=== PATIENT | female | born 1960 | race Caucasian/White ===

== ENCOUNTER 2020-04-16 16:35 | Inpatient (IN) | payer MEDICARE, SELFPAY ==
[2020-04-16 16:36] VITALS: BP 126/64; PULSE 78; RESP 16; TEMP 36.7; O2SAT 99; BMI 37.9
--- NOTE | 2020-04-16 16:37 | XR_ITS ---
PROCEDURE: XR ANKLE LT MIN 3V CLINICAL INDICATION: PAIN COMPARISON: No exams were available for comparison FINDINGS: There is an old fracture involving the tip of the medial malleolus. There is diffuse soft tissue swelling. An old fracture also noted at the posterior tibial region. No acute fracture or dislocation. The joint space is fairly well preserved. IMPRESSION: Chronic changes, no acute finding Dictated by: Victor Manuel Duarte MD 04/16/2020 17:12 Victor Manuel Duarte MD in [place] 04/16/2020 17:12
--- NOTE | 2020-04-16 16:37 | XR_ITS ---
PROCEDURE: XR FOOT LT MIN 3V CLINICAL INDICATION: PAIN COMPARISON: No exams were available for comparison FINDINGS: Hammertoe deformity involves the 1st through 5th toes. There is diffuse soft tissue swelling. Osteoarthritic changes are present at the talonavicular joint. No acute fracture or bony erosive process evident. Other findings:None. IMPRESSION: Hammertoe deformity with degenerative change and diffuse soft tissue swelling Dictated by: Victor Manuel Duarte MD 04/16/2020 17:14 Victor Manuel Duarte MD in [facility] 04/16/2020 17:14
--- NOTE | 2020-04-16 17:15 | HMH.EDGENADL ---
ED Disposition Condition on Discharge: Good - Critical Care Critical Care Time: No <Ced Oconnor - Last Filed: 04/16/20 19:57> <Casimiro Barraza - Last Filed: 04/16/20 22:09> Clinical Impression: Edema of left foot, Left foot pain, Cellulitis and abscess of foot, LANCE (obstructive sleep apnea), Obesity (BMI 30-39.9), Elevated erythrocyte sedimentation rate, Elevated C-reactive protein (CRP) HTN (hypertension) Qualifiers: Hypertension type: essential hypertension Qualified Code(s): I10 - Essential (primary) hypertension Anemia Qualifiers: Anemia type: unspecified type Qualified Code(s): D64.9 - Anemia, unspecified Disposition: Admitted as Observation Referrals: Casimiro Barraza MD [Primary Care Provider] - Attestation: On 04/16/20, the high probability of a clinically significant, sudden or life threatening deterioration of the following system(s) required my full and direct attention, intervention and personal management. The time I documented below is in addition to time spent performing reported procedures but includes the following listed in this critical care notation. Medical Decision Making - Addison Inquiry Pt receiving controlled substance: No - Lab Data Result diagrams: 04/16/20 17:45 04/16/20 17:45 - Radiology Data #1 Image(s): Ankle, Foot/Toes Image Reviewed: Yes I reviewed the patient's radiology image, Yes I have reviewed radiologist's interpretation - Physician Consults Physician Consulted: Madi Time: 19:58 Reason -: Admission, Pt condition Comment/Response: Dr. Barraza is present in the emergency department and saw the patient. He states the patient's left foot is not normally that big. He request CT, inflammatory markers, and he will admit the patient to his service. <Ced Oconnor - Last Filed: 04/16/20 19:57> - Medical Records Medical records reviewed: Yes: I reviewed the patient's medical records. - Lab Data Lab results reviewed: Yes: I reviewed the patient's lab results. Result diagrams: 04/16/20 17:45 04/16/20 17:45 - CT Data CT Scan: Other Time Received: 22:[address] Reviewed: Yes: I have viewed the radiologist's interpretation Preliminary Findings: Abnormal (cellulitis ) <Casimiro Barraza - Last Filed: 04/16/20 22:09> Vital Signs: 04/16/20 16:36 04/16/20 20:11 Temperature 98.1 F Temperature Source Oral Pulse Rate [Radial] 78 80 Respiratory Rate 16 16 Blood Pressure [Right Arm] 126/64 138/68 Blood Pressure Mean [Right Arm] 84 91 Blood Pressure Source [Right Arm] Automatic Cuff Blood Pressure Position [Right Arm] Sitting Sitting 02 Sat by Pulse Oximetry 99 98 Oxygen Delivery Method Room Air Room Air - Lab Data Lab Results 04/16/20 17:45: WBC 7.4, RBC 3.14 L, Hgb 9.8 L, Hct 29.8 L, MCV 94.8, MCH 31.2, MCHC 33.0, RDW 13.8, Plt Count 226, MPV 8.1, Neut % (Auto) 67.2, Lymph % (Auto) 22.0, [place] % (Auto) 9.2, Eos % (Auto) 1.2, Baso % (Auto) 0.4, Neut # (Auto) 5.0, Lymph # (Auto) 1.6, [place] # (Auto) 0.7, Eos # (Auto) 0.1, Baso # (Auto) 0.0 04/16/20 17:45: Sodium 134 L, Potassium 3.7, Chloride 102, Carbon Dioxide 23, Anion Gap 12.7, BUN 13, Creatinine 1.00, Estimated Creat Clear 99, Estimated GFR 56 L, Est GFR ( Amer) 68, Glucose 101 H, Calcium 8.9 04/16/20 17:45: D-Dimer 0.86 04/16/20 17:45: Lactate 0.9 04/16/20 17:45: ESR 118 H 04/16/20 17:45: C-Reactive Protein 306.0 H 04/16/20 17:45: Procalcitonin 0.179 04/16/20 19:45: SARS-CoV-2 IgG Ab (Rapid) Negative, SARS-CoV-2 IgM Ab (Rapid) Negative Orders (Tests/Meds): ED MEDICATIONS Generic Name Dose Route Start Last Admin Trade Name Freq PRN Reason Stop Dose Admin Vancomycin HCl 2,000 mg/ 250 mls @ 125 mls/hr 04/16/20 23:00 Sodium Chloride IV 04/17/20 00:59 ONCE ONE Protocol Vancomycin HCl 1,500 mg/ 250 mls @ 125 mls/hr 04/17/20 11:00 Sodium Chloride IV 05/01/20 10:59 Q12 [facility] Protocol Miscellaneous 1 each 04/16/20 22:00 Vancomycin Consult Re
[2020-04-16 18:04] LABS: Chloride 102 mmol/L (98-107); Sodium 134 mmol/L (136-145)
[2020-04-16 18:05] LABS: Potassium 3.7 mmoL/L (3.5-5.1)
[2020-04-16 18:07] LABS: Anion Gap 12.7 mEq/L (5-15); Basophils % 0.4 % (0.1-2.0); Blood Urea Nitrogen 13 mg/dl (7-17); Carbon Dioxide 23 mmol/L (22.0-30.0); Creatinine Clearance Estimated 99 mL/min (50-200); Eosinophils # 0.1 K/mm3 (0.0-0.4); Eosinophils % 1.2 % (0.1-12.0); Estimated Glomerular Filt Rate 56 ml/min (>60); GFR (African American) 68 ML/MIN (>60); Hematocrit 29.8 % (37.0-47.0); Hemoglobin 9.8 g/dL (12.2-16.2); Lymphocytes # 1.6 K/mm3 (0.7-4.5); Mean Corpuscular Hemoglobin 31.2 pg (27.0-31.2); Mean Corpuscular Volume 94.8 fl (81-99); Mean Platelet Volume 8.1 fl (7.4-10.4); Monocytes # 0.7 K/mm3 (0.1-1.0); Monocytes % 9.2 % (1.7-9.3); Neutrophils % 67.2 % (37.0-80.0); Platelet Count 226 K/mm3 (142-424); Red Blood Count 3.14 M/mm3 (4.20-5.40); Red Cell Distribution Width 13.8 % (11.5-17.5); White Blood Count 7.4 K/mm3 (4.8-10.8)
[2020-04-16 18:08] LABS: Calcium 8.9 mg/dl (8.4-10.2); Glucose 101 mg/dl (74-100); Lactic Acid 0.9 mmol/L (0.7-2.1)
[2020-04-16 18:13] LABS: D-Dimer 0.86 ug/mL (0.15-8.0)
--- NOTE | 2020-04-16 18:29 | PC.NURSE ---
Pt up to restroom by wheelchair at this time.
--- NOTE | 2020-04-16 19:51 | PC.NURSE ---
spoke with jacquelyn re: status. both dr tinsley and dr domingo at bedside at this time
--- NOTE | 2020-04-16 19:56 | CT_ITS ---
PROCEDURE: CT FOOT LT W CON CLINICAL HISTORY: swelling, pain Left foot pain and swelling COMPARISON: No exams were available for comparison TECHNIQUE: Axial images obtained with sagittal and coronal reformats. All CT scans at the facility use one or more dose reduction, viz: automated exposure control, ma/kV adjustment per patient size (including targeted exams where dose is matched to indication, i.e. head), or iterative reconstruction technique. FINDINGS: There is mild diffuse subcutaneous edema involving the left lower extremity extending from the hip all the way to the ankle. No drainable fluid collections are evident. No bony destructive process is evident. There are osteoarthritic changes at the calcaneocuboid and cuboid cuneiform joint. Artifact is present from a total left knee prosthesis. There is some increased density in the suprapatellar region which could be due to postsurgical fibrotic changes or complex effusion. There are mild osteoarthritic changes of the hip. Unremarkable appearing vascular structures. 6 cm lipoma is present in the anterior lateral ankle region. There is diffuse asymmetric subcutaneous soft tissue swelling along the dorsal aspect of the foot consistent with cellulitis with no obvious abscess. There are scattered small lymph nodes in the inguinal region measuring up to 3 by 1 cm IMPRESSION: 1. Total left knee prosthesis present with overlying artifact. There appears to be good alignment of the prosthesis. There is increased density in the suprapatellar region which may be due to scarring or complicated effusion. 2. Diffuse subcutaneous soft tissue swelling which may be due to cellulitis. No drainable fluid collections apparent. No abscess evident. There is a lipoma along the anterior lateral aspect of the ankle measuring approximately 6 cm. There is diffuse subcutaneous soft tissue swelling along the dorsal aspect of the foot consistent with cellulitis. No obvious abscess. Dictated by: Victor Manuel Duarte MD 04/17/2020 10:03 Victor Manuel Duarte MD in [facility] 04/17/2020 10:03
[2020-04-16 20:11] VITALS: BP 138/68; PULSE 80; RESP 16; O2SAT 98
[2020-04-16 20:27] LABS: Procalcitonin 0.179 ng/mL (0.0-2.0)
[2020-04-16 20:59] LABS: Coronavirus 19 IgG Antibody Negative (Negative); Coronavirus 19 IgM Antibody Negative (Negative)
[2020-04-16 21:13] LABS: Erythrocyte Sedimentation Rate 118 mm/hr (0-30)
--- NOTE | 2020-04-16 21:54 | PC.NURSE ---
call received from td. advised to give vancomycin loading dose of 2 grams, then 1.5 grams each 12 hours after.
--- NOTE | 2020-04-16 22:11 | PC.NURSE ---
call placed to house for bed request. orders placed per
--- NOTE | 2020-04-16 22:14 | PC.NURSE ---
patient admitted to 208
[2020-04-16 22:21] VITALS: BMI 35.7
[2020-04-16 22:23] LABS: Microscopic, Urine URINE MICROSCOPIC (MICROSCOPIC)
[2020-04-16 22:25] LABS: Hemoglobin A1C 4.8 % (4.0-6.0)
[2020-04-16 22:26] LABS: Appearance,Urine Cloudy (Clear); Bilirubin,Urine Negative (Negative); Blood, Urine 1+ (Negative); Color,Urine YELLOW (Yellow); Glucose,Urine (UA) Negative (Negative); Ketones,Urine Negative (Negative); Leukocyte Esterase,Urine 3+ (Negative); Nitrate,Urine Negative (Negative); PH,Urine 7.5 (5.0-8.5); Protein,Urine TRACE (Negative); Specific Gravity, Urine 1.015 (1.005-1.030)
[2020-04-16 22:38] VITALS: BP 121/58; PULSE 73; RESP 18; TEMP 36.8; O2SAT 98
[2020-04-16 22:42] LABS: Bacteria,Urine 2+ /lpf; Mucus,Urine 1+ /lpf
--- NOTE | 2020-04-16 23:10 | PC.NURSE ---
patient up to floor via wheelchair.
[2020-04-16 23:43] VITALS: BP 112/87; PULSE 82; RESP 16; TEMP 36.8; O2SAT 94
[2020-04-17] VITALS (18 sets, daily range): BP systolic 117–154; BP diastolic 56–93; PULSE 72–89; RESP 16–20; TEMP 36.3–37; O2SAT 90–100; BMI 35.8
--- NOTE | 2020-04-17 06:00 | PC.NURSE ---
Pt is A&Ox4 and has c/o pain to head and foot. Pt given tylenol po 1x. Pt wa able to sleep ~4a till breakfast. Pt has had 3x episodes of urinary incontinence and has also used the BSC & BR. Pt has been cooperative with staff. Pt NPO for upcoming Kiera consult. Wound pictures obtained on arrival to the 2nd floor. Photo consent obtained and is in chart. Lungs CTA. ABD is soft, tender to Lower ABD & pelvic. Pt c/o of dysuria, frequency, and urgency. Urine is thick, cloudy and slightly purulent. Urine cx is pending. Pitting edema to BLE L-4+, R 2+. LLE red, blood blisters noted, hot, and weeping near toes and near ankle. Bruise under left eye from previous fall. Bed alarm in use for safety.
[2020-04-17 07:04] LABS: POC Glucose,Bedside 110 (70-110)
--- NOTE | 2020-04-17 07:30 | HMH.PHAVTE ---
[facility] Pharmacy VTE Monitoring - Patient Demographics Admission date: 04/17/20 Report Date: 04/17/20 Time: 07:30 Allergies/Adverse Reactions: Patient Allergies aspirin Allergy (Verified 04/16/20 19:04) azithromycin Allergy (Verified 04/16/20 19:04) bupropion [From Wellbutrin SR] Allergy (Verified 04/16/20 23:54) Cephalosporins Allergy (Verified 04/16/20 19:04) erythromycin base Adverse Reaction (Mild, Verified 04/16/20 23:55) tramadol Adverse Reaction (Mild, Verified 04/16/20 23:55) Height: 1.68 m Weight: 100.868 kg Patient Problems: Current Active Problems Edema of left foot (Acute) Left foot pain (Acute) Cellulitis and abscess of foot (Acute) LANCE (obstructive sleep apnea) (Acute) HTN (hypertension) (Acute) Obesity (BMI 30-39.9) (Acute) Elevated erythrocyte sedimentation rate (Acute) Elevated C-reactive protein (CRP) (Acute) Anemia (Acute) - VTE Risk Labs: VTE Related Lab Results Hgb 9.8 g/dL (12.2-16.2) L 04/16/20 17:45 Hct 29.8 % (37.0-47.0) L 04/16/20 17:45 Plt Count 226 K/mm3 (142-424) 04/16/20 17:45 BUN 13 mg/dl (7-17) 04/16/20 17:45 Creatinine 1.00 mg/dl (0.52-1.04) 04/16/20 17:45 Estimated Creat Clear 99 mL/min (50-200) 04/16/20 17:45 VTE Score: 6 VTE Risk Level: Moderate Risk - Prophylaxis VTE Prophylaxis Ordered?: Yes Types of VTE Prophylaxis: TEDS Knee High Location of Applied Device: Right Leg, Refused
[2020-04-17 07:35] LABS: Basophils % 0.4 % (0.1-2.0); Eosinophils # 0.1 K/mm3 (0.0-0.4); Eosinophils % 1.3 % (0.1-12.0); Hematocrit 29.8 % (37.0-47.0); Hemoglobin 9.5 g/dL (12.2-16.2); Lymphocytes # 1.8 K/mm3 (0.7-4.5); Lymphocytes % 22.6 % (10-50); Mean Corpuscular HGB Conc 31.8 g/dL (31.8-35.4); Mean Corpuscular Hemoglobin 30.3 pg (27.0-31.2); Mean Corpuscular Volume 95.3 fl (81-99); Mean Platelet Volume 8.3 fl (7.4-10.4); Monocytes # 0.7 K/mm3 (0.1-1.0); Neutrophils # 5.2 K/mm3 (1.8-7.8); Neutrophils % 66.7 % (37.0-80.0); Platelet Count 222 K/mm3 (142-424); Red Blood Count 3.13 M/mm3 (4.20-5.40); Red Cell Distribution Width 13.8 % (11.5-17.5); White Blood Count 7.8 K/mm3 (4.8-10.8)
[2020-04-17 07:41] LABS: Chloride 104 mmol/L (98-107); Sodium 132 mmol/L (136-145)
[2020-04-17 07:42] LABS: Potassium 3.4 mmoL/L (3.5-5.1)
[2020-04-17 07:44] LABS: Blood Urea Nitrogen 11 mg/dl (7-17); Creatinine Clearance Estimated 94 mL/min (50-200); Estimated Glomerular Filt Rate 64 ml/min (>60); GFR (African American) 77 ML/MIN (>60)
[2020-04-17 07:45] LABS: Anion Gap 8.4 mEq/L (5-15); Calcium 8.7 mg/dl (8.4-10.2); Carbon Dioxide 23 mmol/L (22.0-30.0); Glucose 95 mg/dl (74-100); Magnesium 1.6 mg/dl (1.6-2.3)
--- NOTE | 2020-04-17 08:00 | CA_ITS ---
APPROVED REPORT Bilateral Lower Extremity Venous Study for DVT. Captain Waiter/Waitress: Natasha Bernard RVT Indications Lower Extremity Edema: Bilateral swollen leg - positive homans,lymphedema Vein Imaging CFV (R): compressive, spontaneous, phasic, augmentation FEM (R): compressive, spontaneous, phasic, augmentation POP (R): compressive, spontaneous, phasic, augmentation PTV (R): Compressible GSV (R): Compressible Peroneals (R):Compressible GAS (R): Compressible CFV (L): compressive, spontaneous, phasic, augmentation FEM (L): compressive, spontaneous, phasic, augmentation POP (L): compressive, spontaneous, phasic, augmentation PTV (L): Compressible GSV (L): Compressible Peroneals (L):Compressible GAS (L): Compressible Findings Study suggests no evidence of DVT of the bilateral lower extremities. Study suggests no evidence of SVT of the bilateral lower extremities. There is multiple lymph nodes seen in the left groin the largest measuring 3.1 X 2.3 cm. There is a 3.4X 2.9 cm cystic lesion right popliteal fossa probable Isabel's cyst. Conclusion Study suggests no evidence of DVT of the bilateral lower extremities. Study suggests no evidence of SVT of the bilateral lower extremities. There is multiple lymph nodes seen in the left groin the largest measuring 3.1 X 2.3 cm. There is a 3.4X 2.9 cm cystic lesion right popliteal fossa probable Isabel's cyst. Electronically signed by : Victor Manuel Duarte MD 04/17/2020 10:04:41
--- NOTE | 2020-04-17 08:13 | HMH.PHACONS ---
- Pharmacy Consult Date: 04/17/20 Time: 08:13 Referring provider: DR. COLLIER Reason for Consult:: VANCOMYCIN DOSING Allergies and ADEs:: Allergies Allergy/AdvReac Type Severity Reaction Status Date / Time aspirin Allergy Verified 04/16/20 19:04 azithromycin Allergy Verified 04/16/20 19:04 bupropion Allergy Verified 04/16/20 23:54 [From Wellbutrin SR] Cephalosporins Allergy Verified 04/16/20 19:04 erythromycin base AdvReac Mild Verified 04/16/20 23:55 tramadol AdvReac Mild Verified 04/16/20 23:55 Home Medications:: Home Medications Medication Instructions Recorded Confirmed Type diazepam 5 mg tablet 2.5 mg PO BID PRN #30 tab 04/08/20 04/16/20 Rx Acetaminophen [Tylenol 500mg 500 mg PO Q6HP PRN 04/17/20 04/17/20 History tablet] Albuterol Sulfate [Albuterol 2 puff IH Q6HP PRN 04/17/20 04/17/20 History Sulfate Hfa] Azelastine HCl [Azelastine Nasal 137 mg NOSTRIL-B BID 04/17/20 04/17/20 History [place] 30mL Bottle] Bethanechol Chloride [Urecholine 25 mg PO BID 04/17/20 04/17/20 History 25mg Tablet] Cholecalciferol (Vitamin D3) 5,000 mcg PO DAILY 04/17/20 04/17/20 History [Vitamin D3] Ferrous Sulfate [Ferrous Sulfate 325 mg PO TID 04/17/20 04/17/20 History 325mg Tab] Fludrocortisone Acetate [Florinef 0.1 mg PO DAILY 04/17/20 04/17/20 History 0.1mg tablet] Fluticasone Propionate [Flonase 2 spr NS DAILY 04/17/20 04/17/20 History 50mcg nasal spray 16gm] Gabapentin [Gabapentin 300mg Cap] 300 mg PO TID 04/17/20 04/17/20 History Linaclotide [Linzess] 72 mcg PO HS 04/17/20 04/17/20 History Loperamide HCl [Imodium 2 mg 2 mg PO Q6HP PRN 04/17/20 04/17/20 History capsule] Loratadine [Claritin] 10 mg PO DAILY 04/17/20 04/17/20 History Montelukast Sodium 10 mg PO HS 04/17/20 04/17/20 History [place]-3 Acid Ethyl Esters [Lovaza] 2 gm PO BID 04/17/20 04/17/20 History Omeprazole [Omeprazole 20mg Tab] 20 mg PO DAILY 04/17/20 04/17/20 History Potassium Chloride [Pot Chlor 20 20 meq PO DAILY 04/17/20 04/17/20 History mEq Packet] Quetiapine Fumarate 300 mg PO HS 04/17/20 04/17/20 History Sucralfate 100 mg PO QID 04/17/20 04/17/20 History Venlafaxine HCl [Venlafaxine HCl 150 mg PO HS 04/17/20 04/17/20 History ER] lamoTRIgine [Lamotrigine] 100 mg PO BID 04/17/20 04/17/20 History ondansetron HCL [Ondansetron 4mg 4 mg PO TIDP PRN 04/17/20 04/17/20 History tab*] polyethylene glycoL 3350 [Miralax 17 gm PO DAILY 04/17/20 04/17/20 History Powder] Height: 1.68 m Weight: 100.868 kg Laboratory Results:: Laboratory Results - last 24 hr 04/16/20 17:45: WBC 7.4, RBC 3.14 L, Hgb 9.8 L, Hct 29.8 L, MCV 94.8, MCH 31.2, MCHC 33.0, RDW 13.8, Plt Count 226, MPV 8.1, Neut % (Auto) 67.2, Lymph % (Auto) 22.0, [place] % (Auto) 9.2, Eos % (Auto) 1.2, Baso % (Auto) 0.4, Neut # (Auto) 5.0, Lymph # (Auto) 1.6, [place] # (Auto) 0.7, Eos # (Auto) 0.1, Baso # (Auto) 0.0 04/16/20 17:45: Sodium 134 L, Potassium 3.7, Chloride 102, Carbon Dioxide 23, Anion Gap 12.7, BUN 13, Creatinine 1.00, Estimated Creat Clear 99, Estimated GFR 56 L, Est GFR ( Amer) 68, Glucose 101 H, Calcium 8.9 04/16/20 17:45: D-Dimer 0.86 04/16/20 17:45: Lactate 0.9 04/16/20 17:45: ESR 118 H 04/16/20 17:45: C-Reactive Protein 306.0 H 04/16/20 17:45: Procalcitonin 0.179 04/16/20 17:45: Hemoglobin A1c 4.8 04/16/20 19:45: SARS-CoV-2 IgG Ab (Rapid) Negative, SARS-CoV-2 IgM Ab (Rapid) Negative 04/16/20 22:17: Urine Color Yellow, Urine Appearance Cloudy, Urine pH 7.5, Ur Specific [place] 1.015, Urine Protein Trace, Urine Glucose (UA) Negative, Urine Ketones Negative, Urine Blood 1+, Urine Nitrate Negative, Urine Bilirubin Negative, Urine Urobilinogen 4.0, Ur Leukocyte Esterase 3+ A, Urine RBC 3-5, Urine WBC 5-10, Ur Squamous Epith Cells 3-5, Urine Bacteria 2+, Urine Mucus 1+ 04/17/20 06:57: POC Glucose 110 04/17/20 07:06: WBC 7.8, RBC 3.13 L, Hgb 9.5 L, Hct 29.8 L, MCV 95.3, MCH 30.3, MCHC 31.8, RDW 13.8, Plt Count 222, MPV 8.3, Neut % (Auto) 66.7, Ly
--- NOTE | 2020-04-17 08:19 | PC.WOUNDNOTE ---
Wound Location: Left Lower Extr./ Left foot Length: Width: Depth: Undermining Y/N: Tunneling cm: Granulation %: Slough/necrotic tissue %: Inflammation/swelling Y/N: Y Pain and/or tenderness Y/N: Y Color: Leona Red [place] Blue Consistency: Thin Amount: Small Odor Y/N: Y
--- NOTE | 2020-04-17 08:40 | PC.WOUNDNOTE ---
Wound Location: LLE, inner ankle Length: 2mm Width: 2mm Scant Serousanguineos discharge
--- NOTE | 2020-04-17 08:41 | PC.WOUNDNOTE ---
Wound Location: R foot/ toes Length: Width: Depth: Dry, blackened alva toe nails Dry, pale skin Pitting edema No discharge
--- NOTE | 2020-04-17 08:45 | PC.WOUNDNOTE ---
Wound Location: Left foot, ball of foot and toes Length: Width:
--- NOTE | 2020-04-17 08:47 | HMH.HP ---
*Admission Date: 04/17/20 *Chief complaint: swelling *History of present illness: 60 year old female that is a resident at [facility]. Brought in by ambulance from [facility] home. She complains of pain in her left foot and ankle. She says that she lost her footing and fell, she thinks 2 or 3 days ago. She is not sure exactly what happened to her left foot and ankle, but states that she now has pain in her foot, in particular her heel and is unable to bear weight due to pain. She has lymphedema and says her left lower extremity is typically much larger than her right. She denies fever. Patient has 3-4+ edema to the left lower extremity, 2+ edema to the right lower extremity and feet. Patient does have some blood blisters noted to her left third fourth and fifth toes. They are purplish in color patient also has some bruising what appears to be on the lateral fifth side of foot. Pt admitted and podiatry consult placed. [facility] History I have reviewed the patient's past medical history: Yes Medical History: Denies:: Diabetes Mellitus Type 1, Diabetes Mellitus Type 2 (pt denies, stated I used to be but not anymore ) *Have you ever received a pneumonia vaccine?: Yes (PATIENT UNSURE OF DATE) *Have you received a flu vaccine this season?: No (REFUSES) Laterality Cases: Left: Total Knee Replacement - *Social History Smoking Status: Never smoker Alcohol Intake: never *Occupational Status:: disabled Housing: assisted living facility *Travel in the last 8 weeks: None Family Hx:: Unable to obtain Review of Systems - Review of Systems Review of systems:: pertinent systems reviewed and negative unless documented below - Constitutional Denies body ache(s), Denies fatigue - Eyes Denies blurry vision - ENT Denies bleeding gums - *Cardiovascular Denies chest pain with activity - *Respiratory Denies chest congestion - *Gastrointestinal Denies bloating - *Genitourinary Denies abnormal vaginal bleeding - *Musculoskeletal Reports abnormal walking, Denies joint pain - Integumentary/Breasts Reports sores, Denies bleeding lesions - *Neurologic Denies dizziness - Psychiatric Denies abnormal sleep pattern - Endocrine Denies excessive sweating - Hematologic/Lymphatic Denies easy bruising - Allergic/Immunologic Denies seasonal runny nose Meds Home Medications Medication Instructions Recorded Confirmed Type diazepam 5 mg tablet 2.5 mg PO BID PRN #30 tab 04/08/20 04/16/20 Rx Acetaminophen [Tylenol 500mg 500 mg PO Q6HP PRN 04/17/20 04/17/20 History tablet] Albuterol Sulfate [Albuterol 2 puff IH Q6HP PRN 04/17/20 04/17/20 History Sulfate Hfa] Azelastine HCl [Azelastine Nasal 137 mg NOSTRIL-B BID 04/17/20 04/17/20 History [place] 30mL Bottle] Bethanechol Chloride [Urecholine 25 mg PO BID 04/17/20 04/17/20 History 25mg Tablet] Cholecalciferol (Vitamin D3) 5,000 mcg PO DAILY 04/17/20 04/17/20 History [Vitamin D3] Ferrous Sulfate [Ferrous Sulfate 325 mg PO TID 04/17/20 04/17/20 History 325mg Tab] Fludrocortisone Acetate [Florinef 0.1 mg PO DAILY 04/17/20 04/17/20 History 0.1mg tablet] Fluticasone Propionate [Flonase 2 spr NS DAILY 04/17/20 04/17/20 History 50mcg nasal spray 16gm] Gabapentin [Gabapentin 300mg Cap] 300 mg PO TID 04/17/20 04/17/20 History Linaclotide [Linzess] 72 mcg PO HS 04/17/20 04/17/20 History Loperamide HCl [Imodium 2 mg 2 mg PO Q6HP PRN 04/17/20 04/17/20 History capsule] Loratadine [Claritin] 10 mg PO DAILY 04/17/20 04/17/20 History Montelukast Sodium 10 mg PO HS 04/17/20 04/17/20 History [place]-3 Acid Ethyl Esters [Lovaza] 2 gm PO BID 04/17/20 04/17/20 History Omeprazole [Omeprazole 20mg Tab] 20 mg PO DAILY 04/17/20 04/17/20 History Potassium Chloride [Pot Chlor 20 20 meq PO DAILY 04/17/20 04/17/20 History mEq Packet] Quetiapine Fumarate 300 mg PO HS 04/17/20 04/17/20 History Sucralfate 100 mg PO QID 04/17/20 04/17/20 History Venlafaxine HCl [Ve
--- NOTE | 2020-04-17 08:51 | PC.WOUNDNOTE ---
Wound Location: bruising under left eye Length: 1 Width: 0.5
--- NOTE | 2020-04-17 09:53 | ECG_ITS ---
APPROVED REPORT Exam: Resting ECG HR:73 bpm ECG Measurements Heart Rate 73 AXES ME 150 P 88 QRSd 98 QRS 81 QT 408 T 34 QTc 449 Conclusion Normal sinus rhythm Normal ECG Electronically signed by : Francis Magdaleno, 04/19/2020 20:00:28
--- NOTE | 2020-04-17 10:03 | PC.NURSE ---
Called to bedside by KERA Nassar for STAT EKG. 12-Lead EKG completed without complications, RN reviewed. Copy transmitted and placed in chart.
--- NOTE | 2020-04-17 10:10 | SW/DCPLANNER ---
This patient currently resides at [facility]. I have spoke with Monica from [facility] whom provided the following information: they [facility] , patient has a history of heart issues, feet swelling and UTI, patient generally requires IV antibiotics due to UTI, patients brother and sister are involved, patient ambulates at [facility] and uses a rolling walker to get herself up safely, Monica is interested in this patient returning once medically stable for discharge. Patient is not ready for discharge at this time but I will continue to follow up with Monica from [facility].
--- NOTE | 2020-04-17 10:12 | HMH.ORTHOCON ---
*Admission Date: 04/17/20 <Caitlyn Mireles - 04/17/20 11:00> *Reason for consult:: Left infected foot, Lymphedema, cellulitis <Caitlyn Mireles - 04/17/20 11:00> *History of present illness: Date of : 1960 Attending Provider: Casimiro Barraza *Admission Date: 04/17/20 MS. Oralndo is a 60 year old female that is a resident at [facility]. Patient resting comfortably in the bed this morning she is alert and responds appropriately to my questions. Patient does tend to drift back off to sleep, the nurse reports that she did not get much sleep at all last night and was up most of the night with her new admission and is now trying to rest. Patient has been n.p.o. after midnight for our podiatry consult. Patient has 3-4+ edema to the left lower extremity, 2+ edema to the right lower extremity and feet. Patient does have some blood blisters noted to her left third fourth and fifth toes. They are purplish in color patient also has some bruising what appears to be on the lateral fifth side of foot. Toes are very edematous look like little sausages unable to palpate pedal pulses due to the extreme edema. Nails are very long and dystrophic x10 nail fungus noted to bilateral hallux nails. The anterior part of the lower leg rodriguez and feet is where the erythema starts, there is some mild warmth noted to palpation as well. The left hallux has very dry keratosis skin noted to the medial side of the hallux that is cracked open and callused. We will plan to clean up the blisters as well as do a nail trim at the bedside today. [facility] History Medical History: Denies:: Diabetes Mellitus Type 1, Diabetes Mellitus Type 2 (pt denies, stated I used to be but not anymore ) *Have you ever received a pneumonia vaccine?: Yes (PATIENT UNSURE OF DATE) *Have you received a flu vaccine this season?: No (REFUSES) Laterality Cases: Left: Total Knee Replacement - *Social History Smoking Status: Never smoker Alcohol Intake: never *Occupational Status:: disabled Housing: assisted living facility *Travel in the last 8 weeks: None Family Hx:: Unable to obtain <Caitlyn Mireles 04/17/20 11:00> [facility] History Medical History: Denies:: Diabetes Mellitus Type 1, Diabetes Mellitus Type 2 (pt denies, stated I used to be but not anymore ) <Caitlyn Mireles 04/17/20 11:00> *Have you ever received a pneumonia vaccine?: Yes (PATIENT UNSURE OF DATE) <Caitlyn Mireles 04/17/20 11:00> *Have you received a flu vaccine this season?: No (REFUSES) <Caitlyn Mireles 04/17/20 11:00> Laterality Cases: Left: Total Knee Replacement <Caitlyn Mireles 04/17/20 11:00> - *Social History Smoking Status: Never smoker <Caitlyn Mireles 04/17/20 11:00> Alcohol Intake: never <Caitlyn Mireles 04/17/20 11:00> *Occupational Status:: disabled <Caitlyn Mireles 04/17/20 11:00> Housing: assisted living facility <Caitlyn Mireles 04/17/20 11:00> *Travel in the last 8 weeks: None <Caitlyn Mireles 04/17/20 11:00> Family Hx:: Unable to obtain <Caitlyn Mireles 04/17/20 11:00> Review of Systems - Constitutional Comments: Patient is alert and oriented she is just very drowsy and sleepy this morning due to lack of sleep through the night and due to her new admission. <AlineCaitlyn Machado 04/17/20 11:00> - Eyes Denies change in vision <AlineCaitlyn Machado 04/17/20 11:00> - ENT Denies headache(s) <AlineCaitlyn Machado 04/17/20 11:00> - *Cardiovascular Reports generalized swelling, Reports leg swelling, Reports foot swelling, Denies shortness of breath <AlineCaitlyn Carter 04/17/20 11:00> - *Respiratory Denies cough, Denies shortness of breath <AlineCaitlyn Machado 04/17/20 11:00> - *Gastrointestinal Denies abdominal pain <Caitlyn Mireles - 04/17/20 11:00> - *Musculoskeletal Denies muscle weakness <Caitlyn Mireles 04/17/20 11:00> - Integumentary/Breasts Reports dry skin, Reports redness, Reports lesions, Reports other, Denies nail
[2020-04-17 10:30] LABS: POC Glucose,Bedside 83 (70-110)
--- NOTE | 2020-04-17 11:30 | DIET.NUTRFU ---
Confirmed with Jasmyn pt is on Diabetic diet there with regular consistency and thin liquids. Pt does report difficulty with swallowing, will make moderate soft modifications for safety as diet advances. Please observe pt at first meal time. Hx DM-A1C taken and found to be 4.8, BG WNL, will give regular diet post op and monitor.
--- NOTE | 2020-04-17 12:44 | HMH.ANESCL ---
[facility] Anesthesia Checklist - Patient Identification Patient Identification: Arm Band, Verbal (Name & ) - Structural Data Admitted From: Inpatient Planned Operative Procedure/s: Left foot I&D Consent for Planned Operative Procedure(s) Verified: Yes Verified Documents: Surgical Consent, History and Physical - NPO Status Verified Time NPO: 00:00 - Chart Verification Results Verified: CBC, BMP, UA - Additional verifications Anesthesia Reactions: No - Airway Assessment C-Spine Mobility Assessed: Yes TMJ Mobility Assessed: Yes - Neurological Assessment Level of Consciousness: Awake, Drowsy, Inappropriate, Restless Hx Seizures: No Numbness or tingling in extremities: Yes - Anesthesia Plan Anesthesia Risk discussed: Yes Anesthesia Plan: Verified ASA Class: III (Emergent) Anesthesia Type: MAC [facility] History I have reviewed the patient's past medical history: Yes Medical History: Denies:: Diabetes Mellitus Type 1, Diabetes Mellitus Type 2 (pt denies, stated I used to be but not anymore ) *Have you ever received a pneumonia vaccine?: Yes (PATIENT UNSURE OF DATE) *Have you received a flu vaccine this season?: No (REFUSES) Other Medical History: Reports: Anemia Comment:: Bipolar, obesity, cellulitis, chronic pain Anesthesia experience/problems:: None Laterality Cases: Left: Total Knee Replacement - *Social History Smoking Status: Never smoker Alcohol Intake: never Substance Use Type: denies use *Occupational Status:: disabled Housing: assisted living facility *Travel in the last 8 weeks: None Family Hx:: Unable to obtain
--- NOTE | 2020-04-17 12:46 | XR_ITS ---
PROCEDURE: XR FOOT LT MIN 3V CLINICAL INDICATION: Post op I D Follow-up surgery COMPARISON: CT CT FOOT LT W CON from 04/16/2020 CR XR FOOT LT MIN 3V from 04/16/2020 FINDINGS: Bandage artifact is present over the toes. No acute fracture or dislocation. Hammertoe deformity once again noted. There is diffuse soft tissue swelling along the dorsal aspect of the foot. Bandage artifact also noted along the plantar aspect of the foot and calcaneal area. There is some mottled soft tissue density at the plantar area and along the dorsal aspect of the toes which may be due to small amount gas within the soft tissues from the recent surgery. Other findings:None. IMPRESSION: Diffuse soft tissue swelling with postsurgical changes. Dictated by: Victor Manuel Duarte MD 04/17/2020 13:50 Victor Manuel Duarte MD in OV 04/17/2020 13:50
--- NOTE | 2020-04-17 13:16 | HMH.OPNOTE ---
Date of procedure: 04/17/20 Pre-op Diagnosis:: 1. Left foot abscess 2. Left foot cellulitis 3. B/L LE lymphedema 4. Left foot superficial ulcers digits 2-5 Post-op Diagnosis:: Same Procedure performed:: 1. Left foot incision and drainage Surgeon:: Laury Qureshi DPM HYDRAULIC TECHNICIAN:: James Elizabeth Anesthesia: MAC, local (20cc 0.5% marcaine plain) Estimated blood loss (mL): 20 Clinical Note:: Patient admitted 04/16/20 for LLE cellulitis. Started on IV antibiotics. Consulted for evaluation of cellulitis, possible abscess. X-rays, CT, venous Doppler essentially negative for DVT and abscess. Patient resides AV facility and has a history of lymphedema. See H&P. Operative findings:: There was edema and cellulitis noted to the left foot along the plantar medial arch and directly plantar. There are little pustules noted. Serosanguineous drainage expressed plantarly. The medial lateral ankle were swollen with serous drainage noted. The superficial ulcerations to the left second through fifth toes had previously been debrided at the bedside this morning or not debrided intraoperatively. No evidence of deep pus pockets. Operative note:: On this date and time the patient was deemed an appropriate surgical candidate. With informed consent time patient was transferred from the preoperative holding area to the operating theater. MAC anesthesia induced. Left lower extremities prepped and draped in normal sterile fashion. Left foot incision and drainage: 20 cc of half percent Marcaine plain were infiltrated in ankle block. Attention was directed to the left foot where a edema and erythema were noted. There was some pustules and induration noted on the plantar and medial plantar aspect of the foot. A 15 blade was used to puncture the pustules and immediately 2 cc of serosanguineous drainage was expressed. Wound culture taken. No malodorous purulent discharge was expressed. Several areas were punctured but no deep purulence were expressed. Attention was then directed to the medial ankle where an incision was made and carried down with blunt dissection; about 15 cc of clear serous lymphatic drainage was expressed. At this point 3 L of bacitracin irrigation was used in pulse lavage to flush all incisions. Areas were redebrided and no purulence noted, no deep tracking or sinus infections appreciated. The skin was then cleansed. 2-0 Prolene was used to reapproximate the skin. A 0.5 x 0.2 cm gap was left in the medial plantar arch and plantar foot. This area was left open for drainage. It was packed with half-inch iodophor packing. A Betadine soaked 4 x 4, dry sterile dressing was then applied over the left foot. Patient was woken from anesthesia with vitals stable and neurovascular status intact, prior to being transferred to recovery and then transferred back to the floor. Materials: 2-0 Prolene 1/2 packing Plan: Maintain dressing clean dry and intact to left foot, reinforce as necessary. Daily dressing changes per nursing starting 04/18/20: cleanse foot. Dry. Apply iodophor 1/2 or betadine soaked packing to opening in medial arch and plantar left foot. Then apply betadine soaked 4x4s to toe ulcers, followed by a dry sterile dressing (4x4, kerlix, Joselito). Consult case mgmt: post op shoe, DME (walker). PWB to left foot in post op shoe with walker. Recommend wound care and lymphedema clinic. Continue antibiotics per PCP team. Stable from Podiatry stand-point. Tourniquet time (min): 0 Condition: stable Disposition: floor Specimens:: Left foot wound culture Complications:: None
--- NOTE | 2020-04-17 15:45 | PC.NURSE ---
AT START OF THIS RN SHIFT PATIENT HAS BEEN FATIGUED, SNORING AND FINDING IT DIFFICULT TO KEEP HER EYES OPEN. THIS RN WOULD SPEAK PATIENT'S NAME AND PATIENT WOULD WAKE UP FOR A BRIEF MOMENT. PATIENT LEFT FLOOR FOR I&D OF LEFT FOOT. PATIENT ARRIVED BACK ON FLOOR AT 1325, SNORING. THIS RN CONTINUED TO CALLED OUT PATIENT'S NAME TO ASSESS NEUROLOGICAL STATUS. PATIENT A&O X4, LUNGS DIMINISHED, PULSES EQUAL. LEFT PEDAL PULSE HEARD THRU DOPPLER. PATIENT UP TO BEDSIDE COMMODE. OUTPUT WAS 1000, URINE WAS A BRIGHT ORANGE WITH A FOUL SMELL. NO OTHER CONCERNS AT THIS TIME.
[2020-04-17 16:37] LABS: POC Glucose,Bedside 158 (70-110)
[2020-04-17 23:46] LABS: POC Glucose,Bedside 128 (70-110)
[2020-04-18] VITALS: BP 145/74; PULSE 84; RESP 18; TEMP 36.8; O2SAT 97
[2020-04-18 04:00] VITALS: BP 126/54; PULSE 84; RESP 20; TEMP 37; O2SAT 98
[2020-04-18 05:00] VITALS: BMI 36.9
[2020-04-18 06:48] LABS: POC Glucose,Bedside 131 (70-110)
--- NOTE | 2020-04-18 07:55 | PC.NURSE ---
is A&Ox4. +2 pitting edema on BLE. Lt foot incision dressing remains CDI. Lung sounds clear t/o. Pt continues to tolerate RA appropriately. No BM noted this shift. Will continue to monitor.
[2020-04-18 08:00] VITALS: BP 127/64; PULSE 79; RESP 17; TEMP 36.6; O2SAT 94
[2020-04-18 09:00] LABS: Basophils % 0.4 % (0.1-2.0); Eosinophils # 0.2 K/mm3 (0.0-0.4); Eosinophils % 3.5 % (0.1-12.0); Hematocrit 28.9 % (37.0-47.0); Hemoglobin 9.4 g/dL (12.2-16.2); Lymphocytes # 1.5 K/mm3 (0.7-4.5); Lymphocytes % 22.7 % (10-50); Mean Corpuscular HGB Conc 32.5 g/dL (31.8-35.4); Mean Corpuscular Volume 95.4 fl (81-99); Mean Platelet Volume 7.9 fl (7.4-10.4); Monocytes # 0.5 K/mm3 (0.1-1.0); Neutrophils # 4.3 K/mm3 (1.8-7.8); Neutrophils % 66.3 % (37.0-80.0); Platelet Count 288 K/mm3 (142-424); Red Blood Count 3.03 M/mm3 (4.20-5.40); Red Cell Distribution Width 14.8 % (11.5-17.5); White Blood Count 6.5 K/mm3 (4.8-10.8)
[2020-04-18 09:07] LABS: Anion Gap 9.5 mEq/L (5-15); Blood Urea Nitrogen 6 mg/dl (7-17); Calcium 8.7 mg/dl (8.4-10.2); Carbon Dioxide 23 mmol/L (22.0-30.0); Chloride 107 mmol/L (98-107); Creatinine Clearance Estimated 97 mL/min (50-200); Estimated Glomerular Filt Rate 73 ml/min (>60); GFR (African American) 88 ML/MIN (>60); Glucose 101 mg/dl (74-100); Potassium 3.5 mmoL/L (3.5-5.1); Sodium 136 mmol/L (136-145)
[2020-04-18 11:40] VITALS: BP 153/82; PULSE 76; RESP 18; TEMP 36.6; O2SAT 93
[2020-04-18 11:49] LABS: Vancomycin,Trough 10.1 ug/mL (5.0-10.0)
[2020-04-18 11:52] LABS: POC Glucose,Bedside 89 (70-110)
--- NOTE | 2020-04-18 13:01 | HMH.PHACONS ---
- Pharmacy Consult Date: 04/18/20 Time: 13:01 Referring provider: DR. COLLIER Reason for Consult:: VANCOMYCIN TROUGH LEVEL Allergies and ADEs:: Allergies Allergy/AdvReac Type Severity Reaction Status Date / Time aspirin Allergy Verified 04/16/20 19:04 azithromycin Allergy Verified 04/16/20 19:04 bupropion Allergy Verified 04/16/20 23:54 [From Wellbutrin SR] Cephalosporins Allergy Verified 04/16/20 19:04 erythromycin base AdvReac Mild Verified 04/16/20 23:55 tramadol AdvReac Mild Verified 04/16/20 23:55 Home Medications:: Home Medications Medication Instructions Recorded Confirmed Type diazepam 5 mg tablet 2.5 mg PO BID PRN #30 tab 04/08/20 04/16/20 Rx Acetaminophen [Tylenol 500mg 500 mg PO Q6HP PRN 04/17/20 04/17/20 History tablet] Albuterol Sulfate [Albuterol 2 puff IH Q6HP PRN 04/17/20 04/17/20 History Sulfate Hfa] Azelastine HCl [Azelastine Nasal 137 mg NOSTRIL-B BID 04/17/20 04/17/20 History Euless 30mL Bottle] Bethanechol Chloride [Urecholine 25 mg PO BID 04/17/20 04/17/20 History 25mg Tablet] Cholecalciferol (Vitamin D3) 5,000 mcg PO DAILY 04/17/20 04/17/20 History [Vitamin D3] Ferrous Sulfate [Ferrous Sulfate 325 mg PO TID 04/17/20 04/17/20 History 325mg Tab] Fludrocortisone Acetate [Florinef 0.1 mg PO DAILY 04/17/20 04/17/20 History 0.1mg tablet] Fluticasone Propionate [Flonase 2 spr NS DAILY 04/17/20 04/17/20 History 50mcg nasal spray 16gm] Gabapentin [Gabapentin 300mg Cap] 300 mg PO TID 04/17/20 04/17/20 History Linaclotide [Linzess] 72 mcg PO HS 04/17/20 04/17/20 History Loperamide HCl [Imodium 2 mg 2 mg PO Q6HP PRN 04/17/20 04/17/20 History capsule] Loratadine [Claritin] 10 mg PO DAILY 04/17/20 04/17/20 History Montelukast Sodium 10 mg PO HS 04/17/20 04/17/20 History [place]-3 Acid Ethyl Esters [Lovaza] 2 gm PO BID 04/17/20 04/17/20 History Omeprazole [Omeprazole 20mg Tab] 20 mg PO DAILY 04/17/20 04/17/20 History Potassium Chloride [Pot Chlor 20 20 meq PO DAILY 04/17/20 04/17/20 History mEq Packet] Quetiapine Fumarate 300 mg PO HS 04/17/20 04/17/20 History Sucralfate 100 mg PO QID 04/17/20 04/17/20 History Venlafaxine HCl [Venlafaxine HCl 150 mg PO HS 04/17/20 04/17/20 History ER] lamoTRIgine [Lamotrigine] 100 mg PO BID 04/17/20 04/17/20 History ondansetron HCL [Ondansetron 4mg 4 mg PO TIDP PRN 04/17/20 04/17/20 History tab*] polyethylene glycoL 3350 [Miralax 17 gm PO DAILY 04/17/20 04/17/20 History Powder] Height: 1.68 m Weight: 104.326 kg Laboratory Results:: Laboratory Results - last 24 hr 04/17/20 16:23: POC Glucose 158 H 04/17/20 23:32: POC Glucose 128 H 04/18/20 06:41: POC Glucose 131 H 04/18/20 08:35: WBC 6.5, RBC 3.03 L, Hgb 9.4 L, Hct 28.9 L, MCV 95.4, MCH 31.0, MCHC 32.5, RDW 14.8, Plt Count 288 D, MPV 7.9, Neut % (Auto) 66.3, Lymph % (Auto) 22.7, [place] % (Auto) 7.0, Eos % (Auto) 3.5, Baso % (Auto) 0.4, Neut # (Auto) 4.3, Lymph # (Auto) 1.5, [place] # (Auto) 0.5, Eos # (Auto) 0.2, Baso # (Auto) 0.0 04/18/20 08:35: Sodium 136, Potassium 3.5, Chloride 107, Carbon Dioxide 23, Anion Gap 9.5, BUN 6 L D, Creatinine 0.80, Estimated Creat Clear 97, Estimated GFR 73, Est GFR ( Amer) 88, Glucose 101 H, Calcium 8.7 04/18/20 09:40: Vancomycin Trough 10.1 H 04/18/20 11:41: POC Glucose 89 Medical History: Denies:: Diabetes Mellitus Type 1, Diabetes Mellitus Type 2 (pt denies, stated I used to be but not anymore ), Seizures Assessment and Plan - Assessment and plan all Dx Assessment and Plan for all problems:: BASED ON PATIENT FACTORS AND VANCOMYCIN TROUGH LEVEL, RECOMMEND CONTINUING CURRENT DOSE OF VANCOMYCIN AT 2,000MG IV EVERY 18 HOURS. PHARMACY WILL CONTINUE TO MONITOR AND WILL ADJUST DOSE APPROPRIATE. -FELICIANO PEDERSEN, PHARMD
[2020-04-18 14:00] VITALS: BP 154/70; PULSE 78; RESP 18; TEMP 36.6; O2SAT 90
--- NOTE | 2020-04-18 14:49 | HMH.ACPN2 ---
Internal Medicine - PN: Subj *Date: 04/18/20 *Time: 09:10 Interval history: pt laying in bed states no c/o. dsg c/d/i Exam Vital signs and Labs for Last 24 Hours: Temp Pulse Resp BP Pulse Ox 97.9 F 76 18 153/82 H 93 L 04/18/20 11:40 04/18/20 11:40 04/18/20 11:40 04/18/20 11:40 04/18/20 11:40 Laboratory Results - last 24 hr 04/17/20 16:23: POC Glucose 158 H 04/17/20 23:32: POC Glucose 128 H 04/18/20 06:41: POC Glucose 131 H 04/18/20 08:35: WBC 6.5, RBC 3.03 L, Hgb 9.4 L, Hct 28.9 L, MCV 95.4, MCH 31.0, MCHC 32.5, RDW 14.8, Plt Count 288 D, MPV 7.9, Neut % (Auto) 66.3, Lymph % (Auto) 22.7, [place] % (Auto) 7.0, Eos % (Auto) 3.5, Baso % (Auto) 0.4, Neut # (Auto) 4.3, Lymph # (Auto) 1.5, [place] # (Auto) 0.5, Eos # (Auto) 0.2, Baso # (Auto) 0.0 04/18/20 08:35: Sodium 136, Potassium 3.5, Chloride 107, Carbon Dioxide 23, Anion Gap 9.5, BUN 6 L D, Creatinine 0.80, Estimated Creat Clear 97, Estimated GFR 73, Est GFR ( Amer) 88, Glucose 101 H, Calcium 8.7 04/18/20 09:40: Vancomycin Trough 10.1 H 04/18/20 11:41: POC Glucose 89 I & O for Last 24 hours: Intake & Output 04/16/20 04/17/20 04/18/20 04/19/20 11:59 11:59 11:59 11:59 Intake Total 610 / 610 2812 / 2812 Output Total 900 / 900 3700 / 3700 Balance -290 / -290 -888 / -888 Weight 222 lb 10.67 oz 230 lb Microbiology Reports for the Last 24 Hours: Microbiology 04/17/20 Unknown Toe,Left Fourth Gram Stain - Final 04/17/20 Unknown Toe,Left Fourth Wound Culture - Preliminary NO GROWTH AFTER 24 HOURS 04/17/20 Unknown Foot,Left Gram Stain - Final 04/17/20 Unknown Foot,Left Wound Culture - Preliminary 04/16/20 22:17 Urine,Clean Catch Urine Culture - Final Klebsiella pneumoniae 04/17/20 12:07 Foot,Left - Abscess Gram Stain - Final - Constitutional no acute distress, obese - *Routine HEENT Exam Head: Present: normocephalic Eye: Present: PERRL ENT: Present: mucous membranes moist - *Routine Neck Exam Present: supple. Absent: lymphadenopathy - *Routine Respiratory Exam Present: CTA bilaterally - *Routine Cardiovascular Exam Present: RRR - *Routine Abdominal Exam Present: soft, normoactive bowel sounds. Absent: tenderness - *Routine Extremities Exam Present: normal capillary refill. Absent: cyanosis, clubbing, edema - *Routine Skin Exam Present: warm, wounds. Absent: rash Comments: dressing to left lower ext c/d/i - *Routine Neurological Exam Present: alert, oriented X3 - Routine Psychiatric Exam Present: normal affect Assessment and Plan (1) Cellulitis Start date: 04/17/20 Status: Acute Category: Medical Code(s): L03.90 - Cellulitis, unspecified (2) Cellulitis and abscess of foot Status: Acute Category: Medical Code(s): L03.119 - Cellulitis of unspecified part of limb; L02.619 - Cutaneous abscess of unspecified foot (3) Cellulitis and abscess of toe of left foot Status: Acute Category: Medical Code(s): L03.032 - Cellulitis of left toe; L02.612 - Cutaneous abscess of left foot (4) Diabetes type 2, controlled Start date: 04/17/20 Status: Acute Qualifiers: Diabetes mellitus custodial insulin use: without terminal supervisor use Diabetes mellitus complication status: with skin complications Diabetes mellitus complication detail: with other skin ulcer Qualified Code(s): E11.622 - Type 2 diabetes mellitus with other skin ulcer Category: Medical Code(s): E11.9 - Type 2 diabetes mellitus without complications (5) Lymphedema Start date: 04/17/20 Status: Acute Category: Medical Code(s): I89.0 - Lymphedema, not elsewhere classified (6) Obesity (BMI 30-39.9) Status: Acute Category: Medical Code(s): E66.9 - Obesity, unspecified - Assessment and plan all Dx Assessment and Plan for all problems:: rounded with dr domingo all orders per dr domingo
[2020-04-18 16:27] LABS: POC Glucose,Bedside 143 (70-110)
--- NOTE | 2020-04-18 19:59 | PC.NURSE ---
PATIENT HAS TAKEN MULTIPLE NAPS THROUGHOUT THIS RN SHIFT. THIS RN HAS INQUIRED ABOUT WHY PATIENT IS SO FATIQUED, PATIENT STATED SHE DID NOT KNOW, JUST THAT SHE IS SO TIRED. THIS RN REMOVED OLD DRESSING FROM LEFT FOOT, SANGUINEOUS DRAINAGE NOTED. THIS RN CLEANED AREA WITH SOAP AND WATER. PACKED INCISION WITH IODOFORM, COVERED WITH BETADINE SOAKED 4X4S, WRAPPED IN KERLIX AND SECURED WITH AN [place] BANDAGE. PATIENT DID NOT REQUIRE ANY PAIN MEDICATIONS. PATIENT TOLERATED DRESSING CHANGE WELL. PATIENT IS A&O X4, LUNGS CLEAR, PULSES EQUAL. PITTING EDEMA IN BLE. PATIENT'S IV INFILTRATED AT TIME OF VANCOMYCIN ADMINISTRATION. THIS RN ALONG WITH 2 OTHER RN'S ATTEMPTED SEVERAL TIMES TO INSERT AN IV, ALL ATTEMPTS WERE UNSUCCESSFUL. THIS RN SPOKE WITH DR. WYNN AND MADE MD AWARE OF NO IV ACCESS. NO NEW ORDERS. THIS RN PHONED GUN STOCKER TO INQUIRE IF KERA RAMÍREZ WOULD BE ABLE TO INSERT IV. HOUSE WAS UNAVAILABLE AT THAT TIME. THIS RN PHONED DOWN TO THE EMERGENCY DEPARTMENT TO INQUIRE IF AN RN WOULD BE ABLE TO ATTEMPT AN IV INSERTION. NO RN'S WERE AVAILABLE. AT SHIFT CHANGE PATIENT DID NOT HAVE IV ACCESS. THIS RN REPORTED TO MANDI HCU RN OF IV ATTEMPTS. NO OTHER CONCERNS AT THIS TIME.
[2020-04-18 20:00] VITALS: BP 149/89; PULSE 85; RESP 18; TEMP 36.7; O2SAT 94
[2020-04-19] VITALS: BP 153/82; PULSE 77; RESP 16; TEMP 36.7; O2SAT 97
[2020-04-19 02:21] LABS: POC Glucose,Bedside 108 (70-110)
--- NOTE | 2020-04-19 02:51 | PC.NURSE ---
Per KERA Lopez patient without IV. Multiple attempts with no success. This nurse tried twice with no success. Dr. Cortez notified and made aware. Will attempt again.
--- NOTE | 2020-04-19 03:25 | PC.NURSE ---
18g placed in Right AC. Vancomycin restarted.
[2020-04-19 04:00] VITALS: BP 144/72; PULSE 76; RESP 16; TEMP 36.6; O2SAT 95
[2020-04-19 05:30] VITALS: BMI 35.5
[2020-04-19 06:11] LABS: POC Glucose,Bedside 104 (70-110)
[2020-04-19 08:00] VITALS: BP 133/89; PULSE 80; RESP 18; TEMP 36.9; O2SAT 97
[2020-04-19 12:00] VITALS: BP 157/76; PULSE 73; RESP 20; TEMP 36.7; O2SAT 97
[2020-04-19 12:07] LABS: POC Glucose,Bedside 97 (70-110)
--- NOTE | 2020-04-19 14:57 | PC.NURSE ---
AM labs were not drawn this morning. Two different people from lab attempted and 2 RNs attempted without success. Mariana Wang ENERGY ASSISTANT rounding and has been notified.
[2020-04-19 16:00] VITALS: BP 157/89; PULSE 72; RESP 16; TEMP 36.6; O2SAT 97
--- NOTE | 2020-04-19 16:51 | HMH.ACPN2 ---
Internal Medicine - PN: Subj *Date: 04/19/20 *Time: 11:45 Interval history: pt laying in bed states no c/o Exam Vital signs and Labs for Last 24 Hours: Temp Pulse Resp BP Pulse Ox 97.9 F 72 16 157/89 H 97 04/19/20 16:00 04/19/20 16:00 04/19/20 16:00 04/19/20 16:00 04/19/20 16:00 Laboratory Results - last 24 hr 04/18/20 22:33: POC Glucose 108 04/19/20 05:48: POC Glucose 104 04/19/20 12:00: POC Glucose 97 I & O for Last 24 hours: Intake & Output 04/17/20 04/18/20 04/19/20 04/20/20 11:59 11:59 11:59 11:59 Intake Total 610 / 610 2812 / 2812 240 / 240 480 / 480 Output Total 900 / 900 3700 / 3700 2500 / 2500 600 / 600 Balance -290 / -290 -888 / -888 -2260 / -2260 -120 / -120 Weight 222 lb 10.67 oz 230 lb 221 lb 4 oz Microbiology Reports for the Last 24 Hours: Microbiology 04/17/20 Unknown Toe,Left Fourth Gram Stain - Final 04/17/20 Unknown Toe,Left Fourth Wound Culture - Preliminary NO GROWTH AFTER 48 HOURS 04/17/20 Unknown Foot,Left Gram Stain - Final 04/17/20 Unknown Foot,Left Wound Culture - Preliminary 04/17/20 12:07 Foot,Left - Abscess Gram Stain - Final 04/17/20 12:07 Foot,Left - Abscess Abscess Culture - Preliminary 04/16/20 17:45 Blood Blood Culture - Preliminary NO GROWTH AFTER 48 HOURS 04/16/20 17:45 Blood Blood Culture - Preliminary NO GROWTH AFTER 48 HOURS - Constitutional no acute distress, obese - *Routine HEENT Exam Head: Present: normocephalic Eye: Present: PERRL ENT: Present: mucous membranes moist - *Routine Neck Exam Present: supple. Absent: lymphadenopathy - *Routine Respiratory Exam Present: CTA bilaterally - *Routine Cardiovascular Exam Present: RRR - *Routine Abdominal Exam Present: soft, normoactive bowel sounds. Absent: tenderness - *Routine Extremities Exam Present: normal capillary refill. Absent: cyanosis, clubbing, edema Comments: dressing c/d/i - *Routine Skin Exam Present: warm, wounds. Absent: rash Comments: drg c/d/i - *Routine Neurological Exam Present: alert, oriented X3 Assessment and Plan (1) Cellulitis Start date: 04/17/20 Status: Acute Category: Medical Code(s): L03.90 - Cellulitis, unspecified (2) Cellulitis and abscess of foot Status: Acute Category: Medical Code(s): L03.119 - Cellulitis of unspecified part of limb; L02.619 - Cutaneous abscess of unspecified foot (3) Cellulitis and abscess of toe of left foot Status: Acute Category: Medical Code(s): L03.032 - Cellulitis of left toe; L02.612 - Cutaneous abscess of left foot (4) Diabetes type 2, controlled Start date: 04/17/20 Status: Acute Qualifiers: Diabetes mellitus salvage determiner insulin use: without salvage determiner use Diabetes mellitus complication status: with skin complications Diabetes mellitus complication detail: with other skin ulcer Qualified Code(s): E11.622 - Type 2 diabetes mellitus with other skin ulcer Category: Medical Code(s): E11.9 - Type 2 diabetes mellitus without complications (5) Diabetic foot Start date: 04/17/20 Status: Acute Category: Medical Code(s): E11.8 - Type 2 diabetes mellitus with unspecified complications (6) Edema of left foot Status: Acute Category: Medical Code(s): R60.0 - Localized edema (7) Edema of lower extremity Start date: 04/17/20 Status: Acute Category: Medical Code(s): R60.0 - Localized edema (8) Obesity (BMI 30-39.9) Status: Acute Category: Medical Code(s): E66.9 - Obesity, unspecified (9) Skin ulcer of fourth toe of left foot, limited to breakdown of skin Start date: 04/17/20 Status: Acute Category: Medical Code(s): L97.521 - Non-pressure chronic ulcer of other part of left foot limited to breakdown of skin (10) Skin ulcer of left foot, limited to breakdown of skin Start date: 04/17/20 Status: Acute
[2020-04-19 17:01] LABS: POC Glucose,Bedside 136 (70-110)
--- NOTE | 2020-04-19 18:34 | PC.NURSE ---
pt has been stable this shift. No issues noted. FSBS WNL. Lungs clear.
[2020-04-19 20:15] VITALS: BP 170/90; PULSE 87; RESP 16; TEMP 36.4; O2SAT 100
[2020-04-19 20:53] LABS: POC Glucose,Bedside 103 (70-110)
--- NOTE | 2020-04-19 22:47 | PC.NURSE ---
Dressing changed per MD order. Patient tolerated well.
[2020-04-20] VITALS: BP 145/90
--- NOTE | 2020-04-20 03:23 | PC.NURSE ---
Patient has been very sleeping this shift. Alert and oriented x4. Lungs clear on room air. Heart tones distant. BLE edema. Assist x1 to BSC. Has voided several times this shift and did have a BM. Dressing changed to Left foot using Idofor packing and 4x4 soaked in betadine between toes. Tolerated well without pain. No drainage noted. BP 170/90 manual at the start of the shift. Paged DR Cortez orders given to start back atenolol 50 mg daily and benzapril 10 mg daily. After meds BP 145/90. Bed alarm on and call light within reach.
[2020-04-20 04:00] VITALS: BP 160/84; PULSE 66; RESP 15; TEMP 36.7; O2SAT 96
[2020-04-20 05:10] LABS: POC Glucose,Bedside 109 (70-110)
[2020-04-20 05:20] VITALS: BMI 35.5
[2020-04-20 06:58] LABS: Basophils % 0.7 % (0.1-2.0); Eosinophils # 0.2 K/mm3 (0.0-0.4); Hematocrit 32.4 % (37.0-47.0); Hemoglobin 10.6 g/dL (12.2-16.2); Lymphocytes # 1.6 K/mm3 (0.7-4.5); Lymphocytes % 27.5 % (10-50); Mean Corpuscular HGB Conc 32.8 g/dL (31.8-35.4); Mean Corpuscular Hemoglobin 30.8 pg (27.0-31.2); Mean Corpuscular Volume 94.1 fl (81-99); Mean Platelet Volume 8.3 fl (7.4-10.4); Monocytes # 0.4 K/mm3 (0.1-1.0); Monocytes % 6.8 % (1.7-9.3); Neutrophils # 3.7 K/mm3 (1.8-7.8); Platelet Count 387 K/mm3 (142-424); Red Blood Count 3.44 M/mm3 (4.20-5.40); White Blood Count 5.9 K/mm3 (4.8-10.8)
[2020-04-20 07:00] LABS: Chloride 112 mmol/L (98-107); Potassium 3.7 mmoL/L (3.5-5.1); Sodium 141 mmol/L (136-145)
[2020-04-20 07:03] LABS: Anion Gap 12.7 mEq/L (5-15); Blood Urea Nitrogen 6 mg/dl (7-17); Carbon Dioxide 20 mmol/L (22.0-30.0); Creatinine Clearance Estimated 94 mL/min (50-200); Estimated Glomerular Filt Rate 85 ml/min (>60); GFR (African American) 103 ML/MIN (>60); Glucose 84 mg/dl (74-100)
[2020-04-20 08:00] VITALS: BP 158/73; PULSE 62; RESP 16; TEMP 36.9; O2SAT 95; O2SAT 97
--- NOTE | 2020-04-20 08:16 | HMH.ORTHPN ---
Subjective Date: 04/20/20 Time: 07:40 Principal diagnosis: Left foot cellulitis Interval history: Patient is resting comfortably. She denies foot pain. She reports some nausea. Denies vomiting, F/C, SOB/CP. PN: Obj Ex Vital signs: Temp Pulse Resp BP Pulse Ox 98.4 F 62 16 158/73 H 95 04/20/20 08:00 04/20/20 08:00 04/20/20 08:00 04/20/20 08:00 04/20/20 08:00 - Constitutional no acute distress, obese - Routine HEENT Exam Head: Present: normocephalic Eye: Present: EOMI ENT: Present: mucous membranes moist - Routine Neck Exam Present: supple - Routine Respiratory Exam Absent: respiratory distress - Routine Cardiovascular Exam Present: RRR - Routine Abdominal Exam Present: soft, obese - Routine Extremities Exam Present: edema, pulses intact. Absent: amputation - Detailed Lower Extremity Exam Top foot image: 1 - Toe ulcers are improved. Smaller in size and superficial, thru skin not full thickness. There is no SOI to toes. The LLE overall has less edema and erythema. There yuan sutures clean dry and intact to the left plantar medial arch and medial ankle. There is an opening to the left plantar medial arch tissue, 0.2x0.2x0.5cm packing inserted. There is opening to plantar foot, 0.2x0.2x0.6cm packing inserted. No purulence, drainage or malodor noted. Comments: Left third has 2 areas on the top and medial side. Left third top; measures 0.4 x 0.6 x 0.0 cm, left third medial side measuring 1.2 x 1.0 x 0.0 cm. Left fourth top measuring 0.5 x 0.6 x 0.0 cm, left fifth measuring 1.0 x 0.9 x 0 cm. Left hallux medial side callus from extensive keratosis that is cracked, 0.5 x 0.1 x 0.0 cm. No new SOI. - Routine Skin Exam Present: erythema, dry, wounds - Routine Neurological Exam Present: alert Progress Note: A&P (1) Cellulitis Status: Acute (2) Cellulitis and abscess of foot Status: Acute (3) Cellulitis and abscess of toe of left foot Status: Acute (4) Diabetes type 2, controlled Status: Acute (5) Diabetic foot Status: Acute (6) Edema of left foot Status: Acute (7) Edema of lower extremity Status: Acute (8) Obesity (BMI 30-39.9) Status: Acute (9) Skin ulcer of fourth toe of left foot, limited to breakdown of skin Status: Acute (10) Skin ulcer of left foot, limited to breakdown of skin Status: Acute (11) Skin ulcer of third toe of left foot, limited to breakdown of skin Status: Acute Assessment and Plan for All Diagnoses:: Sx: 04/17/20, s/p left foot incision and drainage: 04/17/20, wound culture left foot: NG x 48 hours 04/16/20, blood cultures: NG Overall left lower extremity has less edema and erythema. Wounds were flushed with saline. There was no evidence of deep purulence, drainage or malodor. Iodoform packing was inserted into the plantar and medial plantar arch openings. Betadine soaked 4 x 4 weaved through the toes covering the superficial 2-5th toes ulcers. Overall the foot is healing well. At this point infection markers likely more related to the urine than the foot. Plan: Maintain dressing clean dry and intact to left foot, reinforce as necessary. Daily dressing changes: cleanse foot. Dry. Apply iodophor 1/2 or betadine soaked packing to opening in medial arch and plantar left foot. Then apply betadine soaked 4x4s to toe ulcers, followed by a dry sterile dressing (4x4, kerlix, Joselito). PWB to left foot in post op shoe with walker. Recommend wound care and lymphedema clinic. Continue antibiotics per PCP team. Stable from Podiatry stand-point. If she goes to SNF, dressing change orders as above.
--- NOTE | 2020-04-20 09:59 | SW/DCPLANNER ---
Addendum entered by [facility] 04/20/20 16:17: I have arranged [employer] for this patient. Addendum entered by [facility] 04/20/20 15:11: [facility] services will begin tomorrow. Walker has been delivered from [place]. Teresa from [facility] is delivering post op shoe. Once COVID results are back I will fax to Monica at [place] and set up [employer]. Addendum entered by [facility] 04/20/20 13:49: Joanna with [facility] has stated that patient information/order has been received and reviewed. Services will begin tomorrow for this patient. I have informed Mello at [facility]. I have also ordered a rolling walker and currently waiting for COVID swabs. Mello concurs with this plan. I will set up [employer] once patients COVID is back. Addendum entered by [facility] 04/20/20 13:06: This patient will require dressing changes to foot (refer to Dr Chacon note) twice a week. Patient information has been faxed to [facility] ([facility], [employer], [facility] can NOT take this insurance). I will follow up with [facility] once reviewed. Addendum entered by [facility] 04/20/20 11:35: PT has evaluated this patient and stated that she can return to [facility]. I have spoke with Monica at [facility] [place] and she has stated a re-evaluation is not necessary for this patient, patient can return after a NEGATIVE COVID swab. COVID swab will be ordered. I have also ordered a rolling walker for this patient. Teresa in Dr Chacon office will deliver post op shoe to this patients room today. Patient will discharge later today and I will set up with [employer] transportation. Original Note: Patient currently resides at [facility]. Patient could require placement at time of discharge pending PT/OT evaluation. Patient information has been faxed to Nyla at [facility]. I will follow up with Nyla once patient information is reviewed and PT/OT evaluation is completed.
--- NOTE | 2020-04-20 10:05 | DIET.NUTRFU ---
PO intakes 75-100%, weight stable, BG WNL-150. Protein shake qid added to diet order, pt with skin breakdown. Continuing to monitor.
--- NOTE | 2020-04-20 11:19 | PC.NURSE ---
1030 - Report given to Oswaldo Campos RN @ this time
--- NOTE | 2020-04-20 11:20 | HMH.ACPN ---
Internal Medicine - PN: Subj *Date: 04/20/20 *Time: 11:20 Exam Vital signs and Labs for Last 24 Hours: Temp Pulse Resp BP Pulse Ox 98.4 F 62 16 158/73 H 97 04/20/20 08:00 04/20/20 08:00 04/20/20 08:00 04/20/20 08:00 04/20/20 08:00 Laboratory Results - last 24 hr 04/19/20 12:00: POC Glucose 97 04/19/20 16:52: POC Glucose 136 H 04/19/20 20:43: POC Glucose 103 04/20/20 05:02: POC Glucose 109 04/20/20 05:50: WBC 5.9, RBC 3.44 L, Hgb 10.6 L, Hct 32.4 L, MCV 94.1, MCH 30.8, MCHC 32.8, RDW 14.0, Plt Count 387 D, MPV 8.3, Neut % (Auto) 62.0, Lymph % (Auto) 27.5, Atlantic % (Auto) 6.8, Eos % (Auto) 3.0, Baso % (Auto) 0.7, Neut # (Auto) 3.7, Lymph # (Auto) 1.6, Atlantic # (Auto) 0.4, Eos # (Auto) 0.2, Baso # (Auto) 0.0 04/20/20 05:50: Sodium 141, Potassium 3.7, Chloride 112 H, Carbon Dioxide 20 L, Anion Gap 12.7, BUN 6 L, Creatinine 0.70, Estimated Creat Clear 94, Estimated GFR 85, Est GFR ( Amer) 103, Glucose 84, Calcium 9.0 I & O for Last 24 hours: Intake & Output 04/17/20 04/18/20 04/19/20 04/20/20 23:59 23:59 23:59 23:59 Intake Total 3302 / 3302 120 / 120 1976 / 2276 905 / 905 Output Total 1900 / 1900 3700 / 4700 2099 / 2100 Balance 1402 / 1402 -3580 / -4580 -124 / 176 905 / 905 Weight 101 kg 104.326 kg 100.357 kg 100.329 kg Microbiology Reports for the Last 24 Hours: Microbiology 04/17/20 12:07 Foot,Left - Abscess Gram Stain - Final 04/17/20 12:07 Foot,Left - Abscess Abscess Culture - Preliminary 04/17/20 Unknown Foot,Left Gram Stain - Final 04/17/20 Unknown Foot,Left Wound Culture - Preliminary 04/17/20 Unknown Toe,Left Fourth Gram Stain - Final 04/17/20 Unknown Toe,Left Fourth Wound Culture - Preliminary NO GROWTH AFTER 48 HOURS Assessment and Plan (1) Cellulitis Start date: 04/17/20 Status: Acute Category: Medical Code(s): L03.90 - Cellulitis, unspecified (2) Cellulitis and abscess of foot Status: Acute Category: Medical Code(s): L03.119 - Cellulitis of unspecified part of limb; L02.619 - Cutaneous abscess of unspecified foot (3) Cellulitis and abscess of toe of left foot Status: Acute Category: Medical Code(s): L03.032 - Cellulitis of left toe; L02.612 - Cutaneous abscess of left foot (4) Diabetes type 2, controlled Start date: 04/17/20 Status: Acute Qualifiers: Diabetes mellitus half-way insulin use: without half-way use Diabetes mellitus complication status: with skin complications Diabetes mellitus complication detail: with other skin ulcer Qualified Code(s): E11.622 - Type 2 diabetes mellitus with other skin ulcer Category: Medical Code(s): E11.9 - Type 2 diabetes mellitus without complications (5) Diabetic foot Start date: 04/17/20 Status: Acute Category: Medical Code(s): E11.8 - Type 2 diabetes mellitus with unspecified complications (6) Edema of left foot Status: Acute Category: Medical Code(s): R60.0 - Localized edema (7) Edema of lower extremity Start date: 04/17/20 Status: Acute Category: Medical Code(s): R60.0 - Localized edema (8) Obesity (BMI 30-39.9) Status: Acute Category: Medical Code(s): E66.9 - Obesity, unspecified (9) Skin ulcer of fourth toe of left foot, limited to breakdown of skin Start date: 04/17/20 Status: Acute Category: Medical Code(s): L97.521 - Non-pressure chronic ulcer of other part of left foot limited to breakdown of skin (10) Skin ulcer of left foot, limited to breakdown of skin Start date: 04/17/20 Status: Acute Category: Medical Code(s): L97.521 - Non-pressure chronic ulcer of other part of left foot limited to breakdown of skin (11) Skin ulcer of third toe of left foot, limited to breakdown of skin Start date: 04/17/20 Status: Acute Category: Medical Code(s): L97.521 - Non-pressure chronic ulcer of other part of left foot limited to breakdown of skin The patient's infection will
[2020-04-20 11:22] LABS: POC Glucose,Bedside 90 (70-110)
--- NOTE | 2020-04-20 12:01 | HMH.DCSUM ---
General - General Admission date:: 04/17/20 Discharge date: 04/20/20 HPI HPI: 60 year old female that is a resident at [facility]. Brought in by ambulance from [facility]. She complains of pain in her left foot and ankle. She says that she lost her footing and fell, she thinks 2 or 3 days ago. She is not sure exactly what happened to her left foot and ankle, but states that she now has pain in her foot, in particular her heel and is unable to bear weight due to pain. She has lymphedema and says her left lower extremity is typically much larger than her right. She denies fever. Patient has 3-4+ edema to the left lower extremity, 2+ edema to the right lower extremity and feet. Patient does have some blood blisters noted to her left third fourth and fifth toes. They are purplish in color patient also has some bruising what appears to be on the lateral fifth side of foot. Pt admitted and podiatry consult placed. Hospital Course Hospital Course: pt was admitted and started on abx - she was seen by podiatry-SBrenda Johanny is a 60 year old female that is a resident at [facility]. Patient resting comfortably in the bed this morning she is alert and responds appropriately to my questions. Patient does tend to drift back off to sleep, the nurse reports that she did not get much sleep at all last night and was up most of the night with her new admission and is now trying to rest. Patient has been n.p.o. after midnight for our podiatry consult. Patient has 3-4+ edema to the left lower extremity, 2+ edema to the right lower extremity and feet. Patient does have some blood blisters noted to her left third fourth and fifth toes. They are purplish in color patient also has some bruising what appears to be on the lateral fifth side of foot. Toes are very edematous look like little sausages unable to palpate pedal pulses due to the extreme edema. Nails are very long and dystrophic x10 nail fungus noted to bilateral hallux nails. The anterior part of the lower leg rodriguez and feet is where the erythema starts, there is some mild warmth noted to palpation as well. The left hallux has very dry keratosis skin noted to the medial side of the hallux that is cracked open and callused. We will plan to clean up the blisters as well as do a nail trim at the bedside today. y in ulcer of toes of left foot, 2nd, 3rd, 4th and 5th The blood blisters were drained and there were serous drainage small amounts expressed when the areas were deroofed and cleaned. We did obtain a wound culture of the drainage from the left fourth top of toe. The bottom of the left foot is a palpable nodule that patient does grimace when palpated. On the medial side of the foot and arch is more extensive redness and little purpura noted in the arch extending under the foot to the lateral side of the heel. The area was cleaned with Hibiclens as well as Betadine to the left plantar surface middle foot Dr. Qureshi spoke with the patient and let her know that there was an area that was of concern and she wanted to debride and clean it up patient verbalized permission to do so at the bedside. Dr. Qureshi did attempt to use a #11 blade to very superficially insert into the nodule to express any fluid so we could culture there was small amount of blood noted, Dr. Qureshi did use sterile hemostats to try to explore the area but the patient expressed too much discomfor, pain and stated she could not tolerate it and wanted medication before we proceeded any further. She then consented for Dr. Qureshi to take her to the OR under some anesthesia to do a I&D (incision and drainage) of the area to clean it out and explore the site to see what might be causing all the extensive pain and cellulitis. to the area. The foot and area of I&D is marked and dated for procedure. 1. Blood blisters was noted to the toes third fourth and fifth were deroofed cleaned and measured. 2. Wound culture obtained f
--- NOTE | 2020-04-20 12:16 | PC.NURSE ---
pt will need a rolling walker r/y mobility and gait issues
--- NOTE | 2020-04-20 13:12 | PC.NURSE ---
pt will need a rolling walker rather than a cane due to gait and mobility issues.
[2020-04-20 13:14] LABS: Adenovirus,PCR Not Detected (NotDetected); Bordetella Pertussis Not Detected (NotDetected); Chlamydophila Pneumoniae, PCR Not Detected (NotDetected); Coronavirus 19, PCR Not Detected (NotDetected); Coronavirus 229E Not Detected (NotDetected); Coronavirus NL63 Not Detected (NotDetected); Coronavirus OC43 Not Detected (NotDetected); Coronovirus HKU1,PCR Not Detected (NotDetected); Human Metapneumovirus Not Detected (NotDetected); Influenza A, PCR Not Detected (NotDetected); Influenza AH1, 2009 Not Detected (NotDetected); Influenza AH1, PCR Not Detected (NotDetected); Influenza AH3,PCR Not Detected (NotDetected); Influenza B, PCR Not Detected (NotDetected); Mycoplasma Pneumoniae, PCR Not Detected (NotDetected); Parainfluenza 1, PCR Not Detected (NotDetected); Parainfluenza 2, PCR Not Detected (NotDetected); Parainfluenza 3, PCR Not Detected (NotDetected); Parainfluenza 4, PCR Not Detected (NotDetected); Respiratory Syncytial Virus Not Detected (NotDetected); Rhinovirus/Enterovirus Not Detected (NotDetected)
--- NOTE | 2020-04-20 13:43 | HMH.OTEV ---
OT Inpatient Evaluation Rehab OT IP Evaluation Start: 04/20/20 10:12 Freq: ONCE Status: Complete Protocol: Document 04/20/20 13:40 SALBADOR (Rec: 04/20/20 13:43 [id number] Rehab OT IP Assessment Subjective History Pt oriented x 2 on arrival. Pt agreeable to engage in therapy evaluation. Pt was admitted via ED on 04/16/20 due to Left foot pain and dx with cellulitis. Pt reports prior to her admission she lived at [facility]. She claims she was independent with all ADL's. However, she was dependent upon staff to complete IADL's. Pt did not require AE to complete ambulation. Subjective I think I'm better. Objective Patient Orientation Person,Birthday Upper Extremity Gross ROM WFL Assist Level Supervision/Stand by Transfer Training Sit/Stand Transfer Assist Level Contact Guard/Hand Hold Lower Body Dressing Ability Assistance X1 Rehab OT IP prob,goals,plan Problems Date of Evaluation: 04/20/20 Rehab Potential Rehab Potential Innapropriate for Skilled Therapy Discharge Plan OT Discharge Plan Pt is safe to return back to assisted living once medically stable. Eval Complexity Eval Charge Codes 03862 - Low Complexity G Codes G -code Required No PHYSICIAN CERTIFICATION: I certify the specified therapy services for Johanny Molina are required, authorized, and reviewed every 30 days.
[2020-04-20 16:00] VITALS: BP 135/60; PULSE 78; RESP 18; TEMP 36.7; O2SAT 98
== END 2020-04-20 16:15 | disposition home or self-care (01) | DRG 603 ==
LOC: ER 22:08 → 2ND 22:21
PROVIDERS: Nurse Practitioner Family; Podiatrist; Admitting Provider Emergency Medicine; Emergency Provider Emergency Medicine; PCP Emergency Medicine; Visit Provider Emergency Medicine
PROC: 0H9NXZX Drainage of Left Foot Skin, External Approach, Diagnostic (ICD-10-PCS; CPT 10061; principal; 2020-04-17 10:30)
DX: L02.612 Cutaneous abscess of left foot (principal); N39.0 Urinary tract infection, site not specified; L97.521 Non-pressure chronic ulcer of other part of left foot limited to breakdown of skin; L03.032 Cellulitis of left toe; L57.0 Actinic keratosis; L60.3 Nail dystrophy; B35.1 Tinea unguium; E11.9 Type 2 diabetes mellitus without complications; I10 Essential (primary) hypertension; B96.1 Klebsiella pneumoniae [K. pneumoniae] as the cause of diseases classified elsewhere; M71.20 Synovial cyst of popliteal space [Baker], unspecified knee; Z79.51 Long term (current) use of inhaled steroids; Z79.899 Other long term (current) drug therapy; Z88.8 Allergy status to other drugs, medicaments and biological substances; Z88.1 Allergy status to other antibiotic agents
CPT/HCPCS: 10061; 11719; 36415; 73610; 73630; 73701; 80048; 80202; 81001; 82962; 83036; 83605; 83735; 84145; 85025; 85378; 85651; 86140; 86328; 87040; 87070; 87075; 87077; 87086; 87088; 87186; 87205; 87581; 87633; 87798; 93005; 93970; 96365; 97161; 97165; 99284; J1335; J1956; J3370; Q9967; U0003

== ENCOUNTER 2020-04-27 09:00 | Outpatient (RCR) | payer MEDICARE, MEDICAID, SELFPAY | END 2020-04-27 09:05 | disposition home or self-care (01) | LOC: PT 09:00 | PROVIDERS: PCP Emergency Medicine; Visit Provider Podiatrist | DX: M79.672 Pain in left foot (principal); R60.0 Localized edema; L02.612 Cutaneous abscess of left foot; L97.521 Non-pressure chronic ulcer of other part of left foot limited to breakdown of skin | CPT/HCPCS: 97162; 97597; 97598 ==

== ENCOUNTER 2020-06-17 10:22 | Outpatient (RCR) | payer MEDICARE, MEDICAID, SELFPAY ==
--- NOTE | 2020-06-17 10:55 | HMH.PTOPWND ---
Rehab Outpt Wound Evaluation Rehab OP Wound Evaluation Start: 06/17/20 10:27 Freq: Status: Active Protocol: Document 06/17/20 10:44 CHELSEA (Rec: 06/17/20 10:55 CHELSEA [id number]) Electronically Signed By Sawyer West, PT 06/17/20 10:44 Subjective/History History History Pt is 60 yowf who presents with c/o B LE edema, L > R, for my whole life. She had recent I&D of L foot due to cellulitis with possible abcess and has hx of L TKA. She reports constant pain and has an implanted pain pump managed by pain management somewhere in [place], [place]. She reports no c/o palpation tenderness this date. She has obvious primary lymphedema of the L LE with collateral edema of the R LE. Subjective Subjective Pt c/o 10/10 pain constantly. Lymphedema Eval Classification of Lymphedema Primary Lymphedema Yes: L LE Stemmer's sign Stemmer's Sign yes Stage of Lymphedema Lymphedema stages Stage III (Non-pitting, fibrosis and sclerosis, skin changes) Skin Changes Dry Skin Yes Taut, Shiny Skin Yes Skin Folds Yes Hyperkeratosis Yes Redness Yes Discoloration of Skin Yes Other Changes Yes Pain Scale Pain Scale (0-10) 10 Affected Extremities Areas Affected by Lymphedema/Edema Right Lower Extremity,Left Lower Extremity Manual Lymphatic Drainage Treatment Area MLD Treatment Area Right Lower Extremity,Left Lower Extremity Wound Problems/Impairments Impairments Problems/Impairmments Impaired Range of Motion, Impaired Strength,Impaired Endurance,Impaired Transfers, Impaired Gait Pattern,Impaired Walking,Impaired Standing, Impaired Recreational Activities,Increased Edema, Lymphedema Present,Subjective C/O Pain,Impaired Self Care/ Self Management Prognosis Rehab Potential Good Clinical Impression Consistent with Diagnosis Yes Short Term Goals Number of Weeks
== END 2020-06-17 10:25 | disposition home or self-care (01) ==
LOC: PT 10:22
PROVIDERS: PCP Emergency Medicine; Visit Provider Nurse Practitioner
DX: I89.0 Lymphedema, not elsewhere classified (principal)
CPT/HCPCS: 97162

== ENCOUNTER 2020-08-11 14:39 | Emergency (ER) | payer MEDICARE, MEDICAID, SELFPAY ==
--- NOTE | 2020-08-11 14:55 | HMH.EDFALL ---
ED Disposition Clinical Impression: Hypertension Qualifiers: Hypertension type: essential hypertension Qualified Code(s): I10 - Essential (primary) hypertension Disposition: Home, Self-Care Condition on Discharge: Good Instructions: How to Prevent Falls, Treatments for High Blood Pressure: More Than Just Taking a Pill Referrals: Casimiro Barraza MD [Primary Care Provider] - - Critical Care Critical Care Time: No Attestation: On 08/11/20, the high probability of a clinically significant, sudden or life threatening deterioration of the following system(s) required my full and direct attention, intervention and personal management. The time I documented below is in addition to time spent performing reported procedures but includes the following listed in this critical care notation. Medical Decision Making - Addison Inquiry Pt receiving controlled substance: No Vital Signs: 08/11/20 14:56 08/11/20 15:00 08/11/20 15:02 Temperature 97.8 F Temperature Source Oral Pulse Rate 72 75 Pulse Rate [Right Brachial] 74 Respiratory Rate 18 20 18 Blood Pressure 180/89 H 142/77 H Blood Pressure [Right Arm] 204/104 H Blood Pressure Mean [Right Arm] 137 Blood Pressure Source Automatic Cuff Blood Pressure Source [Right Arm] Automatic Cuff Blood Pressure Position Supine Blood Pressure Position [Right Arm] Sitting 02 Sat by Pulse Oximetry 96 96 99 Oxygen Delivery Method Room Air Room Air Room Air 08/11/20 15:15 08/11/20 15:30 Temperature Temperature Source Pulse Rate 77 74 Pulse Rate [Right Brachial] Respiratory Rate 20 18 Blood Pressure 159/83 H 142/77 H Blood Pressure [Right Arm] Blood Pressure Mean [Right Arm] Blood Pressure Source Automatic Cuff Automatic Cuff Blood Pressure Source [Right Arm] Blood Pressure Position Supine Supine Blood Pressure Position [Right Arm] 02 Sat by Pulse Oximetry 97 90 L Oxygen Delivery Method Room Air Room Air - Lab Data Lab Results 08/11/20 15:00: WBC 6.8, RBC 3.56 L, Hgb 11.3 L, Hct 34.5 L, MCV 96.9, MCH 31.6 H, MCHC 32.6, RDW 14.1, Plt Count 289, MPV 7.1 L, Neut % (Auto) 57.5, Lymph % (Auto) 30.6, [place] % (Auto) 6.2, Eos % (Auto) 5.1, Baso % (Auto) 0.6, Neut # (Auto) 3.9, Lymph # (Auto) 2.1, [place] # (Auto) 0.4, Eos # (Auto) 0.3, Baso # (Auto) 0.0 08/11/20 15:00: Sodium 136, Potassium 3.7, Chloride 99, Carbon Dioxide 28, Anion Gap 12.7, BUN 12, Creatinine 0.90, Estimated Creat Clear 104, Estimated GFR 64, Est GFR ( Amer) 77, Glucose 91, Calcium 9.6, Total Bilirubin 0.4, AST 18, ALT 11 L, Alkaline Phosphatase 103, Total Protein 7.2, Albumin 4.4, Globulin 2.8, Albumin/Globulin Ratio 1.6 Result diagrams: 08/11/20 15:00 08/11/20 15:00 Orders (Tests/Meds): ED MEDICATIONS Discontinued Medications Generic Name Dose Route Start Last Admin Trade Name Freq PRN Reason Stop Dose Admin Acetaminophen 500 mg 08/11/20 15:42 08/11/20 15:44 Acetaminophen 500mg Tab PO 08/11/20 15:43 Not Given ONCE ONE Acetaminophen 650 mg 08/11/20 15:42 08/11/20 15:45 Acetaminophen 325mg Tab PO 08/11/20 15:43 650 mg ONCE ONE Administration Medical Decision Narrative: The patient presented to the emergency department, planing of having fallen asleep in a chair at a local [employer] restaurant. She denies any injuries. She states that she is usually hypertensive but has been off antihypertensive medications for a few weeks now. She would like to start on medication again. The patient was significantly hypertensive upon arrival in the emergency department. However this hypertension improved significantly without any intervention. She is only mildly hypertensive at this time. The patient's blood work did not show any acute or life-threatening disease. Patient is mildly anemic. Her anemia is not significant enough to require further work-up in the emergency department today. The patient will be discharged in stable condition. She will be p
[2020-08-11 14:56] VITALS: BP 204/104; PULSE 74; RESP 18; TEMP 36.6; O2SAT 96; BMI 39.5
[2020-08-11 15:00] VITALS: BP 180/89; PULSE 72; RESP 20; O2SAT 96
[2020-08-11 15:02] VITALS: BP 142/77; PULSE 75; RESP 18; O2SAT 99
[2020-08-11 15:15] VITALS: BP 159/83; PULSE 77; RESP 20; O2SAT 97
[2020-08-11 15:30] VITALS: BP 142/77; PULSE 74; RESP 18; O2SAT 90
[2020-08-11 15:48] LABS: Basophils % 0.6 % (0.1-2.0); Eosinophils # 0.3 K/mm3 (0.0-0.4); Eosinophils % 5.1 % (0.1-12.0); Hematocrit 34.5 % (37.0-47.0); Hemoglobin 11.3 g/dL (12.2-16.2); Lymphocytes # 2.1 K/mm3 (0.7-4.5); Lymphocytes % 30.6 % (10-50); Mean Corpuscular HGB Conc 32.6 g/dL (31.8-35.4); Mean Corpuscular Hemoglobin 31.6 pg (27.0-31.2); Mean Corpuscular Volume 96.9 fl (81-99); Mean Platelet Volume 7.1 fl (7.4-10.4); Monocytes # 0.4 K/mm3 (0.1-1.0); Monocytes % 6.2 % (1.7-9.3); Neutrophils # 3.9 K/mm3 (1.8-7.8); Neutrophils % 57.5 % (37.0-80.0); Platelet Count 289 K/mm3 (142-424); Red Blood Count 3.56 M/mm3 (4.20-5.40); Red Cell Distribution Width 14.1 % (11.5-17.5); White Blood Count 6.8 K/mm3 (4.8-10.8)
[2020-08-11 15:58] LABS: Chloride 99 mmol/L (98-107); Potassium 3.7 mmoL/L (3.5-5.1); Sodium 136 mmol/L (136-145)
[2020-08-11 16:00] LABS: Alanine Aminotransferase 11 U/L (12-78); Aspartate Amino Transferase 18 U/L (14-36); Blood Urea Nitrogen 12 mg/dl (7-17); Creatinine Clearance Estimated 104 mL/min (50-200); Estimated Glomerular Filt Rate 64 ml/min (>60); GFR (African American) 77 ML/MIN (>60)
[2020-08-11 16:01] LABS: Albumin Level 4.4 g/dl (3.5-5.0); Albumin/Globulin Ratio 1.6 (1.1-1.8); Alkaline Phosphatase 103 U/L (38-126); Anion Gap 12.7 mEq/L (5-15); Bilirubin,Total 0.4 mg/dl (0.2-1.3); Calcium 9.6 mg/dl (8.4-10.2); Carbon Dioxide 28 mmol/L (22.0-30.0); Globulin 2.8 g/dL (1.3-3.2); Glucose 91 mg/dl (74-100); Total Protein,Serum 7.2 g/dl (6.3-8.2)
--- NOTE | 2020-08-11 16:24 | PC.NURSE ---
jacquelyn called for pt transport.
[2020-08-11 16:41] VITALS: BP 169/76; PULSE 74; RESP 18; TEMP 36.6; O2SAT 97
== END 2020-08-11 16:48 | disposition home or self-care (01) ==
PROVIDERS: Emergency Provider Emergency Medicine; PCP Emergency Medicine
DX: I16.0 Hypertensive urgency (principal); W07.XXXA Fall from chair, initial encounter; Y92.89 Other specified places as the place of occurrence of the external cause; D64.9 Anemia, unspecified; E11.9 Type 2 diabetes mellitus without complications; Z88.1 Allergy status to other antibiotic agents; Z88.8 Allergy status to other drugs, medicaments and biological substances; Z79.899 Other long term (current) drug therapy
CPT/HCPCS: 80053; 85025; 99282

== ENCOUNTER 2020-10-11 09:25 | Observation (INO) | payer MEDICARE, MEDICAID, SELFPAY ==
[2020-10-11] VITALS (9 sets, daily range): BP systolic 101–169; BP diastolic 55–88; PULSE 53–72; RESP 16–18; TEMP 36.1–36.9; O2SAT 94–99; BMI 40.3; BMI 39.9
--- NOTE | 2020-10-11 09:28 | CT_ITS ---
PROCEDURE INFORMATION: Exam: CT Head Without Contrast Exam date and time: 10/11/2020 9:28 AM Age: 60 years old Clinical indication: Injury or trauma; Fall; Blunt trauma (contusions or hematomas); Additional info: Fall, loc TECHNIQUE: Imaging protocol: Computed tomography of the head without contrast. 3D rendering (Not supervised by radiologist): MIP and/or 3D reconstructed images were created by the technologist. Radiation optimization: All CT scans at this facility use at least one of these dose optimization techniques: automated exposure control; mA and/or kV adjustment per patient size (includes targeted exams where dose is matched to clinical indication); or iterative reconstruction. COMPARISON: No relevant prior studies available. FINDINGS: Brain: Normal. No hemorrhage. Unremarkable white matter. No mass effect. Cerebral ventricles: No ventriculomegaly. Paranasal sinuses: Visualized sinuses are unremarkable. No fluid levels. Mastoid air cells: Visualized mastoid air cells are well aerated. Bones/joints: Unremarkable. No acute fracture. Soft tissues: Unremarkable. IMPRESSION: No acute intracranial abnormality.
--- NOTE | 2020-10-11 09:28 | CT_ITS ---
PROCEDURE INFORMATION: Exam: CT Cervical Spine Without Contrast Exam date and time: 10/11/2020 9:28 AM Age: 60 years old Clinical indication: Injury or trauma; Fall; Blunt trauma TECHNIQUE: Imaging protocol: Computed tomography images of the cervical spine without contrast. Radiation optimization: All CT scans at this facility use at least one of these dose optimization techniques: automated exposure control; mA and/or kV adjustment per patient size (includes targeted exams where dose is matched to clinical indication); or iterative reconstruction. COMPARISON: No relevant prior studies available. FINDINGS: Bones/joints: No acute fracture of the cervical spine. No subluxation or dislocation of the cervical spine. Anterior osteophyte formation C5 through C7 Degenerative changes in the facets at multiple levels Discs/Spinal canal/Neural foramina: Intervertebral disc space narrowing C5 through C7 may represent degenerative disc disease.. Posterior osteophyte formation C5 through C7 Degenerative changes at C1/C2 Thyroid: The thyroid is heterogeneous Lungs: Interstitial densities in the apices of the lungs may represent chronic lung changes or contusions. Soft tissues: Unremarkable. IMPRESSION: 1. No acute fracture of the cervical spine. 2. No subluxation or dislocation of the cervical spine. 3. Intervertebral disc space narrowing C5 through C7 may represent degenerative disc disease.. 4. Interstitial densities in the apices of the lungs may represent chronic lung changes or contusions.
--- NOTE | 2020-10-11 09:29 | XR_ITS ---
PROCEDURE INFORMATION: Exam: XR Left Knee Exam date and time: 10/11/2020 9:29 AM Age: 60 years old Clinical indication: Pain; Knee; Left; Prior surgery; Additional info: Fall TECHNIQUE: Imaging protocol: XR Left knee. Views: 1 or 2 views. COMPARISON: CA VENOUS DOPPLER LE BI 04/17/2020 7:09 AM FINDINGS: Bones/joints: Total knee replacement.. Displaced patellar fracture involving the upper pole of the patella.. Suprapatellar joint effusion.. Soft tissues: Soft tissue swelling anterior to the patella. IMPRESSION: 1. Total knee replacement.. 2. Displaced patellar fracture involving the upper pole of the patella.. 3. Suprapatellar joint effusion..
--- NOTE | 2020-10-11 09:29 | HMH.EDGENADL ---
ED Disposition Clinical Impression: Fall from standing Qualifiers: Encounter type: initial encounter Qualified Code(s): W19.XXXA - Unspecified fall, initial encounter Lymphedema of lower extremity Qualifiers: Laterality: bilateral Qualified Code(s): I89.0 - Lymphedema, not elsewhere classified Closed head injury Qualifiers: Encounter type: initial encounter Qualified Code(s): S09.90XA - Unspecified injury of head, initial encounter Patella fracture Qualifiers: Encounter type: initial encounter Fracture type: closed Fracture morphology: transverse Fracture alignment: displaced Laterality: left Qualified Code(s): S82.032A - Displaced transverse fracture of left patella, initial encounter for closed fracture Disposition: Admitted as Observation Condition on Discharge: Fair Instructions: DI for Concussion, Exercises to Help Prevent Falls Additional Instructions: You have been evaluated for fall, concussion. Please use care when standing and walking. Follow-up with your primary care doctor this week for recheck. Return to the emergency department for any new or worsening symptoms. Referrals: Casimiro Barraza MD [Primary Care Provider] - Time of Disposition: 11:15 - Critical Care Critical Care Time: No Attestation: On , the high probability of a clinically significant, sudden or life threatening deterioration of the following system(s) required my full and direct attention, intervention and personal management. The time I documented below is in addition to time spent performing reported procedures but includes the following listed in this critical care notation. Medical Decision Making - Medical Records Medical records reviewed: Yes: I reviewed the patient's medical records. - Addison Inquiry Pt receiving controlled substance: No Vital Signs: 10/11/20 09:26 10/11/20 10:30 Temperature 97.0 F L Temperature Source Oral Pulse Rate 56 L Pulse Rate [Left Radial] 68 Respiratory Rate 16 Blood Pressure [Right Arm] 106/66 L Blood Pressure Mean [Right Arm] 79 Blood Pressure Source [Right Arm] Automatic Cuff Blood Pressure Position [Right Arm] Sitting 02 Sat by Pulse Oximetry 94 L 95 Oxygen Delivery Method Room Air Orders (Tests/Meds): ORDERS Category Date Time Status CBC w/Auto Diff [Complete Blood Count Auto Diff] Stat Lab 10/11/20 11:15 Ordered CMP [Comprehensive Metabolic Panel] Stat Lab 10/11/20 11:15 Ordered Covid-19 Nasal PCR ([facility]) Routine Lab 10/11/20 11:15 Ordered - CT Data CT Scan: Head Time Received: 10:[address] Reviewed: Yes: I have reviewed the patient's CT results, I have viewed the radiologist's interpretation Preliminary Findings: Normal/NAD Findings Narrative: Noncontrast head CT No intracranial abnormality. CT C-spine IMPRESSION: 1. No acute fracture of the cervical spine. 2. No subluxation or dislocation of the cervical spine. 3. Intervertebral disc space narrowing C5 through C7 may represent degenerative disc disease.. 4. Interstitial densities in the apices of the lungs may represent chronic lung changes or contusions. Medical Decision Narrative: In summary this is a 60-year-old female presenting to the emergency department with headache and neck pain after a fall. She is clinically stable on arrival. Vital signs within normal limits. No palpable scalp hematoma or palpable skull fracture. Cannot exclude occult intracranial injury or C-spine injury, especially since she is unsure if she lost consciousness or not. Will obtain noncontrast head CT and CT C-spine. Will obtain plain film x-ray of the left knee. Noncontrast head CT shows no intracranial bleed. No skull fracture. CT C-spine shows no bony abnormality. X-rays of the left knee shows a left patella fracture. It is displaced. She is able to flex. Able to extend. Unable to lift either leg off the bed. Patellar fracture discussed with Dr. Mann. He will see her for follow-up. Overall
--- NOTE | 2020-10-11 11:00 | PC.NURSE ---
ON THE PHONE WITH DR. WATT FOR A CONSULT
[2020-10-11 11:32] LABS: Adenovirus,PCR Not Detected (NotDetected); Bordetella Pertussis Not Detected (NotDetected); Chlamydophila Pneumoniae, PCR Not Detected (NotDetected); Coronavirus 19, PCR Not Detected (NotDetected); Coronavirus 229E Not Detected (NotDetected); Coronavirus NL63 Not Detected (NotDetected); Coronavirus OC43 Not Detected (NotDetected); Coronovirus HKU1,PCR Not Detected (NotDetected); Human Metapneumovirus Not Detected (NotDetected); Influenza A, PCR Not Detected (NotDetected); Influenza AH1, 2009 Not Detected (NotDetected); Influenza AH1, PCR Not Detected (NotDetected); Influenza AH3,PCR Not Detected (NotDetected); Influenza B, PCR Not Detected (NotDetected); Mycoplasma Pneumoniae, PCR Not Detected (NotDetected); Parainfluenza 1, PCR Not Detected (NotDetected); Parainfluenza 2, PCR Not Detected (NotDetected); Parainfluenza 3, PCR Not Detected (NotDetected); Parainfluenza 4, PCR Not Detected (NotDetected); Respiratory Syncytial Virus Not Detected (NotDetected); Rhinovirus/Enterovirus Not Detected (NotDetected)
[2020-10-11 11:48] LABS: Basophils # 0.1 K/mm3 (0-0.2); Basophils % 1.1 % (0.1-2.0); Eosinophils # 0.1 K/mm3 (0.0-0.4); Eosinophils % 2.3 % (0.1-12.0); Hematocrit 38.5 % (37.0-47.0); Hemoglobin 12.8 g/dL (12.2-16.2); Lymphocytes # 1.6 K/mm3 (0.7-4.5); Lymphocytes % 28.7 % (10-50); Mean Corpuscular HGB Conc 33.3 g/dL (31.8-35.4); Mean Corpuscular Hemoglobin 31.7 pg (27.0-31.2); Mean Corpuscular Volume 95.3 fl (81-99); Mean Platelet Volume 7.1 fl (7.4-10.4); Monocytes # 0.4 K/mm3 (0.1-1.0); Monocytes % 6.3 % (1.7-9.3); Neutrophils # 3.4 K/mm3 (1.8-7.8); Neutrophils % 61.6 % (37.0-80.0); Platelet Count 299 K/mm3 (142-424); Red Blood Count 4.04 M/mm3 (4.20-5.40); White Blood Count 5.5 K/mm3 (4.8-10.8)
[2020-10-11 11:51] LABS: Chloride 98 mmol/L (98-107); Potassium 4.8 mmoL/L (3.5-5.1); Sodium 134 mmol/L (136-145)
[2020-10-11 11:53] LABS: Blood Urea Nitrogen 14 mg/dl (7-17); Creatinine Clearance Estimated 106 mL/min (50-200); Estimated Glomerular Filt Rate 73 ml/min (>60); GFR (African American) 88 ML/MIN (>60)
[2020-10-11 11:54] LABS: Alanine Aminotransferase 14 U/L (12-78); Albumin Level 4.5 g/dl (3.5-5.0); Albumin/Globulin Ratio 1.6 (1.1-1.8); Alkaline Phosphatase 79 U/L (38-126); Anion Gap 14.8 mEq/L (5-15); Aspartate Amino Transferase 29 U/L (14-36); Bilirubin,Total 0.6 mg/dl (0.2-1.3); Calcium 9.4 mg/dl (8.4-10.2); Carbon Dioxide 26 mmol/L (22.0-30.0); Globulin 2.8 g/dL (1.3-3.2); Glucose 109 mg/dl (74-100); Total Protein,Serum 7.3 g/dl (6.3-8.2)
--- NOTE | 2020-10-11 12:11 | HMH.HP ---
*Admission Date: 10/11/20 *Chief complaint: fall *History of present illness: pt with fall at shelter -60-year-old female presenting to the emergency department by EMS from [facility] after a fall. She was standing at her walker, and line for breakfast when she lost her balance. She fell backwards. Says she struck the back of her head on the hard pavement. She does not think she lost consciousness. Staff were able to get her up. She has a headache that is described as dull and throbbing. Located in the posterior. She also has pain at the top of her neck. She has been able to move her head in all directions without difficulty. No numbness, weakness, tingling in her arms. She has pain in the front of her left knee. Unsure if she struck it in the fall. No pain, numbness in her left foot. She does not take blood thinners. Does not believe that she had chest pain, palpitations, shortness of breath preceding the fall pt was admitted for eval and treatment [facility] History I have reviewed the patient's past medical history: Yes Medical History: Reports:: Cancer, Diabetes Mellitus Type 2, Hypertension Denies:: Diabetes Mellitus Type 1, Seizures *Have you ever received a pneumonia vaccine?: No *Have you received a flu vaccine this season?: No Other Medical History: Reports: Anemia Other Surgeries: Yes: Cholecystectomy, Colonoscopy, , Dilation and Curettage, Hysterectomy-Total, Skin Cancer Excision, Tubal Ligation - *Social History Smoking Status: Never smoker Alcohol Intake: never Substance Use Type: denies use *Occupational Status:: disabled Housing: assisted living facility *Travel in the last 8 weeks: None Family Hx:: Diabetes, Hypertension, Hyperlipidemia, Asthma, Stroke, Heart Attack Review of Systems - Review of Systems Review of systems:: pertinent systems reviewed and negative unless documented below - Constitutional Denies fever(s) - Eyes Denies change in vision - ENT Reports dizziness - *Cardiovascular Denies chest pain - *Respiratory Denies cough - *Gastrointestinal Denies abdominal pain - *Genitourinary Denies blood in urine - *Musculoskeletal Denies joint swelling - Integumentary/Breasts Denies rash - *Neurologic Reports unsteadiness, Reports headache(s), Denies abnormal walking, Denies abnormal speech, Denies dizziness - Psychiatric Denies depression Meds Home Medications Medication Instructions Recorded Confirmed Type Acetaminophen [Tylenol 500mg 500 mg PO Q6HP PRN 04/17/20 10/11/20 History tablet] Albuterol Sulfate [Albuterol 2 puff IH Q6HP PRN 04/17/20 10/11/20 History Sulfate Hfa] Azelastine HCl [Azelastine Nasal 1 spray NOSTRIL-B BID 04/17/20 10/12/20 History [place] 30mL Bottle] [place] Chloride [Urecholine 25 mg PO BID 04/17/20 10/11/20 History 25mg Tablet] Cholecalciferol (Vitamin D3) 125 mcg PO DAILY 04/17/20 10/12/20 History [Vitamin D3] Ferrous Sulfate [Ferrous Sulfate 325 mg PO TID 04/17/20 10/11/20 History 325mg Tablet] Fludrocortisone Acetate [Florinef 0.1 mg PO DAILY 04/17/20 10/11/20 History 0.1mg tablet] Fluticasone Propionate [Flonase 2 spr NS DAILY 04/17/20 10/11/20 History 50mcg nasal spray 16gm] [place]-3 Acid Ethyl Esters [Lovaza] 2 gm PO BID 04/17/20 10/11/20 History Omeprazole [Omeprazole 20mg Tab] 20 mg PO DAILY 04/17/20 10/11/20 History Sucralfate 10 ml PO QID 04/17/20 10/12/20 History Venlafaxine HCl [Venlafaxine HCl 300 mg PO HS 04/17/20 10/12/20 History ER] ondansetron HCL [Ondansetron 4mg 4 mg PO TIDP PRN 04/17/20 10/11/20 History tab*] acetaminophen 300 mg-codeine 30 mg 1 tab PO DAILY PRN #10 tab 06/05/20 10/11/20 Rx tablet potassium chloride 20 mEq 20 meq PO DAILY 09/02/20 10/11/20 History tablet,extended release(part/cryst) Loperamide HCl [Imodium 2 mg 2 mg PO Q6HP PRN 10/11/20 10/12/20 History capsule] Meclizine HCl 12.5 mg PO BIDP PRN 10/11/20 10/12/20 History Urine Leukocyte Test Str
--- NOTE | 2020-10-11 12:30 | PC.NURSE ---
ADMITTING MD AWARE UNABLE TO OBTAIN IV ACCESS. HE STATED TO NOT REATTEMPT FOR ACCESS AGAIN AT THIS TIME UNLESS PATIENT NEEDS MORE LABORATORIES OR IV MEDICATIONS.
--- NOTE | 2020-10-11 13:01 | PC.NURSE ---
Pt is sitting up in the wheel chair and is requesting something to eat. ok with this. Diabetic tray ordered.
--- NOTE | 2020-10-11 13:10 | PC.NURSE ---
Okayed by MD Barraza that pt does not have an IV. Attempted multi times by 2 RNs without success. LAbs were drawn
--- NOTE | 2020-10-11 13:17 | PC.NURSE ---
Report called to Danielle COTE
--- NOTE | 2020-10-11 13:28 | PC.NURSE ---
pt arrived to floor at 1328 via wheelchair
--- NOTE | 2020-10-11 17:38 | PC.NURSE ---
pt is resting in bed. alert and oriented x4. pt has not complained of any pain since arriving to the floor. iv access was attempted x3 with ultrasound and was unsuccessful. pcp aware. ivf's were dc'd and zofran was switched to po. immobilizer noted to lle. pt was able to stand with walker w/o difficulty. pt is aware she cannot put any weight on her lle. lung sounds diminished. abdomen soft/large/non tender with active bowel sounds. 4+ pitting edema noted to lle. 3+ pitting edema noted to lle. pt states she has had lymphedema that she has bee struggling with for years. doppler was used for assess pedal/tibial pulses due to swelling. pt states she does have sleep apnea. will continue to monitor.
[2020-10-11 19:05] LABS: POC Glucose,Bedside 70 (70-110)
[2020-10-11 19:14] LABS: Microscopic, Urine URINE MICROSCOPIC (MICROSCOPIC)
[2020-10-11 19:31] LABS: Appearance,Urine SL CLOUDY (Clear); Bilirubin,Urine Negative (Negative); Blood, Urine Negative (Negative); Color,Urine ORANGE (Yellow); Glucose,Urine (UA) Negative (Negative); Ketones,Urine Negative (Negative); Leukocyte Esterase,Urine 2+ (Negative); Nitrate,Urine POSITIVE (Negative); PH,Urine 6.5 (5.0-8.5); Protein,Urine Negative (Negative); Specific Gravity, Urine <= 1.005 (1.005-1.030)
[2020-10-11 19:44] LABS: Bacteria,Urine 4+ /lpf; Squamous Epithelial Cell,Urine Occasional #/hpf (0-5); WBC,Urine 20-50 #/hpf (0-3)
--- NOTE | 2020-10-12 03:25 | PC.NURSE ---
pt is A/O x4. VSS, pt has pitting x4 edema in LLE, knee immobilizer on left knee. Pt can stand up with walker to use bedside commode will still need x2 assist very weak on her own. VSS, pt rested well last night. call light within reach, will continue to monitor.
[2020-10-12 04:00] VITALS: BP 159/77; PULSE 75; RESP 16; TEMP 36.6; O2SAT 94
[2020-10-12 05:00] VITALS: BMI 39.4
[2020-10-12 07:49] LABS: Basophils # 0.1 K/mm3 (0-0.2); Eosinophils # 0.2 K/mm3 (0.0-0.4); Eosinophils % 2.5 % (0.1-12.0); Hematocrit 36.5 % (37.0-47.0); Hemoglobin 12.2 g/dL (12.2-16.2); Lymphocytes # 1.2 K/mm3 (0.7-4.5); Lymphocytes % 19.4 % (10-50); Mean Corpuscular HGB Conc 33.5 g/dL (31.8-35.4); Mean Corpuscular Hemoglobin 31.7 pg (27.0-31.2); Mean Corpuscular Volume 94.8 fl (81-99); Monocytes # 0.4 K/mm3 (0.1-1.0); Monocytes % 6.9 % (1.7-9.3); Neutrophils # 4.4 K/mm3 (1.8-7.8); Neutrophils % 70.2 % (37.0-80.0); Platelet Count 325 K/mm3 (142-424); Red Blood Count 3.85 M/mm3 (4.20-5.40); Red Cell Distribution Width 13.2 % (11.5-17.5); White Blood Count 6.3 K/mm3 (4.8-10.8)
[2020-10-12 07:54] LABS: Alanine Aminotransferase 14 U/L (12-78); Albumin Level 3.9 g/dl (3.5-5.0); Albumin/Globulin Ratio 1.4 (1.1-1.8); Alkaline Phosphatase 86 U/L (38-126); Anion Gap 10.2 mEq/L (5-15); Aspartate Amino Transferase 25 U/L (14-36); Bilirubin,Total 0.5 mg/dl (0.2-1.3); Blood Urea Nitrogen 14 mg/dl (7-17); Carbon Dioxide 29 mmol/L (22.0-30.0); Chloride 104 mmol/L (98-107); Creatinine Clearance Estimated 104 mL/min (50-200); Estimated Glomerular Filt Rate 73 ml/min (>60); GFR (African American) 88 ML/MIN (>60); Globulin 2.8 g/dL (1.3-3.2); Glucose 82 mg/dl (74-100); Potassium 4.2 mmoL/L (3.5-5.1); Sodium 139 mmol/L (136-145); Total Protein,Serum 6.7 g/dl (6.3-8.2)
[2020-10-12 08:00] VITALS: BP 151/61; PULSE 78; RESP 20; TEMP 36.5; O2SAT 100
--- NOTE | 2020-10-12 10:26 | HMH.ACPN2 ---
Internal Medicine - PN: Subj *Date: 10/12/20 *Time: 09:00 Interval history: pt laying in bed answering question when asked Exam Vital signs and Labs for Last 24 Hours: Temp Pulse Resp BP Pulse Ox 97.7 F 78 20 151/61 H 100 10/12/20 08:00 10/12/20 08:00 10/12/20 08:00 10/12/20 08:00 10/12/20 08:00 Laboratory Results - last 24 hr 10/11/20 11:24: WBC 5.5, RBC 4.04 L, Hgb 12.8, Hct 38.5, MCV 95.3, MCH 31.7 H, MCHC 33.3, RDW 13.0, Plt Count 299, MPV 7.1 L, Neut % (Auto) 61.6, Lymph % (Auto) 28.7, [place] % (Auto) 6.3, Eos % (Auto) 2.3, Baso % (Auto) 1.1, Neut # (Auto) 3.4, Lymph # (Auto) 1.6, [place] # (Auto) 0.4, Eos # (Auto) 0.1, Baso # (Auto) 0.1 10/11/20 11:24: Sodium 134 L, Potassium 4.8, Chloride 98, Carbon Dioxide 26, Anion Gap 14.8, BUN 14, Creatinine 0.80, Estimated Creat Clear 106, Estimated GFR 73, Est GFR ( Amer) 88, Glucose 109 H, Calcium 9.4, Total Bilirubin 0.6, AST 29, ALT 14, Alkaline Phosphatase 79, Total Protein 7.3, Albumin 4.5, Globulin 2.8, Albumin/Globulin Ratio 1.6 10/11/20 11:24: Chlamy pneumoniae PCR Not detected, Adenovirus (PCR) Not detected, B. pertussis DNA (PCR) Not detected, Coronavirus OC43 (PCR) Not detected, Coronavirus HKU1 (PCR) Not detected, Coronavirus 229E (PCR) Not detected, SARS-CoV-2 (PCR) Not detected, Coronavirus NL63 (PCR) Not detected, Human Metapneumovir PCR Not detected, Influenza A (H1) PCR Not detected, Influ A (H1N1/09) PCR Not detected, Influenza A (H3) PCR Not detected, Influenza Type A (PCR) Not detected, Influenza Type B (PCR) Not detected, M. pneumoniae (PCR) Not detected, Parainfluenza 1 (PCR) Not detected, Parainfluenza 2 (PCR) Not detected, Parainfluenza 3 (PCR) Not detected, Parainfluenza 4 (PCR) Not detected, RSV (PCR) Not detected, Entero/Rhino (PCR) Not detected 10/11/20 17:30: POC Glucose 70 10/11/20 18:54: Urine Color [place], Urine Appearance Sl cloudy, Urine pH 6.5, Ur Specific [place] <= 1.005, Urine Protein Negative, Urine Glucose (UA) Negative, Urine Ketones Negative, Urine Blood Negative, Urine Nitrate Positive, Urine Bilirubin Negative, Urine Urobilinogen 1.0, Ur Leukocyte Esterase 2+ A, Urine WBC 20-50, Ur Squamous Epith Cells Occasional, Urine Bacteria 4+ 10/12/20 07:35: WBC 6.3, RBC 3.85 L, Hgb 12.2, Hct 36.5 L, MCV 94.8, MCH 31.7 H, MCHC 33.5, RDW 13.2, Plt Count 325, MPV 7.0 L, Neut % (Auto) 70.2, Lymph % (Auto) 19.4, [place] % (Auto) 6.9, Eos % (Auto) 2.5, Baso % (Auto) 1.0, Neut # (Auto) 4.4, Lymph # (Auto) 1.2, [place] # (Auto) 0.4, Eos # (Auto) 0.2, Baso # (Auto) 0.1 10/12/20 07:35: Sodium 139, Potassium 4.2, Chloride 104, Carbon Dioxide 29, Anion Gap 10.2, BUN 14, Creatinine 0.80, Estimated Creat Clear 104, Estimated GFR 73, Est GFR ( Amer) 88, Glucose 82 D, Calcium 9.0, Total Bilirubin 0.5, AST 25, ALT 14, Alkaline Phosphatase 86, Total Protein 6.7, Albumin 3.9 D, Globulin 2.8, Albumin/Globulin Ratio 1.4 I & O for Last 24 hours: Intake & Output 10/09/20 10/10/20 10/11/20 10/12/20 11:59 11:59 11:59 11:59 Intake Total 600 / 600 Balance 600 / 600 Weight 250 lb 245 lb 4 oz Microbiology Reports for the Last 24 Hours: Microbiology 10/11/20 18:54 Urine,Clean Catch Urine Culture - Preliminary - Constitutional no acute distress, obese, chronically ill appearing - *Routine HEENT Exam Head: Present: normocephalic Eye: Present: PERRL ENT: Present: mucous membranes moist - *Routine Neck Exam Present: supple. Absent: lymphadenopathy - *Routine Respiratory Exam Present: CTA bilaterally - *Routine Cardiovascular Exam Present: RRR - *Routine Abdominal Exam Present: soft, normoactive bowel sounds. Absent: tenderness - *Routine Extremities Exam Present: edema. Absent: cyanosis, clubbing Comments: splint to left knee - *Routine Skin Exam Present: warm. Absent: rash - *Routine Neurological Exam Present: alert - Routine Psychiatric Exam Present: normal affect Assessment and Plan (1) Geovanny pettit
--- NOTE | 2020-10-12 11:25 | HMH.PHAVTE ---
[facility] Pharmacy VTE Monitoring - Patient Demographics Admission date: 10/11/20 Report Date: 10/12/20 Time: 11:25 Allergies/Adverse Reactions: Patient Allergies aspirin Allergy (Verified 09/02/20 08:55) azithromycin Allergy (Verified 09/02/20 08:55) bupropion [From Wellbutrin SR] Allergy (Verified 09/02/20 08:55) Cephalosporins Allergy (Verified 09/02/20 08:55) erythromycin base Adverse Reaction (Mild, Verified 09/02/20 08:55) tramadol Adverse Reaction (Mild, Verified 09/02/20 08:55) Height: 1.68 m Weight: 111.244 kg Patient Problems: Current Active Problems Fall from standing (Acute) Lymphedema of lower extremity (Acute) Closed head injury (Acute) Patella fracture (Acute) - VTE Risk Labs: VTE Related Lab Results Hgb 12.2 g/dL (12.2-16.2) 10/12/20 07:35 Hct 36.5 % (37.0-47.0) L 10/12/20 07:35 Plt Count 325 K/mm3 (142-424) 10/12/20 07:35 BUN 14 mg/dl (7-17) 10/12/20 07:35 Creatinine 0.80 mg/dl (0.52-1.04) 10/12/20 07:35 Estimated Creat Clear 104 mL/min (50-200) 10/12/20 07:35 VTE Score: 4 VTE Risk Level: Low Risk - Prophylaxis VTE Prophylaxis Ordered?: Yes Types of VTE Prophylaxis: TEDS Knee High Location of Applied Device: Bilateral Lower Extremeties - VTE Diagnosis Confirmed Treatment or plan recommended: Continue Current Treatment
[2020-10-12 11:38] LABS: POC Glucose,Bedside 368 (70-110)
[2020-10-12 11:38] LABS: POC Glucose,Bedside 105 (70-110)
--- NOTE | 2020-10-12 13:16 | HMH.PHAINT ---
MEDICATION RECONCILIATION COMPLETED ON PATIENT USING MAR FROM [facility]. -FELICIANO PEDERSEN, BANGD
--- NOTE | 2020-10-12 14:04 | PC.NURSE ---
SHE IS AOX4 WITH SOME EPISODES OF CONFUSION, SHE HAS RESTED IN BED FOR MOST OF SHIFT, TOLERATED STAND AND PIVOT TO BS FOR ELIMINATION WITH ASSISTx2, SHE HAS REMAINED [id number] ON INJURED LLE. DISTAL LOWER EXTREMITIES REMAIN VERY SWOLLEN BUT PEDAL PULSES ARE PALPABLE BILATERALLY, SHE HAS NOT C/O PAIN, ABD IS SOFT-ROUND AND NON-TENDER, DENIES N/V/D.
[2020-10-12 16:00] VITALS: BP 152/77; PULSE 100; RESP 17; TEMP 36.6; O2SAT 96
[2020-10-12 17:01] LABS: POC Glucose,Bedside 127 (70-110)
[2020-10-12 20:00] VITALS: BP 122/85; PULSE 83; RESP 16; TEMP 37.2; O2SAT 95
[2020-10-12 20:18] LABS: POC Glucose,Bedside 114 (70-110)
[2020-10-12 20:53] LABS: POC Glucose,Bedside 130 (70-110)
--- NOTE | 2020-10-12 23:08 | HMH.ORTHOCON ---
*Admission Date: 10/11/20 *Reason for consult:: Fracture patella, left knee *History of present illness: 60-year-old female presenting to the emergency department by EMS from [facility] after a fall. She was standing at her walker, and line for breakfast when she lost her balance. She fell backwards. Says she struck the back of her head on the hard pavement. She does not think she lost consciousness. Staff were able to get her up. She has a headache that is described as dull and throbbing. Located in the posterior. She also has pain at the top of her neck. She has been able to move her head in all directions without difficulty. No numbness, weakness, tingling in her arms. She has pain in the front of her left knee. Unsure if she struck it in the fall. No pain, numbness in her left foot. She does not take blood thinners. Does not believe that she had chest pain, palpitations, shortness of breath preceding the fall. Patient was admitted to the hospital following the fall and I was consulted for management of the right knee injury. Patient previously had a left total knee arthroplasty many years ago. [facility] History I have reviewed the patient's past medical history: Yes Medical History: Reports:: Hypertension Denies:: Cancer, Diabetes Mellitus Type 1, Diabetes Mellitus Type 2, MRSA, Seizures *Have you ever received a pneumonia vaccine?: Yes *Have you received a flu vaccine this season?: No Other Medical History: Reports: Anemia Other Surgeries: Yes: Cholecystectomy, Colonoscopy, , Dilation and Curettage, Hysterectomy-Total, Skin Cancer Excision, Tubal Ligation Amputation: No Fractures: No - *Social History Last grade of school completed: High school graduate Smoking Status: Never smoker Alcohol Intake: never Substance Use Type: denies use *Occupational Status:: disabled Housing: assisted living facility *Travel in the last 8 weeks: None Family Hx:: Diabetes, Hypertension, Hyperlipidemia, Asthma, Stroke, Heart Attack Review of Systems - Review of Systems Review of systems:: pertinent systems reviewed and negative unless documented below - Constitutional Denies chills, Denies fever(s) - Eyes Denies change in vision - ENT Denies difficulty swallowing - *Cardiovascular Denies chest pain, Denies shortness of breath, Denies shortness of breath with activity - *Respiratory Denies chest congestion, Denies cough - *Gastrointestinal Denies abdominal pain, Denies change in bowel habits - *Musculoskeletal Reports abnormal walking, Reports joint pain, Reports limited joint movement - *Neurologic Reports abnormal walking, Reports unsteadiness, Reports headache(s), Denies abnormal speech, Denies dizziness Meds Home Medications Medication Instructions Recorded Confirmed Type Acetaminophen [Tylenol 500mg 500 mg PO Q6HP PRN 04/17/20 08/05/21 History tablet] Ferrous Sulfate [Ferrous Sulfate 325 mg PO TID 04/17/20 08/05/21 History 325mg Tablet] Fludrocortisone Acetate [Florinef 0.1 mg PO DAILY 04/17/20 08/05/21 History 0.1mg tablet] Fluticasone Propionate [Flonase 2 spr NS DAILY 04/17/20 08/05/21 History 50mcg nasal spray 16gm] [place]-3 Acid Ethyl Esters [Lovaza] 2 gm PO BID 04/17/20 08/05/21 History Omeprazole [Omeprazole 20mg Tab] 20 mg PO DAILY 04/17/20 08/05/21 History Sucralfate 10 ml PO QID 04/17/20 08/05/21 History ondansetron HCL [Ondansetron 4mg 4 mg PO TIDP PRN 04/17/20 08/05/21 History tab*] Meclizine HCl 12.5 mg PO BIDP PRN 10/11/20 08/05/21 History Loratadine [Claritin 10mg 10 mg PO DAILY 10/12/20 08/05/21 History Tablet] Montelukast Sodium [Singulair 10mg 10 mg PO PM 10/12/20 08/05/21 History tablet] Quetiapine Fumarate [Seroquel] 150 mg PO 2000 10/12/20 08/05/21 History lamoTRIgine [Lamotrigine] 100 mg PO BID 10/12/20 08/05/21 History polyethylene glycoL 3350 [Miralax 17 gm PO DAILY 10/12/20 08/05/21 History 17gm Packet] Duloxetine HCl 60 mg PO DAILY 02/07/21
--- NOTE | 2020-10-13 02:50 | PC.NURSE ---
A&OX4, BUT SPEECH IS DELAYED. I HAVE HAD TO REPEAT MYSELF MULTIPLE TIMES, PT SEEMS TO NOT UNDERSTAND WHAT YOU'RE SAYING AT FIRST. TOLERATING RA WELL. PT HAS NOT C/O THUS FAR. KNEE IMMOBILIZER PRESENT TO L KNEE. PT HAS SEVERE EDEMA PRESENT TO BLE. WARM AND PULSES PRESENT. PT HAS BEEN IN BED RESTING MAJORITY OF SHIFT. PT BECOMES TEARFUL AT TIMES, AND IS CONFUSED AT TIMES. DR WATT ROUNDED ON PT AND SHE AGREED TO NO SURGERY AT THIS TIME. VSS WILL CONTINUE TO MONITOR.
[2020-10-13 04:00] VITALS: BP 168/94; PULSE 91; RESP 20; TEMP 37; O2SAT 98
[2020-10-13 05:00] VITALS: BMI 38.4
[2020-10-13 05:11] LABS: POC Glucose,Bedside 119 (70-110)
--- NOTE | 2020-10-13 07:05 | CA_ITS ---
APPROVED REPORT EXAM: Comprehensive 2D, Doppler, and color-flow Echocardiogram [employer]: Vivi Gramajo RT(R) Ht: 5 ft 6 in Wt: 245lbs BSA: 2.18 BP: 104/55 mmHg Indications: LANCE, HTN, DM, Obesity, patient uncooperative throughout exam 2D Dimensions Aortic Root 1.98 cm F: 2.7 - 3.3 LA Volume 37.80 mL LA Volume Index 17.33 mL/m2 (M/F) 16-34 M-Mode Dimensions RVDd 2.05 cm (0.9-2.6) LA Diam 2.91 cm (1.9-4.0) LVDd 5.87 cm (3.5-5.7) Ao Diam 2.69 cm (2.0-3.7) LVDs 4.09 cm (3.5-5.7) IVSd 0.85 cm (0.6-1.1) PWd 1.02 cm (0.6-1.1) EF (Teich) 56.90% FS 30.30% EDV (Teich) 171.20 mL ESV (Teich) 73.80 mL LV Diastology E Decel Time 163.00 (160-240 msec) E/A Ratio 0.9 MED E' 10.50 (< 7 cm/sec) E'/MED E' Ratio 7.35 (>14) LAT E' 16.30 (<10 cm/sec) E/LAT E' Ratio 4.74 (>14) Mitral Valve MV E Max Kaleb. 77.00 (40-130 cm/s) MV A Velocity 86.00 (40-130 cm/s) E/A Ratio 0.89 MV Decel. Time 163.00 (160-240 ms) MV PHT 48.00 ms Left Ventricle Left atrium is mildly enlarged, left ventricle is normal size, mild qualitative concentric left ventricular hypertrophy, visually estimated ejection fraction 55% with no regional wall motion abnormality, diastolic parameters are inconclusive in the study. Right Ventricle Right atrium and right ventricle are normal size and contractility. Aortic Valve Aortic valve is minimally thickened and fibrosed, there is no aortic stenosis or aortic insufficiency. Mitral Valve Mitral valve grossly normal, there is trace mitral regurgitation. Tricuspid Valve Tricuspid grossly normal, there is trace tricuspid regurgitation, tricuspid regurgitation jet velocity is inadequate for calculation of the right ventricular systolic pressure. Pulmonic Valve Pulmonic valve is poorly visualized. Great Vessels The pupils normal size. Pericardium No significant pericardial effusion noted. Conclusion 1. Mildly enlarged left atrium, normal left ventricular size, mild concentric left ventricular hypertrophy, visually estimated ejection fraction 55% with no regional wall motion abnormality, diastolic parameters are inconclusive. 2. Trace mitral and tricuspid regurgitation. 3. No significant pericardial effusion noted. Electronically signed by : Lj Pimentel, 10/13/2020 18:53:01
[2020-10-13 08:00] VITALS: BP 190/88; PULSE 84; RESP 15; TEMP 36.6; O2SAT 95
--- NOTE | 2020-10-13 08:26 | XR_ITS ---
PROCEDURE: XR KNEE LT 2V CLINICAL INDICATION: L Patella FX Follow-up fracture COMPARISON: CR XR KNEE LT 2V from 10/11/2020 FINDINGS: There has been a prior total knee replacement. Patellar fracture once again noted along the superior pole of the patella. The fracture fragments remain as before. The fragments are by approximately 9 mm. Soft tissue swelling is present anteriorly. Suprapatellar effusion once again noted. IMPRESSION: No change in the patellar fracture involving the upper pole of the patella Dictated by: Victor Manuel Duarte MD 10/13/2020 09:40 Victor Manuel Duarte MD in [place] 10/13/2020 09:40
--- NOTE | 2020-10-13 08:38 | HMH.ORTHOCON ---
*Admission Date: 10/11/20 *Reason for consult:: Lymphedema *History of present illness: 60-year-old female presenting to the emergency department by EMS from [facility] after a fall. She was standing at her walker, and line for breakfast when she lost her balance. She fell backwards. Says she struck the back of her head on the hard pavement. She does not think she lost consciousness. Staff were able to get her up. She has a headache that is described as dull and throbbing. Located in the posterior. She also has pain at the top of her neck. She has been able to move her head in all directions without difficulty. No numbness, weakness, tingling in her arms. She has pain in the front of her left knee. Unsure if she struck it in the fall. No pain, numbness in her left foot. She does not take blood thinners. Does not believe that she had chest pain, palpitations, shortness of breath preceding the fall Podiatry consult -podiatry was consulted this morning for Ms. Molina for her chronic lymphedema to bilateral lower extremities. Patient is a resident at [facility] that was scheduled on her last visit with us on 09/02/20 to have follow-up appointment with Pauline in lymphedema but does not appear that she has made any of those appointments. Patient has been NPO for our consult so she is not a surgical candidate and we will not be doing any surgery on the patient at this time. The patient may resume her diet as previously ordered this morning. [facility] History I have reviewed the patient's past medical history: Yes Medical History: Reports:: Hypertension Denies:: Cancer, Diabetes Mellitus Type 1, Diabetes Mellitus Type 2, MRSA, Seizures *Have you ever received a pneumonia vaccine?: Yes *Have you received a flu vaccine this season?: No Other Medical History: Reports: Anemia Other Surgeries: Yes: Cholecystectomy, Colonoscopy, , Dilation and Curettage, Hysterectomy-Total, Skin Cancer Excision, Tubal Ligation Amputation: No Fractures: No - *Social History Last grade of school completed: High school graduate Smoking Status: Never smoker Alcohol Intake: never Substance Use Type: denies use *Occupational Status:: disabled Housing: assisted living facility *Travel in the last 8 weeks: None Family Hx:: Diabetes, Hypertension, Hyperlipidemia, Asthma, Stroke, Heart Attack Review of Systems - Constitutional Denies anorexia - Eyes Denies change in vision - ENT Denies abnormal hearing - *Cardiovascular Reports generalized swelling, Reports leg sores (left anterior sore, no drainage, no SOI noted. ), Reports foot swelling (B/L 3+ pedal edema, chronic lymphedema. ), Denies chest pain, Denies shortness of breath - *Respiratory Denies chest congestion, Denies cough - *Gastrointestinal Denies abdominal pain - *Genitourinary Denies painful urination - *Musculoskeletal Reports abnormal walking (pain to her left knee, immobilizer in place. ) - Integumentary/Breasts Reports nail changes (discolored nails,onychomycosis) - *Neurologic Reports unsteadiness, Reports dizziness, Reports headache(s), Denies abnormal walking, Denies abnormal speech - Psychiatric Denies anxiety, Denies irritability - Endocrine Denies cold intolerance - Allergic/Immunologic Denies wheezing Meds Home Medications Medication Instructions Recorded Confirmed Type Acetaminophen [Tylenol 500mg 500 mg PO Q6HP PRN 04/17/20 10/11/20 History tablet] Albuterol Sulfate [Albuterol 2 puff IH Q6HP PRN 04/17/20 10/11/20 History Sulfate Hfa] Azelastine HCl [Azelastine Nasal 1 spray NOSTRIL-B BID 04/17/20 10/12/20 History [place] 30mL Bottle] Bethanechol Chloride [Urecholine 25 mg PO BID 04/17/20 10/11/20 History 25mg Tablet] Cholecalciferol (Vitamin D3) 125 mcg PO DAILY 04/17/20 10/12/20 History [Vitamin D3] Ferrous Sulfate [Ferrous Sulfate 325 mg PO TID 04/17/20 10/11/20 History 325mg Tablet] Fludrocortisone Acetate [Florinef 0.1
--- NOTE | 2020-10-13 10:22 | HMH.ACPN2 ---
Internal Medicine - PN: Subj *Date: 10/13/20 *Time: 13:08 Interval history: 60-year-old female patient resting in bed quietly, she denies any concerns/needs at the moment. She denies any problems during the night lymphedema clinic to see. Exam Vital signs and Labs for Last 24 Hours: Temp Pulse Resp BP Pulse Ox 97.8 F 84 15 190/88 H 95 10/13/20 08:00 10/13/20 08:00 10/13/20 08:00 10/13/20 08:00 10/13/20 08:00 Laboratory Results - last 24 hr 10/11/20 18:54: Urine Color [place], Urine Appearance Sl cloudy, Urine pH 6.5, Ur Specific [place] <= 1.005, Urine Protein Negative, Urine Glucose (UA) Negative, Urine Ketones Negative, Urine Blood Negative, Urine Nitrate Positive, Urine Bilirubin Negative, Urine Urobilinogen 1.0, Ur Leukocyte Esterase 2+ A, Urine WBC 20-50, Ur Squamous Epith Cells Occasional, Urine Bacteria 4+ 10/11/20 19:47: POC Glucose 368 H* 10/12/20 05:25: POC Glucose 105 10/12/20 10:57: POC Glucose 127 H 10/12/20 16:58: POC Glucose 130 H 10/12/20 20:09: POC Glucose 114 H 10/13/20 05:01: POC Glucose 119 H I & O for Last 24 hours: Intake & Output 10/10/20 10/11/20 10/12/20 10/13/20 23:59 23:59 23:59 23:59 Intake Total 240 / 240 960 / 960 0 / 0 Output Total 1200 / 1200 Balance 240 / 240 960 / 960 -1200 / -1200 Weight 247 lb 6 oz 245 lb 4 oz 239 lb 2 oz Microbiology Reports for the Last 24 Hours: Microbiology 10/11/20 18:54 Urine,Clean Catch Urine Culture - Preliminary Gram Negative Rods - Constitutional no acute distress, obese - *Routine HEENT Exam Head: Present: normocephalic Eye: Present: EOMI ENT: Present: mucous membranes moist - *Routine Neck Exam Present: trachea midline. Absent: tracheal deviation - *Routine Respiratory Exam Present: CTA bilaterally. Absent: accessory muscle use - *Routine Cardiovascular Exam Present: RRR - *Routine Abdominal Exam Present: soft, normoactive bowel sounds. Absent: tenderness, rigid - *Routine Extremities Exam Present: edema, pulses intact. Absent: cyanosis, calf tenderness Comments: Bilateral lower extremity edema Left knee immobilizer in place primary care - *Routine Skin Exam Present: dry, warm, wounds. Absent: intact, cyanosis, erythema Comments: Open area left lower extremity with anterior - *Routine Neurological Exam Present: alert, normal speech - Routine Psychiatric Exam Present: normal affect, cooperative. Absent: auditory hallucinations, visual hallucinations Assessment and Plan (1) Fall from standing Status: Acute Qualifiers: Encounter type: initial encounter Qualified Code(s): W19.XXXA - Unspecified fall, initial encounter Category: Medical Code(s): W19.XXXA - Unspecified fall, initial encounter (2) Lymphedema of lower extremity Status: Acute Qualifiers: Laterality: bilateral Qualified Code(s): I89.0 - Lymphedema, not elsewhere classified Category: Medical Code(s): I89.0 - Lymphedema, not elsewhere classified (3) Obesity (BMI 30-39.9) Status: Acute Category: Medical Code(s): E66.9 - Obesity, unspecified (4) Patella fracture Status: Acute Qualifiers: Encounter type: initial encounter Fracture type: closed Fracture morphology: transverse Fracture alignment: displaced Laterality: left Qualified Code(s): S82.032A - Displaced transverse fracture of left patella, initial encounter for closed fracture Category: Medical Code(s): S82.009A - Unspecified fracture of unspecified patella, initial encounter for closed fracture (5) Pickwickian syndrome Status: Acute Category: Medical Code(s): E66.2 - Morbid (severe) obesity with alveolar hypoventilation (6) LANCE (obstructive sleep apnea) Status: Acute Category: Medical Code(s): G47.33 - Obstructive sleep apnea (adult) (pediatric) (7) HTN (hypertension) Status: Acute Qualifiers: Hypertension type: essential hypertension Qualif
--- NOTE | 2020-10-13 10:23 | HMH.OTEV ---
OT Inpatient Evaluation Rehab OT IP Evaluation Start: 10/12/20 10:20 Freq: ONCE Status: Complete Protocol: Document 10/13/20 10:18 [facility] (Rec: 10/13/20 10:23 [facility] [id number]) Rehab OT IP Assessment Subjective History Pt oriented x 2 on arrival. Pt was admitted via ED on 10/11 after a fall with left patella fx. Pt has a past medical history of CA, DM type 2, and HTN. Pt lived at care home prior to hospitalization. Pt was unable to provide prior level of function. After reading notes, it appears patient only walked short distances with walker prior to fx. Pt is now non-weightbearing through left leg. Pt had difficulty understanding this when therapist stood patient. Prior level of function with ADLs is unknown due to pt being poor historian. Subjective I lived alone. Objective Patient Orientation Person,Birthday Upper Extremity Gross ROM WFL Bed Mobility bed mobility-scooting,bed mobility - supine/sit,bed mobility - rolling Assist Level Minimal x 1 (25% assist) Transfer Training Sit/Stand Transfer Assist Level Minimal x 1 (25% assist) Rehab OT IP prob,goals,plan Problems Date of Evaluation: 10/13/20 OT IP Problems Bed Mobility,Transfers,Gait, Balance,Self care,Safety Rehab Potential Rehab Potential Good Equipment Needs Assistive Devices Rolling / Wheeled Walker Plan OT intervention Plan Bed Mobility,Transfers,Gait, Balance,Self care,Safety, Therapeutic Exercise OT Plan Frequency BID Duration LOS Discharge Goals Bed Mobility Ability Standby Assistance Sit to Stand Chair Transfer Ability Contact Guard/Hand Hold Chair Transfer Ability Contact Guard/Hand Hold Chair Transfer Technique Sit to/from Ambulatory Chair Transfer Assistive Devices Rolling Walker Feeding Ability Independent Lower Body Dressing Ability Assistance X1 Upper Body Dressing Ability Standby Assistance Bathing Ability Assistanc
[2020-10-13 11:00] LABS: POC Glucose,Bedside 113 (70-110)
--- NOTE | 2020-10-13 11:07 | SW/DCPLANNER ---
Addendum entered by [facility] 10/14/20 10:38: Nyla from [facility] has accepted this patient under Medicaid pending for today. Level II Passar has been completed. Per Nyla no further COVID testing is needed at this time. I have informed MD. Addendum entered by Nadia Justin 10/14/20 09:48: Currently waiting to hear back from: [facility], [facility] and [facility]. Addendum entered by [facility] 10/13/20 15:27: Nyla with [facility] stated they are not in network with patients insurance: I have asked if she would be a candidate to admit thru Medicaid. I am currently waiting to hear back from [facility]. Patient information has also been faxed to Leona with [facility]. I will continue to follow up with facilities. Addendum entered by [facility] 10/13/20 13:02: PT/OT has stated that patient will need placement at time of discharge. Patients brother has not returned my phone call at this time. Patient information has been faxed to [facility] and [facility]. Original Note: This patient currently resides at [facility]. Patient is nonweight bearing on left lower extremity. Patient will have PT/OT evaluation this morning to determine if patient is safe to return to [facility] or if SNF level of care is needed at discharge. I will follow up with PT/OT once evaluation is completed. I will also follow up with Gerardo from [facility]. I attempted to call patients brother listed in chart regarding possible discharge plans with no answer at this time.
--- NOTE | 2020-10-13 12:02 | HMH.PTEV ---
Physical Therapy Evaluation Rehab PT IP Evaluation Start: 10/12/20 10:20 Freq: ONCE Status: Active Protocol: Document 10/13/20 11:57 [facility] (Rec: 10/13/20 12:02 [facility] [id number]) Subjective/History History History 60 yowf adm to [facility] after ground level fall personal nursing home, now with resulting L patella fx. Pt uses walker for ambulation at baseline. Subjective Subjective Pt c/o L LE hurting and is unable to maintain NWB of L LE at all, although no WB status was designated on MD orders for therapy this date. She has baseline Lymphedema to B LE, worse in the L LE. Rehab PT IP Eval Objective Appearance Patient Behavior Appropriate Patient Orientation Person Difficulty following instructions none Speech Pattern Clear Ambulation Patient Able to Ambulate No Balance Ability to Arise Able, uses arms to help Sitting Balance Steady, safe Standing Balance Steady, wide stance Dynamic Sitting Balance Ability Good Dynamic Standing Balance Ability Poor Transfers Bed Transfer Ability Minimal x 1 (25% assist) Chair Transfer Ability Minimal x 1 (25% assist) Sit to Stand Bed Transfer Ability Minimal x 1 (25% assist) Sit to Stand Chair Transfer Ability Minimal x 1 (25% assist) ROM LLE PT ROM Status ABN Abnormal ROM Comment NT due to knee immobilizer MMT LLE PT MMT ABN Abnormal MMT Grade grossly 3/5 except knee NT Rehab PT IP prob,goals,plan Problems Date of Evaluation: 10/13/20 PT IP Problems Bed Mobility,Transfers,Gait, Safety Rehab Potential Rehab Potential Fair Plan PT Intervention Plan Bed Mobility,Transfers,Gait, Self care,Therapeutic Exercise PT Plan Frequency BID Duration LOS Discharge Goals Bed Transfer Ability Contact Guard/Hand Hold Sit to Stand Chair Transfer Ability Contact Guard/Hand Hold Discharge Plan PT Discharge Plan Pt is most appropriate for rehab placement once medically stable. G -code Required No Eval Complexity Eval Charge Codes 91863 - Moderate Complexity PHYSICIAN CERTIFICATION: I certify the specified therapy services for Johanny Molina are required, authorized,
[2020-10-13 15:35] VITALS: BP 190/98; PULSE 75; RESP 17; TEMP 36.9; O2SAT 95
[2020-10-13 16:15] LABS: POC Glucose,Bedside 129 (70-110)
--- NOTE | 2020-10-13 16:27 | HMH.ORTHPN ---
Subjective Date: 10/13/20 Time: 12:30 Principal diagnosis: Fracture patella, left knee; status post left total knee arthroplasty Interval history: 60-year-old female patient resting in bed, appears comfortable. She says she is doing well and reports any problems. She reports some knee pain which is well controlled with as needed medication. No history of any distal tingling or numbness. She is due to be seen in the lymphedema clinic today. PN: Obj Ex Vital signs: Temp Pulse Resp BP Pulse Ox 98.4 F 75 17 190/98 H 95 10/13/20 15:35 10/13/20 15:35 10/13/20 15:35 10/13/20 15:35 10/13/20 15:35 - Constitutional no acute distress, cooperative - Routine HEENT Exam Head: Absent: normocephalic, atraumatic - Routine Neck Exam Present: supple - Routine Abdominal Exam Present: soft, normoactive bowel sounds - Routine Extremities Exam Comments: On examination of the left knee/lower extremity, the skin is intact. There is a well-healed surgical scar over the left knee from previous total knee arthroplasty. She has an erythematous area over the distal leg but no induration or active discharge noted. There is diffuse swelling of both lower extremities with marked lymphedema distally. Also there is diffuse swelling around the left knee and 1+ knee effusion present; patient has tenderness over anterior knee/patella. Knee range of movements not tested due to known underlying patella fracture. Patient is not able to actively straight leg raise. Knee joint is stable to varus and valgus stress. Thigh and calf are soft and nontender. Distal pulses not palpable secondary to lymphedema; capillary refill is sluggish. Sensation is intact to light touch throughout. - Routine Skin Exam Present: intact - Routine Neurological Exam Present: alert, oriented X3 Progress Note: A&P (1) Fall from standing Status: Acute (2) Lymphedema of lower extremity Status: Acute (3) Obesity (BMI 30-39.9) Status: Chronic (4) Patella fracture Status: Acute (5) Pickwickian syndrome Status: Chronic (6) LANCE (obstructive sleep apnea) Status: Acute (7) HTN (hypertension) Status: Chronic (8) Lymphedema Status: Chronic (9) Diabetes type 2, controlled Status: Acute Assessment and Plan for All Diagnoses:: I discussed about the findings and progress with the patient. Patient is not keen on any surgical intervention which I think is appropriate given her ambulatory status and medical comorbidities. We will continue with the knee immobilizer. She can mobilize weightbearing as tolerated on the left lower extremity. Patient can be discharged from an orthopedic standpoint. Follow-up in my office in 1 week with check x-ray. Continue medical management as per Dr. Barraza.
--- NOTE | 2020-10-13 18:27 | PC.NURSE ---
PT IS SITTING UP IN THE CHAIR. RECEIVED PAIN MEDICATION FOR DISCOMFORT. PT HAS BEEN VERY EMOTIONAL THIS AFTERNOON. PT HAS CONTINUOUSLY ASKED IF HER FAMILY WAS GOING TO COME SEE HER. PT HAS BEEN ABLE TO GET OOB AND AMBULATE WITH WALKER BUT IS UNABLE TO UNDERSTAND THAT SHE IN NOT SUPPOSED TO PUT ANY WEIGHT ON HER LEFT LEG. KNEE IMMOBILIZER IN PLACE. PT HAD A SHOWER AND BED CHANGE THIS SHIFT. EATING AND DRINKING WELL. WILL CONTINUE TO MONITOR.
[2020-10-13 20:00] VITALS: BP 183/89; PULSE 70; RESP 18; TEMP 36.8; O2SAT 95
[2020-10-13 20:32] LABS: POC Glucose,Bedside 137 (70-110)
--- NOTE | 2020-10-14 03:07 | PC.NURSE ---
PT ALERT TO SELF AND BIRTHDAY. PT DOES NOT KNOW WHERE SHE IS THIS SHIFT. PT HAS BEEN VERY CONFUSED AND EMOTIONAL. PT CRYING OUT MULTIPLE TIMES. PT ATTEMPTS TO GET OOB AND WALK AROUND ROOM AND IN HALLWAY. BED SAFETY ON. ADMINISTERED SEROQUIL THAT PT TAKES REGULARLY, PER ON SHAD MD WYNN. PT RESTING BETTER AFTER ADMINISTRATION. KNEE IMMOBILIZER IN PLACE TO L KNEE. PT DOES NOT UNDERSTAND THAT SHE MUST NOT PUT WEIGHT ON L LEG. CONTINUED TO EDUCATE PT ON THIS. PT HAS NO C/O PAIN, EVEN AFTER WALKING ON L LEG. +3 PITTNG EDEMA TO BLE. WARM TO TOUCH. NO OTHER C/O, VSS WILL CONTINUE TO MONITOR.
[2020-10-14 04:00] VITALS: BP 151/82; PULSE 88; RESP 17; TEMP 36.6; O2SAT 17
[2020-10-14 05:00] VITALS: BMI 36.7
[2020-10-14 05:14] LABS: POC Glucose,Bedside 124 (70-110)
[2020-10-14 07:53] LABS: Anion Gap 9.7 mEq/L (5-15); Blood Urea Nitrogen 17 mg/dl (7-17); Calcium 9.1 mg/dl (8.4-10.2); Carbon Dioxide 31 mmol/L (22.0-30.0); Chloride 100 mmol/L (98-107); Creatinine Clearance Estimated 97 mL/min (50-200); Estimated Glomerular Filt Rate 73 ml/min (>60); GFR (African American) 88 ML/MIN (>60); Glucose 102 mg/dl (74-100); Potassium 3.7 mmoL/L (3.5-5.1); Sodium 137 mmol/L (136-145)
[2020-10-14 08:00] VITALS: BP 167/82; PULSE 76; RESP 18; TEMP 36.9; O2SAT 98
[2020-10-14 08:50] LABS: Basophils % 0.4 % (0.1-2.0); Eosinophils # 0.1 K/mm3 (0.0-0.4); Eosinophils % 0.8 % (0.1-12.0); Hematocrit 33.7 % (37.0-47.0); Hemoglobin 11.7 g/dL (12.2-16.2); Lymphocytes # 1.8 K/mm3 (0.7-4.5); Lymphocytes % 19.1 % (10-50); Mean Corpuscular HGB Conc 34.7 g/dL (31.8-35.4); Mean Corpuscular Hemoglobin 31.7 pg (27.0-31.2); Mean Corpuscular Volume 91.5 fl (81-99); Mean Platelet Volume 7.1 fl (7.4-10.4); Monocytes # 0.6 K/mm3 (0.1-1.0); Monocytes % 6.7 % (1.7-9.3); Neutrophils # 6.8 K/mm3 (1.8-7.8); Neutrophils % 72.9 % (37.0-80.0); Platelet Count 311 K/mm3 (142-424); Red Blood Count 3.69 M/mm3 (4.20-5.40); White Blood Count 9.3 K/mm3 (4.8-10.8)
--- NOTE | 2020-10-14 11:51 | HMH.DCSUM ---
General - General Admission date:: 10/11/20 Discharge date: 10/14/20 HPI HPI: pt with fall at [employer] -1-year-old female presenting to the emergency department by EMS from [facility] after a fall. She was standing at her walker, and line for breakfast when she lost her balance. She fell backwards. Says she struck the back of her head on the hard pavement. She does not think she lost consciousness. Staff were able to get her up. She has a headache that is described as dull and throbbing. Located in the posterior. She also has pain at the top of her neck. She has been able to move her head in all directions without difficulty. No numbness, weakness, tingling in her arms. She has pain in the front of her left knee. Unsure if she struck it in the fall. No pain, numbness in her left foot. She does not take blood thinners. Does not believe that she had chest pain, palpitations, shortness of breath preceding the fall pt was admitted for eval and treatment Hospital Course Hospital Course: pt with fall at [employer] -1-year-old female presenting to the emergency department by EMS from [facility] after a fall. She was standing at her walker, and line for breakfast when she lost her balance. She fell backwards. Says she struck the back of her head on the hard pavement. She does not think she lost consciousness. Staff were able to get her up. She has a headache that is described as dull and throbbing. Located in the posterior. She also has pain at the top of her neck. She has been able to move her head in all directions without difficulty. No numbness, weakness, tingling in her arms. She has pain in the front of her left knee. Unsure if she struck it in the fall. No pain, numbness in her left foot. She does not take blood thinners. Does not believe that she had chest pain, palpitations, shortness of breath preceding the fall pt was admitted for eval and treatment 10/11/[address]: IMPRESSION: 1. No acute fracture of the cervical spine. 2. No subluxation or dislocation of the cervical spine. 3. Intervertebral disc space narrowing C5 through C7 may represent degenerative disc disease.. 4. Interstitial densities in the apices of the lungs may represent chronic lung changes or contusions. Electronically signed by Gloria Chaney, 10/11/[address]: FINDINGS: Brain: Normal. No hemorrhage. Unremarkable white matter. No mass effect. Cerebral ventricles: No ventriculomegaly. Paranasal sinuses: Visualized sinuses are unremarkable. No fluid levels. Mastoid air cells: Visualized mastoid air cells are well aerated. Bones/joints: Unremarkable. No acute fracture. Soft tissues: Unremarkable. IMPRESSION: No acute intracranial abnormality. Electronically signed by Gloria Chaney 10/11/20 L Knee XR: IMPRESSION: 1. Total knee replacement.. 2. Displaced patellar fracture involving the upper pole of the patella.. 3. Suprapatellar joint effusion.. Electronically signed by Gloria Chaney 10/13/20 ECHO: Conclusion 1. Mildly enlarged left atrium, normal left ventricular size, mild concentric left ventricular hypertrophy, visually estimated ejection fraction 55% with no regional wall motion abnormality, diastolic parameters are inconclusive. 2. Trace mitral and tricuspid regurgitation. 3. No significant pericardial effusion noted. Electronically signed by : Lj Ross has seen and recommends: I have reviewed the clinical and imaging findings with the patient. I have discussed the diagnosis, natural history and management options in detail including both nonsurgical and surgical. She has a minimally displaced superior pole patella fracture with underlying total knee arthroplasty including patellar resurfacing. The patella button itself appears to be well fixed and stable. Patient has multiple comorbidities including diabetes mellitus, severe lymphedema involving both lower e
[2020-10-14 12:13] LABS: POC Glucose,Bedside 86 (70-110)
== END 2020-10-14 14:24 ==
LOC: ER 11:15 → 2ND 14:26
PROVIDERS: Nurse Practitioner Family; Admitting Provider Emergency Medicine; Emergency Provider Emergency Medicine; PCP Emergency Medicine; Visit Provider Emergency Medicine
DX: S82.002A Unspecified fracture of left patella, initial encounter for closed fracture (principal); M54.2 Cervicalgia; R51.9 Headache, unspecified; E66.01 Morbid (severe) obesity due to excess calories; E11.9 Type 2 diabetes mellitus without complications; Z68.36 Body mass index [BMI] 36.0-36.9, adult; W18.30XA Fall on same level, unspecified, initial encounter; Y92.128 Other place in nursing home as the place of occurrence of the external cause; I89.0 Lymphedema, not elsewhere classified; Z85.828 Personal history of other malignant neoplasm of skin; Z79.899 Other long term (current) drug therapy
CPT/HCPCS: 36415; 70450; 72125; 73560; 80048; 80053; 81001; 82962; 85025; 87086; 87088; 87186; 87581; 87633; 87798; 93306; 97162; 97166; 97530; 97760; 99284; G0378

== ENCOUNTER → 2020-10-21 13:54 | Outpatient (CLI) | payer MEDICARE, MEDICAID, SELFPAY ==
--- NOTE | 2020-10-21 13:59 | XR_ITS ---
PROCEDURE: XR KNEE LT 2V CLINICAL INDICATION: left patella fx; in splint follow-up fracture COMPARISON: CR XR KNEE LT 2V from 10/11/2020 CR XR KNEE LT 2V from 10/13/2020 FINDINGS: There has been a prior total knee replacement. patellar fracture once again noted involving the upper pole of the patella somewhat obscured overlying splint. There are additional calcific densities superior to the fracture fragment and may be due to loose bodies or enthesophytes. The upper pole fracture fragment may be rotated. IMPRESSION: Overall no change in the fracture involving the upper pole of the patella. Prior knee replacement Dictated by: Victor Manuel Duarte MD 10/21/2020 14:25 Victor Manuel Duarte MD in [place] 10/21/2020 14:25
== END ==
PROVIDERS: PCP Emergency Medicine; Visit Provider Orthopaedic Surgery
DX: S82.009A Unspecified fracture of unspecified patella, initial encounter for closed fracture (principal)
CPT/HCPCS: 73560

== ENCOUNTER → 2020-11-04 12:41 | Outpatient (CLI) | payer MEDICARE, MEDICAID, SELFPAY ==
--- NOTE | 2020-11-04 12:57 | XR_ITS ---
PROCEDURE INFORMATION: Exam: XR Left Knee Exam date and time: 11/04/2020 12:57 PM Age: 60 years old Clinical indication: Condition or disease; Other: Patella FX; Additional info: Patella FX follow up, in cast TECHNIQUE: Imaging protocol: XR Left knee. Views: 1 or 2 views. COMPARISON: CR XR KNEE LT 2V 10/21/2020 2:05 PM FINDINGS: Bones/joints: Overlying cast obscures detail. As compared to 10/21/2020, unchanged appearance/alignment of displaced superior patellar fragments. No significant interval healing. Joint effusion likely still present, probably slightly smaller than prior. Total knee arthroplasty redemonstrated. Soft tissues: Soft tissue swelling appears decreased compared to prior. IMPRESSION: 1. No significant interval change in the appearance of displaced superior patellar fragments compared to 10/21/2020. Cast present. 2. Total knee arthroplasty.
== END ==
PROVIDERS: PCP Emergency Medicine; Visit Provider Orthopaedic Surgery
DX: S82.002A Unspecified fracture of left patella, initial encounter for closed fracture (principal)
CPT/HCPCS: 73560

== ENCOUNTER → 2020-11-18 12:47 | Outpatient (CLI) | payer MEDICARE, MEDICAID, SELFPAY ==
--- NOTE | 2020-11-18 13:08 | XR_ITS ---
PROCEDURE: XR PATELLA LT 2V CLINICAL INDICATION: LT patella fx; OUT OF CAST COMPARISON: CR XR KNEE LT 2V from 10/11/2020 FINDINGS: Status post total knee replacement. Distracted patellar fracture is once again noted at the upper pole of the patella with distraction of the fracture fragments by 13 mm not significantly changed. IMPRESSION: Good alignment status post total knee replacement. No change mildly distracted upper pole patellar fracture Dictated by: Victor Manuel Duarte MD 11/18/2020 13:28 Victor Manuel Duarte MD in [place] 11/18/2020 13:28
== END ==
PROVIDERS: PCP Emergency Medicine; Visit Provider Orthopaedic Surgery
DX: S82.002A Unspecified fracture of left patella, initial encounter for closed fracture (principal)
CPT/HCPCS: 73560

== ENCOUNTER 2020-11-26 21:09 | Emergency (ER) | payer MEDICARE, MEDICAID, SELFPAY ==
[2020-11-26 21:10] VITALS: BP 168/75; PULSE 85; RESP 18; TEMP 37.3; O2SAT 98; BMI 44.2
--- NOTE | 2020-11-26 21:22 | CT_ITS ---
PROCEDURE INFORMATION: Exam: CT Lumbar Spine Without Contrast Exam date and time: 11/26/2020 9:22 PM Age: 60 years old Clinical indication: Injury or trauma; Fall; Blunt trauma (contusions or hematomas); Injury date: 11/26/2020; Injury details: Fell back pain; Prior surgery; Surgery date: 6+ months; Surgery type: C section, hysterectomy, gb; Patient HX: Fell back hurts TECHNIQUE: Imaging protocol: Computed tomography images of the lumbar spine without contrast. Radiation optimization: All CT scans at this facility use at least one of these dose optimization techniques: automated exposure control; mA and/or kV adjustment per patient size (includes targeted exams where dose is matched to clinical indication); or iterative reconstruction. COMPARISON: No relevant prior studies available. FINDINGS: Tubes, catheters and devices: There is a device within intrathecal lead seen. The lead enters at the level of T12-L1. Vertebrae: L5 is partially sacralized. Vertebral body heights are maintained. No evidence of fracture. Discs/Spinal canal/Neural foramina: Mild to moderate multilevel degenerative disc disease. Multilevel facet arthropathy is seen. Findings are worst at L3-L4 and L4-L5. Mild bony neural foraminal stenosis at these levels. Soft tissues: Unremarkable. IMPRESSION: No evidence of acute osseous injury
--- NOTE | 2020-11-26 21:22 | CT_ITS ---
PROCEDURE INFORMATION: Exam: CT Cervical Spine Without Contrast Exam date and time: 11/26/2020 9:22 PM Age: 60 years old Clinical indication: Injury or trauma; Fall; Blunt trauma; Injury date: 11/26/2020; Injury details: Fell TECHNIQUE: Imaging protocol: Computed tomography images of the cervical spine without contrast. Radiation optimization: All CT scans at this facility use at least one of these dose optimization techniques: automated exposure control; mA and/or kV adjustment per patient size (includes targeted exams where dose is matched to clinical indication); or iterative reconstruction. COMPARISON: CT CERVICAL SPINE WO CON 10/11/2020 9:53 AM FINDINGS: Bones/joints: Multilevel degenerative changes of the vertebra are present, as manifested by multilevel anterior osteophytes, endplate sclerosis, and multilevel posterior disc osteophyte complexes. There is no evidence of acutely displaced fractures. There is no evidence of joint dislocation. No aggressive osseous lesions. 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 Discs/Spinal canal/Neural foramina: The spinal canal is patent. Mild multilevel bony neural foraminal stenosis appreciated. Thyroid: Subcentimeter thyroid nodules are appreciated. These can be further evaluated with nonemergent ultrasound. Lungs: Lung apices are clear. Soft tissues: Unremarkable. IMPRESSION: 1. Negative for acute skeletal pathology. 2. Incidental findings as detailed above. COMMENTS: Consistent with the [employer]'s Incidental Findings Committee white paper (J Am Rubi Radiol 2015): In patients aged 35 years and older with an incidental thyroid nodule equal to or greater than 1.[address], MRI or extrathyroidal US, further evaluation with dedicated thyroid US is recommended for patients with normal life expectancy and without comorbidities. For smaller nodules without suspicious features, no further evaluation or follow up is recommended.
--- NOTE | 2020-11-26 21:22 | XR_ITS ---
PROCEDURE INFORMATION: Exam: XR Chest Exam date and time: 11/26/2020 9:22 PM Age: 60 years old Clinical indication: Injury or trauma; Fall; Blunt trauma (contusions or hematomas); Injury date: 11/26/2020; Injury details: Fell TECHNIQUE: Imaging protocol: XR of the chest. Views: 4 or more views. COMPARISON: CT THORACIC SPINE WO CON 11/26/2020 9:41 PM FINDINGS: Lungs: Unremarkable. No consolidation. Pleural spaces: Unremarkable. No pleural effusion. No pneumothorax. Heart/Mediastinum: Unremarkable. No cardiomegaly. Bones/joints: Unremarkable. IMPRESSION: No acute findings.
--- NOTE | 2020-11-26 21:22 | XR_ITS ---
PROCEDURE INFORMATION: Exam: XR Pelvis Exam date and time: 11/26/2020 9:22 PM Age: 60 years old Clinical indication: Injury or trauma; Fall; Blunt trauma (contusions or hematomas); Bilateral; Pelvic region; Injury date: 11/26/2020; Injury details: Fell TECHNIQUE: Imaging protocol: XR pelvis. Views: 1 or 2 view. COMPARISON: CT LUMBAR SPINE WO CON 11/26/2020 9:43 PM FINDINGS: Tubes, catheters and devices: Surgical clips seen. Bones/joints: Unremarkable. No acute fracture. Soft tissues: Unremarkable. IMPRESSION: No evidence of acute osseous injury.
--- NOTE | 2020-11-26 21:22 | CT_ITS ---
PROCEDURE INFORMATION: Exam: CT Thoracic Spine Without Contrast Exam date and time: 11/26/2020 9:22 PM Age: 60 years old Clinical indication: Injury or trauma; Fall; Blunt trauma (contusions or hematomas); Injury date: 11/26/2020; Injury details: Fell TECHNIQUE: Imaging protocol: Computed tomography images of the thoracic spine without contrast. Radiation optimization: All CT scans at this facility use at least one of these dose optimization techniques: automated exposure control; mA and/or kV adjustment per patient size (includes targeted exams where dose is matched to clinical indication); or iterative reconstruction. COMPARISON: CT CERVICAL SPINE WO CON 10/11/2020 9:53 AM FINDINGS: Tubes, catheters and devices: A device lead enters the spine at T12-L1. The tip terminates at about the level of T5. Vertebrae: No acute fracture. Normal alignment. Mild multilevel degenerative changes. Discs/Spinal canal/Neural foramina: No significant disc protrusion. No severe spinal canal stenosis. No significant neural foraminal narrowing. Soft tissues: Unremarkable. Lymph nodes: Calcified mediastinal lymph nodes noted. Lungs: An 8 mm pulmonary nodules incidentally noted in the lingula. There are some small spiculations. See image 33 of series 3. Heart: Mild cardiac enlargement. Mediastinum: Small hiatal hernia. IMPRESSION: 1. No evidence of acute osseous injury 2. A spiculated 8 mm lung nodule seen in the lingula which is worrisome for malignancy. Clinical workup and possibly CT chest are recommended. Findings were discussed with Dr. Barraza at 6:28 p.m.
--- NOTE | 2020-11-26 21:22 | CT_ITS ---
PROCEDURE INFORMATION: Exam: CT Head Without Contrast Exam date and time: 11/26/2020 9:22 PM Age: 60 years old Clinical indication: Injury or trauma; Fall; Blunt trauma (contusions or hematomas); Without loss of consciousness; Injury date: 11/26/2020; Injury details: Fell TECHNIQUE: Imaging protocol: Computed tomography of the head without contrast. Radiation optimization: All CT scans at this facility use at least one of these dose optimization techniques: automated exposure control; mA and/or kV adjustment per patient size (includes targeted exams where dose is matched to clinical indication); or iterative reconstruction. COMPARISON: CT HEAD/BRAIN WO CON 10/11/2020 9:50 AM FINDINGS: Brain: Normal. No hemorrhage. Unremarkable white matter. No mass effect. Cerebral ventricles: No ventriculomegaly. Paranasal sinuses: Prior paranasal sinus surgery is suggested. Mastoid air cells: Visualized mastoid air cells are well aerated. Bones/joints: Unremarkable. No acute fracture. Soft tissues: Unremarkable. IMPRESSION: Negative for acute intracranial pathology.
--- NOTE | 2020-11-26 21:26 | XR_ITS ---
PROCEDURE INFORMATION: Exam: XR Left Wrist Exam date and time: 11/26/2020 9:26 PM Age: 60 years old Clinical indication: Injury or trauma; Fall; Blunt trauma (contusions or hematomas); Injury date: 11/26/2020; Injury details: Fell swelling left wrist TECHNIQUE: Imaging protocol: XR Left wrist. Views: 1 or 2 views. COMPARISON: No relevant prior studies available. FINDINGS: Bones/joints: Moderate degenerative changes at the 1st [facility]. Mild negative ulnar variance. Bones mildly osteopenic. No definite fracture. Soft tissues: Normal. IMPRESSION: No evidence of acute osseous injury. If symptoms persist, recommend follow-up in 7-10 days.
[2020-11-26 21:45] LABS: Basophils # 0.1 K/mm3 (0-0.2); Basophils % 1.5 % (0.1-2.0); Eosinophils # 0.2 K/mm3 (0.0-0.4); Eosinophils % 3.4 % (0.1-12.0); Hematocrit 33.9 % (37.0-47.0); Hemoglobin 11.6 g/dL (12.2-16.2); Lymphocytes # 1.5 K/mm3 (0.7-4.5); Lymphocytes % 25.2 % (10-50); Mean Corpuscular HGB Conc 34.3 g/dL (31.8-35.4); Mean Corpuscular Hemoglobin 31.1 pg (27.0-31.2); Mean Corpuscular Volume 90.5 fl (81-99); Mean Platelet Volume 7.5 fl (7.4-10.4); Monocytes # 0.4 K/mm3 (0.1-1.0); Neutrophils # 3.8 K/mm3 (1.8-7.8); Platelet Count 259 K/mm3 (142-424); Red Blood Count 3.75 M/mm3 (4.20-5.40); Red Cell Distribution Width 12.9 % (11.5-17.5); White Blood Count 5.9 K/mm3 (4.8-10.8)
--- NOTE | 2020-11-26 21:47 | HMH.EDFALL ---
ED Disposition Clinical Impression: Mass of left lung, Multiple contusions, Bilateral lower extremity edema Fall Qualifiers: Encounter type: initial encounter Qualified Code(s): W19.XXXA - Unspecified fall, initial encounter Disposition: Home, Self-Care Condition on Discharge: Good Instructions: How to Prevent Falls Additional Instructions: will make appt with pul med for follow up Referrals: Casimiro Barraza MD [Primary Care Provider] - - Critical Care Critical Care Time: No Attestation: On 11/26/20, the high probability of a clinically significant, sudden or life threatening deterioration of the following system(s) required my full and direct attention, intervention and personal management. The time I documented below is in addition to time spent performing reported procedures but includes the following listed in this critical care notation. Medical Decision Making - Medical Records Medical records reviewed: Yes: I reviewed the patient's medical records. - [place] Inquiry Pt receiving controlled substance: No Vital Signs: 11/26/20 21:10 11/27/20 01:07 Temperature 99.1 F Temperature Source Oral Pulse Rate 89 Pulse Rate [Right Brachial] 85 Respiratory Rate 18 22 Blood Pressure 107/63 L Blood Pressure [Right Arm] 168/75 H Blood Pressure Mean 72 Blood Pressure Mean [Right Arm] 106 Blood Pressure Source [Right Arm] Automatic Cuff Blood Pressure Position [Right Arm] Sitting 02 Sat by Pulse Oximetry 98 99 Oxygen Delivery Method Room Air - Lab Data Lab results reviewed: Yes: I reviewed the patient's lab results. Lab Results 11/26/20 21:30: WBC 5.9, RBC 3.75 L, Hgb 11.6 L, Hct 33.9 L, MCV 90.5, MCH 31.1, MCHC 34.3, RDW 12.9, Plt Count 259, MPV 7.5, Neut % (Auto) 64.0, Lymph % (Auto) 25.2, [place] % (Auto) 6.0, Eos % (Auto) 3.4, Baso % (Auto) 1.5, Neut # (Auto) 3.8, Lymph # (Auto) 1.5, [place] # (Auto) 0.4, Eos # (Auto) 0.2, Baso # (Auto) 0.1 11/26/20 21:30: Sodium 129 L, Potassium 4.1, Chloride 93 L, Carbon Dioxide 27, Anion Gap 13.1, BUN 11, Creatinine 0.70, Estimated Creat Clear 49, Estimated GFR 85, Est GFR ( Amer) 103, Glucose 111 H, Calcium 9.2, Total Bilirubin 0.4, AST 23, ALT 14, Alkaline Phosphatase 77, Total Protein 6.5, Albumin 4.1, Globulin 2.4, Albumin/Globulin Ratio 1.7 Result diagrams: 11/26/20 21:30 11/26/20 21:30 - Radiology Data #1 Image(s): Chest, Wrist, Pelvis Image Reviewed: Yes I have reviewed radiologist's interpretation Preliminary Findings: No Fracture Seen - CT Data CT Scan: Head, C-Spine, Chest, T-Spine, L-Spine Time Received: 01:[address] Reviewed: Yes: I have viewed the radiologist's interpretation Preliminary Findings: No Fracture Seen Medical Decision Narrative: possible lt lung mass with no acute fx - has chronic mobility and lower ext edema Fall HPI - General Chief Complaint: Fall Stated Complaint: fall Time Seen by Provider: 11/26/20 21:47 Mode of Arrival: EMS Source of Information: Patient, EMS, Medical Record Limitations: No Limitations Description of Symptoms (Recalled from ER Triage Doc. by RN): pt presents after falling out of her chair while at the [facility], and upon falling placed herself back in her chair, wheeled herself to the nurses station and reported that she had fallen. no loc. vss. pt complains of upper back pain, left wrist pain. states she didn't hit her head but locates pain to cervical spine. - History of Present Illness HPI Narrative: pt with fall at [facility], [facility] - she reports trip type injury - pt reports uses walker but has chronic lower ext edema - - pt reports she has pul nodule from past - no tob - no hip pain MD complaint: fall Onset (ago): hour(s) Fall from: standing Fall witnessed: no Place fall occurred: [facility] Loss of consciousness: none Prolonged down time: no Symptoms prior to fall: none Context: tripped/slipped Location of injury: head, neck, back Severity: moderate Associated symptoms (af
[2020-11-26 22:55] LABS: Alanine Aminotransferase 14 U/L (12-78); Albumin Level 4.1 g/dl (3.5-5.0); Albumin/Globulin Ratio 1.7 (1.1-1.8); Alkaline Phosphatase 77 U/L (38-126); Anion Gap 13.1 mEq/L (5-15); Aspartate Amino Transferase 23 U/L (14-36); Bilirubin,Total 0.4 mg/dl (0.2-1.3); Blood Urea Nitrogen 11 mg/dl (7-17); Calcium 9.2 mg/dl (8.4-10.2); Carbon Dioxide 27 mmol/L (22.0-30.0); Chloride 93 mmol/L (98-107); Creatinine Clearance Estimated 49 mL/min (50-200); Estimated Glomerular Filt Rate 85 ml/min (>60); GFR (African American) 103 ML/MIN (>60); Globulin 2.4 g/dL (1.3-3.2); Glucose 111 mg/dl (74-100); Potassium 4.1 mmoL/L (3.5-5.1); Sodium 129 mmol/L (136-145); Total Protein,Serum 6.5 g/dl (6.3-8.2)
--- NOTE | 2020-11-27 00:09 | CT_ITS ---
PROCEDURE INFORMATION: Exam: CT Chest Without Contrast; Diagnostic Exam date and time: 11/27/2020 12:09 AM Age: 60 years old Clinical indication: Abnormal findings; Other: CT t spine showed mass in ligula; Patient HX: CT t spine tonight showed mass in lingua CT chest recommemed by tennille; Additional info: Rule out mass TECHNIQUE: Imaging protocol: Diagnostic computed tomography of the chest without contrast. Radiation optimization: All CT scans at this facility use at least one of these dose optimization techniques: automated exposure control; mA and/or kV adjustment per patient size (includes targeted exams where dose is matched to clinical indication); or iterative reconstruction. COMPARISON: CR XR CHEST AP 11/26/2020 9:55 PM FINDINGS: Tubes, catheters and devices: Spinal device noted. Lungs: Mild scattered wispy pulmonary opacities are seen. There compatible with scattered atelectasis or atypical infection. There is a 3 mm calcified nodule in the left upper lobe. This is benign. There is a solid 8 mm nodule in the lingula with spiculations. Mild background emphysematous changes. Mild bilateral dependent atelectasis. Pleural spaces: Unremarkable. No pneumothorax. No pleural effusion. Heart: Unremarkable. No cardiomegaly. No pericardial effusion. Mediastinal space: Small hiatal hernia. Aorta: Unremarkable. No aortic aneurysm. Lymph nodes: Small bilateral calcified mediastinal lymph nodes. Gallbladder and bile ducts: Status post cholecystectomy. Bones/joints: Unremarkable. No acute fracture. Soft tissues: Unremarkable. IMPRESSION: 1. A spiculated 8 mm pulmonary nodule in the lingula is confirmed. No additional worrisome nodules are seen. This one is concerning for malignancy. Biopsy, PET/CT, or close follow-up are options. 2. Scattered wispy airspace opacities are seen which could represent atelectasis and or atypical infection.
[2020-11-27 01:07] VITALS: BP 107/63; PULSE 89; RESP 22; O2SAT 99
[2020-11-27 01:35] VITALS: BP 120/64; PULSE 89; RESP 18; TEMP 36.8; O2SAT 95
[2020-11-27 02:30] VITALS: BP 99/56; PULSE 78; RESP 18; O2SAT 92
[2020-11-27 03:30] VITALS: BP 122/78; PULSE 79; RESP 18; O2SAT 92
== END 2020-11-27 03:41 | disposition home or self-care (01) ==
PROVIDERS: Emergency Provider Emergency Medicine; PCP Emergency Medicine
DX: T07.XXXA Unspecified multiple injuries, initial encounter (principal); W01.0XXA Fall on same level from slipping, tripping and stumbling without subsequent striking against object, initial encounter; Y92.129 Unspecified place in nursing home as the place of occurrence of the external cause; R91.8 Other nonspecific abnormal finding of lung field; I89.0 Lymphedema, not elsewhere classified; F41.8 Other specified anxiety disorders; K21.9 Gastro-esophageal reflux disease without esophagitis; I10 Essential (primary) hypertension; Z88.8 Allergy status to other drugs, medicaments and biological substances; Z79.899 Other long term (current) drug therapy
CPT/HCPCS: 70450; 71045; 71250; 72125; 72128; 72131; 72170; 73100; 80053; 85025; 99283

== ENCOUNTER 2020-11-30 08:04 | Emergency (ER) | payer MEDICARE, MEDICAID, SELFPAY ==
[2020-11-30 08:05] VITALS: BP 167/95; PULSE 73; RESP 20; TEMP 36.6; O2SAT 98; BMI 38.7
--- NOTE | 2020-11-30 08:24 | CT_ITS ---
PROCEDURE: CT HEAD/BRAIN WO CON CLINICAL INDICATION: Fall, dizziness, nausea COMPARISON: CT CT HEAD/BRAIN WO CON from 11/26/2020 TECHNIQUE: Unenhanced CT head with axial images obtained. Dose modulation, automated exposure control, and/or iterative reconstruction were used for dose reduction FINDINGS: There is no space-occupying mass or abnormal enhancement.There is no evidence of hemorrhage. Ventricles: The ventricles are within normal limits for size, configuration, and symmetry. The franklin-white differentiation is well preserved throughout, with no evidence of acute infarct. Volume: Brain parenchymal volume is appropriate for age. Osseous Osseous structures are unremarkable. Sinuses: Bilateral maxillary antrostomies are noted. Mastoids: Mastoid air cells are clear. There is a subcutaneous soft tissue hematoma noted in the left parieto-occipital region. IMPRESSION: No acute intracranial process. Left parieto-occipital subcutaneous scalp hematoma. Dictated by: Jovita Mann 11/30/2020 08:56 Jovita Mann in [place] 11/30/2020 08:56
--- NOTE | 2020-11-30 08:29 | HMH.EDGENADL ---
ED Disposition Clinical Impression: Hematoma of scalp Qualifiers: Encounter type: initial encounter Qualified Code(s): S00.03XA - Contusion of scalp, initial encounter Disposition: Home, Self-Care Condition on Discharge: Good Referrals: Provider,Referral, [Referring] - - Critical Care Critical Care Time: No Attestation: On , the high probability of a clinically significant, sudden or life threatening deterioration of the following system(s) required my full and direct attention, intervention and personal management. The time I documented below is in addition to time spent performing reported procedures but includes the following listed in this critical care notation. Medical Decision Making - Medical Records Medical records reviewed: Yes: I reviewed the patient's medical records. - Addison Inquiry Pt receiving controlled substance: Yes (tyl with codeine) Addison was queried for this patient: No Risks and benefits of using a controlled substance: were discussed with pt by me Vital Signs: 11/30/20 08:05 11/30/20 09:01 Temperature 97.9 F Temperature Source Oral Pulse Rate 72 Pulse Rate [Right] 73 Respiratory Rate 20 Blood Pressure 123/94 H Blood Pressure [Right Arm] 167/95 H Blood Pressure Mean 103 Blood Pressure Mean [Right Arm] 119 02 Sat by Pulse Oximetry 98 93 L Oxygen Delivery Method Room Air Orders (Tests/Meds): ED MEDICATIONS Discontinued Medications Generic Name Dose Route Start Last Admin Trade Name Freq PRN Reason Stop Dose Admin Prochlorperazine Edisylate 10 mg 11/30/20 08:27 11/30/20 09:04 Prochlorperazine 10mg/2ml Vial IM 11/30/20 08:28 10 mg ONCE ONE Administration - CT Data CT Scan: Head Time Received: 08:[address] Reviewed: Yes: I have reviewed the patient's CT results, I have viewed the radiologist's interpretation Medical Decision Narrative: The ED today for further evaluation of fall. Differential diagnosis includes scalp hematoma, subdural hematoma, subarachnoid hemorrhage. Work-up will include CT of the head without IV contrast, will administer 10 mg of IM Compazine, patient has no complaints of chest pain shortness of breath abdominal pain, but her nausea is likely related to her head trauma. Given this do not need to pursue laboratory evaluation at this time. Fall seems mechanical in nature, there was no syncopal component or presyncopal component Symptoms reevaluated, drinking apple juice, eating karina crackers, CT head personally reviewed with no evidence of intracranial hemorrhage, subdural, subarachnoid hemorrhage. Radiologist interpretation agrees with no evidence of intracranial trauma and small posterior parietal occipital subcutaneous hematoma. Patient report of her results, headache improving after 10 mg of IM Compazine, plan to discharge back to facility. General Adult HPI - General Chief complaint: Fall Stated complaint: fall Time Seen by Provider: 11/30/20 08:20 Mode of Arrival: EMS Limitations: Physical Limitations Description of Symptoms (Recalled from ER Triage Doc. by RN): patient from [facility] for fall this morning around 0730. patient states that she lost her balance and hit back of head on closet door when falling to the floor. patient did not lose consciousness. bump to right back of head noted. - History of Present Illness HPI narrative: Patient presents the ED today after having a fall this morning at her nursing facility, states that she lost her balance states that her swollen feet which are chronically swollen contributed to this, states that she tripped and hit the back of her head on a closet door, states that she has pain in the back of her head describes his pain is 9 out of 10, states that she is currently nauseous as well took 4 mg of oral Zofran this morning but has not helped significantly with her symptoms. Patient said that she did not pass out did not lose consciousness is not having any weakness of
--- NOTE | 2020-11-30 08:33 | PC.NURSE ---
patient to xray
[2020-11-30 09:01] VITALS: BP 123/94; PULSE 72; O2SAT 93
--- NOTE | 2020-11-30 09:46 | PC.NURSE ---
attempted to call report on patient and set up transport. RN busy, cannot take report at this time, and will call back
--- NOTE | 2020-11-30 09:50 | PC.NURSE ---
called [facility] for patient transport back to [facility]
--- NOTE | 2020-11-30 10:10 | PC.NURSE ---
EMS here for transport of patient back to [facility]
--- NOTE | 2020-11-30 10:15 | PC.NURSE ---
report called to KERA Yen @ [facility]. patient stable for transport at this time
[2020-11-30 10:16] VITALS: BP 130/69; PULSE 64; RESP 18; TEMP 36.6; O2SAT 95
== END 2020-11-30 10:16 | disposition home or self-care (01) ==
PROVIDERS: Emergency Provider Student in an Organized Health Care Education/Training Program; PCP Emergency Medicine
DX: S00.03XA Contusion of scalp, initial encounter (principal); S80.211A Abrasion, right knee, initial encounter; W01.0XXA Fall on same level from slipping, tripping and stumbling without subsequent striking against object, initial encounter; Y92.129 Unspecified place in nursing home as the place of occurrence of the external cause; I10 Essential (primary) hypertension; K21.9 Gastro-esophageal reflux disease without esophagitis; F41.8 Other specified anxiety disorders; Z79.899 Other long term (current) drug therapy
CPT/HCPCS: 70450; 96372; 99283

== ENCOUNTER 2020-12-21 23:50 | Emergency (ER) | payer MEDICARE, MEDICAID, SELFPAY ==
[2020-12-22 00:10] VITALS: BP 122/76; PULSE 113; RESP 16; TEMP 36.4; O2SAT 95; BMI 29.8
--- NOTE | 2020-12-22 00:21 | CT_ITS ---
PROCEDURE INFORMATION: Exam: CT Head Without Contrast Exam date and time: 12/22/2020 12:21 AM Age: 60 years old Clinical indication: Injury or trauma; Fall; Blunt trauma (contusions or hematomas); Consciousness not specified TECHNIQUE: Imaging protocol: Computed tomography of the head without contrast. Axial images only provided for interpretation. Radiation optimization: All CT scans at this facility use at least one of these dose optimization techniques: automated exposure control; mA and/or kV adjustment per patient size (includes targeted exams where dose is matched to clinical indication); or iterative reconstruction. COMPARISON: CT HEAD/BRAIN WO CON 11/30/2020 8:35 AM FINDINGS: Brain: Normal. No hemorrhage. Unremarkable white matter. No mass effect. Cerebral ventricles: No ventriculomegaly. No abnormal extra axial fluid collections. Paranasal sinuses: Extensive surgical changes of the paranasal sinuses with hyperostosis and opacification of the left sphenoid sinus again noted and unchanged. Mastoid air cells: Visualized mastoid air cells are well aerated. Bones/joints: Unremarkable. No acute fracture. Soft tissues: The right-sided scalp hematoma previously noted is nearly resolved. IMPRESSION: No new intracranial mass effect or hemorrhage is identified.
--- NOTE | 2020-12-22 00:21 | CT_ITS ---
PROCEDURE INFORMATION: Exam: CT Cervical Spine Without Contrast Exam date and time: 12/22/2020 12:21 AM Age: 60 years old Clinical indication: Injury or trauma; Fall; Blunt trauma TECHNIQUE: Imaging protocol: Computed tomography images of the cervical spine without contrast. Radiation optimization: All CT scans at this facility use at least one of these dose optimization techniques: automated exposure control; mA and/or kV adjustment per patient size (includes targeted exams where dose is matched to clinical indication); or iterative reconstruction. COMPARISON: CT CERVICAL SPINE WO CON 11/26/2020 9:38 PM FINDINGS: Vertebrae: Again noted is mild retrolisthesis of C3 on C4 and slight anterolisthesis of C5 on C6. There is loss of the normal cervical lordosis centered at the C5-C6 level. 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 Multilevel loss of disc space height especially at C5-C6 with large anterior osteophyte formation is again noted. Uncovertebral osteophyte formation is also present at multiple levels. Near complete fusion of the posterior elements of C2 and C3. Soft tissues: Unremarkable. Prevertebral Space: No prevertebral soft tissue swelling is identified. Thyroid: Redemonstrated are small subcentimeter hypodensities within both the right and left side of the thyroid gland. Lungs: Lung apices are normal. IMPRESSION: Degenerative changes with no acute fracture or dislocation. No change in other incidental findings. COMMENTS: Consistent with the [employer]'s Incidental Findings Committee white paper (J Am Rubi Radiol 2015): In patients aged 35 years and older with an incidental thyroid nodule equal to or greater than 1.[address], MRI or extrathyroidal US, further evaluation with dedicated thyroid US is recommended for patients with normal life expectancy and without comorbidities. For smaller nodules without suspicious features, no further evaluation or follow up is recommended.
--- NOTE | 2020-12-22 00:21 | XR_ITS ---
PROCEDURE INFORMATION: Exam: XR Chest Exam date and time: 12/22/2020 12:21 AM Age: 60 years old Clinical indication: Injury or trauma; Fall; Blunt trauma (contusions or hematomas); Additional info: Falll TECHNIQUE: Imaging protocol: XR of the chest. Views: 1 view. COMPARISON: CT CHEST WO CON 11/27/2020 12:45 AM FINDINGS: Lungs: Inferior lingula nodule seen on recent chest CT is not well seen on this examination. Small calcified granuloma at the left upper lobe peripherally. Calcified lymph nodes involving the left suprahilar region. No hilar enlargement. No mediastinal enlargement. No cardiac enlargement. Pleural spaces: Unremarkable. No pleural effusion. No pneumothorax. Heart/Mediastinum: See Lungs finding. Bones/joints: Degenerative changes of the spine. IMPRESSION: No acute cardiopulmonary disease. Old granulomatous disease.
--- NOTE | 2020-12-22 00:21 | CT_ITS ---
PROCEDURE INFORMATION: Exam: CT Lumbar Spine Without Contrast Exam date and time: 12/22/2020 12:21 AM Age: 60 years old Clinical indication: Injury or trauma; Fall; Blunt trauma (contusions or hematomas) TECHNIQUE: Imaging protocol: Computed tomography images of the lumbar spine without contrast. Radiation optimization: All CT scans at this facility use at least one of these dose optimization techniques: automated exposure control; mA and/or kV adjustment per patient size (includes targeted exams where dose is matched to clinical indication); or iterative reconstruction. COMPARISON: CT LUMBAR SPINE WO CON 11/26/2020 9:43 PM FINDINGS: Tubes, catheters and devices: Intrathecal catheter identified, tip off the examination. Vertebrae: No acute or healing fracture or malalignment. Discs/Spinal canal/Neural foramina: Multilevel spine degenerative changes. Degenerative changes of the SI joints also. No unusual lytic or sclerotic lesions bone. No critical central canal stenosis. Moderate to severe degenerative neural foraminal stenosis at at L5-S1 bilaterally. Up to moderate degenerative neural foraminal stenosis at L4-L5 bilaterally. 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 Soft tissues: Surgical clips in the pelvis. Otherwise unremarkable. IMPRESSION: 1. Moderate to severe degenerative neural foraminal stenosis at at L5-S1 bilaterally. 2. No acute osseous abnormalities.
--- NOTE | 2020-12-22 00:21 | XR_ITS ---
PROCEDURE INFORMATION: Exam: XR Pelvis Exam date and time: 12/22/2020 12:21 AM Age: 60 years old Clinical indication: Injury or trauma; Fall; Blunt trauma (contusions or hematomas); Bilateral; Pelvic region TECHNIQUE: Imaging protocol: XR pelvis. Views: 1 or 2 view. COMPARISON: CR XR PELVIS 1-2V 11/26/2020 9:55 PM FINDINGS: Bones/joints: Degenerative changes of the spine. Degenerative changes of the SI joints. No acute or healing fracture or malalignment. Soft tissues: Unremarkable. Intraperitoneal space: Surgical clips are identified in the pelvis. Gastrointestinal tract: Stool and gas throughout the colon. IMPRESSION: No acute or healing fracture or malalignment.
--- NOTE | 2020-12-22 00:43 | HMH.EDFALL ---
ED Disposition Clinical Impression: Lumbar contusion Qualifiers: Encounter type: initial encounter Qualified Code(s): S30.0XXA - Contusion of lower back and pelvis, initial encounter Fall Qualifiers: Encounter type: initial encounter Qualified Code(s): W19.XXXA - Unspecified fall, initial encounter Disposition: Home, Self-Care Condition on Discharge: Good Instructions: How to Prevent Falls Additional Instructions: resume prev orders - Critical Care Critical Care Time: No Attestation: On , the high probability of a clinically significant, sudden or life threatening deterioration of the following system(s) required my full and direct attention, intervention and personal management. The time I documented below is in addition to time spent performing reported procedures but includes the following listed in this critical care notation. Medical Decision Making - Medical Records Medical records reviewed: Yes: I reviewed the patient's medical records. - Addison Inquiry Pt receiving controlled substance: No Vital Signs: 12/22/20 00:10 Temperature 97.5 F L Temperature Source Oral Pulse Rate [Right] 113 H Respiratory Rate 16 Blood Pressure [Right Arm] 122/76 Blood Pressure Mean [Right Arm] 91 Blood Pressure Source [Right Arm] Automatic Cuff Blood Pressure Position [Right Arm] Supine 02 Sat by Pulse Oximetry 95 Oxygen Delivery Method Room Air - Lab Data Lab results reviewed: Yes: I reviewed the patient's lab results. - Radiology Data #1 Image(s): Chest, Pelvis Image Reviewed: Yes I reviewed the patient's radiology image Preliminary Findings: No Fracture Seen - CT Data CT Scan: Head, C-Spine, L-Spine Time Received: 04:[address] Reviewed: Yes: I have viewed the radiologist's interpretation Preliminary Findings: No Fracture Seen Fall HPI - General Chief Complaint: Fall Stated Complaint: fall Time Seen by Provider: 12/22/20 00:20 Mode of Arrival: EMS Source of Information: Patient, EMS, Medical Record Limitations: No Limitations Description of Symptoms (Recalled from ER Triage Doc. by RN): Pt fell getting out of bed at the [facility] and C/O back pain. Denies any head injury or LOC - History of Present Illness HPI Narrative: fell at [facility] with injury to back MD complaint: fall Onset (ago): hour(s) Fall from: out of bed Fall witnessed: no Place fall occurred: [facility] Loss of consciousness: none Prolonged down time: no Symptoms prior to fall: none Context: tripped/slipped Location of injury: back Severity: moderate Associated symptoms (after fall): denies - Related Data Home Medications Medication Instructions Recorded Confirmed Acetaminophen [Tylenol 500mg 500 mg PO Q6HP PRN 04/17/20 12/07/20 tablet] Azelastine HCl [Azelastine Nasal 1 spray NOSTRIL-B BID 04/17/20 12/07/20 [place] 30mL Bottle] Bethanechol Chloride [Urecholine 25 mg PO BID 04/17/20 12/07/20 25mg Tablet] Cholecalciferol (Vitamin D3) 125 mcg PO DAILY 04/17/20 12/07/20 [Vitamin D3] Ferrous Sulfate [Ferrous Sulfate 325 mg PO TID 04/17/20 12/07/20 325mg Tablet] Fludrocortisone Acetate [Florinef 0.1 mg PO DAILY 04/17/20 12/07/20 0.1mg tablet] Fluticasone Propionate [Flonase 2 spr NS DAILY 04/17/20 12/07/20 50mcg nasal spray 16gm] Streeter-3 Acid Ethyl Esters [Lovaza] 2 gm PO BID 04/17/20 12/07/20 Omeprazole [Omeprazole 20mg Tab] 20 mg PO DAILY 04/17/20 12/07/20 Sucralfate 10 ml PO QID 04/17/20 12/07/20 ondansetron HCL [Ondansetron 4mg 4 mg PO TIDP PRN 04/17/20 12/07/20 tab*] potassium chloride 20 mEq 20 meq PO DAILY 09/02/20 12/07/20 tablet,extended release(part/cryst) Loperamide HCl [Imodium 2 mg 2 mg PO Q6HP PRN 10/11/20 12/07/20 capsule] Meclizine HCl 12.5 mg PO BIDP PRN 10/11/20 12/07/20 Urine Leukocyte Test Strips [Azo] 2 tab PO DAILYP PRN 10/11/20 12/07/20 atenoloL [Atenolol 25mg Tab] 25 mg PO DAILY 10/11/20 12/07/20 Loratadine [Claritin 10mg 10 mg PO DAILY 10/12/20 12/07/20 Tablet]
--- NOTE | 2020-12-22 00:59 | PC.NURSE ---
pt back in room from radiology.
[2020-12-22 04:42] VITALS: BP 143/53; PULSE 91; RESP 16; TEMP 36.4; O2SAT 96
--- NOTE | 2020-12-22 04:45 | PC.NURSE ---
Attempted to call report to [place] and there was no answer.
== END 2020-12-22 04:51 | disposition home or self-care (01) ==
PROVIDERS: Emergency Provider Emergency Medicine; PCP Emergency Medicine
DX: S30.0XXA Contusion of lower back and pelvis, initial encounter (principal); W06.XXXA Fall from bed, initial encounter; Y92.129 Unspecified place in nursing home as the place of occurrence of the external cause; E11.9 Type 2 diabetes mellitus without complications; F41.8 Other specified anxiety disorders; K21.9 Gastro-esophageal reflux disease without esophagitis; I10 Essential (primary) hypertension
CPT/HCPCS: 70450; 71045; 72125; 72131; 72170; 99283

== ENCOUNTER → 2020-12-28 13:13 | Outpatient (CLI) | payer MEDICARE, MEDICAID, SELFPAY ==
[2020-12-28 14:00] VITALS: PULSE 78; PULSE 83
--- NOTE | 2020-12-28 15:22 | RESP.PFTSS ---
Poor patient effort. Patient would not follow commands, especially for FRC, and refused to do Pleth.
== END ==
PROVIDERS: PCP Emergency Medicine; Visit Provider Internal Medicine Pulmonary Disease
DX: R06.00 Dyspnea, unspecified (principal)
CPT/HCPCS: 94060; 94618; 94640; 94727; 94729

== ENCOUNTER → 2021-01-08 13:55 | Outpatient (CLI) | payer MEDICARE, MEDICAID, SELFPAY ==
--- NOTE | 2021-01-08 14:03 | XR_ITS ---
PROCEDURE: XR KNEE LT 2V CLINICAL INDICATION: patellar fracture COMPARISON: CR XR KNEE LT 2V from 10/11/2020 CR XR KNEE LT 2V from 10/13/2020 CR XR KNEE LT 2V from 10/21/2020 FINDINGS: Superior pole patellar fracture once again noted with further retraction of the proximal fracture fragment by approximately 15 mm. There has been a prior total knee arthroplasty. Other findings:A small metallic density is noted along the posterior aspect of the distal thigh not readily apparent on the previous exam. IMPRESSION: Fracture of the superior pole of the patella with increased retraction of the proximal fracture fragment Dictated by: Victor Manuel Duarte MD 01/08/2021 15:11 Victor Manuel Duarte MD in [place] 01/08/2021 15:11
== END ==
PROVIDERS: PCP Emergency Medicine; Visit Provider Orthopaedic Surgery
DX: W19.XXXA Unspecified fall, initial encounter; S82.002A Unspecified fracture of left patella, initial encounter for closed fracture
CPT/HCPCS: 73560

== ENCOUNTER → 2021-01-29 09:44 | Outpatient (CLI) | payer MEDICARE, MEDICAID, SELFPAY ==
--- NOTE | 2021-01-29 09:48 | XR_ITS ---
PROCEDURE: XR KNEE RT 4V CLINICAL INDICATION: RT knee pain COMPARISON: CR XR KNEE LT 2V from 10/11/2020 CR XR KNEE LT 2V from 10/13/2020 CR XR KNEE LT 2V from 10/21/2020 CR XR KNEE LT 2V from 01/08/2021 FINDINGS: No fracture or dislocation. No lytic or blastic change. There is normal mineralization. There are tricompartmental osteoarthritic changes present most severe at the lateral compartment. Suspect small suprapatellar effusion. Other findings:None. IMPRESSION: Osteoarthritis with small effusion Dictated by: Victor Manuel Duarte MD 01/29/2021 10:13 Victor Manuel Duarte MD in [facility] 01/29/2021 10:13
== END ==
PROVIDERS: PCP Emergency Medicine; Visit Provider Orthopaedic Surgery
DX: M25.561 Pain in right knee (principal)
CPT/HCPCS: 73564

== ENCOUNTER 2021-01-29 11:00 | Outpatient (RCR) | payer MEDICARE, MEDICAID, SELFPAY | END 2021-01-29 12:00 | disposition home or self-care (01) | LOC: PT 11:00 | PROVIDERS: Visit Provider Orthopaedic Surgery | DX: M25.561 Pain in right knee (principal) | CPT/HCPCS: 97760 ==

== ENCOUNTER → 2021-01-30 15:59 | Outpatient (REF) | payer MEDICARE, MEDICAID, SELFPAY ==
[2021-01-30 16:23] LABS: Chloride 88 mmol/L (98-107); Potassium 4.5 mmoL/L (3.5-5.1); Sodium 126 mmol/L (136-145)
[2021-01-30 16:26] LABS: Anion Gap 15.5 mEq/L (5-15); Blood Urea Nitrogen 13 mg/dl (7-17); Calcium 9.2 mg/dl (8.4-10.2); Carbon Dioxide 27 mmol/L (22.0-30.0); Estimated Glomerular Filt Rate 85 ml/min (>60); GFR (African American) 103 ML/MIN (>60); Glucose 95 mg/dl (74-100)
== END ==
LOC: LAB.DROPOF 15:59
PROVIDERS: Visit Provider Emergency Medicine
DX: I10 Essential (primary) hypertension (principal)
CPT/HCPCS: 80048

== ENCOUNTER 2021-02-06 14:44 | Inpatient (IN) | payer MEDICARE, MEDICAID, SELFPAY ==
[2021-02-06] VITALS (12 sets, daily range): BP systolic 101–159; BP diastolic 58–95; PULSE 47–68; RESP 9–27; TEMP 33.4–36.6; O2SAT 90–97; BMI 38.7
[2021-02-06 16:33] LABS: Basophils % 0.5 % (0.1-2.0); Chloride 88 mmol/L (98-107); Eosinophils % 0.6 % (0.1-12.0); Hematocrit 36.8 % (37.0-47.0); Hemoglobin 11.6 g/dL (12.2-16.2); Lymphocytes # 0.8 K/mm3 (0.7-4.5); Lymphocytes % 12.9 % (10-50); Mean Corpuscular HGB Conc 31.6 g/dL (31.8-35.4); Mean Corpuscular Hemoglobin 31.4 pg (27.0-31.2); Mean Corpuscular Volume 99.1 fl (81-99); Mean Platelet Volume 7.7 fl (7.4-10.4); Monocytes # 0.2 K/mm3 (0.1-1.0); Monocytes % 2.9 % (1.7-9.3); Neutrophils # 5.2 K/mm3 (1.8-7.8); Neutrophils % 83.1 % (37.0-80.0); Platelet Count 270 K/mm3 (142-424); Potassium 4.7 mmoL/L (3.5-5.1); Red Blood Count 3.71 M/mm3 (4.20-5.40); Red Cell Distribution Width 13.3 % (11.5-17.5); Sodium 127 mmol/L (136-145); White Blood Count 6.3 K/mm3 (4.8-10.8)
[2021-02-06 16:35] LABS: Blood Urea Nitrogen 16 mg/dl (7-17); Creatinine Clearance Estimated 102 mL/min (50-200); Estimated Glomerular Filt Rate 73 ml/min (>60); GFR (African American) 88 ML/MIN (>60)
[2021-02-06 16:36] LABS: Alanine Aminotransferase 19 U/L (12-78); Albumin Level 4.3 g/dl (3.5-5.0); Albumin/Globulin Ratio 1.7 (1.1-1.8); Alkaline Phosphatase 87 U/L (38-126); Anion Gap 13.7 mEq/L (5-15); Aspartate Amino Transferase 27 U/L (14-36); Calcium 8.9 mg/dl (8.4-10.2); Carbon Dioxide 30 mmol/L (22.0-30.0); Globulin 2.6 g/dL (1.3-3.2); Glucose 146 mg/dl (74-100); Total Protein,Serum 6.9 g/dl (6.3-8.2)
[2021-02-06 16:37] LABS: Lactic Acid 1.3 mmol/L (0.7-2.1)
[2021-02-06 16:43] LABS: Bilirubin,Total < 0.1 mg/dl (0.2-1.3)
--- NOTE | 2021-02-06 17:01 | CT_ITS ---
PROCEDURE INFORMATION: Exam: CT Head Without Contrast Exam date and time: 02/06/2021 5:01 PM Age: 60 years old Clinical indication: Other: Excessive somnolence TECHNIQUE: Imaging protocol: Computed tomography of the head without contrast. 3D rendering (Not supervised by radiologist): MIP and/or 3D reconstructed images were created by the technologist. Radiation optimization: All CT scans at this facility use at least one of these dose optimization techniques: automated exposure control; mA and/or kV adjustment per patient size (includes targeted exams where dose is matched to clinical indication); or iterative reconstruction. COMPARISON: CT HEAD/BRAIN WO CON 12/22/2020 12:33 AM FINDINGS: Brain: There is no intracranial hemorrhage or evidence of acute territorial infarct. Haddad-white differentiation is maintained. No mass effect. Cerebral ventricles: No ventriculomegaly. Paranasal sinuses: There are postsurgical changes of the paranasal sinuses. There is mucosal thickening of the left sphenoid sinus. No air-fluid levels. Mastoid air cells: Visualized mastoid air cells are well aerated. Bones/joints: Unremarkable. No acute fracture. Soft tissues: Unremarkable. IMPRESSION: No evidence of acute intracranial abnormality.
[2021-02-06 17:18] LABS: ABG Base Excess -0.3 mmol/L (-2.4-2.3); ABG HCO3 28.5 mmhg (22.0-26.0); ABG Oxygen Saturation 95 % (90-100); ABG PO2 86.9 mmhg (80-100)
[2021-02-06 17:20] LABS: Allen's Test Acceptable; Source Right Radial
--- NOTE | 2021-02-06 17:20 | HMH.EDGENADL ---
ED Disposition Clinical Impression: Hyponatremia Respiratory failure with hypercapnia Qualifiers: Chronicity: acute Qualified Code(s): J96.02 - Acute respiratory failure with hypercapnia Hypothermia Qualifiers: Encounter type: initial encounter Qualified Code(s): T68.XXXA - Hypothermia, initial encounter Disposition: Admitted As Inpatient Condition on Discharge: Serious - Critical Care Critical Care Time: Yes Attestation: On 02/06/21, the high probability of a clinically significant, sudden or life threatening deterioration of the following system(s) required my full and direct attention, intervention and personal management. The time I documented below is in addition to time spent performing reported procedures but includes the following listed in this critical care notation. Total Critical Care Time: 30 Vital system(s) involved:: Respiratory Failure My critical care processes included: Assessment & monitoring of V/S, Initial and Re-exams, Data Review/Interpretation, Coordinating Care, Medication Orders and management, Documentation Medical Decision Making - [place]ison Inquiry Pt receiving controlled substance: No Vital Signs: 02/06/21 15:02 02/06/21 15:03 02/06/21 15:31 Temperature 97.8 F Temperature Source Oral Pulse Rate 59 L 58 L Pulse Rate [Apical] 59 L Respiratory Rate 19 16 18 Blood Pressure 110/69 115/65 Blood Pressure [Right Arm] 110/69 Blood Pressure Mean 89 81 Blood Pressure Mean [Right Arm] 82 Blood Pressure Source [Right Arm] Automatic Cuff Blood Pressure Position [Right Arm] Supine 02 Sat by Pulse Oximetry 90 L 95 92 L Oxygen Delivery Method Nasal Cannula Oxygen Flow Rate (LPM) 4 02/06/21 16:00 02/06/21 16:30 02/06/21 17:01 Temperature Temperature Source Pulse Rate 50 L 47 L 51 L Pulse Rate [Apical] Respiratory Rate 16 17 16 Blood Pressure 105/60 L 125/74 101/58 L Blood Pressure [Right Arm] Blood Pressure Mean 71 83 72 Blood Pressure Mean [Right Arm] Blood Pressure Source [Right Arm] Blood Pressure Position [Right Arm] 02 Sat by Pulse Oximetry 93 L 97 96 Oxygen Delivery Method Oxygen Flow Rate (LPM) 02/06/21 18:01 02/06/21 18:15 02/06/21 18:47 Temperature 92.3 F L Temperature Source Rectal Pulse Rate 53 L 48 L Pulse Rate [Apical] 52 L Respiratory Rate 18 9 L Blood Pressure 121/69 Blood Pressure [Right Arm] 159/95 H Blood Pressure Mean 76 Blood Pressure Mean [Right Arm] 116 Blood Pressure Source [Right Arm] Automatic Cuff Blood Pressure Position [Right Arm] Sitting 02 Sat by Pulse Oximetry 96 95 Oxygen Delivery Method BiPAP Oxygen Flow Rate (LPM) - Lab Data Lab Results 02/06/21 14:52: Troponin I < 0.01 02/06/21 14:57: WBC 6.3, RBC 3.71 L, Hgb 11.6 L, Hct 36.8 L, MCV 99.1 H, MCH 31.4 H, MCHC 31.6 L, RDW 13.3, Plt Count 270, MPV 7.7, Neut % (Auto) 83.1 H, Lymph % (Auto) 12.9, [place] % (Auto) 2.9, Eos % (Auto) 0.6, Baso % (Auto) 0.5, Neut # (Auto) 5.2, Lymph # (Auto) 0.8, [place] # (Auto) 0.2, Eos # (Auto) 0.0, Baso # (Auto) 0.0 02/06/21 14:57: Sodium 127 L, Potassium 4.7, Chloride 88 L, Carbon Dioxide 30, Anion Gap 13.7, BUN 16, Creatinine 0.80, Estimated Creat Clear 102, Estimated GFR 73, Est GFR ( Amer) 88, Glucose 146 H, Calcium 8.9, Total Bilirubin < 0.1 L, AST 27, ALT 19, Alkaline Phosphatase 87, Total Protein 6.9, Albumin 4.3, Globulin 2.6, Albumin/Globulin Ratio 1.7 02/06/21 14:57: Lactate 1.3 02/06/21 17:00: Specimen Source Right radial, O2 % 4 lpm nc, ABG pH 7.15 L*, ABG pCO2 82.8 H, ABG pO2 86.9, ABG HCO3 28.5 H, ABG Total CO2 31.0 H, ABG O2 Saturation 95, ABG Base Excess -0.3, Victor Manuel Test Acceptable 02/06/21 17:35: SARS-CoV-2 (PCR) Not detected, Influenza A Untype (PCR) Not detected, Influenza Type B (PCR) Not detected 02/06/21 17:50: Urine Color Yellow, Urine Appearance Clear, Urine pH 7.0, Ur Specific [place] 1.010, Urine Protein Negative, Urine Glucose (UA) Negative, Urine Ketones Negative, Urine
[2021-02-06 17:22] LABS: ABG PCO2 82.8 mmhg (35.0-45.0); ABG PH 7.15 mmol/L (7.35-7.45)
--- NOTE | 2021-02-06 17:23 | XR_ITS ---
PROCEDURE INFORMATION: Exam: XR Chest Exam date and time: 02/06/2021 5:23 PM Age: 60 years old Clinical indication: Shortness of breath; Additional info: New oxygen requirement TECHNIQUE: Imaging protocol: XR of the chest. Views: 1 view. COMPARISON: CR XR CHEST PORTABLE 12/22/2020 12:45 AM FINDINGS: Lungs: The lungs are hypoinflated with bronchovascular crowding. There are ill-defined opacities in both lung bases and in the perihilar regions bilaterally. Pleural spaces: No evidence of sizeable effusion or pneumothorax. Heart/Mediastinum: The cardiomediastinal silhouette is stable. Bones/joints: Unremarkable. No evidence of acute displaced fracture. IMPRESSION: Ill-defined opacities scattered throughout both lungs may represent subsegmental atelectasis in the setting of low lung volumes however an infectious or inflammatory process cannot be excluded.
--- NOTE | 2021-02-06 17:23 | PC.NURSE ---
Will Rt, called to report VBG results... pH 7.154 and CO2 82.8
[2021-02-06 17:39] LABS: Coronavirus 19, PCR Not Detected (NotDetected); Influenza A, PCR Not Detected (NotDetected); Influenza B, PCR Not Detected (NotDetected)
--- NOTE | 2021-02-06 17:39 | ECG_ITS ---
APPROVED REPORT Exam: Resting ECG HR:52 bpm ECG Measurements Heart Rate 52 AXES UT 170 P 67 QRSd 108 QRS 28 QT 516 T 44 QTc 479 Conclusion Sinus bradycardia Otherwise normal ECG Electronically signed by : Francis Magdaleno MD 02/07/2021 20:52:52
[2021-02-06 17:51] LABS: Troponin I < 0.01 ng/ml (0.00-0.034)
[2021-02-06 17:57] LABS: Microscopic, Urine URINE MICROSCOPIC (MICROSCOPIC)
--- NOTE | 2021-02-06 18:00 | PC.NURSE ---
Patient remains somnolent. Will wake up when called. Is now resting on bipap, 12 lead ekg completed, along with chest xray and ct of the head. Ramos catheter placed, 1400 cc of bright yellow urine output.
[2021-02-06 18:02] LABS: Appearance,Urine CLEAR (Clear); Bilirubin,Urine Negative (Negative); Blood, Urine Negative (Negative); Color,Urine YELLOW (Yellow); Glucose,Urine (UA) Negative (Negative); Ketones,Urine Negative (Negative); Leukocyte Esterase,Urine Negative (Negative); Nitrate,Urine POSITIVE (Negative); Protein,Urine Negative (Negative); Urobilinogen,Urine 0.2 EU/dl (0.2)
[2021-02-06 18:09] LABS: Bacteria,Urine Trace /lpf; Squamous Epithelial Cell,Urine Occasional #/hpf (0-5); WBC,Urine Occasional #/hpf (0-3)
--- NOTE | 2021-02-06 18:12 | PC.NURSE ---
Dr Oconnor spoke with Dr Mckay about admission
--- NOTE | 2021-02-06 18:29 | PC.NURSE ---
1811 bed assignment requested room 208, all staff notified
[2021-02-06 18:34] LABS: Occult Blood,Stool Negative (Negative)
[2021-02-06 18:55] LABS: Free Thyroxine Index 1.7 ug/dL (5.93-13.13); T4 (Thyroxine) 4.8 ug/dl (5.53-11.0); Triiodothryronine (T3) Uptake 35 % (23.5-40.5)
[2021-02-06 19:09] LABS: Thyroid Stimulating Hormone 1.55 uIU/mL (0.465-4.68)
--- NOTE | 2021-02-06 20:06 | HMH.HP ---
*Admission Date: 02/06/21 *Chief complaint: sob *History of present illness: this patient was sent from [facility] with altered mental status -pt was seen in the ed- by ambulance from [facility] for altered mental status. Increased somnolence today. The patient is unable to give any further history herself.pt was found to be hypothermic and in resp failure with abn abg and cxr- pt was admitted with severe sepsis with organ dysfunction on bpap and abx- H History I have reviewed the patient's past medical history: Yes Medical History: Reports:: Anxiety, Cancer, Depression, Diabetes Mellitus Type 2, Gastroesophageal Reflux Disease(GERD), Hypertension, Migraine Denies:: Diabetes Mellitus Type 1, MRSA, Seizures *Have you ever received a pneumonia vaccine?: Yes *Have you received a flu vaccine this season?: Yes Other Medical History: Reports: Anemia, Other Laterality Cases: Bilateral: Tonsillectomy Other Surgeries: Yes: Cholecystectomy, Colonoscopy, , Dilation and Curettage, Hysterectomy-Total, Sinus Surgery, Skin Cancer Excision, Tubal Ligation, Other Amputation: No Fractures: Yes - *Social History Smoking Status: Never smoker Alcohol Intake: never Substance Use Type: denies use *Occupational Status:: disabled Housing: [facility] *Travel in the last 8 weeks: None - Psychiatric History Pschychiatric History:: Reports:: Anxiety, Depression Family Hx:: Diabetes, Hypertension, Hyperlipidemia, Asthma, Stroke, Heart Attack Review of Systems - Review of Systems Review of systems:: unable to obtain Meds Home Medications Medication Instructions Recorded Confirmed Type Acetaminophen [Tylenol 500mg 500 mg PO Q6HP PRN 04/17/20 02/06/21 History tablet] Azelastine HCl [Azelastine Nasal 1 spray NOSTRIL-B BID 04/17/20 02/06/21 History [place] 30mL Bottle] Bethanechol Chloride [Urecholine 25 mg PO BID 04/17/20 02/06/21 History 25mg Tablet] Cholecalciferol (Vitamin D3) 125 mcg PO DAILY 04/17/20 02/06/21 History [Vitamin D3] Ferrous Sulfate [Ferrous Sulfate 325 mg PO TID 04/17/20 02/06/21 History 325mg Tablet] Fludrocortisone Acetate [Florinef 0.1 mg PO DAILY 04/17/20 02/06/21 History 0.1mg tablet] Fluticasone Propionate [Flonase 2 spr NS DAILY 04/17/20 02/06/21 History 50mcg nasal spray 16gm] [place]-3 Acid Ethyl Esters [Lovaza] 2 gm PO BID 04/17/20 02/06/21 History Omeprazole [Omeprazole 20mg Tab] 20 mg PO DAILY 04/17/20 02/06/21 History Sucralfate 10 ml PO QID 04/17/20 02/06/21 History ondansetron HCL [Ondansetron 4mg 4 mg PO TIDP PRN 04/17/20 02/06/21 History tab*] acetaminophen 300 mg-codeine 30 mg 1 tab PO DAILY PRN #10 tab 06/05/20 02/06/21 Rx tablet Loperamide HCl [Imodium 2 mg 2 mg PO Q6HP PRN 10/11/20 02/06/21 History capsule] Meclizine HCl 12.5 mg PO BIDP PRN 10/11/20 02/06/21 History Urine Leukocyte Test Strips [Azo] 2 tab PO DAILYP PRN 10/11/20 02/06/21 History atenoloL [Atenolol 25mg Tab] 25 mg PO DAILY 10/11/20 02/06/21 History Loratadine [Claritin 10mg 10 mg PO DAILY 10/12/20 02/06/21 History Tablet] Montelukast Sodium [Singulair 10mg 10 mg PO PM 10/12/20 02/06/21 History tablet] Quetiapine Fumarate [Seroquel] 300 mg PO HS 10/12/20 02/06/21 History lamoTRIgine [Lamotrigine] 100 mg PO BID 10/12/20 02/06/21 History polyethylene glycoL 3350 [Miralax 17 gm PO DAILY 10/12/20 02/06/21 History 17gm Packet] diazepam 5 mg tablet 2.5 mg PO BID PRN #30 tab 10/15/20 02/06/21 Rx gabapentin 300 mg capsule 300 mg PO TID #90 cap 10/15/20 02/06/21 Rx linaclotide 290 mcg capsule 290 mcg PO DAILY cap 12/03/20 02/06/21 History albuterol sulfate 90 mcg/actuation 1 inh INHALATION Q6H PRN 90 Days 12/07/20 02/06/21 Rx aerosol inhaler #8.5 g venlafaxine 150 mg 150 mg PO BID cap 01/26/21 02/06/21 History capsule,extended release 24 hr Budesonide/Formoterol Fumarate 2 puff INHALATION BID 02/06/21 02/06/21 History [Budesonide-Formoterol 160-4.5] Allergies Allergy/AdvReac Typ
--- NOTE | 2021-02-06 20:08 | PC.NURSE ---
noted at this time that patient does meet criteria for SIRS with incr resp rate, and decr temperature, however despite meeting organ dysfunction by utilizing the BIPAP, she doesn't require a bolus.
--- NOTE | 2021-02-06 20:45 | PC.NURSE ---
PT ARRIVED TO FLOOR VIA STRETCHER FROM ED W/STAFF AT 2044
[2021-02-06 21:09] LABS: Troponin I < 0.01 ng/ml (0.00-0.034)
[2021-02-07] VITALS (14 sets, daily range): BP systolic 121–155; BP diastolic 45–91; PULSE 66–87; RESP 0–28; TEMP 34.1–36.2; O2SAT 90–96; BMI 42.3; BMI 42.5
[2021-02-07 01:18] LABS: ABG Base Excess -1.5 mmol/L (-2.4-2.3); ABG HCO3 27.3 mmhg (22.0-26.0); ABG Oxygen Saturation 97 % (90-100); ABG PO2 97.3 mmhg (80-100); ABG TCO2 29.8 mmhg (23-27)
[2021-02-07 01:20] LABS: Allen's Test Y; Oxygen 40 %; Source R/R; Vent Rate 20
[2021-02-07 01:22] LABS: ABG PCO2 79.7 mmhg (35.0-45.0); ABG PH 7.15 mmol/L (7.35-7.45)
--- NOTE | 2021-02-07 01:29 | PC.NURSE ---
CRITICAL ABG REPORTED TO MD COLLIER.
--- NOTE | 2021-02-07 02:37 | PC.NURSE ---
PT IS CONFUSED, NOT KNOWING WHERE SHE IS OR WHAT HAPPENED TO HER. PT TOLERATING BIPAP. PT HAS HAD NO C/O THUS FAR. LEGS ELEVATED WITH PILLOWS. VSS WILL CONTINUE TO MONITOR.
--- NOTE | 2021-02-07 08:34 | HMH.PHACONS ---
- Pharmacy Consult Date: 02/07/21 Time: 08:34 Referring provider: DR. COLLIER Reason for Consult:: VANCOMYCIN DOSING Allergies and ADEs:: Allergies Allergy/AdvReac Type Severity Reaction Status Date / Time aspirin Allergy Verified 01/29/21 10:28 azithromycin Allergy Verified 01/29/21 10:28 bupropion Allergy Verified 01/29/21 10:28 [From Wellbutrin SR] Cephalosporins Allergy Verified 01/29/21 10:28 erythromycin base AdvReac Mild Verified 01/29/21 10:28 tramadol AdvReac Mild Verified 01/29/21 10:28 Home Medications:: Home Medications Medication Instructions Recorded Confirmed Type Acetaminophen [Tylenol 500mg 500 mg PO Q6HP PRN 04/17/20 02/07/21 History tablet] Azelastine HCl [Azelastine Nasal 1 spray NOSTRIL-B BID 04/17/20 02/07/21 History [place] 30mL Bottle] Bethanechol Chloride [Urecholine 25 mg PO BID 04/17/20 02/07/21 History 25mg Tablet] Cholecalciferol (Vitamin D3) 125 mcg PO DAILY 04/17/20 02/07/21 History [Vitamin D3] Ferrous Sulfate [Ferrous Sulfate 325 mg PO TID 04/17/20 02/07/21 History 325mg Tablet] Fludrocortisone Acetate [Florinef 0.1 mg PO DAILY 04/17/20 02/07/21 History 0.1mg tablet] Fluticasone Propionate [Flonase 2 spr NS DAILY 04/17/20 02/07/21 History 50mcg nasal spray 16gm] [place]-3 Acid Ethyl Esters [Lovaza] 2 gm PO BID 04/17/20 02/07/21 History Omeprazole [Omeprazole 20mg Tab] 20 mg PO DAILY 04/17/20 02/07/21 History Sucralfate 10 ml PO QID 04/17/20 02/07/21 History ondansetron HCL [Ondansetron 4mg 4 mg PO TIDP PRN 04/17/20 02/07/21 History tab*] Meclizine HCl 12.5 mg PO BIDP PRN 10/11/20 02/07/21 History atenoloL [Atenolol 25mg Tab] 25 mg PO DAILY 10/11/20 02/07/21 History Loratadine [Claritin 10mg 10 mg PO DAILY 10/12/20 02/07/21 History Tablet] Montelukast Sodium [Singulair 10mg 10 mg PO PM 10/12/20 02/07/21 History tablet] Quetiapine Fumarate [Seroquel] 300 mg PO HS 10/12/20 02/07/21 History lamoTRIgine [Lamotrigine] 100 mg PO BID 10/12/20 02/07/21 History polyethylene glycoL 3350 [Miralax 17 gm PO DAILY 10/12/20 02/07/21 History 17gm Packet] diazepam 5 mg tablet 2.5 mg PO BID PRN #30 tab 10/15/20 02/07/21 Rx gabapentin 300 mg capsule 300 mg PO TID #90 cap 10/15/20 02/07/21 Rx albuterol sulfate 90 mcg/actuation 1 inh INHALATION Q6H PRN 90 Days 12/07/20 02/07/21 Rx aerosol inhaler #8.5 g venlafaxine 150 mg 150 mg PO BID cap 01/26/21 02/07/21 History capsule,extended release 24 hr Budesonide/Formoterol Fumarate 2 puff INHALATION BID 02/06/21 02/07/21 History [Budesonide-Formoterol 160-4.5] Height: 1.68 m Weight: 119.295 kg Laboratory Results:: Laboratory Results - last 24 hr 02/06/21 14:52: Troponin I < 0.01 02/06/21 14:52: TSH 1.55, Free T4 Index 1.7 L, Thyroxine (T4) 4.8 L, T3 Uptake 35 02/06/21 14:57: WBC 6.3, RBC 3.71 L, Hgb 11.6 L, Hct 36.8 L, MCV 99.1 H, MCH 31.4 H, MCHC 31.6 L, RDW 13.3, Plt Count 270, MPV 7.7, Neut % (Auto) 83.1 H, Lymph % (Auto) 12.9, [place] % (Auto) 2.9, Eos % (Auto) 0.6, Baso % (Auto) 0.5, Neut # (Auto) 5.2, Lymph # (Auto) 0.8, [place] # (Auto) 0.2, Eos # (Auto) 0.0, Baso # (Auto) 0.0 02/06/21 14:57: Sodium 127 L, Potassium 4.7, Chloride 88 L, Carbon Dioxide 30, Anion Gap 13.7, BUN 16, Creatinine 0.80, Estimated Creat Clear 102, Estimated GFR 73, Est GFR ( Amer) 88, Glucose 146 H, Calcium 8.9, Total Bilirubin < 0.1 L, AST 27, ALT 19, Alkaline Phosphatase 87, Total Protein 6.9, Albumin 4.3, Globulin 2.6, Albumin/Globulin Ratio 1.7 02/06/21 14:57: Lactate 1.3 02/06/21 17:00: Specimen Source Right radial, O2 % 4 lpm nc, ABG pH 7.15 L*, ABG pCO2 82.8 H, ABG pO2 86.9, ABG HCO3 28.5 H, ABG Total CO2 31.0 H, ABG O2 Saturation 95, ABG Base Excess -0.3, Victor Manuel Test Acceptable 02/06/21 17:35: SARS-CoV-2 (PCR) Not detected, Influenza A Untype (PCR) Not detected, Influenza Type B (PCR) Not detected 02/06/21 17:50: Urine Color Yellow, Urine Appearance Clear, Urine pH 7.0, Ur Specific [place] 1.010, Urine Prote
--- NOTE | 2021-02-07 09:30 | HMH.ACPN2 ---
Internal Medicine - PN: Subj *Date: 02/08/21 *Time: 06:47 Interval history: on bpap - opens eyes with tactile stim Exam Vital signs and Labs for Last 24 Hours: Temp Pulse Resp BP Pulse Ox 96.6 F L 87 26 H 149/81 H 93 L 02/07/21 07:22 02/07/21 04:00 02/07/21 04:00 02/07/21 04:00 02/07/21 04:00 Laboratory Results - last 24 hr 02/06/21 14:52: Troponin I < 0.01 02/06/21 14:52: TSH 1.55, Free T4 Index 1.7 L, Thyroxine (T4) 4.8 L, T3 Uptake 35 02/06/21 14:57: WBC 6.3, RBC 3.71 L, Hgb 11.6 L, Hct 36.8 L, MCV 99.1 H, MCH 31.4 H, MCHC 31.6 L, RDW 13.3, Plt Count 270, MPV 7.7, Neut % (Auto) 83.1 H, Lymph % (Auto) 12.9, [place] % (Auto) 2.9, Eos % (Auto) 0.6, Baso % (Auto) 0.5, Neut # (Auto) 5.2, Lymph # (Auto) 0.8, [place] # (Auto) 0.2, Eos # (Auto) 0.0, Baso # (Auto) 0.0 02/06/21 14:57: Sodium 127 L, Potassium 4.7, Chloride 88 L, Carbon Dioxide 30, Anion Gap 13.7, BUN 16, Creatinine 0.80, Estimated Creat Clear 102, Estimated GFR 73, Est GFR ( Amer) 88, Glucose 146 H, Calcium 8.9, Total Bilirubin < 0.1 L, AST 27, ALT 19, Alkaline Phosphatase 87, Total Protein 6.9, Albumin 4.3, Globulin 2.6, Albumin/Globulin Ratio 1.7 02/06/21 14:57: Lactate 1.3 02/06/21 17:00: Specimen Source Right radial, O2 % 4 lpm nc, ABG pH 7.15 L*, ABG pCO2 82.8 H, ABG pO2 86.9, ABG HCO3 28.5 H, ABG Total CO2 31.0 H, ABG O2 Saturation 95, ABG Base Excess -0.3, Victor Manuel Test Acceptable 02/06/21 17:35: SARS-CoV-2 (PCR) Not detected, Influenza A Untype (PCR) Not detected, Influenza Type B (PCR) Not detected 02/06/21 17:50: Urine Color Yellow, Urine Appearance Clear, Urine pH 7.0, Ur Specific [place] 1.010, Urine Protein Negative, Urine Glucose (UA) Negative, Urine Ketones Negative, Urine Blood Negative, Urine Nitrate Positive, Urine Bilirubin Negative, Urine Urobilinogen 0.2, Ur Leukocyte Esterase Negative, Urine WBC Occasional, Ur Squamous Epith Cells Occasional, Urine Bacteria Trace 02/06/21 18:25: Stool Occult Blood Negative 02/06/21 20:37: Troponin I < 0.01 02/06/21 22:00: Specimen Source R/r, O2 % 40, ABG pH 7.15 L*, ABG pCO2 79.7 H, ABG pO2 97.3, ABG HCO3 27.3 H, ABG Total CO2 29.8 H, ABG O2 Saturation 97, ABG Base Excess -1.5, Victor Manuel Test Y, Vent Rate 20 I & O for Last 24 hours: Intake & Output 02/04/21 02/05/21 02/06/21 02/07/21 11:59 11:59 11:59 11:59 Output Total 700 / 700 Balance -700 / -700 Weight 263 lb - Constitutional obese, somnolent - *Routine HEENT Exam Head: Present: normocephalic Eye: Present: EOMI, PERRL ENT: Present: mucous membranes dry - *Routine Neck Exam Absent: JVD - *Routine Respiratory Exam Present: decreased breath sounds - *Routine Cardiovascular Exam Present: RRR, murmur - *Routine Abdominal Exam Present: soft - *Routine Extremities Exam Present: edema - *Routine Skin Exam Present: intact - *Routine Neurological Exam Present: altered mental status - Routine Psychiatric Exam Present: unable to assess Assessment and Plan (1) Diabetes type 2, controlled Status: Acute Qualifiers: Diabetes mellitus manager terminal insulin use: without care home use Diabetes mellitus complication status: with skin complications Diabetes mellitus complication detail: with other skin ulcer Qualified Code(s): E11.622 - Type 2 diabetes mellitus with other skin ulcer Category: Medical Code(s): E11.9 - Type 2 diabetes mellitus without complications (2) Pickwickian syndrome Status: Acute Category: Medical Code(s): E66.2 - Morbid (severe) obesity with alveolar hypoventilation (3) Hyponatremia Status: Acute Category: Medical Code(s): E87.1 - Hypo-osmolality and hyponatremia (4) Respiratory failure with hypercapnia Status: Acute Qualifiers: Chronicity: acute on chronic Qualified Code(s): J96.22 - Acute and chronic respiratory failure with hypercapnia Category: Medical Code(s): J96.92 - Respiratory failure, unspecified with hypercapnia (5) Severe sepsis with acute organ
--- NOTE | 2021-02-07 09:31 | XR_ITS ---
PROCEDURE INFORMATION: Exam: XR Chest Exam date and time: 02/07/2021 9:31 AM Age: 60 years old Clinical indication: Shortness of breath; Additional info: SOB on bipap inpatient TECHNIQUE: Imaging protocol: XR of the chest. Views: 1 view. COMPARISON: CR XR CHEST PORTABLE 02/06/2021 5:55 PM FINDINGS: Lungs: Bilateral pulmonary opacities are unchanged. No lobar consolidation. Pleural spaces: Unremarkable. No pleural effusion. No pneumothorax. Heart/Mediastinum: Stable heart size. Bones/joints: No acute findings. IMPRESSION: Bilateral opacities unchanged from 02/06/2021.
[2021-02-07 11:08] LABS: ABG Base Excess 2.7 mmol/L (-2.4-2.3); ABG HCO3 31.1 mmhg (22.0-26.0); ABG Oxygen Saturation 96 % (90-100); ABG PO2 86.2 mmhg (80-100); ABG TCO2 33.7 mmhg (23-27)
[2021-02-07 11:12] LABS: Allen's Test Acceptable; Oxygen 40 %; Source Right Radial; Tidal Volume bipap 20/12; Vent Rate 20
[2021-02-07 11:17] LABS: ABG PCO2 85.8 mmhg (35.0-45.0); ABG PH 7.18 mmol/L (7.35-7.45)
--- NOTE | 2021-02-07 11:27 | HMH.ITSTN ---
called about PE CT and went to floor- patient SOB on bypap-- respiratory not able to come 1st time I went she was running blood gas on her. I called back and said hold till they can get patient stable she is gonna recommend venting the patient due to bad labs and sats
--- NOTE | 2021-02-07 11:31 | PC.NURSE ---
Dr. Mckay notified of critical ABG's. Order's to give 80 mg Lasix now once IV, NPO now other than medications, RT to adjust BiPap to Peep of 14 and Rate of 28, and repeat ABG's at 1600. Orders repeated and verified.
--- NOTE | 2021-02-07 11:58 | HMH.ITSTN ---
went to the floor and did portable x-ray advised Vivi her nurse PE protocol from CT was ordered and I need respiratory to come with patient. She said blood gas was bad and she will call or have resp call when they are ready to come with patient
--- NOTE | 2021-02-07 14:14 | P.CONPHA_ITS ---
[facility] Pharmacy VTE Monitoring - Patient Demographics Admission date: 02/07/21 Report Date: 02/07/21 Time: 14:14 Allergies/Adverse Reactions: Patient Allergies aspirin Allergy (Verified 01/29/21 10:28) azithromycin Allergy (Verified 01/29/21 10:28) bupropion [From Wellbutrin SR] Allergy (Verified 01/29/21 10:28) Cephalosporins Allergy (Verified 01/29/21 10:28) erythromycin base Adverse Reaction (Mild, Verified 01/29/21 10:28) tramadol Adverse Reaction (Mild, Verified 01/29/21 10:28) Height: 1.68 m Weight: 120 kg Patient Problems: Current Active Problems Diabetes type 2, controlled (Acute) Pickwickian syndrome (Acute) Respiratory failure with hypercapnia (Acute) Hyponatremia (Acute) Hypothermia (Acute) Hyponatremia (Acute) Respiratory failure with hypercapnia (Acute) Severe sepsis with acute organ dysfunction (Acute) - VTE Risk Labs: VTE Related Lab Results Hgb 11.6 g/dL (12.2-16.2) L 02/06/21 14:57 Hct 36.8 % (37.0-47.0) L 02/06/21 14:57 Plt Count 270 K/mm3 (142-424) 02/06/21 14:57 BUN 16 mg/dl (7-17) 02/06/21 14:57 Creatinine 0.80 mg/dl (0.52-1.04) 02/06/21 14:57 Estimated Creat Clear 102 mL/min (50-200) 02/06/21 14:57 - Prophylaxis Types of VTE Prophylaxis: TEDS Knee High, Pharmacological (LOVENOX AND TEDS ORDERED)
[2021-02-07 16:34] LABS: ABG Base Excess 4.2 mmol/L (-2.4-2.3); ABG HCO3 31.6 mmhg (22.0-26.0); ABG Oxygen Saturation 99 % (90-100); ABG PH 7.23 mmol/L (7.35-7.45); ABG PO2 123.2 mmhg (80-100)
[2021-02-07 16:54] LABS: Chloride, Arterial 92 mmol/L (98-107); Potassium, Arterial 4.5 mmoL/L (3.5-5.1); Sodium Arterial 128 mmol/L (137-145)
[2021-02-07 16:55] LABS: Calcium, Arterial 4.8 mg/dL (8.5-10.1); Lactate Arterial 1.5 mmol/L (0.4-2.0)
[2021-02-07 16:56] LABS: Allen's Test Acceptable; Oxygen 40 %; Source Right Radial; Vent Rate 28
[2021-02-07 16:57] LABS: ABG PCO2 76.6 mmhg (35.0-45.0)
--- NOTE | 2021-02-07 17:27 | PC.NURSE ---
Phone call to Dr. Mckay regarding patient's repeat ABG. Orders to repeat 02/08/21 at 630 am and stop fluids at this time. Orders repeated and verified. Pt. resting peacefully. Will continue to monitor.
[2021-02-07 19:39] LABS: Basophils # 0.1 K/mm3 (0-0.2); Basophils % 0.2 % (0.1-2.0); Eosinophils # 0.1 K/mm3 (0.0-0.4); Eosinophils % 0.4 % (0.1-12.0); Hematocrit 35.2 % (37.0-47.0); Hemoglobin 11.2 g/dL (12.2-16.2); Lymphocytes # 0.5 K/mm3 (0.7-4.5); Lymphocytes % 1.9 % (10-50); Mean Corpuscular HGB Conc 31.8 g/dL (31.8-35.4); Mean Corpuscular Hemoglobin 32.3 pg (27.0-31.2); Mean Corpuscular Volume 101.5 fl (81-99); Monocytes # 0.4 K/mm3 (0.1-1.0); Monocytes % 1.6 % (1.7-9.3); Neutrophils # 25.6 K/mm3 (1.8-7.8); Platelet Count 284 K/mm3 (142-424); Red Blood Count 3.47 M/mm3 (4.20-5.40); Red Cell Distribution Width 13.3 % (11.5-17.5); White Blood Count 26.7 K/mm3 (4.8-10.8)
[2021-02-07 19:43] LABS: MANUAL DIFFERENTIAL MANUAL DIFFERENTIAL (MANUAL DIFF)
[2021-02-07 19:54] LABS: Hypochromasia 1+; Lymphocytes % 5 % (10-50); Macrocytosis 2+; Neutrophils % 82 % (42-76); Platelet Estimate Normal; Total Cells Counted 100
[2021-02-07 20:41] LABS: Chloride 92 mmol/L (98-107); Potassium 5.2 mmoL/L (3.5-5.1); Sodium 129 mmol/L (136-145)
[2021-02-07 20:44] LABS: Anion Gap 13.2 mEq/L (5-15); Blood Urea Nitrogen 26 mg/dl (7-17); Carbon Dioxide 29 mmol/L (22.0-30.0); Creatinine Clearance Estimated 55 mL/min (50-200); Estimated Glomerular Filt Rate 64 ml/min (>60); GFR (African American) 77 ML/MIN (>60)
[2021-02-07 20:45] LABS: Calcium 8.7 mg/dl (8.4-10.2); Glucose 154 mg/dl (74-100)
[2021-02-08] VITALS (14 sets, daily range): BP systolic 106–171; BP diastolic 51–85; PULSE 68–97; RESP 14–30; TEMP 34.9–36.6; O2SAT 91–98; BMI 39.8
--- NOTE | 2021-02-08 04:05 | PC.NURSE ---
A&OX1. PT SEEMS BETTER THIS SHIFT BUT STILL APPEARS TEARY EYED AT TIMES AND HAS CONFUSION. TOLERATING BIPAP T/O SHIFT, O2 SAT LOW-MID 90S. PT UPPER AND LOWER EXTREMITIES WITH +2 EDEMA NOTED. ELEVATED T/O NIGHT. F/C PRESENT DRAINING LIGHT YELLOW URINE. PT HAS HAD ONE LOOSE BM THUS FAR THIS SHIFT. VERY DARK IN COLOR, FOUL SMELLING. PT BATHED, NEW GOWN AND LINENS APPLIED. PT TOLERATED WELL. PT HAS SLEPT MAJORITY OF SHIFT. AT BEGINNING OF SHIFT, RECTAL TEMP 96.2. WARM BLANKETS PLACED ON PT. RE-CHECKED, RECTAL TEMP 96.9. PT CONTINUES TO BE COVERED WITH BLANKETS, WILL RE-CHECK RECTAL TEMP. PT HAS HAD NO C/O THUS FAR. VSS WILL CONTINUE TO MONITOR.
[2021-02-08 06:55] LABS: ABG HCO3 29.7 mmhg (22.0-26.0); ABG Oxygen Saturation 100 % (90-100); ABG PH 7.35 mmol/L (7.35-7.45); ABG PO2 142.6 mmhg (80-100); ABG TCO2 31.4 mmhg (23-27)
[2021-02-08 06:57] LABS: Allen's Test Acceptable; Oxygen 40 %; Pressure Support 24/10; Source Right Radial; Vent Rate 28
[2021-02-08 06:59] LABS: ABG PCO2 55.4 mmhg (35.0-45.0)
--- NOTE | 2021-02-08 07:00 | PC.NURSE ---
REPORTED CRITICAL ABG TO MD COLLIER. CONFIRMED NAME, ROOM NUMBER, AND .
--- NOTE | 2021-02-08 08:50 | SW/DCPLANNER ---
Addendum entered by Nadia Santacruz 02/09/21 11:42: I have informed Nyla with [facility] that the plan is for this patient to return today. Nyla has stated that patient does NOT need an additional COVID swab prior to returning. Addendum entered by Nadia Santacruz 02/09/21 09:43: I have updated Nyla with [facility] regarding this patient. Original Note: This patient currently resides at [facility]. I spoke with Nyla from [facility] to confirm patient is [facility] level of care. I will continue to follow up with Nyla until patient is medically stable for discharge.
[2021-02-08 09:09] LABS: Chloride 94 mmol/L (98-107); Potassium 4.8 mmoL/L (3.5-5.1); Sodium 131 mmol/L (136-145)
[2021-02-08 09:12] LABS: Anion Gap 11.8 mEq/L (5-15); Blood Urea Nitrogen 31 mg/dl (7-17); Calcium 8.8 mg/dl (8.4-10.2); Carbon Dioxide 30 mmol/L (22.0-30.0); Creatinine Clearance Estimated 105 mL/min (50-200); Estimated Glomerular Filt Rate 56 ml/min (>60); GFR (African American) 68 ML/MIN (>60); Glucose 141 mg/dl (74-100)
[2021-02-08 10:20] LABS: Vancomycin,Trough 21.7 ug/mL (5.0-10.0)
--- NOTE | 2021-02-08 10:42 | PC.NURSE ---
1019 Received critical lab results, vanc trough of 21.7 by Areli Oneal in lab. Pts name, date of and lab result R/V.
--- NOTE | 2021-02-08 10:44 | PC.NURSE ---
1040 Spoke to Santa Garza in pharmacy, notified of critical vanc trough of 21.7. Per pharmacy, will not give dose at this time.
--- NOTE | 2021-02-08 11:01 | HMH.PHACONS ---
- Pharmacy Consult Date: 02/08/21 Time: 11:01 Referring provider: DR. COLLIER Reason for Consult:: VANCOMYCIN DOSE CHANGE Allergies and ADEs:: Allergies Allergy/AdvReac Type Severity Reaction Status Date / Time aspirin Allergy Verified 01/29/21 10:28 azithromycin Allergy Verified 01/29/21 10:28 bupropion Allergy Verified 01/29/21 10:28 [From Wellbutrin SR] Cephalosporins Allergy Verified 01/29/21 10:28 erythromycin base AdvReac Mild Verified 01/29/21 10:28 tramadol AdvReac Mild Verified 01/29/21 10:28 Home Medications:: Home Medications Medication Instructions Recorded Confirmed Type Acetaminophen [Tylenol 500mg 500 mg PO Q6HP PRN 04/17/20 02/07/21 History tablet] Azelastine HCl [Azelastine Nasal 1 spray NOSTRIL-B BID 04/17/20 02/07/21 History [place] 30mL Bottle] Bethanechol Chloride [Urecholine 25 mg PO BID 04/17/20 02/07/21 History 25mg Tablet] Ferrous Sulfate [Ferrous Sulfate 325 mg PO TID 04/17/20 02/07/21 History 325mg Tablet] Fludrocortisone Acetate [Florinef 0.1 mg PO DAILY 04/17/20 02/07/21 History 0.1mg tablet] Fluticasone Propionate [Flonase 2 spr NS DAILY 04/17/20 02/07/21 History 50mcg nasal spray 16gm] [place]-3 Acid Ethyl Esters [Lovaza] 2 gm PO BID 04/17/20 02/07/21 History Omeprazole [Omeprazole 20mg Tab] 20 mg PO DAILY 04/17/20 02/07/21 History Sucralfate 10 ml PO QID 04/17/20 02/07/21 History ondansetron HCL [Ondansetron 4mg 4 mg PO TIDP PRN 04/17/20 02/07/21 History tab*] Meclizine HCl 12.5 mg PO BIDP PRN 10/11/20 02/07/21 History atenoloL [Atenolol 25mg Tab] 25 mg PO DAILY 10/11/20 02/07/21 History Loratadine [Claritin 10mg 10 mg PO DAILY 10/12/20 02/07/21 History Tablet] Montelukast Sodium [Singulair 10mg 10 mg PO PM 10/12/20 02/07/21 History tablet] Quetiapine Fumarate [Seroquel] 300 mg PO 199910/12/20 02/07/21 History lamoTRIgine [Lamotrigine] 100 mg PO BID 10/12/20 02/07/21 History polyethylene glycoL 3350 [Miralax 17 gm PO DAILY 10/12/20 02/07/21 History 17gm Packet] gabapentin 300 mg capsule 300 mg PO TID #90 cap 10/15/20 02/07/21 Rx albuterol sulfate 90 mcg/actuation 1 inh INHALATION Q6H PRN 90 Days 12/07/20 02/07/21 Rx aerosol inhaler #8.5 g Budesonide/Formoterol Fumarate 2 puff INHALATION BID 02/06/21 02/07/21 History [Budesonide-Formoterol 160-4.5] Carboxymethylcellulose Sodium 1 drp OP BID 02/07/21 02/07/21 History [Artificial Tears] Duloxetine HCl 60 mg PO DAILY 02/07/21 02/07/21 History Linaclotide [Linzess] 290 mcg PO 199902/07/21 02/07/21 History Magnesium Hydroxide [Milk of 30 ml PO DAILYP PRN 02/07/21 02/07/21 History Magnesia 30mL Udc] Phenazopyridine HCl [Azo Urinary 190 mg PO DAILYP PRN 02/07/21 02/07/21 History Pain Relief] diazePAM [Valium 5mg tablets] 5 mg PO BID PRN 02/07/21 02/07/21 History Height: 1.68 m Weight: 112.491 kg Laboratory Results:: Laboratory Results - last 24 hr 02/07/21 09:31: Specimen Source Right radial, O2 % 40, ABG pH 7.18 L*, ABG pCO2 85.8 H, ABG pO2 86.2, ABG HCO3 31.1 H, ABG Total CO2 33.7 H, ABG O2 Saturation 96, ABG Base Excess 2.7 H, Victor Manuel Test Acceptable, Vent Rate 20, Tidal Volume bipap 03/0502/07/21 16:00: ABG Sodium 128 L, ABG Potassium 4.5, ABG Chloride 92 L, ABG Lactate 1.5, Arterial Blood Potassium 4.5, Arterial Blood Chloride 92 L 02/07/21 16:00: Specimen Source Right radial, O2 % 40, ABG pH 7.23 L*, ABG pCO2 76.6 H, ABG pO2 123.2 H, ABG HCO3 31.6 H, ABG Total CO2 34.0 H, ABG O2 Saturation 99, ABG Base Excess 4.2 H, Victor Manuel Test Acceptable, Vent Rate 28, Tidal Volume bipap 07/0302/07/21 19:30: WBC 26.7 H* D, RBC 3.47 L, Hgb 11.2 L, Hct 35.2 L, MCV 101.5 H, MCH 32.3 H, MCHC 31.8, RDW 13.3, Plt Count 284, MPV 8.0, Neut % (Auto) 96.0 H, Lymph % (Auto) 1.9 L, Sac % (Auto) 1.6 L, Eos % (Auto) 0.4, Baso % (Auto) 0.2, Neut # (Auto) 25.6 H, Lymph # (Auto) 0.5 L, Sac # (Auto) 0.4, Eos # (Auto) 0.1, Baso # (Auto) 0.1, Total Counted 100, Neutrophils % (Manual) 82 H, Band Neutroph
--- NOTE | 2021-02-08 11:37 | DIET.NUTRFU ---
Addendum entered by Heidy Guy 02/08/21 13:11: Pt able to eat some of lunch, encouraged to drink supplements. Original Note: Pt day 2 NPO dt being unable to eat dt Bipap use. Recommend nutritional supplements as tolerated when able to be taken of continuous Bipap. BG running 141, 154, 146. Pt diuresed 18# past 24h.
[2021-02-08 11:44] LABS: Basophils % 0.1 % (0.1-2.0); Eosinophils # 0.1 K/mm3 (0.0-0.4); Eosinophils % 0.4 % (0.1-12.0); Hematocrit 32.7 % (37.0-47.0); Hemoglobin 10.7 g/dL (12.2-16.2); Lymphocytes # 0.7 K/mm3 (0.7-4.5); Lymphocytes % 4.8 % (10-50); Mean Corpuscular HGB Conc 32.6 g/dL (31.8-35.4); Mean Corpuscular Hemoglobin 32.3 pg (27.0-31.2); Mean Corpuscular Volume 98.9 fl (81-99); Mean Platelet Volume 8.4 fl (7.4-10.4); Monocytes # 0.5 K/mm3 (0.1-1.0); Monocytes % 3.2 % (1.7-9.3); Neutrophils # 13.8 K/mm3 (1.8-7.8); Neutrophils % 91.4 % (37.0-80.0); Platelet Count 345 K/mm3 (142-424); Red Cell Distribution Width 13.2 % (11.5-17.5); White Blood Count 15.1 K/mm3 (4.8-10.8)
[2021-02-08 11:52] LABS: MANUAL DIFFERENTIAL MANUAL DIFFERENTIAL (MANUAL DIFF)
[2021-02-08 12:02] LABS: Hypochromasia 1+; Lymphocytes % 3 % (10-50); Macrocytosis 1+; Monocytes % 1 % (2-9); Neutrophils % 96 % (42-76); Platelet Estimate Normal; Total Cells Counted 100
[2021-02-08 12:09] LABS: Chloride 96 mmol/L (98-107); Potassium 5.3 mmoL/L (3.5-5.1); Sodium 130 mmol/L (136-145)
[2021-02-08 12:12] LABS: Alanine Aminotransferase 20 U/L (12-78); Albumin Level 3.5 g/dl (3.5-5.0); Albumin/Globulin Ratio 1.3 (1.1-1.8); Alkaline Phosphatase 63 U/L (38-126); Anion Gap 12.3 mEq/L (5-15); Aspartate Amino Transferase 41 U/L (14-36); Bilirubin,Total 0.6 mg/dl (0.2-1.3); Blood Urea Nitrogen 32 mg/dl (7-17); Calcium 8.7 mg/dl (8.4-10.2); Carbon Dioxide 27 mmol/L (22.0-30.0); Creatinine Clearance Estimated 105 mL/min (50-200); Estimated Glomerular Filt Rate 64 ml/min (>60); GFR (African American) 77 ML/MIN (>60); Globulin 2.6 g/dL (1.3-3.2); Glucose 127 mg/dl (74-100); Total Protein,Serum 6.1 g/dl (6.3-8.2)
--- NOTE | 2021-02-08 13:35 | HMH.PULMCON ---
*Admission Date: 02/07/21 *Reason for consult:: Acute on chronic hypoxic and hypercarbic respiratory failure *History of present illness: Ms. Molina is a 60-year-old female no significant smoking history is following in pulmonary clinic for exertional dyspnea, wheezing without diagnosis COPD and remote history of sarcoidosis presented to the hospital complaining of worsening shortness of breath and altered mentation needing noninvasive ventilation and pulmonary was called for further management. [facility] History Medical History: Reports:: Anxiety, Cancer, Depression, Diabetes Mellitus Type 2, Gastroesophageal Reflux Disease(GERD), Hypertension, Migraine Denies:: Diabetes Mellitus Type 1, MRSA, Seizures *Have you ever received a pneumonia vaccine?: Yes *Have you received a flu vaccine this season?: Yes Other Medical History: Reports: Anemia, Other Laterality Cases: Bilateral: Tonsillectomy Other Surgeries: Yes: Cholecystectomy, Colonoscopy, , Dilation and Curettage, Hysterectomy-Total, Sinus Surgery, Skin Cancer Excision, Tubal Ligation, Other Amputation: No Fractures: Yes - *Social History Smoking Status: Never smoker Alcohol Intake: never Substance Use Type: denies use *Occupational Status:: retired Housing: intermediate *Travel in the last 8 weeks: None - Psychiatric History Pschychiatric History:: Reports:: Anxiety, Depression Family Hx:: No significant family history ROS - Cons Reports chills - Eyes Reports blind spots - ENT Denies bleeding gums - Card Reports shortness of breath, Reports shortness of breath with activity - Resp Respiratory: Reports shortness of breath, Reports cough, Reports non-productive cough, Reports wheezing - GI Gastrointestingal: Denies: abdominal pain - Psych Reports abnormal sleep pattern Meds Home Medications Medication Instructions Recorded Confirmed Type Acetaminophen [Tylenol 500mg 500 mg PO Q6HP PRN 04/17/20 02/07/21 History tablet] Azelastine HCl [Azelastine Nasal 1 spray NOSTRIL-B BID 04/17/20 02/07/21 History [place] 30mL Bottle] Bethanechol Chloride [Urecholine 25 mg PO BID 04/17/20 02/07/21 History 25mg Tablet] Ferrous Sulfate [Ferrous Sulfate 325 mg PO TID 04/17/20 02/07/21 History 325mg Tablet] Fludrocortisone Acetate [Florinef 0.1 mg PO DAILY 04/17/20 02/07/21 History 0.1mg tablet] Fluticasone Propionate [Flonase 2 spr NS DAILY 04/17/20 02/07/21 History 50mcg nasal spray 16gm] [place]-3 Acid Ethyl Esters [Lovaza] 2 gm PO BID 04/17/20 02/07/21 History Omeprazole [Omeprazole 20mg Tab] 20 mg PO DAILY 04/17/20 02/07/21 History Sucralfate 10 ml PO QID 04/17/20 02/07/21 History ondansetron HCL [Ondansetron 4mg 4 mg PO TIDP PRN 04/17/20 02/07/21 History tab*] Meclizine HCl 12.5 mg PO BIDP PRN 10/11/20 02/07/21 History atenoloL [Atenolol 25mg Tab] 25 mg PO DAILY 10/11/20 02/07/21 History Loratadine [Claritin 10mg 10 mg PO DAILY 10/12/20 02/07/21 History Tablet] Montelukast Sodium [Singulair 10mg 10 mg PO PM 10/12/20 02/07/21 History tablet] Quetiapine Fumarate [Seroquel] 300 mg PO 199910/12/20 02/07/21 History lamoTRIgine [Lamotrigine] 100 mg PO BID 10/12/20 02/07/21 History polyethylene glycoL 3350 [Miralax 17 gm PO DAILY 10/12/20 02/07/21 History 17gm Packet] gabapentin 300 mg capsule 300 mg PO TID #90 cap 10/15/20 02/07/21 Rx albuterol sulfate 90 mcg/actuation 1 inh INHALATION Q6H PRN 90 Days 12/07/20 02/07/21 Rx aerosol inhaler #8.5 g Budesonide/Formoterol Fumarate 2 puff INHALATION BID 02/06/21 02/07/21 History [Budesonide-Formoterol 160-4.5] Carboxymethylcellulose Sodium 1 drp OP BID 02/07/21 02/07/21 History [Artificial Tears] Duloxetine HCl 60 mg PO DAILY 02/07/21 02/07/21 History Linaclotide [Linzess] 290 mcg PO 199902/07/21 02/07/21 History Magnesium Hydroxide [Milk of 30 ml PO DAILYP PRN 02/07/21 02/07/21 History Magnesia 30mL Udc] Phenazopyridine HCl [Azo Urinary 190 mg PO DAILYP PRN 02/07/21 09
--- NOTE | 2021-02-08 16:39 | PC.NURSE ---
RN reassessment completed. Pt has slept for most of the shift. She is tolerating 4L NC well with no c/o SOA. SaO2 93% at this time. Lung sounds are diminished. Abd soft and nontender with hypoactive BS. Pt reports poor appetite. Was able to drink ensure at lunch and attempted to eat but refused after a couple bites. F/C patent and draining at bedside. Pt had x1 episode of loose, tarry stool. Pt has repositioned herself in bed throughout the day. Oral care provided to pt several times throughout the day. Rectal temp of 98.2 noted at last VS check. Bed locked and in lowest position with side rails up x2. Call light within reach. Will continue to monitor.
--- NOTE | 2021-02-08 19:24 | HMH.ACPN2 ---
Internal Medicine - PN: Subj *Date: 02/08/21 *Time: 08:00 Exam Vital signs and Labs for Last 24 Hours: Temp Pulse Resp BP Pulse Ox 97.8 F 88 20 145/85 H 93 L 02/08/21 15:20 02/08/21 15:20 02/08/21 18:58 02/08/21 15:20 02/08/21 15:20 Laboratory Results - last 24 hr 02/07/21 19:30: WBC 26.7 H* D, RBC 3.47 L, Hgb 11.2 L, Hct 35.2 L, MCV 101.5 H, MCH 32.3 H, MCHC 31.8, RDW 13.3, Plt Count 284, MPV 8.0, Neut % (Auto) 96.0 H, Lymph % (Auto) 1.9 L, [place] % (Auto) 1.6 L, Eos % (Auto) 0.4, Baso % (Auto) 0.2, Neut # (Auto) 25.6 H, Lymph # (Auto) 0.5 L, [place] # (Auto) 0.4, Eos # (Auto) 0.1, Baso # (Auto) 0.1, Total Counted 100, Neutrophils % (Manual) 82 H, Band Neutrophils % 13.0 H, Lymphocytes % (Manual) 5 L, Platelet Estimate Normal, Hypochromasia 1+, Macrocytosis 2+ 02/07/21 20:30: Sodium 129 L, Potassium 5.2 H, Chloride 92 L, Carbon Dioxide 29, Anion Gap 13.2, BUN 26 H D, Creatinine 0.90, Estimated Creat Clear 55, Estimated GFR 64, Est GFR ( Amer) 77, Glucose 154 H, Calcium 8.7 02/08/21 06:30: Specimen Source Right radial, O2 % 40, ABG pH 7.35, ABG pCO2 55.4 H, ABG pO2 142.6 H, ABG HCO3 29.7 H, ABG Total CO2 31.4 H, ABG O2 Saturation 100, ABG Base Excess 4.0 H, Victor Manuel Test Acceptable, Vent Rate 28 02/08/21 08:54: Vancomycin Trough 21.7 H 02/08/21 08:54: Sodium 131 L, Potassium 4.8, Chloride 94 L, Carbon Dioxide 30, Anion Gap 11.8, BUN 31 H, Creatinine 1.00, Estimated Creat Clear 105, Estimated GFR 56 L, Est GFR ( Amer) 68, Glucose 141 H, Calcium 8.8 02/08/21 11:30: WBC 15.1 H D, RBC 3.30 L, Hgb 10.7 L, Hct 32.7 L, MCV 98.9, MCH 32.3 H, MCHC 32.6, RDW 13.2, Plt Count 345, MPV 8.4, Neut % (Auto) 91.4 H, Lymph % (Auto) 4.8 L, [place] % (Auto) 3.2, Eos % (Auto) 0.4, Baso % (Auto) 0.1, Neut # (Auto) 13.8 H, Lymph # (Auto) 0.7, [place] # (Auto) 0.5, Eos # (Auto) 0.1, Baso # (Auto) 0.0, Total Counted 100, Neutrophils % (Manual) 96 H, Lymphocytes % (Manual) 3 L, Monocytes % (Manual) 1 L, Platelet Estimate Normal, Hypochromasia 1+, Macrocytosis 1+ 02/08/21 11:30: Sodium 130 L, Potassium 5.3 H, Chloride 96 L, Carbon Dioxide 27, Anion Gap 12.3, BUN 32 H, Creatinine 0.90, Estimated Creat Clear 105, Estimated GFR 64, Est GFR ( Amer) 77, Glucose 127 H, Calcium 8.7, Total Bilirubin 0.6, AST 41 H D, ALT 20, Alkaline Phosphatase 63, Total Protein 6.1 L, Albumin 3.5, Globulin 2.6, Albumin/Globulin Ratio 1.3 I & O for Last 24 hours: Intake & Output 02/06/21 02/07/21 02/08/21 02/09/21 11:59 11:59 11:59 11:59 Intake Total 490 / 490 360 / 360 Output Total 700 / 700 2725 / 2725 900 / 900 Balance -700 / -700 -2235 / -2235 -540 / -540 Weight 264 lb 8.875 oz 248 lb Microbiology Reports for the Last 24 Hours: Microbiology 02/06/21 14:52 Blood Blood Culture - Preliminary NO GROWTH AFTER 48 HOURS 02/06/21 14:52 Blood Blood Culture - Preliminary NO GROWTH AFTER 48 HOURS - Constitutional no acute distress, obese - *Routine HEENT Exam Head: Present: normocephalic Eye: Present: PERRL ENT: Present: mucous membranes moist - *Routine Neck Exam Present: supple. Absent: lymphadenopathy - *Routine Respiratory Exam Present: CTA bilaterally - *Routine Cardiovascular Exam Present: RRR - *Routine Abdominal Exam Present: soft, normoactive bowel sounds. Absent: tenderness - *Routine Extremities Exam Present: edema. Absent: cyanosis, clubbing Comments: unaboot to rt lower leg - *Routine Skin Exam Present: warm. Absent: rash Comments: unaboot to rt lower leg - *Routine Neurological Exam Present: alert, oriented X3 Assessment and Plan (1) Diabetes type 2, controlled Status: Acute Qualifiers: Diabetes mellitus manager intermediate insulin use: without fdc use Diabetes mellitus complication status: with skin complications Diabetes mellitus complication detail: with other skin ulcer Qualified Code(s): E11.622 - Type 2 diabetes mellitus with othe
[2021-02-09] VITALS: BP 168/92; PULSE 85; RESP 16; TEMP 36.5; O2SAT 94
--- NOTE | 2021-02-09 03:45 | PC.NURSE ---
pt has rested well throughout this shift, pt remains alert and oriented x 3 unable to tell date or year, pt has remained on 4L NC and o2 has remained above 88%, mild crackles noted throughout, bilateral lower extremity edema continues, unna boot remains in place, mcghee catheter patent, no distress noted at this time, will continue to monitor
[2021-02-09 04:00] VITALS: BP 161/87; PULSE 79; RESP 14; TEMP 36.6; O2SAT 94
[2021-02-09 04:58] VITALS: BMI 41.2
[2021-02-09 06:28] VITALS: PULSE 84; PULSE 89; O2SAT 90
[2021-02-09 07:22] LABS: Basophils % 0.1 % (0.1-2.0); Eosinophils % 0.1 % (0.1-12.0); Hematocrit 31.6 % (37.0-47.0); Hemoglobin 10.2 g/dL (12.2-16.2); Lymphocytes # 1.2 K/mm3 (0.7-4.5); Lymphocytes % 10.7 % (10-50); Mean Corpuscular HGB Conc 32.1 g/dL (31.8-35.4); Mean Corpuscular Volume 99.7 fl (81-99); Mean Platelet Volume 7.9 fl (7.4-10.4); Monocytes # 0.7 K/mm3 (0.1-1.0); Monocytes % 6.5 % (1.7-9.3); Neutrophils # 9.2 K/mm3 (1.8-7.8); Neutrophils % 82.6 % (37.0-80.0); Platelet Count 327 K/mm3 (142-424); Red Blood Count 3.17 M/mm3 (4.20-5.40); Red Cell Distribution Width 13.4 % (11.5-17.5); White Blood Count 11.2 K/mm3 (4.8-10.8)
[2021-02-09 07:40] LABS: Blood Urea Nitrogen 28 mg/dl (7-17); Calcium 8.8 mg/dl (8.4-10.2); Carbon Dioxide 31 mmol/L (22.0-30.0); Chloride 97 mmol/L (98-107); Creatinine Clearance Estimated 55 mL/min (50-200); Estimated Glomerular Filt Rate 85 ml/min (>60); GFR (African American) 103 ML/MIN (>60); Glucose 79 mg/dl (74-100); Sodium 133 mmol/L (136-145)
[2021-02-09 08:00] VITALS: BP 158/81; PULSE 82; RESP 16; TEMP 36.9; O2SAT 92
--- NOTE | 2021-02-09 08:57 | HMH.ACPN2 ---
Internal Medicine - PN: Subj *Date: 02/09/21 *Time: 09:06 Interval history: much more alert today - near baseline - wd team at bedside Exam Vital signs and Labs for Last 24 Hours: Temp Pulse Resp BP Pulse Ox 97.9 F 89 14 161/87 H 90 L 02/09/21 04:00 02/09/21 06:28 02/09/21 04:00 02/09/21 04:00 02/09/21 06:28 Laboratory Results - last 24 hr 02/08/21 08:54: Vancomycin Trough 21.7 H 02/08/21 08:54: Sodium 131 L, Potassium 4.8, Chloride 94 L, Carbon Dioxide 30, Anion Gap 11.8, BUN 31 H, Creatinine 1.00, Estimated Creat Clear 105, Estimated GFR 56 L, Est GFR ( Amer) 68, Glucose 141 H, Calcium 8.8 02/08/21 11:30: WBC 15.1 H D, RBC 3.30 L, Hgb 10.7 L, Hct 32.7 L, MCV 98.9, MCH 32.3 H, MCHC 32.6, RDW 13.2, Plt Count 345, MPV 8.4, Neut % (Auto) 91.4 H, Lymph % (Auto) 4.8 L, [place] % (Auto) 3.2, Eos % (Auto) 0.4, Baso % (Auto) 0.1, Neut # (Auto) 13.8 H, Lymph # (Auto) 0.7, [place] # (Auto) 0.5, Eos # (Auto) 0.1, Baso # (Auto) 0.0, Total Counted 100, Neutrophils % (Manual) 96 H, Lymphocytes % (Manual) 3 L, Monocytes % (Manual) 1 L, Platelet Estimate Normal, Hypochromasia 1+, Macrocytosis 1+ 02/08/21 11:30: Sodium 130 L, Potassium 5.3 H, Chloride 96 L, Carbon Dioxide 27, Anion Gap 12.3, BUN 32 H, Creatinine 0.90, Estimated Creat Clear 105, Estimated GFR 64, Est GFR ( Amer) 77, Glucose 127 H, Calcium 8.7, Total Bilirubin 0.6, AST 41 H D, ALT 20, Alkaline Phosphatase 63, Total Protein 6.1 L, Albumin 3.5, Globulin 2.6, Albumin/Globulin Ratio 1.3 02/09/21 06:36: WBC 11.2 H D, RBC 3.17 L, Hgb 10.2 L, Hct 31.6 L, MCV 99.7 H, MCH 32.0 H, MCHC 32.1, RDW 13.4, Plt Count 327, MPV 7.9, Neut % (Auto) 82.6 H, Lymph % (Auto) 10.7, [place] % (Auto) 6.5, Eos % (Auto) 0.1, Baso % (Auto) 0.1, Neut # (Auto) 9.2 H, Lymph # (Auto) 1.2, [place] # (Auto) 0.7, Eos # (Auto) 0.0, Baso # (Auto) 0.0 02/09/21 06:36: Sodium 133 L, Potassium 4.0 D, Chloride 97 L, Carbon Dioxide 31 H, Anion Gap 9.0, BUN 28 H, Creatinine 0.70 D, Estimated Creat Clear 55, Estimated GFR 85, Est GFR ( Amer) 103 D, Glucose 79 D, Calcium 8.8 I & O for Last 24 hours: Intake & Output 02/06/21 02/07/21 02/08/21 02/09/21 11:59 11:59 11:59 11:59 Intake Total 490 / 490 360 / 360 Output Total 700 / 700 2725 / 2725 2200 / 2200 Balance -700 / -700 -2235 / -2235 -1840 / -1840 Weight 264 lb 8.875 oz 248 lb 256 lb 11.2 oz Microbiology Reports for the Last 24 Hours: Microbiology 02/06/21 14:52 Blood Blood Culture - Preliminary NO GROWTH AFTER 48 HOURS 02/06/21 14:52 Blood Blood Culture - Preliminary NO GROWTH AFTER 48 HOURS - Constitutional no acute distress, obese - *Routine HEENT Exam Head: Present: normocephalic Eye: Present: EOMI, PERRL ENT: Present: mucous membranes dry - *Routine Neck Exam Absent: JVD - *Routine Respiratory Exam Present: decreased breath sounds, prolonged expiratory phase - *Routine Cardiovascular Exam Present: RRR - *Routine Abdominal Exam Present: soft - *Routine Extremities Exam Comments: boot on lt lower leg - *Routine Skin Exam Present: intact - *Routine Neurological Exam Present: alert, CN II-XII intact - Routine Psychiatric Exam Present: cooperative Assessment and Plan (1) Diabetes type 2, controlled Status: Acute Qualifiers: 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
--- NOTE | 2021-02-09 09:04 | HMH.PTEV ---
Physical Therapy Evaluation Rehab PT IP Evaluation Start: 02/08/21 19:23 Freq: ONCE Status: Active Protocol: Document 02/09/21 08:59 PHORNE (Rec: 02/09/21 09:04 PHORNE [id number]) Subjective/History History History 60 yowf adm to [facility] with sepsis and AMS. She lives at [facility] at baseline. She has hx of B LE lymphedema and has been treated at the lymphedema clinic as an outpatient. Subjective Subjective Pt with no new c/o this am. L LE lymphedema wrap removed and L LE inspected. Rehab PT IP Eval Objective Appearance Patient Behavior Appropriate Patient Orientation Person,Place Difficulty following instructions none Speech Pattern Clear Ambulation Patient Able to Ambulate Yes Ambulation Observation IP General Gait Pattern Observation Wide Based Gait,Shuffling Step Ambulation Distance (feet) 5 Ambulation Assistive Device None Ambulation Ability Contact Guard/Hand Hold Balance Ability to Arise Able, uses arms to help Sitting Balance Steady, safe Standing Balance Steady, wide stance Dynamic Sitting Balance Ability Good Dynamic Standing Balance Ability Fair Transfers Bed Transfer Ability Contact Guard/Hand Hold Chair Transfer Ability Contact Guard/Hand Hold Sit to Stand Bed Transfer Ability Contact Guard/Hand Hold Sit to Stand Chair Transfer Ability Contact Guard/Hand Hold Rehab PT IP prob,goals,plan Problems Date of Evaluation: 02/09/21 PT IP Problems Other Rehab Potential Rehab Potential Good Plan PT Intervention Plan Transfers,Therapeutic Exercise ,Other PT Plan Frequency Daily Duration LOS Discharge Goals Bed Transfer Ability Supervision/Stand by Sit to Stand Chair Transfer Ability Supervision/Stand by Discharge Plan PT Discharge Plan Pt is currently at baseline for all mobility and is appropriate to return to [facility] once medically stable. We will follow her while she is admitted for edema control and compression wrapping. Recommend she continue outpatient lymphedema treatment once discharged. G -code Required No Eval Complexity Eval Charge Codes 20655 - Moderate Complexity
--- NOTE | 2021-02-09 09:34 | CT_ITS ---
PROCEDURE: CT ANGIO CHEST PE PROTOCOL CLINCIAL INDICATION: sob COMPARISON: CT CT CHEST WO CON from 11/27/2020 TECHNIQUE: IV Contrast: 70ML Isovue 370 Axial images obtained with sagittal and coronal reformats. All CT scans at the facility use one or more dose reduction, viz: automated exposure control, ma/kV adjustment per patient size (including targeted exams where dose is matched to indication, i.e. head), or iterative reconstruction technique. FINDINGS: HEART AND MEDIASTINAL STRUCTURES: No evidence of pulmonary embolus, aortic aneurysm, or aortic dissection.. There is a small hiatal hernia. No mediastinal or hilar mass. There are mildly prominent subcarinal mediastinal lymph nodes and small nodes in the right hilum LUNGS AND PLEURAL SPACES: There are numerous small ill-defined opacities the with scattered areas of ground-glass attenuation, atelectatic changes, and small bilateral pleural effusions. Irregular nodule once again noted in the lingula at a stevens by 7 mm. This is not significantly changed. There is space disease has progressed since the previous exam. BONY STRUCTURES: No acute bony findings. UPPER ABDOMEN: Minimal perihepatic fluid ADDITIONAL FINDINGS: No other significant abnormalities. IMPRESSION: 1. No evidence of pulmonary embolus. 2. Progression of patchy bilateral airspace disease with atelectatic changes. Covid19/atypical pneumonia is a consideration. There are small bilateral pleural effusions. 3. There are scattered small parenchymal opacities in the lung apices which may be inflammatory/infectious in nature and may be confirmed with follow-up. 4. No change in the suspicious lingular nodule. Neoplasm not excluded and follow-up is suggested Dictated by: Victor Manuel Duarte MD 02/09/2021 13:58 Victor Manuel Duarte MD in [place] 02/09/2021 13:58
[2021-02-09 09:35] VITALS: O2SAT 94
[2021-02-09 09:59] VITALS: PULSE 74; PULSE 79; O2SAT 94
--- NOTE | 2021-02-09 11:57 | PC.NURSE ---
Pt. to CT at this time.
--- NOTE | 2021-02-09 11:58 | PC.NURSE ---
Addendum entered by Monica Webb RN 02/09/21 12:00: This occurred at 11:50 Original Note: Dr. Do in room, turned off O2 and reports her O2 maintains at 98%, keep pt. at RA.
--- NOTE | 2021-02-09 12:17 | HMH.DCSUM ---
General - General Admission date:: 02/06/21 Discharge date: 02/09/21 HPI HPI: this patient was sent from [facility] with altered mental status -pt was seen in the ed- by ambulance from assisted for altered mental status. Increased somnolence today. The patient is unable to give any further history herself.pt was found to be hypothermic and in resp failure with abn abg and cxr- pt was admitted with severe sepsis with organ dysfunction on bpap and abx- Hospital Course Hospital Course: Laboratory Tests 02/06/21 02/06/21 02/06/21 14:52 14:52 14:57 WBC 6.3 RBC 3.71 L Hgb 11.6 L Hct 36.8 L MCV 99.1 H MCH 31.4 H MCHC 31.6 L RDW 13.3 Plt Count 270 MPV 7.7 Neut % (Auto) 83.1 H Lymph % (Auto) 12.9 [place] % (Auto) 2.9 Eos % (Auto) 0.6 Baso % (Auto) 0.5 Neut # (Auto) 5.2 Lymph # (Auto) 0.8 [place] # (Auto) 0.2 Eos # (Auto) 0.0 Baso # (Auto) 0.0 Total Counted Neutrophils % (Manual) Band Neutrophils % Lymphocytes % (Manual) Monocytes % (Manual) Platelet Estimate Hypochromasia Macrocytosis Specimen Source O2 % ABG pH ABG pCO2 ABG pO2 ABG HCO3 ABG Total CO2 ABG O2 Saturation ABG Base Excess Victor Manuel Test ABG Sodium ABG Potassium ABG Chloride ABG Lactate Vent Rate Tidal Volume Sodium Potassium Chloride Carbon Dioxide Anion Gap BUN Creatinine Estimated Creat Clear Estimated GFR Est GFR ( Amer) Glucose Lactate Calcium Total Bilirubin AST ALT Alkaline Phosphatase Troponin I < 0.01 Total Protein Albumin Globulin Albumin/Globulin Ratio TSH 1.55 Free T4 Index 1.7 L Thyroxine (T4) 4.8 L T3 Uptake 35 Arterial Blood Potassium Arterial Blood Chloride Urine Color Urine Appearance Urine pH Ur Specific [place] Urine Protein Urine Glucose (UA) Urine Ketones Urine Blood Urine Nitrate Urine Bilirubin Urine Urobilinogen Ur Leukocyte Esterase Urine WBC Ur Squamous Epith Cells Urine Bacteria Stool Occult Blood Vancomycin Trough SARS-CoV-2 (PCR) Influenza A Untype (PCR) Influenza Type B (PCR) 02/06/21 02/06/21 02/06/21 14:57 14:57 17:00 WBC RBC Hgb Hct MCV MCH MCHC RDW Plt Count MPV Neut % (Auto) Lymph % (Auto) [place] % (Auto) Eos % (Auto) Baso % (Auto) Neut # (Auto) Lymph # (Auto) [place] # (Auto) Eos # (Auto) Baso # (Auto) Total Counted Neutrophils % (Manual) Band Neutrophils % Lymphocytes % (Manual) Monocytes % (Manual) Platelet Estimate Hypochromasia Macrocytosis Specimen Source Right radial O2 % 4 lpm nc ABG pH 7.15 L* ABG pCO2 82.8 H ABG pO2 86.9 ABG HCO3 28.5 H ABG Total CO2 31.0 H ABG O2 Saturation 95 ABG Base Excess -0.3 Victor Manuel Test Acceptable ABG Sodium ABG Potassium ABG Chloride ABG Lactate Vent Rate Tidal Volume Sodium 127 L Potassium 4.7 Chloride 88 L Carbon Dioxide 30 Anion Gap 13.7 BUN 16 Creatinine 0.80 Estimated Creat Clear 102 Estimated GFR 73 Est GFR ( Amer) 88 Glucose 146 H Lactate 1.3 Calcium 8.9 Total Bilirubin < 0.1 L AST 27 ALT 19 Alkaline Phosphatase 87 Troponin I Total Protein 6.9 Albumin 4.3 Globulin 2.6 Albumin/Globulin Ratio 1.7 TSH Free T4 Index Thyroxine (T4) T3 Uptake Arterial Blood Potassium Arterial Blood Chloride Urine Color Urine Appearance Urine pH Ur Specific [place] Urine Protein Urine Glucose (UA) Urine Ketones Urine Blood Urine Nitrate Urine Bilirubin Urine Urobilinogen Ur Leukocyte Esterase Urine WBC Ur Squamous Epith Cells Urine Bacteria Stool Occult Blood Vancomycin
--- NOTE | 2021-02-09 13:44 | HMH.PULMPN ---
Internal Medicine - PN: Subj *Date: 02/09/21 *Time: 13:44 Interval history: No acute respiratory events overnight. Patient continued to improve. Exam - Constitutional Constitutional:: Present: no acute distress, comfortable - HENMT Exam HENMT: Present: normocephalic - Eye Exam Eyes:: Present: normal appearance both eyes and related structures - Neck Exam Neck:: Present: normal visual inspection - Respiratory Exam Respiratory:: Present: able to speak in complete sentences, no respiratory distress, decreased breath sounds - Cardiovascular Exam Cardiac:: Present: S1, S2 - GI Exam GI:: Present: soft, obese - Skin Exam Skin: Present: warm - Neurological Exam Neurological: Present: alert, awake, normal cognition - Extremities Exam Extremities: Present: no cyanosis, no clubbing - Psychiatric Exam Psychiatric: Present: anxious Assessment and Plan (1) Diabetes type 2, controlled Status: Acute Qualifiers: Diabetes mellitus 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 hoop driver insulin use: without bottom hoop driver use Diabetes mellitus complication status: with skin complications Diabetes mellitus complication detail: with other skin ulcer Qualified Code(s): E11.622 - Type 2 diabetes mellitus with other skin ulcer Category: Medical Code(s): E11.9 - Type 2 diabetes mellitus without complications (2) Pickwickian syndrome Status: Acute Category: Medical Code(s): E66.2 - Morbid (severe) obesity with alveolar hypoventilation (3) Hyponatremia Status: Acute Category: Medical Code(s): E87.1 - Hypo-osmolality and hyponatremia (4) Respiratory failure with hypercapnia Status: Acute Qualifiers: Chronicity: acute on chronic Qualified Code(s): J96.22 - Acute and chronic respiratory failure with hypercapnia Category: Medical Code(s): J96.92 - Respiratory failure, unspecified with hypercapnia (5) Severe sepsis with acute organ dysfunction Status: Acute Category: Medical Code(s): A41.9 - Sepsis, unspecified organism; R65.20 - Severe sepsis without septic shock (6) Obesity Status: Acute Qualifiers: Obesity type: due to excess calories Obesity classification: adult class 3 (BMI >= 40) Serious obesity comorbidity presence: with serious comorbidity Body mass index: BMI 40.0-44.9 Qualified Code(s): E66.01 - Morbid (severe) obesity due to excess calories; Z68.41 - Body mass index [BMI]40.0-44.9, adult Category: Medical Code(s): E66.9 - Obesity, unspecified - Assessment and plan all Dx Assessment and Plan for all problems:: #Acute on chronic hypercarbic respiratory failure: #Sleep apnea: #Mediastinal hilar lymphadenopathy: 60-year-old significant smoking history, remote history of sarcoidosis to be confirmed, history of wheezing on Symbicort inhaler presented to the hospital worsening hypoxia hypercarbic respiratory failure along with dysuria and urgency. Patient has a history of multiple urinary tract infections before. Patient x-ray questionable right lower lobe pulmonary infiltrate, otherwise normal. Initial ABG showed hypercarbic respiratory deficit including noninvasive ventilator therapy. Patient also carries a diagnosis of sleep apnea however not following a sleep physician, recently referred to Dr. Acosta she claims to be on AutoPap at 09/26. CT PE performed today, no obvious evidence of pulmonary embolism noted. Mediastinal station 7 and 4L lymphadenopathy noted. Bilateral upper lobe predominant tree-in-bud opacities and minimal groundglass opacities noted. Interstitial edema also noted concerning for volume overload. Patient successfully weaned to nasal cannula has been remained on nasal cannula and have used BiPAP during the night. Patient is morning on 6 L nasal cannula with saturations at 96%, wean to room air with saturations maintained at 92%. Patient has a poor O2 saturation waveform and strongly recommend correlating with the waveform before increasing her oxygen requirements. Plan: -Kale
--- NOTE | 2021-02-09 16:35 | PC.NURSE ---
EMS here to get pt. Nurse to room, IV removed from [facility]. Pt. tolerated well. Pt. noted to have soaked brief and bed, assistance called to help clean pt. up prior to transfer. New gown, linens, and brief in place. Pt. tolerated well.
--- NOTE | 2021-02-09 16:50 | PC.NURSE ---
Pt. left unit via stretcher accompanied by EMS.
--- NOTE | 2021-02-09 17:05 | PC.NURSE ---
Report called to Yovana at [facility]. Yovana V/Naomi.
== END 2021-02-09 16:50 | DRG 189 ==
LOC: ER 18:15 → 2ND 19:20
PROVIDERS: Internal Medicine Pulmonary Disease; Nurse Practitioner Family; Admitting Provider Internal Medicine Adolescent Medicine; Emergency Provider Emergency Medicine; PCP Emergency Medicine; Visit Provider Emergency Medicine
DX: J96.22 Acute and chronic respiratory failure with hypercapnia (principal); A41.9 Sepsis, unspecified organism; R65.20 Severe sepsis without septic shock; E66.2 Morbid (severe) obesity with alveolar hypoventilation; Z68.41 Body mass index [BMI] 40.0-44.9, adult; E87.1 Hypo-osmolality and hyponatremia; J44.9 Chronic obstructive pulmonary disease, unspecified; D86.9 Sarcoidosis, unspecified; I10 Essential (primary) hypertension; Z85.828 Personal history of other malignant neoplasm of skin; K21.9 Gastro-esophageal reflux disease without esophagitis; F32.9 Major depressive disorder, single episode, unspecified; F41.9 Anxiety disorder, unspecified; Z20.822 Contact with and (suspected) exposure to COVID-19; R68.0 Hypothermia, not associated with low environmental temperature; E11.9 Type 2 diabetes mellitus without complications
CPT/HCPCS: 36415; 70450; 71045; 71275; 80048; 80051; 80053; 80202; 81001; 82272; 82803; 83605; 84436; 84443; 84479; 84484; 85007; 85025; 87040; 93005; 94640; 94660; 97162; 99284; C9803; G0328; J1956; J3370; Q9967; U0003; U0005

== ENCOUNTER 2021-02-12 10:45 | Emergency (ER) | payer MEDICARE, MEDICAID, SELFPAY ==
[2021-02-12] VITALS (7 sets, daily range): BP systolic 130–182; BP diastolic 74–97; PULSE 62–78; RESP 16–19; TEMP 36.6; O2SAT 85–98; BMI 40.3
--- NOTE | 2021-02-12 10:52 | CT_ITS ---
PROCEDURE: CT HEAD/BRAIN WO CON CLINICAL INDICATION: HEAD INJURY COMPARISON: CT CT HEAD/BRAIN WO CON from 02/06/2021 TECHNIQUE: Axial images obtained. All CT scans at the facility use one or more dose reduction, viz: automated exposure control, ma/kV adjustment per patient size (including targeted exams where dose is matched to indication, i.e. head), or iterative reconstruction technique. FINDINGS: No midline shift, mass effect, intracranial hemorrhage, hydrocephalus, or extra-axial fluid collection is evident. The calvarium has an unremarkable appearance. No mastoid effusion. Postsurgical changes of the paranasal sinuses. There is a hematoma of the scalp in the right vertex region. IMPRESSION: No acute intracranial finding. Right-sided scalp hematoma Dictated by: Victor Manuel Duarte MD 02/12/2021 12:29 Victor Manuel Duarte MD in [facility] 02/12/2021 12:29
--- NOTE | 2021-02-12 10:53 | XR_ITS ---
PROCEDURE: XR PELVIS 1-2V CLINICAL INDICATION: FALL Posttraumatic pain COMPARISON: CR XR PELVIS 1-2V from 12/22/2020 TECHNIQUE: XR Pelvis AP View FINDINGS: No fracture or dislocation is evident. No significant degenerative change. Surgical clips are present in the pelvic region. Small metallic density noted over the right central ilium unchanged. IMPRESSION: No acute findings. Dictated by: Victor Manuel Duarte MD 02/12/2021 12:22 Victor Manuel Duarte MD in [facility] 02/12/2021 12:22
--- NOTE | 2021-02-12 10:58 | CT_ITS ---
PROCEDURE: CT CERVICAL SPINE WO CON CLINICAL INDICATION: FALL COMPARISON: CT CT CERVICAL SPINE WO CON from 12/22/[address] CERVICAL SPINE WO CON from 12/22/2020 TECHNIQUE: Axial images obtained with sagittal and coronal reformats. All CT scans at the facility use one or more dose reduction, viz: automated exposure control, ma/kV adjustment per patient size (including targeted exams where dose is matched to indication, i.e. head), or iterative reconstruction technique. Axial spiral CT scanning performed of the cervical spine beginning at the base of the skull and continuing to the upper T-spine. 3-D multiplanar reconstruction with 3-D manipulation of volumetric data set in image rendering was completed by the radiologist and/or technologist with the supervision of the radiologist on independent workstation. FINDINGS: There is good alignment. There is slight reversal of the cervical thoracic lordosis. Multilevel cervical spondylosis is noted. There is incomplete fusion of the posterior arch of C1. No acute fracture apparent. C2-C3: Unremarkable disc space. Calcified anterior longitudinal ligament. C3-C4: Degenerative disc disease with 2 mm retrolisthesis of C3. Facet and uncovertebral hypertrophy with bilateral foraminal narrowing. Mild right lateral recess narrowing from uncovertebral hypertrophy. C4-C5: Degenerative disc disease with right lateral recess and foraminal narrowing from facet and uncovertebral hypertrophy. C5-C6: Degenerative disc disease with prominent uncovertebral hypertrophy with bilateral lateral recess and foraminal narrowing slightly greater on the right with borderline canal stenosis. Prominent anterior osteophyte C6-C7: Degenerative disc disease with prominent uncovertebral hypertrophy and bilateral foraminal and lateral recess narrowing greater on the right with borderline canal stenosis. C7-T1: Unremarkable. Chronic changes in the lung apices with mosaic attenuation which may be seen with COPD. IMPRESSION: No acute fracture. Multilevel cervical spondylosis as detailed above. Dictated by: Victor Manuel Duarte MD 02/12/2021 12:35 Victor Manuel Duarte MD in [facility] 02/12/2021 12:35
--- NOTE | 2021-02-12 11:09 | HMH.EDFALL ---
ED Disposition Clinical Impression: Head contusion Qualifiers: Encounter type: initial encounter Contusion of head detail: scalp Qualified Code(s): S00.03XA - Contusion of scalp, initial encounter Fall Qualifiers: Encounter type: initial encounter Qualified Code(s): W19.XXXA - Unspecified fall, initial encounter Disposition: Home, Self-Care Condition on Discharge: Good Instructions: How to Prevent Falls Additional Instructions: see pcp for follow up Referrals: Casimiro Barraza MD [Primary Care Provider] - - Critical Care Critical Care Time: No Attestation: On 02/12/21, the high probability of a clinically significant, sudden or life threatening deterioration of the following system(s) required my full and direct attention, intervention and personal management. The time I documented below is in addition to time spent performing reported procedures but includes the following listed in this critical care notation. Medical Decision Making - Medical Records Medical records reviewed: Yes: I reviewed the patient's medical records. - Addison Inquiry Pt receiving controlled substance: No Vital Signs: 02/12/21 10:46 02/12/21 11:22 Temperature 98 F Temperature Source Oral Pulse Rate 69 Pulse Rate [Radial] 71 Respiratory Rate 19 18 Blood Pressure 132/88 Blood Pressure [Right Arm] 182/97 H Blood Pressure Mean [Right Arm] 125 Blood Pressure Position [Right Arm] Sitting 02 Sat by Pulse Oximetry 98 95 Oxygen Delivery Method Room Air - Lab Data Lab results reviewed: Yes: I reviewed the patient's lab results. - Radiology Data #1 Image(s): Pelvis Image Reviewed: Yes I have reviewed radiologist's interpretation Preliminary Findings: Normal/NAD - CT Data CT Scan: Head, C-Spine Time Received: 13:[address] Reviewed: Yes: I have viewed the radiologist's interpretation Preliminary Findings: No Fracture Seen Medical Decision Narrative: stable exam and xrays - will resume prev orders Fall HPI - General Chief Complaint: Fall Stated Complaint: FALL Time Seen by Provider: 02/12/21 11:00 Mode of Arrival: EMS Source of Information: Patient, EMS, Medical Record Limitations: Physical Limitations Description of Symptoms (Recalled from ER Triage Doc. by RN): TO ED PER [facility] PT GETTING OUT OF BED SLIPPED FELL HITTING BACK OF HEAD ON FLOOR. PT C/O PAIN AND SWELLING. PT DENIES ANY LOC, NAUSEA OR VOMITING. PT STATES SHE WAS ABLE TO GET UP OFF THE FLOOR BYSELF - History of Present Illness HPI Narrative: fell at [facility] with head injury complaint: fall Onset (ago): hour(s) Fall from: out of bed Fall witnessed: no [facility] Loss of consciousness: none Prolonged down time: no Symptoms prior to fall: none Context: tripped/slipped Location of injury: head Severity: moderate Associated symptoms (after fall): headache - Related Data Home Medications Medication Instructions Recorded Confirmed Acetaminophen [Tylenol 500mg 500 mg PO Q6HP PRN 04/17/20 02/07/21 tablet] Azelastine HCl [Azelastine Nasal 1 spray NOSTRIL-B BID 04/17/20 02/07/21 [place] 30mL Bottle] Bethanechol Chloride [Urecholine 25 mg PO BID 04/17/20 02/07/21 25mg Tablet] Ferrous Sulfate [Ferrous Sulfate 325 mg PO TID 04/17/20 02/07/21 325mg Tablet] Fludrocortisone Acetate [Florinef 0.1 mg PO DAILY 04/17/20 02/07/21 0.1mg tablet] Fluticasone Propionate [Flonase 2 spr NS DAILY 04/17/20 02/07/21 50mcg nasal spray 16gm] [place]-3 Acid Ethyl Esters [Lovaza] 2 gm PO BID 04/17/20 02/07/21 Omeprazole [Omeprazole 20mg Tab] 20 mg PO DAILY 04/17/20 02/07/21 Sucralfate 10 ml PO QID 04/17/20 02/07/21 ondansetron HCL [Ondansetron 4mg 4 mg PO TIDP PRN 04/17/20 02/07/21 tab*] Meclizine HCl 12.5 mg PO BIDP PRN 10/11/20 02/07/21 atenoloL [Atenolol 25mg Tab] 25 mg PO DAILY 10/11/20 02/07/21 Loratadine [Claritin 10mg 10 mg PO DAILY 10/12/20 02/07/21 Tablet] Montelukast Sodium [Singulair 10mg 10 mg P
--- NOTE | 2021-02-12 12:07 | PC.NURSE ---
pt return from CT
--- NOTE | 2021-02-12 15:25 | PC.NURSE ---
[facility] here to return pt to [facility]
--- NOTE | 2021-02-12 15:27 | PC.NURSE ---
pt given ice pack for her head at this time
== END 2021-02-12 15:33 | disposition home or self-care (01) ==
PROVIDERS: Emergency Provider Emergency Medicine; PCP Emergency Medicine
DX: S00.03XA Contusion of scalp, initial encounter (principal); W06.XXXA Fall from bed, initial encounter; Y92.129 Unspecified place in nursing home as the place of occurrence of the external cause; F41.8 Other specified anxiety disorders; E11.9 Type 2 diabetes mellitus without complications; K21.9 Gastro-esophageal reflux disease without esophagitis; I10 Essential (primary) hypertension; Z79.899 Other long term (current) drug therapy
CPT/HCPCS: 70450; 72125; 72170; 99282

== ENCOUNTER → 2021-02-19 18:47 | Outpatient (CLI) | payer MEDICARE, MEDICAID, SELFPAY ==
[2021-02-19 20:22] LABS: Occult Blood,Stool Negative (Negative)
== END ==
PROVIDERS: Visit Provider Emergency Medicine
DX: R19.5 Other fecal abnormalities (principal)
CPT/HCPCS: 82272; G0328

== ENCOUNTER 2021-02-20 00:54 | Emergency (ER) | payer MEDICARE, MEDICAID, SELFPAY ==
[2021-02-20] VITALS (9 sets, daily range): BP systolic 98–148; BP diastolic 58–81; PULSE 60–87; RESP 12–20; TEMP 35.9–36.6; O2SAT 90–94; BMI 41.5
--- NOTE | 2021-02-20 00:51 | ECG_ITS ---
APPROVED REPORT Exam: Resting ECG HR:55 bpm ECG Measurements Heart Rate [address] 164 P 33 QRSd 104 QRS 45 QT 438 T 58 QTc 419 Conclusion Sinus bradycardia with sinus arrhythmia Otherwise normal ECG Electronically signed by : Francis Magdaleno MD 02/20/2021 09:45:32
--- NOTE | 2021-02-20 01:44 | HMH.EDNVD ---
ED Disposition Clinical Impression: LANCE (obstructive sleep apnea) UTI (urinary tract infection) Qualifiers: Urinary tract infection type: site unspecified Hematuria presence: without hematuria Qualified Code(s): N39.0 - Urinary tract infection, site not specified Obesity Qualifiers: Obesity type: due to excess calories Obesity classification: adult class 3 (BMI >= 40) Serious obesity comorbidity presence: with serious comorbidity Body mass index: BMI 40.0-44.9 Qualified Code(s): E66.01 - Morbid (severe) obesity due to excess calories; Z68.41 - Body mass index [BMI] 40.0-44.9, adult Anemia Qualifiers: Anemia type: unspecified type Qualified Code(s): D64.9 - Anemia, unspecified Disposition: Home, Self-Care Condition on Discharge: Good Instructions: DI for Urinary Tract Infection (UTI) Additional Instructions: fluids and see pcp for follow up Prescriptions: Cefdinir [Omnicef 300mg Capsule] 300 mg PO BID #14 cap Transmission Status: Pending to [facility] Referrals: Casimiro Barraza MD [Primary Care Provider] - - Critical Care Critical Care Time: No Attestation: On 02/20/21, the high probability of a clinically significant, sudden or life threatening deterioration of the following system(s) required my full and direct attention, intervention and personal management. The time I documented below is in addition to time spent performing reported procedures but includes the following listed in this critical care notation. Medical Decision Making - Medical Records Medical records reviewed: Yes: I reviewed the patient's medical records. - Addison Inquiry Pt receiving controlled substance: No Vital Signs: 02/20/21 00:54 02/20/21 02:30 02/20/21 03:02 Temperature 96.6 F L Temperature Source Rectal Pulse Rate 64 61 Pulse Rate [Right] 87 Respiratory Rate 20 12 12 Blood Pressure 101/59 L 107/65 L Blood Pressure [Right Arm] 120/70 Blood Pressure Mean [Right Arm] 86 Blood Pressure Source [Right Arm] Automatic Cuff Blood Pressure Position [Right Arm] Sitting 02 Sat by Pulse Oximetry 94 L 92 L 93 L Oxygen Delivery Method Room Air 02/20/21 03:30 Temperature Temperature Source Pulse Rate 67 Pulse Rate [Right] Respiratory Rate 15 Blood Pressure 133/58 L Blood Pressure [Right Arm] Blood Pressure Mean [Right Arm] Blood Pressure Source [Right Arm] Blood Pressure Position [Right Arm] 02 Sat by Pulse Oximetry 90 L Oxygen Delivery Method - Lab Data Lab results reviewed: Yes: I reviewed the patient's lab results. Lab Results 02/20/21 02:05: Urine Color Dk yellow, Urine Appearance Cloudy, Urine pH 6.0, Ur Specific [place] <= 1.005, Urine Protein Trace, Urine Glucose (UA) Negative, Urine Ketones Negative, Urine Blood 1+, Urine Nitrate Positive, Urine Bilirubin Negative, Urine Urobilinogen 0.2, Ur Leukocyte Esterase 3+ A, Urine RBC 5-10, Urine WBC Tntc, Hyaline Casts 5-10 02/20/21 02:05: Stool Occult Blood Negative 02/20/21 02:15: WBC 19.5 H, RBC 3.34 L, Hgb 10.6 L, Hct 33.6 L, MCV 100.7 H, MCH 31.8 H, MCHC 31.6 L, RDW 13.5, Plt Count 296, MPV 7.6, Neut % (Auto) 93.2 H, Lymph % (Auto) 2.4 L, [place] % (Auto) 3.3, Eos % (Auto) 0.8, Baso % (Auto) 0.2, Neut # (Auto) 18.2 H, Lymph # (Auto) 0.5 L, [place] # (Auto) 0.7, Eos # (Auto) 0.2, Baso # (Auto) 0.1, Total Counted 100, Neutrophils % (Manual) 84 H, Band Neutrophils % 11.0 H, Lymphocytes % (Manual) 4 L, Monocytes % (Manual) 1 L, Platelet Estimate Normal, Hypochromasia 1+, Macrocytosis 2+ 02/20/21 02:15: Sodium 128 L, Potassium 4.8, Chloride 97 L, Carbon Dioxide 26, Anion Gap 9.8, BUN 19 H, Creatinine 0.70, Estimated Creat Clear 53, Estimated GFR 85, Est GFR ( Amer) 103, Glucose 109 H, Calcium 8.6, Total Bilirubin 0.4, AST 39 H, ALT 26, Alkaline Phosphatase 62, Total Protein 5.6 L, Albumin 3.2 L, Globulin 2.4, Albumin/Globulin Ratio 1.3 Result diagrams: 02/20/21 02:15 02/20/21 02:15 Orders (Tests/Meds): ORDERS Categ
--- NOTE | 2021-02-20 02:22 | PC.NURSE ---
PT was difficult stick. Myself and SherryRN at bedside for extended period of time attempting IV access with no success. Dr. Barraza advised we would do a central line. Obtained central line kit, at bedside assessing pt. He is her PCP and felt at this time she was baseline. MD decided to do a femoral stick to obtain blood. Blood obtained by Dr. Barraza and sent to lab
[2021-02-20 02:33] LABS: Microscopic, Urine URINE MICROSCOPIC (MICROSCOPIC)
[2021-02-20 02:33] LABS: Basophils # 0.1 K/mm3 (0-0.2); Basophils % 0.2 % (0.1-2.0); Eosinophils # 0.2 K/mm3 (0.0-0.4); Eosinophils % 0.8 % (0.1-12.0); Hematocrit 33.6 % (37.0-47.0); Hemoglobin 10.6 g/dL (12.2-16.2); Lymphocytes # 0.5 K/mm3 (0.7-4.5); Lymphocytes % 2.4 % (10-50); Mean Corpuscular HGB Conc 31.6 g/dL (31.8-35.4); Mean Corpuscular Hemoglobin 31.8 pg (27.0-31.2); Mean Corpuscular Volume 100.7 fl (81-99); Mean Platelet Volume 7.6 fl (7.4-10.4); Monocytes # 0.7 K/mm3 (0.1-1.0); Monocytes % 3.3 % (1.7-9.3); Neutrophils # 18.2 K/mm3 (1.8-7.8); Neutrophils % 93.2 % (37.0-80.0); Platelet Count 296 K/mm3 (142-424); Red Blood Count 3.34 M/mm3 (4.20-5.40); Red Cell Distribution Width 13.5 % (11.5-17.5); White Blood Count 19.5 K/mm3 (4.8-10.8)
[2021-02-20 02:36] LABS: Appearance,Urine CLOUDY (Clear); Bilirubin,Urine Negative (Negative); Blood, Urine 1+ (Negative); Color,Urine DK YELLOW (Yellow); Glucose,Urine (UA) Negative (Negative); Ketones,Urine Negative (Negative); Leukocyte Esterase,Urine 3+ (Negative); Nitrate,Urine POSITIVE (Negative); Protein,Urine TRACE (Negative); Specific Gravity, Urine <= 1.005 (1.005-1.030); Urobilinogen,Urine 0.2 EU/dl (0.2)
[2021-02-20 02:38] LABS: Occult Blood,Stool Negative (Negative)
[2021-02-20 02:40] LABS: WBC,Urine TNTC #/hpf (0-3)
[2021-02-20 02:40] LABS: Alanine Aminotransferase 26 U/L (12-78); Albumin Level 3.2 g/dl (3.5-5.0); Albumin/Globulin Ratio 1.3 (1.1-1.8); Alkaline Phosphatase 62 U/L (38-126); Anion Gap 9.8 mEq/L (5-15); Aspartate Amino Transferase 39 U/L (14-36); Bilirubin,Total 0.4 mg/dl (0.2-1.3); Blood Urea Nitrogen 19 mg/dl (7-17); Calcium 8.6 mg/dl (8.4-10.2); Carbon Dioxide 26 mmol/L (22.0-30.0); Chloride 97 mmol/L (98-107); Creatinine Clearance Estimated 53 mL/min (50-200); Estimated Glomerular Filt Rate 85 ml/min (>60); GFR (African American) 103 ML/MIN (>60); Globulin 2.4 g/dL (1.3-3.2); Glucose 109 mg/dl (74-100); MANUAL DIFFERENTIAL MANUAL DIFFERENTIAL (MANUAL DIFF); Potassium 4.8 mmoL/L (3.5-5.1); Sodium 128 mmol/L (136-145); Total Protein,Serum 5.6 g/dl (6.3-8.2)
[2021-02-20 03:14] LABS: Lymphocytes % 4 % (10-50); Macrocytosis 2+; Monocytes % 1 % (2-9); Neutrophils % 84 % (42-76); Platelet Estimate Normal; Total Cells Counted 100
[2021-02-20 03:15] LABS: Hypochromasia 1+
--- NOTE | 2021-02-20 04:05 | PC.NURSE ---
Called report to [facility] and notified Jennifer
[2021-02-20 09:25] LABS: Coronavirus 19, PCR Not Detected (NotDetected); Influenza A, PCR Not Detected (NotDetected); Influenza B, PCR Not Detected (NotDetected)
== END 2021-02-20 06:29 | disposition home or self-care (01) ==
PROVIDERS: Emergency Provider Emergency Medicine; PCP Emergency Medicine
DX: G47.33 Obstructive sleep apnea (adult) (pediatric) (principal); N39.0 Urinary tract infection, site not specified; E66.01 Morbid (severe) obesity due to excess calories; Z68.41 Body mass index [BMI] 40.0-44.9, adult; D64.9 Anemia, unspecified; Z79.899 Other long term (current) drug therapy; Z88.6 Allergy status to analgesic agent; Z88.1 Allergy status to other antibiotic agents
CPT/HCPCS: 80053; 81001; 82272; 85007; 85025; 87086; 87088; 87186; 93005; 96372; 99283; C9803; G0328; U0003; U0005

== ENCOUNTER 2021-02-23 11:00 | Outpatient (RCR) | payer MEDICARE, MEDICAID, SELFPAY ==
--- NOTE | 2020-12-09 10:37 | HMH.PTOPWND ---
Rehab Outpt Wound Evaluation Rehab OP Wound Evaluation Start: 12/09/20 10:15 Freq: Status: Active Protocol: Document 12/09/20 10:15 CHELSEA (Rec: 12/09/20 10:37 PHORJESUS [id number]) Electronically Signed By Sawyer West, PT 12/09/20 10:15 Subjective/History History History Pt is 60 yowf who presents with c/o B LE edema, L worse than R, x many years. My leg has been swollen ever since I was born. She reports no c/o pain in the legs but does report intermittent numbness/ tingling. She reports poor balance and frequent falls as well. She reports recent fall with L patella fx. PMH: L TKA, HTN. Subjective Subjective Pt with no c/o at this time. Lymphedema Eval Classification of Lymphedema Primary Lymphedema Yes Stemmer's sign Stemmer's Sign yes Stage of Lymphedema Lymphedema stages Stage III (Non-pitting, fibrosis and sclerosis, skin changes) Skin Changes Dry Skin Yes Skin Folds Yes Hyperkeratosis Yes Papillomatosis Yes Redness Yes Brittle Uneven Nails Yes Discoloration of Skin Yes [place] Yes Other Changes Yes Affected Extremities Areas Affected by Lymphedema/Edema Right Lower Extremity,Left Lower Extremity Manual Lymphatic Drainage Treatment Area MLD Treatment Area Right Lower Extremity,Left Lower Extremity Wound Problems/Impairments Impairments Problems/Impairmments Palpation Tenderness,Impaired Range of Motion,Impaired Strength,Impaired Endurance, Impaired Gait Pattern,Impaired Walking,Impaired Standing, Impaired Balance,Increased Edema,Lymphedema Present, Impaired Self Care/Self Management Prognosis Rehab Potential Good Clinical Impression Consistent with Diagnosis Yes Short Term Goals Number of Weeks 4 Increase Ability to Stand Yes Decrease Edema Yes Patient to Understand Lymphedema Yes Treatment and Exercises Decrease Girth Measurments by (cm) Yes: by 10 cm
--- NOTE | 2021-01-07 15:35 | HMH.RHREAS ---
Rehab Reassessment Rehab OP Re-assessment Start: 01/07/21 15:29 Freq: Status: Active Protocol: Document 01/07/21 15:31 CHELSEA (Rec: 01/07/21 15:35 CHELSEA [id number]) Electronically Signed By Sawyer Wets, PT 01/07/21 15:31 Rehab Re-assessment Subjective Subjective Pt reports she feels better overall, less tenderness to palpation. Objective Objective Notes Circumferential measurements: R LE total 329.3 cm which is + 0.1 cm since IE. L LE total is 353.0 cm which is +0.4 cm since IE. Assessment Progress Assessment Progressing as Expected Assessment Notes Decreased tenderness to palpation throughout B lower legs. Continues to have increased 2+ pitting edema and some fibrotic edema. Patient goals met ST,2,[address] LT,2,3,4,5,6 Revised Goals none Plan Plan Continue per initial POC. Frequency of Therapy 2 x/wk Duration of therapy 8 wks Time and Billing Re-Eval Time 15 Re-Eval Billing Units 0 PHYSICIAN CERTIFICATION: I certify the specified therapy services for Johanny Molina are required, authorized, and reviewed every 30 days.
--- NOTE | 2021-02-04 11:09 | HMH.RHREAS ---
Rehab Reassessment Rehab OP Re-assessment Start: 01/07/21 15:29 Freq: Status: Active Protocol: Document 02/04/21 11:05 CHELSEA (Rec: 02/04/21 11:09 CHELSEA [id number]) Electronically Signed By Sawyer West, PT 02/04/21 11:05 Rehab Re-assessment Subjective Subjective Pt reports she feels better, but wants her feet to be less swollen. Objective Objective Notes B LE with fibrotic edema noted with palpation throughout the lower legs. R LE 1+ pitting edema in addidtion to fibrotic edema this date. R LE with several small areas of excoriation noted anteriorly to lower leg. Assessment Progress Assessment Progressing as Expected Assessment Notes L LE much improved with lymphedema wrapping. B feet have shown decrease in edema, but need further reduction. Less tenderness to palpation B . Patient goals met ST,2,3,4 Goals Not Met LT,2,3,4,5,6 Revised Goals none Plan Plan Continue per initial POC. Frequency of Therapy 2 x/wk Duration of therapy 8 wks Time and Billing Re-Eval Time 15 Re-Eval Billing Units 0 PHYSICIAN CERTIFICATION: I certify the specified therapy services for Johanny Molina are required, authorized, and reviewed every 30 days.
== END 2021-02-23 12:00 | disposition home or self-care (01) ==
LOC: PT 11:00
PROVIDERS: PCP Emergency Medicine; Visit Provider Podiatrist
DX: I89.0 Lymphedema, not elsewhere classified (principal)
CPT/HCPCS: 97140; 97162; 97164; 97760

== ENCOUNTER 2021-03-13 12:40 | Inpatient (IN) | payer MEDICARE, MEDICAID, SELFPAY ==
[2021-03-13] VITALS (13 sets, daily range): BP systolic 98–151; BP diastolic 45–82; PULSE 62–79; RESP 12–19; TEMP 36.6–37; O2SAT 87–98; BMI 42.0; BMI 42.2; BMI 41.9
--- NOTE | 2021-03-13 13:00 | XR_ITS ---
PROCEDURE INFORMATION: Exam: XR Chest Exam date and time: 03/13/2021 1:00 PM Age: 60 years old Clinical indication: Shortness of breath; Additional info: SOB TECHNIQUE: Imaging protocol: XR of the chest. Views: 1 view. COMPARISON: CR XR CHEST PORTABLE 02/07/2021 11:35 AM FINDINGS: Lungs: Increased pulmonary vascular congestion. No focal consolidation. Pleural spaces: Unremarkable. No pleural effusion. No pneumothorax. Heart/Mediastinum: Stable cardiomegaly. Bones/joints: Unremarkable. IMPRESSION: Increased pulmonary vascular congestion.
--- NOTE | 2021-03-13 13:28 | HMH.EDSOB ---
ED Disposition Clinical Impression: Community acquired pneumonia Qualifiers: Laterality: unspecified laterality Qualified Code(s): J18.9 - Pneumonia, unspecified organism Disposition: Admitted As Inpatient Condition on Discharge: Fair - Critical Care Critical Care Time: No Attestation: On 03/13/21, the high probability of a clinically significant, sudden or life threatening deterioration of the following system(s) required my full and direct attention, intervention and personal management. The time I documented below is in addition to time spent performing reported procedures but includes the following listed in this critical care notation. Medical Decision Making - [place] Inquiry Pt receiving controlled substance: No Vital Signs: 03/13/21 12:52 03/13/21 14:21 Temperature 98.6 F Temperature Source Oral Pulse Rate [Right Radial] 69 Respiratory Rate 19 Blood Pressure [Right Radial Artery] 143/79 H Blood Pressure Mean [Right Radial Artery] 100 Blood Pressure Source [Right Radial Artery] Automatic Cuff Blood Pressure Position [Right Radial Artery] Supine 02 Sat by Pulse Oximetry 98 Oxygen Delivery Method Non-Rebreather Nasal Cannula Oxygen Flow Rate (LPM) 6 - Lab Data Lab Results 03/13/21 13:01: VBG pH 7.42 H, VBG pCO2 43.8, VBG pO2 151.2 H, VBG HCO3 27.6, VBG Total CO2 29.0 H, VBG O2 Saturation 99.8 H, VBG Base Excess 3.1 H 03/13/21 13:11: WBC 6.8, RBC 2.80 L, Hgb 9.1 L, Hct 30.4 L, MCV 108.9 H, MCH 32.5 H, MCHC 29.8 L, RDW 14.7, Plt Count 336, MPV 7.9, Neut % (Auto) 81.0 H, Lymph % (Auto) 11.0, [place] % (Auto) 6.5, Eos % (Auto) 1.0, Baso % (Auto) 0.5, Neut # (Auto) 5.5, Lymph # (Auto) 0.7, [place] # (Auto) 0.4, Eos # (Auto) 0.1, Baso # (Auto) 0.0 03/13/21 13:11: Sodium 138, Potassium 4.8, Chloride 102, Carbon Dioxide 32 H, Anion Gap 8.8, BUN 9, Creatinine 0.60, Estimated Creat Clear 57, Estimated GFR 102, Est GFR ( Amer) 123, Glucose 92, Calcium 8.9, Total Bilirubin 0.7, AST 35, ALT 16, Alkaline Phosphatase 82, Troponin I < 0.01, Total Protein 6.0 L, Albumin 3.3 L, Globulin 2.7, Albumin/Globulin Ratio 1.2 03/13/21 13:11: Lactate 0.7 Result diagrams: 03/13/21 13:11 03/13/21 13:11 Orders (Tests/Meds): ED MEDICATIONS Generic Name Dose Route Start Last Admin Trade Name Freq PRN Reason Stop Dose Admin Piperacillin Sod/Tazobactam 50 mls @ 100 mls/hr 03/13/21 13:45 03/13/21 13:56 Sod 3.375 gm/ Sodium Chloride IV 03/27/21 13:44 100 mls/hr Q8H OLGA Administration Vancomycin/PEG/NADA/Lysine/Water 1.75 gm in 350 mls @ 175 mls/hr 03/13/21 23:00 Vancomycin 1.75gm/350ml (Peg) Premix IV 03/27/21 22:59 Q12H OLGA Discontinued Medications Generic Name Dose Route Start Last Admin Trade Name Freq PRN Reason Stop Dose Admin Sodium Chloride 500 mls @ 999 mls/hr 03/13/21 13:45 Sod Chlor 0.9% 1000ml Bag IV 03/13/21 14:15 .Q31M OLGA Vancomycin HCl 1,750 mg/ 250 mls @ 125 mls/hr 03/13/21 14:00 Sodium Chloride IV 03/13/21 15:59 ONCE ONE Miscellaneous 1 each 03/13/21 13:45 03/13/21 13:49 Vancomycin Consult Request * 04/12/21 13:44 1 each CONSULT PHARMACY OLGA Administration ORDERS Category Date Time Status Rapid PCR Covid and Flu A/B Stat Lab 03/13/21 15:32 Received Troponin I Q3H Lab 03/13/21 16:15 Ordered Troponin I Q3H Lab 03/13/21 19:15 Ordered Blood Culture Stat Micro 03/13/21 13:05 Received Medical Decision Narrative: In summary, the patient is a 60-year-old female with chronic debility coming from shelter for evaluation of cough, fever and sputum production. She is in no acute distress, hypoxic in the 80s on room air, hemodynamically stable and afebrile. Physical exam demonstrates comfortable appearing disoriented female with rhonchorous breath sounds in left lower lung field, soft and nontender abdomen, normal work of breathing, erythema over the left anterior rodriguez, neurovascular intact. Differential diagnosis includes but is
--- NOTE | 2021-03-13 13:31 | PC.NURSE ---
lab at bedside
[2021-03-13 13:33] LABS: Basophils % 0.5 % (0.1-2.0); Eosinophils # 0.1 K/mm3 (0.0-0.4); Hematocrit 30.4 % (37.0-47.0); Hemoglobin 9.1 g/dL (12.2-16.2); Lymphocytes # 0.7 K/mm3 (0.7-4.5); Mean Corpuscular HGB Conc 29.8 g/dL (31.8-35.4); Mean Corpuscular Hemoglobin 32.5 pg (27.0-31.2); Mean Corpuscular Volume 108.9 fl (81-99); Mean Platelet Volume 7.9 fl (7.4-10.4); Monocytes # 0.4 K/mm3 (0.1-1.0); Monocytes % 6.5 % (1.7-9.3); Neutrophils # 5.5 K/mm3 (1.8-7.8); Platelet Count 336 K/mm3 (142-424); Red Cell Distribution Width 14.7 % (11.5-17.5); White Blood Count 6.8 K/mm3 (4.8-10.8)
--- NOTE | 2021-03-13 13:39 | CT_ITS ---
PROCEDURE INFORMATION: Exam: CT Head Without Contrast Exam date and time: 03/13/2021 1:39 PM Age: 60 years old Clinical indication: Altered mental status/memory loss; Other: Encephalopathy TECHNIQUE: Imaging protocol: Computed tomography of the head without contrast. Radiation optimization: All CT scans at this facility use at least one of these dose optimization techniques: automated exposure control; mA and/or kV adjustment per patient size (includes targeted exams where dose is matched to clinical indication); or iterative reconstruction. COMPARISON: CT HEAD/BRAIN WO CON 02/12/2021 11:45 AM FINDINGS: Brain: Normal. No hemorrhage. Unremarkable white matter. No mass effect. Cerebral ventricles: No ventriculomegaly. Paranasal sinuses: Visualized sinuses are unremarkable. No fluid levels. Mastoid air cells: Visualized mastoid air cells are well aerated. Bones/joints: Unremarkable. No acute fracture. Soft tissues: Unremarkable. IMPRESSION: No acute intracranial abnormality.
[2021-03-13 13:42] LABS: Chloride 102 mmol/L (98-107)
[2021-03-13 13:43] LABS: Potassium 4.8 mmoL/L (3.5-5.1); Sodium 138 mmol/L (136-145)
[2021-03-13 13:45] LABS: Alanine Aminotransferase 16 U/L (12-78); Aspartate Amino Transferase 35 U/L (14-36); Blood Urea Nitrogen 9 mg/dl (7-17); Creatinine Clearance Estimated 57 mL/min (50-200); Estimated Glomerular Filt Rate 102 ml/min (>60); GFR (African American) 123 ML/MIN (>60)
[2021-03-13 13:46] LABS: Albumin Level 3.3 g/dl (3.5-5.0); Albumin/Globulin Ratio 1.2 (1.1-1.8); Alkaline Phosphatase 82 U/L (38-126); Anion Gap 8.8 mEq/L (5-15); Bilirubin,Total 0.7 mg/dl (0.2-1.3); Calcium 8.9 mg/dl (8.4-10.2); Carbon Dioxide 32 mmol/L (22.0-30.0); Globulin 2.7 g/dL (1.3-3.2); Glucose 92 mg/dl (74-100)
--- NOTE | 2021-03-13 13:47 | PC.NURSE ---
Spoke with mindy from pharmacy van dosage. he is bringing it down.
[2021-03-13 13:50] LABS: Lactic Acid 0.7 mmol/L (0.7-2.1)
--- NOTE | 2021-03-13 14:07 | HMH.PHACONS ---
- Pharmacy Consult Date: 03/13/21 Time: 14:07 Referring provider: DR. LOGAN Reason for Consult:: VANCOMYCIN DOSING Allergies and ADEs:: Allergies Allergy/AdvReac Type Severity Reaction Status Date / Time aspirin Allergy Verified 03/11/21 13:10 azithromycin Allergy Verified 03/11/21 13:10 bupropion Allergy Verified 03/11/21 13:10 [From Wellbutrin SR] Cephalosporins Allergy Verified 03/11/21 13:10 erythromycin base AdvReac Mild Verified 03/11/21 13:10 tramadol AdvReac Mild Verified 03/11/21 13:10 Home Medications:: Home Medications Medication Instructions Recorded Confirmed Type Acetaminophen [Tylenol 500mg 500 mg PO Q6HP PRN 04/17/20 03/11/21 History tablet] Azelastine HCl [Azelastine Nasal 1 spray NOSTRIL-B BID 04/17/20 03/11/21 History [place] 30mL Bottle] Bethanechol Chloride [Urecholine 25 mg PO BID 04/17/20 03/11/21 History 25mg Tablet] Ferrous Sulfate [Ferrous Sulfate 325 mg PO TID 04/17/20 03/11/21 History 325mg Tablet] Fludrocortisone Acetate [Florinef 0.1 mg PO DAILY 04/17/20 03/11/21 History 0.1mg tablet] Fluticasone Propionate [Flonase 2 spr NS DAILY 04/17/20 03/11/21 History 50mcg nasal spray 16gm] [place]-3 Acid Ethyl Esters [Lovaza] 2 gm PO BID 04/17/20 03/11/21 History Omeprazole [Omeprazole 20mg Tab] 20 mg PO DAILY 04/17/20 03/11/21 History Sucralfate 10 ml PO QID 04/17/20 03/11/21 History ondansetron HCL [Ondansetron 4mg 4 mg PO TIDP PRN 04/17/20 03/11/21 History tab*] Meclizine HCl 12.5 mg PO BIDP PRN 10/11/20 03/11/21 History atenoloL [Atenolol 25mg Tab] 25 mg PO DAILY 10/11/20 03/11/21 History Loratadine [Claritin 10mg 10 mg PO DAILY 10/12/20 03/11/21 History Tablet] Montelukast Sodium [Singulair 10mg 10 mg PO PM 10/12/20 03/11/21 History tablet] Quetiapine Fumarate [Seroquel] 300 mg PO 199910/12/20 03/11/21 History lamoTRIgine [Lamotrigine] 100 mg PO BID 10/12/20 03/11/21 History polyethylene glycoL 3350 [Miralax 17 gm PO DAILY 10/12/20 03/11/21 History 17gm Packet] gabapentin 300 mg capsule 300 mg PO TID #90 cap 10/15/20 03/11/21 Rx albuterol sulfate 90 mcg/actuation 1 inh INHALATION Q6H PRN 90 Days 12/07/20 03/11/21 Rx aerosol inhaler #8.5 g Budesonide/Formoterol Fumarate 2 puff INHALATION BID 02/06/21 03/11/21 History [Budesonide-Formoterol 160-4.5] Carboxymethylcellulose Sodium 1 drp OP BID 02/07/21 03/11/21 History [Artificial Tears] Duloxetine HCl 60 mg PO DAILY 02/07/21 03/11/21 History Linaclotide [Linzess] 290 mcg PO 199902/07/21 03/11/21 History Magnesium Hydroxide [Milk of 30 ml PO DAILYP PRN 02/07/21 03/11/21 History Magnesia 30mL Udc] Phenazopyridine HCl [Azo Urinary 190 mg PO DAILYP PRN 02/07/21 03/11/21 History Pain Relief] cholecalciferol (vitamin D3) 125 mcg PO 03/02/21 03/11/21 History mcg (5,000 unit) disintegrating tablet potassium chloride 20 mEq 10 meq PO DAILY tab 03/02/21 03/11/21 History tablet,extended release(part/cryst) Height: 1.7 m Weight: 121.563 kg Laboratory Results:: Laboratory Results - last 24 hr 03/13/21 13:11: WBC 6.8, RBC 2.80 L, Hgb 9.1 L, Hct 30.4 L, MCV 108.9 H, MCH 32.5 H, MCHC 29.8 L, RDW 14.7, Plt Count 336, MPV 7.9, Neut % (Auto) 81.0 H, Lymph % (Auto) 11.0, [place] % (Auto) 6.5, Eos % (Auto) 1.0, Baso % (Auto) 0.5, Neut # (Auto) 5.5, Lymph # (Auto) 0.7, [place] # (Auto) 0.4, Eos # (Auto) 0.1, Baso # (Auto) 0.0 03/13/21 13:11: Sodium 138, Potassium 4.8, Chloride 102, Carbon Dioxide 32 H, Anion Gap 8.8, BUN 9, Creatinine 0.60, Estimated Creat Clear 57, Estimated GFR 102, Est GFR ( Amer) 123, Glucose 92, Calcium 8.9, Total Bilirubin 0.7, AST 35, ALT 16, Alkaline Phosphatase 82, Total Protein 6.0 L, Albumin 3.3 L, Globulin 2.7, Albumin/Globulin Ratio 1.2 03/13/21 13:11: Lactate 0.7 Medical History: Reports:: Anxiety, Cancer, Depression, Diabetes Mellitus Type 2, Gastroesophageal Reflux Disease(GERD), Hypertension, Migraine, Urinary Tract Infection Denies:: Dana
--- NOTE | 2021-03-13 14:07 | PC.NURSE ---
Pt went to Ct
[2021-03-13 14:09] LABS: Troponin I < 0.01 ng/ml (0.00-0.034)
--- NOTE | 2021-03-13 14:10 | PC.NURSE ---
Pt with rad
[2021-03-13 14:19] LABS: VBG Base Excess 3.1 mmol/L (-2.4-2.3); VBG HCO3 27.6 mmol/L (23-30); VBG Oxygen Saturation 99.8 % (50-70); VBG PCO2 43.8 mmol/L (35-51); VBG PH 7.42 mmol/L (7.31-7.41); VBG PO2 151.2 mmol/L (28-40)
--- NOTE | 2021-03-13 15:06 | PC.NURSE ---
MD speaking with PCP
[2021-03-13 15:42] LABS: Coronavirus 19, PCR Not Detected (NotDetected); Influenza A, PCR Not Detected (NotDetected); Influenza B, PCR Not Detected (NotDetected)
--- NOTE | 2021-03-13 16:20 | PC.NURSE ---
Gave report to jose angel
--- NOTE | 2021-03-13 16:29 | PC.NURSE ---
pt arrived to the floor at this time
[2021-03-13 16:57] LABS: Troponin I < 0.01 ng/ml (0.00-0.034)
--- NOTE | 2021-03-13 18:45 | HMH.HP ---
*Admission Date: 03/13/21 *Chief complaint: soa *History of present illness: 60-year-old female with c/o cough, fever and sputum production. Chandler has a past medical history of hypertension, hyperlipidemia, neurogenic bladder requiring frequent catheterization, recent urinary tract infection treated at shelter and dementia. She states that she has had 3 to 4 days of increasing cough and difficulty breathing with sputum production as well as fever. She denies any headache or vision changes, orthopnea or paroxysmal nocturnal dyspnea, abdominal pain, nausea vomiting, changes in urinary or bowel habits, no extremity swelling or pain. She recently completed a course of antibiotics for treatment of urinary tract infection. Pt is not o2 dep and is requiring o2 at 5 liters nc to maintain o2 sats. Patient admitted for pneumonia and further work up. [facility] History I have reviewed the patient's past medical history: Yes Medical History: Reports:: Anxiety, Cancer, Depression, Diabetes Mellitus Type 2, Gastroesophageal Reflux Disease(GERD), Hypertension, Migraine, Urinary Tract Infection Denies:: Diabetes Mellitus Type 1, MRSA, Seizures *Have you ever received a pneumonia vaccine?: No *Have you received a flu vaccine this season?: No Other Medical History: Reports: Anemia, Other Laterality Cases: Bilateral: Tonsillectomy Other Surgeries: Yes: Cholecystectomy, Colonoscopy, , Dilation and Curettage, Hysterectomy-Total, Sinus Surgery, Skin Cancer Excision, Tubal Ligation, Other Amputation: No Fractures: Yes - *Social History Smoking Status: Never smoker Alcohol Intake: never Substance Use Type: denies use *Occupational Status:: unemployed, disabled Housing: shelter *Travel in the last 8 weeks: None - Psychiatric History Pschychiatric History:: Reports:: Anxiety, Depression Family Hx:: No significant family history Review of Systems - Review of Systems Review of systems:: pertinent systems reviewed and negative unless documented below - Constitutional Denies body ache(s), Denies fatigue - Eyes Denies blurry vision - ENT Denies bleeding gums - *Cardiovascular Denies chest pain at rest - *Respiratory Denies chest congestion - *Gastrointestinal Denies abdominal pain - *Genitourinary Reports urinary incontinence - *Musculoskeletal Denies abnormal walking - Integumentary/Breasts Denies rash - *Neurologic Denies abnormal hearing, Denies dizziness - Psychiatric Denies anxiety - Endocrine Denies excessive sweating - Hematologic/Lymphatic Denies enlarged lymph nodes - Allergic/Immunologic Denies lip swelling Meds Home Medications Medication Instructions Recorded Confirmed Type Acetaminophen [Tylenol 500mg 500 mg PO Q6HP PRN 04/17/20 03/13/21 History tablet] Azelastine HCl [Azelastine Nasal 1 spray NOSTRIL-B BID 04/17/20 03/11/21 History [place] 30mL Bottle] Bethanechol Chloride [Urecholine 25 mg PO BID 04/17/20 03/11/21 History 25mg Tablet] Ferrous Sulfate [Ferrous Sulfate 325 mg PO TID 04/17/20 03/13/21 History 325mg Tablet] Fludrocortisone Acetate [Florinef 0.1 mg PO DAILY 04/17/20 03/13/21 History 0.1mg tablet] Fluticasone Propionate [Flonase 2 spr NS DAILY 04/17/20 03/13/21 History 50mcg nasal spray 16gm] [place]-3 Acid Ethyl Esters [Lovaza] 2 gm PO BID 04/17/20 03/13/21 History Omeprazole [Omeprazole 20mg Tab] 20 mg PO DAILY 04/17/20 03/13/21 History Sucralfate 10 ml PO QID 04/17/20 03/13/21 History ondansetron HCL [Ondansetron 4mg 4 mg PO TIDP PRN 04/17/20 03/11/21 History tab*] Meclizine HCl 12.5 mg PO BIDP PRN 10/11/20 03/13/21 History Loratadine [Claritin 10mg 10 mg PO DAILY 10/12/20 03/13/21 History Tablet] Montelukast Sodium [Singulair 10mg 10 mg PO PM 10/12/20 03/13/21 History tablet] Quetiapine Fumarate [Seroquel] 150 mg PO 2000 10/12/20 03/11/21 History lamoTRIgine [Lamotrigine] 100 mg PO BID 10/12/20 03/11/21 History polyethylene gl
[2021-03-13 19:27] LABS: Troponin I < 0.01 ng/ml (0.00-0.034)
[2021-03-13 21:08] LABS: POC Glucose,Bedside 168 (70-110)
[2021-03-13 21:35] LABS: Microscopic, Urine URINE MICROSCOPIC (MICROSCOPIC)
[2021-03-13 21:39] LABS: Appearance,Urine CLEAR (Clear); Bilirubin,Urine Negative (Negative); Blood, Urine Negative (Negative); Color,Urine DK YELLOW (Yellow); Glucose,Urine (UA) TRACE (Negative); Ketones,Urine Negative (Negative); Leukocyte Esterase,Urine TRACE (Negative); Nitrate,Urine POSITIVE (Negative); Protein,Urine 1+ (Negative)
[2021-03-13 21:43] LABS: Amorphous Sediment,Urine Trace /lpf; Bacteria,Urine Trace /lpf
[2021-03-13 21:49] LABS: POC Glucose,Bedside 78 (70-110)
--- NOTE | 2021-03-14 01:35 | PC.NURSE ---
IV infiltrated in left forearm, multiple attempts to start IV with no success. Ultrasound guided IV was started and later became infiltrated. Notified MD of no IV access at this time. stated to wait till morning to try PICC line or consult for a central line.
[2021-03-14 04:00] VITALS: BP 190/96; PULSE 68; RESP 18; TEMP 36.5; O2SAT 96
[2021-03-14 05:07] LABS: POC Glucose,Bedside 87 (70-110)
[2021-03-14 05:24] VITALS: BMI 44.6
[2021-03-14 05:57] VITALS: BP 164/84; PULSE 65
[2021-03-14 07:32] LABS: Chloride 108 mmol/L (98-107); Potassium 5.5 mmoL/L (3.5-5.1); Sodium 141 mmol/L (136-145)
[2021-03-14 07:35] LABS: Anion Gap 14.5 mEq/L (5-15); Blood Urea Nitrogen 7 mg/dl (7-17); Calcium 9.1 mg/dl (8.4-10.2); Carbon Dioxide 24 mmol/L (22.0-30.0); Creatinine Clearance Estimated 55 mL/min (50-200); Estimated Glomerular Filt Rate 102 ml/min (>60); GFR (African American) 123 ML/MIN (>60); Glucose 65 mg/dl (74-100)
[2021-03-14 07:54] VITALS: BP 184/94; PULSE 72; RESP 22; TEMP 36.4; O2SAT 96
[2021-03-14 08:45] LABS: Basophils % 0.3 % (0.1-2.0); Eosinophils # 0.1 K/mm3 (0.0-0.4); Eosinophils % 1.4 % (0.1-12.0); Hematocrit 32.8 % (37.0-47.0); Hemoglobin 9.6 g/dL (12.2-16.2); Lymphocytes # 0.9 K/mm3 (0.7-4.5); Lymphocytes % 15.1 % (10-50); Mean Corpuscular HGB Conc 29.3 g/dL (31.8-35.4); Mean Corpuscular Hemoglobin 31.7 pg (27.0-31.2); Mean Corpuscular Volume 108.1 fl (81-99); Mean Platelet Volume 8.1 fl (7.4-10.4); Monocytes # 0.4 K/mm3 (0.1-1.0); Monocytes % 6.4 % (1.7-9.3); Neutrophils # 4.3 K/mm3 (1.8-7.8); Neutrophils % 76.8 % (37.0-80.0); Platelet Count 303 K/mm3 (142-424); Red Blood Count 3.03 M/mm3 (4.20-5.40); Red Cell Distribution Width 14.2 % (11.5-17.5); White Blood Count 5.6 K/mm3 (4.8-10.8)
--- NOTE | 2021-03-14 09:37 | PC.NURSE ---
0838 Was asked to consult on pt for PICC placement. pt had been unsuccessful with ultrasound guided IV insertions this admission Attempted to assess for Brachial, cepahlic or basilic vein unable to locate r/t large amount of adipose tissue. BUE noted to be swollen and puffy in appearance. attempted to locate vein in lower arms, very few appropriate veins located r/t being small in diameter and the risk for occlusion being present. 20 gauge US iv inserted in left lower arm, blood return noted and flushed easily. primary RN was notified.
[2021-03-14 11:52] LABS: POC Glucose,Bedside 93 (70-110)
--- NOTE | 2021-03-14 12:16 | HMH.ACPN2 ---
Internal Medicine - PN: Subj *Date: 03/14/21 *Time: 09:30 Interval history: pt states she is feeling better today. Exam Vital signs and Labs for Last 24 Hours: Temp Pulse Resp BP Pulse Ox 97.6 F 72 22 184/94 H 96 03/14/21 07:54 03/14/21 07:54 03/14/21 07:54 03/14/21 07:54 03/14/21 07:54 Laboratory Results - last 24 hr 03/13/21 13:01: VBG pH 7.42 H, VBG pCO2 43.8, VBG pO2 151.2 H, VBG HCO3 27.6, VBG Total CO2 29.0 H, VBG O2 Saturation 99.8 H, VBG Base Excess 3.1 H 03/13/21 13:11: WBC 6.8, RBC 2.80 L, Hgb 9.1 L, Hct 30.4 L, MCV 108.9 H, MCH 32.5 H, MCHC 29.8 L, RDW 14.7, Plt Count 336, MPV 7.9, Neut % (Auto) 81.0 H, Lymph % (Auto) 11.0, [place] % (Auto) 6.5, Eos % (Auto) 1.0, Baso % (Auto) 0.5, Neut # (Auto) 5.5, Lymph # (Auto) 0.7, [place] # (Auto) 0.4, Eos # (Auto) 0.1, Baso # (Auto) 0.0 03/13/21 13:11: Sodium 138, Potassium 4.8, Chloride 102, Carbon Dioxide 32 H, Anion Gap 8.8, BUN 9, Creatinine 0.60, Estimated Creat Clear 57, Estimated GFR 102, Est GFR ( Amer) 123, Glucose 92, Calcium 8.9, Total Bilirubin 0.7, AST 35, ALT 16, Alkaline Phosphatase 82, Troponin I < 0.01, Total Protein 6.0 L, Albumin 3.3 L, Globulin 2.7, Albumin/Globulin Ratio 1.2 03/13/21 13:11: Lactate 0.7 03/13/21 15:32: SARS-CoV-2 (PCR) Not detected, Influenza A Untype (PCR) Not detected, Influenza Type B (PCR) Not detected 03/13/21 16:20: Troponin I < 0.01 03/13/21 16:44: POC Glucose 78 03/13/21 18:55: Troponin I < 0.01 03/13/21 20:02: POC Glucose 168 H 03/13/21 21:26: Urine Color Dk yellow, Urine Appearance Clear, Urine pH 7.0, Ur Specific [place] 1.020, Urine Protein 1+, Urine Glucose (UA) Trace, Urine Ketones Negative, Urine Blood Negative, Urine Nitrate Positive, Urine Bilirubin Negative, Urine Urobilinogen 2.0, Ur Leukocyte Esterase Trace, Urine WBC 5-10, Ur Squamous Epith Cells 5-10, Amorphous Sediment Trace, Urine Bacteria Trace 03/14/21 04:59: POC Glucose 87 03/14/21 06:52: Sodium 141, Potassium 5.5 H, Chloride 108 H, Carbon Dioxide 24, Anion Gap 14.5, BUN 7, Creatinine 0.60, Estimated Creat Clear 55, Estimated GFR 102, Est GFR ( Amer) 123, Glucose 65 L D, Calcium 9.1 03/14/21 08:38: WBC 5.6, RBC 3.03 L, Hgb 9.6 L, Hct 32.8 L, MCV 108.1 H, MCH 31.7 H, MCHC 29.3 L, RDW 14.2, Plt Count 303, MPV 8.1, Neut % (Auto) 76.8, Lymph % (Auto) 15.1, [place] % (Auto) 6.4, Eos % (Auto) 1.4, Baso % (Auto) 0.3, Neut # (Auto) 4.3, Lymph # (Auto) 0.9, [place] # (Auto) 0.4, Eos # (Auto) 0.1, Baso # (Auto) 0.0 03/14/21 11:35: POC Glucose 93 I & O for Last 24 hours: Intake & Output 03/12/21 03/13/21 03/14/21 03/15/21 11:59 11:59 11:59 11:59 Intake Total 240 / 240 Output Total 1100 / 1100 Balance -860 / -860 Weight 284 lb 1 oz - Constitutional no acute distress, obese - *Routine HEENT Exam Head: Present: normocephalic Eye: Present: PERRL ENT: Present: mucous membranes moist - *Routine Neck Exam Present: supple. Absent: lymphadenopathy - *Routine Respiratory Exam Present: CTA bilaterally - *Routine Cardiovascular Exam Present: RRR - *Routine Abdominal Exam Present: soft, normoactive bowel sounds. Absent: tenderness - *Routine Exam Comments: mcghee at bedside - *Routine Extremities Exam Absent: cyanosis, clubbing, edema - *Routine Skin Exam Present: warm. Absent: rash - *Routine Neurological Exam Present: alert, oriented X3 Assessment and Plan (1) Pneumonia Status: Acute Category: Medical Code(s): J18.9 - Pneumonia, unspecified organism (2) Diabetes type 2, controlled Status: Acute Qualifiers: Diabetes mellitus longterm insulin use: without longterm use Diabetes mellitus complication status: with skin complications Diabetes mellitus complication detail: with other skin ulcer Qualified Code(s): E11.622 - Type 2 diabetes mellitus with other skin ulcer Category: Medical Code(s): E11.9 - Type 2 diabetes mellitus without complications (3) Obesity Status: Acute Qualifiers:
[2021-03-14 16:00] VITALS: BP 174/98; PULSE 67; RESP 24; TEMP 36.8; O2SAT 99
--- NOTE | 2021-03-14 19:00 | XR_ITS ---
PROCEDURE INFORMATION: Exam: XR Chest Exam date and time: 03/14/2021 7:00 PM Age: 60 years old Clinical indication: Device placement; Other: Central line; Additional info: Central line placement TECHNIQUE: Imaging protocol: XR of the chest. Views: 1 view. COMPARISON: CR XR CHEST PORTABLE 03/13/2021 1:06 PM FINDINGS: Tubes, catheters and devices: Left-sided subclavian PICC line tip in the distal innominate region. Lungs: Bilateral lower lobe predominant infiltrates concerning for pneumonia. Pleural spaces: Mild bilateral pleural effusions. Heart/Mediastinum: Cardiomegaly. Bones/joints: Unremarkable. IMPRESSION: Left-sided subclavian PICC line tip in the distal innominate vein region.
--- NOTE | 2021-03-14 19:04 | HMH.GSCON ---
*Admission Date: 03/13/21 *Reason for consult:: Inadequate venous access *History of present illness: This is a 60-year-old female being treated for pneumonia and urinary tract infection. She has inadequate venous access. The surgical service was consulted for deep line placement. Attempts at PICC were unsuccessful. Review of Systems - Review of Systems Review of systems:: unable to obtain - *Neurologic Denies abnormal walking, Denies abnormal hearing, Denies dizziness [facility] History Medical History: Reports:: Anxiety, Cancer, Depression, Diabetes Mellitus Type 2, Gastroesophageal Reflux Disease(GERD), Hypertension, Migraine, Urinary Tract Infection Denies:: Diabetes Mellitus Type 1, MRSA, Seizures *Have you ever received a pneumonia vaccine?: No *Have you received a flu vaccine this season?: No Other Medical History: Reports: Anemia, Other Laterality Cases: Bilateral: Tonsillectomy Other Surgeries: Yes: Cholecystectomy, Colonoscopy, , Dilation and Curettage, Hysterectomy-Total, Sinus Surgery, Skin Cancer Excision, Tubal Ligation, Other Amputation: No Fractures: Yes - *Social History Smoking Status: Never smoker Alcohol Intake: never Substance Use Type: denies use *Occupational Status:: unemployed, disabled Housing: [facility] *Travel in the last 8 weeks: None - Psychiatric History Pschychiatric History:: Reports:: Anxiety, Depression Family Hx:: No significant family history Meds Home Medications Medication Instructions Recorded Confirmed Type Acetaminophen [Tylenol 500mg 500 mg PO Q6HP PRN 04/17/20 03/13/21 History tablet] Ferrous Sulfate [Ferrous Sulfate 325 mg PO TID 04/17/20 03/13/21 History 325mg Tablet] Fludrocortisone Acetate [Florinef 0.1 mg PO DAILY 04/17/20 03/13/21 History 0.1mg tablet] Fluticasone Propionate [Flonase 2 spr NS DAILY 04/17/20 03/13/21 History 50mcg nasal spray 16gm] [place]-3 Acid Ethyl Esters [Lovaza] 2 gm PO BID 04/17/20 03/13/21 History Omeprazole [Omeprazole 20mg Tab] 20 mg PO DAILY 04/17/20 03/13/21 History Sucralfate 10 ml PO QID 04/17/20 03/13/21 History ondansetron HCL [Ondansetron 4mg 4 mg PO TIDP PRN 04/17/20 03/13/21 History tab*] Meclizine HCl 12.5 mg PO BIDP PRN 10/11/20 03/13/21 History Loratadine [Claritin 10mg 10 mg PO DAILY 10/12/20 03/13/21 History Tablet] Montelukast Sodium [Singulair 10mg 10 mg PO PM 10/12/20 03/13/21 History tablet] Quetiapine Fumarate [Seroquel] 150 mg PO 199910/12/20 03/13/21 History lamoTRIgine [Lamotrigine] 100 mg PO BID 10/12/20 03/13/21 History polyethylene glycoL 3350 [Miralax 17 gm PO DAILY 10/12/20 03/13/21 History 17gm Packet] gabapentin 300 mg capsule 300 mg PO TID #90 cap 10/15/20 03/13/21 Rx Duloxetine HCl 60 mg PO DAILY 02/07/21 03/13/21 History Linaclotide [Linzess] 290 mcg PO 199902/07/21 03/13/21 History Magnesium Hydroxide [Milk of 30 ml PO DAILYP PRN 02/07/21 03/13/21 History Magnesia 30mL Udc] potassium chloride 20 mEq 20 meq PO DAILY tab 03/02/21 03/13/21 History tablet,extended release(part/cryst) Albuterol Sulfate [Albuterol 2 inh INHALATION Q6HP PRN 03/13/21 03/14/21 History Sulfate Hfa] Bethanechol Chloride [Urecholine 25 mg PO TID 03/14/21 03/14/21 History 25mg Tablet] Bisacodyl [Bisacodyl 10mg Supp] 10 mg RC DAILYP PRN 03/14/21 03/14/21 History Budesonide/Formoterol Fumarate 2 puffs IH BID 03/14/21 03/14/21 History [Budesonide-Formoterol 160-4.5] Cholecalciferol (Vitamin D3) 5,000 unit PO DAILY 03/14/21 03/14/21 History [Vitamin D3 1,000 Unit Cap] Ipratropium/Albuterol Sulfate 3 ml IH Q4HP PRN 03/14/21 03/14/21 History [Duoneb 3mL neb] Lactulose [Lactulose 20gm/30ml 20 gm PO DAILYP PRN 03/14/21 03/14/21 History Oral Soln] Loperamide HCl [Loperamide] 2 mg PO Q6HP PRN 03/14/21 03/14/21 History Phenazopyridine HCl [Azo Urinary 190 mg PO DAILYP PRN 03/14/21 03/14/21 History Pain Relief] Terazosin HCl 10 mg PO HS 03/14/21 03/14/21 History Tr
--- NOTE | 2021-03-14 19:06 | P.OP_ITS ---
Date of procedure: 03/14/21 Pre-op Diagnosis:: Inadequate venous access Post-op Diagnosis:: Same Procedure performed:: 7 Tamazight triple-lumen catheter placement (left subclavian vein access) Surgeon:: Pratik Webb MD Anesthesia: local Estimated blood loss (mL): 5 Operative findings:: Catheter anchored at 17 cm All 3 ports flushed without difficulty Brown port did not draw Operative note:: After informed consent was obtained the patient was maintained in a supine position. Her left chest and neck were prepped and draped in a sterile fashion. After infiltration local anesthetic a large bore needle was utilized to enter the left subclavian vein. Utilizing a modified Seldinger technique a 7 Tamazight triple-lumen catheter was secured at 17 cm. All 3 ports flushed without difficulty. The brown port did not draw . Chest x-ray is pending. Condition: other (Guarded) Disposition: no change Specimens:: None Complications:: No immediate. Chest x-ray pending.
--- NOTE | 2021-03-14 19:31 | PC.NURSE ---
Time out called by Dr. Webb at 18:30 for central line placement. Central line was placed without complication. Distal unable to draw back, but flushes. Chest XR ordered as per protocol. prerna gave verbal reading of okay to use to nurse post XR
[2021-03-14 20:00] VITALS: BP 169/89; PULSE 72; RESP 18; TEMP 36.6; O2SAT 96
[2021-03-14 22:22] LABS: POC Glucose,Bedside 105 (70-110)
[2021-03-14 22:46] LABS: POC Glucose,Bedside 115 (70-110)
[2021-03-14 23:59] VITALS: O2SAT 94
[2021-03-15] VITALS (10 sets, daily range): BP systolic 132–186; BP diastolic 78–96; PULSE 76–101; RESP 18–20; TEMP 36.3–37; O2SAT 85–95; BMI 41.9; BMI 41.8
--- NOTE | 2021-03-15 04:20 | PC.NURSE ---
Pt remains on 5L NC with O2 saturation 94%-95%. Ramos is draining clear yellow urine and has had 1,350ml out thus far in shift. Pt has rested well all shift.
[2021-03-15 06:49] LABS: Basophils % 0.5 % (0.1-2.0); Eosinophils # 0.1 K/mm3 (0.0-0.4); Eosinophils % 1.5 % (0.1-12.0); Hematocrit 30.3 % (37.0-47.0); Hemoglobin 9.4 g/dL (12.2-16.2); Lymphocytes # 0.9 K/mm3 (0.7-4.5); Mean Corpuscular HGB Conc 30.8 g/dL (31.8-35.4); Mean Corpuscular Hemoglobin 32.2 pg (27.0-31.2); Mean Corpuscular Volume 104.4 fl (81-99); Mean Platelet Volume 8.1 fl (7.4-10.4); Monocytes # 0.4 K/mm3 (0.1-1.0); Monocytes % 6.3 % (1.7-9.3); Neutrophils # 4.1 K/mm3 (1.8-7.8); Neutrophils % 74.6 % (37.0-80.0); Platelet Count 313 K/mm3 (142-424); Red Cell Distribution Width 14.3 % (11.5-17.5); White Blood Count 5.5 K/mm3 (4.8-10.8)
[2021-03-15 07:05] LABS: Anion Gap 8.8 mEq/L (5-15); Blood Urea Nitrogen 6 mg/dl (7-17); Carbon Dioxide 33 mmol/L (22.0-30.0); Chloride 101 mmol/L (98-107); Creatinine Clearance Estimated 55 mL/min (50-200); Estimated Glomerular Filt Rate 102 ml/min (>60); GFR (African American) 123 ML/MIN (>60); Glucose 91 mg/dl (74-100); Potassium 3.8 mmoL/L (3.5-5.1); Sodium 139 mmol/L (136-145)
[2021-03-15 08:07] LABS: POC Glucose,Bedside 94 (70-110)
--- NOTE | 2021-03-15 09:19 | XR_ITS ---
PROCEDURE: XR CHEST AP CLINICAL HISTORY: sob COMPARISON: CR XR CHEST PORTABLE from 02/07/2021 CR XR CHEST PORTABLE from 03/14/[address] ANGIO CHEST PE PROTOCOL from 03/15/2021 FINDINGS: Borderline cardiomegaly. Pulmonary vessels are somewhat engorged . Consolidation is present in the right lung base. Small bilateral pleural effusions are present Left subclavian central venous line is present with tip in the region the brachiocephalic confluence IMPRESSION: Mild CHF with right lower lobe consolidation and small bilateral effusions Dictated by: Victor Manuel Duarte MD 03/15/2021 10:36 Victor Manuel Duarte MD in [facility] 03/15/2021 10:36
--- NOTE | 2021-03-15 09:25 | HMH.ACPN2 ---
Internal Medicine - PN: Subj *Date: 03/15/21 *Time: 09:33 Interval history: pt doing better - but still on 5 liters o2 -vital signs better- will add urine c/s and chest ct -will add pul consult Exam Vital signs and Labs for Last 24 Hours: Temp Pulse Resp BP Pulse Ox 98.4 F 86 18 171/90 H 94 L 03/15/21 08:00 03/15/21 08:00 03/15/21 08:00 03/15/21 08:00 03/15/21 08:00 Laboratory Results - last 24 hr 03/14/21 11:35: POC Glucose 93 03/14/21 16:46: POC Glucose 105 03/14/21 21:37: POC Glucose 115 H 03/15/21 05:48: POC Glucose 94 03/15/21 06:33: WBC 5.5, RBC 2.90 L, Hgb 9.4 L, Hct 30.3 L, MCV 104.4 H, MCH 32.2 H, MCHC 30.8 L, RDW 14.3, Plt Count 313, MPV 8.1, Neut % (Auto) 74.6, Lymph % (Auto) 17.0, [place] % (Auto) 6.3, Eos % (Auto) 1.5, Baso % (Auto) 0.5, Neut # (Auto) 4.1, Lymph # (Auto) 0.9, [place] # (Auto) 0.4, Eos # (Auto) 0.1, Baso # (Auto) 0.0 03/15/21 06:33: Sodium 139, Potassium 3.8 D, Chloride 101, Carbon Dioxide 33 H, Anion Gap 8.8, BUN 6 L, Creatinine 0.60, Estimated Creat Clear 55, Estimated GFR 102, Est GFR ( Amer) 123, Glucose 91 D, Calcium 9.0 I & O for Last 24 hours: Intake & Output 03/12/21 03/13/21 03/14/21 03/15/21 11:59 11:59 11:59 11:59 Intake Total 240 / 240 760 / 760 Output Total 1100 / 1100 2850 / 2850 Balance -860 / -860 -2089 / -2089 Weight 284 lb 1 oz 267 lb 2 oz - Constitutional obese - *Routine HEENT Exam Head: Present: normocephalic Eye: Present: EOMI, PERRL ENT: Present: mucous membranes dry - *Routine Neck Exam Absent: JVD - *Routine Respiratory Exam Present: decreased breath sounds - *Routine Cardiovascular Exam Present: RRR - *Routine Abdominal Exam Present: soft - *Routine Extremities Exam Absent: calf tenderness - *Routine Skin Exam Present: intact - *Routine Neurological Exam Present: alert, CN II-XII intact - Routine Psychiatric Exam Present: cooperative. 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 exterminator helper insulin use: without termite exterminator helper use Diabetes mellitus complication status: with skin complications Diabetes mellitus complication detail: with other skin ulcer Qualified Code(s): E11.622 - Type 2 diabetes mellitus with other skin ulcer Category: Medical Code(s): E11.9 - Type 2 diabetes mellitus without complications (3) Obesity Status: Acute Qualifiers: Obesity type: due to excess calories Obesity classification: adult class 3 (BMI >= 40) Serious obesity comorbidity presence: with serious comorbidity Body mass index: BMI 40.0-44.9 Qualified Code(s): E66.01 - Morbid (severe) obesity due to excess calories; Z68.41 - Body mass index [BMI] 40.0-44.9, adult Category: Medical Code(s): E66.9 - Obesity, unspecified (4) HTN (hypertension) Status: Chronic Qualifiers: Hypertension type: essential hypertension Category: Medical Code(s): I10 - Essential (primary) hypertension (5) Poor venous access Status: Acute Category: Medical Code(s): I87.8 - Other specified disorders of veins (6) Anemia Status: Acute Qualifiers: Anemia type: unspecified type Qualified Code(s): D64.9 - Anemia, unspecified Category: Medical Code(s): D64.9 - Anemia, unspecified (7) LANCE (obstructive sleep apnea) Status: Acute Category: Medical Code(s): G47.33 - Obstructive sleep apnea (adult) (pediatric) (8) Pickwickian syndrome Status: Chronic Category: Medical Code(s): E66.2 - Morbid (severe) obesity with alveolar hypoventilation
--- NOTE | 2021-03-15 09:27 | CT_ITS ---
PROCEDURE: CT ANGIO CHEST PE PROTOCOL CLINCIAL INDICATION: sob COMPARISON: CT CT ANGIO CHEST PE PROTOCOL from 02/09/2021 CR XR CHEST AP from 03/15/2021 TECHNIQUE: IV Contrast: 70ML Isovue 370 Axial images obtained with sagittal and coronal reformats. All CT scans at the facility use one or more dose reduction, viz: automated exposure control, ma/kV adjustment per patient size (including targeted exams where dose is matched to indication, i.e. head), or iterative reconstruction technique. FINDINGS: HEART AND MEDIASTINAL STRUCTURES: No evidence of pulmonary embolus, aortic aneurysm, or aortic dissection. No mediastinal or hilar mass. LUNGS AND PLEURAL SPACES: There are medium-sized bilateral pleural effusions which have increased in volume compared to the previous exam. Atelectatic changes are present in the lung bases. There is mild diffuse ground-glass attenuation in the upper lobes centrally with some patchy areas of consolidation. Nodular opacity once again noted in the lingula at 10 x 8 mm. Compressive atelectatic changes are present in the lower lobes. BONY STRUCTURES: Degenerative changes thoracic spine UPPER ABDOMEN: Subcutaneous metallic density in the lower thoracic/upper lumbar region on the left. ADDITIONAL FINDINGS: Left subclavian central venous line is present with tip in the region the SVC. IMPRESSION: 1. No evidence of pulmonary embolus. 2. Bilateral pleural effusions with compressive atelectatic changes/consolidation in the lower lobes and mild diffuse ground-glass attenuation centrally in the upper lobes which could be related to edema or pneumonia.. Dictated by: Victor Manuel Duarte MD 03/15/2021 10:30 Victor Manuel Duarte MD in [facility] 03/15/2021 10:30
[2021-03-15 10:33] LABS: NT Pro Brain Natriuretic Pep. 2780 pg/mL (0-125)
--- NOTE | 2021-03-15 12:01 | CA_ITS ---
APPROVED REPORT EXAM: Comprehensive 2D, Doppler, and color-flow Echocardiogram Sheriff Officer: Natasha Bernard RVT Ht: 5 ft 6 in Wt: 266lbs BSA: 2.26 BP: 171/90 mmHg Indications: PNEUMONIA,HTN,DM,OBESITY,HLD,LANCE,GERD,ANGEL PLEURAL EFFUSIONS TDS-PT FLAT ON BACK 2D Dimensions LVOT 2.50 cm (M/F) 1.5-2.5 LA Volume 41.20 mL LA Volume Index 18.31 mL/m2 (M/F) 16-34 M-Mode Dimensions RVDd 2.72 cm (0.9-2.6) LA Diam 4.03 cm (1.9-4.0) LVDd 5.58 cm (3.5-5.7) Ao Diam 3.23 cm (2.0-3.7) LVDs 3.79 cm (3.5-5.7) IVSd 0.40 cm (0.6-1.1) PWd 0.71 cm (0.6-1.1) EF (Teich) 59.60% FS 32.10% EDV (Teich) 152.40 mL ESV (Teich) 61.60 mL LV Diastology E Decel Time 150.00 (160-240 msec) E/A Ratio 1.1 MED E' 12.90 (< 7 cm/sec) E'/MED E' Ratio 7.80 (>14) LAT E' 15.40 (<10 cm/sec) E/LAT E' Ratio 6.53 (>14) Mitral Valve MV E Max Kaleb. 101.00 (40-130 cm/s) MV A Velocity 91.00 (40-130 cm/s) E/A Ratio 1.10 MV Decel. Time 150.00 (160-240 ms) MV PHT 44.00 ms Pulmonary Valve PV Peak Velocity 110.00 (50-150 cm/s) Tricuspid Valve TR P. Velocity 352.00 cm/s RAP Estimate 10.00 mmHg RVSP 59.70 mmHg Left Ventricle Technically difficult study because of the patient factors and poor acoustic windows. Left atrium is mildly enlarged, left ventricle is normal size, mild concentric left ventricular hypertrophy, visually estimated ejection fraction 55% with no regional wall motion abnormality, diastolic parameters are inconclusive. Right Ventricle Right atrium and right ventricle qualitatively mildly enlarged with normal contractility. Aortic Valve Aortic valve is minimally thickened and fibrosed, there is no aortic stenosis or aortic insufficiency. Mitral Valve Mitral is grossly normal, there is trace mitral regurgitation. Tricuspid Valve Tricuspid valve grossly normal, there is trace tricuspid regurgitation, tricuspid regurgitation jet velocity is inadequate for calculation of the right ventricular systolic pressure. Pulmonic Valve Pulmonic valve is poorly visualized. Great Vessels Aortic root is normal size. Inferior vena cava is normal size with normal inspiratory collapse. Pericardium No significant pericardial effusion noted. Conclusion 1. Technically difficult study, mild biatrial enlargement, normal left ventricular size, mild concentric left ventricular hypertrophy, visually estimated ejection fraction 55% with no regional wall motion abnormality, diastolic parameters are inconclusive. 2. Mildly enlarged right ventricle with normal contractility. 3. Trace mitral and tricuspid regurgitation. 4. No significant pericardial effusion noted. 5. Inferior vena cava is normal size with normal inspiratory collapse. Electronically signed by : Lj Pimentel MD 03/15/2021 21:06:06
--- NOTE | 2021-03-15 12:01 | HMH.PULMCON ---
*Admission Date: 03/13/21 *Reason for consult:: Acute hypoxic respiratory failure, pneumonia *History of present illness: Ms. Molina is a 60-year-old female no significant smoking history is following in pulmonary clinic for exertional dyspnea, wheezing without diagnosis COPD and remote history of sarcoidosis recently discharged from the hospital on January 2021 status post admission for hypercarbic respiratory failure and pneumonia presented to the clinic again with worsening respiratory distress and pulmonary was called for further management. [facility] History Medical History: Reports:: Anxiety, Cancer, Depression, Diabetes Mellitus Type 2, Gastroesophageal Reflux Disease(GERD), Hypertension, Migraine, Urinary Tract Infection Denies:: Diabetes Mellitus Type 1, MRSA, Seizures *Have you ever received a pneumonia vaccine?: No *Have you received a flu vaccine this season?: No Other Medical History: Reports: Anemia, Other Laterality Cases: Bilateral: Tonsillectomy Other Surgeries: Yes: Cholecystectomy, Colonoscopy, , Dilation and Curettage, Hysterectomy-Total, Sinus Surgery, Skin Cancer Excision, Tubal Ligation, Other Amputation: No Fractures: Yes - *Social History Smoking Status: Never smoker Alcohol Intake: never Substance Use Type: denies use *Occupational Status:: unemployed, disabled Housing: jail *Travel in the last 8 weeks: None - Psychiatric History Pschychiatric History:: Reports:: Anxiety, Depression Family Hx:: No significant family history ROS - Cons Reports body ache(s) - Eyes Denies blind spots - ENT Denies bleeding gums - Card Reports shortness of breath, Reports shortness of breath with activity - Resp Respiratory: Reports shortness of breath, Denies change in phlegm color, Reports chest congestion, Reports cough, Reports cough with sputum production - GI Gastrointestingal: Denies: abdominal pain - Psych Reports abnormal sleep pattern Meds Home Medications Medication Instructions Recorded Confirmed Type Acetaminophen [Tylenol 500mg 500 mg PO Q6HP PRN 04/17/20 03/13/21 History tablet] Ferrous Sulfate [Ferrous Sulfate 325 mg PO TID 04/17/20 03/13/21 History 325mg Tablet] Fludrocortisone Acetate [Florinef 0.1 mg PO DAILY 04/17/20 03/13/21 History 0.1mg tablet] Fluticasone Propionate [Flonase 2 spr NS DAILY 04/17/20 03/13/21 History 50mcg nasal spray 16gm] [place]-3 Acid Ethyl Esters [Lovaza] 2 gm PO BID 04/17/20 03/13/21 History Omeprazole [Omeprazole 20mg Tab] 20 mg PO DAILY 04/17/20 03/13/21 History Sucralfate 10 ml PO QID 04/17/20 03/13/21 History ondansetron HCL [Ondansetron 4mg 4 mg PO TIDP PRN 04/17/20 03/13/21 History tab*] Meclizine HCl 12.5 mg PO BIDP PRN 10/11/20 03/13/21 History Loratadine [Claritin 10mg 10 mg PO DAILY 10/12/20 03/13/21 History Tablet] Montelukast Sodium [Singulair 10mg 10 mg PO PM 10/12/20 03/13/21 History tablet] Quetiapine Fumarate [Seroquel] 150 mg PO 199910/12/20 03/13/21 History lamoTRIgine [Lamotrigine] 100 mg PO BID 10/12/20 03/13/21 History polyethylene glycoL 3350 [Miralax 17 gm PO DAILY 10/12/20 03/13/21 History 17gm Packet] gabapentin 300 mg capsule 300 mg PO TID #90 cap 10/15/20 03/13/21 Rx Duloxetine HCl 60 mg PO DAILY 02/07/21 03/13/21 History Linaclotide [Linzess] 290 mcg PO 199902/07/21 03/13/21 History Magnesium Hydroxide [Milk of 30 ml PO DAILYP PRN 02/07/21 03/13/21 History Magnesia 30mL Udc] potassium chloride 20 mEq 20 meq PO DAILY tab 03/02/21 03/13/21 History tablet,extended release(part/cryst) Albuterol Sulfate [Albuterol 2 inh INHALATION Q6HP PRN 03/13/21 03/14/21 History Sulfate Hfa] Bethanechol Chloride [Urecholine 25 mg PO TID 03/14/21 03/14/21 History 25mg Tablet] Bisacodyl [Bisacodyl 10mg Supp] 10 mg RC DAILYP PRN 03/14/21 03/14/21 History Budesonide/Formoterol Fumarate 2 puffs IH BID 03/14/21 03/14/21 History [Budesonide-Formoterol 160-4.5] Cholecalciferol (Vitamin D3
[2021-03-15 14:38] LABS: POC Glucose,Bedside 176 (70-110)
[2021-03-15 17:31] LABS: POC Glucose,Bedside 113 (70-110)
--- NOTE | 2021-03-15 19:38 | PC.NURSE ---
Ramos cath recently removed, pt c/o'd of some abd discomfort. Pt resting at this time. Has been intermittently anxious and yelled out today with delusional thinking( stating we were going to put her in a gas chamber and burn her alive) Pt calm at this time. Bed alarm in place. VSS. CB in reach. Pt has generalized edema in BUE and BLE that is pitting. Has had good u/o this shift. Attempted to wean 02 to 4 L NC, was unsuccessful, pt remains on 5 L NC at this time. Report given to Adry Fowler RN.
[2021-03-15 22:19] LABS: POC Glucose,Bedside 143 (70-110)
[2021-03-15 23:26] LABS: Vancomycin,Trough 26.3 ug/mL (5.0-10.0)
[2021-03-16] VITALS (11 sets, daily range): BP systolic 109–166; BP diastolic 61–86; PULSE 70–107; RESP 16–24; TEMP 36.7–37.1; O2SAT 82–95; BMI 39.7
--- NOTE | 2021-03-16 03:53 | PC.NURSE ---
Patient is A&Ox1. Patient has been restless this shift. Bed alarm is on for safety. Patient has had incontinent episodes this shift. No acute changes this shift. VSS, call light within reach, will continue to monitor.
--- NOTE | 2021-03-16 03:55 | PC.NURSE ---
Ghada from lab called with a critical Vanc trough of 26.3; critical, name and verified x2. (03/15 682) Ramu from Night watched paged, explained that the vanc had just started before lab arrived, advised to finish current infusion, obtain another vanc trough at 1030 on 03/16.
[2021-03-16 04:07] LABS: Vancomycin,Peak 39.2 ug/ml (11-39)
[2021-03-16 06:21] LABS: POC Glucose,Bedside 96 (70-110)
[2021-03-16 06:46] LABS: Basophils % 0.4 % (0.1-2.0); Eosinophils # 0.1 K/mm3 (0.0-0.4); Eosinophils % 1.2 % (0.1-12.0); Hematocrit 28.9 % (37.0-47.0); Hemoglobin 9.2 g/dL (12.2-16.2); Lymphocytes # 1.3 K/mm3 (0.7-4.5); Lymphocytes % 23.8 % (10-50); Mean Corpuscular HGB Conc 31.7 g/dL (31.8-35.4); Mean Corpuscular Hemoglobin 32.3 pg (27.0-31.2); Mean Corpuscular Volume 101.6 fl (81-99); Mean Platelet Volume 7.9 fl (7.4-10.4); Monocytes # 0.4 K/mm3 (0.1-1.0); Monocytes % 7.8 % (1.7-9.3); Neutrophils # 3.7 K/mm3 (1.8-7.8); Neutrophils % 66.8 % (37.0-80.0); Platelet Count 325 K/mm3 (142-424); Red Blood Count 2.84 M/mm3 (4.20-5.40); Red Cell Distribution Width 14.6 % (11.5-17.5); White Blood Count 5.5 K/mm3 (4.8-10.8)
[2021-03-16 06:53] LABS: Blood Urea Nitrogen 7 mg/dl (7-17); Calcium 8.7 mg/dl (8.4-10.2); Carbon Dioxide 34 mmol/L (22.0-30.0); Chloride 95 mmol/L (98-107); Creatinine Clearance Estimated 107 mL/min (50-200); Estimated Glomerular Filt Rate 85 ml/min (>60); GFR (African American) 103 ML/MIN (>60); Glucose 96 mg/dl (74-100); Sodium 135 mmol/L (136-145)
[2021-03-16 07:13] LABS: Anion Gap 8.6 mEq/L (5-15)
[2021-03-16 07:35] LABS: Potassium 2.6 mmoL/L (3.5-5.1)
--- NOTE | 2021-03-16 08:43 | HMH.ACPN2 ---
Internal Medicine - PN: Subj *Date: 03/16/21 *Time: 08:43 Exam Vital signs and Labs for Last 24 Hours: Temp Pulse Resp BP Pulse Ox 98.1 F 82 18 140/73 91 L 03/16/21 04:00 03/16/21 05:37 03/16/21 04:00 03/16/21 04:00 03/16/21 05:37 Laboratory Results - last 24 hr 03/15/21 06:33: NT-Pro-B Natriuret Pep 2780 H, Procalcitonin 0.050 03/15/21 11:47: POC Glucose 176 H 03/15/21 16:43: POC Glucose 113 H 03/15/21 20:24: POC Glucose 143 H 03/15/21 22:31: Vancomycin Trough 26.3 H 03/16/21 03:20: Vancomycin Peak 39.2 H 03/16/21 06:03: POC Glucose 96 03/16/21 06:06: WBC 5.5, RBC 2.84 L, Hgb 9.2 L, Hct 28.9 L, MCV 101.6 H, MCH 32.3 H, MCHC 31.7 L, RDW 14.6, Plt Count 325, MPV 7.9, Neut % (Auto) 66.8, Lymph % (Auto) 23.8, [place] % (Auto) 7.8, Eos % (Auto) 1.2, Baso % (Auto) 0.4, Neut # (Auto) 3.7, Lymph # (Auto) 1.3, [place] # (Auto) 0.4, Eos # (Auto) 0.1, Baso # (Auto) 0.0 03/16/21 06:06: Sodium 135 L, Potassium 2.6 L* D, Chloride 95 L, Carbon Dioxide 34 H, Anion Gap 8.6, BUN 7, Creatinine 0.70, Estimated Creat Clear 107, Estimated GFR 85, Est GFR ( Amer) 103, Glucose 96, Calcium 8.7 I & O for Last 24 hours: Intake & Output 03/13/21 03/14/21 03/15/21 03/16/21 23:59 23:59 23:59 23:59 Intake Total 240 / 240 120 / 520 1000 / 1000 240 / 240 Output Total 200 / 200 2400 / 3750 5200 / 5200 Balance 40 / 40 -2280 / -3230 -4200 / -4200 240 / 240 Weight 121.279 kg 128.849 kg 121 kg 114.872 kg Microbiology Reports for the Last 24 Hours: Microbiology 03/14/21 16:55 Sputum - Expectorated Sputum Gram Stain - Final 03/13/21 13:05 Blood Blood Culture - Preliminary NO GROWTH AFTER 48 HOURS 03/13/21 14:10 Blood Blood Culture - Preliminary NO GROWTH AFTER 48 HOURS Assessment and Plan (1) Pneumonia Status: Acute Category: Medical Code(s): J18.9 - Pneumonia, unspecified organism (2) Diabetes type 2, controlled Status: Acute Qualifiers: 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 insulin use: without custodial use Diabetes mellitus complication status: with skin complications Diabetes mellitus complication detail: with other skin ulcer Qualified Code(s): E11.622 - Type 2 diabetes mellitus with other skin ulcer Category: Medical Code(s): E11.9 - Type 2 diabetes mellitus without complications (3) Obesity Status: Acute Qualifiers: Obesity type: due to excess calories Obesity classification: adult class 3 (BMI >= 40) Serious obesity comorbidity presence: with serious comorbidity Body mass index: BMI 40.0-44.9 Qualified Code(s): E66.01 - Morbid (severe) obesity due to excess calories; Z68.41 - Body mass index [BMI] 40.0-44.9, adult Category: Medical Code(s): E66.9 - Obesity, unspecified (4) HTN (hypertension) Status: Chronic Qualifiers: Hypertension type: essential hypertension Category: Medical Code(s): I10 - Essential (primary) hypertension (5) Poor venous access Status: Acute Category: Medical Code(s): I87.8 - Other specified disorders of veins (6) Anemia Status: Acute Qualifiers: Anemia type: unspecified type Qualified Code(s): D64.9 - Anemia, unspecified Category: Medical Code(s): D64.9 - Anemia, unspecified (7) LANCE (obstructive sleep apnea) Status: Acute Category: Medical Code(s): G47.33 - Obstructive sleep apnea (adult) (pediatric) (8) Pickwickian syndrome Status: Chronic Category: Medical Code(s): E66.2 - Morbid (severe) obesity with alveolar hypoventilation The patient's infection will respond to the chosen ABx?: Yes Is the patient receiving the right drug, dose, and route?: Yes Could a more targeted ABx be ordered?: No
--- NOTE | 2021-03-16 09:23 | HMH.PULMPN ---
Internal Medicine - PN: Subj *Date: 03/16/21 *Time: 11:13 Interval history: No acute respiratory vents overnight. Exam - Constitutional Constitutional:: Present: no acute distress, comfortable - HENMT Exam HENMT: Present: normocephalic, atraumatic - Eye Exam Eyes:: Present: normal appearance both eyes and related structures - Neck Exam Neck:: Present: normal visual inspection - Respiratory Exam Respiratory:: Present: able to speak in complete sentences, no respiratory distress. Absent: wheezing - Cardiovascular Exam Cardiac:: Present: S1, S2 - GI Exam GI:: Present: soft, obese - Skin Exam Skin: Present: warm, no rash - Neurological Exam Neurological: Present: alert, awake, normal cognition - Extremities Exam Extremities: Present: no cyanosis, no clubbing, edema Assessment and Plan (1) Pneumonia Status: Acute Category: Medical Code(s): J18.9 - Pneumonia, unspecified organism (2) Diabetes type 2, controlled Status: Acute Qualifiers: Diabetes mellitus intermodal dispatcher insulin use: without intermodal dispatcher use Diabetes mellitus complication status: with skin complications Diabetes mellitus complication detail: with other skin ulcer Qualified Code(s): E11.622 - Type 2 diabetes mellitus with other skin ulcer Category: Medical Code(s): E11.9 - Type 2 diabetes mellitus without complications (3) Obesity Status: Acute Qualifiers: Obesity type: due to excess calories Obesity classification: adult class 3 (BMI >= 40) Serious obesity comorbidity presence: with serious comorbidity Body mass index: BMI 40.0-44.9 Qualified Code(s): E66.01 - Morbid (severe) obesity due to excess calories; Z68.41 - Body mass index [BMI] 40.0-44.9, adult Category: Medical Code(s): E66.9 - Obesity, unspecified (4) HTN (hypertension) Status: Chronic Qualifiers: Hypertension type: essential hypertension Category: Medical Code(s): I10 - Essential (primary) hypertension (5) Poor venous access Status: Acute Category: Medical Code(s): I87.8 - Other specified disorders of veins (6) Anemia Status: Acute Qualifiers: Anemia type: unspecified type Qualified Code(s): D64.9 - Anemia, unspecified Category: Medical Code(s): D64.9 - Anemia, unspecified (7) LANCE (obstructive sleep apnea) Status: Acute Category: Medical Code(s): G47.33 - Obstructive sleep apnea (adult) (pediatric) (8) Pickwickian syndrome Status: Chronic Category: Medical Code(s): E66.2 - Morbid (severe) obesity with alveolar hypoventilation - Assessment and plan all Dx Assessment and Plan for all problems:: #Hospital-acquired pneumonia: #Acute hypoxic respiratory failure: 60-year-old with no significant smoking history following in pulmonary clinic for exertional dyspnea, wheezing without diagnosis of asthma and presumed remote history of sarcoidosis recent discharge for pneumonia and possible volume overload during which improved antibiotics and diuresis presented to the clinic again with worsening respiratory distress. Patient during the last discharge was supposed to follow-up with cardiology to evaluate for possible congestive heart failure. Chest x-ray on admission showed cardiomegaly with bilateral lower lobe infiltrates and pleural effusion along with volume overload. CTA performed that did not change evidence of pulmonary embolus however showed bilateral pleural effusions right greater than left with lower lobe atelectasis/airspace disease along with upper lobe predominant groundglass opacities. COVID-19 and influenza PCR negative. Patient also has central line placed secondary to lack of IV access and failed PICC line attempt. ABG on admission did not show any evidence of hypoxic or hypercarbic respiratory failure. Interval update: Remain afebrile. Patient WBC remained stable. Significant hypokalemia noted status post diuresis, potassium at 2.6, ordered 40 IV Kcl by primary team BNP elevated a
--- NOTE | 2021-03-16 09:42 | HMH.ACPN2 ---
Internal Medicine - PN: Subj *Date: 03/16/21 *Time: 13:49 Interval history: 60-year-old female patient sitting up in bed, she does report some occasional shortness of breath with activity during the night. Oxygen saturation 94% on 5 L per nasal cannula. Potassium this morning 2.6, will replenish. Exam Vital signs and Labs for Last 24 Hours: Temp Pulse Resp BP Pulse Ox 98.1 F 83 24 123/78 94 L 03/16/21 08:00 03/16/21 08:00 03/16/21 08:00 03/16/21 08:00 03/16/21 08:00 Laboratory Results - last 24 hr 03/15/21 06:33: NT-Pro-B Natriuret Pep 2780 H, Procalcitonin 0.050 03/15/21 11:47: POC Glucose 176 H 03/15/21 16:43: POC Glucose 113 H 03/15/21 20:24: POC Glucose 143 H 03/15/21 22:31: Vancomycin Trough 26.3 H 03/16/21 03:20: Vancomycin Peak 39.2 H 03/16/21 06:03: POC Glucose 96 03/16/21 06:06: WBC 5.5, RBC 2.84 L, Hgb 9.2 L, Hct 28.9 L, MCV 101.6 H, MCH 32.3 H, MCHC 31.7 L, RDW 14.6, Plt Count 325, MPV 7.9, Neut % (Auto) 66.8, Lymph % (Auto) 23.8, [place] % (Auto) 7.8, Eos % (Auto) 1.2, Baso % (Auto) 0.4, Neut # (Auto) 3.7, Lymph # (Auto) 1.3, [place] # (Auto) 0.4, Eos # (Auto) 0.1, Baso # (Auto) 0.0 03/16/21 06:06: Sodium 135 L, Potassium 2.6 L* D, Chloride 95 L, Carbon Dioxide 34 H, Anion Gap 8.6, BUN 7, Creatinine 0.70, Estimated Creat Clear 107, Estimated GFR 85, Est GFR ( Amer) 103, Glucose 96, Calcium 8.7 I & O for Last 24 hours: Intake & Output 10/30/03/14/21 03/15/21 03/16/21 23:59 23:59 23:59 23:59 Intake Total 240 / 240 120 / 520 1000 / 1000 240 / 240 Output Total 200 / 200 2400 / 3750 5200 / 5200 Balance 40 / 40 -2280 / -3230 -4200 / -4200 240 / 240 Weight 267 lb 6 oz 284 lb 1 oz 266 lb 12.149 oz 253 lb 4 oz Microbiology Reports for the Last 24 Hours: Microbiology 03/13/21 21:26 Urine,Clean Catch Urine Culture - Preliminary 03/14/21 16:55 Sputum - Expectorated Sputum Gram Stain - Final 03/13/21 13:05 Blood Blood Culture - Preliminary NO GROWTH AFTER 48 HOURS 03/13/21 14:10 Blood Blood Culture - Preliminary NO GROWTH AFTER 48 HOURS - Constitutional no acute distress, obese - *Routine HEENT Exam Head: Present: normocephalic Eye: Present: EOMI ENT: Present: mucous membranes moist - *Routine Neck Exam Present: trachea midline. Absent: tracheal deviation - *Routine Respiratory Exam Present: CTA bilaterally. Absent: accessory muscle use - *Routine Cardiovascular Exam Present: RRR - *Routine Abdominal Exam Present: soft, normoactive bowel sounds. Absent: tenderness, firm - *Routine Extremities Exam Present: edema, full ROM. Absent: cyanosis, clubbing, calf tenderness - *Routine Skin Exam Present: intact, dry, warm. Absent: cyanosis, erythema - *Routine Neurological Exam Present: alert, oriented X3. Absent: CN II-XII intact, motor deficit - Routine Psychiatric Exam Present: normal affect, normal thought process. Absent: auditory hallucinations Assessment and Plan (1) Pneumonia Status: Acute Category: Medical Code(s): J18.9 - Pneumonia, unspecified organism (2) Diabetes type 2, controlled Status: Acute Qualifiers: Diabetes mellitus jail insulin use: without exterminator termite use Diabetes mellitus complication status: with skin complications Diabetes mellitus complication detail: with other skin ulcer Qualified Code(s): E11.622 - Type 2 diabetes mellitus with other skin ulcer Category: Medical Code(s): E11.9 - Type 2 diabetes mellitus without complications (3) Obesity Status: Acute Qualifiers: Obesity type: due to excess calories Obesity classification: adult class 3 (BMI >= 40) Serious obesity comorbidity presence: with serious comorbidity Body mass index: BMI 40.0-44.9 Qualified Code(s): E66.01 - Morbid (severe) obesity due to excess calories; Z68.41 - Body mass index [BMI] 40.0-44.9, adult Category: Medical Code(s): E66.9 - Obesity, unspecifi
--- NOTE | 2021-03-16 09:57 | SW/DCPLANNER ---
Addendum entered by Nadia Santacruz 03/17/21 09:21: This patient will discharge back to [facility] today. I spoke with Nyla from [place] to update on plan, patient information will be faxed and per Nyla no further COVID testing needed. Original Note: This patient currently resides at [facility] level of care. I will continue to follow up with Nyla at [place] until patient is medically stable for discharge.
--- NOTE | 2021-03-16 11:05 | HMH.PTEV ---
Physical Therapy Evaluation Rehab PT IP Evaluation Start: 03/16/21 09:41 Freq: ONCE Status: Active Protocol: Document 03/16/21 10:51 JENNA (Rec: 03/16/21 11:05 [email or web address] [id number]) Subjective/History History History This is the initial evaluation for Johanny Molina. Pt is a 60 y/o female admitted to [facility] from [facility] for c/o cough, fever, sputum production and respiratory distress. - note done by Christina Johnson, SPT Subjective Subjective Pt states she was living at [facility] before her admission to [facility]. Pt states she used a walker to get around the [facility]. Pt states she does not know how long she has been at [facility]. Pt struggled with H details. Rehab PT IP Eval Objective Appearance Patient Behavior Appropriate,Cooperative, Talkative Patient Orientation Place,Name,Birthday,Year Difficulty following instructions mild Speech Pattern Clear,Appropriate,Coherent Ambulation Patient Able to Ambulate Yes Ambulation Observation IP General Gait Pattern Observation Ataxic Gait,Shuffling Step Ambulation Distance (feet) 2 Ambulation Assistive Device Rolling Walker Ambulation Ability Contact Guard/Hand Hold Balance Ability to Arise Able, uses arms to help Sitting Balance Steady, safe Standing Balance Steady, wide stance Dynamic Sitting Balance Ability Good Dynamic Standing Balance Ability Fair Transfers Bed Transfer Ability Contact Guard/Hand Hold Chair Transfer Ability Contact Guard/Hand Hold Sit to Stand Bed Transfer Ability Contact Guard/Hand Hold Sit to Stand Chair Transfer Ability Minimal x 1 (25% assist) Rehab PT IP prob,goals,plan Problems Date of Evaluation: 03/16/21 PT IP Problems Transfers,Gait,Balance,Self care,Safety Rehab Potential Rehab Potential Fair Equipment Needs Assistive Devices Rolling / Wheeled Walker Plan PT Intervention Plan Transfers,Gait,Balance,Self care,Safety,Therapeutic Exercise PT Plan Frequency BID Duration LOS Discharge Goals Bed Transfer Ability Contact Guard/Hand Hold Sit to Stand Chair Transfer Ability Contact Guard/Hand Hold Ambula
--- NOTE | 2021-03-16 11:29 | PC.NURSE ---
spoke with lourdes in pharmacy ; holding vanc at this time.
--- NOTE | 2021-03-16 11:31 | HMH.PHACONS ---
- Pharmacy Consult Date: 03/16/21 Time: 11:31 Referring provider: TIANNA Reason for Consult:: VANCOMYCIN DOSING ADJUSTMENT CONSULT Allergies and ADEs:: Allergies Allergy/AdvReac Type Severity Reaction Status Date / Time aspirin Allergy Verified 03/13/21 15:35 azithromycin Allergy Verified 03/13/21 15:35 bupropion Allergy Verified 03/13/21 15:35 [From Wellbutrin SR] Cephalosporins Allergy Verified 03/13/21 15:35 erythromycin base AdvReac Mild Verified 03/13/21 15:35 tramadol AdvReac Mild Verified 03/13/21 15:35 Home Medications:: Home Medications Medication Instructions Recorded Confirmed Type Acetaminophen [Tylenol 500mg 500 mg PO Q6HP PRN 04/17/20 03/13/21 History tablet] Ferrous Sulfate [Ferrous Sulfate 325 mg PO TID 04/17/20 03/13/21 History 325mg Tablet] Fludrocortisone Acetate [Florinef 0.1 mg PO DAILY 04/17/20 03/13/21 History 0.1mg tablet] Fluticasone Propionate [Flonase 2 spr NS DAILY 04/17/20 03/13/21 History 50mcg nasal spray 16gm] [place]-3 Acid Ethyl Esters [Lovaza] 2 gm PO BID 04/17/20 03/13/21 History Omeprazole [Omeprazole 20mg Tab] 20 mg PO DAILY 04/17/20 03/13/21 History Sucralfate 10 ml PO QID 04/17/20 03/13/21 History ondansetron HCL [Ondansetron 4mg 4 mg PO TIDP PRN 04/17/20 03/13/21 History tab*] Meclizine HCl 12.5 mg PO BIDP PRN 10/11/20 03/13/21 History Loratadine [Claritin 10mg 10 mg PO DAILY 10/12/20 03/13/21 History Tablet] Montelukast Sodium [Singulair 10mg 10 mg PO PM 10/12/20 03/13/21 History tablet] Quetiapine Fumarate [Seroquel] 150 mg PO 2000 10/12/20 03/13/21 History lamoTRIgine [Lamotrigine] 100 mg PO BID 10/12/20 03/13/21 History polyethylene glycoL 3350 [Miralax 17 gm PO DAILY 10/12/20 03/13/21 History 17gm Packet] gabapentin 300 mg capsule 300 mg PO TID #90 cap 10/15/20 03/13/21 Rx Duloxetine HCl 60 mg PO DAILY 02/07/21 03/13/21 History Linaclotide [Linzess] 290 mcg PO 2000 02/07/21 03/13/21 History Magnesium Hydroxide [Milk of 30 ml PO DAILYP PRN 02/07/21 03/13/21 History Magnesia 30mL Udc] potassium chloride 20 mEq 20 meq PO DAILY tab 03/02/21 03/13/21 History tablet,extended release(part/cryst) Albuterol Sulfate [Albuterol 2 inh INHALATION Q6HP PRN 03/13/21 03/14/21 History Sulfate Hfa] Bethanechol Chloride [Urecholine 25 mg PO TID 03/14/21 03/14/21 History 25mg Tablet] Bisacodyl [Bisacodyl 10mg Supp] 10 mg RC DAILYP PRN 03/14/21 03/14/21 History Budesonide/Formoterol Fumarate 2 puffs IH BID 03/14/21 03/14/21 History [Budesonide-Formoterol 160-4.5] Cholecalciferol (Vitamin D3) 5,000 unit PO DAILY 03/14/21 03/14/21 History [Vitamin D3 1,000 Unit Cap] Ipratropium/Albuterol Sulfate 3 ml IH Q4HP PRN 03/14/21 03/14/21 History [Duoneb 3mL neb] Lactulose [Lactulose 20gm/30ml 20 gm PO DAILYP PRN 03/14/21 03/14/21 History Oral Soln] Loperamide HCl [Loperamide] 2 mg PO Q6HP PRN 03/14/21 03/14/21 History Phenazopyridine HCl [Azo Urinary 190 mg PO DAILYP PRN 03/14/21 03/14/21 History Pain Relief] Terazosin HCl 10 mg PO HS 03/14/21 03/14/21 History Triamcinolone Acetonide 0 gm TP HSP PRN 03/14/21 03/14/21 History diazePAM [diazePAM 5mg Tablet] 2.5 mg PO BIDP PRN 03/14/21 03/14/21 History Height: 1.7 m Weight: 114.872 kg Laboratory Results:: Laboratory Results - last 24 hr 03/15/21 11:47: POC Glucose 176 H 03/15/21 16:43: POC Glucose 113 H 03/15/21 20:24: POC Glucose 143 H 03/15/21 22:31: Vancomycin Trough 26.3 H 03/16/21 03:20: Vancomycin Peak 39.2 H 03/16/21 06:03: POC Glucose 96 03/16/21 06:06: WBC 5.5, RBC 2.84 L, Hgb 9.2 L, Hct 28.9 L, MCV 101.6 H, MCH 32.3 H, MCHC 31.7 L, RDW 14.6, Plt Count 325, MPV 7.9, Neut % (Auto) 66.8, Lymph % (Auto) 23.8, [place] % (Auto) 7.8, Eos % (Auto) 1.2, Baso % (Auto) 0.4, Neut # (Auto) 3.7, Lymph # (Auto) 1.3, [place] # (Auto) 0.4, Eos # (Auto) 0.1, Baso # (Auto) 0.0 03/16/21 06:06: Sodium 135 L, Potassium 2.6 L* D, Chloride 95 L, Carbon Dioxide 34 H, Anion Gap 8.6, BU
[2021-03-16 12:16] LABS: POC Glucose,Bedside 109 (70-110)
--- NOTE | 2021-03-16 18:47 | PC.NURSE ---
PT IS ABLE TO ANSWER ORIENTATION QUESTIONS BUT HAS EPISODES OF CONFUSION AND WILL CALL OUT FOR DIFFERENT PEOPLE. SHE IS DELUSIONAL AT TIMES AND REQUIRES RE-ORIENTATION TO PLACE AND SITUATION. SHE SPENT SOME TIME UP TO THE CHAIR AND TOLERATED WELL. PILLS THAT COULD BE CRUSHED WERE MIXED WITH APPLESAUCE AND OTHERS WERE TAKEN ONE AT A TIME. SHE HAS BEEN INCONTINENT OF BLADDER THIS SHIFT. ACHS FSBS BUT SHE HAS NOT REQUIRED COVERAGE. 2+ EDEMA NOTED TO BLE WITH PALPABLE PULSES. O2 WAS SUCCESSFULLY WEANED TO 2LNC AND HER O2 HAS REMAINED IN LOW 90'S T/O SHIFT.
[2021-03-17] VITALS (7 sets, daily range): BP systolic 147–168; BP diastolic 78–89; PULSE 79–109; RESP 17–22; TEMP 36.8–37.2; O2SAT 90–94; BMI 39.7
[2021-03-17 00:57] LABS: POC Glucose,Bedside 110 (70-110)
[2021-03-17 00:57] LABS: POC Glucose,Bedside 149 (70-110)
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
[2021-03-17 05:55] LABS: POC Glucose,Bedside 105 (70-110)
[2021-03-17 07:28] LABS: Anion Gap 9.7 mEq/L (5-15); Blood Urea Nitrogen 5 mg/dl (7-17); Calcium 9.1 mg/dl (8.4-10.2); Carbon Dioxide 31 mmol/L (22.0-30.0); Chloride 100 mmol/L (98-107); Creatinine Clearance Estimated 107 mL/min (50-200); Estimated Glomerular Filt Rate 102 ml/min (>60); GFR (African American) 123 ML/MIN (>60); Glucose 106 mg/dl (74-100); Sodium 138 mmol/L (136-145)
[2021-03-17 07:33] LABS: Potassium 2.7 mmoL/L (3.5-5.1)
[2021-03-17 07:43] LABS: Basophils % 0.7 % (0.1-2.0); Eosinophils # 0.1 K/mm3 (0.0-0.4); Eosinophils % 2.4 % (0.1-12.0); Hematocrit 30.1 % (37.0-47.0); Hemoglobin 9.1 g/dL (12.2-16.2); Lymphocytes # 1.1 K/mm3 (0.7-4.5); Lymphocytes % 26.4 % (10-50); Mean Corpuscular HGB Conc 30.1 g/dL (31.8-35.4); Mean Corpuscular Hemoglobin 31.5 pg (27.0-31.2); Mean Corpuscular Volume 104.4 fl (81-99); Mean Platelet Volume 6.6 fl (7.4-10.4); Monocytes # 0.4 K/mm3 (0.1-1.0); Neutrophils # 2.7 K/mm3 (1.8-7.8); Neutrophils % 61.5 % (37.0-80.0); Platelet Count 306 K/mm3 (142-424); Red Blood Count 2.88 M/mm3 (4.20-5.40); Red Cell Distribution Width 13.9 % (11.5-17.5); White Blood Count 4.3 K/mm3 (4.8-10.8)
[2021-03-17 11:07] LABS: POC Glucose,Bedside 123 (70-110)
--- NOTE | 2021-03-17 12:47 | HMH.DCSUM ---
General - General Admission date:: 03/13/21 Discharge date: 03/17/21 HPI HPI: 60-year-old female with c/o cough, fever and sputum production. Chandler has a past medical history of hypertension, hyperlipidemia, neurogenic bladder requiring frequent catheterization, recent urinary tract infection treated at halfway and dementia. She states that she has had 3 to 4 days of increasing cough and difficulty breathing with sputum production as well as fever. She denies any headache or vision changes, orthopnea or paroxysmal nocturnal dyspnea, abdominal pain, nausea vomiting, changes in urinary or bowel habits, no extremity swelling or pain. She recently completed a course of antibiotics for treatment of urinary tract infection. Pt is not o2 dep and is requiring o2 at 5 liters nc to maintain o2 sats. Patient admitted for pneumonia and further work up. Hospital Course Hospital Course: Laboratory Tests 03/13/21 03/13/21 03/13/21 13:01 13:11 13:11 WBC 6.8 RBC 2.80 L Hgb 9.1 L Hct 30.4 L MCV 108.9 H MCH 32.5 H MCHC 29.8 L RDW 14.7 Plt Count 336 MPV 7.9 Neut % (Auto) 81.0 H Lymph % (Auto) 11.0 [place] % (Auto) 6.5 Eos % (Auto) 1.0 Baso % (Auto) 0.5 Neut # (Auto) 5.5 Lymph # (Auto) 0.7 [place] # (Auto) 0.4 Eos # (Auto) 0.1 Baso # (Auto) 0.0 VBG pH 7.42 H VBG pCO2 43.8 VBG pO2 151.2 H VBG HCO3 27.6 VBG Total CO2 29.0 H VBG O2 Saturation 99.8 H VBG Base Excess 3.1 H Sodium 138 Potassium 4.8 Chloride 102 Carbon Dioxide 32 H Anion Gap 8.8 BUN 9 Creatinine 0.60 Estimated Creat Clear 57 Estimated GFR 102 Est GFR ( Amer) 123 Glucose 92 POC Glucose Lactate Calcium 8.9 Total Bilirubin 0.7 AST 35 ALT 16 Alkaline Phosphatase 82 Troponin I < 0.01 NT-Pro-B Natriuret Pep Total Protein 6.0 L Albumin 3.3 L Globulin 2.7 Albumin/Globulin Ratio 1.2 Procalcitonin Urine Color Urine Appearance Urine pH Ur Specific [place] Urine Protein Urine Glucose (UA) Urine Ketones Urine Blood Urine Nitrate Urine Bilirubin Urine Urobilinogen Ur Leukocyte Esterase Urine WBC Ur Squamous Epith Cells Amorphous Sediment Urine Bacteria Vancomycin Peak Vancomycin Trough SARS-CoV-2 (PCR) Influenza A Untype (PCR) Influenza Type B (PCR) 03/13/21 03/13/21 03/13/21 13:11 15:32 16:20 WBC RBC Hgb Hct MCV MCH MCHC RDW Plt Count MPV Neut % (Auto) Lymph % (Auto) [place] % (Auto) Eos % (Auto) Baso % (Auto) Neut # (Auto) Lymph # (Auto) [place] # (Auto) Eos # (Auto) Baso # (Auto) VBG pH VBG pCO2 VBG pO2 VBG HCO3 VBG Total CO2 VBG O2 Saturation VBG Base Excess Sodium Potassium Chloride Carbon Dioxide Anion Gap BUN Creatinine Estimated Creat Clear Estimated GFR Est GFR ( Amer) Glucose POC Glucose Lactate 0.7 Calcium Total Bilirubin AST ALT Alkaline Phosphatase Troponin I < 0.01 NT-Pro-B Natriuret Pep Total Protein Albumin Globulin Albumin/Globulin Ratio Procalcitonin Urine Color Urine Appearance Urine pH Ur Specific [place] Urine Protein Urine Glucose (UA) Urine Ketones Urine Blood Urine Nitrate Urine Bilirubin Urine Urobilinogen Ur Leukocyte Esterase Urine WBC Ur Squamous Epith Cells Amorphous Sediment Urine Bacteria Vancomycin Peak Vancomycin Trough SARS-CoV-2 (PCR) Not detected Influenza A Untype (PCR) Not detected Influenza Type B (PCR) Not detected 03/13/21 03/13/21 03/13/21 16:44 18:55 20:02 WBC RBC Hgb Hct MCV MCH MCHC RDW Plt Count MPV Neut % (Auto) Lymph % (Auto) [place] % (Auto) Eos % (Auto)
--- NOTE | 2021-03-17 13:22 | HMH.PULMPN ---
Internal Medicine - PN: Subj *Date: 03/17/21 *Time: 13:22 Interval history: No acute respiratory events overnight. Patient weaned to room air. Exam - Constitutional Constitutional:: Present: no acute distress, comfortable - HENMT Exam HENMT: Present: normocephalic, atraumatic - Eye Exam Eyes:: Present: normal appearance both eyes and related structures - Neck Exam Neck:: Present: normal visual inspection - Respiratory Exam Respiratory:: Present: able to speak in complete sentences, no respiratory distress, crackles - Cardiovascular Exam Cardiac:: Present: S1, S2 - GI Exam GI:: Present: soft, obese - Skin Exam Skin: Present: warm, no rash - Neurological Exam Neurological: Present: alert, awake, normal cognition - Extremities Exam Extremities: Present: no cyanosis, no clubbing, edema Assessment and Plan (1) Pneumonia Status: Acute Category: Medical Code(s): J18.9 - Pneumonia, unspecified organism (2) Diabetes type 2, controlled Status: Acute Qualifiers: Diabetes mellitus senior care insulin use: without terminal clerk use Diabetes mellitus complication status: with skin complications Diabetes mellitus complication detail: with other skin ulcer Qualified Code(s): E11.622 - Type 2 diabetes mellitus with other skin ulcer Category: Medical Code(s): E11.9 - Type 2 diabetes mellitus without complications (3) Obesity Status: Acute Qualifiers: Obesity type: due to excess calories Obesity classification: adult class 3 (BMI >= 40) Serious obesity comorbidity presence: with serious comorbidity Body mass index: BMI 40.0-44.9 Qualified Code(s): E66.01 - Morbid (severe) obesity due to excess calories; Z68.41 - Body mass index [BMI] 40.0-44.9, adult Category: Medical Code(s): E66.9 - Obesity, unspecified (4) HTN (hypertension) Status: Chronic Qualifiers: Hypertension type: essential hypertension Category: Medical Code(s): I10 - Essential (primary) hypertension (5) Poor venous access Status: Acute Category: Medical Code(s): I87.8 - Other specified disorders of veins (6) Anemia Status: Acute Qualifiers: Anemia type: unspecified type Qualified Code(s): D64.9 - Anemia, unspecified Category: Medical Code(s): D64.9 - Anemia, unspecified (7) LANCE (obstructive sleep apnea) Status: Acute Category: Medical Code(s): G47.33 - Obstructive sleep apnea (adult) (pediatric) (8) Pickwickian syndrome Status: Chronic Category: Medical Code(s): E66.2 - Morbid (severe) obesity with alveolar hypoventilation - Assessment and plan all Dx Assessment and Plan for all problems:: #Hospital-acquired pneumonia: #Acute hypoxic respiratory failure: 60-year-old with no significant smoking history following in pulmonary clinic for exertional dyspnea, wheezing without diagnosis of asthma and presumed remote history of sarcoidosis recent discharge for pneumonia and possible volume overload during which improved antibiotics and diuresis presented to the clinic again with worsening respiratory distress. Patient during the last discharge was supposed to follow-up with cardiology to evaluate for possible congestive heart failure. Chest x-ray on admission showed cardiomegaly with bilateral lower lobe infiltrates and pleural effusion along with volume overload. CTA performed that did not change evidence of pulmonary embolus however showed bilateral pleural effusions right greater than left with lower lobe atelectasis/airspace disease along with upper lobe predominant groundglass opacities. COVID-19 and influenza PCR negative. Patient also has central line placed secondary to lack of IV access and failed PICC line attempt. ABG on admission did not show any evidence of hypoxic or hypercarbic respiratory failure. Patient was initiated on vancomycin and Zosyn on admission eventually deescalated to levofloxacin. Sputum cultures no growth so far along with her blood cultures.
== END 2021-03-17 15:25 | DRG 177 ==
LOC: ER 13:31 → 2ND 15:16
PROVIDERS: Internal Medicine Pulmonary Disease; Nurse Practitioner Family; Admitting Provider Emergency Medicine; Emergency Provider Student in an Organized Health Care Education/Training Program; Visit Provider Emergency Medicine
DX: J15.212 Pneumonia due to Methicillin resistant Staphylococcus aureus (principal); J96.01 Acute respiratory failure with hypoxia; Z68.41 Body mass index [BMI] 40.0-44.9, adult; J44.0 Chronic obstructive pulmonary disease with (acute) lower respiratory infection; Z20.822 Contact with and (suspected) exposure to COVID-19; E78.5 Hyperlipidemia, unspecified; N31.9 Neuromuscular dysfunction of bladder, unspecified; E11.8 Type 2 diabetes mellitus with unspecified complications; I10 Essential (primary) hypertension; D64.9 Anemia, unspecified; G47.33 Obstructive sleep apnea (adult) (pediatric); E87.6 Hypokalemia; E87.70 Fluid overload, unspecified
CPT/HCPCS: 36556; 36415; 70450; 71045; 71275; 80048; 80053; 80202; 81001; 82803; 82962; 83605; 83880; 84145; 84484; 85025; 87040; 87070; 87081; 87086; 87186; 87205; 93306; 94640; 94761; 96365; 97162; 97530; 99284; C1751; C9803; J1956; J2543; J3370; Q9967; U0003; U0005

== ENCOUNTER → 2021-03-18 21:38 | Outpatient (CLI) | payer MEDICARE, MEDICAID, SELFPAY ==
[2021-03-18 22:05] LABS: Microscopic, Urine URINE MICROSCOPIC (MICROSCOPIC)
[2021-03-18 22:13] LABS: Appearance,Urine SL CLOUDY (Clear); Blood, Urine TRACE-I (Negative); Color,Urine ORANGE (Yellow); Glucose,Urine (UA) TRACE (Negative); Ketones,Urine TRACE (Negative); Leukocyte Esterase,Urine Negative (Negative); Nitrate,Urine POSITIVE (Negative); Protein,Urine 1+ (Negative)
[2021-03-18 22:14] LABS: Bilirubin,Urine 1+ (Negative)
[2021-03-18 22:24] LABS: Bacteria,Urine 1+ /lpf; RBC,Urine Occasional #/hpf (0-3); Squamous Epithelial Cell,Urine Occasional #/hpf (0-5)
== END ==
PROVIDERS: PCP Emergency Medicine; Visit Provider Emergency Medicine
DX: N39.0 Urinary tract infection, site not specified (principal)
CPT/HCPCS: 81001; 87086

== ENCOUNTER → 2021-03-29 07:24 | Outpatient (CLI) | payer MEDICARE, MEDICAID, SELFPAY ==
--- NOTE | 2021-03-29 | CA_ITS ---
APPROVED REPORT Exam: Pharmacologic Technologist: Paris Saenz Ht: 5 ft 6 in Wt: 247 lbs BSA: 2.19 m2 HR: 56 bpm BP: 128/53 mmHg Medical History Medications: Omeprazole,,,,, Atenolol,,,,, Ferrous sulfate,,,,, Gabapentin,,,,, Diazepam,,,,, Duoneb,,,,, Terazosin,,,,, Albuterol,,,,, Sucralfate,,,,, Montelukast,,,,, Acetaminophen,,,,, DulOXETINE,,,,, Stress Test Details Test: LEXISCAN HR Resting HR: 60 bpm Max Heart Rate (APMHR): 158.625782 bpm Max HR Achieved: 73 bpm Target HR (85% APMHR): 134.952551 bpm % of APMHR: 46.20 Recovery HR: 69 bpm BP Resting BP: 128.0/53.0 mmHg Max BP: 128.0/53.0 mmHg Recovery BP: 96.0/57.0 mmHg ECG Resting ECG: Sinus bradycardia Clinical Reason for Termination: Completed Protocol Exercise duration: 04:08 min Highest Stage Achieved: Stress ECG Conclusion Non-diagnostic lexiscan stress test. Patient received the infusion per protocol without chest pain, ST segment changes or arrhythmias. See the nuclear report for futher information. Test Summary REST . . . . . . . Resting REST 05:17 . . 60 . 128/ 53 . . Stage 1 01:00 . . 55 . . . . Stage 2 01:00 . . 65 . . . . Stage 3 01:00 . . 71 . 93/ 39 . . Stage 4 01:00 . . 67 . . . . Stage 4 01:08 . . 68 . 98/ 44 . Stop exercise at 04:08 RECOVERY 01:00 . . 68 . . . . RECOVERY 02:00 . . 68 . 97/ 48 . . RECOVERY 03:00 . . 66 . 97/ 48 . . RECOVERY 04:00 . . 68 . 96/ 57 . . RECOVERY 05:00 . . 68 . 96/ 57 . . RECOVERY 05:18 . . 66 . 96/ 57 . . Electronically signed by : Lj Pimentel MD 03/29/2021 18:58:12
--- NOTE | 2021-03-29 07:32 | NM_ITS ---
APPROVED REPORT Exam: Nuclear Stress Test Indication: SOB, HTN, Family history Patient Location: Outpatient Stress Tech: Paris Saenz NM Tech:Monica Perez, ARRT, RT (R)(N) Ht: 5 ft 6 in Wt: 247 lbs Bra Size: B HR: 60 bpm BP: 128/53 mmHg BSA: 2.19 m2 BMI: 39.8 History: SOB, HTN, Family history Procedure: Patient received a 0.4 mg of intravenous Lexiscan, resting heart rate 60 bpm, resting blood pressure 128/53 mmHg, with Lexiscan maximum heart rate achived was 73 bpm which is Less than 85 % of the maximum predicted heart rate and blood pressure was 128/53 mmHg. With Lexiscan, patient denied any complaint of chest pain. Electrocardiogram Resting electrocardiogram shows sinus rhythm, with Lexiscan there is less than 1.[address] segment depression noted from the baseline EKG. The EKG portion of the Lexiscan is nondiagnostic. Cardiac Stress and Resting SPECT Images: Cardiac Stress and Resting SPECT images were obtained using technetium 99m Myoview 29.1 mCi stress and 9.57 mCi at rest. Patient unable to lay on belly for Prone images. Gated SPECT for analysis of segmental wall motion and calculation of the ejection fraction also done. Cardiac stress and resting SPECT images show uniform myocardial activity without segmental perfusion abnormality, compared right ejection fraction is 47% with no regional wall motion abnormality, right ventricle is normal size and contractility. Conclusion: 1. The EKG portion of the Lexiscan is nondiagnostic. 2. No scintigraphic evidence of reversible ischemia seen, computer derived ejection fraction is 47% with no regional wall motion abnormality, right ventricle is normal size and contractility. 3. Normal Lexiscan Myoview study. Electronically signed by : Lj Pimentel MD 03/29/2021 19:22:45
--- NOTE | 2021-03-29 11:09 | HMH.ITSHM ---
Current Home Medications as stated by this patient Johanny Molina or physician representative. []ATENOLOL BETHANECHOL BUDESONIDE DIAZEPAM IRON FLUDROCORTISONE FLUTICASONE GABAPENTIN LAMOTRIGINE LORATADINE MONTELUKAST OMEGA3 OMEPRAZOLE POTASSIUM QUETAPINE SUCRALFATE TERAZOSIN VITAMIN D3
== END ==
PROVIDERS: PCP Emergency Medicine; Visit Provider Urology
DX: E66.9 Obesity, unspecified (principal); G47.33 Obstructive sleep apnea (adult) (pediatric); I50.9 Heart failure, unspecified; I89.0 Lymphedema, not elsewhere classified; R06.00 Dyspnea, unspecified; I11.0 Hypertensive heart disease with heart failure
CPT/HCPCS: 78452; 93017; A9502; J2785

== ENCOUNTER → 2021-04-01 15:52 | Outpatient (CLI) | payer MEDICARE, MEDICAID, SELFPAY ==
--- NOTE | 2021-04-01 15:52 | CT_ITS ---
PROCEDURE INFORMATION: Exam: CT Chest Without Contrast; Diagnostic Exam date and time: 04/01/2021 3:52 PM Age: 61 years old Clinical indication: Abnormal findings; Lung mass or nodule; Not specified; Patient HX: [address] chest from November 2020; Additional info: 3-month follow-up CT chest from November 2020 TECHNIQUE: Imaging protocol: Diagnostic computed tomography of the chest without contrast. Radiation optimization: All CT scans at this facility use at least one of these dose optimization techniques: automated exposure control; mA and/or kV adjustment per patient size (includes targeted exams where dose is matched to clinical indication); or iterative reconstruction. COMPARISON: CT ANGIO CHEST PE PROTOCOL 03/15/2021 9:49 AM FINDINGS: Lungs: Again, there is a 10 x 8 mm nodule present within the lingula. Series 3, image 38. It is stable in size. There is improved aeration within both lung rodriguez when compared with prior examination. Linear zones of atelectasis or scar identified at the lung bases. Pleural spaces: No pneumothorax. There has been resorption of bilateral pleural effusion seen on prior examination in the interim. Heart: Mild cardiomegaly. No pericardial effusion. Coronary arteries: No evidence of coronary artery calcification. Mediastinal space: No evidence of mediastinal or hilar mass. There is benign calcification of the tracheobronchial tree. Aorta: Unremarkable. No aortic aneurysm. Lymph nodes: Unremarkable. No enlarged lymph nodes. Granulomatous calcification within unenlarged perihilar lymph nodes. Bones/joints: Unremarkable. No acute fracture. Soft tissues: There is a small hiatal hernia noted above the gastroesophageal junction. A spinal cord stimulator unit is in place. IMPRESSION: 1. Improvement in pulmonary volume overload since prior examination. 2. Stable appearing 10 x 8 mm nodule within the lingula. 3. Small hiatal hernia is noted above the gastroesophageal junction. 4. A spinal cord stimulator unit is in place. For both low risk and high risk patients, consider CT Chest at 3 months, PET/CT, or biopsy. (Reference: [place]) References: [place] Hamilton et al. Guidelines for Management of Incidental Pulmonary Nodules Detected on CT Images: From the Fleischner Society 2017. Radiology. 2017;284(1):228-243.
== END ==
PROVIDERS: PCP Emergency Medicine; Visit Provider Internal Medicine Pulmonary Disease
DX: R91.8 Other nonspecific abnormal finding of lung field (principal)
CPT/HCPCS: 71250

== ENCOUNTER → 2021-04-20 21:10 | Outpatient (CLI) | payer MEDICARE, MEDICAID, SELFPAY | PROVIDERS: PCP Emergency Medicine; Visit Provider Specialist | DX: G47.33 Obstructive sleep apnea (adult) (pediatric) (principal); R09.02 Hypoxemia | CPT/HCPCS: 95811 ==

== ENCOUNTER 2021-04-22 14:00 | Outpatient (RCR) | payer MEDICARE, MEDICAID, SELFPAY ==
--- NOTE | 2021-03-23 08:39 | HMH.PTOPWND ---
Rehab Outpt Wound Evaluation Rehab OP Wound Evaluation Start: 03/23/21 08:31 Freq: Status: Active Protocol: Document 03/23/21 08:33 CHELSEA (Rec: 03/23/21 08:39 PHODMITRI [id number]) Electronically Signed By Sawyer West, PT 03/23/21 08:33 Subjective/History History History Pt is 61 yowf who presents with increased B LE edema x ~ 2 wks S/P recent hospital admission for PNA. She had been receiving lymphedema treatment previously with good results due to primary lymphedema worse on L LE. She continues to have mixed fibrotic and 2+pitting edema in B LE. Subjective Subjective Pt reports no c/o pain at this time, 1/4 tenderness to palpation throughout B lower legs. Pt was quite somnolent this am and had difficulty providing hx. Lymphedema Eval Classification of Lymphedema Primary Lymphedema Yes Secondary Lymphedema Yes Stemmer's sign Stemmer's Sign yes Stage of Lymphedema Lymphedema stages Stage III (Non-pitting, fibrosis and sclerosis, skin changes) Skin Changes Dry Skin Yes Skin Folds Yes Hyperkeratosis Yes Redness Yes Discoloration of Skin Yes Other Changes Yes Pain Scale Pain Scale (0-10) 0 Affected Extremities Areas Affected by Lymphedema/Edema Right Lower Extremity,Left Lower Extremity Manual Lymphatic Drainage Treatment Area MLD Treatment Area Right Lower Extremity,Left Lower Extremity Wound Problems/Impairments Impairments Problems/Impairmments Palpation Tenderness,Impaired Endurance,Impaired Transfers, Impaired Gait Pattern,Impaired Walking,Impaired Standing, Increased Edema,Lymphedema Present,Impaired Self Care/ Self Management Prognosis Rehab Potential Good Clinical Impression Consistent with Diagnosis Yes Short Term Goals Number of Weeks 4 Decrease Edema Yes Patient to Understand Lymphedema Yes Treatment and Exercises Decrease Girth
== END 2021-04-22 14:05 | disposition home or self-care (01) ==
LOC: PT 14:00
PROVIDERS: PCP Emergency Medicine; Visit Provider Emergency Medicine
DX: I89.0 Lymphedema, not elsewhere classified (principal)
CPT/HCPCS: 97140; 97162

== ENCOUNTER → 2021-05-18 10:36 | Outpatient (CLI) | payer MEDICARE, MEDICAID, SELFPAY ==
[2021-05-18 11:06] LABS: ABG Base Excess 2.9 mmol/L (-2.4-2.3); ABG HCO3 28.7 mmhg (22.0-26.0); ABG Oxygen Saturation 87 % (90-100); ABG PH 7.34 mmol/L (7.35-7.45); ABG PO2 52.4 mmhg (80-100); ABG TCO2 30.4 mmhg (23-27)
[2021-05-18 11:09] LABS: Allen's Test Acceptable; Oxygen RA %; Source Left Radial
[2021-05-18 11:14] LABS: ABG PCO2 54.7 mmhg (35.0-45.0)
== END ==
PROVIDERS: Visit Provider Emergency Medicine
DX: G47.33 Obstructive sleep apnea (adult) (pediatric) (principal)
CPT/HCPCS: 82803

== ENCOUNTER 2021-05-18 12:28 | Emergency (ER) | payer MEDICARE, MEDICAID, SELFPAY ==
[2021-05-18] VITALS (11 sets, daily range): BP systolic 107–162; BP diastolic 66–89; PULSE 53–63; RESP 18; TEMP 36.8; O2SAT 91–100; BMI 41.3
--- NOTE | 2021-05-18 12:47 | XR_ITS ---
FINAL REPORT CLINICAL HISTORY: cough FINDINGS: SINGLE VIEW CHEST. There is mild cardiomegaly. The mediastinum is unremarkable. There are patchy bibasilar airspace infiltrates consistent with acute pneumonia. There is no pneumothorax. IMPRESSION: Findings are consistent with acute pneumonia. Reviewed, Interpreted and Dictated by Kevin Kemp MD Transcribed by Mariluz Damon Authenticated by Kevin Kemp MD on 05/18/2021 01:37:[address] [facility]
--- NOTE | 2021-05-18 13:16 | PC.NURSE ---
lab at bedside
--- NOTE | 2021-05-18 13:21 | PC.NURSE ---
Airplane Cleaner at bedside
--- NOTE | 2021-05-18 13:46 | PC.NURSE ---
lab still at bedside
[2021-05-18 14:13] LABS: Basophils # 0.1 K/mm3 (0-0.2); Basophils % 2.1 % (0.1-2.0); Eosinophils # 0.2 K/mm3 (0.0-0.4); Eosinophils % 4.5 % (0.1-12.0); Hematocrit 39.2 % (37.0-47.0); Hemoglobin 12.5 g/dL (12.2-16.2); Lymphocytes # 0.8 K/mm3 (0.7-4.5); Mean Corpuscular HGB Conc 31.8 g/dL (31.8-35.4); Mean Corpuscular Hemoglobin 31.3 pg (27.0-31.2); Mean Corpuscular Volume 98.5 fl (81-99); Mean Platelet Volume 7.5 fl (7.4-10.4); Monocytes # 0.3 K/mm3 (0.1-1.0); Monocytes % 7.5 % (1.7-9.3); Neutrophils # 2.2 K/mm3 (1.8-7.8); Platelet Count 195 K/mm3 (142-424); Red Blood Count 3.98 M/mm3 (4.20-5.40); White Blood Count 3.4 K/mm3 (4.8-10.8)
[2021-05-18 14:24] LABS: Chloride 101 mmol/L (98-107); Potassium 4.1 mmoL/L (3.5-5.1); Sodium 139 mmol/L (136-145)
[2021-05-18 14:27] LABS: Alanine Aminotransferase 16 U/L (12-78); Albumin/Globulin Ratio 1.4 (1.1-1.8); Alkaline Phosphatase 77 U/L (38-126); Anion Gap 12.1 mEq/L (5-15); Aspartate Amino Transferase 32 U/L (14-36); Bilirubin,Total 0.3 mg/dl (0.2-1.3); Blood Urea Nitrogen 15 mg/dl (7-17); Carbon Dioxide 30 mmol/L (22.0-30.0); Creatinine Clearance Estimated 55 mL/min (50-200); Estimated Glomerular Filt Rate 73 ml/min (>60); GFR (African American) 88 ML/MIN (>60); Globulin 2.8 g/dL (1.3-3.2); Total Protein,Serum 6.8 g/dl (6.3-8.2)
[2021-05-18 14:28] LABS: Calcium 9.4 mg/dl (8.4-10.2); Glucose 83 mg/dl (74-100)
[2021-05-18 14:43] LABS: Troponin I < 0.01 ng/ml (0.00-0.034)
[2021-05-18 14:58] LABS: NT Pro Brain Natriuretic Pep. 414 pg/mL (0-125)
--- NOTE | 2021-05-18 15:12 | HMH.EDGENADL ---
ED Disposition Clinical Impression: Right lower lobe pneumonia Qualifiers: Pneumonia type: due to unspecified organism Qualified Code(s): J18.9 - Pneumonia, unspecified organism Disposition: Xfer SNF Condition on Discharge: Fair Instructions: Pneumonia-Adult Prescriptions: Doxycycline Monohydrate [Doxycycline [place] 100mg Tab] 100 mg PO BID #20 tab Transmission Status: Pending to [facility] Referrals: Casimiro Barraza MD [Primary Care Provider] - - Critical Care Critical Care Time: No Attestation: On 05/18/21, the high probability of a clinically significant, sudden or life threatening deterioration of the following system(s) required my full and direct attention, intervention and personal management. The time I documented below is in addition to time spent performing reported procedures but includes the following listed in this critical care notation. Medical Decision Making - Medical Records Medical records reviewed: Yes: I reviewed the patient's medical records. - Addison Inquiry Pt receiving controlled substance: No Vital Signs: 05/18/21 12:28 05/18/21 12:42 05/18/21 13:01 Temperature 98.2 F Temperature Source Oral Pulse Rate 61 59 L Pulse Rate [Right Radial] 58 L Respiratory Rate 18 Blood Pressure 136/80 121/71 Blood Pressure [Right Arm] 136/80 Blood Pressure Mean [Right Arm] 98 Blood Pressure Source [Right Arm] Automatic Cuff Blood Pressure Position [Right Arm] Sitting 02 Sat by Pulse Oximetry 91 L 100 96 Oxygen Delivery Method Room Air Nasal Cannula Nasal Cannula Oxygen Flow Rate (LPM) 2 05/18/21 13:31 05/18/21 14:06 05/18/21 14:15 Temperature Temperature Source Pulse Rate 56 L 56 L 53 L Pulse Rate [Right Radial] Respiratory Rate Blood Pressure 130/73 107/68 L 111/74 Blood Pressure [Right Arm] Blood Pressure Mean [Right Arm] Blood Pressure Source [Right Arm] Blood Pressure Position [Right Arm] 02 Sat by Pulse Oximetry 97 96 94 L Oxygen Delivery Method Nasal Cannula Nasal Cannula Nasal Cannula Oxygen Flow Rate (LPM) 2 2 2 05/18/21 15:00 05/18/21 15:30 Temperature Temperature Source Pulse Rate 57 L 63 Pulse Rate [Right Radial] Respiratory Rate Blood Pressure 107/66 L 125/79 Blood Pressure [Right Arm] Blood Pressure Mean [Right Arm] Blood Pressure Source [Right Arm] Blood Pressure Position [Right Arm] 02 Sat by Pulse Oximetry 93 L 97 Oxygen Delivery Method Nasal Cannula Nasal Cannula Oxygen Flow Rate (LPM) 2 2 - Lab Data Lab Results 05/18/21 14:00: WBC 3.4 L, RBC 3.98 L, Hgb 12.5, Hct 39.2, MCV 98.5, MCH 31.3 H, MCHC 31.8, RDW 13.0, Plt Count 195, MPV 7.5, Neut % (Auto) 63.0, Lymph % (Auto) 23.0, [place] % (Auto) 7.5, Eos % (Auto) 4.5, Baso % (Auto) 2.1 H, Neut # (Auto) 2.2, Lymph # (Auto) 0.8, [place] # (Auto) 0.3, Eos # (Auto) 0.2, Baso # (Auto) 0.1 05/18/21 14:00: Sodium 139, Potassium 4.1, Chloride 101, Carbon Dioxide 30, Anion Gap 12.1, BUN 15, Creatinine 0.80, Estimated Creat Clear 55, Estimated GFR 73, Est GFR ( Amer) 88, Glucose 83, Calcium 9.4, Total Bilirubin 0.3, AST 32, ALT 16, Alkaline Phosphatase 77, Troponin I < 0.01, Total Protein 6.8, Albumin 4.0, Globulin 2.8, Albumin/Globulin Ratio 1.4 05/18/21 14:00: NT-Pro-B Natriuret Pep 414 H 05/18/21 15:15: SARS-CoV-2 (PCR) Not detected, Influenza A Untype (PCR) Not detected, Influenza Type B (PCR) Not detected Result diagrams: 05/18/21 14:00 05/18/21 14:00 Orders (Tests/Meds): ED MEDICATIONS Discontinued Medications Generic Name Dose Route Start Last Admin Trade Name Freq PRN Reason Stop Dose Admin Doxycycline Hyclate 100 mg 05/18/21 16:34 Doxycycline Hycl 100 Mg Tablet PO 05/18/21 16:35 ONCE STA ORDERS Category Date Time Status Troponin I Q3H Lab 05/18/21 16:00 Ordered Troponin I Q3H Lab 05/18/21 19:00 Ordered - Radiology Data #1 Image(s): Chest Image Reviewed: Yes I reviewed the patie
[2021-05-18 15:23] LABS: Coronavirus 19, PCR Not Detected (NotDetected); Influenza A, PCR Not Detected (NotDetected); Influenza B, PCR Not Detected (NotDetected)
--- NOTE | 2021-05-18 18:27 | PC.NURSE ---
Called report to Josefina at [place]
== END 2021-05-18 18:45 ==
PROVIDERS: Emergency Provider Emergency Medicine; PCP Emergency Medicine
DX: J18.9 Pneumonia, unspecified organism (principal); R06.02 Shortness of breath
CPT/HCPCS: 36415; 71045; 80053; 82803; 83880; 84484; 85025; 99283; C9803; U0003; U0005

== ENCOUNTER → 2021-05-27 14:22 | Outpatient (CLI) | payer MEDICARE, MEDICAID, SELFPAY ==
[2021-05-27 14:26] LABS: Microscopic, Urine URINE MICROSCOPIC (MICROSCOPIC)
[2021-05-27 14:31] LABS: Appearance,Urine CLEAR (Clear); Bilirubin,Urine Negative (Negative); Blood, Urine TRACE-I (Negative); Color,Urine YELLOW (Yellow); Glucose,Urine (UA) Negative (Negative); Ketones,Urine Negative (Negative); Leukocyte Esterase,Urine 2+ (Negative); Nitrate,Urine POSITIVE (Negative); Protein,Urine Negative (Negative); Urobilinogen,Urine 0.2 EU/dl (0.2)
[2021-05-27 15:18] LABS: Bacteria,Urine 4+ /lpf; RBC,Urine Occasional #/hpf (0-3); WBC,Urine 20-50 #/hpf (0-3)
== END ==
PROVIDERS: Visit Provider Emergency Medicine
DX: R30.9 Painful micturition, unspecified (principal); N39.0 Urinary tract infection, site not specified; B96.20 Unspecified Escherichia coli [E. coli] as the cause of diseases classified elsewhere
CPT/HCPCS: 81001; 87086; 87088; 87186

== ENCOUNTER → 2021-06-15 22:06 | Outpatient (CLI) | payer MEDICARE, MEDICAID, SELFPAY | PROVIDERS: Visit Provider Emergency Medicine | DX: Z20.822 Contact with and (suspected) exposure to COVID-19 (principal) | CPT/HCPCS: C9803; U0003; U0005 ==

== ENCOUNTER → 2021-06-16 22:51 | Outpatient (CLI) | payer MEDICARE, MEDICAID, SELFPAY | PROVIDERS: PCP Emergency Medicine; Visit Provider Nurse Practitioner Family | DX: Z20.822 Contact with and (suspected) exposure to COVID-19 (principal) | CPT/HCPCS: C9803; U0003; U0005 ==

== ENCOUNTER 2021-09-07 00:20 | Emergency (ER) | payer MEDICARE, MEDICAID, SELFPAY ==
[2021-09-07 00:04] VITALS: BP 163/91; PULSE 87; RESP 18; TEMP 36.8; O2SAT 93; BMI 51.5
--- NOTE | 2021-09-07 00:47 | CT_ITS ---
PROCEDURE INFORMATION: Exam: CT Abdomen And Pelvis With Contrast Exam date and time: 09/07/2021 2:20 AM Age: 61 years old Clinical indication: Abdominal pain; Prior surgery; Additional info: Abd pain TECHNIQUE: Imaging protocol: Computed tomography of the abdomen and pelvis with contrast. Radiation optimization: All CT scans at this facility use at least one of these dose optimization techniques: automated exposure control; mA and/or kV adjustment per patient size (includes targeted exams where dose is matched to clinical indication); or iterative reconstruction. Contrast material: ISOVUE; Contrast volume: 75 ml; Contrast route: IV; COMPARISON: CR XR PELVIS 1-2V 02/12/2021 11:59 AM FINDINGS: Lungs: Some scarring and atelectasis is seen in the lung bases bilaterally. Diaphragm: Moderate size hiatal hernia is noted. Liver: Normal. No mass. Gallbladder and bile ducts: The patient is status post cholecystectomy. Pancreas: Normal. No ductal dilation. Spleen: Normal. No splenomegaly. Adrenal glands: Normal. No mass. Kidneys and ureters: Normal. No hydronephrosis. Stomach and bowel: A moderate amount of retained stool is seen throughout the colon. Appendix: No evidence of appendicitis. Intraperitoneal space: Unremarkable. No free air. No significant fluid collection. Arteries: Unremarkable. No abdominal aortic aneurysm. Lymph nodes: Unremarkable. No enlarged lymph nodes. Urinary bladder: Unremarkable as visualized. Reproductive: The patient is status post hysterectomy. Bones/joints: Implantable spinal infusion pump is present in the left lower back. Soft tissues: Unremarkable. IMPRESSION: 1. No acute process to explain the patient's abdominal pain. 2. Moderate-sized hiatal hernia. 3. Status post cholecystectomy. 4. Moderate amount of stool seen throughout the colon and rectum.
[2021-09-07 00:54] LABS: Microscopic, Urine URINE MICROSCOPIC (MICROSCOPIC)
[2021-09-07 00:56] LABS: Appearance,Urine CLEAR (Clear); Bilirubin,Urine Negative (Negative); Blood, Urine Negative (Negative); Color,Urine YELLOW (Yellow); Glucose,Urine (UA) Negative (Negative); Ketones,Urine Negative (Negative); Leukocyte Esterase,Urine TRACE (Negative); Nitrate,Urine Negative (Negative); PH,Urine 7.5 (5.0-8.5); Protein,Urine Negative (Negative); Urobilinogen,Urine 0.2 EU/dl (0.2)
[2021-09-07 01:13] LABS: Bacteria,Urine 1+ /lpf; Mucus,Urine 1+ /lpf
--- NOTE | 2021-09-07 01:13 | PC.NURSE ---
#20 to right upper arm with multiple attempts. Alisa Dawkins attempted US guided x 3.
--- NOTE | 2021-09-07 01:14 | PC.NURSE ---
LAB at bedside
--- NOTE | 2021-09-07 01:22 | HMH.EDNVD ---
ED Disposition Clinical Impression: Abdominal pain Qualifiers: Abdominal location: generalized Qualified Code(s): R10.84 - Generalized abdominal pain Disposition: Home, Self-Care Condition on Discharge: Good Instructions: DI for Acute Abdominal Pain Additional Instructions: resume prev orders Referrals: Casimiro Barraza MD [Primary Care Provider] - - Critical Care Critical Care Time: No Attestation: On 09/07/21, the high probability of a clinically significant, sudden or life threatening deterioration of the following system(s) required my full and direct attention, intervention and personal management. The time I documented below is in addition to time spent performing reported procedures but includes the following listed in this critical care notation. Medical Decision Making - Medical Records Medical records reviewed: Yes: I reviewed the patient's medical records. - Addison Inquiry Pt receiving controlled substance: No Vital Signs: 09/07/21 00:04 09/07/21 02:30 09/07/21 03:00 Temperature 98.3 F Temperature Source Oral Pulse Rate 72 Pulse Rate [Right] 87 Respiratory Rate 18 Blood Pressure 185/105 H 157/91 H Blood Pressure [Right Arm] 163/91 H Blood Pressure Mean 120 Blood Pressure Mean [Right Arm] 115 02 Sat by Pulse Oximetry 93 L 94 L Oxygen Delivery Method Room Air 09/07/21 03:30 Temperature Temperature Source Pulse Rate 78 Pulse Rate [Right] Respiratory Rate Blood Pressure 156/89 H Blood Pressure [Right Arm] Blood Pressure Mean Blood Pressure Mean [Right Arm] 02 Sat by Pulse Oximetry 90 L Oxygen Delivery Method Room Air - Lab Data Lab results reviewed: Yes: I reviewed the patient's lab results. Lab Results 09/07/21 00:29: Urine Color Yellow, Urine Appearance Clear, Urine pH 7.5, Ur Specific [place] 1.010, Urine Protein Negative, Urine Glucose (UA) Negative, Urine Ketones Negative, Urine Blood Negative, Urine Nitrate Negative, Urine Bilirubin Negative, Urine Urobilinogen 0.2, Ur Leukocyte Esterase Trace, Urine RBC 3-5, Urine WBC 3-5, Urine Bacteria 1+, Urine Mucus 1+ 09/07/21 01:20: WBC 6.2, RBC 3.87 L, Hgb 11.5 L, Hct 36.4 L, MCV 94.1, MCH 29.7, MCHC 31.6 L, RDW 14.8, Plt Count 230, MPV 7.6, Neut % (Auto) 69.5, Lymph % (Auto) 22.3, [place] % (Auto) 6.0, Eos % (Auto) 1.1, Baso % (Auto) 1.0, Neut # (Auto) 4.3, Lymph # (Auto) 1.4, [place] # (Auto) 0.4, Eos # (Auto) 0.1, Baso # (Auto) 0.1, ESR 25 09/07/21 01:20: Sodium 137, Potassium 3.5, Chloride 97 L, Carbon Dioxide 36 H, Anion Gap 7.5, BUN 15, Creatinine 0.80, Estimated Creat Clear 50, Estimated GFR 73, Est GFR ( Amer) 88, Glucose 131 H, Calcium 9.6, Total Bilirubin 0.6, AST 23, ALT 18, Alkaline Phosphatase 85, C-Reactive Protein 23.1 H, Total Protein 6.4, Albumin 4.0, Globulin 2.4, Albumin/Globulin Ratio 1.7, Amylase 47, Lipase 71, Procalcitonin 0.044 Result diagrams: 09/07/21 01:20 09/07/21 01:20 Orders (Tests/Meds): ED MEDICATIONS Generic Name Dose Route Start Last Admin Trade Name Freq PRN Reason Stop Dose Admin Lactated Ringer's 1,000 mls @ 999 mls/hr 09/07/21 01:00 Lactated Ringer's 1000 Ml Bag IV 09/07/21 02:00 .Q1H1M OLGA Discontinued Medications Generic Name Dose Route Start Last Admin Trade Name Freq PRN Reason Stop Dose Admin Iopamidol 75 ml 09/07/21 02:29 09/07/21 02:30 Iopamidol-370 (76%);100ml Bottle IV 09/07/21 02:30 75 ml ONCE ONE Administration Sodium Chloride 10 ml 09/07/21 02:29 09/07/21 02:30 Sodium Chloride 0.9% 10ml Syr (Rad Only) IV 09/07/21 02:30 10 ml ONCE ONE Administration ORDERS Category Date Time Status Urine Culture Stat Micro 09/07/21 05:00 Ordered - CT Data CT Scan: Abdomen, Pelvis Time Received: 05:[address] Reviewed: Yes: I have viewed the radiologist's interpretation Preliminary Findings: Abnormal (see report ) Medical Decision Narrative: stable exam and labs with no specific finding Nausea/Vomiting/Dana
[2021-09-07 01:32] LABS: Basophils # 0.1 K/mm3 (0-0.2); Eosinophils # 0.1 K/mm3 (0.0-0.4); Eosinophils % 1.1 % (0.1-12.0); Hematocrit 36.4 % (37.0-47.0); Hemoglobin 11.5 g/dL (12.2-16.2); Lymphocytes # 1.4 K/mm3 (0.7-4.5); Lymphocytes % 22.3 % (10-50); Mean Corpuscular HGB Conc 31.6 g/dL (31.8-35.4); Mean Corpuscular Hemoglobin 29.7 pg (27.0-31.2); Mean Corpuscular Volume 94.1 fl (81-99); Mean Platelet Volume 7.6 fl (7.4-10.4); Monocytes # 0.4 K/mm3 (0.1-1.0); Neutrophils # 4.3 K/mm3 (1.8-7.8); Neutrophils % 69.5 % (37.0-80.0); Platelet Count 230 K/mm3 (142-424); Red Blood Count 3.87 M/mm3 (4.20-5.40); Red Cell Distribution Width 14.8 % (11.5-17.5); White Blood Count 6.2 K/mm3 (4.8-10.8)
[2021-09-07 01:43] LABS: Alanine Aminotransferase 18 U/L (12-78); Albumin/Globulin Ratio 1.7 (1.1-1.8); Alkaline Phosphatase 85 U/L (38-126); Amylase 47 U/L (30-110); Anion Gap 7.5 mEq/L (5-15); Aspartate Amino Transferase 23 U/L (14-36); Bilirubin,Total 0.6 mg/dl (0.2-1.3); Blood Urea Nitrogen 15 mg/dl (7-17); Calcium 9.6 mg/dl (8.4-10.2); Carbon Dioxide 36 mmol/L (22.0-30.0); Chloride 97 mmol/L (98-107); Creatinine Clearance Estimated 50 mL/min (50-200); Estimated Glomerular Filt Rate 73 ml/min (>60); GFR (African American) 88 ML/MIN (>60); Globulin 2.4 g/dL (1.3-3.2); Glucose 131 mg/dl (74-100); Lipase 71 U/L (23-300); Potassium 3.5 mmoL/L (3.5-5.1); Sodium 137 mmol/L (136-145); Total Protein,Serum 6.4 g/dl (6.3-8.2)
[2021-09-07 01:48] LABS: C-Reactive Protein 23.1 mg/L (0-4)
[2021-09-07 02:02] LABS: Procalcitonin 0.044 ng/mL (0.0-2.0)
[2021-09-07 02:16] LABS: Erythrocyte Sedimentation Rate 25 mm/hr (0-30)
[2021-09-07 02:30] VITALS: BP 185/105
[2021-09-07 03:00] VITALS: BP 157/91; PULSE 72; O2SAT 94
[2021-09-07 03:30] VITALS: BP 156/89; PULSE 78; O2SAT 90
--- NOTE | 2021-09-07 05:17 | PC.NURSE ---
Notified [facility] that pt is ready to return to [place]
--- NOTE | 2021-09-07 05:20 | PC.NURSE ---
s/w Daja @ [place], gave report. Pending urine culture & no abx at this time.
[2021-09-07 05:21] VITALS: BP 124/78; PULSE 72; RESP 20; TEMP 36.8; O2SAT 96; O2SAT 99
== END 2021-09-07 05:40 | disposition home or self-care (01) ==
PROVIDERS: Emergency Provider Emergency Medicine; PCP Emergency Medicine
DX: N39.0 Urinary tract infection, site not specified (principal); M54.9 Dorsalgia, unspecified; L03.90 Cellulitis, unspecified; R06.00 Dyspnea, unspecified; R41.0 Disorientation, unspecified; D64.9 Anemia, unspecified; I11.0 Hypertensive heart disease with heart failure; I50.9 Heart failure, unspecified; K21.9 Gastro-esophageal reflux disease without esophagitis; E11.9 Type 2 diabetes mellitus without complications; G89.29 Other chronic pain; G43.909 Migraine, unspecified, not intractable, without status migrainosus; E66.9 Obesity, unspecified; F31.9 Bipolar disorder, unspecified; F41.9 Anxiety disorder, unspecified; Z68.43 Body mass index [BMI] 50.0-59.9, adult; Z79.51 Long term (current) use of inhaled steroids; Z79.899 Other long term (current) drug therapy; Z88.0 Allergy status to penicillin; Z88.1 Allergy status to other antibiotic agents; Z88.5 Allergy status to narcotic agent; Z88.6 Allergy status to analgesic agent; Z88.8 Allergy status to other drugs, medicaments and biological substances; Z82.49 Family history of ischemic heart disease and other diseases of the circulatory system; Z85.828 Personal history of other malignant neoplasm of skin
CPT/HCPCS: 36415; 74177; 80053; 81001; 82150; 83690; 84145; 85025; 85651; 86140; 87086; 99285; Q9967

== ENCOUNTER 2021-11-05 14:26 | Inpatient (IN) | payer MEDICARE, MEDICAID, SELFPAY ==
[2021-11-05] VITALS (23 sets, daily range): BP systolic 79–116; BP diastolic 52–73; PULSE 70–90; RESP 12–22; TEMP 34.6–36.6; O2SAT 86–99; BMI 45.6; BMI 37.5
--- NOTE | 2021-11-05 14:30 | HMH.EDGENADL ---
ED Disposition Clinical Impression: HCAP (healthcare-associated pneumonia), Acute respiratory failure with hypoxia and hypercapnia, Septic shock Disposition: Admitted As Inpatient Condition on Discharge: Critical Referrals: Casimiro Barraza MD [Primary Care Provider] - - Critical Care Critical Care Time: Yes Attestation: On , the high probability of a clinically significant, sudden or life threatening deterioration of the following system(s) required my full and direct attention, intervention and personal management. The time I documented below is in addition to time spent performing reported procedures but includes the following listed in this critical care notation. Total Critical Care Time: 45 Vital system(s) involved:: Respiratory Failure, Shock (Septic) My critical care processes included: Assessment & monitoring of V/S, Initial and Re-exams, Data Review/Interpretation, Coordinating Care, Medication Orders and management, Documentation Medical Decision Making - Addison Inquiry Pt receiving controlled substance: No Vital Signs: 11/05/21 14:27 11/05/21 15:05 11/05/21 15:18 Temperature Temperature Source Pulse Rate 73 80 Pulse Rate [Brachial] 75 Respiratory Rate 14 12 13 Blood Pressure 88/62 L 92/73 L Blood Pressure [Right Arm] 96/59 L Blood Pressure Mean 66 75 Blood Pressure Mean [Right Arm] 71 Blood Pressure Source [Right Arm] Automatic Cuff Blood Pressure Position [Right Arm] Sitting 02 Sat by Pulse Oximetry 86 L 99 98 Oxygen Delivery Method Non-Rebreather BiPAP BiPAP 11/05/21 15:43 11/05/21 15:53 11/05/21 16:00 Temperature 95 F L Temperature Source Rectal Pulse Rate 71 71 Pulse Rate [Brachial] Respiratory Rate 12 12 Blood Pressure 79/54 L 97/52 L Blood Pressure [Right Arm] Blood Pressure Mean 62 67 Blood Pressure Mean [Right Arm] Blood Pressure Source [Right Arm] Blood Pressure Position [Right Arm] 02 Sat by Pulse Oximetry 93 L 95 Oxygen Delivery Method BiPAP BiPAP - Lab Data Lab Results 11/05/21 14:34: Specimen Source Left radial, O2 % 15l, ABG pH 7.17 L*, ABG pCO2 73.0 H, ABG pO2 87.9, ABG HCO3 26.3 H, ABG Total CO2 28.5 H, ABG O2 Saturation 96, ABG Base Excess -2.2, Victor Manuel Test Acceptable 11/05/21 14:44: WBC 15.8 H, RBC 4.33, Hgb 13.3, Hct 43.8, MCV 101.2 H, MCH 30.6, MCHC 30.2 L, RDW 13.0, Plt Count 206, MPV 7.9, Neut % (Auto) 93.3 H, Lymph % (Auto) 1.9 L, [place] % (Auto) 3.8, Eos % (Auto) 0.3, Baso % (Auto) 0.6, Neut # (Auto) 14.8 H, Lymph # (Auto) 0.3 L, [place] # (Auto) 0.6, Eos # (Auto) 0.0, Baso # (Auto) 0.1, Total Counted 100, Neutrophils % (Manual) 90 H, Band Neutrophils % 1.0, Lymphocytes % (Manual) 7 L, Monocytes % (Manual) 2, Platelet Estimate Normal, RBC Morphology Not Reportable, Hypochromasia 2+, Anisocytosis 1+, Macrocytosis 1+ 11/05/21 14:44: Sodium 136, Potassium 4.5, Chloride 100, Carbon Dioxide 28, Anion Gap 12.5, BUN 16, Creatinine 1.00, Estimated GFR 56 L, Est GFR ( Amer) 68, Glucose 136 H, Calcium 9.6, Total Bilirubin 0.9, AST 37 H, ALT 30, Alkaline Phosphatase 62, Troponin I < 0.01, NT-Pro-B Natriuret Pep 796 H, Total Protein 7.0, Albumin 4.1, Globulin 2.9, Albumin/Globulin Ratio 1.4 11/05/21 14:44: Lactate 2.2 H 11/05/21 15:20: Urine Color Yellow, Urine Appearance Clear, Urine pH 6.0, Ur Specific [place] <= 1.005, Urine Protein Negative, Urine Glucose (UA) Negative, Urine Ketones Negative, Urine Blood Negative, Urine Nitrate Negative, Urine Bilirubin Negative, Urine Urobilinogen 0.2, Ur Leukocyte Esterase 1+ A Result diagrams: 11/05/21 14:44 11/05/21 14:44 Orders (Tests/Meds): ED MEDICATIONS Generic Name Dose Route Start Last Admin Trade Name Freq PRN Reason Stop Dose Admin Sodium Chloride 1,920 mls @ 960 mls/hr 11/05/21 15:55 11/05/21 15:55 Sod Chlor 0.9% 1000ml Bag 30 ml/kg infuse over 2 hr (1920 ml) 11/05/21 17:54 960 mls/hr IV Administration .Q2H ONE Ertapenem 1 gm/ Sodium 50 mls @ 100 mls/hr 10/14
--- NOTE | 2021-11-05 14:35 | XR_ITS ---
FINAL REPORT CLINICAL HISTORY: hypoxic COMPARISON: May 18, 2021 FINDINGS: The heart size is normal. The mediastinum is normal. There is right base opacity consistent with pneumonia. There are no pleural effusions. There is no pneumothorax. There is no osseous abnormality. IMPRESSION: Right lung base pneumonia. Reviewed, Interpreted and Dictated by Maikel Santana III, MD Transcribed by Matthew Leahy Authenticated and [facility]
[2021-11-05 14:38] LABS: ABG Base Excess -2.2 mmol/L (-2.4-2.3); ABG HCO3 26.3 mmhg (22.0-26.0); ABG Oxygen Saturation 96 % (90-100); ABG PO2 87.9 mmhg (80-100); ABG TCO2 28.5 mmhg (23-27)
[2021-11-05 14:39] LABS: Allen's Test Acceptable; Oxygen 15L %; Source Left Radial
[2021-11-05 14:41] LABS: ABG PH 7.17 mmol/L (7.35-7.45)
--- NOTE | 2021-11-05 14:52 | ECG_ITS ---
APPROVED REPORT Exam: Resting ECG HR:76 bpm ECG Measurements Heart Rate 76 AXES ID 183 P 75 QRSd 109 QRS 67 QT 417 T 63 QTc 447 Conclusion SINUS RHYTHM WITH OCCASIONAL SUPRAVENTRICULAR PREMATURE COMPLEXES BORDERLINE ECG UNCONFIRMED REPORT Electronically signed by : Francis Magdaleno MD 11/05/2021 17:21:03
[2021-11-05 15:00] LABS: Basophils # 0.1 K/mm3 (0-0.2); Basophils % 0.6 % (0.1-2.0); Eosinophils % 0.3 % (0.1-12.0); Hematocrit 43.8 % (37.0-47.0); Hemoglobin 13.3 g/dL (12.2-16.2); Lymphocytes # 0.3 K/mm3 (0.7-4.5); Lymphocytes % 1.9 % (10-50); MANUAL DIFFERENTIAL MANUAL DIFFERENTIAL (MANUAL DIFF); Mean Corpuscular HGB Conc 30.2 g/dL (31.8-35.4); Mean Corpuscular Hemoglobin 30.6 pg (27.0-31.2); Mean Corpuscular Volume 101.2 fl (81-99); Mean Platelet Volume 7.9 fl (7.4-10.4); Monocytes # 0.6 K/mm3 (0.1-1.0); Monocytes % 3.8 % (1.7-9.3); Neutrophils # 14.8 K/mm3 (1.8-7.8); Neutrophils % 93.3 % (37.0-80.0); Platelet Count 206 K/mm3 (142-424); Red Blood Count 4.33 M/mm3 (4.20-5.40); White Blood Count 15.8 K/mm3 (4.8-10.8)
[2021-11-05 15:00] LABS: Coronavirus 19, PCR Not Detected (NotDetected); Influenza A, PCR Not Detected (NotDetected); Influenza B, PCR Not Detected (NotDetected)
[2021-11-05 15:04] LABS: Chloride 100 mmol/L (98-107); Potassium 4.5 mmoL/L (3.5-5.1); Sodium 136 mmol/L (136-145)
[2021-11-05 15:06] LABS: Alanine Aminotransferase 30 U/L (12-78); Aspartate Amino Transferase 37 U/L (14-36); Blood Urea Nitrogen 16 mg/dl (7-17); Estimated Glomerular Filt Rate 56 ml/min (>60); GFR (African American) 68 ML/MIN (>60)
[2021-11-05 15:07] LABS: Albumin Level 4.1 g/dl (3.5-5.0); Albumin/Globulin Ratio 1.4 (1.1-1.8); Alkaline Phosphatase 62 U/L (38-126); Anion Gap 12.5 mEq/L (5-15); Bilirubin,Total 0.9 mg/dl (0.2-1.3); Calcium 9.6 mg/dl (8.4-10.2); Carbon Dioxide 28 mmol/L (22.0-30.0); Globulin 2.9 g/dL (1.3-3.2); Glucose 136 mg/dl (74-100); Lactic Acid 2.2 mmol/L (0.7-2.1)
[2021-11-05 15:16] LABS: NT Pro Brain Natriuretic Pep. 796 pg/mL (0-125)
--- NOTE | 2021-11-05 15:18 | PC.NURSE ---
Patient hooked up to bear hugger
[2021-11-05 15:23] LABS: Troponin I < 0.01 ng/ml (0.00-0.034)
[2021-11-05 15:40] LABS: Anisocytosis 1+; Hypochromasia 2+; Lymphocytes % 7 % (10-50); Macrocytosis 1+; Monocytes % 2 % (2-9); Neutrophils % 90 % (42-76); Platelet Estimate Normal; Total Cells Counted 100
--- NOTE | 2021-11-05 15:48 | PC.NURSE ---
MD NOTIFIED OF HYPOTENSION, REVIEWING CHART. AWAITING ORDERS
--- NOTE | 2021-11-05 15:50 | PC.NURSE ---
ORDERS FOR SALINE BOLUS PER IDEAL BODY WEIGHT
[2021-11-05 16:15] LABS: Microscopic, Urine URINE MICROSCOPIC (MICROSCOPIC)
[2021-11-05 16:18] LABS: Appearance,Urine CLEAR (Clear); Bilirubin,Urine Negative (Negative); Blood, Urine Negative (Negative); Color,Urine YELLOW (Yellow); Glucose,Urine (UA) Negative (Negative); Ketones,Urine Negative (Negative); Leukocyte Esterase,Urine 1+ (Negative); Nitrate,Urine Negative (Negative); Protein,Urine Negative (Negative); Specific Gravity, Urine <= 1.005 (1.005-1.030); Urobilinogen,Urine 0.2 EU/dl (0.2)
--- NOTE | 2021-11-05 16:30 | PC.NURSE ---
[id number] TIANNA JACOB IN PHARMACY VERIFIED INVANZ DOSE FOR ABX PER ED MD REQUEST
[2021-11-05 16:43] LABS: Bacteria,Urine 3+ /lpf; WBC,Urine Occasional #/hpf (0-3)
--- NOTE | 2021-11-05 17:22 | PC.NURSE ---
HOUSE CALLED FOR BED
--- NOTE | 2021-11-05 17:39 | PC.NURSE ---
resp at bedside
--- NOTE | 2021-11-05 17:57 | PC.NURSE ---
ED MD REMINDED TO COMPLETE TISSUE PERFUSION ASSESSMENT
--- NOTE | 2021-11-05 18:32 | PC.NURSE ---
REPORT GIVEN TO Leora MCGARRY RN
[2021-11-05 18:55] LABS: Reflex Lactic Add Lactic Reflex
--- NOTE | 2021-11-05 19:42 | PC.NURSE ---
1742:Informed J Carlos Pringle RN to ask Dr. Oconnor to document a Tissure Perfusion Reassement on patient.
[2021-11-05 19:51] LABS: Lactic Acid Follow Up (RFLX 1) 1.4 mmol/L (0.7-2.1)
[2021-11-06] VITALS (19 sets, daily range): BP systolic 110–158; BP diastolic 55–85; PULSE 80–100; RESP 16–26; TEMP 36.3–37.2; O2SAT 94–98; BMI 47.9
--- NOTE | 2021-11-06 04:01 | PC.NURSE ---
Pt has been on BiPap since being on floor. O2 sat 94%. Hypothermic at beginning of shift, pt placed on bearhugger, last temp 98.3. Pt has been resting through shift with no complaints.
--- NOTE | 2021-11-06 05:27 | PC.NURSE ---
0500 Abraham wright removed at this time, rectal temp 98.8
[2021-11-06 06:04] LABS: POC Glucose,Bedside 154 (70-110)
[2021-11-06 07:27] LABS: Basophils % 0.1 % (0.1-2.0); Hematocrit 39.3 % (37.0-47.0); Hemoglobin 12.1 g/dL (12.2-16.2); Lymphocytes # 0.5 K/mm3 (0.7-4.5); Lymphocytes % 2.2 % (10-50); Mean Corpuscular HGB Conc 30.8 g/dL (31.8-35.4); Mean Corpuscular Volume 100.8 fl (81-99); Monocytes # 0.3 K/mm3 (0.1-1.0); Monocytes % 1.6 % (1.7-9.3); Neutrophils # 20.4 K/mm3 (1.8-7.8); Neutrophils % 96.2 % (37.0-80.0); Platelet Count 239 K/mm3 (142-424); Red Blood Count 3.89 M/mm3 (4.20-5.40); White Blood Count 21.2 K/mm3 (4.8-10.8)
[2021-11-06 07:29] LABS: MANUAL DIFFERENTIAL MANUAL DIFFERENTIAL (MANUAL DIFF)
[2021-11-06 07:33] LABS: Chloride 105 mmol/L (98-107); Potassium 4.4 mmoL/L (3.5-5.1); Sodium 138 mmol/L (136-145)
[2021-11-06 07:36] LABS: Anion Gap 10.4 mEq/L (5-15); Blood Urea Nitrogen 18 mg/dl (7-17); Calcium 8.8 mg/dl (8.4-10.2); Carbon Dioxide 27 mmol/L (22.0-30.0); Creatinine Clearance Estimated 42 mL/min (50-200); Estimated Glomerular Filt Rate 63 ml/min (>60); GFR (African American) 77 ML/MIN (>60); Glucose 171 mg/dl (74-100)
[2021-11-06 07:52] LABS: Lymphocytes % 2 % (10-50); Monocytes % 1 % (2-9); Neutrophils % 74 % (42-76); Total Cells Counted 100
[2021-11-06 07:54] LABS: Anisocytosis 1+; Hypochromasia 1+; Macrocytosis 1+; Platelet Estimate Normal
--- NOTE | 2021-11-06 09:18 | HMH.PHAVTE ---
[facility] Pharmacy VTE Monitoring - Patient Demographics Admission date: 11/06/21 Report Date: 11/06/21 Time: 09:18 Allergies/Adverse Reactions: Patient Allergies aspirin Allergy (Verified 09/22/21 11:10) azithromycin Allergy (Verified 09/22/21 11:10) bupropion [From Wellbutrin SR] Allergy (Verified 09/22/21 11:10) Cephalosporins Allergy (Verified 09/22/21 11:10) levofloxacin [From Levaquin] Allergy (Verified 09/22/21 11:10) erythromycin base Adverse Reaction (Mild, Verified 09/22/21 11:10) tramadol Adverse Reaction (Mild, Verified 09/22/21 11:10) Height: 1.53 m Weight: 112.179 kg Patient Problems: Current Active Problems HCAP (healthcare-associated pneumonia) (Acute) Acute respiratory failure with hypoxia and hypercapnia (Acute) Septic shock (Acute) - VTE Risk Labs: VTE Related Lab Results Hgb 12.1 g/dL (12.2-16.2) L 11/06/21 06:33 Hct 39.3 % (37.0-47.0) 11/06/21 06:33 Plt Count 239 K/mm3 (142-424) 11/06/21 06:33 BUN 18 mg/dl (7-17) H 11/06/21 06:33 Creatinine 0.90 mg/dl (0.52-1.04) 11/06/21 06:33 Estimated Creat Clear 42 mL/min (50-200) 11/06/21 06:33 Was VTE Risk Assessment Performed: Yes VTE Score: 10 VTE Risk Level: Moderate Risk Clinical Trial Participant: No - Prophylaxis VTE Prophylaxis Ordered?: Yes Types of VTE Prophylaxis: TEDS Knee High
--- NOTE | 2021-11-06 09:36 | HMH.PHAINT ---
HOME MEDICATION LIST VERIFIED USING LIST FROM PRISON
[2021-11-06 09:37] LABS: ABG Base Excess -1.4 mmol/L (-2.4-2.3); ABG Oxygen Saturation 99 % (90-100); ABG PH 7.24 mmol/L (7.35-7.45); ABG TCO2 27.9 mmhg (23-27)
[2021-11-06 09:42] LABS: Allen's Test acceptable; Oxygen 80% %; Tidal Volume 18/8
[2021-11-06 09:43] LABS: ABG PCO2 62.4 mmhg (35.0-45.0)
--- NOTE | 2021-11-06 15:59 | HMH.HP ---
*Admission Date: 11/06/21 *Chief complaint: pneumonia with respiratory failure *History of present illness: Patient is brought in by ambulance from [facility] for low oxygen saturation, lethargy. She normally is on 2 L nasal cannula oxygen but reportedly pulse ox was in the 50s on 2 L. Unable to get it higher on nasal cannula oxygen and therefore CPAP was applied. Pulse ox up into the 70s only. Patient is unable to give any history herself. Pulmonary service consulted. Pt is currently on bipap. Multiple drug allergies present; pharmacy suggested invanz. Pneumonia present at right base. [facility] History Medical History: Reports:: Anxiety, Cancer, Depression, Diabetes Mellitus Type 2, Gastroesophageal Reflux Disease(GERD), Hypertension, Migraine, Urinary Tract Infection Denies:: Diabetes Mellitus Type 1, MRSA, Seizures *Have you ever received a pneumonia vaccine?: No *Have you received a flu vaccine this season?: No Other Medical History: Reports: Anemia, Other Laterality Cases: Bilateral: Tonsillectomy Other Surgeries: Yes: Cholecystectomy, Colonoscopy, , Dilation and Curettage, Hysterectomy-Total, Sinus Surgery, Skin Cancer Excision, Tubal Ligation, Other Amputation: No Fractures: Yes - *Social History Smoking Status: Former smoker Alcohol Intake: never Substance Use Type: denies use *Occupational Status:: unemployed Housing: assisted living facility Household Members: caregiver *Travel in the last 8 weeks: None - Psychiatric History Pschychiatric History:: Reports:: Anxiety, Depression Family Hx:: Unable to obtain Review of Systems - Review of Systems Review of systems:: unable to obtain Meds Home Medications Medication Instructions Recorded Confirmed Type Acetaminophen [Tylenol 500mg 500 mg PO Q4HP PRN 04/17/20 11/06/21 History tablet] Ferrous Sulfate [Ferrous Sulfate 325 mg PO TID 04/17/20 11/05/21 History 325mg Tablet] Fludrocortisone Acetate [Florinef 0.1 mg PO DAILY 04/17/20 11/05/21 History 0.1mg tablet] Fluticasone Propionate [Flonase 2 spr NS DAILY 04/17/20 11/05/21 History 50mcg nasal spray 16gm] [place]-3 Acid Ethyl Esters [Lovaza] 2 gm PO BID 04/17/20 11/05/21 History Omeprazole [Omeprazole 20mg Tab] 20 mg PO DAILY 04/17/20 11/05/21 History Sucralfate 10 ml PO QID 04/17/20 11/05/21 History ondansetron HCL [Ondansetron 4mg 4 mg PO TIDP PRN 04/17/20 11/05/21 History tab*] Meclizine HCl 12.5 mg PO BIDP PRN 10/11/20 11/05/21 History Loratadine [Claritin 10mg 10 mg PO DAILY 10/12/20 11/05/21 History Tablet] Montelukast Sodium [Singulair 10mg 10 mg PO PM 10/12/20 11/05/21 History tablet] polyethylene glycoL 3350 [Miralax 17 gm PO DAILY 10/12/20 11/05/21 History 17gm Packet] Duloxetine HCl 60 mg PO DAILY 02/07/21 11/05/21 History Linaclotide [Linzess] 290 mcg PO 2000 02/07/21 11/05/21 History Magnesium Hydroxide [Milk of 30 ml PO DAILYP PRN 02/07/21 11/05/21 History Magnesia 30mL Udc] potassium chloride 20 mEq 20 meq PO DAILY tab 03/02/21 11/05/21 History tablet,extended release(part/cryst) Albuterol Sulfate [Albuterol 2 inh INHALATION Q6HP PRN 03/13/21 11/05/21 History Sulfate Hfa] Bethanechol Chloride [Urecholine 25 mg PO TID 03/14/21 11/05/21 History 25mg Tablet] Bisacodyl [Bisacodyl 10mg Supp] 10 mg RC DAILYP PRN 03/14/21 11/05/21 History Ipratropium/Albuterol Sulfate 3 ml IH Q4HP PRN 03/14/21 11/05/21 History [Duoneb 3mL neb] Lactulose [Lactulose 20gm/30ml 30 gm PO DAILYP PRN 03/14/21 11/05/21 History Oral Soln] Loperamide HCl [Loperamide] 2 mg PO Q6HP PRN 03/14/21 11/05/21 History Phenazopyridine HCl [Azo Urinary 190 mg PO DAILYP PRN 03/14/21 11/05/21 History Pain Relief] Terazosin HCl 10 mg PO HS 03/14/21 11/05/21 History atenolol 25 mg tablet 25 mg PO DAILY 03/24/21 11/05/21 History artifi.tears(hypromellose)(PF) 0.3 1 drp OPHTHALMIC Q4-6H PRN 04/12/21 11/05/21 History % eye drops azelastine 137 mcg (0.1 %) n
--- NOTE | 2021-11-06 18:56 | PC.NURSE ---
PT IS RESTING IN BED. TURNED AND REPOSITIONED FREQUENTLY. PT HAS TOLERATED BIPAP WELL. BIPAP REMOVED FOR PT TO TAKE MEDS AND DRINK WATER. ALERT AND ORIENTED X2. LUNG SOUNDS DIMINISHED. SWELLING NOTED TO BLE. WILL CONTINUE TO MONITOR.
[2021-11-07] VITALS (18 sets, daily range): BP systolic 156–170; BP diastolic 80–86; PULSE 70–92; RESP 20–25; TEMP 36.5–37.2; O2SAT 94–99; BMI 48.6
--- NOTE | 2021-11-07 05:16 | PC.NURSE ---
No changes since previous assessment. Pt remains on bipap - tolerating well. Pt has been NSR on tele. Voiding per mcghee cath with good urine output. IV infusing per order. Pt repositioned q2hrs. No needs or complaints voiced. Pt has rested well throughout the night. Call light in reach.
[2021-11-07 07:11] LABS: Basophils % 0.2 % (0.1-2.0); Hematocrit 35.3 % (37.0-47.0); Hemoglobin 10.9 g/dL (12.2-16.2); Lymphocytes # 0.7 K/mm3 (0.7-4.5); Lymphocytes % 7.6 % (10-50); Mean Corpuscular HGB Conc 30.9 g/dL (31.8-35.4); Mean Corpuscular Hemoglobin 30.9 pg (27.0-31.2); Mean Corpuscular Volume 99.9 fl (81-99); Mean Platelet Volume 8.7 fl (7.4-10.4); Monocytes # 0.2 K/mm3 (0.1-1.0); Monocytes % 2.3 % (1.7-9.3); Neutrophils # 7.8 K/mm3 (1.8-7.8); Neutrophils % 89.9 % (37.0-80.0); Platelet Count 242 K/mm3 (142-424); Red Blood Count 3.53 M/mm3 (4.20-5.40); Red Cell Distribution Width 13.2 % (11.5-17.5); White Blood Count 8.6 K/mm3 (4.8-10.8)
[2021-11-07 07:13] LABS: Chloride 104 mmol/L (98-107)
[2021-11-07 07:14] LABS: Potassium 3.7 mmoL/L (3.5-5.1); Sodium 137 mmol/L (136-145)
[2021-11-07 07:16] LABS: Alanine Aminotransferase 19 U/L (12-78); Alkaline Phosphatase 57 U/L (38-126); Aspartate Amino Transferase 20 U/L (14-36); Bilirubin,Total 0.4 mg/dl (0.2-1.3); Blood Urea Nitrogen 30 mg/dl (7-17); Creatinine Clearance Estimated 42 mL/min (50-200); Estimated Glomerular Filt Rate 56 ml/min (>60); GFR (African American) 68 ML/MIN (>60); MANUAL DIFFERENTIAL MANUAL DIFFERENTIAL (MANUAL DIFF)
[2021-11-07 07:17] LABS: Albumin Level 3.2 g/dl (3.5-5.0); Albumin/Globulin Ratio 1.2 (1.1-1.8); Anion Gap 7.7 mEq/L (5-15); Carbon Dioxide 29 mmol/L (22.0-30.0); Globulin 2.6 g/dL (1.3-3.2); Glucose 161 mg/dl (74-100); Total Protein,Serum 5.8 g/dl (6.3-8.2)
[2021-11-07 07:39] LABS: Anisocytosis 1+; Lymphocytes % 4 % (10-50); Macrocytosis 1+; Monocytes % 4 % (2-9); Neutrophils % 92 % (42-76); Total Cells Counted 100
[2021-11-07 07:40] LABS: Hypochromasia 1+; Platelet Estimate Normal
--- NOTE | 2021-11-07 09:43 | HMH.ACPN ---
Internal Medicine - PN: Subj *Date: 11/07/21 *Time: 09:43 Exam Vital signs and Labs for Last 24 Hours: Temp Pulse Resp BP Pulse Ox 98.8 F 92 H 22 170/86 H 99 11/07/21 08:00 11/07/21 08:00 11/07/21 08:00 11/07/21 08:00 11/07/21 08:00 Laboratory Results - last 24 hr 11/06/21 08:38: ABG pH 7.24 L*, ABG pCO2 62.4 H, ABG pO2 105.0 H, ABG HCO3 26.0, ABG Total CO2 27.9 H, ABG O2 Saturation 99, ABG Base Excess -1.4 11/07/21 06:54: WBC 8.6 D, RBC 3.53 L, Hgb 10.9 L, Hct 35.3 L, MCV 99.9 H, MCH 30.9, MCHC 30.9 L, RDW 13.2, Plt Count 242, MPV 8.7, Neut % (Auto) 89.9 H, Lymph % (Auto) 7.6 L, [place] % (Auto) 2.3, Eos % (Auto) 0.0 L, Baso % (Auto) 0.2, Neut # (Auto) 7.8, Lymph # (Auto) 0.7, [place] # (Auto) 0.2, Eos # (Auto) 0.0, Baso # (Auto) 0.0, Total Counted 100, Neutrophils % (Manual) 92 H, Lymphocytes % (Manual) 4 L, Monocytes % (Manual) 4, Platelet Estimate Normal, Hypochromasia 1+, Anisocytosis 1+, Macrocytosis 1+ 11/07/21 06:54: Sodium 137, Potassium 3.7, Chloride 104, Carbon Dioxide 29, Anion Gap 7.7, BUN 30 H D, Creatinine 1.00, Estimated Creat Clear 42, Estimated GFR 56 L, Est GFR ( Amer) 68, Glucose 161 H, Calcium 9.0, Total Bilirubin 0.4, AST 20 D, ALT 19 D, Alkaline Phosphatase 57, Total Protein 5.8 L, Albumin 3.2 L, Globulin 2.6, Albumin/Globulin Ratio 1.2 I & O for Last 24 hours: Intake & Output 11/04/21 11/05/21 11/06/2126/22 23:59 23:59 23:59 23:59 Intake Total 1956 1140 / 1140 Output Total 2640 / 2640 500 / 500 Balance -683 / -683 640 / 640 Weight 112.179 kg 112.179 kg 113.88 kg Microbiology Reports for the Last 24 Hours: Microbiology 11/05/21 15:20 Urine,Clean Catch Urine Culture - Final Escherichia coli Assessment and Plan (1) Acute respiratory failure with hypoxia and hypercapnia Status: Acute Category: Medical Code(s): J96.01 - Acute respiratory failure with hypoxia; J96.02 - Acute respiratory failure with hypercapnia (2) HCAP (healthcare-associated pneumonia) Status: Acute Category: Medical Code(s): J18.9 - Pneumonia, unspecified organism (3) Dyspnea Status: Acute Qualifiers: Dyspnea type: dyspnea on exertion Qualified Code(s): R06.00 - Dyspnea, unspecified Category: Medical Code(s): R06.00 - Dyspnea, unspecified (4) LANCE (obstructive sleep apnea) Status: Acute Category: Medical Code(s): G47.33 - Obstructive sleep apnea (adult) (pediatric) (5) Obesity Status: Acute Qualifiers: Obesity type: due to excess calories Obesity classification: adult class 3 (BMI >= 40) Serious obesity comorbidity presence: with serious comorbidity Body mass index: BMI 40.0-44.9 Qualified Code(s): E66.01 - Morbid (severe) obesity due to excess calories; Z68.41 - Body mass index [BMI] 40.0-44.9, adult Category: Medical Code(s): E66.9 - Obesity, unspecified (6) Pneumonia Status: Acute Category: Medical Code(s): J18.9 - Pneumonia, unspecified organism (7) Respiratory failure with hypercapnia Status: Acute Qualifiers: Chronicity: acute Qualified Code(s): J96.02 - Acute respiratory failure with hypercapnia Category: Medical Code(s): J96.92 - Respiratory failure, unspecified with hypercapnia (8) Right lower lobe pneumonia Status: Acute Qualifiers: Pneumonia type: due to unspecified organism Qualified Code(s): J18.9 - Pneumonia, unspecified organism Category: Medical Code(s): J18.9 - Pneumonia, unspecified organism (9) HTN (hypertension) Status: Chronic Qualifiers: Hypertension type: unspecified Qualified Code(s): I10 - Essential (primary) hypertension Category: Medical Code(s): I10 - Essential (primary) hypertension (10) Lymphedema Status: Chronic Category: Medical Code(s): I89.0 - Lymphedema, not elsewhere classified (11) Obesity (BMI 30-39.9) Status: Chronic Category: Medical Code(s): E66.9 - Obesity, unspecified (
--- NOTE | 2021-11-07 14:46 | PC.NURSE ---
report given to Patricia Damon
--- NOTE | 2021-11-07 15:23 | HMH.ACPN2 ---
Internal Medicine - PN: Subj *Date: 11/07/21 *Time: 15:25 Interval history: more alert today continues on bipap will look at another abg invanz on board [facility] growing ecoli Exam Vital signs and Labs for Last 24 Hours: Temp Pulse Resp BP Pulse Ox 97.7 F 72 20 156/81 H 98 11/07/21 12:00 11/07/21 12:00 11/07/21 12:00 11/07/21 12:00 11/07/21 12:00 Laboratory Results - last 24 hr 11/07/21 06:54: WBC 8.6 D, RBC 3.53 L, Hgb 10.9 L, Hct 35.3 L, MCV 99.9 H, MCH 30.9, MCHC 30.9 L, RDW 13.2, Plt Count 242, MPV 8.7, Neut % (Auto) 89.9 H, Lymph % (Auto) 7.6 L, [place] % (Auto) 2.3, Eos % (Auto) 0.0 L, Baso % (Auto) 0.2, Neut # (Auto) 7.8, Lymph # (Auto) 0.7, [place] # (Auto) 0.2, Eos # (Auto) 0.0, Baso # (Auto) 0.0, Total Counted 100, Neutrophils % (Manual) 92 H, Lymphocytes % (Manual) 4 L, Monocytes % (Manual) 4, Platelet Estimate Normal, Hypochromasia 1+, Anisocytosis 1+, Macrocytosis 1+ 11/07/21 06:54: Sodium 137, Potassium 3.7, Chloride 104, Carbon Dioxide 29, Anion Gap 7.7, BUN 30 H D, Creatinine 1.00, Estimated Creat Clear 42, Estimated GFR 56 L, Est GFR ( Amer) 68, Glucose 161 H, Calcium 9.0, Total Bilirubin 0.4, AST 20 D, ALT 19 D, Alkaline Phosphatase 57, Total Protein 5.8 L, Albumin 3.2 L, Globulin 2.6, Albumin/Globulin Ratio 1.2 I & O for Last 24 hours: Intake & Output 11/04/21 11/05/21 11/06/21 11/07/21 23:59 23:59 23:59 23:59 Intake Total 1956 / 1956 1380 / 1380 Output Total 2640 / 2640 500 / 500 Balance -683 / -683 880 / 880 Weight 247 lb 5 oz 247 lb 4.998 oz 251 lb 1 oz Microbiology Reports for the Last 24 Hours: Microbiology 11/05/21 14:44 Blood Blood Culture - Preliminary NO GROWTH AFTER 48 HOURS 11/05/21 15:20 Urine,Clean Catch Urine Culture - Final Escherichia coli - Constitutional obese, chronically ill appearing - *Routine HEENT Exam Head: Present: normocephalic Eye: Present: EOMI, PERRL ENT: Present: mucous membranes moist - *Routine Neck Exam Present: supple. Absent: lymphadenopathy - *Routine Respiratory Exam Absent: respiratory distress, wheezes - *Routine Cardiovascular Exam Present: RRR - *Routine Abdominal Exam Present: soft, normoactive bowel sounds. Absent: tenderness - *Routine Extremities Exam Present: edema. Absent: cyanosis, clubbing - *Routine Skin Exam Present: warm. Absent: rash - *Routine Neurological Exam Present: alert, oriented X3 Assessment and Plan (1) Acute respiratory failure with hypoxia and hypercapnia Status: Acute Category: Medical Code(s): J96.01 - Acute respiratory failure with hypoxia; J96.02 - Acute respiratory failure with hypercapnia (2) HCAP (healthcare-associated pneumonia) Status: Acute Category: Medical Code(s): J18.9 - Pneumonia, unspecified organism (3) Dyspnea Status: Acute Qualifiers: Dyspnea type: dyspnea on exertion Qualified Code(s): R06.00 - Dyspnea, unspecified Category: Medical Code(s): R06.00 - Dyspnea, unspecified (4) LANCE (obstructive sleep apnea) Status: Acute Category: Medical Code(s): G47.33 - Obstructive sleep apnea (adult) (pediatric) (5) Obesity Status: Acute Qualifiers: Obesity type: due to excess calories Obesity classification: adult class 3 (BMI >= 40) Serious obesity comorbidity presence: with serious comorbidity Body mass index: BMI 40.0-44.9 Qualified Code(s): E66.01 - Morbid (severe) obesity due to excess calories; Z68.41 - Body mass index [BMI] 40.0-44.9, adult Category: Medical Code(s): E66.9 - Obesity, unspecified (6) Pneumonia Status: Acute Category: Medical Code(s): J18.9 - Pneumonia, unspecified organism (7) Respiratory failure with hypercapnia Status: Acute Qualifiers: Chronicity: acute Qualified Code(s): J96.02 - Acute respiratory failure with hypercapnia Category: Medical Code(s): J96.92 - Respiratory failure, unspecified
[2021-11-07 15:25] LABS: ABG Base Excess 0.7 mmol/L (-2.4-2.3); ABG HCO3 26.8 mmhg (22.0-26.0); ABG Oxygen Saturation 99 % (90-100); ABG PH 7.32 mmol/L (7.35-7.45); ABG TCO2 28.5 mmhg (23-27)
[2021-11-07 15:28] LABS: Allen's Test Acceptable; Oxygen 50% %; Pressure Support 22/12; Source Left Radial; Vent Rate 24
[2021-11-07 15:44] LABS: ABG PCO2 53.6 mmhg (35.0-45.0)
--- NOTE | 2021-11-07 16:28 | PC.NURSE ---
Told RT we need a sputum on pt
--- NOTE | 2021-11-07 19:03 | PC.NURSE ---
Pt has had a uneventful day during my shift. Pt is off bipap on 4 L NC per ABG results. No change from last assessment. Will continue to monitor.
[2021-11-08] VITALS (13 sets, daily range): BP systolic 148–171; BP diastolic 68–93; PULSE 55–81; RESP 16–26; TEMP 36.8–37.4; O2SAT 90–98; BMI 49.0; BMI 48.9
[2021-11-08 05:35] LABS: Basophils # 0.1 K/mm3 (0-0.2); Basophils % 0.8 % (0.1-2.0); Eosinophils % 0.5 % (0.1-12.0); Hematocrit 34.6 % (37.0-47.0); Hemoglobin 10.8 g/dL (12.2-16.2); Lymphocytes # 0.9 K/mm3 (0.7-4.5); Lymphocytes % 11.9 % (10-50); Mean Corpuscular HGB Conc 31.3 g/dL (31.8-35.4); Mean Corpuscular Hemoglobin 31.1 pg (27.0-31.2); Mean Corpuscular Volume 99.3 fl (81-99); Mean Platelet Volume 7.6 fl (7.4-10.4); Monocytes # 0.2 K/mm3 (0.1-1.0); Monocytes % 2.2 % (1.7-9.3); Neutrophils # 6.5 K/mm3 (1.8-7.8); Neutrophils % 84.7 % (37.0-80.0); Platelet Count 251 K/mm3 (142-424); Red Blood Count 3.48 M/mm3 (4.20-5.40); Red Cell Distribution Width 13.3 % (11.5-17.5); White Blood Count 7.6 K/mm3 (4.8-10.8)
[2021-11-08 05:53] LABS: Alanine Aminotransferase 18 U/L (12-78); Albumin/Globulin Ratio 1.2 (1.1-1.8); Alkaline Phosphatase 51 U/L (38-126); Anion Gap 10.7 mEq/L (5-15); Aspartate Amino Transferase 23 U/L (14-36); Bilirubin,Total 0.2 mg/dl (0.2-1.3); Blood Urea Nitrogen 37 mg/dl (7-17); Calcium 8.8 mg/dl (8.4-10.2); Carbon Dioxide 24 mmol/L (22.0-30.0); Chloride 102 mmol/L (98-107); Creatinine Clearance Estimated 42 mL/min (50-200); Estimated Glomerular Filt Rate 73 ml/min (>60); GFR (African American) 88 ML/MIN (>60); Globulin 2.5 g/dL (1.3-3.2); Glucose 140 mg/dl (74-100); Potassium 3.7 mmoL/L (3.5-5.1); Sodium 133 mmol/L (136-145); Total Protein,Serum 5.5 g/dl (6.3-8.2)
--- NOTE | 2021-11-08 06:50 | PC.NURSE ---
No changes since previous assessment. Pt wore bipap all night. Voiding per mcghee cath. IVF infusing per order. Pt has had no complaints. Rested in intervals. Call light in reach.
--- NOTE | 2021-11-08 09:16 | DIET.NUTRFU ---
interviewed during rounds today, she is missing multiple teeth. Her dentist has been pulling 2-3 teeth at a time with goals of getting dentures in the future. She is having some difficulty chewing, RD reviewed consistencies available and she agreed to try ground meats. She is also requiring some assistance with meals, her fingers are swollen and she is having a hard time picking up silverware. Nursing and kitchen notified. She did report she was hungry.
--- NOTE | 2021-11-08 09:44 | SW/DCPLANNER ---
Addendum entered by Nadia Santacruz 11/09/21 12:07: The plan for this patient is to discharge back to [facility] today ICF level of care. Nyla cote/ Leo Contreras has stated that patient will NOT require a COVID swab prior to discharge. Updated patient information has been faxed to Nyla Bailey. Original Note: This patient currently resides at [facility]. Per Nyla Bailey patient is ICF level of care. Updated patient information has been faxed. Discharge date is unknown at this time.
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
--- NOTE | 2021-11-08 12:15 | XR_ITS ---
FINAL REPORT CLINICAL HISTORY: hcap, pt unable to stand for xray- taken portable -- SOB COMPARISON: November 05, 2021 FINDINGS: The heart size is normal. The mediastinum is normal. There is persistent barium prevascular right basilar opacity. There is new left base opacity. There are no pleural effusions. There is no pneumothorax. There is no osseous abnormality. IMPRESSION: New left base opacity could represent atelectasis or pneumonia. Partially improved right base opacity. Reviewed, Interpreted and Dictated by Maikel Santana III, MD Transcribed by Matthew Leahy Authenticated and [facility]
--- NOTE | 2021-11-08 12:16 | HMH.ACPN2 ---
Internal Medicine - PN: Subj *Date: 11/09/21 *Time: 06:17 Interval history: improved somewhat but still with 4l requirement - has uti - ecoli Exam Vital signs and Labs for Last 24 Hours: Temp Pulse Resp BP Pulse Ox 98.6 F 63 20 165/93 H 92 L 11/08/21 08:00 11/08/21 11:06 11/08/21 08:00 11/08/21 08:00 11/08/21 11:06 Laboratory Results - last 24 hr 11/07/21 15:23: Specimen Source Left radial, O2 % 50%, ABG pH 7.32 L, ABG pCO2 53.6 H, ABG pO2 118.0 H, ABG HCO3 26.8 H, ABG Total CO2 28.5 H, ABG O2 Saturation 99, ABG Base Excess 0.7, Victor Manuel Test Acceptable, Vent Rate 24 11/08/21 05:25: WBC 7.6, RBC 3.48 L, Hgb 10.8 L, Hct 34.6 L, MCV 99.3 H, MCH 31.1, MCHC 31.3 L, RDW 13.3, Plt Count 251, MPV 7.6, Neut % (Auto) 84.7 H, Lymph % (Auto) 11.9, [place] % (Auto) 2.2, Eos % (Auto) 0.5, Baso % (Auto) 0.8, Neut # (Auto) 6.5, Lymph # (Auto) 0.9, [place] # (Auto) 0.2, Eos # (Auto) 0.0, Baso # (Auto) 0.1 11/08/21 05:25: Sodium 133 L, Potassium 3.7, Chloride 102, Carbon Dioxide 24, Anion Gap 10.7, BUN 37 H, Creatinine 0.80, Estimated Creat Clear 42, Estimated GFR 73, Est GFR ( Amer) 88 D, Glucose 140 H, Calcium 8.8, Total Bilirubin 0.2, AST 23, ALT 18, Alkaline Phosphatase 51, Total Protein 5.5 L, Albumin 3.0 L, Globulin 2.5, Albumin/Globulin Ratio 1.2 I & O for Last 24 hours: Intake & Output 11/06/21 11/07/21 11/08/21 11/09/21 11:59 11:59 11:59 11:59 Intake Total 635 / 635 2462 / 2462 1979 / 1979 Output Total 720 / 720 2420 / 2420 1750 / 1750 Balance -85 / -85 42 / 42 230 / 230 Weight 247 lb 4.998 oz 251 lb 1 oz 252 lb 13.923 oz Microbiology Reports for the Last 24 Hours: Microbiology 11/07/21 16:30 Sputum - Expectorated Sputum Gram Stain - Final 11/05/21 15:48 Blood Blood Culture - Preliminary NO GROWTH AFTER 48 HOURS 11/05/21 14:44 Blood Blood Culture - Preliminary NO GROWTH AFTER 48 HOURS - Constitutional no acute distress, obese - *Routine HEENT Exam Head: Present: normocephalic Eye: Present: EOMI, PERRL ENT: Present: mucous membranes dry - *Routine Neck Exam Absent: JVD - *Routine Respiratory Exam Present: decreased breath sounds - *Routine Cardiovascular Exam Present: RRR, murmur - *Routine Abdominal Exam Present: soft - *Routine Extremities Exam Absent: calf tenderness - *Routine Skin Exam Present: intact - *Routine Neurological Exam Present: alert, CN II-XII intact - Routine Psychiatric Exam Present: cooperative Assessment and Plan (1) Acute respiratory failure with hypoxia and hypercapnia Status: Acute Category: Medical Code(s): J96.01 - Acute respiratory failure with hypoxia; J96.02 - Acute respiratory failure with hypercapnia (2) HCAP (healthcare-associated pneumonia) Status: Acute Category: Medical Code(s): J18.9 - Pneumonia, unspecified organism (3) Dyspnea Status: Acute Qualifiers: Dyspnea type: dyspnea on exertion Qualified Code(s): R06.00 - Dyspnea, unspecified Category: Medical Code(s): R06.00 - Dyspnea, unspecified (4) LANCE (obstructive sleep apnea) Status: Acute Category: Medical Code(s): G47.33 - Obstructive sleep apnea (adult) (pediatric) (5) Obesity Status: Acute Qualifiers: Obesity type: due to excess calories Obesity classification: adult class 3 (BMI >= 40) Serious obesity comorbidity presence: with serious comorbidity Body mass index: BMI 40.0-44.9 Qualified Code(s): E66.01 - Morbid (severe) obesity due to excess calories; Z68.41 - Body mass index [BMI] 40.0-44.9, adult Category: Medical Code(s): E66.9 - Obesity, unspecified (6) Pneumonia Status: Acute Category: Medical Code(s): J18.9 - Pneumonia, unspecified organism (7) Respiratory failure with hypercapnia Status: Acute Qualifiers: Chronicity: acute Qualified Code(s): J96.02 - Acute respiratory failure with hypercapnia Category: Medical Code(s):
--- NOTE | 2021-11-08 12:31 | PC.NURSE ---
Patient was eating and wanted to wait for her chest xray until she was finished.
[2021-11-08 15:03] LABS: ABG Base Excess -3.7 mmol/L (-2.4-2.3); ABG HCO3 21.1 mmhg (22.0-26.0); ABG Oxygen Saturation 96 % (90-100); ABG PCO2 35.1 mmhg (35.0-45.0); ABG PO2 77.9 mmhg (80-100); ABG TCO2 22.2 mmhg (23-27)
[2021-11-08 15:06] LABS: Allen's Test ACCEPTABLE; Oxygen 4LPM %
[2021-11-08 15:07] LABS: Source Left Radial
--- NOTE | 2021-11-08 17:52 | HMH.SLDYSPHA ---
Speech & Language Evaluation Speech/Language Dysphagia Evaluation Start: 11/08/21 15:54 Freq: ONCE Status: Active Protocol: Document 11/08/21 15:54 CHIMAIA (Rec: 11/08/21 17:52 [email or web address] [id number]) Dysphagia Assess/Goals/Plan Assessment Date of Evaluation: 11/08/21 Evaluation Type Initial Certification Assessment/Problems aspiration pneumonia per MD order. Does Patient Qualify for Service No Qualify/Failure Comment Based on the results of the bedside swallow eval, pt does not require further skilled ST services at this time. Recommendations PHYSICIAN CERTIFICATION: The specified therapy services are required, authorized, and reviewed every 30 days. Diet Recommendations Mechanical Soft Liquid Type Recommendations Normal/Thin SL Swallow Guidelines Assist w/all meals,Alt bite w/ sip thru meal,Standard Aspiration Prec.,Eat at slow rate,Reflux precautions Dysphagia Swallow Precautions/Strategies Sitting Upright (90 deg),Small Bites and Sips Place Food on Either side of Mouth Plan Pt/Guardian verbally ack understanding Yes of dx/prognosis/goals Pt/Guardian verbally ack understanding Yes of/consent to tx prog G -code Required No Education Instructions provided CSE results and diet recommendations discussed with pt, nursing, and care mangagment, all of whom express understanding. Pt/Caregiver able to recall information Able to recall/restate Reinforcement needed No Speech & Language HPI History Present Illness Description of Patient Problem Pt is a 61 y.o. female presenting to [facility] from [facility] with decreased oxygen saturation. Pt is on 2L NC at baseline and O2 sats were in the 50s. Upon admission, pt was placed on a CPAP and O2 sats increased to the 70s. Per chest x-ray, pt is presenting with a right lower-lobe pneumonia. PMH is significant for anxiety, depression, CX, DM2, GERD, HTN , migrane, UTI. Baseline diet is [facility] soft/thin. Rehab Services Assessed Speech therapy Language Primary Language [place] [employer]
[2021-11-09] VITALS (7 sets, daily range): BP systolic 177–186; BP diastolic 82–86; PULSE 61–72; RESP 20–22; TEMP 36.9; O2SAT 89–96; BMI 50.5
[2021-11-09 07:44] LABS: Chloride 103 mmol/L (98-107)
[2021-11-09 07:45] LABS: Potassium 3.2 mmoL/L (3.5-5.1); Sodium 134 mmol/L (136-145)
[2021-11-09 07:47] LABS: Basophils % 0.3 % (0.1-2.0); Eosinophils % 0.3 % (0.1-12.0); Hematocrit 34.7 % (37.0-47.0); Hemoglobin 11.1 g/dL (12.2-16.2); Lymphocytes # 0.6 K/mm3 (0.7-4.5); Lymphocytes % 14.2 % (10-50); Mean Corpuscular Hemoglobin 31.8 pg (27.0-31.2); Mean Corpuscular Volume 99.4 fl (81-99); Monocytes # 0.2 K/mm3 (0.1-1.0); Monocytes % 3.8 % (1.7-9.3); Neutrophils # 3.4 K/mm3 (1.8-7.8); Neutrophils % 81.3 % (37.0-80.0); Platelet Count 243 K/mm3 (142-424); Red Cell Distribution Width 13.2 % (11.5-17.5); White Blood Count 4.2 K/mm3 (4.8-10.8)
[2021-11-09 07:48] LABS: Anion Gap 9.2 mEq/L (5-15); Blood Urea Nitrogen 36 mg/dl (7-17); Calcium 9.1 mg/dl (8.4-10.2); Carbon Dioxide 25 mmol/L (22.0-30.0); Creatinine Clearance Estimated 42 mL/min (50-200); Estimated Glomerular Filt Rate 73 ml/min (>60); GFR (African American) 88 ML/MIN (>60); Glucose 172 mg/dl (74-100)
--- NOTE | 2021-11-09 08:34 | HMH.ACPN2 ---
Internal Medicine - PN: Subj *Date: 11/09/21 *Time: 08:34 Exam Vital signs and Labs for Last 24 Hours: Temp Pulse Resp BP Pulse Ox 98.5 F 63 20 177/86 H 91 L 11/09/21 08:00 11/09/21 08:00 11/09/21 08:00 11/09/21 08:00 11/09/21 08:00 Laboratory Results - last 24 hr 11/08/21 12:17: Specimen Source Left radial, O2 % 4lpm, ABG pH 7.40, ABG pCO2 35.1, ABG pO2 77.9 L, ABG HCO3 21.1 L, ABG Total CO2 22.2 L, ABG O2 Saturation 96, ABG Base Excess -3.7 L, Victor Manuel Test Acceptable 11/09/21 06:55: WBC 4.2 L D, RBC 3.50 L, Hgb 11.1 L, Hct 34.7 L, MCV 99.4 H, MCH 31.8 H, MCHC 32.0, RDW 13.2, Plt Count 243, MPV 8.0, Neut % (Auto) 81.3 H, Lymph % (Auto) 14.2, [place] % (Auto) 3.8, Eos % (Auto) 0.3, Baso % (Auto) 0.3, Neut # (Auto) 3.4, Lymph # (Auto) 0.6 L, [place] # (Auto) 0.2, Eos # (Auto) 0.0, Baso # (Auto) 0.0 11/09/21 06:55: Sodium 134 L, Potassium 3.2 L, Chloride 103, Carbon Dioxide 25, Anion Gap 9.2, BUN 36 H, Creatinine 0.80, Estimated Creat Clear 42, Estimated GFR 73, Est GFR ( Amer) 88, Glucose 172 H, Calcium 9.1 I & O for Last 24 hours: Intake & Output 11/06/21 11/07/21 11/08/21 11/09/21 23:59 23:59 23:59 23:59 Intake Total 1956 1740 / 1740 1860 / 1860 480 / 480 Output Total 2640 / 2640 930 / 1630 2020 / 4020 2850 / 2850 Balance -683 / -683 810 / 110 -160 / -2160 -2370 / -2370 Weight 112.179 kg 113.88 kg 114.7 kg 118.252 kg Assessment and Plan (1) Acute respiratory failure with hypoxia and hypercapnia Status: Acute Category: Medical Code(s): J96.01 - Acute respiratory failure with hypoxia; J96.02 - Acute respiratory failure with hypercapnia (2) HCAP (healthcare-associated pneumonia) Status: Acute Category: Medical Code(s): J18.9 - Pneumonia, unspecified organism (3) Dyspnea Status: Acute Qualifiers: Dyspnea type: dyspnea on exertion Qualified Code(s): R06.00 - Dyspnea, unspecified Category: Medical Code(s): R06.00 - Dyspnea, unspecified (4) LANCE (obstructive sleep apnea) Status: Acute Category: Medical Code(s): G47.33 - Obstructive sleep apnea (adult) (pediatric) (5) Obesity Status: Acute Qualifiers: Obesity type: due to excess calories Obesity classification: adult class 3 (BMI >= 40) Serious obesity comorbidity presence: with serious comorbidity Body mass index: BMI 40.0-44.9 Qualified Code(s): E66.01 - Morbid (severe) obesity due to excess calories; Z68.41 - Body mass index [BMI] 40.0-44.9, adult Category: Medical Code(s): E66.9 - Obesity, unspecified (6) Pneumonia Status: Acute Category: Medical Code(s): J18.9 - Pneumonia, unspecified organism (7) Respiratory failure with hypercapnia Status: Acute Qualifiers: Chronicity: acute Qualified Code(s): J96.02 - Acute respiratory failure with hypercapnia Category: Medical Code(s): J96.92 - Respiratory failure, unspecified with hypercapnia (8) Right lower lobe pneumonia Status: Acute Qualifiers: Pneumonia type: due to unspecified organism Qualified Code(s): J18.9 - Pneumonia, unspecified organism Category: Medical Code(s): J18.9 - Pneumonia, unspecified organism (9) HTN (hypertension) Status: Chronic Qualifiers: Hypertension type: unspecified Qualified Code(s): I10 - Essential (primary) hypertension Category: Medical Code(s): I10 - Essential (primary) hypertension (10) Lymphedema Status: Chronic Category: Medical Code(s): I89.0 - Lymphedema, not elsewhere classified (11) Obesity (BMI 30-39.9) Status: Chronic Category: Medical Code(s): E66.9 - Obesity, unspecified (12) Pickwickian syndrome Status: Chronic Category: Medical Code(s): E66.2 - Morbid (severe) obesity with alveolar hypoventilation (13) UTI (urinary tract infection) Status: Acute Category: Medical Code(s): N39.0 - Urinary tract infection, site not specified (14) E. coli UTI (urinary tract infection) Status: Acute Category: Medical Code(
--- NOTE | 2021-11-09 09:58 | HMH.DCSUM ---
General - General Admission date:: 11/05/21 Discharge date: 11/09/21 HPI HPI: Patient is brought in by ambulance from [facility] for low oxygen saturation, lethargy. She normally is on 2 L nasal cannula oxygen but reportedly pulse ox was in the 50s on 2 L. Unable to get it higher on nasal cannula oxygen and therefore CPAP was applied. Pulse ox up into the 70s only. Patient is unable to give any history herself. Pulmonary service consulted. Pt is currently on bipap. Multiple drug allergies present; pharmacy suggested invanz. Pneumonia present at right base. Hospital Course Hospital Course: Patient is brought in by ambulance from [facility] for low oxygen saturation, lethargy. She normally is on 2 L nasal cannula oxygen but reportedly pulse ox was in the 50s on 2 L. Unable to get it higher on nasal cannula oxygen and therefore CPAP was applied. Pulse ox up into the 70s only. Patient is unable to give any history herself. Initial chest x-ray showed right lower lobe pneumonia UA showed +1 leukocytes White blood cell count 15.8, lactate 2.2, blood pressure 79/54, rectal temperature 95 degrees, right lower lobe pneumonia, and UTI. Severe sepsis with organ dysfunction Acute respiratory failure with hypoxia and hypercapnia HCAP (healthcare-associated pneumonia) Right lower lobe pneumonia Severe sepsis with acute organ dysfunction On Invanz IV, methylprednisone, duo nebs, and IV fluids during stay Will be discharged on Bactrim DS twice daily x6 days HTN (hypertension) Continue atenolol Pickwickian syndrome Education provided patient Extremities/portions discussed E. coli UTI (urinary tract infection) On Invanz IV during stay Will be discharged on Bactrim DS twice daily x6 days During her stay she received Invanz IV and will be discharged on Bactrim DS 1 tablet twice daily x6 days. She is also received DuoNebs and methylprednisolone along with IV fluids. She was weaned from BiPAP to 4 L and will be discharged back to the [facility] on this. UA has resulted in E. coli blood culture x2 both negative at 48 hours PLAN: 1. We will discharge back to [facility] today 2. Bactrim DS 1 tablet twice daily x6 days Objective Vital signs: Temp Pulse Resp BP Pulse Ox 98.5 F 63 20 177/86 H 91 L 11/09/21 08:00 11/09/21 08:00 11/09/21 08:00 11/09/21 08:00 11/09/21 08:00 morbidly obese - *Routine HEENT Exam Head: Present: normocephalic Eye: Present: EOMI ENT: Present: mucous membranes moist - *Routine Neck Exam Present: trachea midline. Absent: tracheal deviation - *Routine Respiratory Exam Present: wheezes - *Routine Cardiovascular Exam Present: RRR - *Routine Abdominal Exam Present: soft, normoactive bowel sounds, obese. Absent: tenderness, firm - *Routine Extremities Exam Present: full ROM, pulses intact. Absent: cyanosis, clubbing - *Routine Skin Exam Present: intact, dry. Absent: cyanosis, erythema - *Routine Neurological Exam Present: alert, altered mental status - Routine Psychiatric Exam Present: unable to assess Results Labs on day of discharge: Labs from last 24 hours 11/09/21 11/09/21 11/08/21 06:55 06:55 12:17 WBC 4.2 L D RBC 3.50 L Hgb 11.1 L Hct 34.7 L MCV 99.4 H MCH 31.8 H MCHC 32.0 RDW 13.2 Plt Count 243 MPV 8.0 Neut % (Auto) 81.3 H Lymph % (Auto) 14.2 [place] % (Auto) 3.8 Eos % (Auto) 0.3 Baso % (Auto) 0.3 Neut # (Auto) 3.4 Lymph # (Auto) 0.6 L [place] # (Auto) 0.2 Eos # (Auto) 0.0 Baso # (Auto) 0.0 Specimen Source Left radial O2 % 4lpm ABG pH 7.40 ABG pCO2 35.1 ABG pO2 77.9 L ABG HCO3 21.1 L ABG Total CO2 22.2 L ABG O2 Saturation 96 ABG Base Excess -3.7 L Victor Manuel Test Acceptable Sodium 134 L Potassium 3.2 L Chloride 103 Carbon Dioxide 25 Anion Gap 9.2 BUN 36 H Creatin
--- NOTE | 2021-11-09 10:00 | HMH.OTEV ---
OT Inpatient Evaluation Rehab OT IP Evaluation Start: 11/09/21 09:07 Freq: ONCE Status: Complete Protocol: Document 11/09/21 09:53 SALBADOR (Rec: 11/09/21 10:00 [id number] Rehab OT IP Assessment Subjective History Pt oriented x 2 on arrival. Pt agreeable to engage in therapy evaluation. Pt admitted via ED on 11/06/21 due to PNA. Pt was living at [facility] prior to being in the hospital. Pt required assistance with dressing and bathing. Pt was independent with feeding. Pt dependent upon staff to complete all IADLs. Pt claims she was able to walk prior to hospital admission. Pt did use a walker. The following is copied from history and physical report: Patient is brought in by ambulance from [facility] for low oxygen saturation, lethargy. She normally is on 2 L nasal cannula oxygen but reportedly pulse ox was in the 50s on 2 L . Unable to get it higher on nasal cannula oxygen and therefore CPAP was applied. Pulse ox up into the 70s only. Patient is unable to give any history herself. Pulmonary service consulted. Pt is currently on bipap. Multiple drug allergies present; pharmacy suggested invanz. Pneumonia present at right base. Subjective I am tired of people talking about me. Pt completed bed mobility and went from supine to sitting at eob with min assist. Pt completed sit to stand from eob with mod assist x 2. Pt sat back down with mod assist. Min assist or bed mobility to go from sitting to supine.
--- NOTE | 2021-11-09 13:53 | HMH.PTEV ---
Physical Therapy Evaluation Rehab PT IP Evaluation Start: 11/09/21 09:06 Freq: ONCE Status: Active Protocol: Document 11/09/21 13:51 JENNA (Rec: 11/09/21 13:53 JENNA [id number]) Subjective/History History History Pt is resident of [facility] home - Pt admitted to [facility] for [place]um[place] Subjective Subjective Pt reports she does not want to go back to [facility] Rehab PT IP Eval Objective Appearance Patient Behavior Cooperative Patient Orientation Person,Place Difficulty following instructions mild Speech Pattern Clear Ambulation Patient Able to Ambulate No Balance Ability to Arise Unable Sitting Balance Steady, safe Standing Balance Steady, wide stance Dynamic Sitting Balance Ability Fair Dynamic Standing Balance Ability Poor Transfers Bed Transfer Ability Minimal x 1 (25% assist) Sit to Stand Bed Transfer Ability Moderate x 2 (50% assist) Rehab PT IP prob,goals,plan Problems Date of Evaluation: 11/09/21 PT IP Problems Transfers,Gait Rehab Potential Rehab Potential Innapropriate for Skilled Therapy Discharge Plan PT Discharge Plan Pt to dc back to [facility] G -code Required No Eval Complexity Eval Charge Codes 54635 - Moderate Complexity PHYSICIAN CERTIFICATION: I certify the specified therapy services for Johanny Molina are required, authorized, and reviewed every 30 days.
--- NOTE | 2021-11-10 15:03 | CARE MANAGER ---
Spoke with systems software manager at [facility] and she states that nurse isn't answering the phone but that the patient is fine 'as far as she knows.'
== END 2021-11-09 13:46 | DRG 871 ==
LOC: ER 15:52 → 2ND 17:52
PROVIDERS: Internal Medicine Pulmonary Disease; Nurse Practitioner Family; Admitting Provider Family Medicine; Emergency Provider Emergency Medicine; PCP Emergency Medicine; Visit Provider Family Medicine
DX: A41.9 Sepsis, unspecified organism (principal); J96.01 Acute respiratory failure with hypoxia; J18.9 Pneumonia, unspecified organism; R65.21 Severe sepsis with septic shock; J96.02 Acute respiratory failure with hypercapnia; Z68.41 Body mass index [BMI] 40.0-44.9, adult; E66.2 Morbid (severe) obesity with alveolar hypoventilation; N39.0 Urinary tract infection, site not specified; Y95 Nosocomial condition; Z87.891 Personal history of nicotine dependence; K21.9 Gastro-esophageal reflux disease without esophagitis; I10 Essential (primary) hypertension; E11.9 Type 2 diabetes mellitus without complications; G47.33 Obstructive sleep apnea (adult) (pediatric); B96.20 Unspecified Escherichia coli [E. coli] as the cause of diseases classified elsewhere; Z99.81 Dependence on supplemental oxygen
CPT/HCPCS: 36415; 51702; 71045; 80048; 80053; 81001; 82803; 82962; 83605; 83880; 84484; 85007; 85025; 87040; 87070; 87077; 87086; 87088; 87186; 87205; 92610; 93005; 94640; 94660; 94761; 97162; 97166; 99291; C9803; J1335; J2405; U0003; U0005

== ENCOUNTER → 2022-01-11 14:29 | Outpatient (CLI) | payer MEDICARE, MEDICAID, SELFPAY ==
--- NOTE | 2022-01-11 14:36 | CT_ITS ---
FINAL REPORT TECHNIQUE: Axial CT images were performed from the lung apices through the upper abdomen. Coronal reformats were submitted. This study was performed with techniques to keep radiation doses as low as reasonably achievable (ALARA). Individualized dose reduction techniques using automated exposure control or adjustment of mA and/or kV according to the patient's size were employed. CLINICAL HISTORY: Nodule F/U COMPARISON: 04/01/2021 FINDINGS: There is no axillary adenopathy. There are multiple borderline sized mediastinal nodes. Heart size is normal. There is no pericardial or pleural effusion. There is mild scarring. There are 2 lingular nodules measuring 8 and 4 mm, stable. There is a small calcified granuloma in the lateral left upper lobe. No new mass or nodule is identified. There is a small hiatal hernia. IMPRESSION: Stable lingular nodules. Reviewed, Interpreted and Dictated by Maikel Santana III, MD Transcribed by Nancy Barnes Authenticated and [facility] [place] [place]
== END ==
PROVIDERS: PCP Emergency Medicine; Visit Provider Internal Medicine Pulmonary Disease
DX: R91.8 Other nonspecific abnormal finding of lung field (principal)
CPT/HCPCS: 71250

== ENCOUNTER 2022-04-27 19:15 | Observation (INO) | payer MEDICARE, MEDICAID, SELFPAY ==
--- NOTE | 2022-04-27 19:07 | ECG_ITS ---
APPROVED REPORT Exam: Resting ECG HR:65 bpm ECG Measurements Heart Rate 65 AXES MA 189 P 50 QRSd 109 QRS -1 QT 418 T 35 QTc 429 Conclusion SINUS RHYTHM NORMAL ECG UNCONFIRMED REPORT Electronically signed by : Francis Magdaleno MD 04/29/2022 16:53:38
[2022-04-27 19:15] VITALS: BP 128/69; PULSE 67; RESP 18; TEMP 36.6; O2SAT 97; BMI 36.3
--- NOTE | 2022-04-27 20:01 | PC.NURSE ---
Lab unable to obtain blood from pt via straight stick
--- NOTE | 2022-04-27 20:29 | XR_ITS ---
PROCEDURE INFORMATION: Exam: XR Chest Exam date and time: 04/27/2022 8:45 PM Age: 62 years old Clinical indication: Other: Epigastric pain; Additional info: Upper gastric pain TECHNIQUE: Imaging protocol: Radiologic exam of the chest. Views: 1 view. COMPARISON: CT CHEST WO CON 01/11/2022 2:43 PM FINDINGS: Lungs: Stigmata of old granulomatous disease. There is the appearance of a right mid lung spiculated lesion. Pleural spaces: Unremarkable. No pleural effusion. No pneumothorax. Heart/Mediastinum: Unremarkable. No cardiomegaly. Bones/joints: Unremarkable. IMPRESSION: There is the appearance of a right mid lung spiculated lesion. This could be due to confluence of shadows, however, if the patient is at high risk for pulmonary malignancy, consider CT to exclude a malignant nodule.
--- NOTE | 2022-04-27 20:31 | CT_ITS ---
PROCEDURE INFORMATION: Exam: CT Abdomen And Pelvis With Contrast Exam date and time: 04/27/2022 10:25 PM Age: 62 years old Clinical indication: Abdominal pain; Localized; Upper; Additional info: Upper gastric pain TECHNIQUE: Imaging protocol: Computed tomography of the abdomen and pelvis with contrast. Radiation optimization: All CT scans at this facility use at least one of these dose optimization techniques: automated exposure control; mA and/or kV adjustment per patient size (includes targeted exams where dose is matched to clinical indication); or iterative reconstruction. Contrast material: ISOVUE; Contrast volume: 75 ml; Contrast route: IV; COMPARISON: CT ABDOMEN PELVIS W CON 09/07/2021 2:20 AM FINDINGS: Tubes, catheters and devices: Spinal device is noted. Diaphragm: Small hiatal hernia. Liver: Normal. No mass. Gallbladder and bile ducts: Gallbladder is absent. Pancreas: Normal. No ductal dilation. Spleen: Normal. No splenomegaly. Adrenal glands: Normal. No mass. Kidneys and ureters: Low attenuation renal lesions measuring up to 9 mm in diameter are incompletely characterized, but are likely cysts. No followup imaging is warranted. Stomach and bowel: Unremarkable. No obstruction. No mucosal thickening. Appendix: Unremarkable appendix. Intraperitoneal space: Unremarkable. No free air. No significant fluid collection. Vasculature: Unremarkable. No abdominal aortic aneurysm. Lymph nodes: Unremarkable. No enlarged lymph nodes. Urinary bladder: Unremarkable as visualized. Reproductive: Status post hysterectomy. Bones/joints: Unremarkable. No acute fracture. Soft tissues: Tiny fat containing umbilical hernia. Soft tissue edema around the hips. Other findings: Please see separate report for CT chest. IMPRESSION: Acute pancreatitis. No peripancreatic fluid collection. Patent portal and splenic veins. COMMENTS: Consistent with the [employer]'s Incidental Findings Committee white paper (J Am Rubi Radiol 2018): Any incidental renal lesion less than 1 cm or classified as too small to characterize, or any incidental cystic renal lesion characterized as simple-appearing, is likely benign. No follow-up imaging is recommended for these lesions per consensus recommendations based on imaging criteria.
--- NOTE | 2022-04-27 20:36 | PC.NURSE ---
RAD at for CXR
--- NOTE | 2022-04-27 20:53 | HMH.EDCP ---
Discharge Plan Disposition Patient Disposition: Admitted As Inpatient Chief Complaint: Chest Pain Clinical Impressions Clinical Impression: Acute pancreatitis Discharge ED Provider: Casimiro Barraza Chest Pain HPI General Chief Complaint: Chest Pain Stated Complaint: chest pain Time Seen by Provider: 04/27/22 20:53 Mode of Arrival: EMS Source of Information: Patient and Medical Record Limitations: No Limitations Description of Symptoms (Recalled from ER Triage Doc. by RN): pt states that chest pain for possibly 7 days while she was in another hospital she stated the pain is in the epigastric area and that goes down to her belly. they pt stated she just got out of the [facility] and had had the pain the entire time History of Present Illness MD complaint: chest pain Onset (ago): hour(s) Duration: intermittent Activity at onset: during rest Pain location: epigastric Severity: moderate Quality: sharp Pain radiation: abdomen Associated symptoms: nausea Risk Factors for CAD: Hypertension, Hypercholesterolemia, Family Hx of CAD and Diabetes Treatments prior to or on arrival for Cardiac Chest Pain: none BHAVNA Score for Non-Stemi Age of Patient: 60-69 years old Heart Rate: 50-69 bpm Systolic Blood Pressure: 120-139 mmhg Serum Creatinine: 0.40-0.79 mg/dl CHF [place] Class: I-No CHF Other Risk Factors: None Non-Stemi Risk Score: 99 Related Data Prior Cardiac Testing/Procedures: Echocardiogram On Oral Contraceptives: No Home Medications Medication Instructions Recorded Confirmed acetaminophen 500 mg tablet 500 mg PO Q4HP PRN Pain 04/17/20 04/27/22 ferrous sulfate 325 mg (65 mg 325 mg PO TID Supplement 04/17/20 04/27/22 iron) tablet fludrocortisone 0.1 mg tablet 0.1 mg PO DAILY adrenal dz 04/17/20 04/27/22 fluticasone propionate 50 2 spr intranasal DAILY Allergy 04/17/20 04/27/22 mcg/actuation nasal symptoms spray,suspension omega-3 acid ethyl esters 1 gram 2 gm PO BID High cholesterol 04/17/20 04/27/22 capsule omeprazole 20 mg tablet,delayed 20 mg PO DAILY acid reflux 04/17/20 04/27/22 release ondansetron HCl 4 mg tablet 4 mg PO TIDP PRN Nausea 04/17/20 04/27/22 sucralfate 100 mg/mL oral 10 ml PO QID stomach ulcers 04/17/20 04/27/22 suspension meclizine 12.5 mg tablet 12.5 mg PO BIDP PRN Dizziness 10/11/20 04/27/22 loratadine 10 mg tablet 10 mg PO DAILY Allergy symptoms 10/12/20 04/27/22 montelukast 10 mg tablet 10 mg PO PM Allergy symptoms 10/12/20 04/27/22 polyethylene glycol 3350 17 gram 17 gm PO DAILY CONSTIPATION 10/12/20 04/27/22 oral powder packet magnesium hydroxide 400 mg/5 mL 30 ml PO DAILYP PRN BOWELS 02/07/21 04/27/22 oral suspension potassium chloride 20 mEq 20 meq PO DAILY Diet supplement 03/02/21 04/27/22 tablet,extended release(part/cryst) albuterol sulfate 90 mcg/actuation 2 inh inhalation Q6HP PRN 03/13/21 04/27/22 aerosol inhaler shortness of breath or wheezing bethanechol chloride 25 mg tablet 25 mg PO TID bladder control 03/14/21 04/27/22 bisacodyl 10 mg rectal suppository 10 mg DE DAILYP PRN Constipation 03/14/21 04/27/22 ipratropium 0.5 mg-albuterol 3 mg 3 ml inhalation Q4HP PRN Wheezing 03/14/21 04/27/22 (2.5 mg base)/3 mL nebulization soln lactulose 20 gram/30 mL oral 30 gm PO DAILYP PRN Constipation 03/14/21 04/27/22 solution loperamide 2 mg tablet 2 mg PO Q6HP PRN Diarrhea 03/14/21 04/27/22 phenazopyridine 95 mg tablet 190 mg PO DAILYP PRN BLADDER PAIN 03/14/21 04/27/22 terazosin 10 mg capsule 10 mg PO HS urinary retenetion 03/14/21 04/27/22 atenolol 25 mg tablet 15 mg PO DAILY High blood pressure 03/24/21 04/27/22 artifi.tears(hypromellose)(PF) 0.3 1 drp OPHTHALMIC Q4-6H PRN . 04/12/21 04/27/22 % eye drops azelastine 137 mcg (0.1 %) nasal 1 spray intranasal BID Allergy 04/12/21 04/27/22 spray aerosol symptoms quetiapine 300 mg tablet,extended 200 mg PO HS sleep 09/22/21 04/27/22 release 24 hr budesonide-formoterol HFA 160 1 inh inhalation DAILY Breathing 0
[2022-04-27 21:24] LABS: Basophils # 0.1 K/mm3 (0-0.2); Basophils % 0.8 % (0.1-2.0); Eosinophils # 0.2 K/mm3 (0.0-0.4); Eosinophils % 2.4 % (0.1-12.0); Hematocrit 39.4 % (37.0-47.0); Hemoglobin 12.8 g/dL (12.2-16.2); Lymphocytes # 1.4 K/mm3 (0.7-4.5); Lymphocytes % 16.4 % (10-50); Mean Corpuscular HGB Conc 32.5 g/dL (31.8-35.4); Mean Corpuscular Hemoglobin 30.7 pg (27.0-31.2); Mean Corpuscular Volume 94.5 fl (81-99); Mean Platelet Volume 7.7 fl (7.4-10.4); Monocytes # 0.5 K/mm3 (0.1-1.0); Monocytes % 5.5 % (1.7-9.3); Neutrophils # 6.5 K/mm3 (1.8-7.8); Neutrophils % 74.8 % (37.0-80.0); Platelet Count 313 K/mm3 (142-424); Red Blood Count 4.17 M/mm3 (4.20-5.40); White Blood Count 8.6 K/mm3 (4.8-10.8)
[2022-04-27 21:53] LABS: Amylase 841 U/L (30-110); Anion Gap 11.1 mEq/L (5-15); Blood Urea Nitrogen 19 mg/dl (7-17); Calcium 10.3 mg/dl (8.4-10.2); Carbon Dioxide 32 mmol/L (22.0-30.0); Chloride 99 mmol/L (98-107); Creatinine Clearance Estimated 87 mL/min (50-200); Estimated Glomerular Filt Rate 85 ml/min (>60); GFR (African American) 102 ML/MIN (>60); Glucose 93 mg/dl (74-100); Potassium 5.1 mmoL/L (3.5-5.1); Sodium 137 mmol/L (136-145)
--- NOTE | 2022-04-27 21:58 | CT_ITS ---
PROCEDURE INFORMATION: Exam: CT Chest Without Contrast; Diagnostic Exam date and time: 04/27/2022 10:13 PM Age: 62 years old Clinical indication: Abnormal findings; Abnormal radiologic exam of lung or chest; Additional info: Abnormal chest xray TECHNIQUE: Imaging protocol: Diagnostic computed tomography of the chest without contrast. Radiation optimization: All CT scans at this facility use at least one of these dose optimization techniques: automated exposure control; mA and/or kV adjustment per patient size (includes targeted exams where dose is matched to clinical indication); or iterative reconstruction. COMPARISON: CT CHEST WO CON 01/11/2022 2:43 PM FINDINGS: Lungs: Mild scarring and atelectasis in the lower lungs. Unchanged 7 mm lingula nodule. The appearance of spiculated right lung nodule on chest radiograph correlates with a right lung scar. Pleural spaces: Unremarkable. No pneumothorax. No pleural effusion. Heart: See Diaphragm finding. Coronary arteries: No coronary arterial calcifications. Lymph nodes: Unremarkable. No enlarged lymph nodes. Vasculature: Unremarkable. No aortic aneurysm. Diaphragm: Small hiatal hernia. Borderline cardiomegaly. Gallbladder and bile ducts: Gallbladder is absent. Pancreas: Peripancreatic edema and retroperitoneal free fluid. Kidneys and ureters: Low attenuation renal lesions measuring up to 10 mm in diameter are incompletely characterized, but are likely cysts. No followup imaging is warranted. Bones/joints: Unremarkable. No acute fracture. Soft tissues: Unremarkable. Other findings: Stigmata of old granulomatous disease. IMPRESSION: 1. Acute pancreatitis. No peripancreatic fluid collection. 2. Unchanged 7 mm lingula nodule. This is unchanged since 11/27/2020. 3. The appearance of spiculated right lung nodule on chest radiograph correlates with a right lung scar. There is no new suspicious pulmonary nodule or mass. COMMENTS: Consistent with the [employer]'s Incidental Findings Committee white paper (J Am Rubi Radiol 2018): Any incidental renal lesion less than 1 cm or classified as too small to characterize, or any incidental cystic renal lesion characterized as simple-appearing, is likely benign. No follow-up imaging is recommended for these lesions per consensus recommendations based on imaging criteria.
--- NOTE | 2022-04-27 22:04 | PC.NURSE ---
Pt complains of nausea. RN notified.
[2022-04-27 22:08] LABS: Troponin I < 0.01 ng/ml (0.00-0.034)
--- NOTE | 2022-04-27 22:09 | PC.NURSE ---
Pt gone to RAD for CT
[2022-04-27 22:17] LABS: Lipase 10502 U/L (23-300)
--- NOTE | 2022-04-27 22:30 | PC.NURSE ---
Pt back from RAD
--- NOTE | 2022-04-27 23:03 | PC.NURSE ---
Patient admitted to 215 dx of acute pancreatitis, to service of Dr. Mckay.
[2022-04-27 23:09] LABS: Coronavirus 19, PCR Not Detected (NotDetected); Influenza A, PCR Not Detected (NotDetected); Influenza B, PCR Not Detected (NotDetected)
[2022-04-27 23:14] LABS: Chol/HDL Ratio 6.6 (1-3.5); Cholesterol 191 mg/dl (140-200); HDL Cholesterol 29 mg/dl (40-60); Triglycerides 276 mg/dl (30-150); VLDL Cholesterol 55 mg/dL (0-40)
--- NOTE | 2022-04-27 23:23 | EXP.HP ---
History of Present Illness *Admission Date: 04/27/22 *Reason for visit:: Abdominal Pain/Chest Pain *History of present illness: Ms. Molina is a 62-year-old female who is a resident of a long-term care facility. She has a past medical history that is positive for Anxiety/Depression, COPD, Seizure Disorder, HTN and Iron Deficiency Anemia. She presents from the local [place] due to Abdominal and chest pain that she reports has been ongoing for several days. She was seen on admission in the ER. The information for the history and physical was obtained from the patient's chart and the patient at bedside. She reports that she was treated and released recently at a [facility] due to her Anxiety. She reports that she was having the pain at the facility. She reports that she was released to the [place] and when she got there she informed the facility of the pain and she was sent to the ER for evaluation. In the ER, the patient underwent EKG and Troponin testing that were found to be within normal limits. CT of the chest and abdomen and pelvis showed findings consistent with Acute Pancreatitis with no peripancreatic fluid collection. The patient had a Lipase that was elevated at 10,502 and Amylase that was elevated at 841. She was also noted to have Lung nodules that were noted on prior exam studies. The patient will be admitted with initial impression: Acute Pancreatitis. She will be made NPO, given IV Fluids and Analgesics. The plan of care was discussed with the patient on admission. She verbalized understanding and agreement with the plan of care. [facility] Disclaimer: The information contained in this section may have been updated after the patient was seen, as this information can be updated by other users. Medical History Anemia Anxiety Cancer CHF (congestive heart failure) Depression Diabetes type 2, controlled Dyspnea Dyspnea on exertion GERD (gastroesophageal reflux disease) History of MRSA infection of lungs HTN (hypertension) Hx of bipolar disorder Hx: UTI (urinary tract infection) Migraine Mild persistent asthma Multiple pulmonary nodules Personal history of sarcoidosis Sarcoidosis Wheezing Surgical History History of section History of colonoscopy History of dilation and curettage History of hysterectomy History of sinus surgery History of tonsillectomy Hx of cholecystectomy Status post surgical removal of malignant neoplasm of skin Family History Other CHF (congestive heart failure) Social History Smoking Status: Unknown if ever smoked alcohol intake: never substance use type: denies use current occupational status: unemployed Travel in the last 8 weeks: None household members: caregiver housing: assisted living facility caffeine: No Review of Systems Review of Systems Review of systems:: pertinent systems reviewed and negative unless documented below Constitutional Constitutional: Reports system reviewed and no additional complaints, except as documented Eyes Eyes: Reports system reviewed and no additional complaints, except as documented ENT Ears, Nose, Mouth, and Throat: Reports system reviewed and no additional complaints, except as documented *Cardiovascular Cardiovascular: Reports chest pain *Respiratory Respiratory: Reports system reviewed and no additional complaints, except as documented *Gastrointestinal Gastrointestinal: Reports abdominal pain *Genitourinary Genitourinary: Reports system reviewed and no additional complaints, except as documented *Musculoskeletal Musculoskeletal: Reports system reviewed and no additional complaints, except as documented Integumentary/Breasts Skin/Breast: Reports system reviewed and no additional complaints, except as doc
[2022-04-27 23:25] LABS: Direct LDL Cholesterol 86.54 mg/dL (100-129)
--- NOTE | 2022-04-27 23:57 | PC.NURSE ---
reportcalled to duran
[2022-04-28 00:19] VITALS: BP 135/75; PULSE 64; RESP 22; TEMP 37.2; O2SAT 91
[2022-04-28 00:20] VITALS: BP 148/92; PULSE 64; RESP 20; TEMP 36.4; O2SAT 92; BMI 39.9
--- NOTE | 2022-04-28 03:02 | PC.NURSE ---
Pt is a 62 year old female admitted this shift with Pancreatitis. Pt living at [facility], reports she just got out of [facility]. Pt has been A/O x 4, speech is slow, thought blocking noted. Pt lungs sound were clear, resp even and non labored. Pt has Lymphedema in Bilat Lower ext. Pt assist times 2 when using bedside toilet and transferring to bed. Pt reports she has a pain pump in left side of back. Pt had Morphine for pain this shift. Po is currently NPO, IV in Right forearm is patent. Pt educated on Plan of care and medications. Encourgaed to report any pain to nurse. Bed locked in low position, side rails up x 2, call light in reach.
[2022-04-28 04:00] VITALS: BP 129/57; PULSE 67; RESP 18; TEMP 36.7; O2SAT 96
[2022-04-28 05:00] VITALS: BMI 41.1
[2022-04-28 08:00] VITALS: BP 110/63; PULSE 62; RESP 15; TEMP 36.4
[2022-04-28 09:22] LABS: Chloride 100 mmol/L (98-107); Potassium 4.1 mmoL/L (3.5-5.1); Sodium 138 mmol/L (136-145)
[2022-04-28 09:24] LABS: Blood Urea Nitrogen 13 mg/dl (7-17); Creatinine Clearance Estimated 50 mL/min (50-200); Estimated Glomerular Filt Rate 101 ml/min (>60); GFR (African American) 122 ML/MIN (>60)
[2022-04-28 09:25] LABS: Alanine Aminotransferase 29 U/L (12-78); Albumin Level 3.7 g/dl (3.5-5.0); Albumin/Globulin Ratio 1.7 (1.1-1.8); Alkaline Phosphatase 89 U/L (38-126); Anion Gap 10.1 mEq/L (5-15); Aspartate Amino Transferase 26 U/L (14-36); Calcium 9.8 mg/dl (8.4-10.2); Carbon Dioxide 32 mmol/L (22.0-30.0); Globulin 2.2 g/dL (1.3-3.2); Glucose 66 mg/dl (74-100); Total Protein,Serum 5.9 g/dl (6.3-8.2)
--- NOTE | 2022-04-28 09:37 | P.CONPHA_ITS ---
Pharmacy Intervention Comments: Medication reconciliation completed via MAR from [facility]. -Luda Butts, PharmD Candidate 2022
--- NOTE | 2022-04-28 09:37 | HMH.PHAINT1 ---
Pharmacy Intervention Comments: Medication reconciliation completed via MAR from [facility]. -Luda Butts, PharmD Candidate 2022
--- NOTE | 2022-04-28 09:38 | HMH.PTEV ---
Physical Therapy Evaluation Rehab PT IP Evaluation Start: 04/28/22 08:38 Freq: ONCE Status: Active Protocol: Document 04/28/22 09:35 CHELSEA (Rec: 04/28/22 09:38 PHODMITRI [id number]) Subjective/History History History 62 yowf adm to [facility] with pancreatitis. She resides in a nsg home at baseline. She reports she requires assistance to transfer from bed to w/c at baseline and uses w/c for all mobility. Subjective Subjective Pt reports abdominal discomfort this am, otherwise agrees to get OOB. Rehab PT IP Eval Objective Appearance Patient Behavior Appropriate Patient Orientation Person,Place,Time Difficulty following instructions none Speech Pattern Clear Ambulation Patient Able to Ambulate No Balance Ability to Arise Able, uses arms to help Sitting Balance Steady, safe Standing Balance Steady, wide stance Dynamic Sitting Balance Ability Good Dynamic Standing Balance Ability Fair Transfers Bed Transfer Ability Minimal x 1 (25% assist) Chair Transfer Ability Moderate x 1 (50% assist) Sit to Stand Bed Transfer Ability Moderate x 1 (50% assist) Sit to Stand Chair Transfer Ability Moderate x 1 (50% assist) Rehab PT IP prob,goals,plan Problems Date of Evaluation: 04/28/22 Discharge Plan PT Discharge Plan Pt presents at baseline for all mobility this am and tolerates transfer to bedisde chair well without difficulty. She is most appropriate to return to [facility] once medically stable. G -code Required No Eval Complexity Eval Charge Codes 83838 - Moderate Complexity PHYSICIAN CERTIFICATION: I certify the specified therapy services for Johanny Molina are required, authorized, and reviewed every 30 days.
--- NOTE | 2022-04-28 09:52 | HMH.OTEV ---
OT Inpatient Evaluation Rehab OT IP Evaluation Start: 04/28/22 08:38 Freq: ONCE Status: Active Protocol: Document 04/28/22 09:42 SABINA (Rec: 04/28/22 09:51 SABINA [id number]) Rehab OT IP Assessment Subjective History Ms. Molina is a 62-year-old female who is a resident of a long-term care facility. She has a past medical history that is positive for Anxiety/ Depression, COPD, Seizure Disorder, HTN and Iron Deficiency Anemia. She presents from the local [place] due to Abdominal and chest pain that she reports has been ongoing for several days. She was seen on admission in the ER. The information for the history and physical was obtained from the patient's chart and the patient at bedside. She reports that she was treated and released recently at a [facility] due to her Anxiety. She reports that she was having the pain at the facility. She reports that she was released to the [place] and when she got there she informed the facility of the pain and she was sent to the ER for evaluation. In the ER, the patient underwent EKG and Troponin testing that were found to be within normal limits. CT of the chest and abdomen and pelvis showed findings consistent with Acute Pancreatitis with no peripancreatic fluid collection. The patient had a Lipase that was elevated at 10,502 and Amylase that was elevated at 841. She was also noted to have Lung nodules that were noted on prior exam studies. The patient will be admitted with initial impressi
[2022-04-28 09:53] LABS: Bilirubin,Total < 0.1 mg/dl (0.2-1.3)
--- NOTE | 2022-04-28 09:54 | HMH.OTEV ---
OT Inpatient Evaluation Rehab OT IP Evaluation Start: 04/28/22 08:38 Freq: ONCE Status: Complete Protocol: Document 04/28/22 09:42 SAIBNA (Rec: 04/28/22 09:51 SABINA [id number]) Rehab OT IP Assessment Subjective History Ms. Molina is a 62-year-old female who is a resident of a long-term care facility. She has a past medical history that is positive for Anxiety/ Depression, COPD, Seizure Disorder, HTN and Iron Deficiency Anemia. She presents from the local [place] due to Abdominal and chest pain that she reports has been ongoing for several days. She was seen on admission in the ER. The information for the history and physical was obtained from the patient's chart and the patient at bedside. She reports that she was treated and released recently at a [facility] due to her Anxiety. She reports that she was having the pain at the facility. She reports that she was released to the [place] and when she got there she informed the facility of the pain and she was sent to the ER for evaluation. In the ER, the patient underwent EKG and Troponin testing that were found to be within normal limits. CT of the chest and abdomen and pelvis showed findings consistent with Acute Pancreatitis with no peripancreatic fluid collection. The patient had a Lipase that was elevated at 10,502 and Amylase that was elevated at 841. She was also noted to have Lung nodules that were noted on prior exam studies. The patient will be admitted with initial impressi
[2022-04-28 10:13] LABS: Lactate Dehydrogenase 156 U/L (313-618)
[2022-04-28 10:36] VITALS: BMI 41.0
--- NOTE | 2022-04-28 13:09 | PC.NURSE ---
DISCUSSED VTE PROPHYLAXIS WITH DR DAVILA HE SAID HE WOULD LOOK INTO IT
--- NOTE | 2022-04-28 13:34 | DIET.NUTRFU ---
due to lack of teeth patient will need MSOFT ground diet when advanced
--- NOTE | 2022-04-28 13:43 | SW/DCPLANNER ---
Addendum entered by Nadia Santacruz 04/29/22 12:49: The plan for this patient is to return to [facility] level of care. Nyla cote/ Leo stated that no further COVID testing is needed at this time. Original Note: This patient currently resides at [facility] level of care. I will continue to follow up with Nyla at [facility] until patient is medically stable for discharge.
[2022-04-28 16:00] VITALS: BP 112/82; PULSE 61; RESP 20; TEMP 36.6; O2SAT 96
[2022-04-28 16:13] LABS: Microscopic, Urine URINE MICROSCOPIC (MICROSCOPIC)
[2022-04-28 16:15] LABS: Appearance,Urine CLEAR (Clear); Bilirubin,Urine Negative (Negative); Blood, Urine Negative (Negative); Color,Urine YELLOW (Yellow); Glucose,Urine (UA) Negative (Negative); Ketones,Urine Negative (Negative); Leukocyte Esterase,Urine Negative (Negative); Nitrate,Urine Negative (Negative); Protein,Urine Negative (Negative); Urobilinogen,Urine 0.2 EU/dl (0.2)
[2022-04-28 16:48] LABS: Squamous Epithelial Cell,Urine Occasional #/hpf (0-5)
--- NOTE | 2022-04-28 18:25 | EXP.ACUTE.PN ---
Subjective *Date: 04/28/22 *Time: 19:28 Interval history: Did well overnight. Requesting food this morning. Having trouble with urinary retention, placed Ramos today. Tolerating clear liquid diet with minimal discomfort in her abdomen. No nausea or vomiting. No shortness of breath or chest pain Medical Exam Vital signs and Labs for Last 24 Hours: Vital Signs Temp Pulse Pulse Resp BP BP Pulse Ox 04/28/22 16:00 97.8 F 61 20 112/82 96 04/28/22 08:00 97.5 F L 62 15 110/63 04/28/22 04:00 98.0 F 67 18 129/57 L 96 04/28/22 00:20 97.6 F 64 20 148/92 H 92 L 04/28/22 00:19 98.9 F 64 22 135/75 04/27/22 19:15 97.8 F 67 18 128/69 97 Intake and Output 04/28/22 04/28/22 04/28/22 07:59 15:59 23:59 Intake Total 720 / 1140 420 / 1140 Output Total 5000 / 5750 750 / 5750 Balance -5000 / -4610 -30 / -4610 420 / -4610 Intake: Intake, Oral Amount 720 / 1140 420 / 1140 Output: Output, Urine Amount 5000 / 5000 Output, Urine Amount (Catheter) 750 / 750 Ramos 750 / 750 Other: Weight 109.316 kg 109 kg Patient Weight 04/28/22 23:59 Weight 109 kg Laboratory Results - last 24 hr 04/27/22 15:55: Urine Color Yellow, Urine Appearance Clear, Urine pH 7.0, Ur Specific [place] 1.010, Urine Protein Negative, Urine Glucose (UA) Negative, Urine Ketones Negative, Urine Blood Negative, Urine Nitrate Negative, Urine Bilirubin Negative, Urine Urobilinogen 0.2, Ur Leukocyte Esterase Negative, Urine RBC None, Urine WBC None, Ur Squamous Epith Cells Occasional, Urine Bacteria None 04/27/22 21:08: WBC 8.6, RBC 4.17 L, Hgb 12.8, Hct 39.4, MCV 94.5, MCH 30.7, MCHC 32.5, RDW 13.0, Plt Count 313, MPV 7.7, Neut % (Auto) 74.8, Lymph % (Auto) 16.4, [place] % (Auto) 5.5, Eos % (Auto) 2.4, Baso % (Auto) 0.8, Neut # (Auto) 6.5, Lymph # (Auto) 1.4, [place] # (Auto) 0.5, Eos # (Auto) 0.2, Baso # (Auto) 0.1 04/27/22 21:08: Sodium 137, Potassium 5.1, Chloride 99, Carbon Dioxide 32 H, Anion Gap 11.1, BUN 19 H, Creatinine 0.70, Estimated Creat Clear 87, Estimated GFR 85, Est GFR ( Amer) 102, Glucose 93, Calcium 10.3 H, Troponin I < 0.01, Amylase 841 H*, Lipase 14862 H 04/27/22 21:08: Triglycerides 276 H, Cholesterol 191, LDL Cholesterol Direct 86.54 L, VLDL Cholesterol 55 H, HDL Cholesterol 29 L, Cholesterol/HDL Ratio 6.6 H 04/27/22 23:03: SARS-CoV-2 (PCR) Not detected, Influenza A Untype (PCR) Not detected, Influenza Type B (PCR) Not detected 04/28/22 08:50: Sodium 138, Potassium 4.1, Chloride 100, Carbon Dioxide 32 H, Anion Gap 10.1, BUN 13 D, Creatinine 0.60, Estimated Creat Clear 50, Estimated GFR 101, Est GFR ( Amer) 122, Glucose 66 L D, Calcium 9.8, Total Bilirubin < 0.1 L, AST 26, ALT 29, Alkaline Phosphatase 89, Lactate Dehydrogenase 156 L, Total Protein 5.9 L, Albumin 3.7, Globulin 2.2, Albumin/Globulin Ratio 1.7 I & O for Labs for Last 24 Hours: Intake & Output 04/25/22 04/26/22 04/27/22 04/28/22 23:59 23:59 23:59 23:59 Intake Total 1140 / 1140 Output Total 5750 / 5750 Balance -4610 / -4610 Weight 96.162 kg 109 kg Constitutional: Present no acute distress, morbidly obese, chronically ill appearing and cooperative Head: Present atraumatic and normocephalic ENT: Present normal exam Neck: Present normal inspection Respiratory: Present normal respiratory effort; Absent accessory muscle use, rhonchi, wheezes or crackles Cardiac: Present Reg Rate and Rhythm GI: Present soft, tenderness (LUQ) and normal bowel sounds; Absent distention Extremities: Present normal inspection, full ROM and edema (chronic 3+ in BLE to thigh) Skin: Present intact; Absent erythema Neuro: Present Grossly Intact, alert, awake and moves all extremities Assessment and Plan *Assessment and plan (1) Acute pancreatitis: Status: Acute Category: Medical Code(s): K85.90 - Acute pancreatitis without necrosis or infection, unspecified (2) COPD (chronic obstructive pulmonary disease):
[2022-04-28 20:00] VITALS: BP 126/83; PULSE 69; RESP 18; TEMP 36.4; O2SAT 94
[2022-04-29 04:00] VITALS: BP 165/93; PULSE 68; RESP 18; TEMP 36.7; O2SAT 92
[2022-04-29 05:00] VITALS: BMI 40.7
--- NOTE | 2022-04-29 05:37 | PC.NURSE ---
Pt c/o upper abdominal pain this shift and was medicated PRN per JUL. She has had no other complaints. Slept most of this shift. Remains on RA tolerating well.
[2022-04-29 06:31] LABS: Chloride 100 mmol/L (98-107); Potassium 3.9 mmoL/L (3.5-5.1); Sodium 134 mmol/L (136-145)
[2022-04-29 06:34] LABS: Alanine Aminotransferase 21 U/L (12-78); Albumin/Globulin Ratio 1.5 (1.1-1.8); Alkaline Phosphatase 70 U/L (38-126); Anion Gap 8.9 mEq/L (5-15); Aspartate Amino Transferase 21 U/L (14-36); Blood Urea Nitrogen 11 mg/dl (7-17); Calcium 8.9 mg/dl (8.4-10.2); Carbon Dioxide 29 mmol/L (22.0-30.0); Creatinine Clearance Estimated 98 mL/min (50-200); Estimated Glomerular Filt Rate 101 ml/min (>60); GFR (African American) 122 ML/MIN (>60); Glucose 82 mg/dl (74-100); Magnesium 1.5 mg/dl (1.6-2.3)
[2022-04-29 06:50] LABS: Bilirubin,Total < 0.1 mg/dl (0.2-1.3)
[2022-04-29 06:52] LABS: Lipase 2254 U/L (23-300)
--- NOTE | 2022-04-29 06:55 | PC.NURSE ---
critical lipase 2022 reported to hospitalist Paul BENDER
[2022-04-29 07:10] LABS: Basophils % 0.4 % (0.1-2.0); Eosinophils # 0.1 K/mm3 (0.0-0.4); Eosinophils % 1.5 % (0.1-12.0); Hematocrit 31.6 % (37.0-47.0); Hemoglobin 10.7 g/dL (12.2-16.2); Lymphocytes # 1.1 K/mm3 (0.7-4.5); Lymphocytes % 19.7 % (10-50); Mean Corpuscular HGB Conc 33.9 g/dL (31.8-35.4); Mean Corpuscular Hemoglobin 31.4 pg (27.0-31.2); Mean Corpuscular Volume 92.6 fl (81-99); Mean Platelet Volume 7.9 fl (7.4-10.4); Monocytes # 0.4 K/mm3 (0.1-1.0); Monocytes % 6.8 % (1.7-9.3); Neutrophils % 71.6 % (37.0-80.0); Platelet Count 202 K/mm3 (142-424); Red Blood Count 3.41 M/mm3 (4.20-5.40); White Blood Count 5.5 K/mm3 (4.8-10.8)
[2022-04-29 07:36] VITALS: BP 104/63; PULSE 66; RESP 18; TEMP 36.7; O2SAT 90
--- NOTE | 2022-04-29 11:47 | EXP.DC.SUM ---
General Admission date:: 04/28/22 Discharge date: 04/29/22 HPI HPI HPI: Ms. Molina is a 62-year-old female who is a resident of a long-term care facility. She has a past medical history that is positive for Anxiety/Depression, COPD, Seizure Disorder, HTN and Iron Deficiency Anemia. She presents from the local [place] due to Abdominal and chest pain that she reports has been ongoing for several days. She was seen on admission in the ER. The information for the history and physical was obtained from the patient's chart and the patient at bedside. She reports that she was treated and released recently at a [facility] due to her Anxiety. She reports that she was having the pain at the facility. She reports that she was released to the [place] and when she got there she informed the facility of the pain and she was sent to the ER for evaluation. In the ER, the patient underwent EKG and Troponin testing that were found to be within normal limits. CT of the chest and abdomen and pelvis showed findings consistent with Acute Pancreatitis with no peripancreatic fluid collection. The patient had a Lipase that was elevated at 10,502 and Amylase that was elevated at 841. She was also noted to have Lung nodules that were noted on prior exam studies. The patient will be admitted with initial impression: Acute Pancreatitis. She will be made NPO, given IV Fluids and Analgesics. The plan of care was discussed with the patient on admission. She verbalized understanding and agreement with the plan of care. Hospital Course Hospital Course Hospital Course: 62-year-old female who is a resident of a long-term care facility presents with reported several days duration of chest pain and abdominal pain, CT findings and lab findings consistent with Acute Pancreatitis - Acute Pancreatitis - CT of the chest and Abdomen and Pelvis show edema and inflammatory changes around the pancreas, Lipase elevated at 10,502 Patient is s/p Cholecystectomy, not a diabetic, Triglycerides slightly elevated at 276. New meds that could account for development. Liver function normal. Diet advanced during admission. Tolerating full liquids with minimal pain. Repeat lipase showed significant improvement. Pain improving. Meeting criteria for DC to [place]. Return to [place] today. Urinary retention -Noted to have retention during admission. Ramos was placed initially, removed on day of discharge. Patient is on bethanechol 3 times a day at her senior living for history of urinary retention. Will increase to 4 times a day. Also recommend reevaluating antihistamine usage as this can complicate urinary retention. Stopped loratadine. Would use meclizine and hydroxyzine with caution given patient's underlying problem. COPD: Stable, with no signs of exacerbation, will continue home regime Anxiety Disorder Mood disorder -Continue home medications for anxiety and mood. -Concern for Seroquel or Effexor as possible etiology of her pancreatitis in light of no other findings. Decreased Seroquel for nighttime usage 200 mg. Reevaluate at senior living. Seizure Disorder: Continue home Depakote dose Hypertension: Continue home medication regimen Tolerated advancement of diet with minimal pain. Medically stable for discharge back to nursing facility. No morphine required in over 18 hours prior to discharge. Not discharged on controlled substances. Exam Data for Last 24 hours Vital signs and Labs for Last 24 Hours: Temp Pulse Resp BP Pulse Ox 98.0 F 66 18 104/63 L 90 L 04/29/22 07:36 04/29/22 07:36 04/29/22 07:36 04/29/22 07:36 04/29/22 07:36 Laboratory Results - last 24 hr 04/27/22 15:55: Urine Color Yellow, Urine Appearance Clear, Urine pH 7.0, Ur Specific [place] 1.010, Urine Protein Negative, Urine Glucose (UA) Negative, Urine Ketones Negative, Urine Blood Negative, Urine Nitrate Negative, Urine Bilirubin Negative, Urine Urobilinogen 0.2, Ur Leukocyte Esterase Neg
== END 2022-04-29 17:18 ==
LOC: ER 20:15 → 2ND 23:11
PROVIDERS: Admitting Provider Internal Medicine Adolescent Medicine; Emergency Provider Emergency Medicine; Visit Provider Internal Medicine Adolescent Medicine
DX: K85.90 Acute pancreatitis without necrosis or infection, unspecified (principal); E11.8 Type 2 diabetes mellitus with unspecified complications; Z79.899 Other long term (current) drug therapy; I11.0 Hypertensive heart disease with heart failure; F41.9 Anxiety disorder, unspecified; G40.909 Epilepsy, unspecified, not intractable, without status epilepticus; J44.9 Chronic obstructive pulmonary disease, unspecified; I50.9 Heart failure, unspecified; Z79.01 Long term (current) use of anticoagulants; Z20.822 Contact with and (suspected) exposure to COVID-19
CPT/HCPCS: G0378; 36415; 71045; 71250; 74177; 80048; 80053; 80061; 81001; 82150; 83615; 83690; 83735; 84484; 85025; 93005; 94640; 97162; 97165; 99285; C9803; Q9967; U0003; U0005

== ENCOUNTER 2022-05-02 09:09 | Inpatient (IN) | payer MEDICARE, MEDICAID, SELFPAY ==
[2022-05-02] VITALS (21 sets, daily range): BP systolic 84–135; BP diastolic 40–98; PULSE 48–79; RESP 12–24; TEMP 34.2–36.8; O2SAT 90–99; BMI 42.5
--- NOTE | 2022-05-02 09:04 | HMH.EDGENADL ---
Discharge Plan Disposition Patient Disposition: Admitted As Inpatient Condition: Serious Prescriptions Prescriptions: No Action potassium chloride 20 mEq tablet,ER particles/crystals 20 meq PO DAILY artifi.tears(hypromellose)(PF) 0.3 % drops 1 drp OPHTHALMIC Q4-6H PRN (Reason: .) azelastine 137 mcg (0.1 %) aerosol,spray 1 spray NS BID atenolol 25 mg tablet 15 mg PO DAILY budesonide-formoterol [Symbicort] 160-4.5 mcg/actuation HFA aerosol inhaler 1 inh inhalation DAILY venlafaxine 75 mg tablet extended release 24hr 150 mg PO DAILY gabapentin 300 mg capsule 300 mg PO TID Qty: 90 5RF meclizine 12.5 MG tablet 12.5 mg PO BIDP PRN (Reason: Dizziness) polyethylene glycol 3350 17 GM powder in packet 17 gm PO DAILY montelukast 10 MG tablet 10 mg PO PM albuterol sulfate 8.5 GM HFA aerosol inhaler 2 inh IH Q6HP PRN (Reason: shortness of breath or wheezing) terazosin 10 MG capsule 10 mg PO HS ipratropium-albuterol 3 ML solution for nebulization 3 ml IH Q4HP PRN (Reason: Wheezing) bisacodyl 10 MG suppository 10 mg RC DAILYP PRN (Reason: Constipation) loperamide 2 MG tablet 2 mg PO Q6HP PRN (Reason: Diarrhea) lactulose 20 GM/30 ML solution 30 gm PO DAILYP PRN (Reason: Constipation) phenazopyridine 95 MG tablet 190 mg PO TIDP PRN (Reason: BLADDER PAIN) divalproex [Depakote] 500 mg Tablet,Delayed Release (Dr/Ec) 500 mg PO BID Linzess 290 mcg Capsule 290 mcg PO DAILY diazepam 5 mg tablet 5 mg PO BID cranberry extract 425 mg Capsule 850 mg PO DAILY quetiapine 200 mg tablet 200 mg PO HS Label Comments: 200 mg Oral at Bedtime magnesium hydroxide [Milk of Magnesia] 400 mg/5 mL Suspension 30 ml PO DAILYP PRN (Reason: Constipation) cholecalciferol (vitamin D3) 125 mcg (5,000 unit) Tablet 125 mcg PO DAILY nystatin 100,000 unit/gram Powder 0 g topical QID Qty: 0 0RF quetiapine 100 mg Tablet 100 mg PO HS Qty: 0 0RF bethanechol chloride 25 MG tablet 25 mg PO QID 30 Days Qty: 0 0RF hydroxyzine HCl 25 mg Tablet 25 mg PO BID 30 Days Qty: 0 0RF sucralfate 1 GM/10 ML suspension 10 ml PO QID ondansetron HCl 4 MG tablet 4 mg PO TIDP PRN (Reason: Nausea) acetaminophen 500 MG tablet 500 mg PO Q6HP PRN (Reason: Pain) ferrous sulfate 325 MG tablet 325 mg PO TID omeprazole 20 MG tablet,delayed release (DR/EC) 20 mg PO DAILY fluticasone propionate 120 SPR/BOT bottle 2 spr NS DAILY fludrocortisone 0.1 MG tablet 0.1 mg PO DAILY omega-3 acid ethyl esters 1 GM capsule 2 gm PO BID magnesium hydroxide 30 ML suspension 30 ml PO DAILYP PRN (Reason: BOWELS) Clinical Impressions Clinical Impression: Acute hypoxemic respiratory failure, Acute hypercapnic respiratory failure, Urinary tract infection Instructions Patient Instructions: DI for Altered Mental Status Discharge ED Provider: Dav Gee General Adult HPI General Chief complaint: Altered Mental Status Stated complaint: Weakness Time Seen by Provider: 05/02/22 09:04 Mode of Arrival: EMS Source of Information: EMS Limitations: Altered Mental Status History of Present Illness HPI narrative: Is a 62-year-old female with history of hypertension, hyperlipidemia, COPD, seizure disorder, diabetes, presenting with altered mental status. Per EMS, patient was found at nursing facility with altered mental status. 1 day prior to arrival, patient was altered, confused, but still conversational. Today, she was found to be altered and gurgling on her respirations and secretions. EMS was immediately called. On EMS arrival, patient was saturating in the 70% range and minimally responsive. Placed on nonrebreather with response of oxygen to the mid 90s. Given DuoNeb given wheezing and also responded to that. Hemodynamically stable otherwise. Other his
--- NOTE | 2022-05-02 09:06 | XR_ITS ---
FINAL REPORT CLINICAL HISTORY: [facility], productive cough COMPARISON: April 27, 2022 FINDINGS: The heart size is normal. The mediastinum is within normal limits. There are bibasilar, right greater than left, pulmonary opacities. There is pulmonary vascular congestion. There is no pleural effusion. There is no pneumothorax. The bony thorax is intact. IMPRESSION: Right greater than left pulmonary opacities favor atelectasis over pneumonia. Reviewed, Interpreted and Dictated by Maikel Santana III, MD Transcribed by Matthew Leahy Authenticated and . [facility]
--- NOTE | 2022-05-02 09:06 | CT_ITS ---
FINAL REPORT CLINICAL HISTORY: fall, head trauma COMPARISON: February 2021 FINDINGS: Axial images of the head were obtained without contrast. Coronal reformatted images were also obtained.This study was performed with techniques to keep radiation doses as low as reasonably achievable (ALARA). Individualized dose reduction techniques using automated exposure control or adjustment of mA and/or kV according to the patient''s size were employed. There is no evidence of intracranial hemorrhage or mass. The ventricular size is within normal limits. There is no evidence of shift of the midline structures. No abnormal extra axial fluid collection is identified. No skull abnormality is seen on the bone window images. There is postoperative change and mucosal thickening in the sinuses. IMPRESSION: No acute intracranial abnormality. Reviewed, Interpreted and Dictated by Maikel Santana III, MD Transcribed by Matthew Leahy Authenticated and . [facility]
--- NOTE | 2022-05-02 09:34 | EXP.PHA.CONS ---
Pharmacy Consult Date: 05/02/22 Time: 09:34 Referring provider: DR. CHAMPION Reason for Consult:: VANCOMCYIN DOSING Allergies Allergy/AdvReac Type Severity Reaction Status Date / Time aspirin Allergy Verified 03/29/22 13:58 azithromycin Allergy Verified 03/29/22 13:58 bupropion Allergy Verified 03/29/22 13:58 [From Wellbutrin SR] Cephalosporins Allergy Verified 03/29/22 13:58 levofloxacin [From Levaquin] Allergy Verified 03/29/22 13:58 erythromycin base AdvReac Mild Verified 03/29/22 13:58 tramadol AdvReac Mild Verified 03/29/22 13:58 Home Medications Medication Instructions Recorded Confirmed Type acetaminophen 500 mg tablet 500 mg PO Q6HP PRN Pain 04/17/20 04/28/22 History ferrous sulfate 325 mg (65 mg 325 mg PO TID Supplement 04/17/20 04/27/22 History iron) tablet fludrocortisone 0.1 mg tablet 0.1 mg PO DAILY Adrenal disease 04/17/20 04/27/22 History fluticasone propionate 50 2 spr intranasal DAILY Allergy 04/17/20 04/27/22 History mcg/actuation nasal symptoms spray,suspension omega-3 acid ethyl esters 1 gram 2 gm PO BID High cholesterol 04/17/20 04/27/22 History capsule omeprazole 20 mg tablet,delayed 20 mg PO DAILY acid reflux 04/17/20 04/27/22 History release ondansetron HCl 4 mg tablet 4 mg PO TIDP PRN Nausea 04/17/20 04/27/22 History sucralfate 100 mg/mL oral 10 ml PO QID stomach ulcers 04/17/20 04/27/22 History suspension meclizine 12.5 mg tablet 12.5 mg PO BIDP PRN Dizziness 10/11/20 04/27/22 History montelukast 10 mg tablet 10 mg PO PM Allergy symptoms 10/12/20 04/27/22 History polyethylene glycol 3350 17 gram 17 gm PO DAILY CONSTIPATION 10/12/20 04/27/22 History oral powder packet magnesium hydroxide 400 mg/5 mL 30 ml PO DAILYP PRN BOWELS 02/07/21 04/27/22 History oral suspension potassium chloride 20 mEq 20 meq PO DAILY Diet supplement 03/02/21 04/27/22 History tablet,extended release(part/cryst) albuterol sulfate 90 mcg/actuation 2 inh inhalation Q6HP PRN 03/13/21 04/27/22 History aerosol inhaler shortness of breath or wheezing bisacodyl 10 mg rectal suppository 10 mg GA DAILYP PRN Constipation 03/14/21 04/27/22 History ipratropium 0.5 mg-albuterol 3 mg 3 ml inhalation Q4HP PRN Wheezing 03/14/21 04/27/22 History (2.5 mg base)/3 mL nebulization soln lactulose 20 gram/30 mL oral 30 gm PO DAILYP PRN Constipation 03/14/21 04/27/22 History solution loperamide 2 mg tablet 2 mg PO Q6HP PRN Diarrhea 03/14/21 04/27/22 History phenazopyridine 95 mg tablet 190 mg PO TIDP PRN BLADDER PAIN 03/14/21 04/28/22 History terazosin 10 mg capsule 10 mg PO HS urinary retenetion 03/14/21 04/27/22 History atenolol 25 mg tablet 15 mg PO DAILY High blood pressure 03/24/21 04/27/22 History artifi.tears(hypromellose)(PF) 0.3 1 drp OPHTHALMIC Q4-6H PRN . 04/12/21 04/27/22 History % eye drops azelastine 137 mcg (0.1 %) nasal 1 spray intranasal BID Allergy 04/12/21 04/27/22 History spray aerosol symptoms budesonide-formoterol HFA 160 1 inh inhalation DAILY Breathing 01/20/22 04/27/22 History mcg-4.5 mcg/actuation aerosol problems inhaler (Symbicort) venlafaxine 75 mg tablet,extended 150 mg PO DAILY Depression 01/20/22 04/27/22 History release 24 hr gabapentin 300 mg capsule 300 mg PO TID Pain #90 caps 04/22/22 04/27/22 Rx diazepam 5 mg tablet 5 mg PO BID Anxiety 04/27/22 04/27/22 History divalproex 500 mg tablet,delayed 500 mg PO BID seizures 04/27/22 04/27/22 History release (Depakote) linaclotide 290 mcg capsule 290 mcg PO DAILY Irritable bowel 04/27/22 04/27/22 History (Linzess) syndrome cholecalciferol (vitamin D3) 125 125 mcg PO DAILY Supplement 04/28/22 04/28/22 History mcg (5,000 unit) tablet cranberry extract 425 mg capsule 850 mg PO DAILY Supplement 04/28/22 04/28/22 History magnesium hydroxide 400 mg/5 mL 30 ml PO DAILYP PRN Constipation 04/28/22 04/28/22 History oral suspension (Milk of Magnesia) quetiapine 200 mg tablet 200 mg PO HS Anxiety 04/28/22
--- NOTE | 2022-05-02 09:36 | HMH.ITSTN ---
went to get for head CT-- patient stats too low -- trying to get IV and cpap established will call when stable
--- NOTE | 2022-05-02 09:46 | PC.NURSE ---
pt to CT via stretcher with lab animal technologist
[2022-05-02 09:47] LABS: ABG HCO3 29.8 mmhg (22.0-26.0); ABG Oxygen Saturation 95 % (90-100); ABG TCO2 32.5 mmhg (23-27)
[2022-05-02 09:49] LABS: Allen's Test acceptable; Source Right Radial
[2022-05-02 09:51] LABS: ABG PH 7.15 mmol/L (7.35-7.45)
[2022-05-02 09:52] LABS: ABG PCO2 87.4 mmhg (35.0-45.0)
--- NOTE | 2022-05-02 10:00 | PC.NURSE ---
lab contacted about blood draw
--- NOTE | 2022-05-02 10:07 | ECG_ITS ---
APPROVED REPORT Exam: Resting ECG HR:76 bpm ECG Measurements Heart Rate 76 AXES ME 187 P 92 QRSd 117 QRS 40 QT 378 T 80 QTc 408 Conclusion SINUS RHYTHM MODERATE INTRAVENTRICULAR CONDUCTION DELAY [110+ ms QRS DURATION] BORDERLINE ECG UNCONFIRMED REPORT Electronically signed by : Francis Magdaleno MD 05/02/2022 12:14:02
[2022-05-02 10:15] LABS: Coronavirus 19, PCR Not Detected (NotDetected); Influenza A, PCR Not Detected (NotDetected); Influenza B, PCR Not Detected (NotDetected)
--- NOTE | 2022-05-02 10:17 | PC.NURSE ---
ANTONIO DICKEY at for update on POC
[2022-05-02 10:35] LABS: Microscopic, Urine URINE MICROSCOPIC (MICROSCOPIC)
[2022-05-02 10:39] LABS: Appearance,Urine CLOUDY (Clear); Bilirubin,Urine Negative (Negative); Blood, Urine Negative (Negative); Color,Urine YELLOW (Yellow); Glucose,Urine (UA) Negative (Negative); Ketones,Urine Negative (Negative); Leukocyte Esterase,Urine 2+ (Negative); Nitrate,Urine POSITIVE (Negative); Protein,Urine Negative (Negative); Specific Gravity, Urine 1.015 (1.005-1.030); Urobilinogen,Urine 0.2 EU/dl (0.2)
[2022-05-02 10:53] LABS: Bacteria,Urine 3+ /lpf; WBC,Urine TNTC #/hpf (0-3); White Blood Cell Casts,Urine Occasional #/lpf (0)
[2022-05-02 11:07] LABS: POC Glucose,Bedside 112 (70-110)
--- NOTE | 2022-05-02 11:15 | PC.NURSE ---
attempted to get IV and blood from pt, once completed will move pt to room 2, pt tolerating well
--- NOTE | 2022-05-02 11:29 | PC.NURSE ---
MD attempting us guided IV, pt has had multi IV attempts and law blood draws with no success.
[2022-05-02 11:38] LABS: Basophils # 0.1 K/mm3 (0-0.2); Basophils % 0.4 % (0.1-2.0); Eosinophils # 0.1 K/mm3 (0.0-0.4); Eosinophils % 0.6 % (0.1-12.0); Hematocrit 31.3 % (37.0-47.0); Lymphocytes # 0.7 K/mm3 (0.7-4.5); Lymphocytes % 4.9 % (10-50); Mean Corpuscular HGB Conc 35.1 g/dL (31.8-35.4); Mean Corpuscular Hemoglobin 31.3 pg (27.0-31.2); Mean Corpuscular Volume 89.3 fl (81-99); Mean Platelet Volume 8.5 fl (7.4-10.4); Monocytes # 0.6 K/mm3 (0.1-1.0); Monocytes % 4.2 % (1.7-9.3); Neutrophils # 12.7 K/mm3 (1.8-7.8); Neutrophils % 89.9 % (37.0-80.0); Platelet Count 184 K/mm3 (142-424); Red Blood Count 3.51 M/mm3 (4.20-5.40); White Blood Count 14.1 K/mm3 (4.8-10.8)
[2022-05-02 11:40] LABS: MANUAL DIFFERENTIAL MANUAL DIFFERENTIAL (MANUAL DIFF)
--- NOTE | 2022-05-02 11:40 | PC.NURSE ---
pt moved to room 2 placed on bear hugger for rectal temp of 93.5
[2022-05-02 11:57] LABS: Lymphocytes % 10 % (10-50); Monocytes % 5 % (2-9); Neutrophils % 85 % (42-76); Total Cells Counted 100
[2022-05-02 11:58] LABS: Platelet Estimate Normal; RBC Morphology Normal
[2022-05-02 12:11] LABS: ABG Base Excess 1.3 mmol/L (-2.4-2.3); ABG HCO3 28.3 mmhg (22.0-26.0); ABG Oxygen Saturation 95 % (90-100); ABG PH 7.27 mmol/L (7.35-7.45); ABG PO2 78.1 mmhg (80-100); ABG TCO2 30.2 mmhg (23-27)
[2022-05-02 12:14] LABS: Allen's Test ACCEPTABLE; Oxygen 30 %; PEEP BIPAP 14/10; Source Right Radial; Vent Rate 20
[2022-05-02 12:17] LABS: ABG PCO2 63.6 mmhg (35.0-45.0)
--- NOTE | 2022-05-02 12:18 | PC.NURSE ---
MD attempted 2nd IV US guided IV with no success.
--- NOTE | 2022-05-02 12:21 | PC.NURSE ---
ABG results given to
--- NOTE | 2022-05-02 12:26 | PC.NURSE ---
starting central line on pt
[2022-05-02 13:24] LABS: Lactic Acid 0.8 mmol/L (0.7-2.1)
[2022-05-02 13:25] LABS: Alanine Aminotransferase 18 U/L (12-78); Albumin Level 3.3 g/dl (3.5-5.0); Albumin/Globulin Ratio 1.3 (1.1-1.8); Alkaline Phosphatase 90 U/L (38-126); Anion Gap 8.4 mEq/L (5-15); Aspartate Amino Transferase 23 U/L (14-36); Bilirubin,Total 0.2 mg/dl (0.2-1.3); Blood Urea Nitrogen 10 mg/dl (7-17); Calcium 9.5 mg/dl (8.4-10.2); Carbon Dioxide 32 mmol/L (22.0-30.0); Chloride 95 mmol/L (98-107); Creatinine Clearance Estimated 98 mL/min (50-200); Estimated Glomerular Filt Rate 101 ml/min (>60); GFR (African American) 122 ML/MIN (>60); Globulin 2.5 g/dL (1.3-3.2); Glucose 96 mg/dl (74-100); Lipase 505 U/L (23-300); Potassium 4.4 mmoL/L (3.5-5.1); Sodium 131 mmol/L (136-145); Total Protein,Serum 5.8 g/dl (6.3-8.2)
--- NOTE | 2022-05-02 13:31 | PC.NURSE ---
CM contacted for bed admission
--- NOTE | 2022-05-02 13:36 | PC.NURSE ---
Pt rectal temp re-checked and 95.9 at this time. MD notified Pt sweatshirt removed and placed in gown and repositioned in bed. Pt heels floated off the bed with blankets. Warm blankets and bear hugger reapplied.
[2022-05-02 13:38] LABS: NT Pro Brain Natriuretic Pep. 3340 pg/mL (0-125); Troponin I 0.02 ng/ml (0.00-0.034)
--- NOTE | 2022-05-02 14:16 | PC.NURSE ---
Josefina from [facility] called checking on resident and she is aware that patient is being admitted
--- NOTE | 2022-05-02 14:30 | PC.NURSE ---
report called to Liane COTE
--- NOTE | 2022-05-02 14:46 | PC.NURSE ---
arrived to floor by stretcher from ED
--- NOTE | 2022-05-02 15:54 | EXP.HP ---
History of Present Illness *Admission Date: 05/02/22 *Reason for visit:: Altered mental status *History of present illness: Ms. Molina is a 62-year-old female with history of hypertension, hyperlipidemia, COPD, LANCE, seizure disorder and diabetes who presented to the ER with altered mental status. She was just admitted for pancreatitis and stable on room air at discharge back to her nursing facility. She presents today via EMS because she was found at her nursing facility altered and having a difficult time breathing. She did not wear her CPAP at her facility last night. Is a 62-year-old female with history of hypertension, hyperlipidemia, COPD, seizure disorder, diabetes, presenting with altered mental status.? Per EMS, patient was found at nursing facility with altered mental status.? 1 day prior to arrival, patient was altered, confused, but still conversational.? Today, she was found to be altered and gurgling on her respirations and secretions.? EMS was immediately called.? On EMS arrival, patient was saturating in the 70% range and minimally responsive.? Placed on nonrebreather with response of oxygen to the mid 90s.? Given DuoNeb given wheezing and also responded to that.? Hemodynamically stable otherwise.? Other history unable to be obtained secondary to mental status [facility] Disclaimer: The information contained in this section may have been updated after the patient was seen, as this information can be updated by other users. Reviewed per chart, patient is a poor historian and somnolent Medical History Anemia Anxiety Cancer CHF (congestive heart failure) Depression Diabetes type 2, controlled Dyspnea Dyspnea on exertion GERD (gastroesophageal reflux disease) History of MRSA infection of lungs HTN (hypertension) Hx of bipolar disorder Hx: UTI (urinary tract infection) Migraine Mild persistent asthma Multiple pulmonary nodules Personal history of sarcoidosis Sarcoidosis Wheezing Surgical History History of section History of colonoscopy History of dilation and curettage History of hysterectomy History of sinus surgery History of tonsillectomy Hx of cholecystectomy Status post surgical removal of malignant neoplasm of skin Family History CHF (congestive heart failure) Social History Smoking Status: Unknown if ever smoked alcohol intake: never substance use type: denies use current occupational status: unemployed Travel in the last 8 weeks: None household members: caregiver housing: assisted living facility caffeine: No Review of Systems Review of Systems Review of systems:: unable to obtain Meds Home Medications and Allergies Home Medications Medication Instructions Recorded Confirmed Type acetaminophen 500 mg tablet 500 mg PO Q6HP PRN Pain 04/17/20 05/02/22 History ferrous sulfate 325 mg (65 mg 325 mg PO TID Supplement 04/17/20 05/02/22 History iron) tablet fludrocortisone 0.1 mg tablet 0.1 mg PO DAILY Adrenal disease 04/17/20 05/02/22 History fluticasone propionate 50 2 spr intranasal DAILY Allergy 04/17/20 05/02/22 History mcg/actuation nasal symptoms spray,suspension omega-3 acid ethyl esters 1 gram 2 gm PO BID High cholesterol 04/17/20 05/02/22 History capsule omeprazole 20 mg tablet,delayed 20 mg PO DAILY acid reflux 04/17/20 05/02/22 History release ondansetron HCl 4 mg tablet 4 mg PO TIDP PRN Nausea 04/17/20 05/02/22 History sucralfate 100 mg/mL oral 10 ml PO QID stomach ulcers 04/17/20 05/02/22 History suspension meclizine 12.5 mg tablet 12.5 mg PO BIDP PRN Dizziness 10/11/20 05/02/22 History montelukast 10 mg tablet 10 mg PO PM Allergy symptoms 10/12/20 05/02/22 History polyethylene glycol 3350 17 gram 17 gm PO DAILY CONSTIPATION 10/12/20 05/02/22 Hist
[2022-05-02 16:46] LABS: POC Glucose,Bedside 84 (70-110)
[2022-05-02 18:38] LABS: Troponin I 0.02 ng/ml (0.00-0.034)
[2022-05-02 19:48] LABS: ABG HCO3 28.9 mmhg (22.0-26.0); ABG Oxygen Saturation 93 % (90-100); ABG PH 7.21 mmol/L (7.35-7.45); ABG PO2 71.9 mmhg (80-100); ABG TCO2 31.1 mmhg (23-27)
[2022-05-02 19:53] LABS: Allen's Test Non Applicable; Oxygen 50 %; Pressure Support 14; Source Right Radial
[2022-05-02 20:46] LABS: Troponin I 0.02 ng/ml (0.00-0.034)
[2022-05-02 21:44] LABS: POC Glucose,Bedside 112 (70-110)
[2022-05-02 22:50] LABS: ABG Oxygen Saturation 97 % (90-100); ABG PO2 91.5 mmhg (80-100); ABG TCO2 36.8 mmhg (23-27)
--- NOTE | 2022-05-02 23:05 | PC.NURSE ---
RESP CARE NOTE: BIPAP setting adjusted to 22 IPAP and 8 EPAP. Rate also adjusted to 24 bpm with FIO2 decreased to 30% FIO2. Will continue to monitor patient.
[2022-05-02 23:41] LABS: Oxygen 35 %; Pressure Support BIPAP 18/10
[2022-05-02 23:42] LABS: Allen's Test Non Applicable; Source Right Radial
[2022-05-02 23:44] LABS: ABG PCO2 88.7 mmhg (35.0-45.0)
[2022-05-03] VITALS (21 sets, daily range): BP systolic 93–142; BP diastolic 50–61; PULSE 60–83; RESP 20–25; TEMP 36.4–37.1; O2SAT 91–100; BMI 40.6
[2022-05-03 01:31] LABS: Allen's Test ACCEPTABLE; Oxygen 30 %; Pressure Support BIPAP 22/8; Source Right Radial; Vent Rate 24
[2022-05-03 01:32] LABS: ABG PH 7.26 mmol/L (7.35-7.45)
[2022-05-03 01:33] LABS: ABG Base Excess 3.2 mmol/L (-2.4-2.3); ABG HCO3 30.4 mmhg (22.0-26.0); ABG Oxygen Saturation 94 % (90-100); ABG PCO2 70.1 mmhg (35.0-45.0); ABG PO2 71.8 mmhg (80-100); ABG TCO2 32.6 mmhg (23-27)
--- NOTE | 2022-05-03 05:48 | PC.NURSE ---
Notified Paul/hospitalist of critical ABG and pt continues to be very lethargic. Pt will open eyes with mild pain. No speech. pt appears pallor. Vital signs stable. Paul to speak with RT to change bipap settings.
--- NOTE | 2022-05-03 05:51 | PC.NURSE ---
Pt has become less lethargic through the night. Pt will open eyes briefly when you say her name. Pt has had 2590cc urine output during shift, pale yellow and clear. Lung sounds diminished. Pt has been q2 turned. Call light within reach. Temps have been WNL since removing bare hugger at 2200.
[2022-05-03 06:21] LABS: ABG Base Excess 3.6 mmol/L (-2.4-2.3); ABG HCO3 30.1 mmhg (22.0-26.0); ABG Oxygen Saturation 95 % (90-100); ABG PO2 79.7 mmhg (80-100)
[2022-05-03 06:30] LABS: POC Glucose,Bedside 93 (70-110)
[2022-05-03 06:30] LABS: Allen's Test ACCEPTABLE; Oxygen 30% %; Source R RADIAL
[2022-05-03 06:32] LABS: ABG PCO2 62.5 mmhg (35.0-45.0)
[2022-05-03 07:09] LABS: Basophils % 0.2 % (0.1-2.0); Eosinophils # 0.1 K/mm3 (0.0-0.4); Eosinophils % 0.6 % (0.1-12.0); Hematocrit 29.9 % (37.0-47.0); Hemoglobin 10.2 g/dL (12.2-16.2); Lymphocytes # 1.1 K/mm3 (0.7-4.5); Lymphocytes % 11.3 % (10-50); Mean Corpuscular HGB Conc 34.1 g/dL (31.8-35.4); Mean Corpuscular Hemoglobin 30.9 pg (27.0-31.2); Mean Corpuscular Volume 90.7 fl (81-99); Mean Platelet Volume 8.4 fl (7.4-10.4); Monocytes # 0.5 K/mm3 (0.1-1.0); Monocytes % 5.5 % (1.7-9.3); Neutrophils % 82.4 % (37.0-80.0); Platelet Count 193 K/mm3 (142-424); Red Blood Count 3.29 M/mm3 (4.20-5.40); Red Cell Distribution Width 12.9 % (11.5-17.5); White Blood Count 9.7 K/mm3 (4.8-10.8)
[2022-05-03 07:13] LABS: Chloride 100 mmol/L (98-107); Potassium 4.3 mmoL/L (3.5-5.1); Sodium 134 mmol/L (136-145)
[2022-05-03 07:15] LABS: Alanine Aminotransferase 14 U/L (12-78); Alkaline Phosphatase 54 U/L (38-126); Anion Gap 11.3 mEq/L (5-15); Aspartate Amino Transferase 26 U/L (14-36); Bilirubin,Total 0.3 mg/dl (0.2-1.3); Blood Urea Nitrogen 9 mg/dl (7-17); Carbon Dioxide 27 mmol/L (22.0-30.0); Creatinine Clearance Estimated 98 mL/min (50-200); Estimated Glomerular Filt Rate 101 ml/min (>60); GFR (African American) 122 ML/MIN (>60)
[2022-05-03 07:16] LABS: Albumin/Globulin Ratio 1.3 (1.1-1.8); Calcium 9.1 mg/dl (8.4-10.2); Globulin 2.3 g/dL (1.3-3.2); Glucose 76 mg/dl (74-100); Magnesium 1.5 mg/dl (1.6-2.3); Total Protein,Serum 5.3 g/dl (6.3-8.2)
--- NOTE | 2022-05-03 07:32 | HMH.PHAINT1 ---
Pharmacy Intervention Comments: HOME MEDICATION LIST CLARIFIED USING LIST FROM SNF
--- NOTE | 2022-05-03 07:43 | SW/DCPLANNER ---
Addendum entered by Cordelia Liriano RN 05/06/22 13:44: Spoke with Yue at [facility]. Says if they receive DC Summary soon patient is good to come back today. Faxed DC summary. Addendum entered by Cordelia Liriano RN 05/06/22 10:22: Spoke with [facility] and they state patient does have CPAP that is working and is supposed to be getting a BIPAP from [facility]. Contacted [facility] and the person that handles that is out sick, but that it will be addressed first thing next week. Relayed information to Dr. Nolan Addendum entered by Nadia Santacruz 05/04/22 10:31: Updated patient information has been faxed to [facility]/ [facility]. Discharge date is unknown at this time. Original Note: This patient currently resides at [facility] level of care. I will continue to follow up with [facility] until patient is medically stable for discharge. Discharge date is unknown at this time.
--- NOTE | 2022-05-03 10:29 | EXP.PULM.CON ---
History of Present Illness History of present illness: Ms. Molina is a 62-year-old female following in pulmonary clinic for pulmonary nodule and asthma admitted to the hospital on 04/27/2022 complaining of abdominal and chest pain managed for pancreatitis discharged home presented to the hospital again with worsening mentation, found to be in hypercarbic respiratory failure with admission ABG showed severe hypercarbic respiratory failure with a pH of 7.15 and PCO2 of 87 initiated on NIV and eventually pulmonary was called today for further evaluation and management. [facility] Disclaimer: The information contained in this section may have been updated after the patient was seen, as this information can be updated by other users. Medical History (Updated 05/03/22 @ 14:54 by Jaun Do MD) Anemia Anxiety Cancer CHF (congestive heart failure) Depression Diabetes type 2, controlled Dyspnea Dyspnea on exertion GERD (gastroesophageal reflux disease) History of MRSA infection of lungs Hospital-acquired pneumonia HTN (hypertension) Hx of bipolar disorder Hx: UTI (urinary tract infection) Migraine Mild persistent asthma Multiple pulmonary nodules Personal history of sarcoidosis Sarcoidosis Wheezing Surgical History History of section History of colonoscopy History of dilation and curettage History of hysterectomy History of sinus surgery History of tonsillectomy Hx of cholecystectomy Status post surgical removal of malignant neoplasm of skin Family History CHF (congestive heart failure) Social History Smoking Status: Unknown if ever smoked alcohol intake: never substance use type: denies use current occupational status: unemployed Travel in the last 8 weeks: None household members: caregiver housing: assisted living facility caffeine: No Review of Systems Review of Systems Review of systems (narrative): Limited review of systems patient was on BiPAP intermittently responding to all questions. Constitutional Constitutional: Reports body ache(s) and Reports snoring ENT Ears, Nose, Mouth, and Throat: Denies epistaxis *Cardiovascular Cardiovascular: Reports dyspnea and Reports dyspnea on exertion *Respiratory Respiratory: Reports chest congestion, Reports cough, Reports dyspnea, Reports dyspnea on exertion, Reports snoring and Reports stridor *Gastrointestinal Gastrointestinal: Denies abdominal pain, Denies belching and Denies cramping *Musculoskeletal Musculoskeletal: Reports myalgias Psychiatric Psychiatric: Denies homicidal ideation and Denies suicidal ideation Pulmonology Exam Inpatient Vital signs and Labs for Last 24 Hours: Temp Pulse Resp BP Pulse Ox FiO2 98.3 F 64 22 113/53 L 97 30 05/03/22 08:00 05/03/22 06:14 05/03/22 06:00 05/03/22 06:00 05/03/22 06:00 05/03/22 06:14 Laboratory Results - last 24 hr 05/02/22 10:00: SARS-CoV-2 (PCR) Not detected, Influenza A Untype (PCR) Not detected, Influenza Type B (PCR) Not detected 05/02/22 10:25: Urine Color Yellow, Urine Appearance Cloudy, Urine pH 6.0, Ur Specific [place] 1.015, Urine Protein Negative, Urine Glucose (UA) Negative, Urine Ketones Negative, Urine Blood Negative, Urine Nitrate Positive, Urine Bilirubin Negative, Urine Urobilinogen 0.2, Ur Leukocyte Esterase 2+ A, Urine RBC None, Urine WBC Tntc, Ur Squamous Epith Cells 3-5, Urine Bacteria 3+, WBC Casts Occasional 05/02/22 11:00: POC Glucose 112 H 05/02/22 11:20: WBC 14.1 H, RBC 3.51 L, Hgb 11.0 L, Hct 31.3 L, MCV 89.3, MCH 31.3 H, MCHC 35.1, RDW 13.0, Plt Count 184, MPV 8.5, Neut % (Auto) 89.9 H, Lymph % (Auto) 4.9 L, [place] % (Auto) 4.2, Eos % (Auto) 0.6, Baso % (Auto) 0.4, Neut # (Auto) 12.7 H, Lymph # (Auto) 0.7, [place] # (Auto) 0.6, Eos # (Auto) 0.1, Baso # (Auto) 0.1, Total Counted 100, Neutrophils % (Manual) 85 H, Lym
--- NOTE | 2022-05-03 10:55 | DIET.NUTRFU ---
unable to eat, upon visit this AM was wearing BiPap. She is ordered a diabetic diet. No IVF ordered, lasix provided 05/02. Na slightly depleted at 134. Was just here, lives [facility] was not wearing her breathing equipment. Will continue to monitor for meal intake
--- NOTE | 2022-05-03 12:05 | CA_ITS ---
APPROVED REPORT EXAM: Comprehensive 2D, Doppler, and color-flow Echocardiogram Staff Mechanical Engineer: Vivi Gramajo RT(R) Ht: 5 ft 4 in Wt: 238lbs BSA: 2.11 BP: 113/53 mmHg Indications: CHF, COPD, HTN, DM, SOB, Hyperlipidemia, GERD, asthma, LANCE 2D Dimensions LVOT 2.06 cm (M/F) 1.5-2.5 M-Mode Dimensions RVDd 3.04 cm (0.9-2.6) LA Diam 3.05 cm (1.9-4.0) LVDd 4.02 cm (3.5-5.7) Ao Diam 3.00 cm (2.0-3.7) LVDs 2.90 cm (3.5-5.7) IVSd 1.25 cm (0.6-1.1) PWd 1.03 cm (0.6-1.1) EF (Teich) 54.50% FS 27.90% EDV (Teich) 70.80 mL ESV (Teich) 32.20 mL Tricuspid Valve TR P. Velocity 293.00 cm/s RAP Estimate 15.00 mmHg RVSP 49.40 mmHg Left Ventricle Technically difficult and poor study. Left atrium is mildly enlarged, left ventricle is normal size mild concentric left ventricular hypertrophy, estimated ejection fraction 55% with no regional wall motion abnormality, diastolic parameters are not obtained in the study. Right Ventricle Right atrium and right ventricle are mildly enlarged with normal contractility. Aortic Valve Aortic valve is minimally thickened and fibrosed there is no aortic stenosis aortic insufficiency. Mitral Valve Mitral inflow velocities not obtained, there is mild mitral regurgitation. Tricuspid Valve Tricuspid valve grossly normal, there is mild tricuspid regurgitation, calculated right ventricular systolic pressure is 49 mmHg. Pulmonic Valve Pulmonic valve is poorly visualized. Great Vessels Aortic root is normal size. Inferior vena cava is poorly visualized. Pericardium No significant pericardial effusion noted. Conclusion 1. Technically difficult and poor study. Mild biatrial enlargement, normal left ventricular size, mild concentric left ventricular hypertrophy, estimated ejection fraction 55% with no regional wall motion abnormality, diastolic parameters are not obtained the study. 2. Mildly enlarged right ventricle with normal contractility. 3. Mild mitral and tricuspid regurgitation calculated right ventricular systolic pressure is 49 mmHg. 4. No significant pericardial effusion. 5. Inferior vena cava is poorly visualized. Electronically signed by : Lj Pimentel MD 05/03/2022 18:31:12
--- NOTE | 2022-05-03 12:13 | EXP.PN ---
Subjective *Date: 05/03/22 *Time: 13:14 Interval history: No acute events overnight, patient remains on BiPAP. She seems sedated this morning although she does follow some commands. Exam Data for Last 24 hours Vital signs and Labs for Last 24 Hours: Temp Pulse Resp BP Pulse Ox FiO2 98.3 F 65 22 113/53 L 97 30 05/03/22 08:00 05/03/22 11:06 05/03/22 06:00 05/03/22 06:00 05/03/22 06:00 05/03/22 10:36 Laboratory Results - last 24 hr 05/02/22 12:09: Specimen Source Right radial, O2 % 30, ABG pH 7.27 L, ABG pCO2 63.6 H, ABG pO2 78.1 L, ABG HCO3 28.3 H, ABG Total CO2 30.2 H, ABG O2 Saturation 95, ABG Base Excess 1.3, Victor Manuel Test Acceptable, Vent Rate 20, PEEP Bipap 1405/02/22 13:00: Sodium 131 L, Potassium 4.4, Chloride 95 L, Carbon Dioxide 32 H, Anion Gap 8.4, BUN 10, Creatinine 0.60, Estimated Creat Clear 98, Estimated GFR 101, Est GFR ( Amer) 122, Glucose 96, Calcium 9.5, Total Bilirubin 0.2, AST 23, ALT 18, Alkaline Phosphatase 90, Troponin I 0.02, NT-Pro-B Natriuret Pep 3340 H, Total Protein 5.8 L, Albumin 3.3 L, Globulin 2.5, Albumin/Globulin Ratio 1.3, Lipase 505 H 05/02/22 13:00: Lactate 0.8 05/02/22 16:06: Troponin I 0.02 05/02/22 16:38: POC Glucose 84 05/02/22 17:39: Specimen Source Right radial, O2 % 50, ABG pH 7.21 L*, ABG pCO2 74.0 H, ABG pO2 71.9 L, ABG HCO3 28.9 H, ABG Total CO2 31.1 H, ABG O2 Saturation 93, ABG Base Excess 1.0, Victor Manuel Test Non applicable 05/02/22 19:31: Troponin I 0.02 05/02/22 21:24: POC Glucose 112 H 05/02/22 22:30: Specimen Source Right radial, O2 % 35, ABG pH 7.20 L*, ABG pCO2 88.7 H, ABG pO2 91.5, ABG HCO3 34.0 H, ABG Total CO2 36.8 H, ABG O2 Saturation 97, ABG Base Excess 6.0 H, Victor Manuel Test Non applicable 05/03/22 01:15: Specimen Source Right radial, O2 % 30, ABG pH 7.26 L, ABG pCO2 70.1 H, ABG pO2 71.8 L, ABG HCO3 30.4 H, ABG Total CO2 32.6 H, ABG O2 Saturation 94, ABG Base Excess 3.2 H, Victor Manuel Test Acceptable, Vent Rate 24 05/03/22 05:27: POC Glucose 93 05/03/22 06:00: Specimen Source R radial, O2 % 30%, ABG pH 7.30 L, ABG pCO2 62.5 H, ABG pO2 79.7 L, ABG HCO3 30.1 H, ABG Total CO2 32.0 H, ABG O2 Saturation 95, ABG Base Excess 3.6 H, Victor Manuel Test Acceptable, [place] Volume 22/8 rr 22 05/03/22 06:55: WBC 9.7 D, RBC 3.29 L, Hgb 10.2 L, Hct 29.9 L, MCV 90.7, MCH 30.9, MCHC 34.1, RDW 12.9, Plt Count 193, MPV 8.4, Neut % (Auto) 82.4 H, Lymph % (Auto) 11.3, [place] % (Auto) 5.5, Eos % (Auto) 0.6, Baso % (Auto) 0.2, Neut # (Auto) 8.0 H, Lymph # (Auto) 1.1, [place] # (Auto) 0.5, Eos # (Auto) 0.1, Baso # (Auto) 0.0 05/03/22 06:55: Sodium 134 L, Potassium 4.3, Chloride 100, Carbon Dioxide 27, Anion Gap 11.3, BUN 9, Creatinine 0.60, Estimated Creat Clear 98, Estimated GFR 101, Est GFR ( Amer) 122, Glucose 76 D, Calcium 9.1, Magnesium 1.5 L, Total Bilirubin 0.3, AST 26, ALT 14, Alkaline Phosphatase 54, Total Protein 5.3 L, Albumin 3.0 L, Globulin 2.3, Albumin/Globulin Ratio 1.3 I & O for Last 24 hours: Intake & Output 04/30/22 05/01/22 05/02/22 05/03/22 23:59 23:59 23:59 23:59 Intake Total 450 / 450 95 / 95 Output Total 2890 / 2890 1250 / 1250 Balance -2440 / -2440 -1155 / -1155 Weight 108 kg 108 kg Microbiology Reports for the Last 24 Hours: Microbiology 05/02/22 10:25 Urine,Catheterized Urine Culture - Preliminary Constitutional Constitutional: moderate distress (on bipap, sedated ), morbidly obese, chronically ill appearing, cooperative and somnolent *Routine HEENT Exam Head: Present normocephalic and atraumatic Eye: Present EOMI; Absent PERRL (Pupils are equal bilaterally, neither constricted or dilated, approximately 5 mm, but minimally responsive to light) ENT: Present mucous membranes moist *Routine Neck Exam Neck: Present supple; Absent lymphadenopathy *Routine Respiratory Exam Respiratory: Present crackles (Diffusely) and diminished air movement; Absent accessory muscle use, rhonchi or wheezes *Routine Cardiovascular Exam Cardiovascular: Present RRR; Absent murmur *R
--- NOTE | 2022-05-03 12:14 | XR_ITS ---
FINAL REPORT CLINICAL HISTORY: Confirm PICC line placement COMPARISON: 05/02/2022 FINDINGS: SINGLE-VIEW CHEST The heart size is normal. The mediastinum is normal. Left PICC line tip terminates in the region of the left brachiocephalic vein. There are persistent but improved bibasilar pulmonary opacities consistent with improved pneumonia. There is no pneumothorax. IMPRESSION: Left PICC line tip as above. Persistent but improved pneumonia. Reviewed, Interpreted and Dictated by Maikel Santana III, MD Transcribed by Nancy Barnes Authenticated and [facility]
[2022-05-03 13:03] LABS: D-Dimer 1.22 ug/mL (0.0-0.5)
[2022-05-03 14:29] LABS: POC Glucose,Bedside 80 (70-110)
--- NOTE | 2022-05-03 15:09 | XR_ITS ---
FINAL REPORT CLINICAL HISTORY: picc line placement COMPARISON: Earlier the same day. FINDINGS: A single portable view of the chest was obtained. The left PICC line has been advanced with the tip now in the lower SVC. The heart size and pulmonary vascularity are within normal limits. The mediastinum is within normal limits. There are right lung base opacities which may represent atelectasis or pneumonia. The bony thorax is intact. IMPRESSION: Left PICC line with tip in the lower SVC. Right lung base atelectasis or pneumonia. Reviewed, Interpreted and Dictated by Maikel Santana III, MD Transcribed by Mariluz Damon Authenticated and . [facility]
[2022-05-03 15:32] LABS: ABG Base Excess 2.6 mmol/L (-2.4-2.3); ABG Oxygen Saturation 98 % (90-100); ABG PO2 102.4 mmhg (80-100); ABG TCO2 30.9 mmhg (23-27)
[2022-05-03 15:38] LABS: Oxygen 30% %
[2022-05-03 15:39] LABS: Allen's Test ACCEPTABLE; Source R RADIAL
[2022-05-03 15:40] LABS: ABG PCO2 60.6 mmhg (35.0-45.0)
[2022-05-03 16:25] LABS: POC Glucose,Bedside 85 (70-110)
[2022-05-03 16:47] LABS: Amphetamine/Metha Screen,Urine Negative ng/ml (<1000)
[2022-05-03 16:48] LABS: Barbiturates Screen,Urine Negative ng/ml (<200)
[2022-05-03 16:49] LABS: Benzodiazepines Screen,Urine Negative ng/ml (<200); Cannabinoid Screen,Urine Negative ng/ml (<50)
[2022-05-03 16:50] LABS: Cocaine Screen,Urine Negative ng/ml (<300); Methadone Screen,Urine Negative ng/ml (<300)
[2022-05-03 16:51] LABS: Opiate Screen,Urine Negative ng/ml (<300)
[2022-05-03 16:52] LABS: Phencyclidine Screen,Urine Negative ng/ml (<25)
--- NOTE | 2022-05-03 17:57 | PC.NURSE ---
VS stable, PICC line placed and verified at 1730 by radiology. Patient able to open eyes to voice but not oriented to place, situation, or time. Lung sounds diminished with minimal air movement. Turned q2. No changes noted.
[2022-05-03 22:26] LABS: POC Glucose,Bedside 137 (70-110)
[2022-05-04] VITALS (21 sets, daily range): BP systolic 122–168; BP diastolic 68–94; PULSE 70–91; RESP 20–24; TEMP 36.5–37; O2SAT 94–100; BMI 40.6; BMI 40.2
[2022-05-04 06:24] LABS: ABG Base Excess 7.6 mmol/L (-2.4-2.3); ABG HCO3 33.2 mmhg (22.0-26.0); ABG Oxygen Saturation 98 % (90-100); ABG PH 7.35 mmol/L (7.35-7.45); ABG PO2 107.9 mmhg (80-100); ABG TCO2 35.1 mmhg (23-27)
[2022-05-04 06:25] LABS: Oxygen 30% %
[2022-05-04 06:26] LABS: Allen's Test Patient Unable; Source Right Radial; Vent Rate 20
[2022-05-04 06:28] LABS: ABG PCO2 61.8 mmhg (35.0-45.0)
--- NOTE | 2022-05-04 07:38 | PC.NURSE ---
Pt had an episode of nausea/vomiting t/o night. Pt was receiving bath and vomited into bipap mask. Mask was immediately removed and pt was sat up. Pt put on 2 L nc, tolerated well with sats in mid 90s. 4mg Zofran administered. New bipap mask then reapplied. No change to bipap settings. Pt has become more alert t/o shift. Pt can say name birthday and knows where she is. Pt will answer yes and no questions and keep eyes open for longer periods of time. Lung sounds diminished. Call light within reach.
[2022-05-04 08:55] LABS: Basophils % 0.2 % (0.1-2.0); Eosinophils % 0.5 % (0.1-12.0); Hematocrit 32.2 % (37.0-47.0); Hemoglobin 10.8 g/dL (12.2-16.2); Lymphocytes # 0.4 K/mm3 (0.7-4.5); Mean Corpuscular HGB Conc 33.6 g/dL (31.8-35.4); Mean Corpuscular Hemoglobin 31.5 pg (27.0-31.2); Mean Platelet Volume 7.5 fl (7.4-10.4); Monocytes # 0.1 K/mm3 (0.1-1.0); Neutrophils # 5.6 K/mm3 (1.8-7.8); Neutrophils % 90.4 % (37.0-80.0); Platelet Count 254 K/mm3 (142-424); Red Blood Count 3.43 M/mm3 (4.20-5.40); Red Cell Distribution Width 13.2 % (11.5-17.5); White Blood Count 6.2 K/mm3 (4.8-10.8)
[2022-05-04 08:59] LABS: MANUAL DIFFERENTIAL MANUAL DIFFERENTIAL (MANUAL DIFF)
[2022-05-04 09:01] LABS: Chloride 94 mmol/L (98-107); Potassium 3.6 mmoL/L (3.5-5.1); Sodium 137 mmol/L (136-145)
[2022-05-04 09:04] LABS: Alanine Aminotransferase 18 U/L (12-78); Albumin Level 3.6 g/dl (3.5-5.0); Albumin/Globulin Ratio 1.5 (1.1-1.8); Alkaline Phosphatase 86 U/L (38-126); Anion Gap 10.6 mEq/L (5-15); Aspartate Amino Transferase 18 U/L (14-36); Blood Urea Nitrogen 14 mg/dl (7-17); Calcium 9.7 mg/dl (8.4-10.2); Carbon Dioxide 36 mmol/L (22.0-30.0); Creatinine Clearance Estimated 98 mL/min (50-200); Estimated Glomerular Filt Rate 85 ml/min (>60); GFR (African American) 102 ML/MIN (>60); Globulin 2.4 g/dL (1.3-3.2); Glucose 137 mg/dl (74-100)
[2022-05-04 09:06] LABS: Bilirubin,Total 0.1 mg/dl (0.2-1.3)
[2022-05-04 09:25] LABS: Lymphocytes % 8 % (10-50); Monocytes % 1 % (2-9); Neutrophils % 91 % (42-76); Platelet Estimate Normal; RBC Morphology Normal; Total Cells Counted 100
--- NOTE | 2022-05-04 09:56 | EXP.PULM.PN ---
Subjective *Date: 05/04/22 *Time: 13:09 Interval history: No acute respiratory events overnight. Patient continues to remain on BiPAP overnight. More alert and oriented this morning engaging in conversation. Pulmonology Exam Inpatient Vital signs and Labs for Last 24 Hours: Temp Pulse Resp BP Pulse Ox FiO2 98.4 F 80 24 142/81 H 100 30 05/04/22 08:00 05/04/22 09:42 05/04/22 06:00 05/04/22 06:00 05/04/22 06:00 05/04/22 09:42 Laboratory Results - last 24 hr 05/03/22 12:39: D-Dimer 1.22 H 05/03/22 14:22: POC Glucose 80 05/03/22 15:05: Specimen Source R radial, O2 % 30%, ABG pH 7.30 L, ABG pCO2 60.6 H, ABG pO2 102.4 H, ABG HCO3 29.0 H, ABG Total CO2 30.9 H, ABG O2 Saturation 98, ABG Base Excess 2.6 H, Victor Manuel Test Acceptable, Tidal Volume 24/12 rr 20 05/03/22 16:09: POC Glucose 85 05/03/22 16:25: Urine Opiates Screen Negative, Urine Methadone Screen Negative, Ur Barbituates Screen Negative, Ur Phencyclidine Scrn Negative, Ur Amphetamines Screen Negative, U Benzodiazepines Scrn Negative, Urine Cocaine Screen Negative, U Marijuana (THC) Screen Negative 05/03/22 22:17: POC Glucose 137 H 05/04/22 04:39: Specimen Source Right radial, O2 % 30%, ABG pH 7.35, ABG pCO2 61.8 H, ABG pO2 107.9 H, ABG HCO3 33.2 H, ABG Total CO2 35.1 H, ABG O2 Saturation 98, ABG Base Excess 7.6 H, Victor Manuel Test Patient unable, Vent Rate 20, Tidal Volume Bipap 24/14 05/04/22 08:45: WBC 6.2 D, RBC 3.43 L, Hgb 10.8 L, Hct 32.2 L, MCV 94.0, MCH 31.5 H, MCHC 33.6, RDW 13.2, Plt Count 254 D, MPV 7.5, Neut % (Auto) 90.4 H, Lymph % (Auto) 7.0 L, [place] % (Auto) 2.0, Eos % (Auto) 0.5, Baso % (Auto) 0.2, Neut # (Auto) 5.6, Lymph # (Auto) 0.4 L, [place] # (Auto) 0.1, Eos # (Auto) 0.0, Baso # (Auto) 0.0, Total Counted 100, Neutrophils % (Manual) 91 H, Lymphocytes % (Manual) 8 L, Monocytes % (Manual) 1 L, Platelet Estimate Normal, RBC Morphology Normal 05/04/22 08:45: Sodium 137, Potassium 3.6, Chloride 94 L, Carbon Dioxide 36 H, Anion Gap 10.6, BUN 14 D, Creatinine 0.70, Estimated Creat Clear 98, Estimated GFR 85, Est GFR ( Amer) 102, Glucose 137 H, Calcium 9.7, Total Bilirubin 0.1 L, AST 18 D, ALT 18 D, Alkaline Phosphatase 86, Total Protein 6.0 L, Albumin 3.6 D, Globulin 2.4, Albumin/Globulin Ratio 1.5 I & O for Labs for Last 24 Hours: Intake & Output 05/01/22 05/02/22 05/03/22 05/04/22 23:59 23:59 23:59 23:59 Intake Total 450 / 450 545 / 545 340 / 340 Output Total 2890 / 2890 4220 / 4220 675 / 675 Balance -2440 / -2440 -3675 / -3675 -335 / -335 Weight 238 lb 1.588 oz 238 lb 1.588 oz 237 lb 10.533 oz Microbiology Reports for the Last 24 Hours: Microbiology 05/02/22 10:25 Urine,Catheterized Urine Culture - Preliminary Constitutional: Present moderate distress Head: Present normocephalic and atraumatic ENT: Present normal exam, normal oropharynx and mucous membranes moist Neck: Present normal inspection and trachea midline Respiratory: Present prolonged expiratory phase, respiratory distress, wheezes, diminished air movement and able to speak in complete sentences Cardiac: Present S1/S2, Tachycardia and radial pulses present GI: Present soft and distention; Absent tenderness or guarding Rectal (female): Present deferred (female): Present deferred Skin: Present intact; Absent cyanosis or jaundice Neuro: Present alert, awake and oriented x 3 Extremities: Present normal inspection; Absent clubbing or cyanosis Psychiatric: Present normal affect and cooperative Assessment and Plan *Assessment and plan (1) Acute hypercapnic respiratory failure: Status: Acute Category: Medical Code(s): J96.02 - Acute respiratory failure with hypercapnia (2) Hospital-acquired pneumonia: Status: Acute Category: Medical Code(s): J18.9 - Pneumonia, unspecified organism; Y95 - Nosocomial condition Plan #Acute hypercarbic respiratory failure: #Hospital-acquired pneumonia: #History of MRSA pneumonia: Ms. Molina is a 62-year-old fema
[2022-05-04 12:03] LABS: POC Glucose,Bedside 151 (70-110)
[2022-05-04 17:01] LABS: POC Glucose,Bedside 129 (70-110)
--- NOTE | 2022-05-04 18:34 | PC.NURSE ---
Patient had vomited while on the bipap after taking am meds. VS stable and patient stable on 2LNC after bipap was removed. Lung sounds diminished. Tylenol given for patient's TMJ pain.
--- NOTE | 2022-05-04 18:59 | EXP.PN ---
Subjective *Date: 05/04/22 *Time: 19:08 Interval history: Patient still on BiPAP this morning, but she is more awake and alert, talking and following commands. She is able to raise both hands over her head and wiggle both feet. Exam Data for Last 24 hours Vital signs and Labs for Last 24 Hours: Temp Pulse Resp BP Pulse Ox FiO2 97.7 F 78 24 142/81 H 98 30 05/04/22 15:54 05/04/22 18:00 05/04/22 06:00 05/04/22 06:00 05/04/22 14:07 05/04/22 09:42 Laboratory Results - last 24 hr 05/03/22 22:17: POC Glucose 137 H 05/04/22 04:39: Specimen Source Right radial, O2 % 30%, ABG pH 7.35, ABG pCO2 61.8 H, ABG pO2 107.9 H, ABG HCO3 33.2 H, ABG Total CO2 35.1 H, ABG O2 Saturation 98, ABG Base Excess 7.6 H, Victor Manuel Test Patient unable, Vent Rate 20, Tidal Volume Bipap 05/04/22 08:45: WBC 6.2 D, RBC 3.43 L, Hgb 10.8 L, Hct 32.2 L, MCV 94.0, MCH 31.5 H, MCHC 33.6, RDW 13.2, Plt Count 254 D, MPV 7.5, Neut % (Auto) 90.4 H, Lymph % (Auto) 7.0 L, [place] % (Auto) 2.0, Eos % (Auto) 0.5, Baso % (Auto) 0.2, Neut # (Auto) 5.6, Lymph # (Auto) 0.4 L, [place] # (Auto) 0.1, Eos # (Auto) 0.0, Baso # (Auto) 0.0, Total Counted 100, Neutrophils % (Manual) 91 H, Lymphocytes % (Manual) 8 L, Monocytes % (Manual) 1 L, Platelet Estimate Normal, RBC Morphology Normal 05/04/22 08:45: Sodium 137, Potassium 3.6, Chloride 94 L, Carbon Dioxide 36 H, Anion Gap 10.6, BUN 14 D, Creatinine 0.70, Estimated Creat Clear 98, Estimated GFR 85, Est GFR ( Amer) 102, Glucose 137 H, Calcium 9.7, Total Bilirubin 0.1 L, AST 18 D, ALT 18 D, Alkaline Phosphatase 86, Total Protein 6.0 L, Albumin 3.6 D, Globulin 2.4, Albumin/Globulin Ratio 1.5 05/04/22 11:45: POC Glucose 151 H 05/04/22 16:43: POC Glucose 129 H I & O for Last 24 hours: Intake & Output 05/01/22 05/02/22 05/03/22 05/04/22 23:59 23:59 23:59 23:59 Intake Total 450 / 450 545 / 545 500 / 500 Output Total 2890 / 2890 4220 / 4220 3075 / 3075 Balance -2440 / -2440 -3675 / -3675 -2575 / -2575 Weight 108 kg 108 kg 107 kg Microbiology Reports for the Last 24 Hours: Microbiology 05/02/22 13:00 Blood Blood Culture - Preliminary NO GROWTH AFTER 48 HOURS 05/02/22 13:00 Blood Blood Culture - Preliminary NO GROWTH AFTER 48 HOURS 05/02/22 10:25 Urine,Catheterized Urine Culture - Preliminary Constitutional Constitutional: no acute distress, morbidly obese, chronically ill appearing and cooperative *Routine HEENT Exam Head: Present normocephalic and atraumatic Eye: Present EOMI and PERRL ENT: Present mucous membranes moist *Routine Neck Exam Neck: Present supple; Absent lymphadenopathy *Routine Respiratory Exam Respiratory: Present crackles (Diffusely) and diminished air movement; Absent accessory muscle use, rhonchi or wheezes *Routine Cardiovascular Exam Cardiovascular: Present RRR; Absent murmur *Routine Abdominal Exam Abdominal: Present soft and normoactive bowel sounds; Absent tenderness, distended, rebound or guarding *Routine Rectal Exam Patient deferred: visual exam *Routine Exam Patient deferred: external exam *Routine Extremities Exam Extremities: Present edema (non-pittng lymphedema); Absent cyanosis or clubbing *Routine Skin Exam Skin: Present warm; Absent rash *Routine Neurological Exam Neurological: Present alert, oriented X3, CN II-XII intact and normal tone; Absent altered mental status Routine Psychiatric Exam Psychiatric: Present normal affect and cooperative Assessment and Plan *Assessment and plan (1) Sepsis: Status: Acute Category: Medical Code(s): A41.9 - Sepsis, unspecified organism (2) Acute hypercapnic respiratory failure: Status: Acute Category: Medical Code(s): J96.02 - Acute respiratory failure with hypercapnia (3) Acute hypoxemic respiratory failure: Status: Acute Category: Medical Code(s): J96.01 - Acute respiratory failure with hypoxia
[2022-05-04 20:41] LABS: Vancomycin,Trough 17.2 ug/mL (5.0-10.0)
[2022-05-05] VITALS (17 sets, daily range): BP systolic 123–169; BP diastolic 71–95; PULSE 46–82; RESP 16–24; TEMP 36.5–37.3; O2SAT 96–100; BMI 37.5
[2022-05-05 01:03] LABS: POC Glucose,Bedside 138 (70-110)
[2022-05-05 01:21] LABS: POC Glucose,Bedside 177 (70-110)
[2022-05-05 02:00] LABS: Vancomycin,Peak 31.2 ug/ml (11-39)
--- NOTE | 2022-05-05 05:33 | PC.ADMIT ---
[email or web address] Healthcare Admission Note: The patient,Johanny Molina,62 y/o, was given written information regarding hospital policies, unit procedures and contact persons. Patient's smoking status: Unknown if ever smoked. Vital Signs - 8 hr 05/04/22 21:39 05/04/22 21:39 05/04/22 22:00 Temperature Pulse Rate 84 86 Pulse Rate [Left Radial] 81 Respiratory Rate 20 Blood Pressure [Right Arm] 146/79 H 02 Sat by Pulse Oximetry 94 L Fraction of Inspired Oxygen 05/05/22 00:00 05/05/22 00:00 05/05/22 02:30 Temperature 99.1 F Pulse Rate 70 79 Pulse Rate [Left Radial] 81 Respiratory Rate 18 Blood Pressure [Right Arm] 157/78 H 02 Sat by Pulse Oximetry 98 Fraction of Inspired Oxygen 05/05/22 02:30 05/04/22 23:25 05/05/22 02:30 Temperature Pulse Rate 82 Pulse Rate [Left Radial] Respiratory Rate Blood Pressure [Right Arm] 02 Sat by Pulse Oximetry Fraction of Inspired Oxygen 30 30 05/05/22 03:50 05/05/22 04:00 Temperature 99.0 F Pulse Rate 62 Pulse Rate [Left Radial] 62 Respiratory Rate 20 Blood Pressure [Right Arm] 125/87 02 Sat by Pulse Oximetry 100 Fraction of Inspired Oxygen
--- NOTE | 2022-05-05 05:33 | PC.NURSE ---
Seroquel given per Caitlyn JENSEN.
[2022-05-05 05:58] LABS: POC Glucose,Bedside 95 (70-110)
--- NOTE | 2022-05-05 05:58 | PC.NURSE ---
Pt. confused through out the night and pulling at bipap. Had to go to the room at least a dozen times. Aox times 1 and an assist times 2. got an order for seroquel to try to help here rest. No other changes noted.
[2022-05-05 07:39] LABS: Basophils % 0.5 % (0.1-2.0); Eosinophils % 0.6 % (0.1-12.0); Hematocrit 31.8 % (37.0-47.0); Hemoglobin 10.7 g/dL (12.2-16.2); Lymphocytes % 25.4 % (10-50); Mean Corpuscular HGB Conc 33.8 g/dL (31.8-35.4); Mean Corpuscular Hemoglobin 31.5 pg (27.0-31.2); Mean Corpuscular Volume 93.3 fl (81-99); Mean Platelet Volume 7.9 fl (7.4-10.4); Monocytes # 0.7 K/mm3 (0.1-1.0); Monocytes % 8.9 % (1.7-9.3); Neutrophils % 64.6 % (37.0-80.0); Platelet Count 272 K/mm3 (142-424); Red Blood Count 3.41 M/mm3 (4.20-5.40); Red Cell Distribution Width 13.2 % (11.5-17.5); White Blood Count 7.8 K/mm3 (4.8-10.8)
[2022-05-05 07:51] LABS: Chloride 92 mmol/L (98-107); Sodium 137 mmol/L (136-145)
[2022-05-05 07:54] LABS: Alanine Aminotransferase 17 U/L (12-78); Albumin Level 3.5 g/dl (3.5-5.0); Albumin/Globulin Ratio 1.4 (1.1-1.8); Alkaline Phosphatase 86 U/L (38-126); Aspartate Amino Transferase 24 U/L (14-36); Bilirubin,Total 0.2 mg/dl (0.2-1.3); Blood Urea Nitrogen 21 mg/dl (7-17); Carbon Dioxide 38 mmol/L (22.0-30.0); Creatinine Clearance Estimated 91 mL/min (50-200); Estimated Glomerular Filt Rate 72 ml/min (>60); GFR (African American) 88 ML/MIN (>60); Globulin 2.5 g/dL (1.3-3.2); Glucose 85 mg/dl (74-100)
[2022-05-05 07:55] LABS: Anion Gap 9.8 mEq/L (5-15)
[2022-05-05 07:56] LABS: Potassium 2.8 mmoL/L (3.5-5.1)
--- NOTE | 2022-05-05 08:31 | PC.NURSE ---
md is aware of patient potassium level
--- NOTE | 2022-05-05 08:33 | EXP.PHA.CONS ---
Pharmacy Consult Date: 05/05/22 Time: 08:33 Referring provider: DR SHAH Reason for Consult:: VANCOMYCIN PK LEVELS OBTAINED Allergies Allergy/AdvReac Type Severity Reaction Status Date / Time aspirin Allergy Verified 05/02/22 18:07 azithromycin Allergy Verified 05/02/22 18:07 bupropion Allergy Verified 05/02/22 18:07 [From Wellbutrin SR] Cephalosporins Allergy Verified 05/02/22 18:07 levofloxacin [From Levaquin] Allergy Verified 05/02/22 18:07 erythromycin base AdvReac Mild Verified 05/02/22 18:07 tramadol AdvReac Mild Verified 05/02/22 18:07 Home Medications Medication Instructions Recorded Confirmed Type acetaminophen 500 mg tablet 500 mg PO Q6HP PRN Pain 04/17/20 05/02/22 History ferrous sulfate 325 mg (65 mg 325 mg PO TID Supplement 04/17/20 05/02/22 History iron) tablet fludrocortisone 0.1 mg tablet 0.1 mg PO DAILY Adrenal disease 04/17/20 05/02/22 History fluticasone propionate 50 2 spr intranasal DAILY Allergy 04/17/20 05/02/22 History mcg/actuation nasal symptoms spray,suspension omega-3 acid ethyl esters 1 gram 2 gm PO BID High cholesterol 04/17/20 05/02/22 History capsule omeprazole 20 mg tablet,delayed 20 mg PO DAILY acid reflux 04/17/20 05/02/22 History release ondansetron HCl 4 mg tablet 4 mg PO TIDP PRN Nausea 04/17/20 05/02/22 History sucralfate 100 mg/mL oral 10 ml PO BID stomach ulcers 04/17/20 05/03/22 History suspension meclizine 12.5 mg tablet 12.5 mg PO BIDP PRN Dizziness 10/11/20 05/02/22 History montelukast 10 mg tablet 10 mg PO PM Allergy symptoms 10/12/20 05/02/22 History polyethylene glycol 3350 17 gram 17 gm PO DAILY CONSTIPATION 10/12/20 05/02/22 History oral powder packet magnesium hydroxide 400 mg/5 mL 30 ml PO DAILYP PRN BOWELS 02/07/21 05/02/22 History oral suspension potassium chloride 20 mEq 20 meq PO DAILY Potassium 03/02/21 05/02/22 History tablet,extended release(part/cryst) replacement albuterol sulfate 90 mcg/actuation 2 inh inhalation Q6HP PRN 03/13/21 05/02/22 History aerosol inhaler shortness of breath or wheezing bisacodyl 10 mg rectal suppository 10 mg GA DAILYP PRN Constipation 03/14/21 05/02/22 History ipratropium 0.5 mg-albuterol 3 mg 3 ml inhalation Q4HP PRN Wheezing 03/14/21 05/02/22 History (2.5 mg base)/3 mL nebulization soln lactulose 20 gram/30 mL oral 30 gm PO DAILYP PRN Constipation 03/14/21 05/02/22 History solution loperamide 2 mg tablet 2 mg PO Q6HP PRN Diarrhea 03/14/21 05/02/22 History phenazopyridine 95 mg tablet 190 mg PO TIDP PRN Urinary symptoms 03/14/21 05/02/22 History terazosin 10 mg capsule 10 mg PO HS urinary retenetion 03/14/21 05/02/22 History atenolol 25 mg tablet 25 mg PO DAILY High blood pressure 03/24/21 05/03/22 History artifi.tears(hypromellose)(PF) 0.3 1 drp OPHTHALMIC Q4-6H PRN . 04/12/21 05/02/22 History % eye drops azelastine 137 mcg (0.1 %) nasal 1 spray intranasal BID Allergy 04/12/21 05/02/22 History spray aerosol symptoms budesonide-formoterol HFA 160 1 inh inhalation BID Breathing 01/20/22 05/03/22 History mcg-4.5 mcg/actuation aerosol problems inhaler (Symbicort) venlafaxine 75 mg tablet,extended 150 mg PO DAILY Depression 01/20/22 05/02/22 History release 24 hr gabapentin 300 mg capsule 300 mg PO TID Pain #90 caps 04/22/22 05/02/22 Rx diazepam 5 mg tablet 5 mg PO BID Anxiety 04/27/22 05/02/22 History divalproex 500 mg tablet,delayed 500 mg PO BID seizures 04/27/22 05/02/22 History release (Depakote) linaclotide 290 mcg capsule 290 mcg PO HS Irritable bowel 04/27/22 05/03/22 History (Linzess) syndrome cholecalciferol (vitamin D3) 125 125 mcg PO DAILY Supplement 04/28/22 05/02/22 History mcg (5,000 unit) tablet cranberry extract 425 mg capsule 850 mg PO DAILY urinary tract 04/28/22 05/03/22 History health quetiapine 200 mg tablet 200 mg PO HS Anxiety 04/28/22 04/28/22 History bethanechol chloride 25 mg tablet 25 mg PO QID bladder control 30 04/29/22 05/02/22
[2022-05-05 09:06] LABS: ABG Base Excess 12.3 mmol/L (-2.4-2.3); ABG HCO3 35.7 mmhg (22.0-26.0); ABG Oxygen Saturation 97 % (90-100); ABG PCO2 48.6 mmhg (35.0-45.0); ABG PH 7.48 mmol/L (7.35-7.45); ABG PO2 89.1 mmhg (80-100); ABG TCO2 37.2 mmhg (23-27)
[2022-05-05 09:12] LABS: Allen's Test Acceptable; Oxygen 3L %; Source Right Radial
--- NOTE | 2022-05-05 10:22 | EXP.PULM.PN ---
Subjective *Date: 05/05/22 *Time: 15:11 Interval history: No acute respiratory events overnight. Patient awake and oriented this morning. Engaging in conversation. Denies any new respiratory complaints. Admits improving respiratory symptoms. Pulmonology Exam Inpatient Vital signs and Labs for Last 24 Hours: Temp Pulse Resp BP Pulse Ox FiO2 98.1 F 67 16 123/71 99 30 05/05/22 07:26 05/05/22 07:26 05/05/22 07:26 05/05/22 07:26 05/05/22 07:26 05/05/22 02:30 Laboratory Results - last 24 hr 05/02/22 10:25: Urine Color Yellow, Urine Appearance Cloudy, Urine pH 6.0, Ur Specific [place] 1.015, Urine Protein Negative, Urine Glucose (UA) Negative, Urine Ketones Negative, Urine Blood Negative, Urine Nitrate Positive, Urine Bilirubin Negative, Urine Urobilinogen 0.2, Ur Leukocyte Esterase 2+ A, Urine RBC None, Urine WBC Tntc, Ur Squamous Epith Cells 3-5, Urine Bacteria 3+, WBC Casts Occasional 05/04/22 06:51: POC Glucose 138 H 05/04/22 11:45: POC Glucose 151 H 05/04/22 16:43: POC Glucose 129 H 05/04/22 18:57: Specimen Source Right radial, O2 % 3l, ABG pH 7.48 H, ABG pCO2 48.6 H, ABG pO2 89.1, ABG HCO3 35.7 H, ABG Total CO2 37.2 H, ABG O2 Saturation 97, ABG Base Excess 12.3 H, Victor Manuel Test Acceptable 05/04/22 19:58: Vancomycin Trough 17.2 H 05/04/22 20:18: POC Glucose 177 H 05/05/22 01:05: Vancomycin Peak 31.2 05/05/22 05:49: POC Glucose 95 05/05/22 07:30: WBC 7.8 D, RBC 3.41 L, Hgb 10.7 L, Hct 31.8 L, MCV 93.3, MCH 31.5 H, MCHC 33.8, RDW 13.2, Plt Count 272, MPV 7.9, Neut % (Auto) 64.6, Lymph % (Auto) 25.4, [place] % (Auto) 8.9, Eos % (Auto) 0.6, Baso % (Auto) 0.5, Neut # (Auto) 5.0, Lymph # (Auto) 2.0, [place] # (Auto) 0.7, Eos # (Auto) 0.0, Baso # (Auto) 0.0 05/05/22 07:30: Sodium 137, Potassium 2.8 L* D, Chloride 92 L, Carbon Dioxide 38 H, Anion Gap 9.8, BUN 21 H D, Creatinine 0.80, Estimated Creat Clear 91, Estimated GFR 72, Est GFR ( Amer) 88, Glucose 85 D, Calcium 10.0, Total Bilirubin 0.2, AST 24 D, ALT 17, Alkaline Phosphatase 86, Total Protein 6.0 L, Albumin 3.5, Globulin 2.5, Albumin/Globulin Ratio 1.4 I & O for Labs for Last 24 Hours: Intake & Output 05/02/22 05/03/22 05/04/22 05/05/22 23:59 23:59 23:59 23:59 Intake Total 450 / 450 545 / 545 500 / 500 120 / 120 Output Total 2890 / 2890 4220 / 4220 4075 / 4075 500 / 500 Balance -2440 / -2440 -3675 / -3675 -3575 / -3575 -380 / -380 Weight 238 lb 1.588 oz 238 lb 1.588 oz 235 lb 14.314 oz 219 lb 8 oz Microbiology Reports for the Last 24 Hours: Microbiology 05/03/22 18:41 Nose - Nasal MRSA Culture - Final 05/02/22 10:25 Urine,Catheterized Urine Culture - Preliminary Gram Positive Cocci 05/02/22 13:00 Blood Blood Culture - Preliminary NO GROWTH AFTER 48 HOURS 05/02/22 13:00 Blood Blood Culture - Preliminary NO GROWTH AFTER 48 HOURS Constitutional: Present moderate distress Head: Present normocephalic and atraumatic ENT: Present normal exam and mucous membranes moist Neck: Present normal inspection and trachea midline Respiratory: Present respiratory distress and able to speak in complete sentences; Absent rales or wheezes Cardiac: Present S1/S2, Tachycardia and radial pulses present GI: Present soft and distention; Absent tenderness or guarding Rectal (female): Present deferred (female): Present deferred Skin: Present intact; Absent cyanosis or jaundice Neuro: Present alert, awake and oriented x 3 Extremities: Present normal inspection; Absent clubbing or cyanosis Psychiatric: Present normal affect and cooperative Assessment and Plan *Assessment and plan (1) Acute hypercapnic respiratory failure: Status: Acute Category: Medical Code(s): J96.02 - Acute respiratory failure with hypercapnia (2) Hospital-acquired pneumonia: Status: Acute Category: Medical Code(s): J18.9 - Pneumonia, unspecified organism; Y95 - Nosocomial con
--- NOTE | 2022-05-05 10:24 | XR_ITS ---
FINAL REPORT CLINICAL HISTORY: SOB COMPARISON: 05/03/2022 FINDINGS: SINGLE-VIEW CHEST The heart size is normal. The mediastinum is normal. Left PICC line tip terminates in the region of the left brachiocephalic vein. There are mild bibasilar opacities, may represent atelectasis or pneumonia. There is no pneumothorax. IMPRESSION: Mild bibasilar atelectasis or pneumonia. Reviewed, Interpreted and Dictated by Maikel Santana III, MD Transcribed by Nancy Barnes Authenticated and [facility]
--- NOTE | 2022-05-05 11:51 | DIET.NUTRFU ---
RD rounded with provider today, patient was off BiPap and consumed 25% of breakfast, currently on diabetic diet. Changed to soft diet d/t poor teeth condition. Normally has pretty good appetite, will monitor need for supplements. Urine output good- lasix continues, no BM noted. K depleted KCL ordered.
--- NOTE | 2022-05-05 14:49 | EXP.PHA.PN ---
Subjective *Date: 05/05/22 *Time: 14:49 Medical Exam Vital signs and Labs for Last 24 Hours: Vital Signs Temp Pulse Pulse Resp BP Pulse Ox FiO2 05/05/22 11:24 98.2 F 58 L 17 169/82 H 96 05/05/22 11:00 54 L 05/05/22 11:00 57 L 05/05/22 11:00 97 05/05/22 07:26 98.1 F 67 16 123/71 99 05/05/22 06:30 63 05/05/22 06:30 60 05/05/22 06:30 98 05/05/22 04:00 62 05/04/22 20:00 70 05/05/22 03:50 99.0 F 62 20 125/87 100 05/05/22 02:30 30 05/04/22 23:25 30 05/05/22 02:30 82 05/05/22 02:30 79 05/05/22 00:00 70 05/05/22 00:00 99.1 F 81 18 157/78 H 98 05/04/22 22:00 81 20 146/79 H 94 L 05/04/22 20:00 98.3 F 74 20 141/72 H 94 L 05/04/22 21:39 86 05/04/22 21:39 84 05/04/22 16:00 87 23 168/86 H 96 05/04/22 18:00 91 H 23 156/94 H 97 05/04/22 18:00 78 05/04/22 18:00 76 05/04/22 16:00 87 05/04/22 15:54 97.7 F Intake and Output 05/04/22 05/05/22 05/05/22 23:59 07:59 15:59 Intake Total 60 / 500 240 / 240 Output Total 1000 / 4075 500 / 2400 1900 / 2400 Balance -940 / -3575 -500 / -2160 -1660 / -2160 Intake: Intake, Oral Amount 60 / 60 240 / 240 Output: Output, Urine Amount 1000 / 1675 500 / 2400 1900 / 2400 Other: Number of Unmeasured Voids 0 0 0 Weight 99.564 kg 99.564 kg Patient Weight 05/05/22 23:59 Weight 99.564 kg Laboratory Results - last 24 hr 05/02/22 10:25: Urine Color Yellow, Urine Appearance Cloudy, Urine pH 6.0, Ur Specific [place] 1.015, Urine Protein Negative, Urine Glucose (UA) Negative, Urine Ketones Negative, Urine Blood Negative, Urine Nitrate Positive, Urine Bilirubin Negative, Urine Urobilinogen 0.2, Ur Leukocyte Esterase 2+ A, Urine RBC None, Urine WBC Tntc, Ur Squamous Epith Cells 3-5, Urine Bacteria 3+, WBC Casts Occasional 05/04/22 06:51: POC Glucose 138 H 05/04/22 16:43: POC Glucose 129 H 05/04/22 18:57: Specimen Source Right radial, O2 % 3l, ABG pH 7.48 H, ABG pCO2 48.6 H, ABG pO2 89.1, ABG HCO3 35.7 H, ABG Total CO2 37.2 H, ABG O2 Saturation 97, ABG Base Excess 12.3 H, Victor Manuel Test Acceptable 05/04/22 19:58: Vancomycin Trough 17.2 H 05/04/22 20:18: POC Glucose 177 H 05/05/22 01:05: Vancomycin Peak 31.2 05/05/22 05:49: POC Glucose 95 05/05/22 07:30: WBC 7.8 D, RBC 3.41 L, Hgb 10.7 L, Hct 31.8 L, MCV 93.3, MCH 31.5 H, MCHC 33.8, RDW 13.2, Plt Count 272, MPV 7.9, Neut % (Auto) 64.6, Lymph % (Auto) 25.4, [place] % (Auto) 8.9, Eos % (Auto) 0.6, Baso % (Auto) 0.5, Neut # (Auto) 5.0, Lymph # (Auto) 2.0, [place] # (Auto) 0.7, Eos # (Auto) 0.0, Baso # (Auto) 0.0 05/05/22 07:30: Sodium 137, Potassium 2.8 L* D, Chloride 92 L, Carbon Dioxide 38 H, Anion Gap 9.8, BUN 21 H D, Creatinine 0.80, Estimated Creat Clear 91, Estimated GFR 72, Est GFR ( Amer) 88, Glucose 85 D, Calcium 10.0, Total Bilirubin 0.2, AST 24 D, ALT 17, Alkaline Phosphatase 86, Total Protein 6.0 L, Albumin 3.5, Globulin 2.5, Albumin/Globulin Ratio 1.4 I & O for Labs for Last 24 Hours: Intake & Output 05/02/22 05/03/22 05/04/22 05/05/22 23:59 23:59 23:59 23:59 Intake Total 450 / 450 545 / 545 500 / 500 240 / 240 Output Total 2890 / 2890 4220 / 4220 4075 / 4075 2400 / 2400 Balance -2440 / -2440 -3675 / -3675 -3575 / -3575 -2160 / -2160 Weight 108 kg 108 kg 107 kg 99.564 kg Microbiology Reports for the Last 24 Hours: Microbiology 05/03/22 18:41 Nose - Nasal MRSA Culture - Final 05/02/22 10:25 Urine,Catheterized Urine Culture - Preliminary Gram Positive Cocci 05/02/22 13:00 Blood Blood Culture - Preliminary NO GROWTH AFTER 48 HOURS 05/02/22 13:00 Blood Blood Culture - Preliminary NO GROWTH AFTER 48 HOURS The patient's infection will respond to the chosen ABx?: Yes (ARF, BLOOD CX NO GROWTH, URINE CX GPC W/ID AND SENS
--- NOTE | 2022-05-05 15:33 | PC.NURSE ---
hanging meropenem first before vancomycin which takes longer
--- NOTE | 2022-05-05 18:08 | EXP.PN ---
Subjective *Date: 05/05/22 *Time: 18:18 Interval history: Patient is somewhat confused this morning, she denies any shortness of breath or pain. She reports missing a friend who was supposed to visit her from [place], a man with long dark hair. She becomes emotional easily, but also easily calms down when the subject is changed. Exam Data for Last 24 hours Vital signs and Labs for Last 24 Hours: Temp Pulse Resp BP Pulse Ox FiO2 98.3 F 46 L 17 162/76 H 97 30 05/05/22 15:06 05/05/22 17:50 05/05/22 15:06 05/05/22 15:06 05/05/22 17:50 05/05/22 02:30 Laboratory Results - last 24 hr 05/02/22 10:25: Urine Color Yellow, Urine Appearance Cloudy, Urine pH 6.0, Ur Specific [place] 1.015, Urine Protein Negative, Urine Glucose (UA) Negative, Urine Ketones Negative, Urine Blood Negative, Urine Nitrate Positive, Urine Bilirubin Negative, Urine Urobilinogen 0.2, Ur Leukocyte Esterase 2+ A, Urine RBC None, Urine WBC Tntc, Ur Squamous Epith Cells 3-5, Urine Bacteria 3+, WBC Casts Occasional 05/04/22 06:51: POC Glucose 138 H 05/04/22 18:57: Specimen Source Right radial, O2 % 3l, ABG pH 7.48 H, ABG pCO2 48.6 H, ABG pO2 89.1, ABG HCO3 35.7 H, ABG Total CO2 37.2 H, ABG O2 Saturation 97, ABG Base Excess 12.3 H, Victor Manuel Test Acceptable 05/04/22 19:58: Vancomycin Trough 17.2 H 05/04/22 20:18: POC Glucose 177 H 05/05/22 01:05: Vancomycin Peak 31.2 05/05/22 05:49: POC Glucose 95 05/05/22 07:30: WBC 7.8 D, RBC 3.41 L, Hgb 10.7 L, Hct 31.8 L, MCV 93.3, MCH 31.5 H, MCHC 33.8, RDW 13.2, Plt Count 272, MPV 7.9, Neut % (Auto) 64.6, Lymph % (Auto) 25.4, [place] % (Auto) 8.9, Eos % (Auto) 0.6, Baso % (Auto) 0.5, Neut # (Auto) 5.0, Lymph # (Auto) 2.0, [place] # (Auto) 0.7, Eos # (Auto) 0.0, Baso # (Auto) 0.0 05/05/22 07:30: Sodium 137, Potassium 2.8 L* D, Chloride 92 L, Carbon Dioxide 38 H, Anion Gap 9.8, BUN 21 H D, Creatinine 0.80, Estimated Creat Clear 91, Estimated GFR 72, Est GFR ( Amer) 88, Glucose 85 D, Calcium 10.0, Total Bilirubin 0.2, AST 24 D, ALT 17, Alkaline Phosphatase 86, Total Protein 6.0 L, Albumin 3.5, Globulin 2.5, Albumin/Globulin Ratio 1.4 I & O for Last 24 hours: Intake & Output 05/02/22 05/03/22 05/04/22 05/05/22 23:59 23:59 23:59 23:59 Intake Total 450 / 450 545 / 545 500 / 500 360 / 360 Output Total 2890 / 2890 4220 / 4220 4075 / 4075 2500 / 2500 Balance -2440 / -2440 -3675 / -3675 -3575 / -3575 -2140 / -2140 Weight 108 kg 108 kg 107 kg 99.564 kg Microbiology Reports for the Last 24 Hours: Microbiology 05/03/22 18:41 Nose - Nasal MRSA Culture - Final 05/02/22 10:25 Urine,Catheterized Urine Culture - Preliminary Gram Positive Cocci 05/02/22 13:00 Blood Blood Culture - Preliminary NO GROWTH AFTER 48 HOURS 05/02/22 13:00 Blood Blood Culture - Preliminary NO GROWTH AFTER 48 HOURS Constitutional Constitutional: no acute distress, morbidly obese, chronically ill appearing and cooperative *Routine HEENT Exam Head: Present normocephalic and atraumatic Eye: Present EOMI and PERRL ENT: Present mucous membranes moist; Absent dentition normal *Routine Neck Exam Neck: Present supple; Absent lymphadenopathy *Routine Respiratory Exam Respiratory: Present crackles (Diffusely) and diminished air movement; Absent accessory muscle use, rhonchi or wheezes *Routine Cardiovascular Exam Cardiovascular: Present RRR; Absent murmur *Routine Abdominal Exam Abdominal: Present soft and normoactive bowel sounds; Absent tenderness, distended, rebound or guarding *Routine Rectal Exam Patient deferred: visual exam *Routine Exam Patient deferred: external exam *Routine Extremities Exam Extremities: Present edema (non-pittng lymphedema); Absent cyanosis or clubbing *Routine Skin Exam Skin: Present warm; Absent rash *Routine Neurological Exam Neurological: Present alert, CN II-XII intact, altered mental status and normal tone; Absent oriented X
[2022-05-06] VITALS (8 sets, daily range): BP systolic 121–148; BP diastolic 66–78; PULSE 41–59; RESP 16–20; TEMP 36.4–36.8; O2SAT 92–95; BMI 36.6
--- NOTE | 2022-05-06 02:09 | PC.NURSE ---
Santiago. REPORTS PATIENT REFUSING NEBS. REFUSING BIPAP.
--- NOTE | 2022-05-06 05:11 | PC.NURSE ---
PATIENT REMAINS VERY STUBBORN AND UNCOOPERATIVE WITH BIPAP AND NEBS. STILL NEED A SPUTUM SPECIMEN. NO COUGH NOTED. LUNGD DIMINISHED.TELEMONITORING DEMONSTRATES SB/BBB.
[2022-05-06 06:03] LABS: POC Glucose,Bedside 113 (70-110)
[2022-05-06 07:06] LABS: Basophils % 0.4 % (0.1-2.0); Eosinophils % 0.7 % (0.1-12.0); Hematocrit 34.7 % (37.0-47.0); Hemoglobin 11.3 g/dL (12.2-16.2); Lymphocytes # 1.4 K/mm3 (0.7-4.5); Lymphocytes % 25.6 % (10-50); Mean Corpuscular HGB Conc 32.5 g/dL (31.8-35.4); Mean Corpuscular Hemoglobin 30.5 pg (27.0-31.2); Mean Corpuscular Volume 93.9 fl (81-99); Monocytes # 0.3 K/mm3 (0.1-1.0); Monocytes % 4.7 % (1.7-9.3); Neutrophils # 3.8 K/mm3 (1.8-7.8); Neutrophils % 68.6 % (37.0-80.0); Platelet Count 268 K/mm3 (142-424); Red Blood Count 3.69 M/mm3 (4.20-5.40); Red Cell Distribution Width 13.1 % (11.5-17.5); White Blood Count 5.6 K/mm3 (4.8-10.8)
[2022-05-06 07:17] LABS: Chloride 94 mmol/L (98-107); Sodium 139 mmol/L (136-145)
[2022-05-06 07:18] LABS: Potassium 3.4 mmoL/L (3.5-5.1)
[2022-05-06 07:20] LABS: Alanine Aminotransferase 22 U/L (12-78); Albumin Level 3.7 g/dl (3.5-5.0); Albumin/Globulin Ratio 1.4 (1.1-1.8); Alkaline Phosphatase 78 U/L (38-126); Anion Gap 9.4 mEq/L (5-15); Aspartate Amino Transferase 27 U/L (14-36); Bilirubin,Total 0.2 mg/dl (0.2-1.3); Blood Urea Nitrogen 25 mg/dl (7-17); Carbon Dioxide 39 mmol/L (22.0-30.0); Creatinine Clearance Estimated 88 mL/min (50-200); Estimated Glomerular Filt Rate 85 ml/min (>60); GFR (African American) 102 ML/MIN (>60); Globulin 2.6 g/dL (1.3-3.2); Total Protein,Serum 6.3 g/dl (6.3-8.2)
[2022-05-06 07:21] LABS: Calcium 9.8 mg/dl (8.4-10.2); Glucose 108 mg/dl (74-100)
[2022-05-06 08:17] LABS: POC Glucose,Bedside 136 (70-110)
--- NOTE | 2022-05-06 11:11 | EXP.PULM.PN ---
Subjective *Date: 05/06/22 *Time: 13:33 Interval history: No acute respiratory vents overnight patient admits continued improvement in her respiratory symptoms. Pulmonology Exam Inpatient Vital signs and Labs for Last 24 Hours: Temp Pulse Resp BP Pulse Ox FiO2 98.2 F 56 L 20 121/66 94 L 30 05/06/22 08:00 05/06/22 10:30 05/06/22 08:00 05/06/22 08:00 05/06/22 10:30 05/05/22 02:30 Laboratory Results - last 24 hr 05/05/22 12:19: POC Glucose 136 H 05/06/22 05:52: POC Glucose 113 H 05/06/22 06:45: WBC 5.6 D, RBC 3.69 L, Hgb 11.3 L, Hct 34.7 L, MCV 93.9, MCH 30.5, MCHC 32.5, RDW 13.1, Plt Count 268, MPV 8.0, Neut % (Auto) 68.6, Lymph % (Auto) 25.6, [place] % (Auto) 4.7, Eos % (Auto) 0.7, Baso % (Auto) 0.4, Neut # (Auto) 3.8, Lymph # (Auto) 1.4, [place] # (Auto) 0.3, Eos # (Auto) 0.0, Baso # (Auto) 0.0 05/06/22 06:45: Sodium 139, Potassium 3.4 L D, Chloride 94 L, Carbon Dioxide 39 H, Anion Gap 9.4, BUN 25 H, Creatinine 0.70, Estimated Creat Clear 88, Estimated GFR 85, Est GFR ( Amer) 102, Glucose 108 H D, Calcium 9.8, Total Bilirubin 0.2, AST 27, ALT 22 D, Alkaline Phosphatase 78, Total Protein 6.3, Albumin 3.7, Globulin 2.6, Albumin/Globulin Ratio 1.4 I & O for Labs for Last 24 Hours: Intake & Output 05/03/22 05/04/22 05/05/22 05/06/22 23:59 23:59 23:59 23:59 Intake Total 545 / 545 500 / 500 360 / 480 360 / 360 Output Total 4220 / 4220 4075 / 4075 3300 / 3300 600 / 600 Balance -3675 / -3675 -3575 / -3575 -2940 / -2820 -240 / -240 Weight 238 lb 1.588 oz 235 lb 14.314 oz 219 lb 8 oz 214 lb 7 oz Microbiology Reports for the Last 24 Hours: Microbiology 05/02/22 10:25 Urine,Catheterized Urine Culture - Final Staphylococcus lugdunensis 05/03/22 18:41 Nose - Nasal MRSA Culture - Final Constitutional: Present mild distress Head: Present normocephalic and atraumatic ENT: Present normal exam and mucous membranes moist Neck: Present normal inspection and trachea midline Respiratory: Present respiratory distress and able to speak in complete sentences; Absent rales or wheezes Cardiac: Present S1/S2, Tachycardia and radial pulses present GI: Present soft and distention; Absent tenderness or guarding Rectal (female): Present deferred (female): Present deferred Skin: Present intact; Absent cyanosis or jaundice Neuro: Present alert, awake and oriented x 3 Extremities: Present normal inspection; Absent clubbing or cyanosis Psychiatric: Present normal affect and cooperative Assessment and Plan *Assessment and plan (1) Acute hypercapnic respiratory failure: Status: Acute Category: Medical Code(s): J96.02 - Acute respiratory failure with hypercapnia (2) Hospital-acquired pneumonia: Status: Acute Category: Medical Code(s): J18.9 - Pneumonia, unspecified organism; Y95 - Nosocomial condition Plan #Acute hypercarbic respiratory failure: #Hospital-acquired pneumonia: #History of MRSA pneumonia: Ms. Molina is a 62-year-old female following in pulmonary clinic for pulmonary nodule and asthma admitted to the hospital on 04/27/2022 complaining of abdominal and chest pain managed for pancreatitis discharged home presented to the hospital again with worsening mentation, found to be in hypercarbic respiratory failure with admission ABG showed severe hypercarbic respiratory failure with a pH of 7.15 and PCO2 of 87 initiated on NIV and eventually pulmonary was called today for further evaluation and management. Patient admission was also found to be hypothermic met sepsis criteria and was initiated on broad-spectrum antibiotics. Patient has been receiving her inhalers throughout her hospital stay along with DuoNebs every 6 hours scheduled. She was also initiated on vancomycin and meropenem on this admission. CT chest from 04/27 did not show any dense consolidation. Chest x-ray on this admission showed right lower lobe airspace disease. Prior history of MRSA pneumonia
--- NOTE | 2022-05-06 12:55 | EXP.DC.SUM ---
General Admission date:: 05/02/22 Discharge date: 05/06/22 HPI HPI HPI: Ms. Molina is a 62-year-old female with history of hypertension, hyperlipidemia, COPD, LANCE, seizure disorder and diabetes who presented to the ER with altered mental status. She was just admitted for pancreatitis and stable on room air at discharge back to her nursing facility. She presents today via EMS because she was found at her nursing facility altered and having a difficult time breathing. She did not wear her CPAP at her facility last night. Is a 62-year-old female with history of hypertension, hyperlipidemia, COPD, seizure disorder, diabetes, presenting with altered mental status.? Per EMS, patient was found at nursing facility with altered mental status.? 1 day prior to arrival, patient was altered, confused, but still conversational.? Today, she was found to be altered and gurgling on her respirations and secretions.? EMS was immediately called.? On EMS arrival, patient was saturating in the 70% range and minimally responsive.? Placed on nonrebreather with response of oxygen to the mid 90s.? Given DuoNeb given wheezing and also responded to that.? Hemodynamically stable otherwise.? Other history unable to be obtained secondary to mental status Hospital Course Hospital Course Hospital Course: Ms. Molina is a 62-year-old female with history of hypertension, hyperlipidemia, COPD, LANCE, seizure disorder and diabetes who was admitted here on 05/02 for altered mental status and respiraotry distress. Pt was admitted here from 04/27 - 04/29 for pancreatitis and she was stable on room air on day of discharge. She returned to [facility] from 04/29 - 05/02. Apparently she did not wear her CPAP at her facility the night prior to re-admission. On arrival patient met sepsis criteria with hypothermia and leukocytosis as well as UA concerning for urinary tract infection. Patient was placed on BiPAP, vancomycin, and meropenem. ABGs showed continued improvement and hypercapnia and acidosis, and patient's mental status gradually improved as well. Patient appeared to be volume overloaded as chest x-ray showed pulmonary congestion and BNP was more elevated than usual for her at 3,340. Patient was given Lasix 40 mg IV twice daily. Patient was transition from BiPAP to nasal cannula on 05/04. Sputum culture previously had been positive for staph aureus, and MRSA screen during this admission was positive for MRSA. Antibiotics were weaned from vancomycin and meropenem to linezolid per pulmonology recommendation. Patient's urine culture did grow a staph species with limited sensitivities, however this does appear to be sensitive to linezolid as well. On 05/05 Lasix was decreased to 20 mg IV twice daily. Some of patient's psych meds were held on admission given her altered mental status, as her mentation and level of alertness improved, her venlafaxine, Depakote, and Seroquel were restarted with no adverse effect. Patient will be discharged back to [facility], she can continue linezolid 600 mg p.o. twice daily for 7 more days. Continue CPAP usage every night until her BiPAP arrives. Continue supplemental oxygen at 3 L by nasal cannula to maintain sats greater than 90%. Exam Data for Last 24 hours Vital signs and Labs for Last 24 Hours: Temp Pulse Resp BP Pulse Ox FiO2 98.2 F 56 L 20 121/66 94 L 30 05/06/22 08:00 05/06/22 10:30 05/06/22 08:00 05/06/22 08:00 05/06/22 10:30 05/05/22 02:30 Laboratory Results - last 24 hr 05/05/22 12:19: POC Glucose 136 H 05/06/22 05:52: POC Glucose 113 H 05/06/22 06:45: WBC 5.6 D, RBC 3.69 L, Hgb 11.3 L, Hct 34.7 L, MCV 93.9, MCH 30.5, MCHC 32.5, RDW 13.1, Plt Count 268, MPV 8.0, Neut % (Auto) 68.6, Lymph % (Auto) 25.6, [place] % (Auto) 4.7, Eos % (Auto) 0.7, Baso % (Auto) 0.4, Neut # (Auto) 3.8, Lymph # (Auto) 1.4, [place] # (Auto) 0.3, Eos # (Auto) 0.0, Baso # (Auto) 0.0 05/06/22 06:45: Sodium 139, Potassium 3.4 L D, Chloride 9
--- NOTE | 2022-05-10 14:46 | CARE MANAGER ---
Spoke with Josefina at [place], regarding patient for post-discharge follow-up interview.
== END 2022-05-06 16:45 | DRG 871 ==
LOC: ER 11:55 → 2ND 13:42 → ER 18:42 → 2ND 18:42
PROVIDERS: Internal Medicine Pulmonary Disease; Nurse Practitioner Family; Admitting Provider Internal Medicine Adolescent Medicine; Emergency Provider Emergency Medicine; Visit Provider Emergency Medicine
DX: A41.9 Sepsis, unspecified organism (principal); J18.9 Pneumonia, unspecified organism; J96.01 Acute respiratory failure with hypoxia; J96.02 Acute respiratory failure with hypercapnia; N39.0 Urinary tract infection, site not specified; I50.30 Unspecified diastolic (congestive) heart failure; J44.0 Chronic obstructive pulmonary disease with (acute) lower respiratory infection; E78.5 Hyperlipidemia, unspecified; G40.909 Epilepsy, unspecified, not intractable, without status epilepticus; K21.9 Gastro-esophageal reflux disease without esophagitis; F31.9 Bipolar disorder, unspecified; G47.33 Obstructive sleep apnea (adult) (pediatric); R68.0 Hypothermia, not associated with low environmental temperature; I11.0 Hypertensive heart disease with heart failure; Y95 Nosocomial condition; E11.622 Type 2 diabetes mellitus with other skin ulcer
CPT/HCPCS: 36410; 36415; 36569; 51702; 70450; 71045; 80053; 80202; 80305; 81001; 82803; 82962; 83605; 83690; 83735; 83880; 84484; 85007; 85025; 85378; 87040; 87081; 87086; 87088; 87186; 93005; 93306; 94640; 94660; 94760; 99291; C1751; C9803; G0378; J2020; J2185; J2405; J3475; U0003; U0005

== ENCOUNTER → 2022-05-17 16:13 | Outpatient (CLI) | payer MEDICARE, MEDICAID, SELFPAY ==
[2022-05-17 19:10] LABS: Basophils % 0.6 % (0.1-2.0); Eosinophils # 0.2 K/mm3 (0.0-0.4); Eosinophils % 3.2 % (0.1-12.0); Hematocrit 31.7 % (37.0-47.0); Hemoglobin 10.3 g/dL (12.2-16.2); Lymphocytes # 1.4 K/mm3 (0.7-4.5); Lymphocytes % 22.7 % (10-50); Mean Corpuscular HGB Conc 32.5 g/dL (31.8-35.4); Mean Corpuscular Volume 98.4 fl (81-99); Mean Platelet Volume 8.2 fl (7.4-10.4); Monocytes # 0.4 K/mm3 (0.1-1.0); Monocytes % 6.8 % (1.7-9.3); Neutrophils % 66.6 % (37.0-80.0); Platelet Count 405 K/mm3 (142-424); Red Blood Count 3.22 M/mm3 (4.20-5.40); Red Cell Distribution Width 13.5 % (11.5-17.5)
== END ==
PROVIDERS: PCP Emergency Medicine; Visit Provider Emergency Medicine
DX: Z79.899 Other long term (current) drug therapy (principal)
CPT/HCPCS: 85025

== ENCOUNTER 2022-05-26 09:05 | Emergency (ER) | payer MEDICARE, MEDICAID, SELFPAY ==
[2022-05-26] VITALS (11 sets, daily range): BP systolic 91–129; BP diastolic 57–86; PULSE 64–96; RESP 20; TEMP 36.9; O2SAT 94–100; BMI 45.6
--- NOTE | 2022-05-26 09:19 | XR_ITS ---
FINAL REPORT CLINICAL HISTORY: SOA FINDINGS: SINGLE-VIEW CHEST The heart size is normal. The mediastinum is normal. There are bibasilar pulmonary opacities worrisome for pneumonia. There is no pneumothorax. IMPRESSION: Findings worrisome for bibasilar pneumonia. Reviewed, Interpreted and Dictated by Maikel Santana III, MD Transcribed by Nancy Barnes Authenticated and . [facility]
--- NOTE | 2022-05-26 09:28 | PC.NURSE ---
Called Respiratory for ABG
[2022-05-26 09:35] LABS: ABG Base Excess 1.9 mmol/L (-2.4-2.3); ABG HCO3 27.8 mmhg (22.0-26.0); ABG Oxygen Saturation 97 % (90-100); ABG PH 7.33 mmol/L (7.35-7.45); ABG PO2 96.7 mmhg (80-100); ABG TCO2 29.5 mmhg (23-27)
[2022-05-26 09:36] LABS: Allen's Test acceptable; Source Left Radial
--- NOTE | 2022-05-26 09:36 | HMH.EDGENADL ---
Discharge Plan Disposition Patient Disposition: Home Health Service Condition: Fair Chief Complaint: Recheck/Abnormal Lab/Rx Prescriptions Prescriptions: No Action potassium chloride 20 mEq tablet,ER particles/crystals 20 meq PO DAILY artifi.tears(hypromellose)(PF) 0.3 % drops 1 drp OPHTHALMIC Q4-6H PRN (Reason: .) azelastine 137 mcg (0.1 %) aerosol,spray 1 spray NS BID budesonide-formoterol [Symbicort] 160-4.5 mcg/actuation HFA aerosol inhaler 1 inh inhalation BID venlafaxine 75 mg tablet extended release 24hr 150 mg PO DAILY diazepam [Valium] 5 mg tablet 5 mg PO TID Qty: 77 0RF Rx Instructions: 5mg TID x 3 weeks then 5mg BID gabapentin 300 mg capsule 300 mg PO TID Qty: 90 5RF meclizine 12.5 MG tablet 12.5 mg PO BIDP PRN (Reason: Dizziness) polyethylene glycol 3350 17 GM powder in packet 17 gm PO DAILY montelukast 10 MG tablet 10 mg PO PM albuterol sulfate 8.5 GM HFA aerosol inhaler 2 inh IH Q6HP PRN (Reason: shortness of breath or wheezing) terazosin 10 MG capsule 10 mg PO HS ipratropium-albuterol 3 ML solution for nebulization 3 ml IH Q4HP PRN (Reason: Wheezing) bisacodyl 10 MG suppository 10 mg RC DAILYP PRN (Reason: Constipation) lactulose 20 GM/30 ML solution 30 gm PO DAILYP PRN (Reason: Constipation) phenazopyridine 95 MG tablet 190 mg PO TIDP PRN (Reason: Urinary symptoms) divalproex [Depakote] 500 mg Tablet,Delayed Release (Dr/Ec) 500 mg PO BID Linzess 290 mcg Capsule 290 mcg PO HS cranberry extract 425 mg Capsule 850 mg PO DAILY quetiapine 200 mg tablet 200 mg PO HS Label Comments: 200 mg Oral at Bedtime cholecalciferol (vitamin D3) 125 mcg (5,000 unit) Tablet 125 mcg PO DAILY bethanechol chloride 25 MG tablet 25 mg PO QID 30 Days Qty: 0 0RF sucralfate 1 GM/10 ML suspension 10 ml PO BID ondansetron HCl 4 MG tablet 4 mg PO TIDP PRN (Reason: Nausea) acetaminophen 500 MG tablet 500 mg PO Q6HP PRN (Reason: Pain) ferrous sulfate 325 MG tablet 325 mg PO TID omeprazole 20 MG tablet,delayed release (DR/EC) 20 mg PO DAILY fluticasone propionate 120 SPR/BOT bottle 2 spr NS DAILY fludrocortisone 0.1 MG tablet 0.1 mg PO DAILY omega-3 acid ethyl esters 1 GM capsule 2 gm PO BID magnesium hydroxide 30 ML suspension 30 ml PO DAILYP PRN (Reason: BOWELS) quetiapine 100 mg tablet 100 mg PO HS ipratropium-albuterol 0.5 mg-3 mg(2.5 mg base)/3 mL Solution For Nebulization 3 ml inhalation Q6RT Qty: 180 0RF potassium chloride 20 mEq Tablet,Er Particles/Crystals 20 meq PO DAILY Qty: 14 0RF budesonide [Pulmicort] 0.5 mg/2 mL Suspension For Nebulization 0.5 mg inhalation BIDRT Qty: 60 0RF linezolid 600 mg tablet 600 mg PO BID 7 Days Qty: 14 0RF furosemide [Lasix] 20 mg tablet 20 mg PO DAILY Qty: 30 0RF prednisone 20 mg tablet 20 mg PO DAILY 4 Days Qty: 4 0RF Activity Restrictions/Add. Instructions Additional Instructions/Restrictions: Follow-up with your primary care provider regarding this visit to the emergency department and working on weight management strategies. In order to decrease risk of hypoventilation, altered mental status and sleepiness, be sure to stay upright as often as possible, including when you are on your breathing machine. If you have any other concerns, return to the ED for further evaluation. Continue taking ceftriaxone to treat your UTI. Clinical Impressions Clinical Impression: Morbid obesity with alveolar hypoventilation Discharge ED Provider: Dav Gee General Adult HPI General Chief complaint: Recheck/Abnormal Lab/Rx Stated complaint: low O2 sat Time Seen by Provider: 05/26/22 09:17 Mode of Arrival: EMS Source of Information: Patient Limitations: No Limitations Description of Symptoms (Recalled from ER Triage Doc. by
[2022-05-26 09:38] LABS: ABG PCO2 54.1 mmhg (35.0-45.0)
--- NOTE | 2022-05-26 09:38 | PC.NURSE ---
G called to Nandini RN, aware via nurse
[2022-05-26 11:13] LABS: Lactic Acid 1.1 mmol/L (0.7-2.1)
[2022-05-26 11:39] LABS: Chloride 100 mmol/L (98-107); Sodium 140 mmol/L (136-145)
[2022-05-26 11:40] LABS: Potassium 3.8 mmoL/L (3.5-5.1)
[2022-05-26 11:41] LABS: Basophils # 0.1 K/mm3 (0-0.2); Basophils % 0.7 % (0.1-2.0); Eosinophils # 0.1 K/mm3 (0.0-0.4); Eosinophils % 1.1 % (0.1-12.0); Hematocrit 35.7 % (37.0-47.0); Hemoglobin 11.3 g/dL (12.2-16.2); Lymphocytes # 1.1 K/mm3 (0.7-4.5); Lymphocytes % 14.7 % (10-50); Mean Corpuscular HGB Conc 31.7 g/dL (31.8-35.4); Mean Corpuscular Hemoglobin 31.7 pg (27.0-31.2); Mean Corpuscular Volume 99.9 fl (81-99); Mean Platelet Volume 7.4 fl (7.4-10.4); Monocytes # 0.6 K/mm3 (0.1-1.0); Neutrophils # 5.3 K/mm3 (1.8-7.8); Neutrophils % 74.5 % (37.0-80.0); Platelet Count 303 K/mm3 (142-424); Red Blood Count 3.57 M/mm3 (4.20-5.40); Red Cell Distribution Width 14.1 % (11.5-17.5); White Blood Count 7.2 K/mm3 (4.8-10.8)
[2022-05-26 11:43] LABS: Anion Gap 10.8 mEq/L (5-15); Blood Urea Nitrogen 11 mg/dl (7-17); Calcium 9.4 mg/dl (8.4-10.2); Carbon Dioxide 33 mmol/L (22.0-30.0); Creatinine Clearance Estimated 58 mL/min (50-200); Estimated Glomerular Filt Rate 85 ml/min (>60); GFR (African American) 102 ML/MIN (>60); Glucose 115 mg/dl (74-100)
[2022-05-26 11:53] LABS: NT Pro Brain Natriuretic Pep. 488 pg/mL (0-125)
[2022-05-26 12:08] LABS: Troponin I < 0.01 ng/ml (0.00-0.034)
== END 2022-05-26 14:29 | disposition home health service (06) ==
PROVIDERS: Emergency Provider Emergency Medicine
DX: E66.2 Morbid (severe) obesity with alveolar hypoventilation (principal); I50.9 Heart failure, unspecified; J44.9 Chronic obstructive pulmonary disease, unspecified; F41.9 Anxiety disorder, unspecified; K21.9 Gastro-esophageal reflux disease without esophagitis; Z87.19 Personal history of other diseases of the digestive system; Z90.710 Acquired absence of both cervix and uterus; Z82.49 Family history of ischemic heart disease and other diseases of the circulatory system
CPT/HCPCS: 71045; 80048; 82803; 83605; 83880; 84484; 85025; 87040; 96360; 99285

== ENCOUNTER 2022-06-12 03:16 | Emergency (ER) | payer MEDICARE, MEDICAID, SELFPAY ==
--- NOTE | 2022-06-12 03:08 | ECG_ITS ---
APPROVED REPORT Exam: Resting ECG HR:85 bpm ECG Measurements Heart Rate 85 AXES NE 161 P 54 QRSd 113 QRS 28 QT 349 T 63 QTc 392 Conclusion SINUS RHYTHM MODERATE INTRAVENTRICULAR CONDUCTION DELAY [110+ ms QRS DURATION] BORDERLINE ECG UNCONFIRMED REPORT Electronically signed by : Francis Magdaleno MD 06/12/2022 15:13:26
[2022-06-12 03:16] VITALS: BP 150/74; PULSE 86; RESP 17; TEMP 36.7; O2SAT 96; BMI 40.3
--- NOTE | 2022-06-12 03:16 | HMH.EDGENADL ---
Discharge Plan Disposition Patient Disposition: Home, Self-Care Condition: Good Chief Complaint: PAIN Prescriptions Prescriptions: No Action potassium chloride 20 mEq tablet,ER particles/crystals 20 meq PO DAILY artifi.tears(hypromellose)(PF) 0.3 % drops 1 drp OPHTHALMIC Q4-6H PRN (Reason: .) budesonide-formoterol [Symbicort] 160-4.5 mcg/actuation HFA aerosol inhaler 1 inh inhalation BID venlafaxine 75 mg tablet extended release 24hr 150 mg PO DAILY gabapentin 300 mg capsule 300 mg PO TID Qty: 90 5RF meclizine 12.5 MG tablet 12.5 mg PO BIDP PRN (Reason: Dizziness) polyethylene glycol 3350 17 GM powder in packet 17 gm PO DAILY montelukast 10 MG tablet 10 mg PO PM albuterol sulfate 8.5 GM HFA aerosol inhaler 2 inh IH Q6HP PRN (Reason: shortness of breath or wheezing) terazosin 10 MG capsule 10 mg PO HS bisacodyl 10 MG suppository 10 mg RC DAILYP PRN (Reason: Constipation) lactulose 20 GM/30 ML solution 30 gm PO DAILYP PRN (Reason: Constipation) phenazopyridine 95 MG tablet 190 mg PO TIDP PRN (Reason: Urinary symptoms) divalproex [Depakote] 500 mg Tablet,Delayed Release (Dr/Ec) 500 mg PO BID Linzess 290 mcg Capsule 290 mcg PO HS cranberry extract 425 mg Capsule 850 mg PO DAILY cholecalciferol (vitamin D3) 125 mcg (5,000 unit) Tablet 125 mcg PO DAILY bethanechol chloride 25 MG tablet 25 mg PO QID 30 Days Qty: 0 0RF sucralfate 1 GM/10 ML suspension 10 ml PO BID ondansetron HCl 4 MG tablet 4 mg PO TIDP PRN (Reason: Nausea) acetaminophen 500 MG tablet 500 mg PO Q6HP PRN (Reason: Pain) ferrous sulfate 325 MG tablet 325 mg PO TID omeprazole 20 MG tablet,delayed release (DR/EC) 20 mg PO DAILY fluticasone propionate 120 SPR/BOT bottle 2 spr NS DAILY fludrocortisone 0.1 MG tablet 0.1 mg PO DAILY omega-3 acid ethyl esters 1 GM capsule 2 gm PO BID magnesium hydroxide 30 ML suspension 30 ml PO DAILYP PRN (Reason: BOWELS) quetiapine 100 mg tablet 100 mg PO HS linezolid 600 mg tablet 600 mg PO BID 7 Days Qty: 14 0RF ipratropium-albuterol 0.5 mg-3 mg(2.5 mg base)/3 mL solution for nebulization 3 ml inhalation Q6RT furosemide [Lasix] 20 mg tablet 20 mg PO DAILY sulfamethoxazole-trimethoprim 800-160 mg tablet 2 tab PO BID Referrals Follow up/Referrals: Casimiro Barraza MD [Primary Care Provider] - See instructions Clinical Impressions Clinical Impression: Pill esophagitis Instructions Patient Instructions: DI for Esophagitis Discharge ED Provider: Ashok Mercedes General Adult HPI General Chief complaint: PAIN Stated complaint: Chest pain/Trouble swallowing Time Seen by Provider: 06/12/22 03:18 Mode of Arrival: EMS History of Present Illness HPI narrative: 62-year-old female from nursing facility, history of seizure disorder, COPD, type 2 diabetes, chronic respiratory failure due to obesity hypoventilation, CAD, CHF, has implanted defibrillator. She presents tonight, after having taken nighttime medication, states she felt tightness in her throat just did not feel right. She denies any overt chest pain, shortness of breath, nausea, vomiting, diaphoresis or any other symptoms. There are no treatments prior to arrival. She arrives via EMS Related Data Home Medications Medication Instructions Recorded Confirmed acetaminophen 500 mg tablet 500 mg PO Q6HP PRN Pain 04/17/20 06/12/22 ferrous sulfate 325 mg (65 mg 325 mg PO TID Supplement 04/17/20 06/12/22 iron) tablet fludrocortisone 0.1 mg tablet 0.1 mg PO DAILY Adrenal disease 04/17/20 06/12/22 fluticasone propionate 50 2 spr intranasal DAILY Allergy 04/17/20 05/31/22 mcg/actuation nasal symptoms spray,suspension omega-3 acid ethyl esters 1 gram 2 gm PO BID High cholesterol 04/17/20 05/31/22 capsule omeprazole 20 mg tablet,delayed 20 mg P
--- NOTE | 2022-06-12 03:18 | XR_ITS ---
PROCEDURE INFORMATION: Exam: XR Chest Exam date and time: 06/12/2022 3:43 AM Age: 62 years old Clinical indication: Shortness of breath; Additional info: Sob/cp TECHNIQUE: Imaging protocol: Radiologic exam of the chest. Views: 1 view. COMPARISON: CR XR CHEST PORTABLE 05/26/2022 9:44 AM FINDINGS: Limitations: Evaluation mildly limited due to patient body habitus. Lungs: Lungs appear relatively clear, with no consolidation or pulmonary edema. Pleural spaces: Unremarkable. No pleural effusion. No pneumothorax. Heart/Mediastinum: Cardiomediastinal silhouette is stable. Bones/joints: No acute osseous abnormality. IMPRESSION: No acute findings.
[2022-06-12 03:48] LABS: Basophils % 0.8 % (0.1-2.0); Eosinophils # 0.3 K/mm3 (0.0-0.4); Eosinophils % 5.4 % (0.1-12.0); Hemoglobin 9.7 g/dL (12.2-16.2); Lymphocytes # 1.3 K/mm3 (0.7-4.5); Lymphocytes % 22.7 % (10-50); Mean Corpuscular HGB Conc 32.4 g/dL (31.8-35.4); Mean Corpuscular Hemoglobin 30.2 pg (27.0-31.2); Mean Corpuscular Volume 93.3 fl (81-99); Mean Platelet Volume 7.7 fl (7.4-10.4); Monocytes # 0.4 K/mm3 (0.1-1.0); Monocytes % 6.7 % (1.7-9.3); Neutrophils # 3.6 K/mm3 (1.8-7.8); Neutrophils % 64.5 % (37.0-80.0); Platelet Count 554 K/mm3 (142-424); Red Blood Count 3.22 M/mm3 (4.20-5.40); Red Cell Distribution Width 13.8 % (11.5-17.5); White Blood Count 5.6 K/mm3 (4.8-10.8)
[2022-06-12 04:07] LABS: Troponin I < 0.01 ng/ml (0.00-0.034)
[2022-06-12 04:21] LABS: Lipase 72 U/L (23-300)
[2022-06-12 05:15] LABS: Chloride 95 mmol/L (98-107); Potassium 3.8 mmoL/L (3.5-5.1); Sodium 130 mmol/L (136-145)
[2022-06-12 05:17] LABS: Blood Urea Nitrogen 9 mg/dl (7-17); Creatinine Clearance Estimated 103 mL/min (50-200); Estimated Glomerular Filt Rate 72 ml/min (>60); GFR (African American) 88 ML/MIN (>60)
[2022-06-12 05:18] LABS: Alanine Aminotransferase 15 U/L (12-78); Albumin Level 3.4 g/dl (3.5-5.0); Albumin/Globulin Ratio 1.3 (1.1-1.8); Alkaline Phosphatase 55 U/L (38-126); Anion Gap 10.8 mEq/L (5-15); Aspartate Amino Transferase 31 U/L (14-36); Bilirubin,Total 0.2 mg/dl (0.2-1.3); Calcium 9.3 mg/dl (8.4-10.2); Carbon Dioxide 28 mmol/L (22.0-30.0); Globulin 2.7 g/dL (1.3-3.2); Glucose 95 mg/dl (74-100); Total Protein,Serum 6.1 g/dl (6.3-8.2)
[2022-06-12 06:05] VITALS: BP 145/73; PULSE 83; RESP 18; TEMP 36.6; O2SAT 99
--- NOTE | 2022-06-12 06:15 | PC.NURSE ---
Gave report to Daja @ [place]
== END 2022-06-12 06:44 | disposition home or self-care (01) ==
PROVIDERS: Emergency Provider Emergency Medicine; PCP Emergency Medicine
DX: K20.90 Esophagitis, unspecified without bleeding (principal); G40.909 Epilepsy, unspecified, not intractable, without status epilepticus; E11.9 Type 2 diabetes mellitus without complications; J96.00 Acute respiratory failure, unspecified whether with hypoxia or hypercapnia; I25.10 Atherosclerotic heart disease of native coronary artery without angina pectoris; I50.9 Heart failure, unspecified; Z95.810 Presence of automatic (implantable) cardiac defibrillator; D64.9 Anemia, unspecified; F41.9 Anxiety disorder, unspecified; Z85.9 Personal history of malignant neoplasm, unspecified; K21.9 Gastro-esophageal reflux disease without esophagitis; I11.0 Hypertensive heart disease with heart failure; Z90.710 Acquired absence of both cervix and uterus; Z87.19 Personal history of other diseases of the digestive system; Z82.49 Family history of ischemic heart disease and other diseases of the circulatory system; Z87.891 Personal history of nicotine dependence
CPT/HCPCS: 71045; 80053; 83690; 84484; 85025; 93005; 99285

== ENCOUNTER → 2022-08-02 11:54 | Outpatient (CLI) | payer MEDICARE, MEDICAID, SELFPAY | PROVIDERS: PCP Emergency Medicine; Visit Provider Emergency Medicine | DX: L97.429 Non-pressure chronic ulcer of left heel and midfoot with unspecified severity (principal); B96.89 Other specified bacterial agents as the cause of diseases classified elsewhere | CPT/HCPCS: 87070; 87077; 87186; 87205 ==

== ENCOUNTER → 2022-08-30 11:29 | Outpatient (CLI) | payer MEDICARE, MEDICAID, SELFPAY | PROVIDERS: PCP Emergency Medicine; Visit Provider Emergency Medicine | DX: S91.302A Unspecified open wound, left foot, initial encounter (principal); B95.7 Other staphylococcus as the cause of diseases classified elsewhere | CPT/HCPCS: 87070; 87077; 87186; 87205 ==

== ENCOUNTER → 2022-12-13 14:23 | Outpatient (CLI) | payer MEDICARE, MEDICAID, SELFPAY ==
[2022-12-13 15:11] LABS: Strep Scrn Group A (Rapid) Negative (Negative)
== END ==
PROVIDERS: PCP Emergency Medicine; Visit Provider Emergency Medicine
DX: J02.9 Acute pharyngitis, unspecified (principal)
CPT/HCPCS: 87430

== ENCOUNTER → 2022-12-29 12:45 | Outpatient (CLI) | payer MEDICARE, MEDICAID, SELFPAY ==
[2022-12-29 13:12] LABS: ABG Base Excess 2.7 mmol/L (-2.4-2.3); ABG HCO3 28.2 mmhg (22.0-26.0); ABG Oxygen Saturation 95 % (90-100); ABG PH 7.36 mmol/L (7.35-7.45); ABG PO2 76.2 mmhg (80-100); ABG TCO2 29.7 mmhg (23-27)
[2022-12-29 13:13] LABS: Allen's Test acceptable; Oxygen room air %
[2022-12-29 13:14] LABS: ABG PCO2 50.9 mmhg (35.0-45.0)
--- NOTE | 2022-12-29 13:21 | CT_ITS ---
FINAL REPORT TECHNIQUE: Axial images were obtained from the lung apex to the mid abdomen by computed tomography. Coronal reformatted images were obtained. This study was performed with techniques to keep radiation doses as low as reasonably achievable, (ALARA). Individualized dose reduction techniques using automated exposure control or adjustment of mA and/or kV according to the patient''s size were employed. CLINICAL HISTORY: Lung nodule follow-up COMPARISON: 04/27/2022 FINDINGS: There is no axillary adenopathy. There are multiple borderline in size mediastinal nodes again noted. There is mild scarring present bilaterally. The 7 mm inferior lingular nodule noted on the prior CT examination is stable. There is a new 17 mm nodular opacity along the major fissure in the right lower lobe, best seen on sagittal image #33, worse than seen on the prior CT. There are other small nodular opacities which are stable. Heart size is normal. There is no pericardial or pleural effusion. A small hiatal hernia is present. The gallbladder has been surgically removed. IMPRESSION: 7 mm lingular nodule, stable since the prior CT. 17 mm nodular opacity along the major fissure in the right lower lobe, nonspecific, would favor inflammatory although other etiologies cannot be excluded. Would recommend 6-month follow-up CT for further evaluation. Reviewed, Interpreted and Dictated by Maikel Santana III, MD Transcribed by Rekha Shukla Authenticated and [facility]
== END ==
PROVIDERS: PCP Emergency Medicine; Visit Provider Internal Medicine Pulmonary Disease
DX: J44.9 Chronic obstructive pulmonary disease, unspecified (principal); R91.8 Other nonspecific abnormal finding of lung field; R06.09 Other forms of dyspnea
CPT/HCPCS: 71250; 82803

== ENCOUNTER 2023-01-11 16:24 | Emergency (ER) | payer MEDICARE, MEDICAID, SELFPAY ==
[2023-01-11] VITALS (7 sets, daily range): BP systolic 135–150; BP diastolic 67–76; PULSE 56–74; RESP 16–18; TEMP 36.3–36.6; O2SAT 95–100; BMI 39.2
--- NOTE | 2023-01-11 16:53 | HMH.EDGENADL ---
Discharge Plan Disposition Patient Disposition: Home Health Service Condition: Good Prescriptions Prescriptions: No Action potassium chloride 20 mEq tablet,ER particles/crystals 20 meq PO DAILY artifi.tears(hypromellose)(PF) 0.3 % drops 1 drp OPHTHALMIC Q4-6H PRN (Reason: .) estradiol [Estrace] 0.01 % (0.1 mg/gram) cream 1 g vaginal QHS 14 Days Qty: 42.5 8RF Rx Instructions: 1 gram at night for 14 days and then twice weekly from then on budesonide-formoterol [Symbicort] 160-4.5 mcg/actuation HFA aerosol inhaler 1 inh inhalation BID venlafaxine 75 mg tablet extended release 24hr 150 mg PO DAILY sennosides [Senokot] 8.6 mg tablet 8.6 mg PO BID loperamide [Anti-Diarrheal (loperamide)] 2 mg capsule 2 mg PO Q6H PRN cetirizine [Zyrtec] 10 mg tablet 10 mg PO DAILY PRN phenazopyridine [Azo Urinary Pain Relief] 95 mg tablet 95 mg PO TID PRN nitrofurantoin macrocrystal 100 mg capsule 100 mg PO BID budesonide-formoterol [Symbicort] 80-4.5 mcg/actuation HFA aerosol inhaler 1 puff inhalation BID icosapent ethyl [Vascepa] 1 gram capsule 2 g PO BID Abilify Maintena 300 mg suspension,extended rel syring 300 mg IM QMONTH gabapentin 300 mg capsule 300 mg PO TID Qty: 90 5RF meclizine 12.5 MG tablet 12.5 mg PO BIDP PRN (Reason: Dizziness) polyethylene glycol 3350 17 GM powder in packet 17 gm PO DAILY montelukast 10 MG tablet 10 mg PO PM albuterol sulfate 8.5 GM HFA aerosol inhaler 2 inh IH Q6HP PRN (Reason: shortness of breath or wheezing) terazosin 10 MG capsule 10 mg PO HS bisacodyl 10 MG suppository 10 mg RC DAILYP PRN (Reason: Constipation) lactulose 20 GM/30 ML solution 30 gm PO DAILYP PRN (Reason: Constipation) divalproex [Depakote] 500 mg Tablet,Delayed Release (Dr/Ec) 500 mg PO BID Linzess 290 mcg Capsule 290 mcg PO HS cranberry extract 425 mg Capsule 850 mg PO DAILY cholecalciferol (vitamin D3) 125 mcg (5,000 unit) Tablet 125 mcg PO DAILY bethanechol chloride 25 MG tablet 25 mg PO QID 30 Days Qty: 0 0RF sucralfate 1 GM/10 ML suspension 10 ml PO BID ondansetron HCl 4 MG tablet 4 mg PO TIDP PRN (Reason: Nausea) acetaminophen 500 MG tablet 500 mg PO Q6HP PRN (Reason: Pain) ferrous sulfate 325 MG tablet 325 mg PO TID omeprazole 20 MG tablet,delayed release (DR/EC) 20 mg PO DAILY fluticasone propionate 120 SPR/BOT bottle 2 spr NS DAILY fludrocortisone 0.1 MG tablet 0.1 mg PO DAILY magnesium hydroxide 30 ML suspension 30 ml PO DAILYP PRN (Reason: BOWELS) ipratropium-albuterol 0.5 mg-3 mg(2.5 mg base)/3 mL solution for nebulization 3 ml inhalation Q6RT furosemide [Lasix] 20 mg tablet 20 mg PO DAILY Referrals Follow up/Referrals: Casimiro Barraza MD [Primary Care Provider] - See instructions Activity Restrictions/Add. Instructions Additional Instructions/Restrictions: Please return to the emergency department with any new or worsening symptoms. It does not appear that your symptoms are due to infection or any electrolyte abnormality. Clinical Impressions Clinical Impression: Intermittent drowsiness Discharge ED Provider: Eliseo Butterfield Adult HPI General Chief complaint: Weakness Stated complaint: weakness Time Seen by Provider: 01/11/23 16:53 Mode of Arrival: EMS Source of Information: Patient Limitations: No Limitations Description of Symptoms (Recalled from ER Triage Doc. by RN): Presents to ED with c/o feeling tired . Patient denies respiratory symptoms A&Ox4. Patient was just treated for a UTI. [facility] and stated they woke [her] up every 2 hours to use the bathroom . History of Present Illness HPI narrative: Patient presents for evaluation of daytime drowsiness and falling asleep while at clinic visit today, was not difficul
--- NOTE | 2023-01-11 17:09 | PC.NURSE ---
pt assisted to wheelchair. then transported to bathroom. pt was able to provide a urine sample. 1000ml emptied from hat. urine sent to lab. pt was able to get back in bed with minimal assistance.
--- NOTE | 2023-01-11 17:20 | XR_ITS ---
PROCEDURE INFORMATION: Exam: XR Chest Exam date and time: 01/11/2023 5:27 PM Age: 62 years old Clinical indication: Shortness of breath; Additional info: SOA TECHNIQUE: Imaging protocol: Radiologic exam of the chest. Views: 1 view. COMPARISON: CT CHEST WO CON 12/29/2022 1:28 PM FINDINGS: Lungs: Lung volumes are decreased. Increased indistinct bronchovascular markings below the right hilum the more apparent on the current study suspicious for active airway disease (bronchitis/bronchiolitis). Small nodular density left mid lung zone stable and recently evaluated on CT exam. Pleural spaces: Unremarkable. No pleural effusion. No pneumothorax. Heart/Mediastinum: Heart appears borderline enlarged on this portable chest. Bones/joints: Unremarkable for age. IMPRESSION: Findings suspicious for active airway disease right lower lobe. Negative for pneumonia.
[2023-01-11 17:28] LABS: Microscopic, Urine URINE MICROSCOPIC (MICROSCOPIC)
[2023-01-11 17:32] LABS: Appearance,Urine Clear (Clear); Color,Urine Yellow (Yellow); PH,Urine 7.5 (5.0-8.5)
[2023-01-11 17:33] LABS: Bilirubin,Urine Negative (Negative); Blood, Urine Negative (Negative); Glucose,Urine (UA) Negative (Negative); Ketones,Urine Trace (Negative); Leukocyte Esterase,Urine Negative (Negative); Nitrate,Urine Negative (Negative); Protein,Urine 7.5 (Negative); Urobilinogen,Urine 0.2 EU/dl (0.2)
[2023-01-11 17:46] LABS: RBC,Urine Occasional #/hpf (0-3); Squamous Epithelial Cell,Urine Occasional #/hpf (0-5)
[2023-01-11 18:13] LABS: Basophils % 0.6 % (0.1-2.0); Eosinophils # 0.2 K/mm3 (0.0-0.4); Eosinophils % 3.3 % (0.1-12.0); Hematocrit 37.7 % (37.0-47.0); Hemoglobin 12.9 g/dL (12.2-16.2); Lymphocytes # 2.3 K/mm3 (0.7-4.5); Lymphocytes % 36.8 % (10-50); Mean Corpuscular HGB Conc 34.1 g/dL (31.8-35.4); Mean Corpuscular Hemoglobin 32.3 pg (27.0-31.2); Mean Corpuscular Volume 94.8 fl (81-99); Mean Platelet Volume 7.5 fl (7.4-10.4); Monocytes # 0.4 K/mm3 (0.1-1.0); Monocytes % 7.2 % (1.7-9.3); Neutrophils # 3.2 K/mm3 (1.8-7.8); Platelet Count 225 K/mm3 (142-424); Red Blood Count 3.98 M/mm3 (4.20-5.40); Red Cell Distribution Width 13.2 % (11.5-17.5); White Blood Count 6.1 K/mm3 (4.8-10.8)
[2023-01-11 18:18] LABS: Alanine Aminotransferase 17 U/L (12-78); Albumin/Globulin Ratio 1.3 (1.1-1.8); Alkaline Phosphatase 66 U/L (38-126); Anion Gap 13.2 mEq/L (5-15); Aspartate Amino Transferase 25 U/L (14-36); Bilirubin,Total 0.3 mg/dl (0.2-1.3); Blood Urea Nitrogen 18 mg/dl (7-17); Calcium 9.4 mg/dl (8.4-10.2); Carbon Dioxide 32 mmol/L (22.0-30.0); Chloride 97 mmol/L (98-107); Creatinine Clearance Estimated 100 mL/min (50-200); Estimated Glomerular Filt Rate 72 ml/min (>60); GFR (African American) 88 ML/MIN (>60); Globulin 3.1 g/dL (1.3-3.2); Glucose 88 mg/dl (74-100); Potassium 4.2 mmoL/L (3.5-5.1); Sodium 138 mmol/L (136-145); Total Protein,Serum 7.1 g/dl (6.3-8.2)
[2023-01-11 18:35] LABS: Troponin I < 0.01 ng/ml (0.00-0.034)
[2023-01-11 18:45] LABS: Free T4 (Free Thyroxine) 1.04 ng/dl (0.78-2.19)
[2023-01-11 18:49] LABS: Thyroid Stimulating Hormone 4.53 uIU/mL (0.465-4.68)
--- NOTE | 2023-01-11 19:12 | PC.NURSE ---
handed off report to Yuki COTE
--- NOTE | 2023-01-11 19:31 | PC.NURSE ---
notified [facility] that pt is ready to be transported back to [place]
== END 2023-01-11 19:56 | disposition home health service (06) ==
PROVIDERS: Emergency Provider Emergency Medicine; PCP Emergency Medicine
DX: R53.83 Other fatigue (principal); I11.0 Hypertensive heart disease with heart failure; I50.9 Heart failure, unspecified; E11.9 Type 2 diabetes mellitus without complications; J45.30 Mild persistent asthma, uncomplicated; K21.9 Gastro-esophageal reflux disease without esophagitis; D64.9 Anemia, unspecified; F31.9 Bipolar disorder, unspecified
CPT/HCPCS: 71045; 80053; 81001; 84439; 84443; 84484; 85025; 96374; 99285; J2405

== ENCOUNTER → 2023-04-12 20:03 | Outpatient (CLI) | payer MEDICARE, MEDICAID, SELFPAY | PROVIDERS: PCP Internal Medicine; Visit Provider Nurse Practitioner Family | DX: G47.30 Sleep apnea, unspecified (principal); J96.12 Chronic respiratory failure with hypercapnia; R40.0 Somnolence | CPT/HCPCS: 95811 ==

== ENCOUNTER → 2023-04-20 18:44 | Outpatient (CLI) | payer MEDICARE, MEDICAID, SELFPAY ==
[2023-04-20 19:23] LABS: Microscopic, Urine URINE MICROSCOPIC (MICROSCOPIC)
[2023-04-20 19:47] LABS: Appearance,Urine SL CLOUDY (Clear); Bilirubin,Urine Negative (Negative); Blood, Urine 2+ (Negative); Color,Urine YELLOW (Yellow); Glucose,Urine (UA) Negative (Negative); Ketones,Urine Negative (Negative); Leukocyte Esterase,Urine 2+ (Negative); Nitrate,Urine Negative (Negative); Protein,Urine Negative (Negative); Urobilinogen,Urine 0.2 EU/dl (0.2)
[2023-04-20 20:18] LABS: Bacteria,Urine 4+ /lpf; Calcium Oxalate Crystals,Urine Trace /lpf; Squamous Epithelial Cell,Urine Occasional #/hpf (0-5)
== END ==
PROVIDERS: PCP Internal Medicine; Visit Provider Internal Medicine
DX: R10.9 Unspecified abdominal pain (principal); R30.0 Dysuria; B96.4 Proteus (mirabilis) (morganii) as the cause of diseases classified elsewhere; B96.89 Other specified bacterial agents as the cause of diseases classified elsewhere
CPT/HCPCS: 81001; 87086

== ENCOUNTER 2023-06-15 11:01 | Outpatient (CLI) | payer MEDICARE, MEDICAID, SELFPAY | END 2023-06-15 23:59 | LOC: RT 11:03 | PROVIDERS: PCP Internal Medicine; Visit Provider Nurse Practitioner | DX: R06.09 Other forms of dyspnea (principal); I49.9 Cardiac arrhythmia, unspecified | CPT/HCPCS: 93270 ==

== ENCOUNTER 2023-06-23 21:21 | Outpatient (CLI) | payer MEDICARE, MEDICAID, SELFPAY ==
[2023-06-23 22:02] LABS: Microscopic, Urine URINE MICROSCOPIC (MICROSCOPIC)
[2023-06-23 23:12] LABS: Appearance,Urine SL CLOUDY (Clear); Bilirubin,Urine Negative (Negative); Blood, Urine 2+ (Negative); Color,Urine YELLOW (Yellow); Glucose,Urine (UA) Negative (Negative); Ketones,Urine Negative (Negative); Leukocyte Esterase,Urine 3+ (Negative); Nitrate,Urine POSITIVE (Negative); Protein,Urine Negative (Negative)
[2023-06-23 23:30] LABS: Bacteria,Urine 3+ /lpf; WBC,Urine 20-50 #/hpf (0-3)
== END 2023-06-23 23:59 ==
PROVIDERS: PCP Internal Medicine; Visit Provider Internal Medicine
DX: N39.0 Urinary tract infection, site not specified (principal); B95.2 Enterococcus as the cause of diseases classified elsewhere; B96.89 Other specified bacterial agents as the cause of diseases classified elsewhere
CPT/HCPCS: 81001; 87086

== ENCOUNTER 2023-06-29 11:38 | Outpatient (CLI) | payer MEDICARE, MEDICAID, SELFPAY ==
--- NOTE | 2023-06-29 | CA_ITS ---
APPROVED REPORT Exam: Pharmacologic Technologist: Violeta Villalta, Ht: 5 ft 6 in HR: 58 bpm BP: 166/74 mmHg Rhythm: NSR, PACs Medical History Medications: Omeprazole,,,,, Ferrous sulfate,,,,, Gabapentin,,,,, SyMBICORT,,,,, Albuterol,,,,, Sucralfate,,,,, Vit D3,,,,, Acetaminophen,,,,, Singulair,,,,, Venlafaxine,,,,, Lactulose,,,,, LiNZESS,,,,, Cardiac Risk Factors: HTN, Diabetes (insulin) Stress Test Details Test: LEXISCAN HR Resting HR: 69 bpm Max Heart Rate (APMHR): 156 bpm Max HR Achieved: 82 bpm Target HR (85% APMHR): 133 bpm % of APMHR: 53 Recovery HR: 76 bpm BP Resting BP: 166/74 mmHg Max BP: 166/74 mmHg Recovery BP: 148.0/76.0 mmHg ECG Resting ECG: NSR, PACs Stress ECG: No significant ST changes Arrhythmia: Brief high grade AVB with lexiscan injection (self-resolved), frequent PACs Clinical Exercise duration: 04:00 min Highest Stage Achieved: Stress ECG Conclusion During lexiscan pt experinced mild SOA, stomach and head discomfort. Ectopy: Brief high grade AVB with lexiscan injection. Frequent PACs. ST changes: No significant ST changes. Conclusion: Brief high degree AV block following Lexiscan administration, during which the patient remained stable. This self resolved without recurrence. No ST changes during Lexiscan stress testing. Myoview images reported separately. Test Summary REST . . . . . . . Sitting REST 04:58 . . 69 . 166/ 74 . . Stage 1 01:00 . . 67 . . . . Stage 2 01:00 . . 79 . . . . Stage 3 01:00 . . 72 . 133/ 68 . . Stage 4 01:00 . . 68 . . . Stop exercise at 04:00 RECOVERY 01:00 . . 75 . 137/ 62 . . RECOVERY 02:00 . . 78 . 137/ 62 . . RECOVERY 03:00 . . 68 . 137/ 62 . . RECOVERY 04:00 . . 71 . 148/ 76 . . RECOVERY 05:00 . . 69 . 148/ 76 . . RECOVERY 06:00 . . 75 . 148/ 76 . . RECOVERY 06:13 . . 71 . 149/ 76 . . Electronically signed by : Sarika Arrington MD 07/01/2023 21:21:08
--- NOTE | 2023-06-29 11:39 | NM_ITS ---
APPROVED REPORT Exam: Nuclear Stress Test Indication: soa Patient Location: Outpatient Stress Tech: Violeta TRINIDAD Tech:Mary WayneZACHARIAH RT(R)(N) Ht: 5 ft 6 in Wt: 251 lbs Bra Size: 40b HR: 69 bpm BP: 166/74 mmHg BSA: 2.20 m2 TID: 0.95 BMI: 40.5 History: soa Procedure: Patient received 0.4 mg of intravenous Lexiscan, resting heart rate 69 bpm, resting blood pressure 166/74 mmHg, with Lexiscan maximum heart rate achieved was 82 bpm which is 85 % of the maximum predicted heart rate and blood pressure was 166/74 mmHg. With Lexiscan, patient denied any complaint of chest pain. The pt was not able to lay on her abdomen for prone images. Cardiac Stress and Resting SPECT Images: Cardiac Stress and Resting SPECT images were obtained using technetium 99m Myoview 32.4 mCi stress and 9.66 mCi at rest. Technically difficult study due to significant soft tissue and diaphragmatic overlap with the cardiac borders. There is also significant GI radiotracer uptake in close proximity to the inferior LV wall. This may affect the diagnostic interpretation of the study findings. Resting and stress imaging in supine positions demonstrate a large sized, moderate, fixed perfusion defect in the inferior LV wall. There is also a large sized, moderate, reversible perfusion defect in the basal to mid anterior LV wall. Gated imaging demonstrates low-normal LV systolic function. There is mild hypokinesis of the inferior and anterior LV castro. LVEF is calculated at 51%. Conclusion: Technically difficult study. Large sized, moderate, fixed perfusion defect in the inferior LV wall. There is also a large sized, moderate, reversible perfusion defect in the basal to mid anterior LV wall. Findings are suggestive of reversible ischemia. Gated imaging demonstrates low-normal LV systolic function. There is mild hypokinesis of the inferior and anterior LV castro. LVEF is calculated at 51%. Electronically signed by : Sarika Arrington MD 07/01/2023 21:24:43
--- NOTE | 2023-06-29 11:52 | CA_ITS ---
APPROVED REPORT EXAM: Comprehensive 2D, Doppler, and color-flow Echocardiogram Restorative Care Technician: ERICH Mendieta, RVS Ht: 5 ft 6 in Wt: 240lbs BSA: 2.16 BP: 116/72 mmHg Indications: Wheelchair bound, LANCE, FOLEY CHF, CArdiac arrythmia, DM, HTN, Schizophrenia Echo Enhancing Agent Comments: Extremely limited acoustic window: Patient insisted in remaining in wheelchair seated upright throughout exam/ Lung impedance throughout exam. 2D Dimensions IVSd 0.99 cm F: 0.6-1.0 LVEF (Visual) 60.70 % PWd 1.09 cm F: 0.6 - 1.0 LA Volume 50.40 mL LVDd 5.00 cm F: 3.9 - 5.3 LA Volume Index 23.755008 mL/m2 (M/F) 16-34 LVDs 3.37 cm F: 2.2 - 3.5 Left Atrium 3.01 cm F: 2.7 - 3.8 M-Mode Dimensions LA Diam 3.93 cm (1.9-4.0) EPSs 1.18 cm TAPSE 1.53 (<1.7) LV Diastology E Decel Time 217 (160-240 msec) E/A Ratio 1.22 MED A' 10.20 cm/s LAT A' 7.30 cm/s Mitral Valve MV A Velocity 57.0 (40-130 cm/s) E/A Ratio 1.22 MV Mean Gr. 1.00 (<2mmHg) Tricuspid Valve TR P. Velocity 196.00 cm/s RAP Estimate 10.00 mmHg RVSP 25.40 mmHg Left Ventricle The left ventricle is normal size. The left ventricular systolic function is normal. The left ventricular ejection fraction is within the normal range. There is increased LV wall thickness. There is normal LV segmental wall motion. The left ventricular diastolic function is normal. LVEF is 55%. Right Ventricle The right ventricle is mildly dilated. The right ventricular systolic function is normal. Atria The left atrium size is normal. The right atrium size is normal. The interatrial septum is not well-visualized. Aortic Valve The aortic valve is mildly thickened. There is no aortic valvular stenosis. No aortic regurgitation is present. Mitral Valve The mitral valve leaflets are mildly thickened. No evidence of mitral valve stenosis. Trace mitral regurgitation. Tricuspid Valve The tricuspid valve leaflets are thin and pliable. Trace tricuspid regurgitation. There is insufficient TR jet to estimate RVSP. Pulmonic Valve The pulmonary valve is normal in structure. Trace pulmonic regurgitation. Great Vessels The aortic root is normal in size. The ascending aorta is not well-visualized. IVC is normal in size and collapses >50% with inspiration. Pericardium There is no pericardial effusion. Other Information Study Quality: Technically Difficult Conclusion Technically difficult study due to poor acoustic windows. Normal biventricular systolic function. Mild RV dilation. No significant valvular stenosis or regurgitation. Electronically signed by : Sarika Arrington MD 07/03/2023 10:45:51
[2023-06-29] MEDS: REGADENOSON 0.4MG/5ML SYRINGE 0.400000000000000022 MG IV (14:39)
[2023-06-29] MEDS: ISOTOPE MYOVIEW (PER STUDY) 1 DOSE IV (14:39)
[2023-06-29] MEDS: SODIUM CHLORIDE 0.9% 10ML SYR (RAD ONLY) 10 ML IV ×2 (14:39)
== END 2023-06-29 23:59 ==
LOC: RAD 11:39
PROVIDERS: PCP Internal Medicine; Visit Provider Nurse Practitioner
DX: E11.9 Type 2 diabetes mellitus without complications (principal); G47.33 Obstructive sleep apnea (adult) (pediatric); I50.9 Heart failure, unspecified; J44.9 Chronic obstructive pulmonary disease, unspecified; R06.00 Dyspnea, unspecified; I48.0 Paroxysmal atrial fibrillation; I49.8 Other specified cardiac arrhythmias; Z79.899 Other long term (current) drug therapy
CPT/HCPCS: 78452; 93017; 93018; 93306; A9502; J2785

== ENCOUNTER 2023-07-10 13:17 | Outpatient (CLI) | payer MEDICARE, MEDICAID, SELFPAY ==
--- NOTE | 2023-07-10 14:18 | CT_ITS ---
FINAL REPORT TECHNIQUE: Thin section axial images were obtained from the lung apices through the upper abdomen without contrast. This study was performed with techniques to keep radiation doses as low as reasonably achievable (ALARA). Individualized dose reduction techniques using automated exposure control or adjustment of mA and/or kV according to the patient's size were employed. CLINICAL HISTORY: Right lower lobe nodule 6-month follow-up COMPARISON: 12/29/2022 FINDINGS: There is no axillary lymphadenopathy. Precarinal lymph node is stable but mildly enlarged. There is no hilar lymphadenopathy.. No pleural or pericardial effusion. There is a stable 7 mm lingular nodule with an adjacent stable 5 mm lingular nodule. There are new reticulonodular opacities in the right middle lobe concerning for bronchopneumonia. The previously seen 17 mm nodule along the right major fissure has decreased in size.. Limited, unenhanced evaluation of the upper abdomen is without acute abnormality. There is no acute osseous abnormality. IMPRESSION: Stable lingular nodules. New right middle lobe bronchopneumonia. Interval decrease in size nodule along the right major fissure. Consider continued follow-up to ensure stability of the nodules and resolution of pneumonia. Reviewed, Interpreted and Dictated by Sylvie Leslie MD Transcribed by Paulina Wolfe Authenticated and [facility]
== END 2023-07-10 23:59 ==
LOC: RT 13:18 → RAD 14:16 → RT 14:19
PROVIDERS: PCP Internal Medicine; Visit Provider Internal Medicine Pulmonary Disease
DX: R06.09 Other forms of dyspnea (principal); R91.8 Other nonspecific abnormal finding of lung field
CPT/HCPCS: 71250

== ENCOUNTER 2023-07-20 09:42 | Day surgery (SDC) | payer MEDICARE, MEDICAID, SELFPAY ==
[2023-07-20] VITALS (13 sets, daily range): BP systolic 90–117; BP diastolic 58–82; PULSE 56–64; RESP 17–19; TEMP 36.6; O2SAT 93–99; BMI 40.5
--- NOTE | 2023-07-20 07:09 | IR_ITS ---
APPROVED REPORT Patient Location: Outpatient Supervisor Nuclear Medicine: ZACHARIAH Godoy RT (R) PROCEDURES Left heart catheterization Left ventriculogram Selective coronary angiogram INDICATION Abnormal Myoview, Angina pectoris, Informed consent was obtained prior to the procedure. COMPLICATIONS None Estimated Blood Loss: Less than 10 mls TECHNIQUE One percent lidocaine used to anesthetize the right anterior aspect of the wrist. The right radial artery was accessed via the Seldinger technique. A 6 Dominican sheath was placed in the right radial artery. 2.5 mg of Verapamil, 800 mcg of nitroglycerin, 1mg Lidocaine and 5000 U Heparin were given through the arterial sheath. The papa catheter was also used to perform left heart catheterization, left ventriculogram and selective coronary angiogram. At the end of the procedure the sheath was removed good hemostasis was achieved using Traclet band, patient was transferred to the postop holding area in stable condition. ANGIOGRAPHIC RESULTS The left main artery Normal The left anterior descending artery Normal The circumflex artery Normal The right coronary artery Is dominant has a mid vessel smooth 30% stenosis The GIORDANO ventriculogram reveals Normal 65% The left ventricular end-diastolic pressure 20 mmHg IMPRESSION Mild nonflow limiting coronary disease Normal ejection fraction Elevated LVEDP PLAN 1. Medical management Electronically signed by : Cachorro Santiago MD 07/20/2023 11:46:03
[2023-07-20 11:04] LABS: Basophils % 0.5 % (0.1-2.0); Eosinophils # 0.2 K/mm3 (0.0-0.4); Eosinophils % 2.5 % (0.1-12.0); Hematocrit 38.4 % (37.0-47.0); Hemoglobin 12.9 g/dL (12.2-16.2); Lymphocytes # 2.3 K/mm3 (0.7-4.5); Mean Corpuscular HGB Conc 33.7 g/dL (31.8-35.4); Mean Corpuscular Hemoglobin 33.6 pg (27.0-31.2); Mean Corpuscular Volume 99.8 fl (81-99); Mean Platelet Volume 6.9 fl (7.4-10.4); Monocytes # 0.6 K/mm3 (0.1-1.0); Monocytes % 8.6 % (1.7-9.3); Neutrophils # 3.8 K/mm3 (1.8-7.8); Neutrophils % 55.4 % (37.0-80.0); Platelet Count 236 K/mm3 (142-424); Red Blood Count 3.85 M/mm3 (4.20-5.40); Red Cell Distribution Width 14.1 % (11.5-17.5); White Blood Count 6.9 K/mm3 (4.8-10.8)
[2023-07-20 11:15] LABS: Anion Gap 11.9 mEq/L (5-15); Blood Urea Nitrogen 17 mg/dl (7-17); Calcium 8.7 mg/dl (8.4-10.2); Carbon Dioxide 31 mmol/L (22.0-30.0); Chloride 98 mmol/L (98-107); Creatinine Clearance Estimated 102 mL/min (50-200); Estimated Glomerular Filt Rate 84 ml/min (>60); GFR (African American) 102 ML/MIN (>60); Glucose 70 mg/dl (74-100); Potassium 4.9 mmoL/L (3.5-5.1); Sodium 136 mmol/L (136-145)
[2023-07-20] MEDS: HEPARIN 1,000 UNITS/ML 10ML VIAL (CATH LAB) 10000 UNIT IV (11:17)
[2023-07-20] MEDS: HEPARIN 1,000 UNITS/500ML NS (CATH LAB) 3000 UNIT IV (11:17)
[2023-07-20] MEDS: VERAPAMIL 2.5MG/ML 2ML VIAL 2.5 MG IV (11:17)
[2023-07-20] MEDS: NITROGLYCERIN 800MCG/8ML SYR (CATH LAB) 800 MCG IA (11:17)
[2023-07-20] MEDS: 0.9 % SODIUM CHLORIDE 500 ML 25 ML IV (11:17)
[2023-07-20] MEDS: LIDOCAINE 1% 10ML MDV 20 ML IJ (11:18)
[2023-07-20] MEDS: diphenhydrAMINE 50MG/ML VIAL 50 MG IV (11:18)
[2023-07-20] MEDS: FENTANYL 100MCG/2ML VIAL 50 MCG IV (11:43)
[2023-07-20] MEDS: MIDAZOLAM HCL 1MG/1ML 5ML VIAL 1 MG IV (11:43)
[2023-07-20] MEDS: IOPAMIDOL-370 (76%);100ML BOTTLE 60 ML IV (12:10)
--- NOTE | 2023-07-20 15:13 | SUR.PHASEII ---
Report called to [facility] Henley
== END 2023-07-20 15:20 | disposition home or self-care (01) ==
PROVIDERS: PCP Internal Medicine; Visit Provider Internal Medicine
DX: R06.00 Dyspnea, unspecified (principal); I48.0 Paroxysmal atrial fibrillation; J44.9 Chronic obstructive pulmonary disease, unspecified; E11.9 Type 2 diabetes mellitus without complications; G47.33 Obstructive sleep apnea (adult) (pediatric); R94.39 Abnormal result of other cardiovascular function study; Z82.49 Family history of ischemic heart disease and other diseases of the circulatory system; I25.118 Atherosclerotic heart disease of native coronary artery with other forms of angina pectoris; Z79.899 Other long term (current) drug therapy; I11.0 Hypertensive heart disease with heart failure; I50.9 Heart failure, unspecified; E55.9 Vitamin D deficiency, unspecified
CPT/HCPCS: 80048; 85025; 93458; 99152; C1725; C1760; C1769; J1644; Q9967

== ENCOUNTER 2023-09-26 09:44 | Outpatient (CLI) | payer MEDICARE, MEDICAID, SELFPAY ==
[2023-09-26 10:30] LABS: Basophils # 0.1 K/mm3 (0-0.2); Basophils % 1.2 % (0.1-2.0); Eosinophils # 0.1 K/mm3 (0.0-0.4); Eosinophils % 1.9 % (0.1-12.0); Hematocrit 40.4 % (37.0-47.0); Hemoglobin 13.1 g/dL (12.2-16.2); Lymphocytes # 1.9 K/mm3 (0.7-4.5); Lymphocytes % 34.4 % (10-50); Mean Corpuscular HGB Conc 32.5 g/dL (31.8-35.4); Mean Corpuscular Volume 101.7 fl (81-99); Mean Platelet Volume 8.2 fl (7.4-10.4); Monocytes # 0.3 K/mm3 (0.1-1.0); Monocytes % 5.9 % (1.7-9.3); Neutrophils # 3.1 K/mm3 (1.8-7.8); Neutrophils % 56.6 % (37.0-80.0); Platelet Count 228 K/mm3 (142-424); Red Blood Count 3.97 M/mm3 (4.20-5.40); Red Cell Distribution Width 14.2 % (11.5-17.5); White Blood Count 5.5 K/mm3 (4.8-10.8)
[2023-09-26 11:35] LABS: Alanine Aminotransferase 20 U/L (12-78); Albumin Level 3.9 g/dl (3.5-5.0); Alkaline Phosphatase 54 U/L (38-126); Anion Gap 12.7 mEq/L (5-15); Aspartate Amino Transferase 22 U/L (14-36); Bilirubin,Direct 0.1 mg/dl (0.0-0.4); Bilirubin,Indirect 0.3 mg/dL (0.0-0.9); Bilirubin,Total 0.4 mg/dl (0.2-1.3); Bilirubin,Unconjugated 0.3 mg/dL (0.0-1.1); Blood Urea Nitrogen 14 mg/dl (7-17); Calcium 9.7 mg/dl (8.4-10.2); Carbon Dioxide 34 mmol/L (22.0-30.0); Chloride 96 mmol/L (98-107); Chol/HDL Ratio 3.5 (1-3.5); Cholesterol 138 mg/dl (140-200); Estimated Glomerular Filt Rate 84 ml/min (>60); GFR (African American) 102 ML/MIN (>60); Glucose 105 mg/dl (74-100); HDL Cholesterol 39 mg/dl (40-60); Magnesium 1.3 mg/dl (1.6-2.3); Potassium 3.7 mmoL/L (3.5-5.1); Sodium 139 mmol/L (136-145); Total Protein,Serum 6.2 g/dl (6.3-8.2); Triglycerides 242 mg/dl (30-150); VLDL Cholesterol 48 mg/dL (0-40)
[2023-09-26 11:50] LABS: Free T4 (Free Thyroxine) 1.03 ng/dl (0.78-2.19)
[2023-09-26 12:05] LABS: Thyroid Stimulating Hormone 3.51 uIU/mL (0.465-4.68)
[2023-09-26 13:39] LABS: Direct LDL Cholesterol 65.21 mg/dL (100-129)
== END 2023-09-26 23:59 | disposition home or self-care (01) ==
LOC: LAB 09:45
PROVIDERS: PCP Internal Medicine; Visit Provider Nurse Practitioner
DX: R53.83 Other fatigue (principal); R94.30 Abnormal result of cardiovascular function study, unspecified; I25.10 Atherosclerotic heart disease of native coronary artery without angina pectoris; E78.2 Mixed hyperlipidemia; Z82.49 Family history of ischemic heart disease and other diseases of the circulatory system; R06.00 Dyspnea, unspecified; J44.9 Chronic obstructive pulmonary disease, unspecified; E11.622 Type 2 diabetes mellitus with other skin ulcer; I50.9 Heart failure, unspecified; G47.33 Obstructive sleep apnea (adult) (pediatric)
CPT/HCPCS: 36415; 80048; 80061; 80076; 83735; 84439; 84443; 85025

== ENCOUNTER 2023-11-14 11:00 | Outpatient (RCR) | payer MEDICARE, MEDICAID, SELFPAY ==
--- NOTE | 2023-11-07 11:38 | HMH.PTOPWND ---
Rehab Outpt Wound Evaluation Rehab OP Wound Evaluation Start: 11/07/23 10:52 Freq: Status: Active Protocol: Document 11/07/23 10:55 CHELSEA (Rec: 11/07/23 11:06 PHODMITRI [id number]) E-signed By Sawyer West, PT Subjective/History History History This is the initial PT eval for Johanny Molina, 63 yowf, who presents with B LE chronic lymphedema, L LE worse than R . She reports no pain at baseline, but some tenderness to palpation. She has difficulty with mobility at baseline and is a local [facility] resident. She also reports s new onset occurrence of a chronic L heel wound that is being treated at her [facility]. She has significant PMH of: Elevated left ventricular end- diastolic pressure (LVEDP) CAD in [place] artery Fatigue Swelling of lower extremity Hyperlipidemia Pure hypercholesterolemia, unspecified Vitamin D deficiency, unspecified Type 2 diabetes mellitus without complications Obstructive sleep apnea (adult ) (pediatric) Idiopathic sleep related nonobstructive alveolar hypoventilation Unspecified mood [affective] disorder Unspecified psychosis not due to a substance or known physiological condition Acute pancreatitis without necrosis or infection, unspecified Schizoaffective disorder, unspecified Unspecified fracture of left patella, initial encounter for closed fracture Interstitial cystitis Recurrent UTI Hospital-acquired pneumonia Hx of bipolar disorder Hx: UTI (urinary tract infection) Migraine GERD (gastroesophageal reflux disease) Depression Cancer Anxiety Sarcoidosis History of MRSA infection of lungs Mild persistent asthma Personal history of sarcoidosis Multiple pulmonary nodules Wheezing Dyspnea on exertion Dyspnea CHF (congestive heart failure) Diabetes type 2, controlled Anemia HTN (hypertension) Subjective Subjective She reports no pain at rest, 0 /10. 2/4 TTP to B lower legs. 1+ pitting edema noted overlying MOD to SEV fibrotic edema of B LE. L foot with mild hyperkeratosis noted. New diagnosis of cancer in past 12 No months? Lymphedema Eval Classification of Lymphedema Primary Lymphedema Yes Secondary Lymphedema Yes Stemmer's sign Stemmer's Sign yes Stage of Lymphedema Lymphedema stages Stage III (Non-pitting, fibrosis and sclerosis, skin changes) Skin Changes Dry Skin Yes Skin Folds Yes Hyperkeratosis Yes Wounds Yes Discoloration of Skin Yes Other Changes Yes Pain Scale Pain Scale (0-10) 0 Lower Extremity Measurements Right MTP Measurement (cm) 28.2 Heel Measurement (cm) 38.1 10 cm Proximal to Lateral Malleoli 33.0 Measurement (cm) 20 cm Proximal to Lateral Malleoli 42.7 Measurement (cm) 30 cm Proximal to Lateral Malleoli 41.5 Measurement (cm) 40 cm Proximal to Lateral Malleoli 0 Measurement (cm) 50 cm Proximal to Lateral Malleoli 0 Measurement (cm) 60 cm Proximal to Lateral Malleoli 0 Measurement (cm) Lower Extremity Measurement Total (cm) 183.5 Left MTP Measurement (cm) 32.6 Heel Measurement (cm) 37.5 10 cm Proximal to Lateral Malleoli 35.0 Measurement (cm) 20 cm Proximal to Lateral Malleoli 44.5 Measurement (cm) 30 cm Proximal to Lateral Malleoli 41.7 Measurement (cm) 40 cm Proximal to Lateral Malleoli 0 Measurement (cm) 50 cm Proximal to Lateral Malleoli 0 Measurement (cm) 60 cm Proximal to Lateral Malleoli 0 Measurement (cm) Lower Extremity Measurement Total (cm) 191.3 Manual Lymphatic Drainage Treatment Area MLD Treatment Area Right Lower Extremity,Left Lower Extremity Wound Problems/Impairments Impairments Problems/Impairmments Palpation Tenderness,Impaired Range of Motion,Increased Edema,Lymphedema Present, Impaired Self Care/Self Management Prognosis Rehab Potential Good Comment Skilled therapy services are needed to aid pt return to PLOF and reduce overall burden of chronic lymphedema. Clinical Impression Consistent with Diagnosis Yes Short Term Goals Number of Weeks 2 Decreased Palpation Tenderness Yes: 1/4 B lower legs Decrease Edema Yes: no pitting edema Patient to Understand Lymphedema Yes Treatment and Exercises Decrease Girth Measurments by (cm) Yes: B LE total by 5 cm ea Custodial Goals Number of Weeks 4 Decreased Palpation Tenderness Yes: 0/4 B Lower legs Improve Ability to Shower/Bathe Self Yes Decrease Lymphedema Yes: Mild to Moderate B LE fibrotic edema Patient to be Ind w/ HEP Yes Patient to Adhere Lymphedema Precautions Yes Decrease Girth Measurments by (cm) Yes: B LE total by 15 cm ea Outpatient Therapy Plan of Care Treatment Plan May Include Therapeutic Exercise Including Home Yes Exercise Program Manual Therapy Techniques Yes Neuromuscular Re-education Yes Therapeutic Activities to Return to Yes Previous Functional/Work Level ADL/Self Care Education Yes Orthotics/Bracing/Splinting Yes Manual Lymphatic Drainage Yes Wound Care Yes Eval/Re-Eval Yes Frequency Times per week 2 Duration Number of Weeks 4 Addendums This patient is a candidate for social No or vocational rehab? Patient/Guardian verbally acknowledges Yes understanding of treatment program and consents to further treatment? Patient/Guardian verbally acknowledges Yes understanding of diagnosis, prognosis and goals for treatment? Eval Complexity PT Charges 52353 - High Complexity PHYSICIAN CERTIFICATION: I certify the specified therapy services for Johanny Molina are required, authorized, and reviewed every 30 days.
== END 2023-11-14 12:05 | disposition home or self-care (01) ==
LOC: PT 11:00
PROVIDERS: Visit Provider Family Medicine
DX: I89.0 Lymphedema, not elsewhere classified (principal)
CPT/HCPCS: 97140; 97163

== ENCOUNTER 2023-12-19 10:57 | Outpatient (CLI) | payer MEDICARE, MEDICAID, SELFPAY ==
--- NOTE | 2023-12-19 10:58 | FL_ITS ---
FINAL REPORT CLINICAL HISTORY: dysphagia 74.09 mGy 4:22 fluoro time FINDINGS: MODIFIED BARIUM SWALLOW History: Dysphagia FINDINGS: Fluoroscopy was provided for the speech pathologist to evaluate the swallowing mechanism. The patient was given several different consistencies of barium while the swallow was visualized fluoroscopically. The report of the speech pathologist should be consulted prior to making dietary decisions. Fluoroscopy time: Rob is 22 seconds Radiation exposure in Reference air Kerma: 74.09 mGy IMPRESSION: Modified barium swallow under fluoroscopic guidance. Please see the report of the speech pathologist for Dietary recommendations. Films reviewed , interpreted and dictated by Dr. Santana Transcribed by Lobito Dao PA-C. Reviewed, Interpreted and Dictated by Maikel Santana III, MD Transcribed by ALETHEA Nagel Authenticated and [facility]
[2023-12-19] MEDS: BARIUM SULFATE(LIQUID E-Z-PAQUE);355ML BOTTLE 355 ML PO (11:55)
--- NOTE | 2023-12-19 15:54 | HMH.SLMBS2 ---
Speech & Language Evaluation Speech/Language Mod Barium Swallow Start: 12/19/23 15:13 Freq: once Status: Complete Protocol: Document 12/19/23 15:14 CHERY (Rec: 12/19/23 15:53 [id number] Co-signed By [facility] General Information General Current Food Consistancy Mechanical Soft,Thin Liquids Dentition Edentulous Oxygen Status Room Air Patient Orientation Person Ability to Follow Directions Good Communication Ability No Impairment MBS Recommendations Diet Dietary Recommendations Mechanical Soft,Thin Liquids Treatment/Strategies Treatment Recommendation Base of Tongue Exercises, Compens. Strategy Educat. Strategy/Precaution Recommend Sitting Upright (90 deg),Chin Tuck,Double Swallow, Supraglottic Swallow,Small Bites and Sips,Alternate Liquids/Solids Mod Barium Swallow Impressions Summary and Impressions Oral Phase Impression Mild Impairment Oral Phase Summary Mild impairment of the oral phase of swallow. Pt exhibited reduced and prolonged mastication and manipulation of bolus on mechanical soft trial '2 dentition. Pt exhibited reduced lingual movements on all consistencies trialed. Mild-moderate residue on all consistencies trialed, which were cleared with multiple swallows and lingual sweep. Pharyngeal Phase Impression Moderate Impairment Pharyngeal Phase Summary Moderate impairment of pharyngeal phase of swallow. Eduar aspiration of residue noted on whole pill in pudding . Throat clear and multiple swallows utilized to clear residue. Pt exhibited lingual propulsion spill on mechanical soft trials. Reduced base of tongue retraction, epiglottic closure, and hyolaryngeal excursion and elevation on all consistencies trialed. Diffuse residue in the oropharynx on all consistencies trialed, which was cleared with multiple swallows. Chin tuck adequate at decreasing oropharynx residue on all consistencies trialed. Speech/Language MBS Assessment/Goals/Plan Assessment Date of Evaluation: 12/19/23 Evaluation Type Initial Certification Assessment/Problems dysphagia per MD order Does Patient Qualify for Service Yes Qualify/Failure Comment Based on clinical observations made throughout instrumental assessment and patient/ caregiver interview, patient would benefit from further skilled speech therapy in SNF ([facility]) with current SHIPPING COORDINATOR. Recommendations PHYSICIAN CERTIFICATION: The specified therapy services are required, authorized, and reviewed every 30 days. Diet Recommendations Mechanical Soft Liquid Type Recommendations Normal/Thin SL Swallow Guidelines High aspiration risk,Standard Aspiration Prec.,Crush meds as allowed*,Eat at slow rate, Oral Care Education Crush Meds Crush all meds Dysphagia Swallow Precautions/Strategies Sitting Upright (90 deg),Chin Tuck,Double Swallow, Supraglottic Swallow,Small Bites and Sips,Alternate Liquids/Solids Plan Pt/Guardian verbally ack understanding Yes of dx/prognosis/goals G -code Required No Education Instructions provided SHIPPING COORDINATOR discussed clinical observations made throughout instrumental assessment, compensatory strategies/ aspiration precautions, and diet recommendations with patient and caregiver. Document listing study findings, strategies, and recommendations sent to facility with director post. Pt/Caregiver able to recall information Able to recall/restate Reinforcement needed No Mod Barium Swallow Setup Exam Setup Radiologist Maikel Santana Level of Consciousness Awake,Alert,Appropriate, Follows Commands Mod Barium Swallow-Lat View Textures Lateral View Food Presentation Thin Liquid via Cup,Thin Liquid via Straw,[place] Liquid via Cup,Pureed Food- Thick, Mech. Soft Food- Regular, Barium Tablet,Pudding Comment All bolus' trialed x2+ to assess consistency and fatigue . Oral Phase Labial Closure No Impairment (WFL) Bolus Formation Pooling L/R No Impairment (WFL) Bolus Formation under Tongue No Impairment (WFL) Bolus Formation Scattered Loss No Impairment (WFL) Mastication Rotary Chew Moderate Impairment Mastication Munching Moderate Impairment Mastication Lateralization Moderate Impairment Lingual Movement Moderate Impairment Residue Clearing Moderate Impairment Pharyngeal Phase A/P Lingual Propulsion Spills Mild Impairment Swallow Response Delay Mild Impairment Base of Tongue Moderate Impairment Epiglottic Coverage Moderate Impairment Laryngeal Elevation Moderate Impairment Vallecular Retention Clearing Moderate Impairment Pharyn. Wall Residue Clearing Moderate Impairment Piriform Sinus Retention Mild Impairment Aspiration? Yes Degree of Aspiration Medium When aspirated After the swallow Consistencies Aspirated Pudding residue from vallecula after pudding w/ whole pill trial. Pill was cleared Silent aspiration? Yes Reason for aspiration Inadequate epiglottic coverage and hyolaryngeal excursion and elevation Mod Barium Swallow-AP View Performed Mod Barium Swallow A/P View Test Not Applicable/Performed PHYSICIAN CERTIFICATION: I certify the specified therapy services for Johanny Molina are required, authorized, and reviewed every 30 days.
== END 2023-12-19 23:59 | disposition home or self-care (01) ==
LOC: RAD 10:58
PROVIDERS: PCP Family Medicine; Visit Provider Family Medicine
DX: R13.10 Dysphagia, unspecified (principal)
CPT/HCPCS: 70371; 92611

== ENCOUNTER 2024-01-18 10:14 | Outpatient (CLI) | payer MEDICARE, MEDICAID, SELFPAY | END 2024-01-18 23:59 | disposition home or self-care (01) | LOC: RT 10:15 | PROVIDERS: PCP Family Medicine; Visit Provider Internal Medicine Pulmonary Disease | DX: R06.09 Other forms of dyspnea (principal) | CPT/HCPCS: 94060 ==

== ENCOUNTER 2024-02-16 08:27 | Inpatient (IN) | payer MEDICARE, MEDICAID, SELFPAY ==
[2024-02-16] VITALS (14 sets, daily range): BP systolic 112–145; BP diastolic 53–87; PULSE 65–129; RESP 20–27; TEMP 36.8–39.3; O2SAT 90–100; BMI 56.5; BMI 56.2
--- NOTE | 2024-02-16 08:24 | XR_ITS ---
FINAL REPORT CLINICAL HISTORY: Shortness of breath COMPARISON: 01/11/2023 FINDINGS: The heart size is normal. The mediastinum is normal. The lungs are underinflated. Mild chronic changes are noted at the lung bases. There are no pleural effusions. There is no pneumothorax. There is no osseous abnormality. IMPRESSION: No acute cardiopulmonary process Reviewed, Interpreted and Dictated by Kevin Kemp MD Transcribed by Faiza Aguilra Authenticated and [facility]
--- NOTE | 2024-02-16 08:31 | CT_ITS ---
FINAL REPORT TECHNIQUE: Axial CT images were performed through the head. Coronal reformatted images were submitted. This study was performed with techniques to keep radiation doses as low as reasonably achievable (ALARA). Individualized dose reduction techniques using automated exposure control or adjustment of mA and/or kV according to the patient's size were employed. CLINICAL HISTORY: AMS COMPARISON: 05/02/2022 FINDINGS: There is mild atrophy with proportional ventriculomegaly. There is no evidence of hemorrhage. There is no mass or edema identified. There is no abnormal extra-axial fluid seen. There has been resection of the medial castro of the maxillary sinuses. No air-fluid levels are seen. IMPRESSION: Mild atrophy without acute intracranial process. Reviewed, Interpreted and Dictated by Kevin Kemp MD Transcribed by Paulina Wolfe Authenticated and . [facility]
--- NOTE | 2024-02-16 08:50 | HMH.EDCP ---
Discharge Plan Disposition Patient Disposition: Admitted Condition: Fair Clinical Impressions Clinical Impression: Acute alteration in mental status, UTI (urinary tract infection) Discharge ED Provider: Leona Jones HPI General Chief Complaint: Shortness of Breath/Dyspnea Stated Complaint: weakness Time Seen by Provider: 02/16/24 08:30 Mode of Arrival: EMS Source of Information: EMS Limitations: No Limitations Description of Symptoms (Recalled from ER Triage Doc. by RN): Patient presents to ED from [facility] [place] that called EMS that patient's O2 sat was low this morning and AMS. Patient is suppose to wear a cpap at night, when EMS arrived patient's cpap was not hooked into oxygen. Patient normally does not wear any O2 during the day. History of Present Illness HPI narrative: This patient is a 63-year-old female with a history of morbid obesity, LANCE on IVAPS, lung nodule, hypertension, hyperlipidemia, CAD, and sarcoidosis presenting to the emergency department for evaluation with concern for altered mental status. According to the nursing facility, the patient was found this morning with low O2. She was wearing her IVAPS mask, but it was not hooked up to oxygen last night when she was put to bed. She was unresponsive this morning and was unable to speak with a low O2 saturation in the 80s. Given this, they called EMS. Patient has had no reported recent illnesses and no reported recent falls according to nursing facility report. According to EMS, when they arrived she was not hooked up to oxygen though she was still wearing the mask. She did have low O2 saturation and was minimally responsive, however this slightly improved when they hooked up to oxygen via nonrebreather mask. Patient is able to respond verbally with her name but is otherwise very lethargic and does not contribute to history at this time. Related Data Home Medications ?Medication ?Instructions ?Recorded ?Confirmed acetaminophen 500 mg tablet 500 mg PO Q6HP PRN Pain 04/17/20 02/16/24 ferrous sulfate 325 mg (65 mg 325 mg PO TID Supplement 04/17/20 02/16/24 iron) tablet fludrocortisone 0.1 mg tablet 0.1 mg PO DAILY Adrenal disease 04/17/20 02/16/24 omeprazole 20 mg tablet,delayed 20 mg PO DAILY acid reflux 04/17/20 02/16/24 release ondansetron HCl 4 mg tablet 4 mg PO TIDP PRN Nausea 04/17/20 02/16/24 polyethylene glycol 3350 17 gram 17 gm PO DAILY CONSTIPATION 10/12/20 02/16/24 oral powder packet albuterol sulfate 90 mcg/actuation 2 inh inhalation Q6HP PRN 03/13/21 02/16/24 aerosol inhaler shortness of breath or wheezing bisacodyl 10 mg rectal suppository 10 mg MN DAILYP PRN Constipation 03/14/21 02/16/24 lactulose 20 gram/30 mL oral 30 ml PO DAILYP PRN Constipation 03/14/21 02/16/24 solution linaclotide 290 mcg capsule 290 mcg PO HS Irritable bowel 04/27/22 02/16/24 (Linzess) syndrome cranberry extract 425 mg capsule 850 mg PO DAILY 04/28/22 02/16/24 aripiprazole 300 mg suspension, 300 mg IM MONTHLY 01/11/23 02/16/24 extended rel. intramuscular syringe (Brandon Mcclellan) cetirizine 10 mg tablet (Zyrtec) 10 mg PO DAILY 01/11/23 02/16/24 icosapent ethyl 1 gram capsule 2 g PO BID 01/11/23 02/16/24 (Vascepa) azelastine 137 mcg (0.1 %) nasal 1 spray intranasal BID 04/18/23 02/16/24 spray cholecalciferol (vitamin D3) 125 125 mcg PO DAILY 04/18/23 02/16/24 mcg (5,000 unit) capsule estradiol 0.01% (0.1 mg/gram) 1 g vaginal .Twice Weekly 04/18/23 02/16/24 vaginal cream (Estrace) loperamide 2 mg capsule 2 mg PO Q6H PRN Diarrhea 04/18/23 02/16/24 meclizine 12.5 mg tablet 12.5 mg PO BIDP Dizziness 04/18/23 02/16/24 montelukast 10 mg tablet 10 mg PO HS 04/18/23 02/16/24 (Singulair) peg [id number] 1 1 drp ophthalmic (eye) Q6HP PRN 04/18/23 02/16/24 %-0.2 %-0.2 % eye drops dry eye(s) (Artificial Tears ([id number])) sennosides 8.6 mg-docusate sodium 2 tab-cap PO BID 04/18/23 02/16/24 50 mg tablet (Senexon-S) sucralfate 1 gram tablet 1 g PO BID 04/18/23 02/16/24 terazosin 10 mg capsule 10 mg PO HS 06/15/23 02/16/24 venlafaxine 150 mg 150 mg PO DAILY 06/15/23 02/16/24 capsule,extended release 24 hr divalproex 500 mg tablet,delayed 500 mg PO BID 07/13/23 02/16/24 release nitrofurantoin 100 mg PO BID 08/08/23 02/16/24 monohydrate/macrocrystals 100 mg capsule (Macrobid) potassium chloride 20 mEq 20 meq PO DAILY 08/08/23 02/16/24 tablet,extended release dextromethorphan-guaifenesin 10 10 ml PO Q4-6H PRN Cough 09/26/23 02/16/24 mg-100 mg/5 mL oral liquid phenazopyridine 95 mg tablet (Azo 95 mg PO TID PRN UTI symptoms 09/26/23 02/16/24 Urinary Pain Relief) aspirin 81 mg tablet,delayed 81 mg PO DAILY 02/16/24 02/16/24 release atorvastatin 20 mg tablet (Lipitor) 20 mg PO HS 02/16/24 02/16/24 furosemide 40 mg tablet 40 mg PO DAILY 02/16/24 02/16/24 metoprolol succinate 25 mg 12.5 mg PO HS 02/16/24 02/16/24 tablet,extended release 24 hr (Toprol XL) Previous Rx's ?Medication ?Instructions ?Recorded bethanechol chloride 25 mg tablet 25 mg PO QID bladder control 30 04/29/22 days #0 tabs fluticasone furoate 100 1 inh inhalation DAILY #60 ea 07/26/23 mcg-vilanterol 25 mcg/dose inhalation powder (Breo Ellipta) magnesium oxide 400 mg PO DAILY #14 tabs 09/27/23 gabapentin 300 mg capsule 300 mg PO TID Pain #90 caps 10/06/23 Allergies Allergy/AdvReac Type Severity Reaction Status Date / Time aspirin Allergy Verified 02/03/24 08:55 azithromycin Allergy Verified 01/25/24 10:15 bupropion Allergy Verified 01/25/24 10:15 [From Wellbutrin SR] Cephalosporins Allergy Verified 01/25/24 10:15 levofloxacin [From Levaquin] Allergy Verified 01/25/24 10:15 erythromycin base AdvReac Mild Verified 01/25/24 10:15 tramadol AdvReac Mild Verified 01/25/24 10:15 influenza vaccine AdvReac Unknown Uncoded 01/18/24 11:20 [facility] Disclaimer: The information contained in this section may have been updated after the patient was seen, as this information can be updated by other users. Medical History History of MRSA infection of lungs Diabetes type 2, controlled Anxiety Acute hypoxemic respiratory failure Sepsis Hospital-acquired pneumonia Pill esophagitis Chronic hypercapnic respiratory failure Dysphagia Elevated left ventricular end-diastolic pressure (LVEDP) CAD in [place] artery Hyperlipidemia Vitamin D deficiency, unspecified Obstructive sleep apnea (adult) (pediatric) Acute pancreatitis without necrosis or infection, unspecified Schizoaffective disorder, unspecified Unspecified fracture of left patella, initial encounter for closed fracture Interstitial cystitis Recurrent UTI Hx of bipolar disorder Migraine GERD (gastroesophageal reflux disease) Depression Cancer Mild persistent asthma Personal history of sarcoidosis Multiple pulmonary nodules CHF (congestive heart failure) Anemia HTN (hypertension) Surgical History Status post foot surgery Status post surgical removal of malignant neoplasm of skin History of sinus surgery History of hysterectomy History of dilation and curettage History of section History of colonoscopy Hx of cholecystectomy History of tonsillectomy Family History Other CHF (congestive heart failure) Social History Smoking Status: Never smoker alcohol intake: never substance use type: denies use current occupational status: unemployed Travel in the last 8 weeks: None household members: caregiver housing: assisted living facility caffeine: No Other Medical History Have you received the Flu Vaccine for this season: No Have you received the Pneumonia Vaccine: Yes ROS Obtained: Yes All systems reviewed & no additional complaints except as documented Physical Exam General General appearance: lethargic and obese Head Head exam: atraumatic and normocephalic Eye Eye exam: Present normal appearance, PERRL and EOMI ENT ENT exam: Present normal exam, normal oropharynx, mucous membranes moist and normal external ear exam Neck Neck exam: Present normal inspection, full ROM and trachea midline; Absent tenderness Chest Chest inspection: Present normal inspection and symmetric chest wall rise; Absent tenderness Respiratory Respiratory exam: Present other (Intermittent apneic spells with obesity hypoventilation); Absent wheezes, stridor or accessory muscle use Cardiovascular Cardiovascular exam: Present normal rhythm and tachycardia Abdominal Exam Abdominal exam: Present soft; Absent distention, tenderness or guarding Extremities Exam Extremities exam: Present full ROM, normal capillary refill and edema (Unna boots on bilateral lower extremities); Absent tenderness Back Exam Back exam: Present normal inspection and full ROM; Absent tenderness Neurological Exam Neurological exam: Absent alert or oriented X3 Expanded Neurological Exam Coma scale eye opening: To voice Coma scale motor response: Localizes to pain Coma scale verbal response: Confused Coma scale total: 12 Skin Skin exam: Present warm and dry HEART Score HEART Score HEART Score assessment performed?: Yes History (anamnesis): Slightly suspicious ECG: Normal Age: 45-65 years Risk factors: Atherosclerosis history Troponin: </= normal limit HEART Score: 3 Critical Care Critical Care Time Critical Care Time: Yes Attestation: On 02/16/24, the high probability of a clinically significant, sudden or life threatening deterioration of the following system(s) required my full and direct attention, intervention and personal management. The time I documented below is in addition to time spent performing reported procedures but includes the following listed in this critical care notation. Total Time Total Critical Care Time: 30 Medical Decision Making Medical Records Medical records reviewed: Yes I reviewed the patient's medical records. [place] Inquiry Pt receiving controlled substance: No Vital Signs Vital Signs: 02/16/24 08:27 02/16/24 08:28 02/16/24 08:31 Temperature 98.3 F Temperature Source Axillary Pulse Rate 119 H 129 H Pulse Rate [Right Brachial] 119 H Respiratory Rate 20 27 H 23 Blood Pressure 145/81 H 142/71 H Blood Pressure [Right Arm] 145/87 H Blood Pressure Mean 92 94 Blood Pressure Mean [Right Arm] 106 Blood Pressure Source Blood Pressure Source [Right Arm] Automatic Cuff Blood Pressure Position Blood Pressure Position [Right Arm] Supine 02 Sat by Pulse Oximetry 100 99 99 Oxygen Delivery Method Non-Rebreather BiPAP BiPAP Oxygen Flow Rate (LPM) 6 02/16/24 09:20 02/16/24 09:32 02/16/24 10:01 Temperature Temperature Source Pulse Rate 122 H 114 H 124 H Pulse Rate [Right Brachial] Respiratory Rate 20 21 20 Blood Pressure 112/58 L 131/61 136/68 Blood Pressure [Right Arm] Blood Pressure Mean 87 97 90 Blood Pressure Mean [Right Arm] Blood Pressure Source Blood Pressure Source [Right Arm] Blood Pressure Position Blood Pressure Position [Right Arm] 02 Sat by Pulse Oximetry 100 100 99 Oxygen Delivery Method BiPAP BiPAP BiPAP Oxygen Flow Rate (LPM) 50 02/16/24 11:39 02/16/24 11:52 Temperature 98.9 F 98.7 F Temperature Source Oral Axillary Pulse Rate 110 H Pulse Rate [Right Brachial] 100 H Respiratory Rate 20 20 Blood Pressure 141/82 H Blood Pressure [Right Arm] 141/82 H Blood Pressure Mean Blood Pressure Mean [Right Arm] 101 Blood Pressure Source Automatic Cuff Blood Pressure Source [Right Arm] Automatic Cuff Blood Pressure Position Supine Blood Pressure Position [Right Arm] Supine 02 Sat by Pulse Oximetry 94 L Oxygen Delivery Method Nasal Cannula Nasal Cannula Oxygen Flow Rate (LPM) 4 4 Lab Data Labs: Lab Results 02/16/24 08:53: WBC 10.6, RBC 4.19 L, Hgb 14.0, Hct 42.9, MCV 102.5 H, MCH 33.4 H, MCHC 32.6, RDW 13.6, Plt Count 190, MPV 6.6 L, Neut % (Auto) 87.2 H, Lymph % (Auto) 5.7 L, [place] % (Auto) 6.3, Eos % (Auto) 0.6, Baso % (Auto) 0.2, Neut # (Auto) 9.2 H, Lymph # (Auto) 0.6 L, [place] # (Auto) 0.7, Eos # (Auto) 0.1, Baso # (Auto) 0.0, Total Counted 100, Neutrophils % (Manual) 69, Band Neutrophils % 18.0 H, Lymphocytes % (Manual) 9 L, Monocytes % (Manual) 4, Platelet Estimate Normal, Poikilocytosis 1+, Basophilic Stippling 1+, Anisocytosis 1+, Macrocytosis 1+, Spherocytes 1+, D-Dimer 0.49, Sodium 138, Potassium 4.3, Chloride 96 L, Carbon Dioxide 35 H, Anion Gap 11.3, BUN 14, Creatinine 0.80, Estimated Creat Clear 53, Estimated GFR 72, Est GFR ( Amer) 87, Glucose 144 H, Calcium 9.6, Total Bilirubin 0.8, AST 26, ALT 32, Alkaline Phosphatase 74, Troponin I < 0.01, C-Reactive Protein 94.4 H, NT-Pro-B Natriuret Pep 138 H, Total Protein 7.0, Albumin 4.3, Globulin 2.7, Albumin/Globulin Ratio 1.6, Procalcitonin 0.162, TSH 2.82, Thyroxine (T4) 9.3, HIV 1&2 Antibody Rapid Nonreactive 02/16/24 08:55: VBG pH 7.37, VBG pCO2 51.9 H, VBG pO2 65.0 H, VBG HCO3 29.2, VBG Total CO2 30.8 H, VBG O2 Saturation 93.9 H, VBG Base Excess 3.9 H, VBG Lactic Acid 2.4 H 02/16/24 09:21: SARS-CoV-2 (PCR) Not detected, Influenza A Untype (PCR) Not detected, Influenza Type B (PCR) Not detected 02/16/24 10:10: Urine Color Yellow, Urine Appearance Cloudy, Urine pH 7.0, Ur Specific [place] 1.015, Urine Protein 2+ A, Urine Glucose (UA) Negative, Urine Ketones Negative, Urine Blood 3+ A, Urine Nitrate Positive, Urine Bilirubin Negative, Urine Urobilinogen 1.0, Ur Leukocyte Esterase 2+ A, Urine RBC 3-5, Urine WBC 10-20, Ur Squamous Epith Cells None, Urine Bacteria 3+ 02/16/24 11:20: Troponin I < 0.01 02/16/24 08:53 02/16/24 08:53 Response Orders (Tests/Meds): ED MEDICATIONS Generic Name Dose Route Start Last Admin Trade Name Freq PRN Reason Stop Dose Admin Acetaminophen 650 mg 02/16/24 11:19 Acetaminophen 325mg Tab PO 03/17/24 11:18 Q4HP PRN Fever or Mild Pain (1-3) Enoxaparin Sodium 40 mg 02/17/24 09:00 Enoxaparin 40mg/0.4ml Syringe SQ 03/18/24 08:59 DAILY OLGA Ondansetron HCl 4 mg 02/16/24 11:19 Ondansetron 4mg/2ml Vial IV 03/17/24 11:18 Q8HP PRN Nausea Discontinued Medications Generic Name Dose Route Start Last Admin Trade Name Freq PRN Reason Stop Dose Admin Ertapenem 1 gm/ Sodium 50 mls @ 100 mls/hr 02/16/24 11:12 02/16/24 11:27 Chloride IV 02/16/24 11:13 100 mls/hr ONCE ONE Administration ORDERS Category Date Time Status CT head/brain wo con Stat Cat Scan 02/16/24 08:31 Completed CXR --portable [XR chest portable] Stat Exams 02/16/24 08:24 Completed BNP [NT Pro Brain Natriuretic Pep.] Stat Lab 02/16/24 08:53 Completed CBC w/Auto Diff [Complete Blood Count Auto Diff] Stat Lab 02/16/24 08:53 Completed CMP [Comprehensive Metabolic Panel] Stat Lab 02/16/24 08:53 Completed CRP [C-Reactive Protein] Stat Lab 02/16/24 08:53 Completed Complete Blood Count Auto Diff AMLAB Lab 02/17/24 06:00 Ordered Complete Blood Count Auto Diff AMLAB Lab 02/18/24 06:00 Ordered Complete Blood Count Auto Diff AMLAB Lab 02/19/24 06:00 Ordered Complete Blood Count Auto Diff AMLAB Lab 02/20/24 06:00 Ordered Complete Blood Count Auto Diff AMLAB Lab 02/21/24 06:00 Ordered Comprehensive Metabolic Panel AMLAB Lab 02/17/24 06:00 Ordered Comprehensive Metabolic Panel AMLAB Lab 02/18/24 06:00 Ordered Comprehensive Metabolic Panel AMLAB Lab 02/19/24 06:00 Ordered Comprehensive Metabolic Panel AMLAB Lab 02/20/24 06:00 Ordered Comprehensive Metabolic Panel AMLAB Lab 02/21/24 06:00 Ordered D-Dimer Stat Lab 02/16/24 08:53 Completed HIV (1&2) Antibody Rapid Stat Lab 02/16/24 08:53 Completed Hep C Ab with Reflex to RNA Stat Lab 02/16/24 08:53 Received Lactic Acid AMLAB Lab 02/17/24 06:00 Ordered Magnesium AMLAB Lab 02/17/24 06:00 Ordered Phosphorous AMLAB Lab 02/17/24 06:00 Ordered Procalcitonin Stat Lab 02/16/24 08:53 Completed Rapid PCR Covid and Flu A/B Stat Lab 02/16/24 09:21 Completed T4 (Thyroxine) Stat Lab 02/16/24 08:53 Completed TSH [Thyroid Stimulating Hormone] Stat Lab 02/16/24 08:53 Completed Trop I [Troponin I] Stat Lab 02/16/24 08:53 Completed Troponin I Q3H Lab 02/16/24 11:20 Completed Troponin I Q3H Lab 02/16/24 14:30 Ordered UA [Urinalysis and Microscopic] Stat Lab 02/16/24 10:10 Completed Blood Culture Stat Micro 02/16/24 10:45 Received Urine Culture Stat Micro 02/16/24 10:10 Received VBG [Venous Blood Gas] Stat RT 02/16/24 08:55 Completed ECG Data Tracing #1: Attestation: I reviewed this ECG and interpreted as documented below: ECG Narrative: Sinus tachycardia with a ventricular rate of [address] changes concerning for ischemia. No significant changes noted from prior EKG. ECG initial impression date: 02/16/24 ECG initial impression time: 08:58 MDM Narrative Medical Decision Narrative: In summary, this patient is a 63-year-old female presenting to the Emergency Department for evaluation of altered mental status and low oxygen after not having her BiPAP picked up to oxygen overnight. Differential diagnoses considered include but are not limited to CO2 retention, acute hypoxic respiratory failure, obesity hypoventilation syndrome, pneumonia, PE, ACS, dysrhythmia, CHF exacerbation. Ruling out the most morbid conditions drove assessment. It should be noted patient's history includes obesity hypoventilation syndrome, sarcoidosis, CAD, hypertension, hyperlipidemia, asthma, CHF, bilateral lower extremity edema which may or may not be at goal therapy. This complicates all aspects of care by increasing patient's risk for morbidity. I reviewed patient's past medical records and noted previous evaluations recently by pulmonology as well as by neurology. On exam, the patient is lethargic and minimally responsive, however gradually improving with supplemental oxygen. I feel she likely could have CO2 narcosis secondary to the inappropriate use of her BiPAP overnight. Workup included broad lab evaluation to evaluate for infectious, cardiac, and metabolic etiologies of her symptoms as well as CT head without contrast and chest x-ray given her altered mental status. EKG was obtained demonstrates sinus tachycardia without acute ST changes concerning for ischemia.. I independently interpreted CT scan and x-ray prior to the radiologist read and noted no obvious large focal consolidation concerning for pneumonia and no obvious space-occupying lesion in the brain. Please see their read for final interpretation. Labs were obtained that demonstrated actually reassuring blood gas, which is surprising to me. Patient does have neutrophilic predominance, elevated CRP, and urine is concerning for infection.. On reassessment, patient had minimal improvement after placement on BiPAP. She is still able to verbally respond and answer her name. She remains tachycardic with sinus tachycardia on the monitor. She is hemodynamically stable. She has history of multiple antibiotic allergies as well as prior bacteremia and urinary tract infections secondary to drug-resistant organisms, so I had an interactive discussion with pharmacy who advised ertapenem would be good to treat her urinary tract infection. This was ordered after blood cultures were sent. Ultimately I feel she would benefit from admission for continued monitoring given her UTI, altered mental status, and persistent tachycardia. I had an interactive discussion with the hospitalist who admitted the patient in stable condition.
--- NOTE | 2024-02-16 08:56 | ECG_ITS ---
APPROVED REPORT Exam: Resting ECG HR:128 bpm ECG Measurements Heart Rate 128 AXES VT 166 P 67 QRSd 102 QRS -8 QT 405 T 80 QTc 481 Conclusion SINUS TACHYCARDIA Nonspecific ST/T wave changes ABNORMAL ECG Electronically signed by : MICHELLE MORALES, 02/16/2024 14:35:23
[2024-02-16 08:59] LABS: VBG Base Excess 3.9 mmol/L (-2.4-2.3); VBG HCO3 29.2 mmol/L (23-30); VBG Oxygen Saturation 93.9 % (50-70); VBG PH 7.37 mmol/L (7.31-7.41); VBG Total CO2 30.8 mmol/L (23-27)
[2024-02-16 09:02] LABS: Lactate Venous 2.4 mmol/L (0.4-2.0); VBG PCO2 51.9 mmol/L (35-51)
[2024-02-16 09:10] LABS: Basophils % 0.2 % (0.1-2.0); Eosinophils # 0.1 K/mm3 (0.0-0.4); Eosinophils % 0.6 % (0.1-12.0); Hematocrit 42.9 % (37.0-47.0); Lymphocytes # 0.6 K/mm3 (0.7-4.5); Lymphocytes % 5.7 % (10-50); Mean Corpuscular HGB Conc 32.6 g/dL (31.8-35.4); Mean Corpuscular Hemoglobin 33.4 pg (27.0-31.2); Mean Corpuscular Volume 102.5 fl (81-99); Mean Platelet Volume 6.6 fl (7.4-10.4); Monocytes # 0.7 K/mm3 (0.1-1.0); Monocytes % 6.3 % (1.7-9.3); Neutrophils # 9.2 K/mm3 (1.8-7.8); Neutrophils % 87.2 % (37.0-80.0); Platelet Count 190 K/mm3 (142-424); Red Blood Count 4.19 M/mm3 (4.20-5.40); Red Cell Distribution Width 13.6 % (11.5-17.5); White Blood Count 10.6 K/mm3 (4.8-10.8)
[2024-02-16 09:13] LABS: MANUAL DIFFERENTIAL MANUAL DIFFERENTIAL (MANUAL DIFF)
[2024-02-16 09:17] LABS: Albumin Level 4.3 g/dl (3.5-5.0); Chloride 96 mmol/L (98-107); Sodium 138 mmol/L (136-145)
[2024-02-16 09:18] LABS: Potassium 4.3 mmoL/L (3.5-5.1)
[2024-02-16 09:20] LABS: Alanine Aminotransferase 32 U/L (12-78); Albumin/Globulin Ratio 1.6 (1.1-1.8); Alkaline Phosphatase 74 U/L (38-126); Anion Gap 11.3 mEq/L (5-15); Aspartate Amino Transferase 26 U/L (14-36); Bilirubin,Total 0.8 mg/dl (0.2-1.3); Blood Urea Nitrogen 14 mg/dl (7-17); Carbon Dioxide 35 mmol/L (22.0-30.0); Creatinine Clearance Estimated 53 mL/min (50-200); Estimated Glomerular Filt Rate 72 ml/min (>60); GFR (African American) 87 ML/MIN (>60); Globulin 2.7 g/dL (1.3-3.2)
[2024-02-16 09:21] LABS: Calcium 9.6 mg/dl (8.4-10.2); Glucose 144 mg/dl (74-100)
[2024-02-16 09:27] LABS: Coronavirus 19, PCR Not Detected (NotDetected); Influenza A, PCR Not Detected (NotDetected); Influenza B, PCR Not Detected (NotDetected)
[2024-02-16 09:42] LABS: C-Reactive Protein 94.4 mg/L (0-4)
[2024-02-16 09:52] LABS: NT Pro Brain Natriuretic Pep. 138 pg/mL (0-125); Troponin I < 0.01 ng/ml (0.00-0.034)
[2024-02-16 09:57] LABS: Procalcitonin 0.162 ng/mL (0.0-2.0); T4 (Thyroxine) 9.3 ug/dl (5.53-11.0)
[2024-02-16 10:10] LABS: Thyroid Stimulating Hormone 2.82 uIU/mL (0.465-4.68)
[2024-02-16 10:15] LABS: Microscopic, Urine URINE MICROSCOPIC (MICROSCOPIC)
[2024-02-16 10:17] LABS: Appearance,Urine CLOUDY (Clear); Bilirubin,Urine Negative (Negative); Blood, Urine 3+ (Negative); Color,Urine YELLOW (Yellow); Glucose,Urine (UA) Negative (Negative); Ketones,Urine Negative (Negative); Leukocyte Esterase,Urine 2+ (Negative); Nitrate,Urine POSITIVE (Negative); Protein,Urine 2+ (Negative); Specific Gravity, Urine 1.015 (1.005-1.030)
[2024-02-16 10:32] LABS: D-Dimer 0.49 ug/mL (0.0-0.5)
[2024-02-16 10:33] LABS: Bacteria,Urine 3+ /lpf
--- NOTE | 2024-02-16 10:51 | PC.NURSE ---
Blood cultures obtained, blue band placed to R wrist
--- NOTE | 2024-02-16 11:11 | PC.NURSE ---
on phone with hospitalist
--- NOTE | 2024-02-16 11:14 | PC.NURSE ---
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 Dx: AMS and UTI
[2024-02-16] MEDS: ERTAPENEM SODIUM 1 GM in 0.9 % SODIUM CHLORIDE 50 ML IV (11:27)
[2024-02-16 11:31] LABS: Lymphocytes % 9 % (10-50); Monocytes % 4 % (2-9); Neutrophils % 69 % (42-76); Total Cells Counted 100
[2024-02-16 11:33] LABS: Basophilic Stippling 1+; Macrocytosis 1+; Platelet Estimate Normal
[2024-02-16 11:35] LABS: Anisocytosis 1+; Poikilocytosis 1+; Spherocytes 1+
--- NOTE | 2024-02-16 11:40 | SW/DCPLANNER ---
This patient currently resides at [facility] level of care. I will continue to follow up w/ Su from [facility] until patient is medically stable for discharge. Discharge date is unknown at this time.
--- NOTE | 2024-02-16 11:43 | PC.NURSE ---
Report called to second floor KERA Khan at this time. Notified respiratory of moving patient to second floor.
--- NOTE | 2024-02-16 11:55 | PC.NURSE ---
Called [facility] to notify of admission.
[2024-02-16 11:57] LABS: Troponin I < 0.01 ng/ml (0.00-0.034)
--- NOTE | 2024-02-16 11:59 | PC.NURSE ---
arrived by stretcher from ED
--- NOTE | 2024-02-16 12:58 | P.CONPHA_ITS ---
Pharmacy Intervention Comments: HOME MEDICATION LIST VERIFIED USING LIST FROM [facility]
--- NOTE | 2024-02-16 12:58 | HMH.PHAINT1 ---
Pharmacy Intervention Comments: HOME MEDICATION LIST VERIFIED USING LIST FROM [facility]
[2024-02-16 13:01] LABS: Reflex Lactic Add Lactic Reflex
[2024-02-16 13:43] LABS: HIV (1&2) Antibody Rapid NONREACTIVE (NONREACTIVE)
[2024-02-16 13:48] LABS: Lactic Acid Follow Up (RFLX 1) 1.8 mmol/L (0.7-2.1)
[2024-02-16 15:33] LABS: Troponin I < 0.01 ng/ml (0.00-0.034)
[2024-02-16 16:03] LABS: POC Glucose,Bedside 155 (70-110)
--- NOTE | 2024-02-16 16:05 | EXP.HP ---
History of Present Illness *Admission Date: 02/16/24 *Reason for visit:: Acute encephalopathy, UTI *History of present illness: Johanny Molina is a 63-year-old female with a medical history significant for PTSD, obesity hypoventilation syndrome on BiPAP nightly, presented from [facility] for change in mentation after noticing this morning that her BiPAP was not hooked up to oxygen. At baseline, patient is withdrawn, not conversational with staff stating this is from PTSD. Given this, history was not able to be obtained from patient. VBG in the ED was reassuring with pCO2 51.9, pH 7.37. CBC, CMP relatively unremarkable. CRP elevated to 94.4. UA strongly suggestive of UTI. Case was discussed with the ED provider and decision was made to admit patient for acute encephalopathy, UTI [facility] Disclaimer: The information contained in this section may have been updated after the patient was seen, as this information can be updated by other users. Medical History (Updated 02/16/24 @ 17:15 by Edgar Lancaster MD) Sepsis History of MRSA infection of lungs Diabetes type 2, controlled Anxiety Acute hypoxemic respiratory failure Hospital-acquired pneumonia Pill esophagitis Chronic hypercapnic respiratory failure Dysphagia Elevated left ventricular end-diastolic pressure (LVEDP) CAD in [place] artery Hyperlipidemia Vitamin D deficiency, unspecified Obstructive sleep apnea (adult) (pediatric) Acute pancreatitis without necrosis or infection, unspecified Schizoaffective disorder, unspecified Unspecified fracture of left patella, initial encounter for closed fracture Interstitial cystitis Recurrent UTI Hx of bipolar disorder Migraine GERD (gastroesophageal reflux disease) Depression Cancer Mild persistent asthma Personal history of sarcoidosis Multiple pulmonary nodules CHF (congestive heart failure) Anemia HTN (hypertension) Surgical History Status post foot surgery Status post surgical removal of malignant neoplasm of skin History of sinus surgery History of hysterectomy History of dilation and curettage History of section History of colonoscopy Hx of cholecystectomy History of tonsillectomy Family History Other CHF (congestive heart failure) Social History Smoking Status: Never smoker alcohol intake: never substance use type: denies use current occupational status: unemployed Travel in the last 8 weeks: None household members: caregiver housing: assisted living facility caffeine: No Other Medical History Have you received the Flu Vaccine for this season: No Have you received the Pneumonia Vaccine: Yes Meds Home Medications and Allergies Home Medications ?Medication ?Instructions ?Recorded ?Confirmed ?Type acetaminophen 500 mg tablet 500 mg PO Q6HP PRN Pain 04/17/20 02/16/24 History ferrous sulfate 325 mg (65 mg 325 mg PO TID Supplement 04/17/20 02/16/24 History iron) tablet fludrocortisone 0.1 mg tablet 0.1 mg PO DAILY Adrenal disease 04/17/20 02/16/24 History omeprazole 20 mg tablet,delayed 20 mg PO DAILY acid reflux 04/17/20 02/16/24 History release ondansetron HCl 4 mg tablet 4 mg PO TIDP PRN Nausea 04/17/20 02/16/24 History polyethylene glycol 3350 17 gram 17 gm PO DAILY CONSTIPATION 10/12/20 02/16/24 History oral powder packet albuterol sulfate 90 mcg/actuation 2 inh inhalation Q6HP PRN 03/13/21 02/16/24 History aerosol inhaler shortness of breath or wheezing bisacodyl 10 mg rectal suppository 10 mg OR DAILYP PRN Constipation 03/14/21 02/16/24 History lactulose 20 gram/30 mL oral 30 ml PO DAILYP PRN Constipation 03/14/21 02/16/24 History solution linaclotide 290 mcg capsule 290 mcg PO HS Irritable bowel 04/27/22 02/16/24 History (Linzess) syndrome cranberry extract 425 mg capsule 850 mg PO DAILY 04/28/22 02/16/24 History bethanechol chloride 25 mg tablet 25 mg PO QID bladder control 30 04/29/22 02/16/24 Rx days #0 tabs aripiprazole 300 mg suspension, 300 mg IM MONTHLY 01/11/23 02/16/24 History extended rel. intramuscular syringe (Brandon Mcclellan) cetirizine 10 mg tablet (Zyrtec) 10 mg PO DAILY 01/11/23 02/16/24 History icosapent ethyl 1 gram capsule 2 g PO BID 01/11/23 02/16/24 History (Vascepa) azelastine 137 mcg (0.1 %) nasal 1 spray intranasal BID 04/18/23 02/16/24 History spray cholecalciferol (vitamin D3) 125 125 mcg PO DAILY 04/18/23 02/16/24 History mcg (5,000 unit) capsule estradiol 0.01% (0.1 mg/gram) 1 g vaginal .Twice Weekly 04/18/23 02/16/24 History vaginal cream (Estrace) loperamide 2 mg capsule 2 mg PO Q6H PRN Diarrhea 04/18/23 02/16/24 History meclizine 12.5 mg tablet 12.5 mg PO BIDP Dizziness 04/18/23 02/16/24 History montelukast 10 mg tablet 10 mg PO HS 04/18/23 02/16/24 History (Singulair) peg [id number] 1 1 drp ophthalmic (eye) Q6HP PRN 04/18/23 02/16/24 History %-0.2 %-0.2 % eye drops dry eye(s) (Artificial Tears ([id number])) sennosides 8.6 mg-docusate sodium 2 tab-cap PO BID 04/18/23 02/16/24 History 50 mg tablet (Senexon-S) sucralfate 1 gram tablet 1 g PO BID 04/18/23 02/16/24 History terazosin 10 mg capsule 10 mg PO HS 06/15/23 02/16/24 History venlafaxine 150 mg 150 mg PO DAILY 06/15/23 02/16/24 History capsule,extended release 24 hr divalproex 500 mg tablet,delayed 500 mg PO BID 07/13/23 02/16/24 History release fluticasone furoate 100 1 inh inhalation DAILY #60 ea 07/26/23 02/16/24 Rx mcg-vilanterol 25 mcg/dose inhalation powder (Breo Ellipta) nitrofurantoin 100 mg PO BID 08/08/23 02/16/24 History monohydrate/macrocrystals 100 mg capsule (Macrobid) potassium chloride 20 mEq 20 meq PO DAILY 08/08/23 02/16/24 History tablet,extended release dextromethorphan-guaifenesin 10 10 ml PO Q4-6H PRN Cough 09/26/23 02/16/24 History mg-100 mg/5 mL oral liquid phenazopyridine 95 mg tablet (Azo 95 mg PO TID PRN UTI symptoms 09/26/23 02/16/24 History Urinary Pain Relief) magnesium oxide 400 mg PO DAILY #14 tabs 09/27/23 02/16/24 Rx gabapentin 300 mg capsule 300 mg PO TID Pain #90 caps 10/06/23 02/16/24 Rx aspirin 81 mg tablet,delayed 81 mg PO DAILY 02/16/24 02/16/24 History release atorvastatin 20 mg tablet (Lipitor) 20 mg PO HS 02/16/24 02/16/24 History furosemide 40 mg tablet 40 mg PO DAILY 02/16/24 02/16/24 History metoprolol succinate 25 mg 12.5 mg PO HS 02/16/24 02/16/24 History tablet,extended release 24 hr (Toprol XL) New Prescriptions to Start Prescriptions: Allergies Allergy/AdvReac Type Severity Reaction Status Date / Time aspirin Allergy Verified 02/03/24 08:55 azithromycin Allergy Verified 01/25/24 10:15 bupropion Allergy Verified 01/25/24 10:15 [From Wellbutrin SR] Cephalosporins Allergy Verified 01/25/24 10:15 levofloxacin [From Levaquin] Allergy Verified 01/25/24 10:15 erythromycin base AdvReac Mild Verified 01/25/24 10:15 tramadol AdvReac Mild Verified 01/25/24 10:15 influenza vaccine AdvReac Unknown Uncoded 01/18/24 11:20 Exam Data for Last 24 hours Vital signs and Labs for Last 24 Hours: Temp Pulse Resp BP Pulse Ox O2 Del Method O2 Flow Rate 98.7 F 110 H 20 141/82 H 94 L BiPAP 4 02/16/24 11:52 02/16/24 11:52 02/16/24 11:52 02/16/24 11:52 02/16/24 11:39 02/16/24 14:39 02/16/24 11:52 FiO2 50 02/16/24 12:42 Laboratory Results - last 24 hr 02/16/24 08:53: WBC 10.6, RBC 4.19 L, Hgb 14.0, Hct 42.9, MCV 102.5 H, MCH 33.4 H, MCHC 32.6, RDW 13.6, Plt Count 190, MPV 6.6 L, Neut % (Auto) 87.2 H, Lymph % (Auto) 5.7 L, [place] % (Auto) 6.3, Eos % (Auto) 0.6, Baso % (Auto) 0.2, Neut # (Auto) 9.2 H, Lymph # (Auto) 0.6 L, [place] # (Auto) 0.7, Eos # (Auto) 0.1, Baso # (Auto) 0.0, Total Counted 100, Neutrophils % (Manual) 69, Band Neutrophils % 18.0 H, Lymphocytes % (Manual) 9 L, Monocytes % (Manual) 4, Platelet Estimate Normal, Poikilocytosis 1+, Basophilic Stippling 1+, Anisocytosis 1+, Macrocytosis 1+, Spherocytes 1+, D-Dimer 0.49, Sodium 138, Potassium 4.3, Chloride 96 L, Carbon Dioxide 35 H, Anion Gap 11.3, BUN 14, Creatinine 0.80, Estimated Creat Clear 53, Estimated GFR 72, Est GFR ( Amer) 87, Glucose 144 H, Calcium 9.6, Total Bilirubin 0.8, AST 26, ALT 32, Alkaline Phosphatase 74, Troponin I < 0.01, C-Reactive Protein 94.4 H, NT-Pro-B Natriuret Pep 138 H, Total Protein 7.0, Albumin 4.3, Globulin 2.7, Albumin/Globulin Ratio 1.6, Procalcitonin 0.162, TSH 2.82, Thyroxine (T4) 9.3, HIV 1&2 Antibody Rapid Nonreactive 02/16/24 08:55: VBG pH 7.37, VBG pCO2 51.9 H, VBG pO2 65.0 H, VBG HCO3 29.2, VBG Total CO2 30.8 H, VBG O2 Saturation 93.9 H, VBG Base Excess 3.9 H, VBG Lactic Acid 2.4 H 02/16/24 09:21: SARS-CoV-2 (PCR) Not detected, Influenza A Untype (PCR) Not detected, Influenza Type B (PCR) Not detected 02/16/24 10:10: Urine Color Yellow, Urine Appearance Cloudy, Urine pH 7.0, Ur Specific [place] 1.015, Urine Protein 2+ A, Urine Glucose (UA) Negative, Urine Ketones Negative, Urine Blood 3+ A, Urine Nitrate Positive, Urine Bilirubin Negative, Urine Urobilinogen 1.0, Ur Leukocyte Esterase 2+ A, Urine RBC 3-5, Urine WBC 10-20, Ur Squamous Epith Cells None, Urine Bacteria 3+ 02/16/24 11:20: Troponin I < 0.01 02/16/24 13:18: Lactate 1.8 02/16/24 14:30: Troponin I < 0.01 02/16/24 15:53: POC Glucose 155 H I & O for Last 24 hours: Intake & Output 02/13/24 02/14/24 02/15/24 02/16/24 23:59 23:59 23:59 23:59 Weight 158.779 kg Constitutional Constitutional: no acute distress and obese *Routine HEENT Exam Head: Present normocephalic Eye: Present EOMI and PERRL ENT: Present mucous membranes moist *Routine Neck Exam Neck: Present supple; Absent lymphadenopathy *Routine Respiratory Exam Respiratory: Present CTA bilaterally *Routine Cardiovascular Exam Cardiovascular: Present RRR *Routine Abdominal Exam Abdominal: Present soft and normoactive bowel sounds; Absent tenderness *Routine Rectal Exam Rectal:: deferred *Routine Genitalia Exam Genitalia:: deferred *Routine Extremities Exam Extremities: Absent cyanosis, clubbing or edema *Routine Skin Exam Skin: Present warm; Absent rash *Routine Neurological Exam Neurological: Present alert and oriented X3 Routine Psychiatric Exam Psychiatric: Present depressed and anxious Comments: Withdrawn with occasional grimacing. Assessment and Plan *Assessment and plan (1) UTI (urinary tract infection): Status: Acute Category: Medical Code(s): N39.0 - Urinary tract infection, site not specified (2) Sepsis: Status: Acute Category: Medical Code(s): A41.9 - Sepsis, unspecified organism Plan Johanny Molina is a 63-year-old female with a medical history significant for PTSD, obesity hypoventilation syndrome on BiPAP nightly, presented from [facility] for change in mentation after noticing this morning that her BiPAP was not hooked up to oxygen. At baseline, patient is withdrawn, not conversational with staff stating this is from PTSD. Given this, history was not able to be obtained from patient. VBG in the ED was reassuring with pCO2 51.9, pH 7.37. CBC, CMP relatively unremarkable. CRP elevated to 94.4. UA strongly suggestive of UTI. Case was discussed with the ED provider and decision was made to admit patient for acute encephalopathy, UTI. #Acute metabolic encephalopathy, resolved ? Per our staff who has taken care of the patient multiple times in the past, she is at her baseline currently in terms of mentation. - At baseline, patient is withdrawn, not conversational with staff stating this is from PTSD. ? VBG reassuring with no acute retention of pCO2. Saturating appropriately on 3 L nasal cannula. #Sepsis #UTI ? Patient is febrile 100.6, tachycardic up to 129 but no leukocytosis. ? UA positive for LE, blood, bacteria, WBC. CRP elevated to 94.4. ? Patient has undefined allergy to cephalosporins, with multidrug-resistant bacteria in the past. Ertapenem given in the ED. ? 2 L normal saline bolus ordered. ? Continue IV ertapenem pending cultures. ? Follow-up blood, urine cultures. #Obesity hypoventilation syndrome ? BiPAP nightly. #PTSD #Anxiety/depression #Bipolar disorder ? Resumed home Depakote, venlafaxine, terazosin. #Reactive airway disease ? Continue home Breo Ellipta Full code Lovenox
[2024-02-16] MEDS: 0.9 % SODIUM CHLORIDE 1000ML 2,000 ML 1000 ML IV (17:21)
[2024-02-16] MEDS: ONDANSETRON 4MG/2ML VIAL 4 MG IV (19:51)
[2024-02-16] MEDS: ACETAMINOPHEN 325MG TAB 650 MG PO (21:20)
--- NOTE | 2024-02-16 22:20 | PC.NURSE ---
Pt unable to swallow PO medications. Provider notified and ordered to hold those medications at this time.
[2024-02-17] VITALS (8 sets, daily range): BP systolic 110–118; BP diastolic 70–76; PULSE 75–108; RESP 18–24; TEMP 36.8–37.6; O2SAT 91–100; BMI 41.6
[2024-02-17] MEDS: ACETAMINOPHEN 1,000MG/100ML VIAL 1000 MG IV (00:22)
--- NOTE | 2024-02-17 01:42 | PC.NURSE ---
Lab called to report a positive blood culture of E-coli with gram negative rods. Provider notified. No new orders given at this time.
[2024-02-17 05:15] LABS: HCV Ab Non Reactive (Non Reactive)
[2024-02-17 07:09] LABS: Basophils % 0.2 % (0.1-2.0); Hematocrit 37.6 % (37.0-47.0); Lymphocytes # 1.5 K/mm3 (0.7-4.5); Lymphocytes % 12.8 % (10-50); Mean Corpuscular HGB Conc 33.3 g/dL (31.8-35.4); Mean Corpuscular Hemoglobin 33.3 pg (27.0-31.2); Mean Corpuscular Volume 100.2 fl (81-99); Mean Platelet Volume 7.5 fl (7.4-10.4); Monocytes # 1.1 K/mm3 (0.1-1.0); Monocytes % 9.2 % (1.7-9.3); Neutrophils # 9.1 K/mm3 (1.8-7.8); Neutrophils % 77.7 % (37.0-80.0); Platelet Count 156 K/mm3 (142-424); Red Blood Count 3.76 M/mm3 (4.20-5.40); Red Cell Distribution Width 13.6 % (11.5-17.5); White Blood Count 11.8 K/mm3 (4.8-10.8)
[2024-02-17 07:10] LABS: Albumin Level 3.6 g/dl (3.5-5.0); Chloride 102 mmol/L (98-107); Potassium 4.1 mmoL/L (3.5-5.1); Sodium 139 mmol/L (136-145)
[2024-02-17 07:12] LABS: Lactic Acid 1.2 mmol/L (0.7-2.1)
[2024-02-17 07:13] LABS: Alanine Aminotransferase 36 U/L (12-78); Albumin/Globulin Ratio 1.4 (1.1-1.8); Alkaline Phosphatase 61 U/L (38-126); Anion Gap 10.1 mEq/L (5-15); Aspartate Amino Transferase 32 U/L (14-36); Bilirubin,Total 0.9 mg/dl (0.2-1.3); Blood Urea Nitrogen 20 mg/dl (7-17); Calcium 9.2 mg/dl (8.4-10.2); Carbon Dioxide 31 mmol/L (22.0-30.0); Creatinine Clearance Estimated 44 mL/min (50-200); Estimated Glomerular Filt Rate 45 ml/min (>60); GFR (African American) 55 ML/MIN (>60); Globulin 2.5 g/dL (1.3-3.2); Glucose 121 mg/dl (74-100); Phosphorous 3.1 mg/dl (2.5-4.5); Total Protein,Serum 6.1 g/dl (6.3-8.2)
[2024-02-17 07:14] LABS: Magnesium 1.6 mg/dl (1.6-2.3)
[2024-02-17 07:18] LABS: Hemoglobin 12.7 g/dL (12.2-16.2)
[2024-02-17] MEDS: ONDANSETRON 4MG/2ML VIAL 4 MG IV (08:47)
[2024-02-17] MEDS: FLUTICASONE/SALMETEROL 250/50MCG DISKUS 1 PUFF IH ×2 (08:57→18:05)
[2024-02-17] MEDS: ERTAPENEM SODIUM 1 GM in 0.9 % SODIUM CHLORIDE 50 ML IV (09:52)
[2024-02-17] MEDS: VENLAFAXINE XR 75MG CAPSULE 75 MG PO ×2 (09:52→21:01)
[2024-02-17] MEDS: FUROSEMIDE 40 MG TABLET PO (09:52)
[2024-02-17] MEDS: DIVALPROEX 500MG (Delayed-Release) TABLET 500 MG PO ×2 (09:52→21:01)
[2024-02-17] MEDS: ASPIRIN EC 81MG TABLET 81 MG PO (09:52)
[2024-02-17] MEDS: ENOXAPARIN 40MG/0.4ML SYRINGE 40 MG SQ ×2 (09:56→21:02)
[2024-02-17 10:01] LABS: Folate 3.45 ng/mL
--- NOTE | 2024-02-17 11:33 | P.PN_ITS ---
Subjective *Date: 02/17/24 *Time: 11:33 Interval history: Patient resting comfortably in bed without acute distress. She is mostly not conversational due to PTSD. Exam Data for Last 24 hours Vital signs and Labs for Last 24 Hours: Temp Pulse Resp BP Pulse Ox O2 Del Method O2 Flow Rate 99.6 F 108 H 19 110/74 98 BiPAP 3 02/17/24 08:00 02/17/24 08:00 02/17/24 08:00 02/17/24 08:00 02/17/24 08:58 02/17/24 08:58 02/17/24 01:00 FiO2 50 02/17/24 08:58 Laboratory Results - last 24 hr 02/16/24 08:53: Total Counted 100, Neutrophils % (Manual) 69, Band Neutrophils % 18.0 H, Lymphocytes % (Manual) 9 L, Monocytes % (Manual) 4, Platelet Estimate Normal, Poikilocytosis 1+, Basophilic Stippling 1+, Anisocytosis 1+, Macrocytosis 1+, Spherocytes 1+, Hepatitis C Antibody Non reactive, HIV 1&2 Antibody Rapid Nonreactive 02/16/24 10:10: Urine Color Yellow, Urine Appearance Cloudy, Urine pH 7.0, Ur Specific [place] 1.015, Urine Protein 2+ A, Urine Glucose (UA) Negative, Urine Ketones Negative, Urine Blood 3+ A, Urine Nitrate Positive, Urine Bilirubin Negative, Urine Urobilinogen 1.0, Ur Leukocyte Esterase 2+ A, Urine RBC 3-5, Urine WBC 10-20, Ur Squamous Epith Cells None, Urine Bacteria 3+ 02/16/24 11:20: Troponin I < 0.01 02/16/24 13:18: Lactate 1.8 02/16/24 14:30: Troponin I < 0.01 02/16/24 15:53: POC Glucose 155 H 02/17/24 06:48: WBC 11.8 H, RBC 3.76 L, Hgb 12.7, Hct 37.6, MCV 100.2 H, MCH 33.3 H, MCHC 33.3, RDW 13.6, Plt Count 156, MPV 7.5, Neut % (Auto) 77.7, Lymph % (Auto) 12.8, [place] % (Auto) 9.2, Eos % (Auto) 0.0 L, Baso % (Auto) 0.2, Neut # (Auto) 9.1 H, Lymph # (Auto) 1.5, [place] # (Auto) 1.1 H, Eos # (Auto) 0.0, Baso # (Auto) 0.0, Sodium 139, Potassium 4.1, Chloride 102, Carbon Dioxide 31 H, Anion Gap 10.1, BUN 20 H D, Creatinine 1.20 H D, Estimated Creat Clear 44, Estimated GFR 45 L, Est GFR ( Amer) 55 L D, Glucose 121 H, Lactate 1.2, Calcium 9.2, Phosphorus 3.1, Magnesium 1.6, Total Bilirubin 0.9, AST 32, ALT 36, Alkaline Phosphatase 61, Total Protein 6.1 L, Albumin 3.6 D, Globulin 2.5, Albumin/Globulin Ratio 1.4, Folate 3.45, Procalcitonin 0.880 I & O for Last 24 hours: Intake & Output 02/14/24 02/15/24 02/16/24 02/17/24 23:59 23:59 23:59 23:59 Intake Total 1999 0 / 0 Output Total 650 / 750 100 / 100 Balance 1350 / 1250 -100 / -100 Weight 158.779 kg 117.651 kg Microbiology Reports for the Last 24 Hours: Microbiology 02/16/24 10:45 Blood Blood Culture - Preliminary NO GROWTH AFTER 24 HOURS 02/16/24 10:50 Blood Blood Culture - Preliminary Gram Negative Rods 02/16/24 10:10 Urine,Catheterized Urine Culture - Preliminary Gram Negative Rods Constitutional Comments: Constitutional Constitutional: no acute distress and obese *Routine HEENT Exam Head: Present normocephalic Eye: Present EOMI and PERRL ENT: Present mucous membranes moist *Routine Neck Exam Neck: Present supple; Absent lymphadenopathy *Routine Respiratory Exam Respiratory: Present CTA bilaterally *Routine Cardiovascular Exam Cardiovascular: Present RRR *Routine Abdominal Exam Abdominal: Present soft and normoactive bowel sounds; Absent tenderness *Routine Rectal Exam Rectal:: deferred *Routine Genitalia Exam Genitalia:: deferred *Routine Extremities Exam Extremities: Absent cyanosis, clubbing or edema *Routine Skin Exam Skin: Present warm; Absent rash *Routine Neurological Exam Neurological: Present alert Routine Psychiatric Exam Psychiatric: Present anxious Comments: Withdrawn with occasional grimacing. Assessment and Plan *Assessment and plan (1) UTI (urinary tract infection): Status: Acute Category: Medical Code(s): N39.0 - Urinary tract infection, site not specified (2) Sepsis: Status: Acute Category: Medical Code(s): A41.9 - Sepsis, unspecified organism Plan Johanny Molina is a 63-year-old female with a medical history significant for PTSD, obesity hypoventilation syndrome on BiPAP nightly, presented from [facility] for change in mentation after noticing this morning that her BiPAP was not hooked up to oxygen. At baseline, patient is withdrawn, not conversational with staff stating this is from PTSD. Given this, history was not able to be obtained from patient. VBG in the ED was reassuring with pCO2 51.9, pH 7.37. CBC, CMP relatively unremarkable. CRP elevated to 94.4. UA strongly suggestive of UTI. Case was discussed with the ED provider and decision was made to admit patient for acute encephalopathy, UTI. #Sepsis #UTI ? Patient continues to be febrile, tachycardic, with leukocytosis today. She is mostly nonconversational due to PTSD, see below. ? UA positive for LE, blood, bacteria, WBC. CRP elevated to 94.4. ? WBC 10.6-11.8 today. ? Patient has undefined allergy to cephalosporins, with multidrug-resistant bacteria in the past. Ertapenem given in the ED. ? Started LR at 100 mL/h. 2 L LR bolus had been given. ? Continue IV ertapenem pending cultures. ? Urine culture growing gram-negative rods, ending speciation and sensitivities. ? Blood culture growing E. coli but only in 1/2 bottles, pending sensitivities. Follow-up repeat blood cultures. ? Follow-up WBC, CRP, procalcitonin tomorrow morning #Acute metabolic encephalopathy, resolved ? Per our staff who has taken care of the patient multiple times in the past, she is at her baseline currently in terms of mentation. ? CT head unremarkable for acute findings on admission. - At baseline, patient is withdrawn, not conversational with staff stating this is from PTSD. ? VBG reassuring on admission with no acute retention of pCO2. Saturating appropriately on 3 L nasal cannula, and on BiPAP nightly. #Obesity hypoventilation syndrome ? BiPAP nightly. #PTSD #Anxiety/depression #Bipolar disorder ? Resumed home Depakote, venlafaxine, terazosin. #Reactive airway disease ? Continue home Breo Ellipta Full code Lovenox
--- NOTE | 2024-02-17 16:14 | PC.NURSE ---
PT IS ALERT BUT CONFUSED. SHE HAS BEEN VERY TIRED FOR MOST OF SHIFT. WAS ABLE TO TAKE PATIENT OF BIPAP AND SHE HAS TOLERATED 3LNC T/O THE SHIFT TODAY. SHE DID C/O NAUSEA ONCE AND WAS TREATED WITH PRN ZOFRAN WITH GOOD EFFECTIVENESS. PUREWICK IN PLACE R/T INCONTINENCE.
[2024-02-17] MEDS: TERAZOSIN 5MG CAPSULE 10 MG PO (21:01)
[2024-02-17] MEDS: METOPROLOL SUCCINATE XL 25MG TABLET 12.5 MG PO (21:01)
[2024-02-17] MEDS: ATORVASTATIN 20MG TABLET 20 MG PO (21:01)
[2024-02-18] VITALS (8 sets, daily range): BP systolic 109–131; BP diastolic 64–78; PULSE 62–104; RESP 17–23; TEMP 36.6–37; O2SAT 96–100; BMI 41.6
[2024-02-18] MEDS: LACTATED RINGERS 1000ML 1,000 ML 100 ML IV (03:33)
[2024-02-18 06:25] LABS: Alanine Aminotransferase 40 U/L (12-78); Albumin Level 3.3 g/dl (3.5-5.0); Albumin/Globulin Ratio 1.4 (1.1-1.8); Alkaline Phosphatase 51 U/L (38-126); Anion Gap 6.6 mEq/L (5-15); Aspartate Amino Transferase 50 U/L (14-36); Bilirubin,Total 0.7 mg/dl (0.2-1.3); Blood Urea Nitrogen 20 mg/dl (7-17); Carbon Dioxide 31 mmol/L (22.0-30.0); Chloride 103 mmol/L (98-107); Creatinine Clearance Estimated 53 mL/min (50-200); Estimated Glomerular Filt Rate 63 ml/min (>60); GFR (African American) 76 ML/MIN (>60); Globulin 2.4 g/dL (1.3-3.2); Glucose 91 mg/dl (74-100); Potassium 3.6 mmoL/L (3.5-5.1); Sodium 137 mmol/L (136-145); Total Protein,Serum 5.7 g/dl (6.3-8.2)
[2024-02-18] MEDS: FLUTICASONE/SALMETEROL 250/50MCG DISKUS 1 PUFF IH ×2 (06:31→21:01)
[2024-02-18 06:52] LABS: Basophils % 0.5 % (0.1-2.0); Eosinophils % 0.5 % (0.1-12.0); Hematocrit 33.3 % (37.0-47.0); Lymphocytes # 1.3 K/mm3 (0.7-4.5); Lymphocytes % 19.3 % (10-50); Mean Corpuscular HGB Conc 34.1 g/dL (31.8-35.4); Mean Corpuscular Hemoglobin 33.3 pg (27.0-31.2); Mean Corpuscular Volume 97.5 fl (81-99); Mean Platelet Volume 7.5 fl (7.4-10.4); Monocytes # 0.5 K/mm3 (0.1-1.0); Monocytes % 7.7 % (1.7-9.3); Neutrophils # 4.9 K/mm3 (1.8-7.8); Neutrophils % 71.9 % (37.0-80.0); Platelet Count 154 K/mm3 (142-424); Red Blood Count 3.42 M/mm3 (4.20-5.40); Red Cell Distribution Width 13.7 % (11.5-17.5); White Blood Count 6.8 K/mm3 (4.8-10.8)
[2024-02-18 07:20] LABS: Hemoglobin 11.4 g/dL (12.2-16.2)
[2024-02-18 07:38] LABS: 25-OH Vitamin D, Total 64.3 ng/mL (30-100); C-Reactive Protein 231.8 mg/L (0-4)
[2024-02-18 07:50] LABS: Procalcitonin 0.432 ng/mL (0.0-2.0)
[2024-02-18 08:19] LABS: Erythrocyte Sedimentation Rate 117 mm/hr (0-30)
[2024-02-18] MEDS: VENLAFAXINE XR 75MG CAPSULE 75 MG PO ×2 (08:19→21:17)
[2024-02-18] MEDS: ENOXAPARIN 40MG/0.4ML SYRINGE 40 MG SQ ×2 (08:19→21:17)
[2024-02-18] MEDS: ASPIRIN EC 81MG TABLET 81 MG PO (08:19)
[2024-02-18] MEDS: DIVALPROEX 500MG (Delayed-Release) TABLET 500 MG PO ×2 (08:19→21:16)
[2024-02-18] MEDS: FUROSEMIDE 40 MG TABLET PO (08:19)
[2024-02-18] MEDS: ERTAPENEM SODIUM 1 GM in 0.9 % SODIUM CHLORIDE 50 ML IV (08:19)
[2024-02-18] MEDS: FOLIC ACID 1MG TABLET 1 MG PO (08:19)
[2024-02-18 08:20] LABS: Vitamin B12 780 pg/mL (239-931)
--- NOTE | 2024-02-18 10:46 | CARE MANAGER ---
Patient admitted with UTI and sepsis. Temp 102.8 and HR > 120 sustained. Meets inpatient criteria per [facility].
[2024-02-18] MEDS: ACETAMINOPHEN 325MG TAB 650 MG PO (13:13)
[2024-02-18] MEDS: PANTOPRAZOLE 40MG TABLET 40 MG PO ×2 (14:57→21:17)
[2024-02-18] MEDS: POLYETHYLENE GLYCOL 3350 17 GM PACKET PO (14:57)
[2024-02-18] MEDS: SUCRALFATE 1GM TABLET 1 GM PO ×2 (14:58→21:17)
[2024-02-18] MEDS: FLUDROCORTISONE 0.1MG TABLET 0.1 MG PO (14:59)
[2024-02-18] MEDS: BETHANECHOL 25 MG PO ×3 (15:00→21:16)
--- NOTE | 2024-02-18 15:33 | P.PN_ITS ---
Subjective *Date: 02/18/24 *Time: 15:33 Interval history: Patient is a lot more alert, oriented today. Very conversational and endearing. No acute concerns other than restarting home meds for acid reflux, constipation, etc. Exam Data for Last 24 hours Vital signs and Labs for Last 24 Hours: Temp Pulse Resp BP Pulse Ox O2 Del Method O2 Flow Rate 97.9 F 104 H 19 128/76 100 Nasal Cannula 3 02/18/24 08:00 02/18/24 08:00 02/18/24 08:00 02/18/24 08:00 02/18/24 08:00 02/18/24 13:00 02/18/24 13:00 FiO2 40 02/18/24 01:44 Laboratory Results - last 24 hr 02/18/24 05:42: WBC 6.8 D, RBC 3.42 L, Hgb 11.4 L D, Hct 33.3 L, MCV 97.5, MCH 33.3 H, MCHC 34.1, RDW 13.7, Plt Count 154, MPV 7.5, Neut % (Auto) 71.9, Lymph % (Auto) 19.3, [place] % (Auto) 7.7, Eos % (Auto) 0.5, Baso % (Auto) 0.5, Neut # (Auto) 4.9, Lymph # (Auto) 1.3, [place] # (Auto) 0.5, Eos # (Auto) 0.0, Baso # (Auto) 0.0, ESR 117 H, Sodium 137, Potassium 3.6, Chloride 103, Carbon Dioxide 31 H, Anion Gap 6.6, BUN 20 H, Creatinine 0.90 D, Estimated Creat Clear 53, Estimated GFR 63, Est GFR ( Amer) 76 D, Glucose 91 D, Calcium 9.0, Total Bilirubin 0.7, AST 50 H D, ALT 40, Alkaline Phosphatase 51, C-Reactive Protein 231.8 H, Total Protein 5.7 L, Albumin 3.3 L, Globulin 2.4, Albumin/Globulin Ratio 1.4, Vitamin B12 780, 25-OH Vitamin D Total 64.3 02/18/24 : Procalcitonin 0.432 I & O for Last 24 hours: Intake & Output 02/15/24 02/16/24 02/17/24 02/18/24 23:59 23:59 23:59 23:59 Intake Total 1999 / 1999 180 / 180 1200 / 1200 Output Total 650 / 750 1650 / 1650 500 / 500 Balance 1350 / 1250 -1470 / -1470 700 / 700 Weight 158.779 kg 117.651 kg 117.651 kg Microbiology Reports for the Last 24 Hours: Microbiology 02/17/24 13:17 Blood Blood Culture - Preliminary NO GROWTH AFTER 24 HOURS 02/16/24 10:45 Blood Blood Culture - Preliminary NO GROWTH AFTER 48 HOURS 02/16/24 10:50 Blood Blood Culture - Final Escherichia coli 02/16/24 10:10 Urine,Catheterized Urine Culture - Final Escherichia coli Assessment and Plan *Assessment and plan (1) UTI (urinary tract infection): Status: Acute Category: Medical Code(s): N39.0 - Urinary tract infection, site not specified (2) Sepsis: Status: Acute Category: Medical Code(s): A41.9 - Sepsis, unspecified organism Plan Johanny Molina is a 63-year-old female with a medical history significant for PTSD, obesity hypoventilation syndrome on BiPAP nightly, presented from [facility] for change in mentation after noticing this morning that her BiPAP was not hooked up to oxygen. At baseline, patient is withdrawn, not conversational with staff stating this is from PTSD. Given this, history was not able to be obtained from patient. VBG in the ED was reassuring with pCO2 51.9, pH 7.37. CBC, CMP relatively unremarkable. CRP elevated to 94.4. UA strongly suggestive of UTI. Case was discussed with the ED provider and decision was made to admit patient for acute encephalopathy, UTI. #Acute metabolic encephalopathy, resolved #Sepsis, resolved #UTI #Gram-negative bacteremia ? Patient is a lot more alert, oriented today. Very conversational and endearing. No acute concerns other than restarting home meds for acid reflux, constipation, etc. ? Initial UA positive for LE, blood, bacteria, WBC. CT head unremarkable for acute findings on admission. ? Leukocytosis resolved to 6.8 today. ? Urine, blood cultures revealed E. coli with sensitivities to Zosyn, ceftriaxone among others. Patient has an undefined allergy to cephalosporins. ? De-escalated from ertapenem to Zosyn today. ? Plan to de-escalate to oral cefdinir tomorrow once cephalosporin allergy is clarified. ? CRP increased from 94-231.8 today. Continue to follow. Patient is clinically much better however. #Obesity hypoventilation syndrome ? BiPAP nightly. #PTSD #Anxiety/depression #Bipolar disorder ? Resumed home Depakote, venlafaxine, terazosin. #Reactive airway disease ? Continue home Breo Ellipta #GERD #Constipation ? Resumed home PPI, Linzess Full code Lovenox
--- NOTE | 2024-02-18 16:51 | PC.NURSE ---
Addendum entered by Edgar Campos RN 02/18/24 16:53: c/o headache this afternoon and was medicated with prn tylenol with good effectiveness. Original Note: pt is more alert and oriented today. able to answer questions appropriately and follow commands. tolerating po intake well. incontinent of bowel and bladder with purewick in place. q2 turn this shift. still requiring 3lnc for o2 support.
[2024-02-18] MEDS: MONTELUKAST SODIUM 10MG TAB 10 MG PO (21:16)
[2024-02-18] MEDS: GABAPENTIN 300MG CAPSULE 300 MG PO (21:17)
[2024-02-18] MEDS: ATORVASTATIN 20MG TABLET 20 MG PO (21:17)
[2024-02-18] MEDS: METOPROLOL SUCCINATE XL 25MG TABLET 12.5 MG PO (21:17)
[2024-02-18] MEDS: SENNOSIDES 8.6MG/DOCUSATE 50MG TABLET 2 TAB PO (21:17)
[2024-02-18] MEDS: TERAZOSIN 5MG CAPSULE 10 MG PO (21:17)
[2024-02-19] VITALS: BP 131/79; PULSE 74; RESP 16; TEMP 36.7; O2SAT 98
[2024-02-19 04:00] VITALS: BP 100/69; PULSE 62; RESP 16; TEMP 36.5; O2SAT 97; BMI 42.3
[2024-02-19] MEDS: FLUTICASONE/SALMETEROL 250/50MCG DISKUS 1 PUFF IH (06:19)
[2024-02-19 07:32] LABS: Basophils % 0.5 % (0.1-2.0); Eosinophils # 0.1 K/mm3 (0.0-0.4); Eosinophils % 2.6 % (0.1-12.0); Hematocrit 32.6 % (37.0-47.0); Hemoglobin 11.2 g/dL (12.2-16.2); Lymphocytes # 1.8 K/mm3 (0.7-4.5); Lymphocytes % 37.8 % (10-50); Mean Corpuscular HGB Conc 34.4 g/dL (31.8-35.4); Mean Corpuscular Hemoglobin 33.6 pg (27.0-31.2); Mean Corpuscular Volume 97.5 fl (81-99); Mean Platelet Volume 7.4 fl (7.4-10.4); Monocytes # 0.3 K/mm3 (0.1-1.0); Monocytes % 7.1 % (1.7-9.3); Neutrophils # 2.4 K/mm3 (1.8-7.8); Neutrophils % 51.9 % (37.0-80.0); Platelet Count 179 K/mm3 (142-424); Red Blood Count 3.35 M/mm3 (4.20-5.40); Red Cell Distribution Width 13.5 % (11.5-17.5); White Blood Count 4.6 K/mm3 (4.8-10.8)
[2024-02-19 07:45] LABS: Alanine Aminotransferase 41 U/L (12-78); Albumin Level 3.2 g/dl (3.5-5.0); Albumin/Globulin Ratio 1.3 (1.1-1.8); Alkaline Phosphatase 47 U/L (38-126); Aspartate Amino Transferase 41 U/L (14-36); Bilirubin,Total 0.6 mg/dl (0.2-1.3); Blood Urea Nitrogen 14 mg/dl (7-17); Calcium 8.8 mg/dl (8.4-10.2); Carbon Dioxide 32 mmol/L (22.0-30.0); Chloride 101 mmol/L (98-107); Creatinine Clearance Estimated 53 mL/min (50-200); Estimated Glomerular Filt Rate 72 ml/min (>60); GFR (African American) 87 ML/MIN (>60); Globulin 2.4 g/dL (1.3-3.2); Glucose 93 mg/dl (74-100); Sodium 136 mmol/L (136-145); Total Protein,Serum 5.6 g/dl (6.3-8.2)
[2024-02-19 07:50] LABS: C-Reactive Protein 103.8 mg/L (0-4)
[2024-02-19 08:00] VITALS: BP 123/86; PULSE 66; RESP 17; TEMP 36.4; O2SAT 99
[2024-02-19 08:24] LABS: Anion Gap 6.2 mEq/L (5-15); Potassium 3.2 mmoL/L (3.5-5.1)
[2024-02-19] MEDS: POLYETHYLENE GLYCOL 3350 17 GM PACKET PO (08:26)
[2024-02-19] MEDS: PIPERCILLIN/TAZO 3.375 GM in 0.9 % SODIUM CHLORIDE 50 ML IV (08:26)
[2024-02-19] MEDS: VENLAFAXINE XR 75MG CAPSULE 75 MG PO (08:27)
[2024-02-19] MEDS: FOLIC ACID 1MG TABLET 1 MG PO (08:27)
[2024-02-19] MEDS: SENNOSIDES 8.6MG/DOCUSATE 50MG TABLET 2 TAB PO (08:27)
[2024-02-19] MEDS: BETHANECHOL 25 MG PO ×2 (08:27→14:28)
[2024-02-19] MEDS: ASPIRIN EC 81MG TABLET 81 MG PO (08:27)
[2024-02-19] MEDS: GABAPENTIN 300MG CAPSULE 300 MG PO ×2 (08:27→14:14)
[2024-02-19] MEDS: DIVALPROEX 500MG (Delayed-Release) TABLET 500 MG PO (08:27)
[2024-02-19] MEDS: ENOXAPARIN 40MG/0.4ML SYRINGE 40 MG SQ (08:27)
[2024-02-19] MEDS: SUCRALFATE 1GM TABLET 1 GM PO (08:27)
[2024-02-19] MEDS: POTASSIUM CHLORIDE 20MEQ TAB 20 MEQ PO (08:27)
[2024-02-19] MEDS: FUROSEMIDE 40 MG TABLET PO (08:27)
[2024-02-19] MEDS: FLUDROCORTISONE 0.1MG TABLET 0.1 MG PO (08:28)
[2024-02-19 09:07] LABS: Magnesium 1.3 mg/dl (1.6-2.3)
[2024-02-19] MEDS: CEFDINIR 300MG CAPSULE 300 MG PO (11:32)
[2024-02-19 12:00] VITALS: BP 116/72; PULSE 73; RESP 20; TEMP 36.6; O2SAT 100
--- NOTE | 2024-02-19 13:33 | EXP.DC.SUM ---
General Admission date:: 02/16/24 Discharge date: 02/19/24 HPI HPI HPI: Johanny Molina is a 63-year-old female with a medical history significant for PTSD, obesity hypoventilation syndrome on BiPAP nightly, presented from [facility] for change in mentation after noticing this morning that her BiPAP was not hooked up to oxygen. At baseline, patient is withdrawn, not conversational with staff stating this is from PTSD. Given this, history was not able to be obtained from patient. VBG in the ED was reassuring with pCO2 51.9, pH 7.37. CBC, CMP relatively unremarkable. CRP elevated to 94.4. UA strongly suggestive of UTI. Case was discussed with the ED provider and decision was made to admit patient for acute encephalopathy, UTI. Hospital Course Hospital Course Hospital Course: Johanny Molina is a 63-year-old female with a medical history significant for PTSD, obesity hypoventilation syndrome on BiPAP nightly, presented from [facility] for change in mentation after noticing this morning that her BiPAP was not hooked up to oxygen. At baseline, patient is withdrawn, not conversational with staff stating this is from PTSD. Given this, history was not able to be obtained from patient. VBG in the ED was reassuring with pCO2 51.9, pH 7.37. CBC, CMP relatively unremarkable. CRP elevated to 94.4. UA strongly suggestive of UTI. Case was discussed with the ED provider and decision was made to admit patient for acute encephalopathy, UTI. #Acute metabolic encephalopathy, resolved #Sepsis, resolved #UTI # E. coli bacteremia ? Patient continues to be alert, oriented today. Very conversational and endearing. No acute concerns. ? Initial UA positive for LE, blood, bacteria, WBC. CT head unremarkable for acute findings on admission. ?Patient has a history of multidrug-resistant UTIs, initially started on ertapenem and transitioned to Zosyn. ? Clinically improved with this regimen. ? Urine, blood cultures revealed E. coli with sensitivities to Zosyn, ceftriaxone among a few others. - Patient has an undefined apparent allergy to cephalosporins however tolerated cefdinir without issues. ? Repeat blood cultures showing no growth to date at 24 hours. ? Discharged with 11 more days of cefdinir 300 mg twice daily for total of 14 days for gram-negative bacteremia. #Obesity hypoventilation syndrome ? BiPAP nightly with settings of 22/8, RR 22, FiO2 40%. #PTSD #Anxiety/depression #Bipolar disorder ? Resumed home Depakote, venlafaxine, terazosin. #Reactive airway disease ? Continue home Breo Ellipta #GERD #Constipation ? Resumed home PPI, Linzess Exam Data for Last 24 hours Vital signs and Labs for Last 24 Hours: Temp Pulse Resp BP Pulse Ox O2 Del Method O2 Flow Rate 97.8 F 73 20 116/72 100 Nasal Cannula 4 02/19/24 12:00 02/19/24 12:00 02/19/24 12:00 02/19/24 12:00 02/19/24 12:00 02/19/24 12:00 02/19/24 12:00 FiO2 32 02/18/24 18:55 Laboratory Results - last 24 hr 02/19/24 06:57: WBC 4.6 L D, RBC 3.35 L, Hgb 11.2 L, Hct 32.6 L, MCV 97.5, MCH 33.6 H, MCHC 34.4, RDW 13.5, Plt Count 179, MPV 7.4, Neut % (Auto) 51.9, Lymph % (Auto) 37.8, [place] % (Auto) 7.1, Eos % (Auto) 2.6, Baso % (Auto) 0.5, Neut # (Auto) 2.4, Lymph # (Auto) 1.8, [place] # (Auto) 0.3, Eos # (Auto) 0.1, Baso # (Auto) 0.0, Sodium 136, Potassium 3.2 L, Chloride 101, Carbon Dioxide 32 H, Anion Gap 6.2, BUN 14 D, Creatinine 0.80, Estimated Creat Clear 53, Estimated GFR 72, Est GFR ( Amer) 87, Glucose 93, Calcium 8.8, Magnesium 1.3 L D, Total Bilirubin 0.6, AST 41 H, ALT 41, Alkaline Phosphatase 47, C-Reactive Protein 103.8 H, Total Protein 5.6 L, Albumin 3.2 L, Globulin 2.4, Albumin/Globulin Ratio 1.3 I & O for Last 24 hours: Intake & Output 02/16/24 02/17/24 02/18/24 02/19/24 23:59 23:59 23:59 23:59 Intake Total 1999 180 / 180 2520 / 2880 600 / 600 Output Total 650 / 750 1650 / 1650 1300 / 1300 195 / 195 Balance 1350 / 1250 -1470 / -1470 1220 / 1580 -1351 / -1351 Weight 158.779 kg 117.651 kg 117.651 kg 119.386 kg Microbiology Reports for the Last 24 Hours: Microbiology 02/17/24 13:17 Blood Blood Culture - Preliminary NO GROWTH AFTER 24 HOURS 02/16/24 10:45 Blood Blood Culture - Preliminary NO GROWTH AFTER 48 HOURS Constitutional Comments: Constitutional Constitutional: no acute distress and obese *Routine HEENT Exam Head: Present normocephalic Eye: Present EOMI and PERRL ENT: Present mucous membranes moist *Routine Neck Exam Neck: Present supple; Absent lymphadenopathy *Routine Respiratory Exam Respiratory: Present CTA bilaterally *Routine Cardiovascular Exam Cardiovascular: Present RRR *Routine Abdominal Exam Abdominal: Present soft and normoactive bowel sounds; Absent tenderness *Routine Rectal Exam Rectal:: deferred *Routine Genitalia Exam Genitalia:: deferred *Routine Extremities Exam Extremities: Absent cyanosis, clubbing or edema *Routine Skin Exam Skin: Present warm; Absent rash *Routine Neurological Exam Neurological: Present alert Routine Psychiatric Exam Psychiatric: Content and endearing. Results Data Completed and Pending Labs on day of discharge: Labs from last 24 hours 02/19/24 06:57 WBC 4.6 L D RBC 3.35 L Hgb 11.2 L Hct 32.6 L MCV 97.5 MCH 33.6 H MCHC 34.4 RDW 13.5 Plt Count 179 MPV 7.4 Neut % (Auto) 51.9 Lymph % (Auto) 37.8 [place] % (Auto) 7.1 Eos % (Auto) 2.6 Baso % (Auto) 0.5 Neut # (Auto) 2.4 Lymph # (Auto) 1.8 [place] # (Auto) 0.3 Eos # (Auto) 0.1 Baso # (Auto) 0.0 Sodium 136 Potassium 3.2 L Chloride 101 Carbon Dioxide 32 H Anion Gap 6.2 BUN 14 D Creatinine 0.80 Estimated Creat Clear 53 Estimated GFR 72 Est GFR ( Amer) 87 Glucose 93 Calcium 8.8 Magnesium 1.3 L D Total Bilirubin 0.6 AST 41 H ALT 41 Alkaline Phosphatase 47 C-Reactive Protein 103.8 H Total Protein 5.6 L Albumin 3.2 L Globulin 2.4 Albumin/Globulin Ratio 1.3 Preliminary micro results at discharge 02/17/24 13:17 Blood Culture - Preliminary Blood NO GROWTH AFTER 24 HOURS 02/16/24 10:45 Blood Culture - Preliminary Blood NO GROWTH AFTER 48 HOURS DS: Diagnosis Discharge Diagnosis (1) UTI (urinary tract infection): Status: Acute Code(s): N39.0 - Urinary tract infection, site not specified (2) Sepsis: Status: Acute Code(s): A41.9 - Sepsis, unspecified organism Meds Home Medications and Allergies Home Medications ?Medication ?Instructions ?Recorded ?Confirmed ?Type acetaminophen 500 mg tablet 500 mg PO Q6HP PRN Pain 04/17/20 02/16/24 History ferrous sulfate 325 mg (65 mg 325 mg PO TID Supplement 04/17/20 02/16/24 History iron) tablet fludrocortisone 0.1 mg tablet 0.1 mg PO DAILY Adrenal disease 04/17/20 02/16/24 History omeprazole 20 mg tablet,delayed 20 mg PO DAILY acid reflux 04/17/20 02/16/24 History release ondansetron HCl 4 mg tablet 4 mg PO TIDP PRN Nausea 04/17/20 02/16/24 History polyethylene glycol 3350 17 gram 17 gm PO DAILY CONSTIPATION 10/12/20 02/16/24 History oral powder packet albuterol sulfate 90 mcg/actuation 2 inh inhalation Q6HP PRN 03/13/21 02/16/24 History aerosol inhaler shortness of breath or wheezing bisacodyl 10 mg rectal suppository 10 mg ME DAILYP PRN Constipation 03/14/21 02/16/24 History lactulose 20 gram/30 mL oral 30 ml PO DAILYP PRN Constipation 03/14/21 02/16/24 History solution linaclotide 290 mcg capsule 290 mcg PO HS Irritable bowel 04/27/22 02/16/24 History (Linzess) syndrome cranberry extract 425 mg capsule 850 mg PO DAILY 04/28/22 02/16/24 History bethanechol chloride 25 mg tablet 25 mg PO QID bladder control 30 04/29/22 02/16/24 Rx days #0 tabs aripiprazole 300 mg suspension, 300 mg IM MONTHLY 01/11/23 02/16/24 History extended rel. intramuscular syringe (Olgakerry Sethjessicaerrol) cetirizine 10 mg tablet (Zyrtec) 10 mg PO DAILY 01/11/23 02/16/24 History icosapent ethyl 1 gram capsule 2 g PO BID 01/11/23 02/16/24 History (Vascepa) azelastine 137 mcg (0.1 %) nasal 1 spray intranasal BID 04/18/23 02/16/24 History spray cholecalciferol (vitamin D3) 125 125 mcg PO DAILY 04/18/23 02/16/24 History mcg (5,000 unit) capsule estradiol 0.01% (0.1 mg/gram) 1 g vaginal .Twice Weekly 04/18/23 02/16/24 History vaginal cream (Estrace) loperamide 2 mg capsule 2 mg PO Q6H PRN Diarrhea 04/18/23 02/16/24 History meclizine 12.5 mg tablet 12.5 mg PO BIDP Dizziness 04/18/23 02/16/24 History montelukast 10 mg tablet 10 mg PO HS 04/18/23 02/16/24 History (Singulair) peg [id number] 1 1 drp ophthalmic (eye) Q6HP PRN 04/18/23 02/16/24 History %-0.2 %-0.2 % eye drops dry eye(s) (Artificial Tears ([id number])) sennosides 8.6 mg-docusate sodium 2 tab-cap PO BID 04/18/23 02/16/24 History 50 mg tablet (Senexon-S) terazosin 10 mg capsule 10 mg PO HS 06/15/23 02/16/24 History venlafaxine 150 mg 150 mg PO DAILY 06/15/23 02/16/24 History capsule,extended release 24 hr divalproex 500 mg tablet,delayed 500 mg PO BID 07/13/23 02/16/24 History release fluticasone furoate 100 1 inh inhalation DAILY #60 ea 07/26/23 02/16/24 Rx mcg-vilanterol 25 mcg/dose inhalation powder (Breo Ellipta) potassium chloride 20 mEq 20 meq PO DAILY 08/08/23 02/16/24 History tablet,extended release dextromethorphan-guaifenesin 10 10 ml PO Q4-6H PRN Cough 09/26/23 02/16/24 History mg-100 mg/5 mL oral liquid phenazopyridine 95 mg tablet (Azo 95 mg PO TID PRN UTI symptoms 09/26/23 02/16/24 History Urinary Pain Relief) magnesium oxide 400 mg PO DAILY #14 tabs 09/27/23 02/16/24 Rx gabapentin 300 mg capsule 300 mg PO TID Pain #90 caps 10/06/23 02/16/24 Rx aspirin 81 mg tablet,delayed 81 mg PO DAILY 02/16/24 02/16/24 History release atorvastatin 20 mg tablet (Lipitor) 20 mg PO HS 02/16/24 02/16/24 History furosemide 40 mg tablet 40 mg PO DAILY 02/16/24 02/16/24 History metoprolol succinate 25 mg 12.5 mg PO HS 02/16/24 02/16/24 History tablet,extended release 24 hr (Toprol XL) cefdinir 300 mg capsule 300 mg PO BID 11 days #22 caps 02/19/24 Rx sucralfate 1 gram tablet 1 g PO BID PRN Acid Reflux #30 tabs 02/19/24 02/16/24 Rx New Prescriptions to Start Prescriptions: Edgar Snider Allergies Allergy/AdvReac Type Severity Reaction Status Date / Time aspirin Allergy Verified 02/03/24 08:55 azithromycin Allergy Verified 01/25/24 10:15 bupropion Allergy Verified 01/25/24 10:15 [From Wellbutrin SR] Cephalosporins Allergy Verified 01/25/24 10:15 levofloxacin [From Levaquin] Allergy Verified 01/25/24 10:15 erythromycin base AdvReac Mild Verified 01/25/24 10:15 tramadol AdvReac Mild Verified 01/25/24 10:15 influenza vaccine AdvReac Unknown Uncoded 01/18/24 11:20 Discharge Plan Disposition Patient Disposition: [facility] Condition: Fair Discharge Order Discharge Orders: Discharge Order (Routine); Ordered 02/19/24 Ordered By: Edgar Lancaster Follow up Plan Prescriptions/Medication Reconciliation: New cefdinir 300 mg Capsule 300 mg PO BID 11 Days Qty: 22 0RF Continued cetirizine [Zyrtec] 10 mg tablet 10 mg PO DAILY icosapent ethyl [Vascepa] 1 gram capsule 2 g PO BID Abilify Maintena 300 mg suspension,extended rel syring 300 mg IM MONTHLY venlafaxine 150 mg capsule,extended release 24hr 150 mg PO DAILY terazosin 10 mg capsule 10 mg PO HS divalproex 500 mg tablet,delayed release (DR/EC) 500 mg PO BID potassium chloride 20 mEq tablet extended release 20 meq PO DAILY dextromethorphan-guaifenesin 10-100 mg/5 mL liquid 10 ml PO Q4-6H PRN (Reason: Cough) phenazopyridine [Azo Urinary Pain Relief] 95 mg tablet 95 mg PO TID PRN (Reason: UTI symptoms) Artificial Tears([id number]) 1-0.2-0.2 % drops 1 drp ophthalmic (eye) Q6HP PRN (Reason: dry eye(s)) Rx Instructions: each eye loperamide 2 mg capsule 2 mg PO Q6H PRN (Reason: Diarrhea) meclizine 12.5 mg tablet 12.5 mg PO BIDP azelastine 137 mcg (0.1 %) aerosol,spray 1 spray intranasal BID Rx Instructions: administer into each nostril estradiol [Estrace] 0.01 % (0.1 mg/gram) cream 1 g vaginal .Twice Weekly montelukast [Singulair] 10 mg tablet 10 mg PO HS sennosides-docusate sodium [Senexon-S] 8.6-50 mg tablet 2 tab-cap PO BID cholecalciferol (vitamin D3) 125 mcg (5,000 unit) capsule 125 mcg PO DAILY fluticasone furoate-vilanterol [Breo Ellipta] 100-25 mcg/dose blister with device 1 inh inhalation DAILY Qty: 60 2RF magnesium oxide 400 mg magnesium tablet 400 mg PO DAILY Qty: 14 0RF gabapentin 300 mg capsule 300 mg PO TID Qty: 90 5RF polyethylene glycol 3350 17 GM powder in packet 17 gm PO DAILY albuterol sulfate 8.5 GM HFA aerosol inhaler 2 inh IH Q6HP PRN (Reason: shortness of breath or wheezing) bisacodyl 10 MG suppository 10 mg RC DAILYP PRN (Reason: Constipation) lactulose 20 GM/30 ML solution 30 ml PO DAILYP PRN (Reason: Constipation) Linzess 290 mcg Capsule 290 mcg PO HS cranberry extract 425 mg Capsule 850 mg PO DAILY bethanechol chloride 25 MG tablet 25 mg PO QID 30 Days Qty: 0 0RF furosemide 40 mg tablet 40 mg PO DAILY aspirin 81 mg Tablet,Delayed Release (Dr/Ec) 81 mg PO DAILY atorvastatin [Lipitor] 20 mg tablet 20 mg PO HS metoprolol succinate [Toprol XL] 25 mg tablet extended release 24 hr 12.5 mg PO HS Rx Instructions: take 0.5 tablet daily ondansetron HCl 4 MG tablet 4 mg PO TIDP PRN (Reason: Nausea) acetaminophen 500 MG tablet 500 mg PO Q6HP PRN (Reason: Pain) ferrous sulfate 325 MG tablet 325 mg PO TID omeprazole 20 MG tablet,delayed release (DR/EC) 20 mg PO DAILY fludrocortisone 0.1 MG tablet 0.1 mg PO DAILY Changed sucralfate 1 gram tablet 1 g PO BID PRN (Reason: Acid Reflux) Qty: 30 0RF Discontinued nitrofurantoin monohyd/m-cryst [Macrobid] 100 mg capsule 100 mg PO BID Rx Instructions: must administer with a meal/food Problem Reconciliation Problems Reviewed?: Yes Patient Discharge Instructions ACTIVITY: Continue current activity DIET: continue same diet Patient Instructions: DI for Urinary Tract Infection (UTI), DI for Sepsis -- Adult, Encephalopathy, DI for Bacteremia-Adult Print Language: Ukrainian Providers Primary Care Provider: Francis Hearnit Provider: Edgar Lancaster Attending Provider: Edgar Lancaster
[2024-02-19] MEDS: MAGNESIUM OXIDE 400MG TABLET 400 MG PO (14:14)
--- NOTE | 2024-02-19 15:42 | PC.NURSE ---
CALLED REPORT TO RAMÓN AT [facility]. NOTIFIED EMS OF TRANSPORT AND THEY STATED IT MAY BE AWHILE DUE TO OTHER TRANSPORTS.
== END 2024-02-19 16:30 | DRG 71 ==
LOC: ER 11:38 → 2ND 11:39
PROVIDERS: Admitting Provider Student in an Organized Health Care Education/Training Program; Emergency Provider Emergency Medicine; PCP Family Medicine; Visit Provider Student in an Organized Health Care Education/Training Program
DX: G93.41 Metabolic encephalopathy (principal); E66.2 Morbid (severe) obesity with alveolar hypoventilation; N39.0 Urinary tract infection, site not specified; Z68.41 Body mass index [BMI] 40.0-44.9, adult; R78.81 Bacteremia; Z79.899 Other long term (current) drug therapy; I25.10 Atherosclerotic heart disease of native coronary artery without angina pectoris; E55.9 Vitamin D deficiency, unspecified; B96.20 Unspecified Escherichia coli [E. coli] as the cause of diseases classified elsewhere; E11.9 Type 2 diabetes mellitus without complications; F43.10 Post-traumatic stress disorder, unspecified; F31.9 Bipolar disorder, unspecified; D86.9 Sarcoidosis, unspecified; I11.0 Hypertensive heart disease with heart failure; I50.9 Heart failure, unspecified
CPT/HCPCS: 36415; 70450; 71045; 80053; 81001; 82306; 82607; 82746; 82803; 82962; 83605; 83735; 83880; 84100; 84145; 84436; 84443; 84484; 85007; 85025; 85027; 85378; 85651; 86140; 86803; 87040; 87077; 87086; 87088; 87186; 87389; 87636; 93005; 94640; 94660; 94761; 99291; J0131; J1335; J1650; J2405; J2543; J7030; J7120

== ENCOUNTER 2024-02-22 08:00 | Outpatient (RCR) | payer MEDICARE, MEDICAID, SELFPAY ==
--- NOTE | 2024-01-26 11:20 | HMH.PTOPWND ---
Rehab Outpt Wound Evaluation Rehab OP Wound Evaluation Start: 01/26/24 11:05 Freq: Status: Active Protocol: Document 01/26/24 11:05 CHELSEA (Rec: 01/26/24 11:20 CEHLSEA [id number]) E-signed By Sawyer West, PT Subjective/History History History This is the initial PT eval for Johanny Molina, 63 yowf, who presents with B LE chronic lymphedema, L LE worse than R . She reports L LE lymphedema has been worse x ~ 6 mos. She reports no pain at baseline, but some tenderness to palpation. She has difficulty with mobility at baseline and is a [place] [facility] [place]. She reports her prior L heel wound is now healed. She has significant PMH of: Elevated left ventricular end- diastolic pressure (LVEDP) CAD in [place] artery Fatigue Swelling of lower extremity Hyperlipidemia Pure hypercholesterolemia, unspecified Vitamin D deficiency, unspecified Type 2 diabetes mellitus without complications Obstructive sleep apnea (adult ) (pediatric) Idiopathic sleep related nonobstructive alveolar hypoventilation Unspecified mood [affective] disorder Unspecified psychosis not due to a substance or known physiological condition Acute pancreatitis without necrosis or infection, unspecified Schizoaffective disorder, unspecified Unspecified fracture of left patella, initial encounter for closed fracture Interstitial cystitis Recurrent UTI Hospital-acquired pneumonia Hx of bipolar disorder Hx: UTI (urinary tract infection) Migraine GERD (gastroesophageal reflux disease) Depression Cancer Anxiety Sarcoidosis History of MRSA infection of lungs Mild persistent asthma Personal history of sarcoidosis Multiple pulmonary nodules Wheezing Dyspnea on exertion Dyspnea CHF (congestive heart failure) Diabetes type 2, controlled Anemia HTN (hypertension) Subjective Subjective Current pain 0/10, at worst pain is 8/10 in the L foot. She has no erythema at this time. Chronic doughy, Severe fibrotic edema noted in B LE, L foot is the most significant . 2/4 TTP to L foot noted. New diagnosis of cancer in past 12 No months? Lymphedema Eval Classification of Lymphedema Primary Lymphedema Yes Secondary Lymphedema Yes Stemmer's sign Stemmer's Sign yes Stage of Lymphedema Lymphedema stages Stage III (Non-pitting, fibrosis and sclerosis, skin changes) Skin Changes Dry Skin Yes Skin Folds Yes Hyperkeratosis Yes Discoloration of Skin Yes Other Changes Yes Pain Scale Pain Scale (0-10) 8 Affected Extremities Areas Affected by Lymphedema/Edema Right Lower Extremity,Left Lower Extremity Lower Extremity Measurements Left MTP Measurement (cm) 31.4 Heel Measurement (cm) 36.5 10 cm Proximal to Lateral Malleoli 33.6 Measurement (cm) 20 cm Proximal to Lateral Malleoli 45.6 Measurement (cm) 30 cm Proximal to Lateral Malleoli 43.9 Measurement (cm) 40 cm Proximal to Lateral Malleoli 55.3 Measurement (cm) 50 cm Proximal to Lateral Malleoli 0 Measurement (cm) 60 cm Proximal to Lateral Malleoli 0 Measurement (cm) Lower Extremity Measurement Total (cm) 246.3 Manual Lymphatic Drainage Treatment Area MLD Treatment Area Right Lower Extremity,Left Lower Extremity Wound Problems/Impairments Impairments Problems/Impairmments Palpation Tenderness,Impaired Endurance,Impaired Transfers, Impaired Standing,Increased Edema,Lymphedema Present, Subjective C/O Pain,Impaired Self Care/Self Management Prognosis Rehab Potential Good Comment Skilled therapy services are indicated to reduce overall edema burden and return pt to PLOF. Clinical Impression Consistent with Diagnosis Yes Short Term Goals Number of Weeks 2 Decreased Palpation Tenderness Yes: 1/4 L foot Decrease Lymphedema Yes: Moderate B LE fibrotic edema Decrease Subjective C/O Pain Yes: 6/10 at worst L foot Patient to Understand Lymphedema Yes Treatment and Exercises Decrease Girth Measurments by (cm) Yes: L LE total by 5 cm Steel Turner Goals Number of Weeks 4 Decreased Palpation Tenderness Yes: 0/4 L foot Decrease Lymphedema Yes: Minimal Fibrotic edema B LE Decrease Subjective C/O Pain Yes: 4/10 at worst in L foot Patient to be Ind w/ HEP Yes Patient to Adhere Lymphedema Precautions Yes Decrease Girth Measurments by (cm) Yes: L LE total by 20 cm Outpatient Therapy Plan of Care Treatment Plan May Include Therapeutic Exercise Including Home Yes Exercise Program Manual Therapy Techniques Yes Neuromuscular Re-education Yes Therapeutic Activities to Return to Yes Previous Functional/Work Level ADL/Self Care Education Yes Orthotics/Bracing/Splinting Yes Manual Lymphatic Drainage Yes Eval/Re-Eval Yes Frequency Times per week 2 Duration Number of Weeks 4 Addendums This patient is a candidate for social No or vocational rehab? Patient/Guardian verbally acknowledges Yes understanding of treatment program and consents to further treatment? Patient/Guardian verbally acknowledges Yes understanding of diagnosis, prognosis and goals for treatment? Eval Complexity PT Charges 61565 - High Complexity PHYSICIAN CERTIFICATION: I certify the specified therapy services for Johanny J Downs are required, authorized, and reviewed every 30 days.
== END 2024-02-22 23:59 | disposition home or self-care (01) ==
LOC: PT 08:00
PROVIDERS: Visit Provider Family Medicine
DX: I89.0 Lymphedema, not elsewhere classified (principal)
CPT/HCPCS: 97140; 97163

== ENCOUNTER 2024-03-08 11:29 | Emergency (ER) | payer MEDICARE, MEDICAID, SELFPAY ==
[2024-03-08 11:35] VITALS: PULSE 67; O2SAT 97
[2024-03-08 11:36] VITALS: BP 115/55; PULSE 64; RESP 16; TEMP 36.9; O2SAT 97; BMI 42.9
--- NOTE | 2024-03-08 11:40 | PC.NURSE ---
Missy Taylor at bedside IV unsuccessful at this time
--- NOTE | 2024-03-08 11:50 | HMH.EDGENADL ---
Discharge Plan Disposition Patient Disposition: Home, Self-Care Condition: Good Prescriptions Prescriptions: New cefdinir 300 mg capsule 300 mg PO Q12H 7 Days Qty: 14 0RF No Action cetirizine [Zyrtec] 10 mg tablet 10 mg PO DAILY icosapent ethyl [Vascepa] 1 gram capsule 2 g PO BID Abilify Maintena 300 mg suspension,extended rel syring 300 mg IM MONTHLY venlafaxine 150 mg capsule,extended release 24hr 150 mg PO DAILY terazosin 10 mg capsule 10 mg PO HS divalproex 500 mg tablet,delayed release (DR/EC) 500 mg PO BID potassium chloride 20 mEq tablet extended release 20 meq PO DAILY dextromethorphan-guaifenesin 10-100 mg/5 mL liquid 10 ml PO Q4-6H PRN (Reason: Cough) phenazopyridine [Azo Urinary Pain Relief] 95 mg tablet 95 mg PO TID PRN (Reason: UTI symptoms) Artificial Tears(id-badi-ibkg) 1-0.2-0.2 % drops 1 drp ophthalmic (eye) Q6HP PRN (Reason: dry eye(s)) Rx Instructions: each eye loperamide 2 mg capsule 2 mg PO Q6H PRN (Reason: Diarrhea) meclizine 12.5 mg tablet 12.5 mg PO BIDP azelastine 137 mcg (0.1 %) aerosol,spray 1 spray intranasal BID Rx Instructions: administer into each nostril estradiol [Estrace] 0.01 % (0.1 mg/gram) cream 1 g vaginal .Twice Weekly montelukast [Singulair] 10 mg tablet 10 mg PO HS sennosides-docusate sodium [Senexon-S] 8.6-50 mg tablet 2 tab-cap PO BID cholecalciferol (vitamin D3) 125 mcg (5,000 unit) capsule 125 mcg PO DAILY fluticasone furoate-vilanterol [Breo Ellipta] 100-25 mcg/dose blister with device 1 inh inhalation DAILY Qty: 60 2RF magnesium oxide 400 mg magnesium tablet 400 mg PO DAILY Qty: 14 0RF gabapentin 300 mg capsule 300 mg PO TID Qty: 90 5RF polyethylene glycol 3350 17 GM powder in packet 17 gm PO DAILY albuterol sulfate 8.5 GM HFA aerosol inhaler 2 inh IH Q6HP PRN (Reason: shortness of breath or wheezing) bisacodyl 10 MG suppository 10 mg RC DAILYP PRN (Reason: Constipation) lactulose 20 GM/30 ML solution 30 ml PO DAILYP PRN (Reason: Constipation) Linzess 290 mcg Capsule 290 mcg PO HS cranberry extract 425 mg Capsule 850 mg PO DAILY bethanechol chloride 25 MG tablet 25 mg PO QID 30 Days Qty: 0 0RF furosemide 40 mg tablet 40 mg PO DAILY aspirin 81 mg Tablet,Delayed Release (Dr/Ec) 81 mg PO DAILY atorvastatin [Lipitor] 20 mg tablet 20 mg PO HS metoprolol succinate [Toprol XL] 25 mg tablet extended release 24 hr 12.5 mg PO HS Rx Instructions: take 0.5 tablet daily cefdinir 300 mg Capsule 300 mg PO BID 11 Days Qty: 22 0RF sucralfate 1 gram tablet 1 g PO BID PRN (Reason: Acid Reflux) Qty: 30 0RF ondansetron HCl 4 MG tablet 4 mg PO TIDP PRN (Reason: Nausea) acetaminophen 500 MG tablet 500 mg PO Q6HP PRN (Reason: Pain) ferrous sulfate 325 MG tablet 325 mg PO TID omeprazole 20 MG tablet,delayed release (DR/EC) 20 mg PO DAILY fludrocortisone 0.1 MG tablet 0.1 mg PO DAILY Referrals Follow up/Referrals: Provider,Referral, MD [Primary Care Provider] - See instructions Activity Restrictions/Add. Instructions Additional Instructions/Restrictions: Follow-up with your primary care physician. If you develop any new or worsening symptoms, or if you become concerned for your health for any reason, return to the emergency department for evaluation Clinical Impressions Clinical Impression: Urinary tract infection Instructions Patient Instructions: DI for Urinary Tract Infection (UTI), DI for Urinary Tract Infection in Children Print Language Print Language: Angolan Discharge ED Provider: Juan Zepeda Adult [facility] General Chief complaint: Urogenital-Female Stated complaint: Weakness Time Seen by Provider: 03/08/24 11:47 Mode of Arrival: EMS Source of Information: Patient and EMS Limitations: No Limitations Description of Symptoms (Recalled from ER Triage Doc. by RN): pt told Leo she wanted to come to the ER. pt c/o bladder pain that is cramping in nature and 7/10. pt states she thinks she has a UTI. pt is A&O to baseline. History of Present Illness HPI narrative: Johanny Molina is a 63Y female with a history of recurrent UTIs, COPD, obesity, type 2 diabetes, obstructive sleep apnea, coronary artery disease who presents to the emergency department via EMS from [facility] for complaints of a possible urinary tract infection. Patient states that she is having burning with urination and peeing less than normal and has been dealing with a urinary tract infection for some time . Patient states that she is currently on an antibiotic but does not know what it is. Patient states that this feels similar to previous urinary tract infections and she is having some suprapubic pain as well. She denies any cough or congestion or shortness of breath. She states that she has had chills. She requires oxygen at baseline and is on 3 L/min currently. Related Data Home Medications ?Medication ?Instructions ?Recorded ?Confirmed acetaminophen 500 mg tablet 500 mg PO Q6HP PRN Pain 04/17/20 02/22/24 ferrous sulfate 325 mg (65 mg 325 mg PO TID Supplement 04/17/20 02/22/24 iron) tablet fludrocortisone 0.1 mg tablet 0.1 mg PO DAILY Adrenal disease 04/17/20 02/22/24 omeprazole 20 mg tablet,delayed 20 mg PO DAILY acid reflux 04/17/20 02/22/24 release ondansetron HCl 4 mg tablet 4 mg PO TIDP PRN Nausea 04/17/20 02/22/24 polyethylene glycol 3350 17 gram 17 gm PO DAILY CONSTIPATION 10/12/20 02/22/24 oral powder packet albuterol sulfate 90 mcg/actuation 2 inh inhalation Q6HP PRN 03/13/21 02/22/24 aerosol inhaler shortness of breath or wheezing bisacodyl 10 mg rectal suppository 10 mg MO DAILYP PRN Constipation 03/14/21 02/22/24 lactulose 20 gram/30 mL oral 30 ml PO DAILYP PRN Constipation 03/14/21 02/22/24 solution linaclotide 290 mcg capsule 290 mcg PO HS Irritable bowel 04/27/22 02/22/24 (Linzess) syndrome cranberry extract 425 mg capsule 850 mg PO DAILY 04/28/22 02/22/24 aripiprazole 300 mg suspension, 300 mg IM MONTHLY 01/11/23 02/22/24 extended rel. intramuscular syringe (Brandon Rosalesa) cetirizine 10 mg tablet (Zyrtec) 10 mg PO DAILY 01/11/23 02/22/24 icosapent ethyl 1 gram capsule 2 g PO BID 01/11/23 02/22/24 (Vascepa) azelastine 137 mcg (0.1 %) nasal 1 spray intranasal BID 04/18/23 02/22/24 spray cholecalciferol (vitamin D3) 125 125 mcg PO DAILY 04/18/23 02/22/24 mcg (5,000 unit) capsule estradiol 0.01% (0.1 mg/gram) 1 g vaginal .Twice Weekly 04/18/23 02/22/24 vaginal cream (Estrace) loperamide 2 mg capsule 2 mg PO Q6H PRN Diarrhea 04/18/23 02/22/24 meclizine 12.5 mg tablet 12.5 mg PO BIDP Dizziness 04/18/23 02/22/24 montelukast 10 mg tablet 10 mg PO HS 04/18/23 02/22/24 (Singulair) peg 339-sjkesibkubeq-zoioikml 1 1 drp ophthalmic (eye) Q6HP PRN 04/18/23 02/22/24 %-0.2 %-0.2 % eye drops dry eye(s) (Artificial Tears ([id number])) sennosides 8.6 mg-docusate sodium 2 tab-cap PO BID 04/18/23 02/22/24 50 mg tablet (Senexon-S) terazosin 10 mg capsule 10 mg PO HS 06/15/23 02/22/24 venlafaxine 150 mg 150 mg PO DAILY 06/15/23 02/22/24 capsule,extended release 24 hr divalproex 500 mg tablet,delayed 500 mg PO BID 07/13/23 02/22/24 release potassium chloride 20 mEq 20 meq PO DAILY 08/08/23 02/22/24 tablet,extended release dextromethorphan-guaifenesin 10 10 ml PO Q4-6H PRN Cough 09/26/23 02/22/24 mg-100 mg/5 mL oral liquid phenazopyridine 95 mg tablet (Azo 95 mg PO TID PRN UTI symptoms 09/26/23 02/22/24 Urinary Pain Relief) aspirin 81 mg tablet,delayed 81 mg PO DAILY 02/16/24 02/22/24 release atorvastatin 20 mg tablet (Lipitor) 20 mg PO HS 02/16/24 02/22/24 furosemide 40 mg tablet 40 mg PO DAILY 02/16/24 02/22/24 metoprolol succinate 25 mg 12.5 mg PO HS 02/16/24 02/22/24 tablet,extended release 24 hr (Toprol XL) Previous Rx's ?Medication ?Instructions ?Recorded bethanechol chloride 25 mg tablet 25 mg PO QID bladder control 30 04/29/22 days #0 tabs fluticasone furoate 100 1 inh inhalation DAILY #60 ea 07/26/23 mcg-vilanterol 25 mcg/dose inhalation powder (Breo Ellipta) magnesium oxide 400 mg PO DAILY #14 tabs 09/27/23 gabapentin 300 mg capsule 300 mg PO TID Pain #90 caps 10/06/23 cefdinir 300 mg capsule 300 mg PO BID 11 days #22 caps 02/19/24 sucralfate 1 gram tablet 1 g PO BID PRN Acid Reflux #30 tabs 02/19/24 cefdinir 300 mg capsule 300 mg PO Q12H 7 days #14 caps 03/08/24 Allergies Allergy/AdvReac Type Severity Reaction Status Date / Time aspirin Allergy Verified 02/22/24 17:48 azithromycin Allergy Verified 02/22/24 17:48 bupropion Allergy Verified 02/22/24 17:48 [From Wellbutrin SR] Cephalosporins Allergy Verified 02/22/24 17:48 levofloxacin [From Levaquin] Allergy Verified 02/22/24 17:48 erythromycin base AdvReac Mild Verified 02/22/24 17:48 tramadol AdvReac Mild Verified 02/22/24 17:48 influenza vaccine AdvReac Unknown Uncoded 01/18/24 11:20 [facility] Disclaimer: The information contained in this section may have been updated after the patient was seen, as this information can be updated by other users. Medical History (Updated 03/08/24 @ 14:06 by Juan Zepeda MD) Colon cancer screening Atypical angina Family history of ischemic heart disease Abnormal cardiovascular stress test Cardiac dysrhythmia Complex sleep apnea syndrome Pure hypercholesterolemia, unspecified Type 2 diabetes mellitus without complications Idiopathic sleep related nonobstructive alveolar hypoventilation Non healing left heel wound Morbid obesity with alveolar hypoventilation Seizure disorder COPD (chronic obstructive pulmonary disease) Bilateral lower extremity edema Diabetic foot Lymphedema Onychomycosis Onychodystrophy Obesity (BMI 30-39.9) LANCE (obstructive sleep apnea) Wart of hand Hypomagnesemia Hypokalemia Sepsis History of MRSA infection of lungs Diabetes type 2, controlled Anxiety Acute hypoxemic respiratory failure Hospital-acquired pneumonia Pill esophagitis Chronic hypercapnic respiratory failure Dysphagia Elevated left ventricular end-diastolic pressure (LVEDP) CAD in [place] artery Hyperlipidemia Vitamin D deficiency, unspecified Obstructive sleep apnea (adult) (pediatric) Acute pancreatitis without necrosis or infection, unspecified Schizoaffective disorder, unspecified Unspecified fracture of left patella, initial encounter for closed fracture Interstitial cystitis Recurrent UTI Hx of bipolar disorder Migraine GERD (gastroesophageal reflux disease) Depression Cancer Mild persistent asthma Personal history of sarcoidosis Multiple pulmonary nodules CHF (congestive heart failure) Anemia HTN (hypertension) Surgical History Status post foot surgery Status post surgical removal of malignant neoplasm of skin History of sinus surgery History of hysterectomy History of dilation and curettage History of section History of colonoscopy Hx of cholecystectomy History of tonsillectomy Family History Other CHF (congestive heart failure) Social History Smoking Status: Unknown if ever smoked alcohol intake: never substance use type: denies use current occupational status: unemployed Travel in the last 8 weeks: None household members: caregiver housing: assisted living facility caffeine: No Other Medical History Have you received the Flu Vaccine for this season: No Have you received the Pneumonia Vaccine: Yes ROS Obtained: Yes Systems reviewed as appropriate & no additional complaints except as documented Physical Exam General General appearance: alert and in no apparent distress Head Head exam: atraumatic Eye Eye exam: Present normal appearance ENT ENT exam: Present normal external ear exam Neck Neck exam: Present full ROM Chest Chest inspection: Present symmetric chest wall rise Respiratory Respiratory exam: Present normal lung sounds bilaterally; Absent respiratory distress Cardiovascular Cardiovascular exam: Present regular rate and normal rhythm Abdominal Exam Abdominal exam: Present soft and tenderness (Mild suprapubic tenderness); Absent guarding Abdominal tenderness: Present suprapubic Extremities Exam Extremities exam: Present normal inspection Back Exam Back exam: Present normal inspection Neurological Exam Neurological exam: Present alert and other (Moving all extremities, following commands, answering most questions appropriately but confused to location and date. Oriented to self) Skin Skin exam: Present warm and dry Medical Decision Making Medical Records Screening: Per USPSTF and CDC recommendations, given the prevalence of disease in our region, it is our hospital?s policy to screen for HIV and viral Hepatitis for all patients aged 18 and over and those with ongoing risk factors. [place] Inquiry Pt receiving controlled substance: No Vital Signs: 03/08/24 11:35 03/08/24 11:36 03/08/24 13:54 Temperature 98.4 F Temperature Source Oral Pulse Rate 67 76 Pulse Rate [Left] 64 Respiratory Rate 16 Blood Pressure 129/78 Blood Pressure [Right Arm] 115/55 L Blood Pressure Mean 95 Blood Pressure Mean [Right Arm] 75 Blood Pressure Source Blood Pressure Source [Right Arm] Automatic Cuff Blood Pressure Position Blood Pressure Position [Right Arm] Sitting 02 Sat by Pulse Oximetry 97 97 96 Oxygen Delivery Method Nasal Cannula Nasal Cannula Oxygen Flow Rate (LPM) 3 3 03/08/24 14:00 03/08/24 14:31 03/08/24 14:34 Temperature 98.0 F Temperature Source Oral Pulse Rate 65 72 65 Pulse Rate [Left] Respiratory Rate 20 Blood Pressure 127/76 112/62 127/76 Blood Pressure [Right Arm] Blood Pressure Mean 94 78 Blood Pressure Mean [Right Arm] Blood Pressure Source Automatic Cuff Blood Pressure Source [Right Arm] Blood Pressure Position Supine Blood Pressure Position [Right Arm] 02 Sat by Pulse Oximetry 97 98 Oxygen Delivery Method Nasal Cannula Oxygen Flow Rate (LPM) 3 Lab Data Lab Results 03/08/24 12:11: Urine Color [place], Urine Appearance Cloudy, Urine pH 6.5, Ur Specific [place] 1.010, Urine Protein 2+ A, Urine Glucose (UA) Trace, Urine Ketones Trace, Urine Blood 1+ A, Urine Nitrate Positive, Urine Bilirubin 1+ A, Urine Urobilinogen 4.0, Ur Leukocyte Esterase 3+ A, Urine RBC 5-10, Urine WBC Tntc, Ur Squamous Epith Cells 3-5, Urine Bacteria 4+ 03/08/24 12:41: WBC 7.1, RBC 3.76 L, Hgb 12.4, Hct 36.3 L, MCV 96.6, MCH 33.1 H, MCHC 34.3, RDW 13.3, Plt Count 267, MPV 7.1 L, Neut % (Auto) 60.8, Lymph % (Auto) 29.5, [place] % (Auto) 6.4, Eos % (Auto) 2.3, Baso % (Auto) 1.0, Neut # (Auto) 4.4, Lymph # (Auto) 2.1, [place] # (Auto) 0.5, Eos # (Auto) 0.2, Baso # (Auto) 0.1, Sodium 137, Potassium 4.6, Chloride 98, Carbon Dioxide 35 H, Anion Gap 8.6, BUN 17, Creatinine 0.90, Estimated Creat Clear 53, Estimated GFR 63, Est GFR ( Amer) 76, Glucose 102 H, Lactate 1.2, Calcium 9.0, Total Bilirubin 0.8, AST 32, ALT 23, Alkaline Phosphatase 49, Total Protein 6.5, Albumin 3.9, Globulin 2.6, Albumin/Globulin Ratio 1.5, Lipase 79 03/08/24 12:41 03/08/24 12:41 Orders (Tests/Meds): ORDERS Category Date Time Status CBC w/Auto Diff [Complete Blood Count Auto Diff] Stat Lab 03/08/24 12:41 Completed CMP [Comprehensive Metabolic Panel] Stat Lab 03/08/24 12:41 Completed Lactic Acid Stat Lab 03/08/24 12:41 Completed Lipase Stat Lab 03/08/24 12:41 Completed UA [Urinalysis and Microscopic] Stat Lab 03/08/24 12:11 Completed Blood Culture Stat Micro 03/08/24 13:04 Received Urine Culture Stat Micro 03/08/24 12:11 Received Medical Decision Narrative: Jennifer Molina is a 63-year-old female with a history of type 2 diabetes, morbid obesity, COPD, UTI presenting to the emergency department for complaints of burning with urination. Patient states that she recently had a urinary tract infection and was treated for it, however since then she has had worsening burning with urination and decreased urine output. She is worried that she has another UTI. She appears mildly confused today but is on her baseline oxygen therapy at 3 L/min. On arrival, patient is afebrile, hemodynamically stable, breathing comfortably on nasal cannula. Physical exam, stated above, revealed mild suprapubic tenderness without guarding or rebound. No abnormal lung sounds. The remainder of her exam is grossly unremarkable as well Differential diagnosis includes: UTI, colitis, diverticulitis, pancreatitis, among others Patient's workup in the emergency department included: CBC, CMP, lactic acid, lipase, urinalysis Patient's workup was significant for a urine with 4+ bacteria, 5-10 red blood cells, too numerous white blood cells to count, 3+ leukocyte Estrace, nitrate positive, 1+ bilirubin, 1+ urine blood, lipase normal 79, lactate normal at 1.2, liver enzymes within normal limits, CMP unremarkable nonactionable, no leukocytosis. Given this, previous cultures demonstrated that the patient's urine grew E. coli. She finished a course of cefdinir on the . Will prescribe additional course of cefdinir at this time to treat her urinary tract infection. Is felt that her confusion is likely secondary to her UTI. She does not require any additional oxygen and has no other indication for admission to the hospital is felt that she is [facility]. She is being discharged with a 7-day course of cefdinir. Critical Care Critical Care Time Critical Care Time: No
[2024-03-08 12:17] LABS: Microscopic, Urine URINE MICROSCOPIC (MICROSCOPIC)
[2024-03-08 12:22] LABS: Appearance,Urine CLOUDY (Clear); Blood, Urine 1+ (Negative); Color,Urine ORANGE (Yellow); Glucose,Urine (UA) TRACE (Negative); Ketones,Urine TRACE (Negative); Leukocyte Esterase,Urine 3+ (Negative); Nitrate,Urine POSITIVE (Negative); PH,Urine 6.5 (5.0-8.5); Protein,Urine 2+ (Negative)
[2024-03-08 12:30] LABS: Bilirubin,Urine 1+ (Negative)
--- NOTE | 2024-03-08 12:34 | PC.NURSE ---
Santa Rivera attempted IV access. unsuccessful. House paged to assist
[2024-03-08 12:37] LABS: Bacteria,Urine 4+ /lpf; WBC,Urine TNTC #/hpf (0-3)
--- NOTE | 2024-03-08 12:42 | PC.NURSE ---
house at bedside at this time
[2024-03-08 12:51] LABS: Basophils # 0.1 K/mm3 (0-0.2); Eosinophils # 0.2 K/mm3 (0.0-0.4); Eosinophils % 2.3 % (0.1-12.0); Hematocrit 36.3 % (37.0-47.0); Hemoglobin 12.4 g/dL (12.2-16.2); Lymphocytes # 2.1 K/mm3 (0.7-4.5); Lymphocytes % 29.5 % (10-50); Mean Corpuscular HGB Conc 34.3 g/dL (31.8-35.4); Mean Corpuscular Hemoglobin 33.1 pg (27.0-31.2); Mean Corpuscular Volume 96.6 fl (81-99); Mean Platelet Volume 7.1 fl (7.4-10.4); Monocytes # 0.5 K/mm3 (0.1-1.0); Monocytes % 6.4 % (1.7-9.3); Neutrophils # 4.4 K/mm3 (1.8-7.8); Neutrophils % 60.8 % (37.0-80.0); Platelet Count 267 K/mm3 (142-424); Red Blood Count 3.76 M/mm3 (4.20-5.40); Red Cell Distribution Width 13.3 % (11.5-17.5); White Blood Count 7.1 K/mm3 (4.8-10.8)
[2024-03-08 12:55] LABS: Albumin Level 3.9 g/dl (3.5-5.0); Chloride 98 mmol/L (98-107); Potassium 4.6 mmoL/L (3.5-5.1); Sodium 137 mmol/L (136-145)
[2024-03-08 12:57] LABS: Blood Urea Nitrogen 17 mg/dl (7-17); Creatinine Clearance Estimated 53 mL/min (50-200); Estimated Glomerular Filt Rate 63 ml/min (>60); GFR (African American) 76 ML/MIN (>60); Lactic Acid 1.2 mmol/L (0.7-2.1)
[2024-03-08 12:58] LABS: Alanine Aminotransferase 23 U/L (12-78); Albumin/Globulin Ratio 1.5 (1.1-1.8); Alkaline Phosphatase 49 U/L (38-126); Anion Gap 8.6 mEq/L (5-15); Aspartate Amino Transferase 32 U/L (14-36); Bilirubin,Total 0.8 mg/dl (0.2-1.3); Carbon Dioxide 35 mmol/L (22.0-30.0); Globulin 2.6 g/dL (1.3-3.2); Glucose 102 mg/dl (74-100); Lipase 79 U/L (23-300); Total Protein,Serum 6.5 g/dl (6.3-8.2)
--- NOTE | 2024-03-08 13:19 | PC.NURSE ---
I rounded on the pt, no new complaints at this time. no needs voiced. call ayala in reach.
[2024-03-08 13:54] VITALS: BP 129/78; PULSE 76; O2SAT 96
[2024-03-08 14:00] VITALS: BP 127/76; PULSE 65; O2SAT 97
--- NOTE | 2024-03-08 14:12 | PC.NURSE ---
called EMS to let them know pt was ready to be tranferred back
[2024-03-08 14:31] VITALS: BP 112/62; PULSE 72; O2SAT 98
--- NOTE | 2024-03-08 14:33 | PC.NURSE ---
Report called to Marion at [facility].
[2024-03-08 14:34] VITALS: BP 127/76; PULSE 65; RESP 20; TEMP 36.7; O2SAT 97
--- NOTE | 2024-03-13 07:29 | PC.NURSE ---
discussed urine culture with , pt dc with cefdinir, ntd
== END 2024-03-08 15:06 | disposition home or self-care (01) ==
PROVIDERS: Emergency Provider Student in an Organized Health Care Education/Training Program
DX: R30.0 Dysuria (principal); R10.9 Unspecified abdominal pain; R68.83 Chills (without fever); N39.0 Urinary tract infection, site not specified
CPT/HCPCS: 80053; 81001; 83605; 83690; 85025; 87040; 87086; 87088; 87186; 99282

== ENCOUNTER 2024-03-26 13:40 | Emergency (ER) | payer MEDICARE, MEDICAID, SELFPAY ==
[2024-03-26] VITALS (7 sets, daily range): BP systolic 104–128; BP diastolic 72–88; PULSE 90–106; RESP 20; TEMP 36.6; O2SAT 94–96; BMI 47.2
--- NOTE | 2024-03-26 13:52 | ECG_ITS ---
APPROVED REPORT Exam: Resting ECG HR:97 bpm ECG Measurements Heart Rate 97 AXES TN 164 P 45 QRSd 101 QRS -10 QT 326 T 61 QTc 381 Conclusion SINUS RHYTHM Electronically signed by : CHRISTIANO CHAMPION, 03/27/2024 08:19:02
--- NOTE | 2024-03-26 14:18 | HMH.EDGENADL ---
Discharge Plan Disposition Patient Disposition: Xfer [facility] Condition: Fair Prescriptions Prescriptions: New sulfamethoxazole-trimethoprim [Bactrim DS] 800-160 mg tablet 1 tab PO BID 5 Days Qty: 10 0RF No Action cetirizine [Zyrtec] 10 mg tablet 10 mg PO DAILY Abilify Maintena 300 mg suspension,extended rel syring 300 mg IM MONTHLY divalproex 500 mg tablet,delayed release (DR/EC) 500 mg PO BID potassium chloride 20 mEq tablet extended release 20 meq PO DAILY dextromethorphan-guaifenesin 10-100 mg/5 mL liquid 10 ml PO Q4-6H PRN (Reason: Cough) phenazopyridine [Azo Urinary Pain Relief] 95 mg tablet 190 mg PO TID PRN (Reason: UTI symptoms) magnesium hydroxide [Milk of Magnesia] 400 mg/5 mL suspension 2,400 mg PO DAILY PRN fluticasone propionate [Flonase Allergy Relief] 50 mcg/actuation spray,suspension 2 spray intranasal DAILY Rx Instructions: administer into each nostril coQ10 (ubiquinol) [Qunol Brendan CoQ10] 100 mg capsule 100 mg PO BID Artificial Tears([id number]) 1-0.2-0.2 % drops 1 drp ophthalmic (eye) Q6HP PRN (Reason: dry eye(s)) Rx Instructions: each eye loperamide 2 mg capsule 2 mg PO Q6H PRN (Reason: Diarrhea) meclizine 12.5 mg tablet 12.5 mg PO BIDP azelastine 137 mcg (0.1 %) aerosol,spray 1 spray intranasal BID Rx Instructions: administer into each nostril estradiol [Estrace] 0.01 % (0.1 mg/gram) cream 1 g vaginal .Twice Weekly montelukast [Singulair] 10 mg tablet 10 mg PO HS sennosides-docusate sodium [Senexon-S] 8.6-50 mg tablet 2 tab-cap PO BID fluticasone furoate-vilanterol [Breo Ellipta] 100-25 mcg/dose blister with device 1 inh inhalation DAILY Qty: 60 2RF magnesium oxide 400 mg magnesium tablet 400 mg PO DAILY Qty: 14 0RF gabapentin 300 mg capsule 300 mg PO TID Qty: 90 5RF polyethylene glycol 3350 17 GM powder in packet 17 gm PO DAILY albuterol sulfate 8.5 GM HFA aerosol inhaler 2 inh IH Q6HP PRN (Reason: shortness of breath or wheezing) bisacodyl 10 MG suppository 10 mg RC DAILYP PRN (Reason: Constipation) lactulose 20 GM/30 ML solution 30 ml PO DAILYP PRN (Reason: Constipation) Linzess 290 mcg Capsule 290 mcg PO HS cranberry extract 425 mg Capsule 850 mg PO DAILY bethanechol chloride 25 MG tablet 25 mg PO QID 30 Days Qty: 0 0RF furosemide 40 mg tablet 40 mg PO DAILY aspirin 81 mg Tablet,Delayed Release (Dr/Ec) 81 mg PO DAILY atorvastatin [Lipitor] 20 mg tablet 20 mg PO HS metoprolol succinate [Toprol XL] 25 mg tablet extended release 24 hr 12.5 mg PO HS Rx Instructions: take 0.5 tablet daily ondansetron HCl 4 MG tablet 4 mg PO TIDP PRN (Reason: Nausea) acetaminophen 500 MG tablet 500 mg PO Q6HP PRN (Reason: Pain) ferrous sulfate 325 MG tablet 325 mg PO TID omeprazole 20 MG tablet,delayed release (DR/EC) 20 mg PO DAILY fludrocortisone 0.1 MG tablet 0.1 mg PO DAILY Referrals Follow up/Referrals: Provider,Referral, MD [Primary Care Provider] - See instructions Activity Restrictions/Add. Instructions Additional Instructions/Restrictions: Lease take all your medicine till its gone. Follow-up with your PCP for no improvement or worsening symptoms or return to the ER. Clinical Impressions Clinical Impression: Urinary tract infectious disease Qualifiers: Urinary tract infection type: site unspecified Hematuria presence: with hematuria Qualified Code(s): N39.0 - Urinary tract infection, site not specified Instructions Patient Instructions: DI for Urinary Tract Infection (UTI) Print Language Print Language: Georgian Discharge ED Provider: Dav Gee General Adult HPI <ALETHEA Rockwell - Last Filed: 03/26/24 20:14> General Chief complaint: Altered Mental Status Stated complaint: Tachycardia Time Seen by Provider: 03/26/24 14:06 Mode of Arrival: EMS Source of Information: EMS Limitations: No Limitations Description of Symptoms (Recalled from ER Triage Doc. by RN): [facility] patient was tachycardic, hypotensive with altered mental status. History of Present Illness HPI narrative: Patient [facility] initially with a chief complaint of an altered mental status. They stated that she was tachycardic and hypotensive as well. However at the time of my exam patient is normotensive is not tachycardic and while I do not know what her functional capacity is she answers appropriately to her name and denies any chest pain shortness of breath fever chills hemoptysis hematochezia melena nausea vomiting diarrhea dysuria but I do not know if she is a reliable historian. Related Data Home Medications ?Medication ?Instructions ?Recorded ?Confirmed acetaminophen 500 mg tablet 500 mg PO Q6HP PRN Pain 04/17/20 03/26/24 ferrous sulfate 325 mg (65 mg 325 mg PO TID Supplement 04/17/20 03/26/24 iron) tablet fludrocortisone 0.1 mg tablet 0.1 mg PO DAILY Adrenal disease 04/17/20 03/26/24 omeprazole 20 mg tablet,delayed 20 mg PO DAILY acid reflux 04/17/20 03/26/24 release ondansetron HCl 4 mg tablet 4 mg PO TIDP PRN Nausea 04/17/20 03/26/24 polyethylene glycol 3350 17 gram 17 gm PO DAILY CONSTIPATION 10/12/20 03/26/24 oral powder packet albuterol sulfate 90 mcg/actuation 2 inh inhalation Q6HP PRN 03/13/21 03/26/24 aerosol inhaler shortness of breath or wheezing bisacodyl 10 mg rectal suppository 10 mg [place] DAILYP PRN Constipation 03/14/21 03/26/24 lactulose 20 gram/30 mL oral 30 ml PO DAILYP PRN Constipation 03/14/21 03/26/24 solution linaclotide 290 mcg capsule 290 mcg PO HS Irritable bowel 04/27/22 03/26/24 (Linzess) syndrome cranberry extract 425 mg capsule 850 mg PO DAILY 04/28/22 03/26/24 aripiprazole 300 mg suspension, 300 mg IM MONTHLY 01/11/23 03/26/24 extended rel. intramuscular syringe (Brandon Mcclellan) cetirizine 10 mg tablet (Zyrtec) 10 mg PO DAILY 01/11/23 03/26/24 azelastine 137 mcg (0.1 %) nasal 1 spray intranasal BID 04/18/23 03/26/24 spray estradiol 0.01% (0.1 mg/gram) 1 g vaginal .Twice Weekly 04/18/23 03/26/24 vaginal cream (Estrace) loperamide 2 mg capsule 2 mg PO Q6H PRN Diarrhea 04/18/23 03/26/24 meclizine 12.5 mg tablet 12.5 mg PO BIDP Dizziness 04/18/23 03/26/24 montelukast 10 mg tablet 10 mg PO HS 04/18/23 03/26/24 (Singulair) peg [id number] 1 1 drp ophthalmic (eye) Q6HP PRN 04/18/23 03/26/24 %-0.2 %-0.2 % eye drops dry eye(s) (Artificial Tears ([id number])) sennosides 8.6 mg-docusate sodium 2 tab-cap PO BID 04/18/23 03/26/24 50 mg tablet (Senexon-S) divalproex 500 mg tablet,delayed 500 mg PO BID 07/13/23 03/26/24 release potassium chloride 20 mEq 20 meq PO DAILY 08/08/23 03/26/24 tablet,extended release dextromethorphan-guaifenesin 10 10 ml PO Q4-6H PRN Cough 09/26/23 03/26/24 mg-100 mg/5 mL oral liquid aspirin 81 mg tablet,delayed 81 mg PO DAILY 02/16/24 03/26/24 release atorvastatin 20 mg tablet (Lipitor) 20 mg PO HS 02/16/24 03/26/24 furosemide 40 mg tablet 40 mg PO DAILY 02/16/24 03/26/24 metoprolol succinate 25 mg 12.5 mg PO HS 02/16/24 03/26/24 tablet,extended release 24 hr (Toprol XL) coQ10 (ubiquinol) 100 mg capsule 100 mg PO BID 03/26/24 03/26/24 (Qunol Brendan CoQ10) fluticasone propionate 50 2 spray intranasal DAILY 03/26/24 03/26/24 mcg/actuation nasal spray,suspension (Flonase Allergy Relief) magnesium hydroxide 400 mg/5 mL 2,400 mg PO DAILY PRN 03/26/24 03/26/24 oral suspension (Milk of Magnesia) phenazopyridine 95 mg tablet (Azo 190 mg PO TID PRN UTI symptoms 03/26/24 03/26/24 Urinary Pain Relief) Previous Rx's ?Medication ?Instructions ?Recorded bethanechol chloride 25 mg tablet 25 mg PO QID bladder control 30 04/29/22 days #0 tabs fluticasone furoate 100 1 inh inhalation DAILY #60 ea 07/26/23 mcg-vilanterol 25 mcg/dose inhalation powder (Breo Ellipta) magnesium oxide 400 mg PO DAILY #14 tabs 09/27/23 gabapentin 300 mg capsule 300 mg PO TID Pain #90 caps 10/06/23 sulfamethoxazole 800 1 tab PO BID 5 days #10 tabs 03/26/24 mg-trimethoprim 160 mg tablet (Bactrim DS) Allergies Allergy/AdvReac Type Severity Reaction Status Date / Time aspirin Allergy Verified 03/26/24 11:38 azithromycin Allergy Verified 03/26/24 11:38 bupropion (From Wellbutrin Allergy Verified 03/26/24 11:38 SR) Cephalosporins Allergy Verified 03/26/24 11:38 levofloxacin (From Levaquin) Allergy Verified 03/26/24 11:38 erythromycin base AdvReac Mild Verified 03/26/24 11:38 tramadol AdvReac Mild Verified 03/26/24 11:38 influenza vaccine AdvReac Unknown Uncoded 01/18/24 11:20 [facility] <ALETHEA Rockwell - Last Filed: 03/26/24 20:14> [facility] Disclaimer: The information contained in this section may have been updated after the patient was seen, as this information can be updated by other users. 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 Pure hypercholesterolemia, unspecified Type 2 diabetes mellitus without complications Idiopathic sleep related nonobstructive alveolar hypoventilation Non healing left heel wound Morbid obesity with alveolar hypoventilation Seizure disorder COPD (chronic obstructive pulmonary disease) Bilateral lower extremity edema Diabetic foot Lymphedema Onychomycosis Onychodystrophy Obesity (BMI 30-39.9) LANCE (obstructive sleep apnea) Wart of hand Hypomagnesemia Hypokalemia Sepsis History of MRSA infection of lungs Diabetes type 2, controlled Anxiety Acute hypoxemic respiratory failure Hospital-acquired pneumonia Pill esophagitis Chronic hypercapnic respiratory failure Dysphagia Elevated left ventricular end-diastolic pressure (LVEDP) CAD in [place] artery Hyperlipidemia Vitamin D deficiency, unspecified Obstructive sleep apnea (adult) (pediatric) Acute pancreatitis without necrosis or infection, unspecified Schizoaffective disorder, unspecified Unspecified fracture of left patella, initial encounter for closed fracture Interstitial cystitis Recurrent UTI Hx of bipolar disorder Migraine GERD (gastroesophageal reflux disease) Depression Cancer Mild persistent asthma Personal history of sarcoidosis Multiple pulmonary nodules CHF (congestive heart failure) Anemia HTN (hypertension) Surgical History Status post foot surgery Status post surgical removal of malignant neoplasm of skin History of sinus surgery History of hysterectomy History of dilation and curettage History of section History of colonoscopy Hx of cholecystectomy History of tonsillectomy Family History Other CHF (congestive heart failure) Social History Smoking Status: Never smoker alcohol intake: never substance use type: denies use current occupational status: unemployed Travel in the last 8 weeks: None household members: caregiver housing: assisted living facility caffeine: No Other Medical History Have you received the Flu Vaccine for this season: No Have you received the Pneumonia Vaccine: Yes (2012) <ALETHEA Rockwell - Last Filed: 03/26/24 20:14> ROS Obtained: Yes Systems reviewed as appropriate & no additional complaints except as documented Physical Exam <ALETHEA Rockwell - Last Filed: 03/26/24 20:14> General General appearance: alert and in no apparent distress Respiratory Respiratory exam: Present normal lung sounds bilaterally Cardiovascular Cardiovascular exam: Present regular rate Neurological Exam Neurological exam: Present alert, oriented X3 (Patient is oriented to her name but not place or circumstance.) and CN II-XII intact Psychiatric Psychiatric exam: Present normal affect and normal mood Medical Decision Making <ALETHEA Rockwell - Last Filed: 03/26/24 20:14> Medical Records Medical records reviewed: Yes I reviewed the patient's medical records. Screening: Per USPSTF and CDC recommendations, given the prevalence of disease in our region, it is our hospital?s policy to screen for HIV and viral Hepatitis for all patients aged 18 and over and those with ongoing risk factors. [place] Inquiry Pt receiving controlled substance: No Vital Signs: 03/26/24 13:41 03/26/24 15:01 03/26/24 15:31 Temperature 97.8 F Temperature Source Oral Pulse Rate 103 H 91 H Pulse Rate [Radial] 99 H Respiratory Rate 20 Blood Pressure 113/74 120/73 Blood Pressure [Right Arm] 124/80 Blood Pressure Mean 80 88 Blood Pressure Mean [Right Arm] 94 Blood Pressure Source Blood Pressure Source [Right Arm] Automatic Cuff Blood Pressure Position Blood Pressure Position [Right Arm] Sitting 02 Sat by Pulse Oximetry 94 L 96 95 Oxygen Delivery Method Nasal Cannula Oxygen Flow Rate (LPM) 3 03/26/24 15:59 03/26/24 16:31 03/26/24 17:02 Temperature Temperature Source Pulse Rate 106 H Pulse Rate [Radial] Respiratory Rate Blood Pressure 128/88 104/75 L 118/72 Blood Pressure [Right Arm] Blood Pressure Mean 84 80 Blood Pressure Mean [Right Arm] Blood Pressure Source Blood Pressure Source [Right Arm] Blood Pressure Position Blood Pressure Position [Right Arm] 02 Sat by Pulse Oximetry 95 Oxygen Delivery Method Oxygen Flow Rate (LPM) 03/26/24 17:12 Temperature 97.8 F Temperature Source Oral Pulse Rate 90 Pulse Rate [Radial] Respiratory Rate 20 Blood Pressure 118/72 Blood Pressure [Right Arm] Blood Pressure Mean Blood Pressure Mean [Right Arm] Blood Pressure Source Automatic Cuff Blood Pressure Source [Right Arm] Blood Pressure Position Sitting Blood Pressure Position [Right Arm] 02 Sat by Pulse Oximetry Oxygen Delivery Method Nasal Cannula Oxygen Flow Rate (LPM) 3 Lab Data Lab results reviewed: Yes I reviewed the patient's lab results. Lab Results 03/26/24 14:22: WBC 11.4 H, RBC 3.77 L, Hgb 12.5, Hct 37.0, MCV 98.2, MCH 33.3 H, MCHC 33.9, RDW 13.8, Plt Count 238, MPV 7.0 L, Neut % (Auto) 79.1, Lymph % (Auto) 10.6, Craig % (Auto) 9.5 H, Eos % (Auto) 0.4, Baso % (Auto) 0.5, Neut # (Auto) 9.0 H, Lymph # (Auto) 1.2, Craig # (Auto) 1.1 H, Eos # (Auto) 0.1, Baso # (Auto) 0.1, Sodium 139, Potassium 4.1, Chloride 97 L, Carbon Dioxide 35 H, Anion Gap 11.1, BUN 16, Creatinine 0.90, Estimated Creat Clear 59, Estimated GFR 63, Est GFR ( Amer) 76, Glucose 108 H, Calcium 8.8, Total Bilirubin 0.9, AST 25, ALT 19, Alkaline Phosphatase 42, Troponin I < 0.01, Total Protein 6.3, Albumin 3.6, Globulin 2.7, Albumin/Globulin Ratio 1.3, Hepatitis C Antibody Non reactive 03/26/24 14:27: SARS-CoV-2 (PCR) Not detected, Influenza A Untype (PCR) Not detected, Influenza Type B (PCR) Not detected 03/26/24 15:15: Urine Color Yellow, Urine Appearance Clear, Urine pH 7.0, Ur Specific [place]en 1.015, Urine Protein 1+ A, Urine Glucose (UA) Negative, Urine Ketones Negative, Urine Blood 2+ A, Urine Nitrate Positive, Urine Bilirubin Negative, Urine Urobilinogen 4.0, Ur Leukocyte Esterase 3+ A, Urine RBC Tntc, Urine WBC Tntc, Ur Squamous Epith Cells 20-50, Urine Bacteria 4+ 03/26/24 14:22 03/26/24 14:22 Orders (Tests/Meds): ED MEDICATIONS Discontinued Medications Generic Name Dose Route Start Last Admin Trade Name Freq PRN Reason Stop Dose Admin Trimethoprim/Sulfamethoxazole 1 each 03/26/24 16:42 03/26/24 16:49 Sulfa/Trimethoprim 1 Tablet PO 03/26/24 16:43 1 each ONCE ONE Administration ORDERS Category Date Time Status CBC w/Auto Diff [Complete Blood Count Auto Diff] Stat Lab 03/26/24 14:22 Completed CMP [Comprehensive Metabolic Panel] Stat Lab 03/26/24 14:22 Completed Hep C Ab with Reflex to RNA Stat Lab 03/26/24 14:22 Completed Rapid PCR Covid and Flu A/B Stat Lab 03/26/24 14:27 Completed Trop I [Troponin I] Stat Lab 03/26/24 14:22 Completed UA [Urinalysis and Microscopic] Stat Lab 03/26/24 15:15 Completed Urine Culture Stat Micro 03/26/24 15:15 Results Medical Decision Narrative: In summary patient is a 64-year-old female who presents to the emergency department for evaluation of reported altered mental status hypotension and tachycardia.. Patient is currently hemodynamically stable with a blood pressure of 124/80 pulse 99 respiratory rate 20 satting at 94% on her chronic 3 L by nasal cannula upon arrival, and afebrile. Physical exam is remarkable for a well-nourished well-developed morbidly obese, with a BMI of 47, 64-year-old female who does not appear to be acute distress. She is awake and answers to her name and answers that she does not have any complaints. I am unable to appreciate any repetitious sounds in her lungs and breath sounds are heard to bases, patient is in a normal sinus rhythm on the bedside monitor, heart sounds are normal patient has no abdominal tenderness patient has no increased work of breathing or accessory muscle use.. Differential diagnosis includes toxic metabolic encephalopathy, ACS versus viral or bacterial infection etc. Initial workup will be conducted with hematologic labs urinalysis plain film chest x-ray. Initial interventions include Toradol Tylenol. Initial workup reviewed by me shows she has a white count of 11.4 with an absolute neutrophil count of 9 and the remainder of her hematologic labs are nonactionable including negative troponin. However her urinalysis shows 2+ blood nitrite positive 3+ leukocyte Estrace on dipstick and microscopic exam shows too numerous to count red blood cells too numerous to count white cells 20-50 epithelial cells, 4+ bacteria. Upon repeat evaluation remains at her mentating baseline which is slightly pleasantly confused but arousable and oriented to her name and interactive. She is not hypoxic she is not tachycardic she has no fever. Given this patient is appropriate [facility] with a [facility] for Bactrim with first dose given here and strict return precautions. <Dav Gee MD - Last Filed: 03/27/24 10:37> Vital Signs: 03/26/24 13:41 03/26/24 15:01 03/26/24 15:31 Temperature 97.8 F Temperature Source Oral Pulse Rate 103 H 91 H Pulse Rate [Radial] 99 H Respiratory Rate 20 Blood Pressure 113/74 120/73 Blood Pressure [Right Arm] 124/80 Blood Pressure Mean 80 88 Blood Pressure Mean [Right Arm] 94 Blood Pressure Source Blood Pressure Source [Right Arm] Automatic Cuff Blood Pressure Position Blood Pressure Position [Right Arm] Sitting 02 Sat by Pulse Oximetry 94 L 96 95 Oxygen Delivery Method Nasal Cannula Oxygen Flow Rate (LPM) 3 03/26/24 15:59 03/26/24 16:31 03/26/24 17:02 Temperature Temperature Source Pulse Rate 106 H Pulse Rate [Radial] Respiratory Rate Blood Pressure 128/88 104/75 L 118/72 Blood Pressure [Right Arm] Blood Pressure Mean 84 80 Blood Pressure Mean [Right Arm] Blood Pressure Source Blood Pressure Source [Right Arm] Blood Pressure Position Blood Pressure Position [Right Arm] 02 Sat by Pulse Oximetry 95 Oxygen Delivery Method Oxygen Flow Rate (LPM) 03/26/24 17:12 Temperature 97.8 F Temperature Source Oral Pulse Rate 90 Pulse Rate [Radial] Respiratory Rate 20 Blood Pressure 118/72 Blood Pressure [Right Arm] Blood Pressure Mean Blood Pressure Mean [Right Arm] Blood Pressure Source Automatic Cuff Blood Pressure Source [Right Arm] Blood Pressure Position Sitting Blood Pressure Position [Right Arm] 02 Sat by Pulse Oximetry Oxygen Delivery Method Nasal Cannula Oxygen Flow Rate (LPM) 3 Lab Data Lab Results 03/26/24 14:22: WBC 11.4 H, RBC 3.77 L, Hgb 12.5, Hct 37.0, MCV 98.2, MCH 33.3 H, MCHC 33.9, RDW 13.8, Plt Count 238, MPV 7.0 L, Neut % (Auto) 79.1, Lymph % (Auto) 10.6, Craig % (Auto) 9.5 H, Eos % (Auto) 0.4, Baso % (Auto) 0.5, Neut # (Auto) 9.0 H, Lymph # (Auto) 1.2, Craig # (Auto) 1.1 H, Eos # (Auto) 0.1, Baso # (Auto) 0.1, Sodium 139, Potassium 4.1, Chloride 97 L, Carbon Dioxide 35 H, Anion Gap 11.1, BUN 16, Creatinine 0.90, Estimated Creat Clear 59, Estimated GFR 63, Est GFR ( Amer) 76, Glucose 108 H, Calcium 8.8, Total Bilirubin 0.9, AST 25, ALT 19, Alkaline Phosphatase 42, Troponin I < 0.01, Total Protein 6.3, Albumin 3.6, Globulin 2.7, Albumin/Globulin Ratio 1.3, Hepatitis C Antibody Non reactive 03/26/24 14:27: SARS-CoV-2 (PCR) Not detected, Influenza A Untype (PCR) Not detected, Influenza Type B (PCR) Not detected 03/26/24 15:15: Urine Color Yellow, Urine Appearance Clear, Urine pH 7.0, Ur Specific [place] 1.015, Urine Protein 1+ A, Urine Glucose (UA) Negative, Urine Ketones Negative, Urine Blood 2+ A, Urine Nitrate Positive, Urine Bilirubin Negative, Urine Urobilinogen 4.0, Ur Leukocyte Esterase 3+ A, Urine RBC Tntc, Urine WBC Tntc, Ur Squamous Epith Cells 20-50, Urine Bacteria 4+ Orders (Tests/Meds): ED MEDICATIONS Discontinued Medications Generic Name Dose Route Start Last Admin Trade Name Freq PRN Reason Stop Dose Admin Trimethoprim/Sulfamethoxazole 1 each 03/26/24 16:42 03/26/24 16:49 Sulfa/Trimethoprim 1 Tablet PO 03/26/24 16:43 1 each ONCE ONE Administration ORDERS Category Date Time Status CBC w/Auto Diff [Complete Blood Count Auto Diff] Stat Lab 03/26/24 14:22 Completed CMP [Comprehensive Metabolic Panel] Stat Lab 03/26/24 14:22 Completed Hep C Ab with Reflex to RNA Stat Lab 03/26/24 14:22 Completed Rapid PCR Covid and Flu A/B Stat Lab 03/26/24 14:27 Completed Trop I [Troponin I] Stat Lab 03/26/24 14:22 Completed UA [Urinalysis and Microscopic] Stat Lab 03/26/24 15:15 Completed Urine Culture Stat Micro 03/26/24 15:15 Results ECG Data Tracing #1: I reviewed this ECG and interpreted as documented below: (Sinus rhythm 97 beats a minute. IL 164, QRS 101, QTc 381. Mild leftward axis. No obvious acute ischemic change) Medical Decision Narrative: In summary patient is a 64-year-old female who presents to the emergency department for evaluation of reported altered mental status hypotension and tachycardia.. Patient is currently hemodynamically stable with a blood pressure of 124/80 pulse 99 respiratory rate 20 satting at 94% on her chronic 3 L by nasal cannula upon arrival, and afebrile. Physical exam is remarkable for a well-nourished well-developed morbidly obese, with a BMI of 47, 64-year-old female who does not appear to be acute distress. She is awake and answers to her name and answers that she does not have any complaints. I am unable to appreciate any repetitious sounds in her lungs and breath sounds are heard to bases, patient is in a normal sinus rhythm on the bedside monitor, heart sounds are normal patient has no abdominal tenderness patient has no increased work of breathing or accessory muscle use.. Differential diagnosis includes toxic metabolic encephalopathy, ACS versus viral or bacterial infection etc. Initial workup will be conducted with hematologic labs urinalysis plain film chest x-ray. Initial interventions include Toradol Tylenol. Initial workup reviewed by me shows she has a white count of 11.4 with an absolute neutrophil count of 9 and the remainder of her hematologic labs are nonactionable including negative troponin. However her urinalysis shows 2+ blood nitrite positive 3+ leukocyte Estrace on dipstick and microscopic exam shows too numerous to count red blood cells too numerous to count white cells 20-50 epithelial cells, 4+ bacteria. Upon repeat evaluation remains at her mentating baseline which is slightly pleasantly confused but arousable and oriented to her name and interactive. She is not hypoxic she is not tachycardic she has no fever. Given this patient is appropriate [facility] with a [facility] for Bactrim with first dose given here and strict return precautions. At I was consulted by the ALEXIS, and we discussed the complexity of the problems being addressed. I approved the treatment and management plan for this patient's care in the Emergency Department, thus performing a substantive portion of the medical decision making. Dav Gee MD Critical Care <ALETHEA Rockwell - Last Filed: 03/26/24 20:14> Critical Care Time Critical Care Time: No
[2024-03-26 14:31] LABS: Basophils # 0.1 K/mm3 (0-0.2); Basophils % 0.5 % (0.1-2.0); Eosinophils # 0.1 K/mm3 (0.0-0.4); Eosinophils % 0.4 % (0.1-12.0); Hemoglobin 12.5 g/dL (12.2-16.2); Lymphocytes # 1.2 K/mm3 (0.7-4.5); Lymphocytes % 10.6 % (10-50); Mean Corpuscular HGB Conc 33.9 g/dL (31.8-35.4); Mean Corpuscular Hemoglobin 33.3 pg (27.0-31.2); Mean Corpuscular Volume 98.2 fl (81-99); Monocytes # 1.1 K/mm3 (0.1-1.0); Monocytes % 9.5 % (1.7-9.3); Neutrophils % 79.1 % (37.0-80.0); Platelet Count 238 K/mm3 (142-424); Red Blood Count 3.77 M/mm3 (4.20-5.40); Red Cell Distribution Width 13.8 % (11.5-17.5); White Blood Count 11.4 K/mm3 (4.8-10.8)
[2024-03-26 14:31] LABS: Coronavirus 19, PCR Not Detected (NotDetected); Influenza A, PCR Not Detected (NotDetected); Influenza B, PCR Not Detected (NotDetected)
[2024-03-26 14:37] LABS: Alanine Aminotransferase 19 U/L (12-78); Albumin Level 3.6 g/dl (3.5-5.0); Albumin/Globulin Ratio 1.3 (1.1-1.8); Alkaline Phosphatase 42 U/L (38-126); Anion Gap 11.1 mEq/L (5-15); Aspartate Amino Transferase 25 U/L (14-36); Bilirubin,Total 0.9 mg/dl (0.2-1.3); Blood Urea Nitrogen 16 mg/dl (7-17); Calcium 8.8 mg/dl (8.4-10.2); Carbon Dioxide 35 mmol/L (22.0-30.0); Chloride 97 mmol/L (98-107); Creatinine Clearance Estimated 59 mL/min (50-200); Estimated Glomerular Filt Rate 63 ml/min (>60); GFR (African American) 76 ML/MIN (>60); Globulin 2.7 g/dL (1.3-3.2); Glucose 108 mg/dl (74-100); Potassium 4.1 mmoL/L (3.5-5.1); Sodium 139 mmol/L (136-145); Total Protein,Serum 6.3 g/dl (6.3-8.2)
[2024-03-26 14:53] LABS: Troponin I < 0.01 ng/ml (0.00-0.034)
[2024-03-26 15:19] LABS: Microscopic, Urine URINE MICROSCOPIC (MICROSCOPIC)
[2024-03-26 15:27] LABS: Appearance,Urine CLEAR (Clear); Bilirubin,Urine Negative (Negative); Blood, Urine 2+ (Negative); Color,Urine YELLOW (Yellow); Glucose,Urine (UA) Negative (Negative); Ketones,Urine Negative (Negative); Leukocyte Esterase,Urine 3+ (Negative); Nitrate,Urine POSITIVE (Negative); Protein,Urine 1+ (Negative); Specific Gravity, Urine 1.015 (1.005-1.030)
[2024-03-26 15:50] LABS: Bacteria,Urine 4+ /lpf; RBC,Urine TNTC #/hpf (0-3); Squamous Epithelial Cell,Urine 20-50 #/hpf (0-5); WBC,Urine TNTC #/hpf (0-3)
[2024-03-26] MEDS: SULFA/TRIMETHOPRIM 1 TABLET 1 EACH PO (16:49)
--- NOTE | 2024-03-26 17:13 | PC.NURSE ---
Report called to Urszula at [facility].
[2024-03-27 09:47] LABS: HCV Ab Non Reactive (Non Reactive)
--- NOTE | 2024-03-27 13:09 | PC.NURSE ---
URINE CULTURE DISCUSSED WITH DR CHAMPION, NO NEW ORDERS
== END 2024-03-26 18:00 ==
PROVIDERS: Physician Assistant; Emergency Provider Emergency Medicine
DX: N39.0 Urinary tract infection, site not specified (principal)
CPT/HCPCS: 80053; 81001; 84484; 85025; 86803; 87086; 87088; 87186; 87636; 93005; 99284

== ENCOUNTER 2024-07-16 13:11 | Outpatient (CLI) | payer MEDICARE, MEDICAID, SELFPAY ==
--- NOTE | 2024-07-16 13:15 | CT_ITS ---
FINAL REPORT TECHNIQUE: Axial CT without IV contrast administration. Coronal and sagittal images were obtained and reviewed. This study was performed with techniques to keep radiation doses as low as reasonably achievable, (ALARA). Individualized dose reduction techniques using automated exposure control or adjustment of mA and/or kV according to the patient''s size were employed. CLINICAL HISTORY: Nodule follow-up COMPARISON: 07/10/2023 FINDINGS: There is a lingular nodule on image 42 measuring 6 mm which is unchanged. There is a 3 mm lingular nodule on image 40, also unchanged. Small nodule along the mid right major fissure on image 44 of series 2 measures 4 mm and is unchanged. Reticulonodular density within the right perihilar region is again noted and similar to the prior study. This is likely postinflammatory. Changes from emphysema are present. There is right lower lobe scarring. No pleural or pericardial effusion is seen. No adenopathy or mass lesion is present. IMPRESSION: Stable lung nodules, presumably inflammatory. Right perihilar reticulonodular density, likely related to previous infection. No new abnormality. Reviewed, Interpreted and Dictated by Santa Nolan MD Transcribed by Paulina Wolfe Authenticated and . [facility]
== END 2024-07-16 23:59 | disposition home or self-care (01) ==
LOC: RAD 13:13
PROVIDERS: PCP Family Medicine; Visit Provider Internal Medicine Pulmonary Disease
DX: R91.8 Other nonspecific abnormal finding of lung field (principal)
CPT/HCPCS: 71250

== ENCOUNTER 2024-08-14 07:40 | Outpatient (CLI) | payer MEDICARE, MEDICAID, SELFPAY ==
[2024-08-14 09:11] LABS: Iron 81 ug/dL (37-170)
[2024-08-14 09:12] LABS: Chol/HDL Ratio 5.8 (1-3.5); Cholesterol 150 mg/dl (140-200); HDL Cholesterol 26 mg/dl (40-60); Magnesium 1.5 mg/dl (1.6-2.3); Triglycerides 336 mg/dl (30-150); VLDL Cholesterol 67 mg/dL (0-40)
[2024-08-14 09:28] LABS: Total Iron Binding Capacity 319 ug/dL (265-497)
[2024-08-14 09:48] LABS: Ferritin 144 ng/ml (11.1-264)
[2024-08-14 12:54] LABS: Valproic Acid, (Depakene) 38.1 ug/ml (50-100)
== END 2024-08-14 23:59 | disposition home or self-care (01) ==
LOC: LAB 07:40
PROVIDERS: PCP Nurse Practitioner Family; Visit Provider Nurse Practitioner Family
DX: D50.9 Iron deficiency anemia, unspecified (principal); E78.5 Hyperlipidemia, unspecified; E83.42 Hypomagnesemia; Z86.59 Personal history of other mental and behavioral disorders
CPT/HCPCS: 36415; 80061; 80164; 82728; 83540; 83550; 83735

== ENCOUNTER 2024-09-05 10:28 | Outpatient (CLI) | payer MEDICARE, MEDICAID, SELFPAY | END 2024-09-05 23:59 | disposition home or self-care (01) | LOC: LAB.DROPOF 10:29 | PROVIDERS: PCP Family Medicine; Visit Provider Family Medicine | DX: R30.0 Dysuria (principal) ==

== ENCOUNTER 2024-09-06 07:04 | Outpatient (CLI) | payer MEDICARE, MEDICAID, SELFPAY ==
[2024-09-06 07:06] LABS: Microscopic, Urine URINE MICROSCOPIC (MICROSCOPIC)
[2024-09-06 07:49] LABS: Appearance,Urine CLEAR (Clear); Bilirubin,Urine Negative (Negative); Blood, Urine TRACE-I (Negative); Color,Urine YELLOW (Yellow); Glucose,Urine (UA) Negative (Negative); Ketones,Urine Negative (Negative); Leukocyte Esterase,Urine 2+ (Negative); Nitrate,Urine Negative (Negative); Protein,Urine TRACE (Negative); Urobilinogen,Urine 0.2 EU/dl (0.2)
[2024-09-06 08:22] LABS: RBC,Urine Occasional #/hpf (0-3)
[2024-09-06 08:23] LABS: Bacteria,Urine 4+ /lpf; Calcium Oxalate Crystals,Urine 1+ /lpf; Squamous Epithelial Cell,Urine Occasional #/hpf (0-5)
== END 2024-09-06 23:59 | disposition home or self-care (01) ==
PROVIDERS: PCP Nurse Practitioner Family; Visit Provider Nurse Practitioner Family
DX: R30.0 Dysuria (principal)
CPT/HCPCS: 81001; 87086; 87088; 87186

== ENCOUNTER 2024-09-19 11:23 | Outpatient (CLI) | payer MEDICARE, MEDICAID, SELFPAY ==
[2024-09-19 11:34] LABS: Microscopic, Urine URINE MICROSCOPIC (MICROSCOPIC)
[2024-09-19 11:38] LABS: Appearance,Urine TURBID (Clear); Bilirubin,Urine Negative (Negative); Blood, Urine 1+ (Negative); Color,Urine YELLOW (Yellow); Glucose,Urine (UA) Negative (Negative); Ketones,Urine Negative (Negative); Leukocyte Esterase,Urine 3+ (Negative); Nitrate,Urine POSITIVE (Negative); Protein,Urine 2+ (Negative); Urobilinogen,Urine 0.2 EU/dl (0.2)
[2024-09-19 11:43] LABS: PH,Urine >= 9.0 (5.0-8.5)
[2024-09-19 11:44] LABS: Amorphous Sediment,Urine 4+ /lpf; Bacteria,Urine 4+ /lpf; Squamous Epithelial Cell,Urine Occasional #/hpf (0-5); Triple Phosphate Crystal,Urine 3+ /lpf
== END 2024-09-19 23:59 | disposition home or self-care (01) ==
LOC: LAB 11:25
PROVIDERS: PCP Family Medicine; Visit Provider Family Medicine
DX: R41.9 Unspecified symptoms and signs involving cognitive functions and awareness (principal); R30.0 Dysuria
CPT/HCPCS: 81001; 87086; 87088; 87186

== ENCOUNTER 2024-11-06 07:41 | Outpatient (CLI) | payer MEDICARE, MEDICAID, SELFPAY ==
--- OUTSIDE RECORDS SUMMARY | 2024-09-11 11:50 | XMS_ITS | Continuity of Care Document ---
Author Organization [facility] Phone Care Team Providers Care Cabin Furnishings Installer Name Role Phone GABRIEL HOANG Admitting GABRIEL HOANG Unavailable NO, DEFINED P Primary Care Unavailable GABRIEL HOANG Primary Attending ALLERGIES AND ADVERSE REACTIONS ALLERGIES AND ADVERSE REACTIONS Code System Allergy Substance Adverse Reaction Date Reaction (Severity) Comment Status Reported By Updated [place] [id number] SNOMED CT Sulfa Antibiotics Rash active Patient [id number] on March 30, 2020 2:44:25 PM [place] 2231 RXNorm Keflex Rash active Patient [id number] on March 30, 2020 2:44:37 PM [place] 4053 RXNorm Erythromycin Drug-induce d nausea and vomiting active Patient [id number] on March 30, 2020 2:44:47 PM UTC Tramadol Adverse reaction to substance itching active Patient [id number] on March 30, 2020 2:44:57 PM UTC 00102 RXNorm Wellbutrin Adverse reaction to substance seizures active Patient [id number] on March 30, 2020 2:45:07 PM UTC 02234 RXNorm Lipitor Drug-induce d nausea and vomiting active Patient [id number] on March 30, 2020 2:45:17 PM UTC 1191 RXNorm ASPIRIN Adverse reaction to substance deathly sick active Patient [id number] on March 30, 2020 2:44:11 PM [place] [id number] SNOMED [address] NSAIDS Adverse reaction to substance deathly sick active Patient [id number] on March 30, 2020 2:44:11 PM UTC 4493 RXNorm Prozac Adverse reaction to substance anxiety active Patient [id number] on March 30, 2020 2:45:27 PM UTC 55485 RXNorm MOBIC Adverse reaction to substance feel weird active Patient [id number] on March 30, 2020 2:44:11 PM UTC FAMILY HISTORY RELATION: Father Status: Cause of : Unknown Age at : 85 SNOMED-CT Diagnosis Age At Onset Information not available RELATION: Mother Status: Cause of : Unknown Age at : 90 SNOMED-CT Diagnosis Age At Onset Information not available MEDICATIONS HOME MEDICATIONS Status RXNORM NDC Medication Dose Route Frequency Dates Comments Reported By Updated By Drug Treatment Unknown DISCHARGE MEDICATIONS Status RXNORM NDC Medication Dose Route Frequency Dates Comments Physician Updated By No Discharge Medication Info rmation Available INPATIENT MEDICATIONS Status RXNORM NDC Medication Dose Route Frequency Rat e Quantity Dates Comments Physician Updated By No Inpatient Medication Info rmation Available SOCIAL HISTORY SOCIAL HISTORY SNOMED-CT Social History Element Description Effective Dates Offered Cessation Comment UpdatedBy [id number] Historical Tobacco smoking status Never Smoked [id number] on August 08, 2022 12:34:38 PM [facility] SOCIAL HISTORY - Gender Sex: Female SOCIAL HISTORY - Status : status i nformation is not available Intention in Next Year: intention information is not available SOCIAL HISTORY - Sexual Behavior Sexual Orientation Gender Identity SNOMED-CT Description SNO MED -CT Description Activity Level No of Partners Partner Type UpdatedBy Information is not available HEALTH CONCERNS Problems Concern Status Health Concern problem infor mation not available. Smoking Status Status Years Used Consumed packs p er day Health Concern smoking histo ry information not available. Family History Concern Status Health Concern family histor y information not available. ENCOUNTERS ENCOUNTER INFORMATION Reason for Visit OV Admission September 09, 2024 12:30:00 PM [facility] G [address] [id number] Discharge September 09, 2024 12:30:00 PM [facility] D ISCHARGED TO HOME OR SELF CARE ENCOUNTER DIAGNOSES Notes information is not kylie ilable. Code System Diagnosis Onset Date Diagnosis information is not available. ABSTRACT DIAGNOSES Code System Diagnosis Updated By Z53.9 ICD10 PROCEDURE AND TR EATMENT NOT CARRIED OUT, UNSPECIFIED REASON [id number] on September 11, 2024 3:50:03 PM [facility] Z53.9 ICD10 PROCEDURE AND TR EATMENT NOT CARRIED OUT, UNSPECIFIED REASON [id number] on September 11, 2024 3:50:04 PM [facility] CARE TEAM Care Cabin Furnishings Installer Role GABRIEL HOANG Admitting GABRIEL HOANG Referring DEFINED NO Primary Care GABRIEL HOANG Primary Attending CARE TEAM CARE director product Role on Team Status Start Date End Date Update d By NO DEFINED PRIMARY C PCP normal September 09, 2024 4:00:00 AM [place] September 09, 2024 12:30:00 PM [place] [id number] on September 09, 2024 12:32:16 PM [facility] NATALYA MONTANO Referring normal September 09, 2024 4:00:00 AM [place] September 09, 2024 12:30:00 PM [facility] [id number] on September 09, 2024 12:32:16 PM [facility] NATALYA MONTANO Attending normal September 09, 2024 4:00:00 AM [facility] September 09, 2024 12:30:00 PM [facility] [id number] on September 09, 2024 12:32:16 PM [facility] NATALYA MONTANO Admitting normal September 09, 2024 4:00:00 AM [facility] September 09, 2024 12:30:00 PM [facility] [id number] on September 09, 2024 12:32:16 PM [facility]
--- OUTSIDE RECORDS SUMMARY | 2024-09-24 08:39 | XMS_ITS | Continuity of Care Document ---
Author Organization [facility] Phone Care Team Providers Care Python Consultant Name Role Phone GABRIEL HOANG Admitting GABRIEL HOANG Primary Attending [phone] 20 NO, DEFINED P Primary Care Unavailable GABRIEL HOANG Surgeon GABRIEL HOANG Unavailable ALLERGIES AND ADVERSE REACTIONS ALLERGIES AND ADVERSE REACTIONS Code System Allergy Substance Adverse Reaction Date Reaction (Severity) Comment Status Reported By Updated [place] [id number] SNOMED CT Sulfa Antibiotics Rash active Patient [id number] on March 30, 2020 2:44:25 PM [place] 2232 RXNorm Keflex Rash active Patient [id number] on March 30, 2020 2:44:37 PM [place] 4053 RXNorm Erythromycin Drug-induce d nausea and vomiting active Patient [id number] on March 30, 2020 2:44:47 PM UTC Tramadol Adverse reaction to substance itching active Patient [id number] on March 30, 2020 2:44:[place] [address] RXNorm Wellbutrin Adverse reaction to substance seizures active Patient [id number] on March 30, 2020 2:45:[place] [address] RXNorm Lipitor Drug-induce d nausea and vomiting active Patient [id number] on March 30, 2020 2:45:17 PM UTC 1191 RXNorm ASPIRIN Adverse reaction to substance deathly sick active Patient [id number] on March 30, 2020 2:44:11 PM [place] [id number] [place] NSAIDS Adverse reaction to substance deathly sick active Patient [id number] on March 30, 2020 2:44:11 PM UTC 4493 RXNorm Prozac Adverse reaction to substance anxiety active Patient [id number] on March 30, 2020 2:45:[place] [address] RXNorm MOBIC Adverse reaction to substance feel weird active Patient [id number] on March 30, 2020 2:44:11 PM UTC [...] Description Effective Dates Offered Cessation Comment UpdatedBy [id number] Historical Tobacco smoking status Never Smoked [id number] on August 08, 2022 12:34:38 PM [facility] SOCIAL HISTORY - Gender Sex: Female [...] INFORMATION Reason for Visit OV Admission September 16, 2024 1:31:[address] [id number] Discharge September 16, 2024 1:31:00 PM [facility] DISCH ARGED TO HOME OR SELF CARE ENCOUNTER DIAGNOSES Notes information is not kylie ilable. Code System Diagnosis Onset Date Diagnosis information is not available. 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, LUMBAR REGION WITHOUT MENTION OF LUMBAR BACK PAIN OR LOWER EXTREMITY PAIN [id number] on September 24, 2024 12:39:18 PM UTC M25.561 ICD10 PAIN IN RIGHT KNEE [id number] o n September 24, 2024 12:39:18 PM UTC M25.562 ICD10 PAIN IN LEFT KNEE [id number] on September 24, 2024 12:39:18 PM UTC R20.2 ICD10 PARESTHESIA OF SKIN [id number] on September 24, 2024 12:39:18 PM UTC M25.511 ICD10 PAIN IN RIGHT SHOULDER [id number] on September 24, 2024 12:39:18 PM UT Z88.1 ICD10 ALLERGY STATUS T O OTHER ANTIBIOTIC AGENTS [id number] on September 24, 2024 12:39:18 PM UT Z88.5 ICD10 ALLERGY STATUS TO NARCOTIC A GENT [id number] on September 24, 2024 12:39:18 PM UTC Z88.6 ICD10 ALLERGY STATUS TO ANALGESIC AGENT [id number] on September 24, 2024 12:39:18 PM UT Z88.7 ICD10 ALLERGY STATUS TO SERUM AND VACCINE [id number] on September 24, 2024 12:39:18 PM [place] CARE TEAM Care Python Consultant Role GABRIEL HOANG Admitting GABRIEL HOANG Primary Attending DEFINED NO Primary Care GABRIEL HOANG Surgeon GABRIEL HOANG Referring CARE TEAM CARE environmental engineering aide Role on Team Status Start Date End Date Update d By NATALYA MONTANO Surgeon normal September 16, 2024 1:31:00 PM [facility] September 16, 2024 1:31:00 PM [place] [id number] on September 24, 2024 12:39:25 PM [place] NO DEFINED PRIMARY C PCP normal September 16, 2024 4:00:00 AM [facility] September 16, 2024 1:31:00 PM UT [id number] on September 24, 2024 12:39:25 PM [place] NATALYA MONTANO Referring normal September 16, 2024 4:00:00 AM [facility] September 16, 2024 1:31:00 PM [place] [id number] on September 24, 2024 12:39:25 PM [facility] NATALYA MONTANO Attending normal September 16, 2024 4:00:00 AM [facility] September 16, 2024 1:31:00 PM [facility] [id number] on September 24, 2024 12:39:25 PM [facility] NATALYA MONTANO Admitting normal September 16, 2024 4:00:00 AM [facility] September 16, 2024 1:31:00 PM [facility] [id number] on September 24, 2024 12:39:25 PM [facility]
--- OUTSIDE RECORDS SUMMARY | 2024-11-06 07:46 | XMS_ITS | Data Portability ---
Author Organization [place] - [facility] [place] [facility] [place] ADMIN Address [address] [place] [address] Assessment Encounter Date Assessment Date Assessment LastModified by Organization Details LastModified Time 12/14/2022 12/14/2022 Ms. Molina has a history of lumbar degenerative disc disease, congenital elephantiasis, and right knee osteoarthritis presented in our clinic for chronic pain management. The patient is S/P intrathecal pain pump implant. The patient has a history of recurrent UTI. Patient presents today for f/up imaging and pump assessment. She reports that since the last pump increase, her back pain has improved, however, it is not adequately controlling her pain. Pain today is 6/10. A cervical MRI was ordered at last visit but the patient has not heard anything about scheduling. Originally the patient was unsure of efficacy of ITPP Therapy, and was concerned for confusion with pump therapy. I had planned to decrease pump settings to a low enough dose in anticipation of replacing pump medication with saline. Patient realized with decrease that the pump was efficatious. In an effort to better optimize ITPP therapy I will perform a pump increase today. I had a detailed discussion with the patient regarding pump therapy, and being compliant with home health nurses for pump refills. The patient verbalized understanding. She complains of neck pain with radicular symptoms down the LUE with numbness/tingling and feelings of weakness with gripping and lifting for greater than 6 months. She has treated with heat. We are awaiting cervical MRI prior to considering any further interventional treatment. Patient will f/up one month for post imaging and pump assessment. Analysis and reprogramming of the pain pump was done today Intrathecal medication: morphine (5.0 mg/mL) Daily dose: 0.3499 mg/day Changes made: 0.3002 mg/day to 0.3499 mg/day (+16.6%) Bolus: None Residual volume: 5.4 mL Estimated PETEY: <28 months Low reservoir alarm date: 01/31/23 * Pump increase in clinic today * Follow Up: 4 weeks for reassessment/post imaging ------- I have discussed in great detail our potential treatment options which would include a rehabilitative approach to care. This program would include medication management, Physical Therapy, consideration for interventional procedures as appropriate, and lifestyle modification (diet, weight loss, exercise, smoking/tobacco cessation, holistic approach including meditation and yoga). The patient understands and agrees prior to proceeding with this plan. _ __ __ __ __ __ __ __ __ __ __ __ __ __ __ __ __ __ __ __ __ __ __ __ __ __ __ __ _ RECORDS REVIEW: As per clinic policy, we will have the patient sign a release to obtain previous imaging and clinical notes. -- PROCEDURE: I counseled the patient extensively and informed of the risks of the procedure, including the risk of paralysis, nerve damage, respiratory arrest, arrhythmias, stroke, weakness, and infection, which although very low, could result in or disability. The patient acknowledged to me that they understand and accept these risks. RN EDUCATION Extensive coordination of care provided by RN to educate patient on upcoming procedure and to coordinate obtaining extensive incoming medical records. _ __ __ __ __ __ __ __ __ __ __ __ __ __ __ __ __ __ __ __ __ __ __ __ __ __ __ __ _ PSYCH: Pain affecting Neuro-psych behavior was discussed. Discussed about pain psychological counseling as a part of the multimodal approach to pain treatment. _ __ __ __ __ __ __ __ __ __ __ __ __ __ __ __ __ __ __ __ __ __ __ __ __ __ __ __ _ REHABILITATION: Discussed with the patient the importance of diet, daily physical activity and PT. Discussed with the patient the need to be scheduled for physical therapy since physical therapy will prolong the benefits of the procedure and interventions. _ __ __ __ __ __ __ __ __ __ __ __ __ __ __ __ __ __ __ __ __ __ __ __ __ __ __ __ _ ADAM: [id number] I have reviewed patient's ADAM report prior to prescribing Schedule II, III, and IV medications that require review by law. [email or web address] Not available 12/15/2022 08:10:09 01/24/2023 01/24/2023 Ms. Molina has a history of lumbar degenerative disc disease, congenital elephantiasis, and right knee osteoarthritis presented in our clinic for chronic pain management. The patient is S/P intrathecal pain pump implant. The patient has a history of recurrent UTI. Patient presents today for f/up imaging and pump assessment. She reports that since the last pump increase, her back pain has improved, however, it is not adequately controlling her pain. A cervical MRI was ordered previously but the patient has not heard anything about scheduling. I will re-order a cervical MRI today to be done at [facility]. Originally the patient was unsure of efficacy of ITPP Therapy, and was concerned for confusion with pump therapy. I had planned to decrease pump settings to a low enough dose in anticipation of replacing pump medication with saline. Patient realized with decrease that the pump was efficacious. In an effort to better optimize ITPP therapy I will perform a pump increase today. I had a detailed discussion with the patient regarding pump therapy, and being compliant with home health nurses for pump refills. The patient verbalized understanding. She complains of neck pain with radicular symptoms down the LUE with numbness/tingling and feelings of weakness with gripping and lifting for greater than 6 months. She has treated with heat. We are awaiting cervical MRI prior to considering any further interventional treatment. Patient will f/up one month for post imaging and pump assessment. Analysis and reprogramming of the pain pump was done today * Pump increase in clinic today * Order: Cervical MRI * Follow Up: 4 weeks for reassessment/post imaging ---- I have discussed in great detail our potential treatment options which would include a rehabilitative approach to care. This program would include medication management, Physical Therapy, consideration for interventional procedures as appropriate, and lifestyle modification (diet, weight loss, exercise, smoking/tobacco cessation, holistic approach including meditation and yoga). The patient understands and agrees prior to proceeding with this plan. _ __ __ __ __ __ __ __ __ __ __ __ __ __ __ __ __ __ __ __ __ __ __ __ __ __ __ __ _ RECORDS REVIEW: As per clinic policy, we will have the patient sign a release to obtain previous imaging and clinical notes. -- PROCEDURE: I counseled the patient extensively and informed of the risks of the procedure, including the risk of paralysis, nerve damage, respiratory arrest, arrhythmias, stroke, weakness, and infection, which although very low, could result in or disability. The patient acknowledged to me that they understand and accept these risks. RN EDUCATION Extensive coordination of care provided by RN to educate patient on upcoming procedure and to coordinate obtaining extensive incoming medical records. _ __ __ __ __ __ __ __ __ __ __ __ __ __ __ __ __ __ __ __ __ __ __ __ __ __ __ __ _ PSYCH: Pain affecting Neuro-psych behavior was discussed. Discussed about pain psychological counseling as a part of the multimodal approach to pain treatment. _ __ __ __ __ __ __ __ __ __ __ __ __ __ __ __ __ __ __ __ __ __ __ __ __ __ __ __ _ REHABILITATION: Discussed with the patient the importance of diet, daily physical activity and PT. Discussed with the patient the need to be scheduled for physical therapy since physical therapy will prolong the benefits of the procedure and interventions. _ __ __ __ __ __ __ __ __ __ __ __ __ __ __ __ __ __ __ __ __ __ __ __ __ __ __ __ ADAM: [id number] I have reviewed patient's ADAM report prior to prescribing Schedule II, III, and IV medications that require review by law. [email or web address] Not available 01/24/2023 13:46:08 08/21/2023 08/21/2023 Ms. Molina has a history of lumbar degenerative disc disease, congenital elephantiasis, and right knee osteoarthritis presented in our clinic for chronic pain management. The patient is S/P intrathecal pain pump implant. The patient has a history of recurrent UTI. Patient presents today for f/up pump assessment. She reports that since the last pump increase, her back pain has improved. Originally the patient was unsure of efficacy of ITPP Therapy, and was concerned for confusion with pump therapy. I had planned to decrease pump settings to a low enough dose in anticipation of replacing pump medication with saline. Patient realized with decrease that the pump was efficacious. Due to success of ITPP therapy, I will maintain dosage today.. I had a detailed discussion with the patient regarding pump therapy, and being compliant with home health nurses for pump refills. The patient verbalized understanding. Patient will f/up 6 months for pump assessment. Analysis and reprogramming of the pain pump was done today * Continue current pump dosage. * Follow Up: 6 months for reassessment ---- I have discussed in great detail our potential treatment options which would include a rehabilitative approach to care. This program would include medication management, Physical Therapy, consideration for interventional procedures as appropriate, and lifestyle modification (diet, weight loss, exercise, smoking/tobacco cessation, holistic approach including meditation and yoga). The patient understands and agrees prior to proceeding with this plan. _ __ __ __ __ __ __ __ __ __ __ __ __ __ __ __ __ __ __ __ __ __ __ __ __ __ __ __ _ RECORDS REVIEW: As per clinic policy, we will have the patient sign a release to obtain previous imaging and clinical notes. -- PROCEDURE: I counseled the patient extensively and informed of the risks of the procedure, including the risk of paralysis, nerve damage, respiratory arrest, arrhythmias, stroke, weakness, and infection, which although very low, could result in or disability. The patient acknowledged to me that they understand and accept these risks. RN EDUCATION Extensive coordination of care provided by RN to educate patient on upcoming procedure and to coordinate obtaining extensive incoming medical records. _ __ __ __ __ __ __ __ __ __ __ __ __ __ __ __ __ __ __ __ __ __ __ __ __ __ __ __ _ PSYCH: Pain affecting Neuro-psych behavior was discussed. Discussed about pain psychological counseling as a part of the multimodal approach to pain treatment. _ __ __ __ __ __ __ __ __ __ __ __ __ __ __ __ __ __ __ __ __ __ __ __ __ __ __ __ _ REHABILITATION: Discussed with the patient the importance of diet, daily physical activity and PT. Discussed with the patient the need to be scheduled for physical therapy since physical therapy will prolong the benefits of the procedure and interventions. _ __ __ __ __ __ __ __ __ __ __ __ __ __ __ __ __ __ __ __ __ __ __ __ __ __ __ __ ADAM: [id number] I have reviewed patient's ADAM report prior to prescribing Schedule II, III, and IV medications that require review by law. [email or web address] Not available 08/22/2023 15:51:14 05/06/2024 05/06/2024 Ms. Molina has a history of lumbar degenerative disc disease, congenital elephantiasis, and right knee osteoarthritis presented in our clinic for chronic pain management. The patient is S/P intrathecal pain pump implant. The patient has a history of recurrent UTI. [email or web address] Not available 05/06/2024 18:19:17 09/16/2024 09/16/2024 Ms. Molina has a history of lumbar degenerative disc disease, congenital elephantiasis, and right knee osteoarthritis presented in our clinic for chronic pain management. The patient is S/P intrathecal pain pump implant. The patient has a history of recurrent UTI. - pump refill [email or web address] Not available 09/17/2024 16:18:01 Plan of Treatment Reminders Order Date Submit Date Provider Last Modified By Organization Details Last Modified Time Details Appointments OV EST 15 2024 09:30A M Nicholas Guzman MD Not available Not available Not available Lab None recorded. Referral None recorded. Procedures intrathec al pump refill (PROC) 2024 025 [email or web address] Nicholas Guzman MD, [address], [address], [place], [address], 09/25/2024 11:50:01 subacromi al injection (PROC) - , 38823 Right subacromi al bursa 2024 025 [email or web address] Nicholas Guzman MD, [address], [address], [place], [address], 10/08/2024 16:15:31 intrathec al pump refill (PROC) - refill with morphine 3 mg/mL 2023 024 [email or web address] Not available 07/04/2024 15:48:35 Surgeries None recorded. 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 2022 023 [email or web address] [facility] ([facility]), [address], [place], [address], 02/21/2023 14:09:32 Medication Orders None recorded. Patient TargetsNo targets recorded. Patient Instructions Encounter Date Encounter Id Patient Instructions Last Modified By Organization Details Last Modified Time 05/06/2024 [id number] I have discussed in great detail our potential treatment options which would include a rehabilitative approach to care. This program would include medication management, Physical Therapy, consideration for interventional procedures as appropriate, and lifestyle modification (diet, weight loss, exercise, smoking/tobacco cessation, holistic approach including meditation and yoga). The patient understands and agrees prior to proceeding with this plan. _ __ __ __ __ __ __ __ __ __ __ __ __ __ __ __ __ __ __ __ __ __ __ __ __ __ __ __ _ RECORDS REVIEW: As per clinic policy, we will have the patient sign a release to obtain previous imaging and clinical notes. PROCEDURE: I counseled the patient extensively and informed of the risks of the procedure, including the risk of paralysis, nerve damage, respiratory arrest, arrhythmias, stroke, weakness, and infection, which although very low, could result in or disability. The patient acknowledged to me that they understand and accept these risks. RN EDUCATION Extensive coordination of care provided by RN to educate patient on upcoming procedure and to coordinate obtaining extensive incoming medical records. _ __ __ __ __ __ __ __ __ __ __ __ __ __ __ __ __ __ __ __ __ __ __ __ __ __ __ __ _ PSYCH: Pain affecting Neuro-psych behavior was discussed. Discussed about pain psychological counseling as a part of the multimodal approach to pain treatment. _ __ __ __ __ __ __ __ __ __ __ __ __ __ __ __ __ __ __ __ __ __ __ __ __ __ __ __ _ REHABILITATION: Discussed with the patient the importance of diet, daily physical activity and PT. Discussed with the patient the need to be scheduled for physical therapy since physical therapy will prolong the benefits of the procedure and interventions. _ __ __ __ __ __ __ __ __ __ __ __ __ __ __ __ __ __ __ __ __ __ __ __ __ __ __ __ ADAM: [id number] I have reviewed patient's ADAM report prior to prescribing Schedule II, III, and IV medications that require review by law. [email or web address] Not available 05/06/2024 18:18:23 09/16/2024 [id number] I have discussed in great detail our potential treatment options which would include a rehabilitative approach to care. This program would include medication management, Physical Therapy, consideration for interventional procedures as appropriate, and lifestyle modification (diet, weight loss, exercise, smoking/tobacco cessation, holistic approach including meditation and yoga). The patient understands and agrees prior to proceeding with this plan. _ __ __ __ __ __ __ __ __ __ __ __ __ __ __ __ __ __ __ __ __ __ __ __ __ __ __ __ _ RECORDS REVIEW: As per clinic policy, we will have the patient sign a release to obtain previous imaging and clinical notes. PROCEDURE: I counseled the patient extensively and informed of the risks of the procedure, including the risk of paralysis, nerve damage, respiratory arrest, arrhythmias, stroke, weakness, and infection, which although very low, could result in or disability. The patient acknowledged to me that they understand and accept these risks. RN EDUCATION Extensive coordination of care provided by RN to educate patient on upcoming procedure and to coordinate obtaining extensive incoming medical records. _ __ __ __ __ __ __ __ __ __ __ __ __ __ __ __ __ __ __ __ __ __ __ __ __ __ __ __ _ PSYCH: Pain affecting Neuro-psych behavior was discussed. Discussed about pain psychological counseling as a part of the multimodal approach to pain treatment. _ __ __ __ __ __ __ __ __ __ __ __ __ __ __ __ __ __ __ __ __ __ __ __ __ __ __ __ _ REHABILITATION: Discussed with the patient the importance of diet, daily physical activity and PT. Discussed with the patient the need to be scheduled for physical therapy since physical therapy will prolong the benefits of the procedure and interventions. _ __ __ __ __ __ __ __ __ __ __ __ __ __ __ __ __ __ __ __ __ __ __ __ __ __ __ __ ADAM: I have reviewed patient's ADAM report prior to prescribing Schedule II, III, and IV medications that require review by law. [email or web address] Not available 09/17/2024 16:17:00 Reason for Referral None Reported. Problems Name Problem SNOMED Code Status Onset Date Resolution Date Notes Provider Name and Address Organization Details Recorded Time Degeneratio n of lumbar interverteb ral disc 87112309 Active 2023 Meggan Swain null, [place] - [facility] [place] & [place] 4 18:18:48 Chronic pain syndrome 146413703 Active 2023 Meggan Swain null, [place] [facility] [place] 4 18:18:53 Symbolic dysfunction 279684900 Active 2022 Angiskye Lantigua null, [place] [facility] [place] 3 11:21:45 Type 2 diabetes mellitus 28268644 Active 2022 Angi Lantigua null, [place] [facility] [place] 3 11:21:58 Vitamin D deficiency 17172695 Active 2022 Angi Lantigua null, [place] [facility] [place] 3 11:22:20 Hypercholes terolemia 75399730 Active 2022 Angiskye Lantigua null, [place] [facility] [place] & [place] 3 11:22:36 Hypokalemia 07476784 Active 2022 Angi Lantigua null, [place] [facility] [place] 3 11:22:42 Major depressive disorder 007092705 Active 2022 Angi Lantigua null, [place] [facility] [place] 3 11:22:49 Behavioral and emotional disorder with onset in childhood 689637891 Active 2022 Angi Lantigua null, [place] [facility] [place] 3 11:23:14 Neuropathy 057052986 Active 2022 Angi Lantigua [place], [place] [facility] 3 11:23:29 Lymphedema 063755004 Active 2022 Angi Lantigua null, [place] [facility] [place] 3 11:23:40 Gastroesoph ageal reflux disease 336822667 Active 2022 Angi Lantigua [place], [place] 3 11:23:49 Constipatio n 61521703 Active 2022 Angi Lantigua [place], [place] [facility] 3 11:23:54 Dysphagia 20062718 Active 2022 Angi Lantigua [place] [place] 3 11:24:23 Seizure 02005432 Active 2022 Angi Lantigua [place], [place] [facility] 3 11:24:48 Morbid obesity 988776491 Active 2022 Angi Lantigua [place] 3 11:24:59 Injury of head 77719856 Active 2022 Angi Lantigua [place], [place] [facility] [place] 3 11:25:20 Pain of bilateral knee joints 5356060024437 04 Active 2022 Meggan Swain null, [place] [facility] [place] 3 12:24:31 Myofascial pain 532503529 Active 2022 Meggan Mcgrawkins null, [place] [facility] [place] 3 12:24:32 Osteoarthri tis of left knee joint 6832550959621 09 Active 2022 Meggan Swain [place], [place] [facility] [place] 3 12:24:41 Osteoarthri tis of right knee joint 7637211126402 00 Active 2022 Meggan Swain [place], [place] [facility] [place] 3 12:53:37 Paresthesia of upper limb 55054270 Active 2022 Meggan Swain [place], [place] [facility] [place] 3 15:51:15 Pain in cervical spine 676951648 Active 2022 Meggan rolon [place] [facility] [place] 15:51:16 Problem Notes None recorded. Procedures Surgical History Date Name Laterality Status Provider Name and Address Organization Details Recorded Time 09/17/19 Intrathecal Drug (ITD) Pump Refill completed Gloria Mcdowell [place] - [facility] [place] 09/16/2024 14:08:48 09/17/19 25 PUMP CHANGES completed Gloria Mcdowell [place] [facility] [place] 09/16/2024 14:08:37 09/10/19 25 Intrathecal Drug (ITD) Pump Refill cancelled Selene HOWARD - [facility] - [place] [facility] [place] 09/05/2024 11:22:07 09/10/19 25 PUMP CHANGES cancelled Selene Earl [place] - [facility] [place] [facility] [place] 09/05/2024 11:22:07 05/06/20 24 Intrathecal Drug (ITD) Pump Refill completed Gloria Mcdowell AN[place] - [facility] [place] [facility] [place] 05/06/2024 16:51:22 05/06/20 24 PUMP CHANGES completed Meggan Swain AN[place] - [facility] [place] & [place] 05/06/2024 18:18:02 01/25/20 23 PUMP CHANGES completed Vivi HOWARD - [facility] [place] 01/24/2023 13:50:17 11/04/19 23 PUMP CHANGES completed Vivi HOWARD - [facility] [place] & [place] 11/03/2022 13:20:28 10/04/19 23 PUMP CHANGES completed ALETHEA GRULLON [address] , [place], [address], [place] [facility] [place] 10/04/2022 11:54:22 09/21/19 23 PUMP CHANGES completed Vivi HOWARD - [facility] - [place] & [place] 09/21/2022 08:03:23 07/12/19 23 PUMP CHANGES completed Meggan Swain [place] [facility] [place] 07/12/2022 12:59:56 Imaging Results None recorded. Procedure Notes None recorded. Medical Equipment None Reported. Allergies Allergen ID Allergen Name Allergen Category Reaction Reaction Severity Criticality Documentation Date Start Date Code Code System Note Provider Name and Address Organization Details Recorded Time 41719 tramadol medicatio n Not available Not available Not available 05/19/2022 42073 RxNorm NAITA Gonzalez [facility] & [place] 3 11:03:13 17841 Wellbutri n medicatio n Not available Not available Not available 05/19/2022 64916 RxNorm ANITA Gonzalez [facility] & [place] 3 11:03:20 75642 influenza virus vaccine, specific Not available Not available Not available Not available 05/19/2022 81550 UNK Angi rolon [facility] & [place] 3 11:03:38 25012 aspirin medicatio n Not available Not available Not available 05/19/2022 1191 RxNorm Angi rolon [facility] & [place] 3 11:03:45 87188 azithromy ammon medicatio n Not available Not available Not available 05/19/2022 10337 RxNorm ANITA Gonzalez [facility] & [place] 3 11:03:51 31534 Medicinal product containin g cephalosp brant and acting as antibacte rial agent (product) medicatio n Not available Not available Not available 05/19/2022 18647 9009 SNOMED ANITA Gonzalez [facility] & [place] 3 11:03:58 Medications Name Sig Start Date Stop Date Status Note LastModified by Organization Details LastModified Time furosemide 40 mg tablet active Not Available Not Available Not Available lidocaine HCl 10 mg/mL (1 %) injection solution active Not Available Not Available Not Available nitrofuranto in macrocrystal 50 mg capsule active Not Available Not Available Not Available atorvastatin 20 mg tablet active Not Available Not Available Not Available ipratropium 0.5 mg-albuterol 3 mg (2.5 mg base)/3 mL nebulization soln Inhale 3 mL 4 times a day by nebulizatio n route. active Not Available Not Available No t Available divalproex 250 mg tablet,delay ed release active Not Available Not Available N ot Available loperamide 2 mg capsule active Not Available Not Available N ot Available cetirizine 10 mg tablet active Not Available Not Available Not Available fluconazole 150 mg tablet active Not Available Not Available Not Available sulfamethoxa zole 400 mg-trimethop rim 80 mg tablet active Not Available Not Available Not Available Nystop 100,000 unit/gram topical powder active Not Available Not Available Not Available senna 8.6 mg tablet active Not Available Not Available Not Available sucralfate 100 mg/mL oral suspension active Not Available Not Available N ot Available sucralfate 1 gram tablet active Not Available Not Available Not Available ondansetron HCl 4 mg tablet active Not Available Not Available Not Available Milk of Magnesia 400 mg/5 mL oral suspension active Not Available Not Available N ot Available venlafaxine ER 150 mg capsule,exte nded release 24 hr Take 1 capsule every day by oral route. active Not Available Not Available No t Available meclizine 12.5 mg tablet Take 2 tablets 3 times a day by oral route. active Not Available Not Available No t Available dextromethor rowell-guaifen esin 10 mg-100 mg/5 mL oral syrup active Not Available Not Available Not Available divalproex 500 mg tablet,delay ed release Take 1 tablet twice a day by oral route. active Not Available Not Available No t Available sulfamethoxa zole 800 mg-trimethop rim 160 mg tablet active Not Available Not Available Not Available quetiapine 100 mg tablet Take 1 tablet twice a day by oral route. active Not Available Not Available No t Available acetaminophe n 500 mg tablet active Not Available Not Available Not Available bethanechol chloride 25 mg tablet Take 1 tablet 4 times a day by oral route. active Not Available Not Available No t Available ceftriaxone 1 gram solution for injection active Not Available Not Available No t Available potassium chloride ER 20 mEq tablet,exten ded release(part /cryst) active Not Available Not Available Not Available magnesium oxide 400 mg (241.3 mg magnesium) tablet active Not Available Not Available Not Available bisacodyl 10 mg rectal suppository active Not Available Not Available Not Available cephalexin 500 mg capsule active Not Available Not Available Not Available ferrous sulfate 325 mg (65 mg iron) tablet active Not Available Not Available Not Available nitrofuranto in macrocrystal 100 mg capsule active Not Available Not Available Not Available gabapentin 300 mg capsule Take 1 capsule 3 times a day by oral route. active Not Available Not Available No t Available omeprazole 20 mg capsule,florian yed release Take 1 capsule every day by oral route. active Not Available Not Available No t Available budesonide 0.5 mg/2 mL suspension for nebulization Inhale 2 mL twice a day by nebulizatio n route. active Not Available Not Available No t Available aspirin 81 mg chewable tablet active Not Available Not Available Not Available montelukast 10 mg tablet active Not Available Not Available Not Available mupirocin 2 % topical ointment APPLY A SMALL AMOUNT TO EACH NOSTRIL BY TOPICAL ROUTE 2 TIMES PER DAY FOR 5 DAYS active Not Available Not Available No t Available furosemide 20 mg tablet Take 1 tablet every day by oral route. active Not Available Not Available No t Available metoprolol succinate ER 25 mg tablet,exten ded release 24 hr active Not Available Not Available Not Available azelastine 137 mcg (0.1 %) nasal spray Witten 2 sprays twice a day by intranasal route. active Not Available Not Available No t Available polyethylene glycol 3350 17 gram/dose oral powder active Not Available Not Available Not Available estradiol 0.01% (0.1 mg/gram) vaginal cream active Not Available Not Available Not Available levofloxacin 750 mg tablet active Not Available Not Available Not Available fluticasone propionate 50 mcg/actuatio n nasal spray,suspen carolyn active Not Available Not Available Not Available fludrocortis one 0.1 mg tablet active Not Available Not Available Not Available terazosin 10 mg capsule active Not Available Not Available N ot Available cholecalcife rol (vitamin D3) 125 mcg (5,000 unit) capsule active Not Available Not Available Not Available gentamicin 0.1 % topical ointment active Not Available Not Available Not Available diazepam 5 mg tablet active Not Available Not Available No t Available amoxicillin 875 mg-potassium clavulanate 125 mg tablet active Not Available Not Available Not Available amoxicillin 500 mg-potassium clavulanate 125 mg tablet active Not Available Not Available Not Available Ventolin HFA 90 mcg/actuatio n aerosol inhaler active Not Available Not Available Not Available olanzapine 5 mg disintegrati ng tablet active Not Available Not Available No t Available ertapenem 1 gram solution for injection active Not Available Not Available No t Available morphine (PF) 10 mg/mL injection solution continuous intrathecal dose 2024 active Not Available Not Available Not Avai lable nitrofuranto in monohydrate/ macrocrystal s 100 mg capsule active Not Available Not Available Not Available omega-3 acid ethyl esters 1 gram capsule active Not Available Not Available Not Available acetaminophe n active Not Available Not Available Not Available lactulose active Not Available Not Marva ilable Not Available ferrous sulfate active Not Available Not Available Not Available albuterol sulfate active Not Available Not Available Not Available bisacodyl active Not Available Not Marva ilable Not Available ondansetron active Not Available Not A vailable Not Available lidocaine (PF) 10 mg/mL (1 %) injection solution active Not Available Not Available Not Available Symbicort 160 mcg-4.5 mcg/actuatio n HFA aerosol inhaler active Not Available Not Available Not Available cholecalcife rol (vitamin D3) 125 mcg (5,000 unit) tablet active Not Available Not Available Not Available Senexon-S 8.6 mg-50 mg tablet active Not Available Not Available Not Available Linzess 290 mcg capsule Take 1 capsule every day by oral route. active Not Available Not Available No t Available Vascepa 1 gram capsule active Not Available Not Available Not Available Abilify Maintena 400 mg intramuscula r suspension,e xtended release active Not Available Not Available Not Available Abilify Maintena 300 mg intramuscula r suspension,e xtended release active Not Available Not Available Not Available Breo Ellipta 100 mcg-25 mcg/dose powder for inhalation active Not Available Not Available N ot Available potassium chloride ER 20 mEq tablet,exten ded release active Not Available Not Available Not Available Azo Bladder Control active Not Available Not Available Not Available Azo Urinary Pain Relief 95 mg tablet active Not Available Not Available Not Available Vitals Date Recorded Body temperature Oxygen saturation Oxygen saturation in Arterial blood by Pulse oximetry Heart rate Systolic blood pressure Diastolic blood pressure Provider Name and Address Organization Details Last Updated DateTime 4 97.6 [degF] 91 % 91 % 60 /min 104 mm[Hg] 71 mm[Hg] [facility] [place] [facility] [place] 4 13:49:48 Date Recorded Body temperature Oxygen saturation Oxygen saturation in Arterial blood by Pulse oximetry Heart rate Systolic blood pressure Diastolic blood pressure Provider Name and Address Organization Details Last Updated DateTime 5 96.9 [degF] 98 % 98 % 81 /min 120 mm[Hg] 73 mm[Hg] Andriafang Oliver [place] [facility] [place] 5 08:55:54 Date Recorded Body temperature Oxygen saturation Oxygen saturation in Arterial blood by Pulse oximetry Heart rate Systolic blood pressure Diastolic blood pressure Provider Name and Address Organization Details Last Updated DateTime 5 97.5 [degF] 92 % 92 % 68 /min 109 mm[Hg] 55 mm[Hg] [facility] [place] [facility] [place] 5 09:59:17 Date Recorded Body weight Body temperature Oxygen saturation Oxygen saturation in Arterial blood by Pulse oximetry Systolic blood pressure Diastolic blood pressure Provider Name and Address Organization Details Last Updated DateTime 3 564262. 43 g 97 [degF] 95 % 95 % 143 mm[Hg] 72 mm[Hg] Mary Harvey [place] - [facility] [place] 3 11:42:18 Date Recorded Body temperature Oxygen saturation Oxygen saturation in Arterial blood by Pulse oximetry Heart rate Systolic blood pressure Diastolic blood pressure Provider Name and Address Organization Details Last Updated DateTime 3 96.9 [degF] 100 % 100 % 64 /min 123 mm[Hg] 70 mm[Hg] [facility] [place] [facility] [place] 3 13:25:55 Date Recorded Body temperature Oxygen saturation Oxygen saturation in Arterial blood by Pulse oximetry Heart rate Respiratory rate Systolic blood pressure Diastolic blood pressure Provider Name and Address Organization Details Last Updated DateTime 3 98.1 [degF] 99 % 99 % 63 /min 20 /min 113 mm[Hg] 57 mm[Hg] Gloria Mcdowell [place] [facility] [place] 3 11:11:46 Date Recorded Body temperature Oxygen saturation Oxygen saturation in Arterial blood by Pulse oximetry Heart rate Systolic blood pressure Diastolic blood pressure Provider Name and Address Organization Details Last Updated DateTime 4 98.3 [degF] 92 % 92 % 79 /min 119 mm[Hg] 69 mm[Hg] Andria HOWARD - [facility] [place] [facility] [place] 13:43:26 Social History None recorded. Functional Status None recorded. Mental Status None recorded. Family History Nothing Reported. Medical History No medical history recorded. Gynecological HistoryNo gynecological history recorded. Obstetrics History GPAL:G 0 P 0 0 0 0 Past Encounters Encounter ID Performer Location Encounter Start Date Encounter Closed Date Diagnosis/Indication Diagnosis SNOMED-CT Code Diagnosis ICD10 Code Diagnosis Note [id number] Nandini Dang NP [facility] [address] [facility] [address] [place] [address] 05/19/2022 10:29:45 05/19/2022 11:53:43 History of pancreatitis 7217181793 9107 Z87.19 - will recheck labs today- advised [facility] an order and check her urine for a UTI [id number] Nicholas Guzman MD [facility] [address] [facility] [place] [address] 07/12/2022 09:50:24 07/12/2022 11:14:21 Osteoarthritis of right knee joint [id number] 83370 M17.11 Myofascial pain 94840715 9 M79.10 Pain of bi lateral knee joints 4731977852 56195 M25.561 M25.562 Osteoarthr itis of left knee joint 5897003560 93519 M17.12 [id number] Nicholas Guzman MD [facility] [address] [facility] [place] [address] 09/20/2022 09:29:32 09/20/2022 11:12:41 Osteoarthritis of right knee joint 6564166381 43044 M17.11 Myofascial pain 67063721 9 M79.10 Pain of bi lateral knee joints 6056759290 78773 M25.561 M25.562 Osteoarthr itis of left knee joint 1083087531 50629 M17.12 [id number] Nicholas Guzman MD [facility] [address] [facility] [place] [address] 10/03/2022 09:41:12 10/03/2022 11:02:04 Osteoarthritis of right knee joint 6192664502 74700 M17.11 Myofascial pain 79923094 9 M79.10 Pain of bi lateral knee joints 6321229740 64232 M25.561 M25.562 Osteoarthr itis of left knee joint 8821788532 08704 M17.12 Pain in ce rvical spine 991789691 M54.2 Paresthesi a of upper limb 82910307 R20.2 [id number] Nicholas Guzman MD [facility] [address] [facility] [address] [place] [address] 11/03/2022 11:11:01 11/03/2022 11:32:16 Osteoarthritis of right knee joint 2565221296 27109 M17.11 Myofascial pain 95542026 9 M79.10 Pain of bi lateral knee joints 6315306458 19092 M25.561 M25.562 Osteoarthr itis of left knee joint 9491897651 99270 M17.12 Pain in ce rvical spine 376340114 M54.2 Paresthesi a of upper limb 14996358 R20.2 [id number] Nicholas Guzman MD [facility] [address] [place] [address] [place] [address] 12/14/2022 11:08:42 12/14/2022 12:20:50 Osteoarthritis of right knee joint 4407585941 71541 M17.11 Myofascial pain 56408600 9 M79.10 Pain of bi lateral knee joints 1685662190 58672 M25.561 M25.562 Osteoarthr itis of left knee joint 1790543233 87139 M17.12 Pain in ce rvical spine 580679948 M54.2 Paresthesi a of upper limb 27288100 R20.2 [id number] Nicholas Guzman MD [facility] [address] [facility],[address] [place] [address] 01/24/2023 13:07:36 01/24/2023 14:13:51 Osteoarthritis of right knee joint 9350204404 65081 M17.11 Myofascial pain 35671744 9 M79.10 Pain of bi lateral knee joints 9917116176 16013 M25.561 M25.562 Osteoarthr itis of left knee joint 0095010618 38595 M17.12 Pain in ce rvical spine 455339680 M54.2 Paresthesi a of upper limb 35567771 R20.2 [id number] Nicholas Guzman MD [facility] [address] [facility] [address] [place] [address] 08/21/2023 13:27:34 08/21/2023 14:09:53 Osteoarthritis of right knee joint 2696905022 82622 M17.11 Myofascial pain 41465512 9 M79.10 Pain of bi lateral knee joints 1425234865 69652 M25.561 M25.562 Osteoarthr itis of left knee joint 3543406066 08556 M17.12 Pain in ce rvical spine 375034152 M54.2 Paresthesi a of upper limb 73388637 R20.2 [id number] Nicholas Guzman MD [facility] [place] [address] 05/06/2024 13:07:48 05/06/2024 14:06:48 Chronic pain syndrome 052180382 G89.4 - It appears that ITPP therapy is effective and the patient is happy with her current dosing.- I will not make any changes to the pump today. Pump refill was conducted today as scheduled. - I will follow up for next pump refill. Pain of bi lateral knee joints 6945738959 48367 M25.561 M25.562 Paresthesi a of upper limb 82237567 R20.2 Degenerati on of lumbar intervertebral disc 83396327 M51.994 [id number] Nicholas Guzman MD [facility] [address] [place] [address] 09/16/2024 09:31:00 09/16/2024 11:05:15 Chronic pain syndrome 360448793 G89.4 - It appears that ITPP therapy is effective and the patient is happy with her current dosing.- I will not make any changes to the pump today. Pump refill was conducted today as scheduled. - I will follow up for next pump refill. Degenerati on of lumbar intervertebral disc 91624412 M51.369 Pain of bi lateral knee joints 5917042070 90910 M25.561 M25.562 Paresthesi a of upper limb 54505448 R20.2 Pain of ri ght shoulder joint 9703205400 0380167 M25.511 - The patient has right shoulder pain with positive Hawkin's sign.- I believe the pain is originatin g from the subacromia l bursa.- The patient has attempted to make lifestyle modificati ons, but pain continues to impede performing ADLs, thereby negatively affecting quality of life. I think the patient is a good candidate for interventi onal treatment, as their pain has been refractory to conservati ve (PT and/or physician- directed at-home exercises/ stretches) and pharmacolo gic approaches .- After a detailed discussion of treatment modalities and the respective risks/bene fits, I will proceed with performing a right subacromia l bursa injection in office today.- I will follow up in 2 weeks post injection. Health Concerns Section Related Observation LastModified by Organization Detai ls LastModified Time None Recorded Concern Status LastModified by Organization Details LastModified Time None Recorded Advance Directives Directive None Recorded Payers Insurance Date Sequence Insurance Name Policy Number Policy Stoner Covered Member ID Stoner Member ID Guarantor Name 09/13/2024 1 [place] Johanny Molina [id number] Johanny Molina 05/06/2024 2 [place] [id number] Johanny Molina [id number] Johanny Molina 05/06/2024 1 [place] [id number] Johanny Molina [id number] Johanny Molina 05/06/2024 3 [facility] (MEDICAID REPLACEMENT - HMO) Johanny Molina [id number] Johanny Molina 09/13/2024 2 MEDICAID-[facility] - FFS/TRADITIONA L Johanny Molina [id number] Johanny Molina Notes Date Note Type Note Provider Name and Address Organization Details Recorded Time 3 text/html Ms. Molina has a history of lumbar degenerative disc disease, congenital elephantiasis, and right knee osteoarthritis presented in our clinic for chronic pain management. The patient is S/P intrathecal pain pump implant. The patient has a history of recurrent UTI.Patient presents today for f/up imaging and pump assessment. She reports that since the last pump increase, her back pain has improved, however, it is not adequately controlling her pain. A cervical MRI was ordered at last visit but the patient has not heard anything about scheduling._ __ __ __ __ __ __ __ __ __ __ __ __ __ __ __ __ __ __ __ __ __ __ __ __ __ __Initial complaint: chronic back painOnset: several years ago, gradualContext: worsening over timeCharacter: Sharp throbbing aching painLocation: Lumbar, bilateral lower extremity and right kneeDuration: constantInitial Intensity: 5/10Worse: bending, stooping, standing, lying on the back, or carrying heavy loadsBetter: restAssociated symptoms: Denies saddle anaesthesia, denies acute bowel/bladder changes, denies acute power lossADLs: The patient's pain interferes with daily chores, exercise, sleep, relationships, and walking.Current Pain Medications: Intrathecal Morphine 5 mg/mLPrior Pain Medications: n/aNSAIDS/OTC- not helpfulNon-intervention al Tx: deniesSurgery: deniesPhysical Therapy: completed in pastInterventional Tx: deniesImaging/Studies: none Nicholas Guzman MD [address] [facility], [place], [address], [facility] [place] & [place] 12/15/2022 12:56:52 3 text/html Ms. Molina has a history of lumbar degenerative disc disease, congenital elephantiasis, and right knee osteoarthritis presented in our clinic for chronic pain management. The patient is S/P intrathecal pain pump implant. The patient has a history of recurrent UTI.Patient presents today for f/up imaging and pump assessment. She reports that since the last pump increase, her back pain has improved, however, it is not adequately controlling her pain. Today, the pain is 5/10._ __ __ __ __ __ __ __ __ __ __ __ __ __ __ __ __ __ __ __ __ __ __ __ __ __ __Initial complaint: chronic back painOnset: several years ago, gradualContext: worsening over timeCharacter: Sharp throbbing aching painLocation: Lumbar, bilateral lower extremity and right kneeDuration: constantInitial Intensity: 5/10Worse: bending, stooping, standing, lying on the back, or carrying heavy loadsBetter: restAssociated symptoms: Denies saddle anaesthesia, denies acute bowel/bladder changes, denies acute power lossADLs: The patient's pain interferes with daily chores, exercise, sleep, relationships, and walking.Current Pain Medications: Intrathecal Morphine 5 mg/mLPrior Pain Medications: n/aNSAIDS/OTC- not helpfulNon-intervention al Tx: deniesSurgery: deniesPhysical Therapy: completed in pastInterventional Tx: deniesImaging/Studies: none Nicholas Guzman MD [address] [facility], [place], [address], [facility] [place] [facility] [place] 01/25/2023 15:21:59 4 text/html Ms. Molina has a history of lumbar degenerative disc disease, congenital elephantiasis, and right knee osteoarthritis presented in our clinic for chronic pain management. The patient is S/P intrathecal pain pump implant. The patient has a history of recurrent UTI.Patient presents today for f/up and pump assessment. She reports that since the last pump increase, her back pain has improved. Today, the pain is 4/10._ __ __ __ __ __ __ __ __ __ __ __ __ __ __ __ __ __ __ __ __ __ __ __ __ __ __Initial complaint: chronic back painOnset: several years ago, gradualContext: worsening over timeCharacter: Sharp throbbing aching painLocation: Lumbar, bilateral lower extremity and right kneeDuration: constantInitial Intensity: 5/10Worse: bending, stooping, standing, lying on the back, or carrying heavy loadsBetter: restAssociated symptoms: Denies saddle anaesthesia, denies acute bowel/bladder changes, denies acute power lossADLs: The patient's pain interferes with daily chores, exercise, sleep, relationships, and walking.Current Pain Medications: Intrathecal Morphine 5 mg/mLPrior Pain Medications: n/aNSAIDS/OTC- not helpfulNon-intervention al Tx: deniesSurgery: deniesPhysical Therapy: completed in pastInterventional Tx: deniesImaging/Studies: none Nicholas Guzman MD [address] [facility], [place], [address], [facility] 08/22/2023 15:51:47 4 text/html Ms. Molina has a history of lumbar degenerative disc disease, congenital elephantiasis, and right knee osteoarthritis presented in our clinic for chronic pain management. The patient is S/P intrathecal pain pump implant. The patient has a history of recurrent UTI. The patient presents to the clinic today for intrathecal pain pump refill. She was receive refills at home through [facility], but they are no longer doing refills so she is having to come to clinic for future refills. The patient reports that she is happy with ITPP therapy and her pain is well-controlled at this time. Pain today is a 7/10. Initial complaint: chronic back painOnset: several years ago, gradualContext: worsening over timeCharacter: Sharp throbbing aching painLocation: Lumbar, bilateral lower extremity and right kneeDuration: constantInitial Intensity: 5/10Worse: bending, stooping, standing, lying on the back, or carrying heavy loadsBetter: restAssociated symptoms: Denies saddle anaesthesia, denies acute bowel/bladder changes, denies acute power lossADLs: The patient's pain interferes with daily chores, exercise, sleep, relationships, and walking.Current Pain Medications: Intrathecal Morphine 5 mg/mLPrior Pain Medications: n/aNSAIDS/OTC- not helpfulNon-intervention al Tx: deniesSurgery: deniesPhysical Therapy: completed in pastInterventional Tx: deniesImaging/Studies: none Nicholas Guzman MD [address], [place], [address], [facility] & [place] 05/10/2024 10:04:10 text/html Ms. Molina has a history of lumbar degenerative disc disease, congenital elephantiasis, and right knee osteoarthritis presented in our clinic for chronic pain management. The patient is S/P intrathecal pain pump implant. The patient has a history of recurrent UTI. The patient presents to the clinic today for intrathecal pain pump refill. The patient reports that she is happy with ITPP therapy and her pain is well-controlled at this time. The patient does complain of right shoulder pain today. Pain today is a 8/10. Initial complaint: chronic back painOnset: several years ago, gradualContext: worsening over timeCharacter: Sharp throbbing aching painLocation: Lumbar, bilateral lower extremity and right kneeDuration: constantInitial Intensity: 5/10Worse: bending, stooping, standing, lying on the back, or carrying heavy loadsBetter: restAssociated symptoms: Denies saddle anaesthesia, denies acute bowel/bladder changes, denies acute power lossADLs: The patient's pain interferes with daily chores, exercise, sleep, relationships, and walking.Current Pain Medications: Intrathecal Morphine 5 mg/mLPrior Pain Medications: n/aNSAIDS/OTC- not helpfulNon-intervention al Tx: deniesSurgery: deniesPhysical Therapy: completed in pastInterventional Tx: deniesImaging/Studies: none Nicholas Guzman MD [address], [place], [address], [facility] & [place] 09/20/2024 12:17:59 OBGyn Episode No OBEpisode recorded.
--- OUTSIDE RECORDS SUMMARY | 2024-11-06 07:46 | XMS_ITS | Clinical Summary ---
Author Organization [facility] Address [address] [place] [address] Phone Care Team Providers Care Hand Cutter Name Role Phone Unavailable Primary Care Provider Unavailabl e Allergies Active Allergy Reactions Criticality Noted Date Comments Aspirin Other (See Comments) 04/24/2022 Unknown Azithromycin Other (See Comments) 04/24/2022 Unknown Bupropion Other (See Comments) 10/22/2020 Unknown reaction or severity Cephalexin Other (See Comments) 04/24/2022 Unknown Nsaids (Non-Steroidal Anti-Inflammatory Drug) Other (See Comments) 04/24/2022 unknown Fluoxetine Other (See Comments) 04/24/2022 unknown Tramadol Other (See Comments) 04/24/2022 Unknown Bupropion Hcl Other (See Comments) 04/24/2022 Unknown Medications * This document contains information received from the source organization and may not represent a complete record from that organization. LORazepam (ATIVAN) 2 mg/mL Inj Syringe Give 1 ML IM x 1 now 1 mL 04/15/2022 Active OLANZapine (ZYPREXA ZYDIS) 5 mg Oral Tablet, Rapid Dissolve Take 1 Tablet by mouth every 4 hours as needed. 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 04/16/2022 Mood disorder 04/16/2022 Medical History Medical History Date Comments History of skin cancer Hypertension Hyperlipidemia Anemia History of fall Fracture of left patella Obesity Lymphedema Sleep apnea Pickwickian syndrome (HCC) Social History Tobacco Use Types Packs/Day Years Used Date Smoking Tobacco: Never Cigarettes Smokeless Tobacco: Never Tobacco Cessation:Counseling Given: Not Answered Alcohol Use Standard Drinks/Week Comments Not Currently 0 (1 standard drink = 0.6 oz pur e alcohol) Comments Unknown Sex and Gender Information Value Date Recorded Sex Assigned at Not on file Legal Sex Female 9:13 AM EDT Gender Identity Not on file Sexual Orientation Not on file Obstetrics History Last Filed Vital Signs Vital Sign Reading Time Taken Comments Blood Pressure 142/93 04/24/2022 10:03 AM EST Pulse 71 04/24/2022 10:03 AM EST Temperature 36.4 C (97.5 F) 04/24/2022 9:21 AM EST Respiratory Rate 13 04/24/2022 10:03 AM EST Oxygen Saturation 95% 04/24/2022 9:21 AM EST Inhaled Oxygen Concentration - - Weight - - Height - - Body Mass Index - - Plan of Treatment Health Maintenance Due Date Last Done Comments Wellness Exam Medicare 1962 Hepatitis C Screening 1977 Cervical Cancer Screening 1980 Pap Smear 1980 HPV/Pap Cotest 1989 Breast Cancer Screening 1999 Cologuard 2004 Colon Cancer Screening 2004 Colonoscopy 2004 FIT 2004 Sigmoidoscopy 2004 Virtual Colonography 2004 Zoster (1 of 2) 2009 Pneumococcal Vaccine 50+ (2 of 2 - PCV) 03/12/2014 03/12/2013 COVID-19 Vaccine (2023-2 5 season) 2024 Bone Density Screening 2024 Influenza Vaccine (Season Ended) 2025 03/12/2013, 03/07/2007 DTaP/TDaP/Td (3 - Td or Tdap) 12/06/2028, 10/27/2016, 07/10/1995 Hepatitis B Vaccine Aged Out No longe r eligible based on patient's age to complete this topic Meningococcal B Vaccine Aged Out No l onger eligible based on patient's age to complete this topic Insurance [place] MED[place] MED[place]ARE [place] PART A AND B
--- OUTSIDE RECORDS SUMMARY | 2024-11-06 07:46 | XMS_ITS | Patient Health Record ---
Author Organization [facility] Address [address] [facility] [address] [place], [place] [address] Care Team Providers Care Router Operator Pin Name Role Phone Anny Mario APRN Primary Care Provider Aster Parrish Unavailable [phone] Allergies Allergen (clinical drug ingredient) Drug/Non Drug Allergy documented on EMR Reaction Allergy Type Onset Date Status aspirin Aspirin Unknown Drug Allergy Active clindamycin Clindamycin HCl Unknown Drug Allergy Active doxycycline Doxycycline Hyclate Unknown Drug Allergy Active tamsulosin Flomax Unknown Drug Allergy Active ibuprofen Ibuprofen Unknown Drug Allergy Active Keflex Unknown Drug Allergy Active meloxicam Mobic Unknown Drug Allergy Active fluoxetine Prozac Unknown Drug Allergy Active Septra Unknown Drug Allergy Active bupropion Wellbutrin XL Unknown Drug Allergy Act harman Penicillin Unknown Drug Allergy Active Sulfa Unknown Drug Allergy Active Reason For Referral No Information Medications Medication SIG (Take, Route, Frequency, Duration) Notes Start Date End Date Status Lovaza 1 GM 2 capsules Orally Tw ice a day for 30 day(s) Active PriLOSEC 40 MG 1 capsule Orally Onc e a day for 30 day(s) Active Terazosin HCl 5 MG 1 capsule Orally Onc e a day for 30 day(s) Active Carafate 1 GM 1 tablet Orally Twic e a day for 30 day(s) Active MethylPREDNISolone (Yohan) Active Glucophage 500 MG as directed Orally Active Atorvastatin Calcium Active Phenergan 25 MG/ML 0.5 ml as needed Inj ection every 4 hrs Active Effexor XR 150 MG 1 capsule with food Orally Once a day for 30 day(s) Active Atenolol 50 MG 1 tablet Orally Once a day for 30 day(s) Active cloNIDine HCl 0.3 MG 1 tablet Orally Twi ce a day for 30 day(s) Active Lortab 5-500 MG 1 tablet as needed f or pain Orally every 6 hrs Active Ciprofloxacin HCl Ac tive Lasix 40 MG 1 tablet Orally Once a day for 30 day(s) Active Mucinex DM 30-600 MG as directed Orally Active tiZANidine HCl Activ e ZyrTEC Allergy 10 MG as directed Orally Active HYDROcodone-Acetaminophen Active SEROquel 100 MG 1 tablet at bedtime Orally Once a day for 30 day(s) Active Immunizations Vaccine Route Administration Date Status Comme nts Influenza Unknown 03/14/2017 Refused Social History Tobacco Use: Social History Observation Description Date Details (start date - stop date) Never Smoker NA - NA Tobacco Use/Smoking Question Answer Notes Are you a nonsmoker Problems Problem Type SNOMED Code ICD Code Onset Dates Problem Status W/U Status Risk Notes Problem NIDDM w/neuropathy (250.60) Active confirmed Problem Onychomycosis (031826252) Onychomycosis (110.1) Active confirmed Problem Peripheral vascular disease (089612330) PVD (440.29) Active confirmed Problem Edema (48008280) Edema (782.3) Active confirmed Problem 427012254 Cellulitis of foot without toes, right (L03.115) Active confirmed Problem 065171344 Blister (T14.8) Active confirmed Problem 47758257 Type 2 diabetes mellitus with diabetic neuropathy, without long-term current use of insulin (E11.40) Active confirmed Problem 475196726 Skin ulcer of to e of right foot, limited to breakdown of skin (L97.511) Active confirmed Problem 05318491 Skin ulcer of right foot, limited to breakdown of skin (L97.511) Active confirmed Plan Of Treatment No Information Insurance Providers Payer Name Payer Address Payer Phone Subscriber Number Group Number Insured Name Patient Relationship to Insured Coverage Start Date Coverage End Date [place] Medicare [address] [place] [address] [id number] Johanny Molina Self - patient is the insured [employer] Medicaid [address] [place], [place] [id number] Johanny Molina Self - patient is the insured Medical (General) History Medical History History ICD Code diabetes hypertension shortness of breath lung disease asthma gastritis Sinus headaches Surgical History Surgery Date(Month/Year) section hysterectomy bladder surgery melanoma excision kidney stones tubal ligation gall bladder D&C
--- OUTSIDE RECORDS SUMMARY | 2024-11-06 07:47 | XMS_ITS | Continuity of Care Document ---
Author Organization [facility] Address [address] [place] [address] Assessment Encounter Date Assessment Date Assessment LastModified by Organization Details LastModified Time 09/16/2024 09/16/2024 Ms. Molina has a history of lumbar degenerative disc disease, congenital elephantiasis, and right knee osteoarthritis presented in our clinic for chronic pain management. The patient is S/P intrathecal pain pump implant. The patient has a history of recurrent UTI. - pump refill [email or web address] Not available 09/17/2024 16:18:01 Plan of Treatment Reminders Order Date Submit Date Provider Last Modified By Organization Details Last Modified Time Details Appointments OV EST 15 2024 09:30A M Nicholas Guzman MD Not available Not available Not available Lab None recorded. Referral None recorded. Procedures intrathec al pump refill (PROC) 2024 025 [email or web address] Nicholas Guzman MD, [address] [facility], [address], [place], [address], 09/25/2024 11:50:01 subacromi al injection (PROC) - 34901, 07585 Right subacromi al bursa 2024 025 Nicholas Guzman MD, [address] [facility], [address], [place], [address], 10/08/2024 16:15:31 Surgeries None recorded. Imaging None recorded. Medication Orders None recorded. Patient TargetsNo targets recorded. Patient Instructions Encounter Date Encounter Id Patient Instructions Last Modified By Organization Details Last Modified Time 09/16/2024 [id number] I have discussed in great detail our [...] IV medications that require review by law. [email or web address] Not available 09/17/2024 16:17:00 Reason for Referral None Reported. Problems Name Problem SNOMED Code Status Onset Date Resolution Date Notes Provider Name and Address Organization Details Recorded Time Degeneratio n of lumbar interverteb ral disc 44772293 Active 2023 Meggan Swain null, [place] - [facility] - [place] 4 18:18:48 Chronic pain syndrome 332348321 Active 2023 Meggan Swain [place], [place] [facility] [place] 4 18:18:53 Symbolic dysfunction 277619315 Active 2022 Angi Lantigua null, [place] [facility] [place] 3 11:21:45 Type 2 diabetes mellitus 58882388 Active 2022 Angi Lantigua [place] 3 11:21:58 Vitamin D deficiency 97749823 Active 2022 Angi Lantigua [place] 3 11:22:20 Hypercholes terolemia 41995778 Active 2022 Angi Lantigua [place] [place] 3 11:22:36 Hypokalemia 18509563 Active 2022 Angi Lantigua [place] [place] 3 11:22:42 Major depressive disorder 288334671 Active 2022 Angi Lantigua null[place] [facility] [place] 3 11:22:49 Behavioral and emotional disorder with onset in childhood 406086814 Active 2022 Angi Lantigua [place] 3 11:23:14 Neuropathy 060243922 Active 2022 Angi Lantigua [place] 3 11:23:29 Lymphedema 140563669 Active 2022 Angi Lantigua [place] 3 11:23:40 Gastroesoph ageal reflux disease 191814375 Active 2022 Angi Lantigua [place] 3 11:23:49 Constipatio n 04315828 Active 2022 Angi Lantigua [place] 3 11:23:54 Dysphagia 60520599 Active 2022 Angi Lantig[place] 3 11:24:23 Seizure 20312240 Active 2022 Angi Lantigua [place] 3 11:24:48 Morbid obesity 163493296 Active 2022 nAgi Lantigua [place] 3 11:24:59 Injury of head 42786618 Active 2022 Angi Lantigua [place] 3 11:25:20 Pain of bilateral knee joints 8621315207918 04 Active 2022 Meggan Swain [place] 3 12:24:31 Myofascial pain 706996996 Active 2022 Meggan Swain [place] 3 12:24:32 Osteoarthri tis of left knee joint 4416930181975 09 Active 2022 Meggan Swain [place] 3 12:24:41 Osteoarthri tis of right knee joint 9661056090933 00 Active 2022 Meggan rolon, [place] 3 12:53:37 Paresthesia of upper limb 40487020 Active 2022 Meggan rolon, [place] 3 15:51:15 Pain in cervical spine 391013789 Active 2022 Meggan Swain [place] 3 15:51:16 Problem Notes None recorded. Procedures Surgical History Date Name Laterality Status Provider Name and Address Organization Details Recorded Time 09/17/19 25 Intrathecal Drug (ITD) Pump Refill completed Gloria Mcdowell [place] [facility] [place] 09/16/2024 14:08:48 09/17/19 25 PUMP CHANGES completed Gloria Mcdowell [place] [place] 09/16/2024 14:08:37 09/10/19 25 Intrathecal Drug (ITD) Pump Refill cancelled Selene Ealr [place] - [facility] - [place] 09/05/2024 11:22:07 09/10/19 25 PUMP CHANGES cancelled Selene [place] - [facility] - [place] 09/05/2024 11:22:07 05/06/20 24 Intrathecal Drug (ITD) Pump Refill completed Gloria HOW[place] - [facility] - [place] 05/06/2024 16:51:22 05/06/20 24 PUMP CHANGES completed Meggan wSain [place] 05/06/2024 18:18:02 01/25/20 23 PUMP CHANGES completed Viiv Ramírez [place] 01/24/2023 13:50:17 11/04/19 23 PUMP CHANGES completed Vivi Ramírez [place] 11/03/2022 13:20:28 10/04/19 23 PUMP CHANGES completed ALETHEA GRULLON [address] [facility], [place], [address], [place] 10/04/2022 11:54:22 09/21/19 23 PUMP CHANGES completed Vivi Daniels [facility] & [place] 09/21/2022 08:03:23 07/12/19 23 PUMP CHANGES completed Meggan Daniels [facility] & [place] 07/12/2022 12:59:56 Imaging Results None recorded. Procedure Notes None recorded. Medical Equipment None Reported. Allergies Allergen ID Allergen Name Allergen Category Reaction Reaction Severity Criticality Documentation Date Start Date Code Code System Note Provider Name and Address Organization Details Recorded Time 44505 tramadol medicatio n Not available Not available Not available 05/19/2022 68546 RxNorm [facility] [place] 3 11:03:13 53902 Wellbutri n medicatio n Not available Not available Not available 05/19/2022 89941 RxNorm [facility] [place] 3 11:03:20 97717 influenza virus vaccine, specific Not available Not available Not available Not available 05/19/2022 77283 UNK [facility] [place] 3 11:03:38 14664 aspirin medicatio n Not available Not available Not available 05/19/2022 1191 RxNorm ANITA Gonzalez JE[facility] & [place] 3 11:03:45 83257 azithromy ammon medicatio n Not available Not available Not available 05/19/2022 25316 RxNorm ANITA Gonzalez [facility] & [place] 3 11:03:51 66665 Medicinal product containin g cephalosp brant and acting as antibacte rial agent (product) medicatio n Not available Not available Not available 05/19/2022 09099 9009 SNOMED ANITA Gonzalez [facility] & [place] 3 11:03:58 Medications Name Sig Start Date [...] azelastine 137 mcg (0.1 %) nasal spray Odanah 2 sprays twice a day by intranasal [...] % 68 /min 109 mm[Hg] 55 mm[Hg] Selene Adonis [place] - [facility] [place] 5 09:59:17 Social History None recorded. Functional Status None recorded. Mental Status None recorded. Family History Nothing Reported. Medical History No medical history recorded. Gynecological HistoryNo gynecological history recorded. Obstetrics History GPAL:G 0 P 0 0 0 0 Past Encounters Encounter ID Performer Location Encounter Start Date Encounter Closed Date Diagnosis/Indication Diagnosis SNOMED-CT Code Diagnosis ICD10 Code Diagnosis Note [id number] Nicholas Guzman MD [facility] [address] [place] [id number] 09/16/2024 09:31:00 09/16/2024 11:05:15 Chronic pain syndrome 269102973 G89.4 - It appears that ITPP therapy is effective and the patient is happy with her current dosing.- I will not make any changes to the pump today. Pump refill was conducted today as scheduled. - I will follow up for next pump refill. Degenerati on of lumbar intervertebral disc 42254146 M51.369 Pain of bi lateral knee joints 7444917284 66247 M25.561 M25.562 Paresthesi a of upper limb 38616589 R20.2 Pain of ri ght shoulder joint 8901013017 1278969 M25.511 - The patient has right shoulder [...] by Organization Details LastModified Time None Recorded Payers Encounter Date Sequence Insurance Name Policy Number Policy Stoner Covered Member ID Stoner Member ID Guarantor Name 09/16/2024 2 MEDICAID-[facility] - FFS/TRADITIO NAL Johanny Molina [id number] Joahnny Molina 09/16/2024 1 [place] Johanny Molina [id number] Johanny Molina Notes Date Note Type Note Provider Name and Address Organization Details Recorded Time text/html Ms. Molina has a history of [...] pastInterventional Tx: deniesImaging/Studies: none Nicholas Guzman MD [address] [facility], [place], [address], [facility] & [place] 09/20/2024 12:17:59 OBGyn Episode No OBEpisode recorded.
[2024-11-06 07:58] LABS: Basophils # 0.1 K/mm3 (0-0.2); Eosinophils # 0.2 Kmm3 (0.0-0.4); Eosinophils % 3.9 % (0.1-12.0); Hematocrit 36.1 % (37.0-47.0); Hemoglobin 11.9 g/dL (12.2-16.2); Immature Granulocytes # 0.08 10^3uL; Immature Granulocytes % 1.3 %; Lymphocytes # 2.5 K/mm3 (0.7-4.5); Lymphocytes % 40.4 % (10-50); Mean Corpuscular Hemoglobin 31.6 pg (27.0-31.2); Mean Corpuscular Volume 95.8 fl (81-99); Mean Platelet Volume 9.6 fl (7.4-10.4); Monocytes # 0.4 K/mm3 (0.1-1.0); Monocytes % 7.1 % (1.7-9.3); Neutrophils # 2.9 K/mm3 (1.8-7.8); Neutrophils % 46.3 % (37.0-80.0); Nucleated Red Blood Cells # 0 10^3/uL; Nucleated Red Blood Cells % 0 %; Platelet Count 221 K/mm3 (142-424); Red Blood Count 3.77 M/mm3 (4.20-5.40); Red Cell Distribution Width 12.4 % (11.5-17.5); Red Cell Distribution Width-SD 42.9 fL; White Blood Count 6.2 K/mm3 (4.8-10.8)
[2024-11-06 08:16] LABS: Albumin Level 3.7 g/dl (3.5-5.0); Chloride 97 mmol/L (98-107)
[2024-11-06 08:17] LABS: Potassium 3.7 mmoL/L (3.5-5.1); Sodium 139 mmol/L (136-145)
[2024-11-06 08:19] LABS: Alanine Aminotransferase 16 U/L (12-78); Albumin/Globulin Ratio 1.6 (1.1-1.8); Alkaline Phosphatase 45 U/L (38-126); Anion Gap 13.7 mEq/L (5-15); Aspartate Amino Transferase 19 U/L (14-36); Bilirubin,Total 0.3 mg/dl (0.2-1.3); Blood Urea Nitrogen 21 mg/dl (7-17); Carbon Dioxide 32 mmol/L (22.0-30.0); Estimated Glomerular Filt Rate 63 ml/min (>60); GFR (African American) 76 ML/MIN (>60); Globulin 2.3 g/dL (1.3-3.2)
[2024-11-06 08:20] LABS: Calcium 9.2 mg/dl (8.4-10.2); Chol/HDL Ratio 5.2 (1-3.5); Cholesterol 124 mg/dl (140-200); Glucose 97 mg/dl (74-100); HDL Cholesterol 24 mg/dl (40-60); Magnesium 1.8 mg/dl (1.6-2.3); Triglycerides 273 mg/dl (30-150); VLDL Cholesterol 55 mg/dL (0-40)
[2024-11-06 08:31] LABS: Direct LDL Cholesterol 47.25 mg/dL (100-129)
[2024-11-06 09:29] LABS: Hemoglobin A1C 6.7 % (4.0-6.0)
== END 2024-11-06 23:59 | disposition home or self-care (01) ==
PROVIDERS: PCP Family Medicine; Visit Provider Nurse Practitioner Family
DX: E87.6 Hypokalemia (principal); E83.42 Hypomagnesemia; I10 Essential (primary) hypertension; Z13.1 Encounter for screening for diabetes mellitus
CPT/HCPCS: 36415; 80053; 80061; 83036; 83735; 85025

== ENCOUNTER 2024-12-20 07:11 | Outpatient (CLI) | payer MEDICARE, MEDICAID, SELFPAY ==
--- OUTSIDE RECORDS SUMMARY | 2024-12-20 07:13 | XMS_ITS | Patient Health Record ---
Author Organization [facility] Address [address] [facility] [address] [place], [place] [address] Care Team Providers Care Project Management Instructor Name Role Phone Anny Mario APRN Primary Care Provider Aster Parrish Unavailable [phone] Allergies Allergen (clinical drug ingredient) Drug/Non Drug Allergy documented on EMR Reaction Allergy Type Onset Date Status aspirin Aspirin Unknown Drug Allergy Active clindamycin Clindamycin HCl Unknown Drug Allergy Active Doxycycline Hyclate Unknown Drug Allergy Active tamsulosin [...] GM 2 capsules Orally Tw ice a day; Duration: 30 day(s) Active PriLOSEC 40 MG 1 capsule Orally Onc e a day; Duration: 30 day(s) Active Terazosin HCl 5 MG 1 capsule Orally Onc e a day; Duration: 30 day(s) Active Carafate 1 GM 1 tablet Orally Twic e a day; Duration: 30 day(s) Active MethylPREDNISolone (Yohan) Active Glucophage 500 MG as directed Orally Active Atorvastatin Calcium Active Phenergan 25 MG/ML 0.5 ml as needed Inj ection every 4 hrs Active Effexor XR 150 MG 1 capsule with food Orally Once a day; Duration: 30 day(s) Active Atenolol 50 MG 1 tablet Orally Once a day; Duration: 30 day(s) Active cloNIDine HCl 0.3 MG 1 tablet Orally Twi ce a day; Duration: 30 day(s) Active Lortab 5-500 MG 1 tablet as needed f or pain Orally every 6 hrs Active Ciprofloxacin HCl Ac tive Lasix 40 MG 1 tablet Orally Once a day; Duration: 30 day(s) Active Mucinex DM 30-600 MG as directed Orally Active tiZANidine HCl Activ e ZyrTEC Allergy 10 MG as directed Orally Active HYDROcodone-Acetaminophen Active SEROquel 100 MG 1 tablet at bedtime Orally Once a day; Duration: 30 day(s) Active Immunizations Vaccine Route Administration Date Status Comme nts Influenza Unknown 03/14/2017 Refused Social History Tobacco Use: Social History Observation Description Date Details (start date - stop date) Never Smoker NA - NA Tobacco Use/Smoking Question Answer Notes Are you a nonsmoker Problems Problem Type SNOMED Code ICD Code Onset Dates Problem Status W/U Status Risk Notes Problem Neurologic disorder associated with type II diabetes mellitus (691667280) NIDDM w/neuropathy (250.60) Active confirmed Problem Onychomycosis (694091554) Onychomycosis (110.1) Active confirmed Problem Peripheral vascular disease (769869261) PVD (440.29) Active confirmed Problem Edema (69003392) Edema (782.3) Active confirmed Problem Cellulitis of right lower limb (7806310971708035 4) Cellulitis of foot without toes, right (L03.115) Active confirmed Problem Blister (121909) Blister (T14.8) Active confirm ed Problem Diabetic peripheral neuropathy associated with type 2 diabetes mellitus (8189999022934) Type 2 diabetes mellitus with diabetic neuropathy, without long-term current use of insulin (E11.40) Active confirmed Problem Ulcer of toe of right foot (disorder) (9637630397996628 1) Skin ulcer of toe of right foot, limited to breakdown of skin (L97.511) Active confirmed Problem Ulcer of right foot (disorder) (294356459) Skin ulcer of right foot, limited to breakdown of skin (L97.511) Active confirmed Plan Of Treatment No Information Insurance Providers Payer Name Payer Address Payer Phone Subscriber Number Group Number Insured Name Patient Relationship to Insured Coverage Start Date Coverage End Date [place] Medicare [address] [place] [address] [id number] Johanny Molina Self - patient is the insured [place] [employer] [address] [place], [place] [phone] [id number] Johanny Molina Self - patient is the insured Medical (General) History Medical History History ICD Code diabetes hypertension shortness of breath lung disease asthma gastritis Sinus headaches Surgical History Surgery Date(Month/Year) section hysterectomy bladder surgery melanoma excision kidney stones tubal ligation gall bladder D&C
--- OUTSIDE RECORDS SUMMARY | 2024-12-20 07:13 | XMS_ITS | Clinical Summary ---
Author Organization [facility] Address [address] [place] [address] Phone Care Team Providers Care Track Watchman Name Role Phone Unavailable Primary Care Provider [...] 2 - PCV) 03/12/2014 03/12/2013 COVID-19 Vaccine ( - 2023-2 5 season) 2024 Bone Density Screening 2024 Influenza Vaccine (#1) 2025 3, 03/07/2007 DTaP/TDaP/Td (3 - Td or Tdap) 12/06/2028, 10/27/2016, 07/10/1995 Hepatitis B Vaccine Aged Out No longe r eligible based on patient's age to complete this topic Meningococcal B Vaccine Aged Out No l onger eligible based on patient's age to complete this topic Insurance [place] PART A [place] MED[place] MEDICARE [place] PART A AND B
[2024-12-20 07:14] LABS: Microscopic, Urine URINE MICROSCOPIC (MICROSCOPIC)
[2024-12-20 08:26] LABS: Bilirubin,Urine Negative (Negative); Color,Urine YELLOW (Yellow); Glucose,Urine (UA) Negative (Negative); Ketones,Urine Negative (Negative); Leukocyte Esterase,Urine 2+ (Negative); PH,Urine 7.5 (5.0-8.5); Protein,Urine Negative (Negative); Specific Gravity, Urine 1.010 (1.005-1.030); Urobilinogen,Urine 1.0 EU/dl (0.2)
[2024-12-20 08:41] LABS: Bacteria,Urine 3+ /lpf
== END 2024-12-20 23:59 | disposition home or self-care (01) ==
PROVIDERS: PCP Family Medicine; Visit Provider Family Medicine
DX: R30.0 Dysuria (principal)
CPT/HCPCS: 81001; 87086; 87088; 87186

== ENCOUNTER 2025-01-06 21:51 | Emergency (ER) | payer MEDICARE, MEDICAID, SELFPAY ==
[2025-01-06 21:46] VITALS: BP 148/111; PULSE 87; O2SAT 85
[2025-01-06 21:47] VITALS: BP 148/111; PULSE 75; RESP 16; TEMP 36.8; O2SAT 94; BMI 38.7
[2025-01-06 21:58] LABS: Microscopic, Urine URINE MICROSCOPIC (MICROSCOPIC)
--- NOTE | 2025-01-06 21:58 | HMH.EDGENADL ---
Discharge Plan Disposition Patient Disposition: Home, Self-Care Condition: Good Prescriptions Prescriptions: New cefadroxil 500 mg capsule 500 mg PO BID 7 Days Qty: 14 0RF No Action fenofibrate nanocrystallized 145 mg tablet 145 mg PO DAILY cranberry fruit 450 mg tablet 900 mg PO DAILY Rx Instructions: administer with a meal metformin 500 mg tablet 500 mg PO BID lisinopril 5 mg tablet 5 mg PO DAILY cetirizine [Zyrtec] 10 mg tablet 10 mg PO DAILY Abilify Maintena 300 mg suspension,extended rel syring 300 mg IM MONTHLY divalproex 500 mg tablet,delayed release (DR/EC) 500 mg PO BID potassium chloride 20 mEq tablet extended release 20 meq PO DAILY phenazopyridine [Azo Urinary Pain Relief] 95 mg tablet 190 mg PO TID PRN (Reason: UTI symptoms) guaifenesin [Robafen] 100 mg/5 mL liquid 200 mg PO Q4H PRN magnesium hydroxide [Milk of Magnesia] 400 mg/5 mL suspension 2,400 mg PO DAILY PRN fluticasone propionate [Flonase Allergy Relief] 50 mcg/actuation spray,suspension 2 spray intranasal DAILY Rx Instructions: administer into each nostril sucralfate 1 gram tablet 1 g PO BID venlafaxine 150 mg capsule,extended release 24hr 150 mg PO DAILY terazosin 10 mg capsule 10 mg PO HS cholecalciferol (vitamin D3) 125 mcg (5,000 unit) capsule 125 mcg PO DAILY icosapent ethyl [Vascepa] 1 gram capsule 2 g PO BID sennosides [senna] 8.6 mg tablet 17.2 mg PO BID Artificial Tears([id number]) 1-0.2-0.2 % drops 1 drp ophthalmic (eye) Q6HP PRN (Reason: dry eye(s)) Rx Instructions: each eye loperamide 2 mg capsule 2 mg PO Q6H PRN (Reason: Diarrhea) meclizine 12.5 mg tablet 12.5 mg PO BIDP azelastine 137 mcg (0.1 %) aerosol,spray 1 spray intranasal BID Rx Instructions: administer into each nostril estradiol [Estrace] 0.01 % (0.1 mg/gram) cream 1 g vaginal .Twice Weekly montelukast [Singulair] 10 mg tablet 10 mg PO HS fluticasone furoate-vilanterol [Breo Ellipta] 100-25 mcg/dose blister with device 1 inh inhalation DAILY Qty: 60 2RF magnesium oxide 400 mg magnesium tablet 400 mg PO DAILY Qty: 14 0RF gabapentin 300 mg capsule 300 mg PO TID Qty: 90 5RF polyethylene glycol 3350 17 GM powder in packet 17 gm PO DAILY albuterol sulfate 8.5 GM HFA aerosol inhaler 2 inh IH Q6HP PRN (Reason: shortness of breath or wheezing) bisacodyl 10 MG suppository 10 mg RC DAILYP PRN (Reason: Constipation) lactulose 20 GM/30 ML solution 30 ml PO DAILYP PRN (Reason: Constipation) Linzess 290 mcg Capsule 290 mcg PO HS bethanechol chloride 25 MG tablet 25 mg PO QID 30 Days Qty: 0 0RF furosemide 40 mg tablet 40 mg PO DAILY aspirin 81 mg Tablet,Delayed Release (Dr/Ec) 81 mg PO DAILY atorvastatin [Lipitor] 20 mg tablet 20 mg PO HS metoprolol succinate [Toprol XL] 25 mg tablet extended release 24 hr 12.5 mg PO HS Rx Instructions: take 0.5 tablet daily ondansetron HCl 4 MG tablet 4 mg PO TIDP PRN (Reason: Nausea) acetaminophen 500 MG tablet 500 mg PO Q6HP PRN (Reason: Pain) ferrous sulfate 325 MG tablet 325 mg PO TID omeprazole 20 MG tablet,delayed release (DR/EC) 20 mg PO DAILY fludrocortisone 0.1 MG tablet 0.1 mg PO DAILY Activity Restrictions/Add. Instructions Additional Instructions/Restrictions: You do have significant stool burden, you should continue taking stool softeners. Clinical Impressions Clinical Impression: Recurrent UTI Instructions Patient Instructions: DI for Acute Abdominal Pain Print Language Print Language: Kinyarwanda Discharge ED Provider: Elida Summers Adult HPI General Chief complaint: Abdominal Pain Stated complaint: Pain Time Seen by Provider: 01/06/25 21:58 Mode of Arrival: Ambulatory Source of Information: Patient Description of Symptoms (Recalled from ER Triage Doc. by RN): pt presents to the Ed d/t pelvic pain, burning with urination. and abdominal pain. pt coming from [facility], is alert and oriented. History of Present Illness HPI narrative: Patient is an otherwise healthy 64-year-old female who presented to the emergency department with suprapubic abdominal pain as well as urinary symptoms. Patient states that she had a urinary tract infection previously and completed a course of antibiotics within the last month. Patient states that she does have some left-sided flank pain as well. Patient reports nausea but no vomiting. Patient has not had any fevers. Patient denies any upper abdominal pain. Patient denies any chest pain or shortness of breath. Related Data Home Medications ?Medication ?Instructions ?Recorded ?Confirmed acetaminophen 500 mg tablet 500 mg PO Q6HP PRN Pain 04/17/20 12/19/24 ferrous sulfate 325 mg (65 mg 325 mg PO TID Supplement 04/17/20 12/19/24 iron) tablet fludrocortisone 0.1 mg tablet 0.1 mg PO DAILY Adrenal disease 04/17/20 12/19/24 omeprazole 20 mg tablet,delayed 20 mg PO DAILY acid reflux 04/17/20 12/19/24 release ondansetron HCl 4 mg tablet 4 mg PO TIDP PRN Nausea 04/17/20 12/19/24 polyethylene glycol 3350 17 gram 17 gm PO DAILY CONSTIPATION 10/12/20 12/19/24 oral powder packet albuterol sulfate 90 mcg/actuation 2 inh inhalation Q6HP PRN 03/13/21 12/19/24 aerosol inhaler shortness of breath or wheezing bisacodyl 10 mg rectal suppository 10 mg LA DAILYP PRN Constipation 03/14/21 12/19/24 lactulose 20 gram/30 mL oral 30 ml PO DAILYP PRN Constipation 03/14/21 12/19/24 solution linaclotide 290 mcg capsule 290 mcg PO HS Irritable bowel 04/27/22 12/19/24 (Linzess) syndrome aripiprazole 300 mg suspension, 300 mg IM MONTHLY 01/11/23 12/19/24 extended rel. intramuscular syringe (Brandon Mcclellan) cetirizine 10 mg tablet (Zyrtec) 10 mg PO DAILY 01/11/23 12/19/24 azelastine 137 mcg (0.1 %) nasal 1 spray intranasal BID 04/18/23 12/19/24 spray estradiol 0.01% (0.1 mg/gram) 1 g vaginal .Twice Weekly 04/18/23 12/19/24 vaginal cream (Estrace) loperamide 2 mg capsule 2 mg PO Q6H PRN Diarrhea 04/18/23 12/19/24 meclizine 12.5 mg tablet 12.5 mg PO BIDP Dizziness 04/18/23 12/19/24 montelukast 10 mg tablet 10 mg PO HS 04/18/23 12/19/24 (Singulair) peg [id number] 1 1 drp ophthalmic (eye) Q6HP PRN 04/18/23 12/19/24 %-0.2 %-0.2 % eye drops dry eye(s) (Artificial Tears ([id number])) divalproex 500 mg tablet,delayed 500 mg PO BID 07/13/23 12/19/24 release potassium chloride 20 mEq 20 meq PO DAILY 08/08/23 12/19/24 tablet,extended release aspirin 81 mg tablet,delayed 81 mg PO DAILY 02/16/24 12/19/24 release atorvastatin 20 mg tablet (Lipitor) 20 mg PO HS 02/16/24 12/19/24 furosemide 40 mg tablet 40 mg PO DAILY 02/16/24 12/19/24 metoprolol succinate 25 mg 12.5 mg PO HS 02/16/24 12/19/24 tablet,extended release 24 hr (Toprol XL) fluticasone propionate 50 2 spray intranasal DAILY 03/26/24 12/19/24 mcg/actuation nasal spray,suspension (Flonase Allergy Relief) magnesium hydroxide 400 mg/5 mL 2,400 mg PO DAILY PRN 03/26/24 12/19/24 oral suspension (Milk of Magnesia) phenazopyridine 95 mg tablet (Azo 190 mg PO TID PRN UTI symptoms 03/26/24 12/19/24 Urinary Pain Relief) guaifenesin 100 mg/5 mL oral 200 mg PO Q4H PRN 05/30/24 12/19/24 liquid (Robafen) cholecalciferol (vitamin D3) 125 125 mcg PO DAILY 06/04/24 12/19/24 mcg (5,000 unit) capsule icosapent ethyl 1 gram capsule 2 g PO BID 06/04/24 12/19/24 (Vascepa) sucralfate 1 gram tablet 1 g PO BID 06/04/24 12/19/24 terazosin 10 mg capsule 10 mg PO HS 06/04/24 12/19/24 venlafaxine 150 mg 150 mg PO DAILY 06/04/24 12/19/24 capsule,extended release 24 hr sennosides 8.6 mg tablet (senna) 17.2 mg PO BID 08/13/24 12/19/24 cranberry fruit 450 mg tablet 900 mg PO DAILY 09/19/24 12/19/24 fenofibrate nanocrystallized 145 145 mg PO DAILY 09/19/24 12/19/24 mg tablet lisinopril 5 mg tablet 5 mg PO DAILY 12/19/24 12/19/24 metformin 500 mg tablet 500 mg PO BID 12/19/24 12/19/24 Previous Rx's ?Medication ?Instructions ?Recorded bethanechol chloride 25 mg tablet 25 mg PO QID bladder control 30 04/29/22 days #0 tabs fluticasone furoate 100 1 inh inhalation DAILY #60 ea 07/26/23 mcg-vilanterol 25 mcg/dose inhalation powder (Breo Ellipta) magnesium oxide 400 mg PO DAILY #14 tabs 09/27/23 gabapentin 300 mg capsule 300 mg PO TID #90 caps 09/26/24 cefadroxil 500 mg capsule 500 mg PO BID 7 days #14 caps 01/06/25 Allergies Allergy/AdvReac Type Severity Reaction Status Date / Time aspirin Allergy Unknown Unknown Verified 01/06/25 23:54 allergy reaction azithromycin Allergy Unknown Unknown Verified 01/06/25 23:54 allergy reaction bupropion (From Wellbutrin Allergy Unknown Unknown Verified 01/06/25 23:54 SR) allergy reaction levofloxacin (From Levaquin) Allergy Unknown Unknown Verified 01/06/25 23:54 allergy reaction erythromycin base AdvReac Unknown Unknown Verified 01/06/25 23:54 allergy reaction tramadol AdvReac Unknown Unknown Verified 01/06/25 23:54 allergy reaction influenza vaccine AdvReac Unknown Unknown Uncoded 01/06/25 23:54 allergy reaction PFSH PFS Disclaimer: The information contained in this section may have been updated after the patient was seen, as this information can be updated by other users. 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 At risk for cardiovascular events. She cannot place/use her iVAPS unless she gets help from nursing staff. Mild LANCE currently on IVAP with a compliance including greater than 4 hours of 70%, AHI of 7.5, mainly hypopneas but high leak. Schizoaffective disorder, unspecified HTN (hypertension) Recurrent UTI Colon cancer screening Cardiac dysrhythmia Noted during the night of most recent BiPAP titration (April 2023) Pure hypercholesterolemia, unspecified Seizure disorder COPD (chronic obstructive pulmonary disease) Bilateral lower extremity edema Diabetic foot Lymphedema Onychomycosis Obesity (BMI 30-39.9) LANCE (obstructive sleep apnea) Sepsis History of MRSA infection of lungs Diabetes type 2, controlled Anxiety Acute hypoxemic respiratory failure Hospital-acquired pneumonia Chronic hypercapnic respiratory failure Dysphagia Elevated left ventricular end-diastolic pressure (LVEDP) CAD in [place] artery Hyperlipidemia Vitamin D deficiency, unspecified Obstructive sleep apnea (adult) (pediatric) Acute pancreatitis without necrosis or infection, unspecified Unspecified fracture of left patella, initial encounter for closed fracture Interstitial cystitis Hx of bipolar disorder Migraine GERD (gastroesophageal reflux disease) Depression Mild persistent asthma Personal history of sarcoidosis Multiple pulmonary nodules CHF (congestive heart failure) Anemia Surgical History Status post foot surgery Status post surgical removal of malignant neoplasm of skin History of sinus surgery History of hysterectomy History of dilation and curettage History of section History of colonoscopy Hx of cholecystectomy History of tonsillectomy Family History Other CHF (congestive heart failure) Social History Smoking Status: Former smoker alcohol intake: never substance use type: denies use current occupational status: unemployed Travel in the last 8 weeks?: None household members: caregiver housing: assisted living facility caffeine: No Other Medical History Have you received the Flu Vaccine for this season: No Have you received the Pneumonia Vaccine: Yes (2012) ROS Obtained: Yes All systems reviewed & no additional complaints except as documented and Yes Systems reviewed as appropriate & no additional complaints except as documented Physical Exam General General appearance: alert and in no apparent distress Head Head exam: atraumatic, normocephalic and normal inspection Eye Eye exam: Present normal appearance, PERRL and EOMI; Absent scleral icterus ENT ENT exam: Present normal exam and normal external ear exam Neck Neck exam: Present normal inspection and full ROM Chest Chest inspection: Present normal inspection and symmetric chest wall rise Respiratory Respiratory exam: Present normal lung sounds bilaterally; Absent respiratory distress or wheezes Cardiovascular Cardiovascular exam: Present regular rate, normal rhythm and normal heart sounds Abdominal Exam Abdominal exam: Present soft, distention, tenderness (suprapubic abdominal tenderness) and other (L CVA tenderness); Absent guarding or rebound Extremities Exam Extremities exam: Present normal inspection and full ROM Back Exam Back exam: Present normal inspection and full ROM Neurological Exam Neurological exam: Present alert and oriented X3 Psychiatric Psychiatric exam: Present normal affect and normal mood Skin Skin exam: Present warm and dry Medical Decision Making Medical Records Medical records reviewed: Yes I reviewed the patient's medical records. Screening: Per USPSTF and CDC recommendations, given the prevalence of disease in our region, it is our hospital?s policy to screen for HIV and viral Hepatitis for all patients aged 18 and over and those with ongoing risk factors. [place] Inquiry Pt receiving controlled substance: No Vital Signs: 01/06/25 21:46 01/06/25 21:47 01/06/25 22:11 Temperature 98.3 F Temperature Source Oral Pulse Rate 87 82 Pulse Rate [Right Radial] 75 Respiratory Rate 16 Blood Pressure 148/111 H 105/67 L Blood Pressure [Right Arm] 148/111 H Blood Pressure Mean Blood Pressure Mean [Right Arm] 123 Blood Pressure Position [Right Arm] Supine 02 Sat by Pulse Oximetry 85 L 94 L 94 L Oxygen Delivery Method Room Air 01/06/25 22:30 01/06/25 23:00 Temperature Temperature Source Pulse Rate Pulse Rate [Right Radial] Respiratory Rate Blood Pressure 115/65 99/62 L Blood Pressure [Right Arm] Blood Pressure Mean 75 72 Blood Pressure Mean [Right Arm] Blood Pressure Position [Right Arm] 02 Sat by Pulse Oximetry Oxygen Delivery Method Lab Data Lab results reviewed: Yes I reviewed the patient's lab results. Lab Results 01/06/25 21:49: Urine Color Yellow, Urine Appearance Cloudy, Urine pH 8.5, Ur Specific [place] 1.015, Urine Protein 1+ A, Urine Glucose (UA) Negative, Urine Ketones Negative, Urine Blood 2+ A, Urine Nitrate Positive A, Urine Bilirubin Negative, Urine Urobilinogen 1.0, Ur Leukocyte Esterase 2+ A, Ur Squamous Epith Cells Occasional, Amorphous Sediment 4+ 01/06/25 22:10: WBC 6.7, RBC 3.71 L, Hgb 11.6 L, Hct 35.5 L, MCV 95.7, MCH 31.3 H, MCHC 32.7, RDW 12.9, Plt Count 271, MPV 9.3, Neut % (Auto) 48.8, Lymph % (Auto) 37.4, [place] % (Auto) 9.6 H, Eos % (Auto) 2.1, Baso % (Auto) 0.9, Neut # (Auto) 3.3, Lymph # (Auto) 2.5, [place] # (Auto) 0.6, Eos # (Auto) 0.1, Baso # (Auto) 0.1, Sodium 137, Potassium 3.6, Chloride 98, Carbon Dioxide 31 H, Anion Gap 11.6, BUN 27 H, Creatinine 1.00, Estimated Creat Clear 96, Estimated GFR 56 L, Est GFR ( Amer) 67, Glucose 95, Calcium 9.3, Total Bilirubin 0.3, AST 30, ALT 21, Alkaline Phosphatase 39, Total Protein 6.5, Albumin 4.0, Globulin 2.5, Albumin/Globulin Ratio 1.6, Lipase 157 01/06/25 22:10 01/06/25 22:10 Orders (Tests/Meds): ED MEDICATIONS Generic Name Dose Route Start Last Admin Trade Name Freq PRN Reason Stop Dose Admin Ceftriaxone Sodium 2 gm/ 100 mls @ 200 mls/hr 01/06/25 23:45 01/06/25 23:59 Sodium Chloride IV 01/16/25 23:44 200 mls/hr Q24H OLGA Administration Sodium Chloride 10 ml 01/06/25 23:23 01/06/25 23:24 Sodium Chloride 0.9% 10ml Syr (Rad Only) IV 02/05/25 23:22 10 ml NEEDED PRN Administration Maintain IV Site Discontinued Medications Generic Name Dose Route Start Last Admin Trade Name Freq PRN Reason Stop Dose Admin Iopamidol 75 ml 01/06/25 23:23 01/06/25 23:24 Iopamidol-370 (76%);100ml Bottle IV 01/06/25 23:24 75 ml ONCE ONE Administration Ondansetron HCl 4 mg 01/06/25 22:19 01/06/25 22:24 Ondansetron 4mg/2ml Vial IV 01/06/25 22:20 4 mg ONCE ONE Administration ORDERS Category Date Time Status CT abdomen pelvis w con Stat Cat Scan 01/06/25 22:19 Completed CBC w/Auto Diff [Complete Blood Count Auto Diff] Stat Lab 01/06/25 22:10 Completed CMP [Comprehensive Metabolic Panel] Stat Lab 01/06/25 22:10 Completed Lipase Stat Lab 01/06/25 22:10 Completed Urinalysis and Microscopic Stat Lab 01/06/25 21:49 Completed Urine Culture Stat Micro 01/06/25 21:49 Received Medical Decision Narrative: Patient is a 64-year-old female with a past medical history of recurrent UTIs who presented to the emergency department with abdominal pain flank pain and urinary symptoms. On arrival, patient was hemodynamically stable with unremarkable vital signs. Differential includes but not limited to: urinary tract infection, pyelonephritis, nephrolithiasis, intra-abdominal abscess, bowel obstruction, constipation, amongst others. Patient's labs were reviewed and interpreted by myself: CBC showed no leukocytosis, hemoglobin was stable. CMP was unremarkable. Lipase normal. UA shows 2+ leuk esterase, nitrite positive. 4+ bacteria. CT scan of the abdomen was reviewed and interpreted by myself and showed no acute intra abdominal pathology except for a thickened bladder wall concerning for cystitis. Here in the emergency department patient remained hemodynamically stable. Patient had no fever, she was not septic appearing. Therefore at this time I felt that patient needed antibiotics given her urinary tract infection and concern for possible Gene given her left CVA tenderness. Patient was given a dose of Rocephin in the emergency department and patient was sent with cefadroxil. Return precautions were discussed and patient was otherwise discharged home in stable condition. Critical Care Critical Care Time Critical Care Time: No
--- OUTSIDE RECORDS SUMMARY | 2025-01-06 22:05 | XMS_ITS | Patient Health Record ---
Author Organization [facility] Address [address] [facility] [address] [place], [place] [id number] Care Team Providers Care Configuration Management Administrator Name Role Phone Anny Mario APRN Primary Care Provider Aster Parrish Unavailable [phone] Allergies Allergen (clinical drug ingredient) Drug/Non Drug [...] disorder associated with type II diabetes mellitus (674937665) NIDDM w/neuropathy (250.60) Active confirmed Problem Onychomycosis (957338422) Onychomycosis (110.1) Active confirmed Problem Peripheral vascular disease (163380609) PVD (440.29) Active confirmed Problem Edema (16508693) Edema (782.3) Active confirmed Problem Cellulitis of right lower limb (5477430065257919 4) Cellulitis of foot without toes, right (L03.115) Active confirmed Problem Blister (090576) Blister (T14.8) Active confirm ed Problem Diabetic peripheral neuropathy associated with type 2 diabetes mellitus (6262991096757) Type 2 diabetes mellitus with diabetic neuropathy, without long-term current use of insulin (E11.40) Active confirmed Problem Ulcer of toe of right foot (disorder) (7607779349196622 1) Skin ulcer of toe of right foot, limited to breakdown of skin (L97.511) Active confirmed Problem Ulcer of right foot (disorder) (075670325) Skin ulcer of right foot, limited to breakdown of skin (L97.511) Active confirmed Plan Of Treatment No Information Insurance Providers Payer Name Payer Address Payer Phone Subscriber Number Group Number Insured Name Patient Relationship to Insured Coverage Start Date Coverage End Date [employer] Medicare [address] [place] [address] [id number] Johanny Molina Self - patient is the insured [employer] [address] [place], [place] [id number] Johanny Molina Self - patient is the insured Medical (General) History Medical History History ICD Code diabetes hypertension shortness of breath lung disease asthma gastritis Sinus headaches Surgical History Surgery Date(Month/Year) section hysterectomy bladder surgery melanoma excision kidney stones tubal ligation gall bladder D&C
--- OUTSIDE RECORDS SUMMARY | 2025-01-06 22:05 | XMS_ITS | Clinical Summary ---
Author Organization [facility] Address [address] [place] [address] Phone Care Team Providers Care Plug Grower Name Role Phone Unavailable Primary Care Provider [...] MEDICARE [place] PART A [place] B MED[place] B
[2025-01-06 22:06] LABS: Bilirubin,Urine Negative (Negative); Color,Urine YELLOW (Yellow); Glucose,Urine (UA) Negative (Negative); Ketones,Urine Negative (Negative); Leukocyte Esterase,Urine 2+ (Negative); PH,Urine 8.5 (5.0-8.5); Protein,Urine 1+ (Negative); Specific Gravity, Urine 1.015 (1.005-1.030); Urobilinogen,Urine 1.0 EU/dl (0.2)
[2025-01-06 22:11] VITALS: BP 105/67; PULSE 82; O2SAT 94
--- NOTE | 2025-01-06 22:19 | CT_ITS ---
PROCEDURE INFORMATION: Exam: CT Abdomen And Pelvis With Contrast Exam date and time: 01/06/2025 11:19 PM Age: 64 years old Clinical indication: Abdominal pain; Additional info: Suprapubic abdominal pain TECHNIQUE: Imaging protocol: Computed tomography of the abdomen and pelvis with contrast. Radiation optimization: All CT scans at this facility use at least one of these dose optimization techniques: automated exposure control; mA and/or kV adjustment per patient size (includes targeted exams where dose is matched to clinical indication); or iterative reconstruction. Contrast material: ISOVUE; Contrast volume: 75 ml; Contrast route: IV; COMPARISON: CT ABDOMEN PELVIS W CON 04/27/2022 10:25 PM FINDINGS: Tubes, catheters and devices: Nerve stimulator device is in place. Multiple surgical clips in the pelvis. Lungs: Spiculated nodule in the lingula, partially evaluated measuring 8.2 x 9.4 mm. Basilar scarring/atelectasis. Heart: Base of heart is unremarkable as visualized. Liver: Normal. No mass. Gallbladder and biliary ducts: Cholecystectomy changes. Pancreas: Normal. No ductal dilation. Spleen: Normal. No splenomegaly. Adrenal glands: Normal. No mass. Kidneys and ureters: Nonobstructive right nephrolithiasis. Stomach and bowel: Severe colonic stool burden, proximal stool burden appears to be liquid in nature. Appendix: No evidence of appendicitis. Intraperitoneal space: Unremarkable. No free air. No significant fluid collection. Vasculature: Thrombosed subcentimeter right renal artery aneurysm. Lymph nodes: Prominent paraesophageal lymph nodes which appear stable from 04/27/2022. Urinary bladder: Thickened and enhancing urinary bladder wall. Reproductive: Hysterectomy. Presumed oophorectomy. Bones/joints: Degenerative change of the visualized osseous structures. Transitional lumbosacral anatomy is seen. Soft tissues: Unremarkable. IMPRESSION: 1. Findings suggest cystitis. Correlate clinically. 2. Superimposed impending diarrheal illness suspected with severe colonic stool burden. 3. Lingular spiculated nodule, grossly unchanged in size from prior comparison. Consider pulmonary assessment versus follow-up in 3 months..
[2025-01-06] MEDS: ONDANSETRON 4MG/2ML VIAL 4 MG IV (22:24)
[2025-01-06 22:30] VITALS: BP 115/65
[2025-01-06 22:34] LABS: Albumin Level 4.0 g/dl (3.5-5.0); Chloride 98 mmol/L (98-107); Sodium 137 mmol/L (136-145)
[2025-01-06 22:35] LABS: Potassium 3.6 mmoL/L (3.5-5.1)
[2025-01-06 22:37] LABS: Alanine Aminotransferase 21 U/L (12-78); Alkaline Phosphatase 39 U/L (38-126); Anion Gap 11.6 mEq/L (5-15); Aspartate Amino Transferase 30 U/L (14-36); Bilirubin,Total 0.3 mg/dl (0.2-1.3); Blood Urea Nitrogen 27 mg/dl (7-17); Carbon Dioxide 31 mmol/L (22.0-30.0); Creatinine Clearance Estimated 96 mL/min (50-200); Creatinine,Serum 1.00 mg/dl (0.52-1.04); Estimated Glomerular Filt Rate 56 ml/min (>60); GFR (African American) 67 ML/MIN (>60)
[2025-01-06 22:38] LABS: Albumin/Globulin Ratio 1.6 (1.1-1.8); Calcium 9.3 mg/dl (8.4-10.2); Globulin 2.5 g/dL (1.3-3.2); Glucose 95 mg/dl (74-100); Lipase 157 U/L (23-300); Total Protein,Serum 6.5 g/dl (6.3-8.2)
[2025-01-06 23:00] VITALS: BP 99/62
[2025-01-06 23:06] LABS: Squamous Epithelial Cell,Urine Occasional #/hpf (0-5)
[2025-01-06 23:07] LABS: Hematocrit 35.5 % (37.0-47.0); Hemoglobin 11.6 g/dL (12.2-16.2); Immature Granulocytes % 1.2 %; Mean Corpuscular HGB Conc 32.7 g/dL (31.8-35.4); Mean Corpuscular Hemoglobin 31.3 pg (27.0-31.2); Mean Corpuscular Volume 95.7 fl (81-99); Nucleated Red Blood Cells % 0 %; Platelet Count 271 K/mm3 (142-424); Red Blood Count 3.71 M/mm3 (4.20-5.40); Red Cell Distribution Width-SD 45.3 fL; White Blood Count 6.7 K/mm3 (4.8-10.8)
--- NOTE | 2025-01-06 23:16 | PC.NURSE ---
patient in CT
[2025-01-06] MEDS: IOPAMIDOL-370 (76%);100ML BOTTLE 75 ML IV (23:24)
[2025-01-06] MEDS: SODIUM CHLORIDE 0.9% 10ML SYR (RAD ONLY) 10 ML IV (23:24)
[2025-01-07 00:01] LABS: Amorphous Sediment,Urine 4+ /lpf
--- NOTE | 2025-01-07 00:07 | PC.NURSE ---
Report called to [facility]
--- NOTE | 2025-01-07 00:25 | HMH.EDGENADL ---
Discharge Plan Disposition Patient Disposition: Home, Self-Care Condition: Good Prescriptions Prescriptions: New cefadroxil 500 mg capsule 500 mg PO BID 7 Days Qty: 14 0RF No Action fenofibrate nanocrystallized 145 mg tablet 145 mg PO DAILY cranberry fruit 450 mg tablet 900 mg PO DAILY Rx Instructions: administer with a meal metformin 500 mg tablet 500 mg PO BID lisinopril 5 mg tablet 5 mg PO DAILY cetirizine [Zyrtec] 10 mg tablet 10 mg PO DAILY Abilify Maintena 300 mg suspension,extended rel syring 300 mg IM MONTHLY divalproex 500 mg tablet,delayed release (DR/EC) 500 mg PO BID potassium chloride 20 mEq tablet extended release 20 meq PO DAILY phenazopyridine [Azo Urinary Pain Relief] 95 mg tablet 190 mg PO TID PRN (Reason: UTI symptoms) guaifenesin [Robafen] 100 mg/5 mL liquid 200 mg PO Q4H PRN magnesium hydroxide [Milk of Magnesia] 400 mg/5 mL suspension 2,400 mg PO DAILY PRN fluticasone propionate [Flonase Allergy Relief] 50 mcg/actuation spray,suspension 2 spray intranasal DAILY Rx Instructions: administer into each nostril sucralfate 1 gram tablet 1 g PO BID venlafaxine 150 mg capsule,extended release 24hr 150 mg PO DAILY terazosin 10 mg capsule 10 mg PO HS cholecalciferol (vitamin D3) 125 mcg (5,000 unit) capsule 125 mcg PO DAILY icosapent ethyl [Vascepa] 1 gram capsule 2 g PO BID sennosides [senna] 8.6 mg tablet 17.2 mg PO BID Artificial Tears([id number]-uxmu) 1-0.2-0.2 % drops 1 drp ophthalmic (eye) Q6HP PRN (Reason: dry eye(s)) Rx Instructions: each eye loperamide 2 mg capsule 2 mg PO Q6H PRN (Reason: Diarrhea) meclizine 12.5 mg tablet 12.5 mg PO BIDP azelastine 137 mcg (0.1 %) aerosol,spray 1 spray intranasal BID Rx Instructions: administer into each nostril estradiol [Estrace] 0.01 % (0.1 mg/gram) cream 1 g vaginal .Twice Weekly montelukast [Singulair] 10 mg tablet 10 mg PO HS fluticasone furoate-vilanterol [Breo Ellipta] 100-25 mcg/dose blister with device 1 inh inhalation DAILY Qty: 60 2RF magnesium oxide 400 mg magnesium tablet 400 mg PO DAILY Qty: 14 0RF gabapentin 300 mg capsule 300 mg PO TID Qty: 90 5RF polyethylene glycol 3350 17 GM powder in packet 17 gm PO DAILY albuterol sulfate 8.5 GM HFA aerosol inhaler 2 inh IH Q6HP PRN (Reason: shortness of breath or wheezing) bisacodyl 10 MG suppository 10 mg RC DAILYP PRN (Reason: Constipation) lactulose 20 GM/30 ML solution 30 ml PO DAILYP PRN (Reason: Constipation) Linzess 290 mcg Capsule 290 mcg PO HS bethanechol chloride 25 MG tablet 25 mg PO QID 30 Days Qty: 0 0RF furosemide 40 mg tablet 40 mg PO DAILY aspirin 81 mg Tablet,Delayed Release (Dr/Ec) 81 mg PO DAILY atorvastatin [Lipitor] 20 mg tablet 20 mg PO HS metoprolol succinate [Toprol XL] 25 mg tablet extended release 24 hr 12.5 mg PO HS Rx Instructions: take 0.5 tablet daily ondansetron HCl 4 MG tablet 4 mg PO TIDP PRN (Reason: Nausea) acetaminophen 500 MG tablet 500 mg PO Q6HP PRN (Reason: Pain) ferrous sulfate 325 MG tablet 325 mg PO TID omeprazole 20 MG tablet,delayed release (DR/EC) 20 mg PO DAILY fludrocortisone 0.1 MG tablet 0.1 mg PO DAILY Activity Restrictions/Add. Instructions Additional Instructions/Restrictions: You do have significant stool burden, you should continue taking stool softeners. Clinical Impressions Clinical Impression: Recurrent UTI Instructions Patient Instructions: DI for Acute Abdominal Pain Print Language Print Language: Telugu Discharge ED Provider: Elida Summers Adult HPI General Chief complaint: Abdominal Pain Stated complaint: Pain Time Seen by Provider: 01/06/25 21:58 Mode of Arrival: Ambulatory Source of Information: Patient Description of Symptoms (Recalled from ER Triage Doc. by RN): pt presents to the Ed d/t pelvic pain, burning with urination. and abdominal pain. pt coming from [facility], is alert and oriented. History of Present Illness HPI narrative: Patient is a 64-year-old female who presents to the emergency department with suprapubic abdominal pain as well as burning with urination. Patient denies any upper abdominal pain. Patient denies any lower quadrant abdominal pain. Patient reports nausea but no vomiting. Patient has not had any fevers. Patient reports frequent urinary tract infections. Patient denies any diarrhea. Patient denies any chest pain or shortness of breath. Related Data Home Medications ?Medication ?Instructions ?Recorded ?Confirmed acetaminophen 500 mg tablet 500 mg PO Q6HP PRN Pain 04/17/20 01/07/25 ferrous sulfate 325 mg (65 mg 325 mg PO TID Supplement 04/17/20 01/07/25 iron) tablet fludrocortisone 0.1 mg tablet 0.1 mg PO DAILY Adrenal disease 04/17/20 01/07/25 omeprazole 20 mg tablet,delayed 20 mg PO DAILY acid reflux 04/17/20 01/07/25 release ondansetron HCl 4 mg tablet 4 mg PO TIDP PRN Nausea 04/17/20 01/07/25 polyethylene glycol 3350 17 gram 17 gm PO DAILY CONSTIPATION 10/12/20 01/07/25 oral powder packet albuterol sulfate 90 mcg/actuation 2 inh inhalation Q6HP PRN 03/13/21 01/07/25 aerosol inhaler shortness of breath or wheezing bisacodyl 10 mg rectal suppository 10 mg OH DAILYP PRN Constipation 03/14/21 01/07/25 lactulose 20 gram/30 mL oral 30 ml PO DAILYP PRN Constipation 03/14/21 01/07/25 solution linaclotide 290 mcg capsule 290 mcg PO HS Irritable bowel 04/27/22 01/07/25 (Linzess) syndrome aripiprazole 300 mg suspension, 300 mg IM MONTHLY 01/11/23 01/07/25 extended rel. intramuscular syringe (Brandon Rosales) cetirizine 10 mg tablet (Zyrtec) 10 mg PO DAILY 01/11/23 01/07/25 azelastine 137 mcg (0.1 %) nasal 1 spray intranasal BID 04/18/23 01/07/25 spray estradiol 0.01% (0.1 mg/gram) 1 g vaginal .Twice Weekly 04/18/23 01/07/25 vaginal cream (Estrace) loperamide 2 mg capsule 2 mg PO Q6H PRN Diarrhea 04/18/23 01/07/25 meclizine 12.5 mg tablet 12.5 mg PO BIDP Dizziness 04/18/23 01/07/25 montelukast 10 mg tablet 10 mg PO HS 04/18/23 01/07/25 (Singulair) peg [id number] 1 1 drp ophthalmic (eye) Q6HP PRN 04/18/23 01/07/25 %-0.2 %-0.2 % eye drops dry eye(s) (Artificial Tears ([id number])) divalproex 500 mg tablet,delayed 500 mg PO BID 07/13/23 01/07/25 release potassium chloride 20 mEq 20 meq PO DAILY 08/08/23 01/07/25 tablet,extended release aspirin 81 mg tablet,delayed 81 mg PO DAILY 02/16/24 01/07/25 release atorvastatin 20 mg tablet (Lipitor) 20 mg PO HS 02/16/24 01/07/25 furosemide 40 mg tablet 40 mg PO DAILY 02/16/24 01/07/25 metoprolol succinate 25 mg 12.5 mg PO HS 02/16/24 01/07/25 tablet,extended release 24 hr (Toprol XL) fluticasone propionate 50 2 spray intranasal DAILY 03/26/24 01/07/25 mcg/actuation nasal spray,suspension (Flonase Allergy Relief) magnesium hydroxide 400 mg/5 mL 2,400 mg PO DAILY PRN 03/26/24 01/07/25 oral suspension (Milk of Magnesia) phenazopyridine 95 mg tablet (Azo 190 mg PO TID PRN UTI symptoms 03/26/24 01/07/25 Urinary Pain Relief) guaifenesin 100 mg/5 mL oral 200 mg PO Q4H PRN 05/30/24 01/07/25 liquid (Robafen) cholecalciferol (vitamin D3) 125 125 mcg PO DAILY 06/04/24 01/07/25 mcg (5,000 unit) capsule icosapent ethyl 1 gram capsule 2 g PO BID 06/04/24 01/07/25 (Vascepa) sucralfate 1 gram tablet 1 g PO BID 06/04/24 01/07/25 terazosin 10 mg capsule 10 mg PO HS 06/04/24 01/07/25 venlafaxine 150 mg 150 mg PO DAILY 06/04/24 01/07/25 capsule,extended release 24 hr sennosides 8.6 mg tablet (senna) 17.2 mg PO BID 08/13/24 01/07/25 cranberry fruit 450 mg tablet 900 mg PO DAILY 09/19/24 01/07/25 fenofibrate nanocrystallized 145 145 mg PO DAILY 09/19/24 01/07/25 mg tablet lisinopril 5 mg tablet 5 mg PO DAILY 12/19/24 01/07/25 metformin 500 mg tablet 500 mg PO BID 12/19/24 01/07/25 Previous Rx's ?Medication ?Instructions ?Recorded bethanechol chloride 25 mg tablet 25 mg PO QID bladder control 30 04/29/22 days #0 tabs fluticasone furoate 100 1 inh inhalation DAILY #60 ea 07/26/23 mcg-vilanterol 25 mcg/dose inhalation powder (Breo Ellipta) magnesium oxide 400 mg PO DAILY #14 tabs 09/27/23 gabapentin 300 mg capsule 300 mg PO TID #90 caps 09/26/24 cefadroxil 500 mg capsule 500 mg PO BID 7 days #14 caps 01/06/25 Allergies Allergy/AdvReac Type Severity Reaction Status Date / Time aspirin Allergy Unknown Unknown Verified 01/07/25 09:13 allergy reaction azithromycin Allergy Unknown Unknown Verified 01/07/25 09:13 allergy reaction bupropion (From Wellbutrin Allergy Unknown Unknown Verified 01/07/25 09:13 SR) allergy reaction levofloxacin (From Levaquin) Allergy Unknown Unknown Verified 01/07/25 09:13 allergy reaction erythromycin base AdvReac Unknown Unknown Verified 01/07/25 09:13 allergy reaction tramadol AdvReac Unknown Unknown Verified 01/07/25 09:13 allergy reaction influenza vaccine AdvReac Unknown Unknown Uncoded 01/06/25 23:54 allergy reaction PFSH PFSH Disclaimer: The information contained in this section may have been updated after the patient was seen, as this information can be updated by other users. Medical History Complex sleep apnea syndrome Improved from previous with a compliance equal or greater than 4 hours of 80%, AHI 4.7 Complex sleep apnea syndrome, nocturnal hypoxemia, obesity/hypoventilation. At risk for cardiovascular events. She cannot place/use her iVAPS unless she gets help from nursing staff. Schizoaffective disorder, unspecified HTN (hypertension) Recurrent UTI Colon cancer screening Cardiac dysrhythmia Noted during the night of most recent BiPAP titration (April 2023) Pure hypercholesterolemia, unspecified Seizure disorder COPD (chronic obstructive pulmonary disease) Bilateral lower extremity edema Diabetic foot Lymphedema Onychomycosis Obesity (BMI 30-39.9) LANCE (obstructive sleep apnea) Sepsis History of MRSA infection of lungs Diabetes type 2, controlled Anxiety Acute hypoxemic respiratory failure Hospital-acquired pneumonia Chronic hypercapnic respiratory failure Dysphagia Elevated left ventricular end-diastolic pressure (LVEDP) CAD in [place] artery Hyperlipidemia Vitamin D deficiency, unspecified Obstructive sleep apnea (adult) (pediatric) Acute pancreatitis without necrosis or infection, unspecified Unspecified fracture of left patella, initial encounter for closed fracture Interstitial cystitis Hx of bipolar disorder Migraine GERD (gastroesophageal reflux disease) Depression Mild persistent asthma Personal history of sarcoidosis Multiple pulmonary nodules CHF (congestive heart failure) Anemia Surgical History Status post foot surgery Status post surgical removal of malignant neoplasm of skin History of sinus surgery History of hysterectomy History of dilation and curettage History of section History of colonoscopy Hx of cholecystectomy History of tonsillectomy Family History Other CHF (congestive heart failure) Social History Smoking Status: Never smoker alcohol intake: never substance use type: denies use current occupational status: unemployed Travel in the last 8 weeks?: None household members: caregiver housing: assisted living facility caffeine: No Other Medical History Have you received the Flu Vaccine for this season: No Have you received the Pneumonia Vaccine: Yes (2012) ROS Obtained: Yes All systems reviewed & no additional complaints except as documented and Yes Systems reviewed as appropriate & no additional complaints except as documented Physical Exam General General appearance: alert and in no apparent distress Head Head exam: atraumatic, normocephalic and normal inspection Eye Eye exam: Present normal appearance, PERRL and EOMI; Absent scleral icterus ENT ENT exam: Present normal exam and normal external ear exam Neck Neck exam: Present normal inspection and full ROM Chest Chest inspection: Present normal inspection and symmetric chest wall rise Respiratory Respiratory exam: Present normal lung sounds bilaterally; Absent respiratory distress or wheezes Cardiovascular Cardiovascular exam: Present regular rate, normal rhythm and normal heart sounds Abdominal Exam Abdominal exam: Present soft, distention and tenderness (suprapubic abdominal tenderness); Absent guarding or rebound Extremities Exam Extremities exam: Present normal inspection and full ROM Back Exam Back exam: Present normal inspection and full ROM Neurological Exam Neurological exam: Present alert and oriented X3 Psychiatric Psychiatric exam: Present normal affect and normal mood Skin Skin exam: Present warm and dry Medical Decision Making Medical Records Medical records reviewed: Yes I reviewed the patient's medical records. Screening: Per USPSTF and CDC recommendations, given the prevalence of disease in our region, it is our hospital?s policy to screen for HIV and viral Hepatitis for all patients aged 18 and over and those with ongoing risk factors. [place] Inquiry Pt receiving controlled substance: No Vital Signs: 01/06/25 21:46 01/06/25 21:47 01/06/25 22:11 Temperature 98.3 F Temperature Source Oral Pulse Rate 87 82 Pulse Rate [Right Radial] 75 Respiratory Rate 16 Blood Pressure 148/111 H 105/67 L Blood Pressure [Right Arm] 148/111 H Blood Pressure Mean Blood Pressure Mean [Right Arm] 123 Blood Pressure Position Blood Pressure Position [Right Arm] Supine 02 Sat by Pulse Oximetry 85 L 94 L 94 L Oxygen Delivery Method Room Air 01/06/25 22:30 01/06/25 23:00 01/07/25 00:45 Temperature 98.0 F Temperature Source Oral Pulse Rate 74 Pulse Rate [Right Radial] Respiratory Rate 18 Blood Pressure 115/65 99/62 L 106/63 L Blood Pressure [Right Arm] Blood Pressure Mean 75 72 Blood Pressure Mean [Right Arm] Blood Pressure Position Supine Blood Pressure Position [Right Arm] 02 Sat by Pulse Oximetry Oxygen Delivery Method Room Air Lab Data Lab results reviewed: Yes I reviewed the patient's lab results. Lab Results 01/06/25 21:49: Urine Color Yellow, Urine Appearance Cloudy, Urine pH 8.5, Ur Specific [place] 1.015, Urine Protein 1+ A, Urine Glucose (UA) Negative, Urine Ketones Negative, Urine Blood 2+ A, Urine Nitrate Positive A, Urine Bilirubin Negative, Urine Urobilinogen 1.0, Ur Leukocyte Esterase 2+ A, Ur Squamous Epith Cells Occasional, Amorphous Sediment 4+ 01/06/25 22:10: WBC 6.7, RBC 3.71 L, Hgb 11.6 L, Hct 35.5 L, MCV 95.7, MCH 31.3 H, MCHC 32.7, RDW 12.9, Plt Count 271, MPV 9.3, Neut % (Auto) 48.8, Lymph % (Auto) 37.4, Centre % (Auto) 9.6 H, Eos % (Auto) 2.1, Baso % (Auto) 0.9, Neut # (Auto) 3.3, Lymph # (Auto) 2.5, Centre # (Auto) 0.6, Eos # (Auto) 0.1, Baso # (Auto) 0.1, Sodium 137, Potassium 3.6, Chloride 98, Carbon Dioxide 31 H, Anion Gap 11.6, BUN 27 H, Creatinine 1.00, Estimated Creat Clear 96, Estimated GFR 56 L, Est GFR ( Amer) 67, Glucose 95, Calcium 9.3, Total Bilirubin 0.3, AST 30, ALT 21, Alkaline Phosphatase 39, Total Protein 6.5, Albumin 4.0, Globulin 2.5, Albumin/Globulin Ratio 1.6, Lipase 157 01/06/25 22:10 01/06/25 22:10 Orders (Tests/Meds): ED MEDICATIONS Discontinued Medications Generic Name Dose Route Start Last Admin Trade Name Freq PRN Reason Stop Dose Admin Ceftriaxone Sodium 2 gm/ 100 mls @ 200 mls/hr 01/06/25 23:45 01/07/25 00:44 Sodium Chloride IV 01/16/25 23:44 Infused Q24H OLGA Infusion Iopamidol 75 ml 01/06/25 23:23 01/06/25 23:24 Iopamidol-370 (76%);100ml Bottle IV 01/06/25 23:24 75 ml ONCE ONE Administration Ondansetron HCl 4 mg 01/06/25 22:19 01/06/25 22:24 Ondansetron 4mg/2ml Vial IV 01/06/25 22:20 4 mg ONCE ONE Administration Sodium Chloride 10 ml 01/06/25 23:23 01/06/25 23:24 Sodium Chloride 0.9% 10ml Syr (Rad Only) IV 02/05/25 23:22 10 ml NEEDED PRN Administration Maintain IV Site ORDERS Category Date Time Status CT abdomen pelvis w con Stat Cat Scan 01/06/25 22:19 Completed CBC w/Auto Diff [Complete Blood Count Auto Diff] Stat Lab 01/06/25 22:10 Completed CMP [Comprehensive Metabolic Panel] Stat Lab 01/06/25 22:10 Completed Lipase Stat Lab 01/06/25 22:10 Completed Urinalysis and Microscopic Stat Lab 01/06/25 21:49 Completed Urine Culture Stat Micro 01/06/25 21:49 Completed Medical Decision Narrative: Patient is a otherwise healthy 64-year-old female who presents to the emergency department with suprapubic abdominal pain as well as burning with urination. On arrival, patient was hemodynamically stable with unremarkable vital signs. Differential included but not limited to: Urinary tract infection, pyelonephritis, nephrolithiasis, sepsis, dehydration, electrolyte abnormalities, pancreatitis, other intra-abdominal process. Labs reviewed and interpreted by myself: CBC showed no leukocytosis, CMP was unremarkable. Lipase was normal. UA concerning for infection including nitrite positive. CT scan of the abdomen was reviewed and interpreted by myself and showed no acute intra-abdominal process. Patient was given a dose of Rocephin in the emergency department given nitrite positive urinary tract infection. Patient was sent with a prescription for cefadroxil and patient was otherwise discharged in stable condition given unremarkable labs as well as normal vital signs. Return precautions were discussed. Critical Care Critical Care Time Critical Care Time: No
[2025-01-07 00:45] VITALS: BP 106/63; PULSE 74; RESP 18; TEMP 36.7; O2SAT 98
== END 2025-01-07 00:46 | disposition home or self-care (01) ==
PROVIDERS: Emergency Provider Student in an Organized Health Care Education/Training Program
DX: N39.0 Urinary tract infection, site not specified (principal)
CPT/HCPCS: 74177; 80053; 81001; 83690; 85025; 87086; 87088; 87186; 96365; 96375; 99285; J0696; J2405; Q9967

== ENCOUNTER 2025-01-16 10:05 | Outpatient (CLI) | payer MEDICARE, MEDICAID, SELFPAY ==
--- OUTSIDE RECORDS SUMMARY | 2025-01-16 10:10 | XMS_ITS | Clinical Summary ---
Author Organization [facility] Address [address] [place] [address] Phone Care Team Providers Care Translator/Interpreter Name Role Phone Unavailable Primary Care Provider [...] (2 of 2 - PCV) 03/12/2014 03/12/2013 Bone Density Screening 2024 COVID-19 Vaccine (1 - 2023-2 5 season) 2025 Influenza Vaccine (#1) 2025 3, 03/07/2007 DTaP/TDaP/Td [...] MEDICARE [place] PART A [place] B [place]ICA[place] [address] [address] MEDICARE OR PART A AND B
--- OUTSIDE RECORDS SUMMARY | 2025-01-16 10:10 | XMS_ITS | Patient Health Record ---
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 Name Role Phone Anny Mario APRN Primary Care Provider Aster Parrish Unavailable [phone] Allergies Allergen (clinical drug ingredient) Drug/Non Drug [...] disorder associated with type II diabetes mellitus (434388885) NIDDM w/neuropathy (250.60) Active confirmed Problem Onychomycosis (672517698) Onychomycosis (110.1) Active confirmed Problem Peripheral vascular disease (890605186) PVD (440.29) Active confirmed Problem Edema (92219653) Edema (782.3) Active confirmed Problem Cellulitis of right lower limb (8367137569690580 4) Cellulitis of foot without toes, right (L03.115) Active confirmed Problem Blister (142009) Blister (T14.8) Active confirm ed Problem Diabetic peripheral neuropathy associated with type 2 diabetes mellitus (8906223821975) Type 2 diabetes mellitus with diabetic neuropathy, without long-term current use of insulin (E11.40) Active confirmed Problem Ulcer of toe of right foot (disorder) (4821197494840413 1) Skin ulcer of toe of right foot, limited to breakdown of skin (L97.511) Active confirmed Problem Ulcer of right foot (disorder) (637109499) Skin ulcer of right foot, limited to breakdown of skin (L97.511) Active confirmed Plan Of Treatment No Information Insurance Providers Payer Name Payer Address Payer Phone Subscriber Number Group Number Insured Name Patient Relationship to Insured Coverage Start Date Coverage End Date [employer] Medicare [address] [place] [address] [id number] Johanny Molina Self - patient is the insured [employer] Medicaid [address] [place], [place] [id number] [phone] [id number] Johanny Molina Self - patient is the insured Medical (General) History Medical History History ICD Code diabetes hypertension shortness of breath lung disease asthma gastritis Sinus headaches Surgical History Surgery Date(Month/Year) section hysterectomy bladder surgery melanoma excision kidney stones tubal ligation gall bladder D&C
== END 2025-01-16 23:59 | disposition home or self-care (01) ==
PROVIDERS: PCP Family Medicine; Visit Provider Internal Medicine Pulmonary Disease
DX: R94.2 Abnormal results of pulmonary function studies (principal); R06.02 Shortness of breath
CPT/HCPCS: 94060; 94726; 94729

== ENCOUNTER 2025-01-29 08:05 | Outpatient (CLI) | payer MEDICARE, MEDICAID, SELFPAY ==
[2025-01-29 08:13] LABS: Hematocrit 30.3 % (37.0-47.0); Hemoglobin 9.9 g/dL (12.2-16.2); Immature Granulocytes % 2.6 %; Mean Corpuscular HGB Conc 32.7 g/dL (31.8-35.4); Mean Corpuscular Hemoglobin 31.3 pg (27.0-31.2); Mean Corpuscular Volume 95.9 fl (81-99); Nucleated Red Blood Cells % 0 %; Platelet Count 240 K/mm3 (142-424); Red Blood Count 3.16 M/mm3 (4.20-5.40); Red Cell Distribution Width-SD 47.1 fL; White Blood Count 5.3 K/mm3 (4.8-10.8)
[2025-01-29 10:23] LABS: Albumin Level 3.4 g/dl (3.5-5.0); Chloride 98 mmol/L (98-107); Potassium 4.0 mmoL/L (3.5-5.1); Sodium 137 mmol/L (136-145)
[2025-01-29 10:25] LABS: Blood Urea Nitrogen 16 mg/dl (7-17); Creatinine,Serum 0.80 mg/dl (0.52-1.04); Estimated Glomerular Filt Rate 72 ml/min (>60); GFR (African American) 87 ML/MIN (>60)
[2025-01-29 10:26] LABS: Alanine Aminotransferase 20 U/L (12-78); Albumin/Globulin Ratio 1.7 (1.1-1.8); Alkaline Phosphatase 37 U/L (38-126); Anion Gap 11.0 mEq/L (5-15); Aspartate Amino Transferase 22 U/L (14-36); Bilirubin,Total 0.3 mg/dl (0.2-1.3); Calcium 9.5 mg/dl (8.4-10.2); Carbon Dioxide 32 mmol/L (22.0-30.0); Globulin 2.0 g/dL (1.3-3.2); Glucose 104 mg/dl (74-100); Total Protein,Serum 5.4 g/dl (6.3-8.2)
== END 2025-01-29 23:59 | disposition home or self-care (01) ==
PROVIDERS: PCP Nurse Practitioner Family; Visit Provider Nurse Practitioner Family
DX: Z01.812 Encounter for preprocedural laboratory examination (principal); Z79.899 Other long term (current) drug therapy
CPT/HCPCS: 36415; 80053; 85025

== ENCOUNTER 2025-02-14 08:09 | Outpatient (CLI) | payer MEDICARE, MEDICAID, SELFPAY ==
--- OUTSIDE RECORDS SUMMARY | 2025-02-14 08:13 | XMS_ITS | Patient Health Record ---
Author Organization [facility] Address [address] [facility] [address] [place], [place] [id number] Care Team Providers Care Program Or Project Administrator Name Role Phone Anny Mario APRN Primary Care Provider Aster Parrish Unavailable [phone] Allergies Allergen (clinical drug ingredient) Drug/Non Drug [...] disorder associated with type II diabetes mellitus (652093503) NIDDM w/neuropathy (250.60) Active confirmed Problem Onychomycosis (149504362) Onychomycosis (110.1) Active confirmed Problem Peripheral vascular disease (397421031) PVD (440.29) Active confirmed Problem Edema (58025115) Edema (782.3) Active confirmed Problem Cellulitis of right lower limb (7428425629575111 4) Cellulitis of foot without toes, right (L03.115) Active confirmed Problem Blister (444704) Blister (T14.8) Active confirm ed Problem Diabetic peripheral neuropathy associated with type 2 diabetes mellitus (0373453170867) Type 2 diabetes mellitus with diabetic neuropathy, without long-term current use of insulin (E11.40) Active confirmed Problem Ulcer of toe of right foot (disorder) (8782416568750927 1) Skin ulcer of toe of right foot, limited to breakdown of skin (L97.511) Active confirmed Problem Ulcer of right foot (disorder) (087662932) Skin ulcer of right foot, limited to breakdown of skin (L97.511) Active confirmed Plan Of Treatment No Information Insurance Providers Payer Name Payer Address Payer Phone Subscriber Number Group Number Insured Name Patient Relationship to Insured Coverage Start Date Coverage End Date [employer] Medicare [address] [place] [address] [id number] Johanny Molina Self - patient is the insured [employer] Medicaid [address] [place], [place] [id number] Johanny Molina Self - patient is the insured Medical (General) History Medical History History ICD Code diabetes hypertension shortness of breath lung disease asthma gastritis Sinus headaches Surgical History Surgery Date(Month/Year) section hysterectomy bladder surgery melanoma excision kidney stones tubal ligation gall bladder D&C
--- OUTSIDE RECORDS SUMMARY | 2025-02-14 08:13 | XMS_ITS | Continuity of Care Document ---
Author Organization [facility] Address [address] [place] [address] Assessment Encounter Date Assessment Date Assessment LastModified by Organization Details LastModified Time 01/15/2025 01/15/2025 Ms. Molina has a history of lumbar degenerative disc disease, congenital elephantiasis, and right knee osteoarthritis presented in our clinic for chronic pain management. The patient is S/P intrathecal pain pump implant. The patient has a history of recurrent UTI. - Pain pump refill [email or web address] Not available 01/16/2025 17:44:50 Plan of Treatment Reminders Order Date Submit Date Provider Last Modified By Organization Details Last Modified Time Details Appointments OV EST 15 2024 03:00P M Nicholas Guzman MD Not available Not available Not available Lab None recorded . Referral None recorded . Procedures intrathe georgina pump refill (PROC) - REFILL WITH MORPHINE 3 MG/ML 2024 025 carlyn Guzman MD, [address] [facility], [place], [address], 01/15/2025 13:13:11 Surgeries None recorded . Imaging None recorded . Medication Orders None recorded . Patient TargetsNo targets recorded. Patient Instructions Encounter Date Encounter Id Patient Instructions Last Modified By Organization Details Last Modified Time 01/15/2025 [id number] I have discussed in great detail our [...] IV medications that require review by law. [email or web address] Not available 01/10/2025 13:25:31 Reason for Referral None Reported. Results Created Date Observation Date Name Description Value Unit Range Abnormal Flag Note LastModifiedBy Organization Detail LastModifiedTime 02/13/2001/30/2025 imagi ng/di agnos tic resul t No observ ation record ed. [facility] [facility] ([employer]) [address], [place], [address], 02/12/2025 02:15:21 Result Notes None recorded. Problems Name Problem SNOMED Code Status Onset Date Resolution Date Notes Provider Name and Address Organization Details Recorded Time Symbolic dysfunction 921805375 Active 2022 Angi rolon, [place] - [facility] - [place] & [place] 3 11:21:45 Type 2 diabetes mellitus 93082186 Active 2022 Angi Lantigua null, [place] - [facility] [place] & [place] 3 11:21:58 Vitamin D deficiency 75951466 Active 2022 Angi Lantigua [place], [place] [facility] [place] & [place] 3 11:22:20 Hypercholes terolemia 95279955 Active 2022 Angi Lantigua [place], [place] [facility] [place] & [place] 3 11:22:36 Hypokalemia 95069766 Active 2022 Angi Lantigua null, [place] [facility] [place] & [place] 3 11:22:42 Major depressive disorder 200839835 Active 2022 Angi Lantigua null, [place] [facility] [place] & [place] 3 11:22:49 Behavioral and emotional disorder with onset in childhood 705784403 Active 2022 Angi Lantigua [place], [place] [facility] [place] & [place] 3 11:23:14 Neuropathy 285674490 Active 2022 Angi Lantigua null, [place] [facility] [place] & [place] 3 11:23:29 Lymphedema 909386314 Active 2022 Angi Lantigua null, [place] [facility] [place] & [place] 3 11:23:40 Gastroesoph ageal reflux disease 747068686 Active 2022 Angi Lantigua [place], [place] [facility] [place] & [place] 3 11:23:49 Constipatio n 48438491 Active 2022 Angi Lantigua null, [place] [facility] [place] & [place] 3 11:23:54 Dysphagia 12299067 Active 2022 Angi Lantig[place], [place] [facility] [place] 3 11:24:23 Seizure 53801532 Active 2022 Angi Lantigua [place], [place] [facility] [place] & [place] 3 11:24:48 Morbid obesity 552480287 Active 2022 Angi aLntigua null, [place] [facility] [place] 3 11:24:59 Injury of head 86284180 Active 2022 Angi Lantigua null, [place] [facility] [place] & [place] 3 11:25:20 Pain of bilateral knee joints 0992730198719 04 Active 2022 Meggan Mcgrawkins null, [place] - [facility] - [place] & [place] 3 12:24:31 Myofascial pain 579102639 Active 2022 Meggan Swain [place], [place] [facility] [place] & [place] 3 12:24:32 Osteoarthri tis of left knee joint 0698274143422 09 Active 2022 Meggan Swain [place], [place] [facility] [place] & [place] 3 12:24:41 Osteoarthri tis of right knee joint 6819366244901 00 Active 2022 Meggan Mcgrawkins [place], [place] [facility] [place] & [place] 3 12:53:37 Paresthesia of upper limb 94075214 Active 2022 Meggan Swain [place] [facility] [place] & [place] 3 15:51:15 Pain in cervical spine 911910095 Active 2022 Meggan rolon, [place] [facility] [place] & [place] 3 15:51:16 Degeneratio n of lumbar interverteb ral disc 78056189 Active 2023 Meggan rolon, [place] [facility] [place] & [place] 4 18:18:48 Chronic pain syndrome 417473213 Active 2023 Meggan rolon, [place] [facility] [place] & [place] 4 18:18:53 Problem Notes None recorded. Procedures Surgical History Date Name Laterality Status Provider Name and Address Organization Details Recorded Time 01/16/20 25 Intrathecal Drug (ITD) Pump Refill completed Gloria [place] [facility] [place] 01/15/2025 13:09:39 01/16/20 25 PUMP CHANGES completed Gloria HOW[place] - [facility] - [place] & [place] 01/15/2025 13:09:00 09/17/19 25 Intrathecal Drug (ITD) Pump Refill completed Gloria HOWARD - [facility] [place] 09/16/2024 14:08:48 09/17/19 25 PUMP CHANGES completed Gloria HOWARD - [facility] - [place] & [place] 09/16/2024 14:08:37 09/10/19 25 Intrathecal Drug (ITD) Pump Refill cancelled Selene HOWARD - [facility] - [place] & [place] 09/05/2024 11:22:07 09/10/19 25 PUMP CHANGES cancelled Selene HOWARD - [facility] - [place] & [place] 09/05/2024 11:22:07 05/06/20 24 Intrathecal Drug (ITD) Pump Refill completed Gloria HOWARD - [facility] - [place] & [place] 05/06/2024 16:51:22 05/06/20 24 PUMP CHANGES completed Meggan HOWARD - [facility] - [place] & [place] 05/06/2024 18:18:02 01/25/20 23 PUMP CHANGES completed Vivi HOWARD - [facility] - [place] & [place] 01/24/2023 13:50:17 11/04/19 [facility] [place] [facility] [place] 11/03/2022 13:20:28 10/04/19 23 PUMP CHANGES completed ALETHEA GRULLON [address] [facility], [place], [address], ANITA - [facility] - [place] & [place] 10/04/2022 11:54:22 09/21/19 23 PUMP CHANGES completed Vivi [place] - [facility] - [place] & [place] 09/21/2022 08:03:23 07/12/19 23 PUMP CHANGES completed Meggan HOWARD - [facility] - [place] & [place] 07/12/2022 12:59:56 Imaging Results None recorded. Procedure Notes None recorded. Medical Equipment None Reported. Allergies Allergen ID Allergen Name Allergen Category Reaction Reaction Severity Criticality Documentation Date Start Date Code Code System Note Provider Name and Address Organization Details Recorded Time 57553 tramadol medicatio n Not available Not available Not available 05/19/2022 89772 RxNorm Angi rolon, [place] - [facility] & [place] 3 11:03:13 58272 Wellbutri n medicatio n Not available Not available Not available 05/19/2022 34105 RxNorm Angi rolon, [place] - [facility] & [place] 3 11:03:20 67117 influenza virus vaccine, specific Not available Not available Not available Not available 05/19/2022 Angi rolon, AN[place] - [facility] & [place] 3 11:03:38 50273 aspirin medicatio n Not available Not available Not available 05/19/2022 1191 RxNorm ANITA Gonzalez - [facility] & [place] 3 11:03:45 41009 azithromy ammon medicatio n Not available Not available Not available 05/19/2022 05894 RxNorm Angi rolon, AN[place] - [facility] & [place] 3 11:03:51 77770 Cephalosp brant (substanc e) medicatio n Not available Not available Not available 05/19/2022 94679 7003 SNOMED Angi Lantigua null, [place] - [facility] - [place] & [place] 3 11:03:58 Medications Name Sig Start Date [...] azelastine 137 mcg (0.1 %) nasal spray [place] 2 sprays twice a day by intranasal [...] blood by Pulse oximetry Heart rate Systolic And Diastolic Provider Name and Address Organization Details Last Updated DateTime 5 97.8 [degF] 97 % 97 % 73 /min 145/60 mm[Hg] [facility] 5 09:39:57 Social History None recorded. Functional Status None recorded. Mental Status None recorded. Family History Nothing Reported. Medical History No medical history recorded. Gynecological HistoryNo gynecological history recorded. Obstetrics History GPAL:G 0 P 0 0 0 0 Past Encounters Encounter ID Performer Location Encounter Start Date Encounter Closed Date Diagnosis/Indication Diagnosis SNOMED-CT Code Diagnosis ICD10 Code Diagnosis IMO Codes Diagnosis Note [id number] Nicholas Guzman MD [facility] [address] [place] [address] 01/15/2025 09:06:57 01/15/2025 10:00:32 Chronic pain syndrome 908706476 G89.4 - It appears that ITPP therapy is effective and the patient is happy with her current dosing.- I will not make any changes to the pump today. Pump refill was conducted today as scheduled. - Pump PETEY is 02/2025. We will plan for replacemen t surgery.- I will follow up for next pump refill. Degenerati on of lumbar intervertebral disc 27543108 M51.369 Pain of bi lateral knee joints 0252474530 55158 M25.561 M25.562 Paresthesi a of upper limb 82188984 R20.2 Pain of ri ght shoulder joint 5799575574 0623855 M25.511 [id number] Health Concerns Section Related Observation LastModified by Organization Detai ls LastModified Time None Recorded Concern Status LastModified by Organization Details LastModified Time None Recorded Payers Encounter Date Sequence Insurance Name Policy Number Policy Stoner Covered Member ID Stoner Member ID Guarantor Name 01/15/2025 2 [place] [employer] - FFS/TRADITIO NAL Johanny Molina [id number] Johanny Molina 01/15/2025 1 [place] Johanny Molina [id number] Johanny Molina Notes Date Note Type Note Provider Name and Address Organization Details Recorded Time 01/15/2025 text/html ROS as noted in the HPI Ms. Molina has a history of lumbar [...] her pain is well-controlled at this time. Patient's pain level today is a 7/10. Nicholas Guzman MD [id number] [facility], [place], [address], [facility] - [place] - [place] & [place] 01/17/2025 08:22:51 OBGyn Episode No OBEpisode recorded.
--- OUTSIDE RECORDS SUMMARY | 2025-02-14 08:13 | XMS_ITS | Data Portability ---
Author Organization ANITA - [facility] & MIGUEL Martinez ADMIN Address [address] [place] [address] Assessment Encounter Date Assessment Date Assessment LastModified by Organization Details LastModified Time 01/24/2023 01/24/2023 Ms. Molina has a history [...] cervical MRI today to be done at [facility]. Originally the patient was unsure [...] __ __ __ __ __ __ ADAM: [id number] I have reviewed patient's ADAM report prior to prescribing Schedule II, III, and IV medications that require review by law. [email or web address] Not available 01/24/2023 13:46:08 08/21/2023 08/21/2023 Ms. [...] __ __ __ __ __ __ ADAM: [id number] I have reviewed patient's ADAM report prior to prescribing Schedule II, III, and IV medications that require review by law. [email or web address] Not available 08/22/2023 15:51:14 05/06/2024 05/06/2024 Ms. Molina has a history of lumbar degenerative disc disease, congenital elephantiasis, and right knee osteoarthritis presented in our clinic for chronic pain management. The patient is S/P intrathecal pain pump implant. The patient has a history of recurrent UTI. [email or web address] Not available 05/06/2024 18:19:17 09/16/2024 09/16/2024 Ms. Molina has a history of lumbar degenerative disc disease, congenital elephantiasis, and right knee osteoarthritis presented in our clinic for chronic pain management. The patient is S/P intrathecal pain pump implant. The patient has a history of recurrent UTI. - pump refill [email or web address] Not available 09/17/2024 16:18:01 01/15/2025 01/15/2025 Ms. Molina has a history of lumbar degenerative disc disease, congenital elephantiasis, and right knee osteoarthritis presented in our clinic for chronic pain management. The patient is S/P intrathecal pain pump implant. The patient has a history of recurrent UTI. - Pain pump refill Not available 01/16/2025 17:44:50 Plan of Treatment Reminders Order Date Submit Date Provider Last Modified By Organization Details Last Modified Time Details Appointments OV EST 15 2024 03:00P Adry Guzman MD Not available Not available Not available Lab None recorded . Referral None recorded . Procedures intrathe georgina pump refill (PROC) - REFILL WITH MORPHINE 3 MG/ML 2024 025 carlyn Guzman MD, [address], [address], [place], [address], 01/15/2025 13:13:11 intrathe georgina pump refill (PROC) 2024 025 [email or web address] Nicholas Guzman MD, [address], [address], [place], [address], 09/25/2024 11:50:01 subacrom ial injectio n (PROC) - , 61439 Right subacrom ial bursa 2024 025 [email or web address] Nicholas Guzman MD, [address], [address], [place], [address], 10/08/2024 16:15:31 intrathe georgina pump refill (PROC) - refill with morphine 3 mg/mL 2023 024 [email or web address] Not available 07/04/2024 15:48:35 Surgeries None recorded . Imaging MRI, cervical spine, w/o contrast - C-Spine to assess overall bony architec ture and degree of degenera tion. 2022 023 [email or web address] [facility] ([facility] [address], [place], [address], 02/21/2023 14:09:32 Medication Orders None recorded . Patient TargetsNo targets recorded. Patient Instructions Encounter Date Encounter Id Patient Instructions Last Modified By Organization Details Last Modified Time 05/06/2024 [id number] I have discussed in great detail our [...] __ __ __ __ __ __ ADAM: [id number] I have reviewed patient's ADAM report prior to prescribing Schedule II, III, and IV medications that require review by law. [email or web address] Not available 05/06/2024 18:18:23 09/16/2024 [id number] I have discussed in great detail our [...] IV medications that require review by law. [email or web address] Not available 09/17/2024 16:17:00 01/15/2025 [id number] I have discussed in great detail our [...] IV medications that require review by law. [email or web address] Not available 01/10/2025 13:25:31 Reason for Referral None Reported. Results Created Date Observation Date Name Description Value Unit Range Abnormal Flag Note LastModifiedBy Organization Detail LastModifiedTime 02/13/2001/30/2025 imagi ng/rick gallagher tic resul t No observ ation record ed. [facility] ([facility]) [address], [place], [address], 02/12/2025 02:15:21 Result Notes None recorded. Problems Name Problem SNOMED Code Status Onset Date Resolution Date Notes Provider Name and Address Organization Details Recorded Time Symbolic dysfunction 142765884 Active 2022 Angi rolon, ANITA - [facility]NT [facility] & [place] 3 11:21:45 Type 2 diabetes mellitus 49875748 Active 2022 Angi Lantigua null, ANITA - [facility] - [place] & [place] 3 11:21:58 Vitamin D deficiency 59210292 Active 2022 Angi Lantigua null, ANITA - [facility] - [place] & [place] 3 11:22:20 Hypercholes terolemia 53447634 Active 2022 Angi Lantigua null, [place] - [facility] - [place] & [place] 3 11:22:36 Hypokalemia 17455990 Active 2022 Angi Lantigua null, [place] - [facility] - [place] & [place] 3 11:22:42 Major depressive disorder 101334124 Active 2022 Angi Lantigua null, [place] - [facility] - [place] & [place] 3 11:22:49 Behavioral and emotional disorder with onset in childhood 887908929 Active 2022 Angi Lantigua null[place] - [place] - [place] & [place] 3 11:23:14 Neuropathy 051728658 Active 2022 Angi Lantigua null[place] - [place] - [place] & [place] 3 11:23:29 Lymphedema 973179848 Active 2022 Angi Lantigua null[place] - [facility] - [place] & [place] 3 11:23:40 Gastroesoph ageal reflux disease 561820659 Active 2022 Angi Lantigua null, [place] - [facility] - [place] & [place] 3 11:23:49 Constipatio n 28668247 Active 2022 Angi Lantigua null[place] - [place] - [place] & [place] 3 11:23:54 Dysphagia 30942701 Active 2022 Angi Lantigua null[place] - [place] - [place] & [place] 3 11:24:23 Seizure 70083266 Active 2022 Angi Lantigua null[place] - [place] - [place] & [place] 3 11:24:48 Morbid obesity 174308206 Active 2022 Angi Lantigua null[place] - [place] - [place] & [place] 3 11:24:59 Injury of head 99344834 Active 2022 Angi Lantigua null[place] - [place] - [place] & [place] 3 11:25:20 Pain of bilateral knee joints 6795426433833 04 Active 2022 Meggan Swain null[place] - [facility] - [place] & [place] 3 12:24:31 Myofascial pain 915907120 Active 2022 Meggan Swain [place] - [facility] - [place] & [place] 3 12:24:32 Osteoarthri tis of left knee joint 7186404942395 09 Active 2022 Meggan Swain null, [place] - [facility] - [place] & [place] 3 12:24:41 Osteoarthri tis of right knee joint 1175347371618 00 Active 2022 Meggan Swain null[place] - [facility] - [place] & [place] 3 12:53:37 Paresthesia of upper limb 97588704 Active 2022 Meggan Swain null, [place] - [facility] - [place] & [place] 3 15:51:15 Pain in cervical spine 824502481 Active 2022 Meggan Swain null[place] - [place] - [place] & [place] 3 15:51:16 Degeneratio n of lumbar interverteb ral disc 27539354 Active 2023 Meggan rolon, [place] - [facility] - [place] & [place] 4 18:18:48 Chronic pain syndrome 395014662 Active 2023 Meggan Swain null, [place] - [facility] - [place] & [place] 4 18:18:53 Problem Notes None recorded. Procedures Surgical History Date Name Laterality Status Provider Name and Address Organization Details Recorded Time 01/16/20 25 Intrathecal Drug (ITD) Pump Refill completed Gloria HOWARD - [facility] - [place] & [place] 01/15/2025 13:09:39 01/16/20 25 PUMP CHANGES completed Gloria Hallson [place] [facility] & [place] 01/15/2025 13:09:00 09/17/19 25 Intrathecal Drug (ITD) Pump Refill completed Gloria Hallson [place] - [facility] & [place] 09/16/2024 14:08:48 09/17/19 25 PUMP CHANGES completed Gloria Hallson [place] - [facility] - [facility] & [place] 09/16/2024 14:08:37 09/10/19 25 Intrathecal Drug (ITD) Pump Refill cancelled Selene HOWARD - [facility] & [place] 09/05/2024 11:22:07 09/10/19 25 PUMP CHANGES cancelled Selene HOWARD - [facility] - [facility] & [place] 09/05/2024 11:22:07 05/06/20 24 Intrathecal Drug (ITD) Pump Refill completed Gloria HOWARD - [facility] & [place] 05/06/2024 16:51:22 05/06/20 24 PUMP CHANGES completed Meggan HOWARD - [facility] - [facility] & [place] 05/06/2024 18:18:02 01/25/20 23 PUMP CHANGES completed Vivi HOWARD - [facility] - [facility] & [place] 01/24/2023 13:50:17 11/04/19 23 PUMP CHANGES completed Vivi HOWARD - [facility] - [place] & [place] 11/03/2022 13:20:28 10/04/19 23 PUMP CHANGES completed ALETHEA GRULLON [address] [facility], [place], [address] ANITA - [facility] - [facility] & [place] 10/04/2022 11:54:22 09/21/19 23 PUMP CHANGES completed Vivi HOWARD - [facility] - [facility] & [place] 09/21/2022 08:03:23 07/12/19 23 PUMP CHANGES completed Meggan HOWARD - [facility] - [place] & [place] 07/12/2022 12:59:56 Imaging Results None recorded. Procedure Notes None recorded. Medical Equipment None Reported. Allergies Allergen ID Allergen Name Allergen Category Reaction Reaction Severity Criticality Documentation Date Start Date Code Code System Note Provider Name and Address Organization Details Recorded Time 37792 tramadol medicatio n Not available Not available Not available 05/19/2022 82435 RxNorm Angijohn Lantigua gonzales, ANITA - [place] - [place] & [place] 11:03:13 86760 Wellbutri n medicatio n Not available Not available Not available 05/19/2022 20700 RxNorm Angijohn Lantigua gonzales, [place] - [facility] - [place] & [place] 11:03:20 42109 influenza virus vaccine, specific Not available Not available Not available Not available 05/19/2022 Angi Lantigua null, [facility] & [place] 3 11:03:38 85617 aspirin medicatio n Not available Not available Not available 05/19/2022 1191 RxNorm Angi rolon, [facility] & [place] 3 11:03:45 40287 azithromy ammon medicatio n Not available Not available Not available 05/19/2022 11190 RxNorm Angi rolon, [facility] & [place] 3 11:03:51 40781 Cephalosp brant (substanc e) medicatio n Not available Not available Not available 05/19/2022 97485 7003 SNOMED Angi rolon, [facility] & [place] 3 11:03:58 Medications Name Sig Start Date [...] azelastine 137 mcg (0.1 %) nasal spray [place] 2 sprays twice a day by intranasal [...] Not Available lactulose active Not Available Not Mrava ilable Not Available ferrous sulfate active Not [...] [degF] 91 % 91 % 60 /min 104/71 mm[Hg] [facility] & [place] 4 13:49:48 Date Recorded Body temperature Oxygen saturation Oxygen saturation in Arterial blood by Pulse oximetry Heart rate Systolic And Diastolic Provider Name and Address Organization Details Last Updated DateTime 5 96.9 [degF] 98 % 98 % 81 /min 120/73 mm[Hg] Andria Oliver [facility] & [place] 5 08:55:54 Date Recorded Body temperature Oxygen saturation Oxygen saturation in Arterial blood by Pulse oximetry Heart rate Systolic And Diastolic Provider Name and Address Organization Details Last Updated DateTime 5 97.5 [degF] 92 % 92 % 68 /min 109/55 mm[Hg] [facility] & [place] 5 09:59:17 Date Recorded Body temperature Oxygen saturation Oxygen saturation in Arterial blood by Pulse oximetry Heart rate Systolic And Diastolic Provider Name and Address Organization Details Last Updated DateTime 5 97.8 [degF] 97 % 97 % 73 /min 145/60 mm[Hg] [place] [facility] & [place] 5 09:39:57 Date Recorded Body temperature Oxygen saturation Oxygen saturation in Arterial blood by Pulse oximetry Heart rate Systolic And Diastolic Provider Name and Address Organization Details Last Updated DateTime 3 96.9 [degF] 100 % 100 % 64 /min 123/70 mm[Hg] [place] [facility] & [place] 3 13:25:55 Date Recorded Body temperature Oxygen saturation Oxygen saturation in Arterial blood by Pulse oximetry Heart rate Respiratory rate Systolic And Diastolic Provider Name and Address Organization Details Last Updated DateTime 3 98.1 [degF] 99 % 99 % 63 /min 20 /min 113/57 mm[Hg] Gloria Mcdowell [facility] & [place] 3 11:11:46 Date Recorded Body temperature Oxygen saturation Oxygen saturation in Arterial blood by Pulse oximetry Heart rate Systolic And Diastolic Provider Name and Address Organization Details Last Updated DateTime 4 98.3 [degF] 92 % 92 % 79 /min 119/69 mm[Hg] Andria Oliver [facility] & [place] 4 13:43:26 Social History None recorded. Functional Status None recorded. Mental Status None recorded. Family History Nothing Reported. Medical History No medical history recorded. Gynecological HistoryNo gynecological history recorded. Obstetrics History GPAL:G 0 P 0 0 0 0 Past Encounters Encounter ID Performer Location Encounter Start Date Encounter Closed Date Diagnosis/Indication Diagnosis SNOMED-CT Code Diagnosis ICD10 Code Diagnosis IMO Codes Diagnosis Note [id number] Nandini Dang NP [facility] [address] [place] [address] 05/19/2022 10:29:45 05/19/2022 11:53:43 History of pancreatitis 0102001944 9107 Z87.19 - will recheck labs today- advised usp also obtain an order and check her urine for a UTI [id number] Nicholas Guzman MD [facility] [address] [facility],[address] [place] [address] 07/12/2022 09:50:24 07/12/2022 11:14:21 Osteoarthritis of right knee joint 1144084987 30424 M17.11 Myofascial pain 85588941 9 M79.10 Pain of bi lateral knee joints 5603374982 30202 M25.561 M25.562 Osteoarthr itis of left knee joint 2872752144 42485 M17.12 [id number] Nicholas Guzman MD [facility] [address] [address] 09/20/2022 09:29:32 09/20/2022 11:12:41 Osteoarthritis of right knee joint 1257565094 04416 M17.11 Myofascial pain 86682547 9 M79.10 Pain of bi lateral knee joints 2736772254 11108 M25.561 M25.562 Osteoarthr itis of left knee joint 5075525198 34872 M17.12 [id number] Nicholas Guzman MD [facility] [address] [address] 10/03/2022 09:41:12 10/03/2022 11:02:04 Osteoarthritis of right knee joint 9886829690 59564 M17.11 Myofascial pain 63953238 9 M79.10 Pain of bi lateral knee joints 1404861547 44376 M25.561 M25.562 Osteoarthr itis of left knee joint 9474220404 06650 M17.12 Pain in ce rvical spine 222282904 M54.2 Paresthesi a of upper limb 33076659 R20.2 [id number] Nicholas Guzman MD [facility] [address] [place] [address] 11/03/2022 11:11:01 11/03/2022 11:32:16 Osteoarthritis of right knee joint 4410012915 68477 M17.11 Myofascial pain 40722502 9 M79.10 Pain of bi lateral knee joints 0915144106 08529 M25.561 M25.562 Osteoarthr itis of left knee joint 1924042117 46579 M17.12 Pain in ce rvical spine 776163649 M54.2 Paresthesi a of upper limb 38252973 R20.2 [id number] Nicholas Guzman MD [facility] [facility] [address] [place] [address] 12/14/2022 11:08:42 12/14/2022 12:20:50 Osteoarthritis of right knee joint 5458136739 08239 M17.11 Myofascial pain 70171140 9 M79.10 Pain of bi lateral knee joints 6433898829 31824 M25.561 M25.562 Osteoarthr itis of left knee joint 1186739960 62872 M17.12 Pain in ce rvical spine 309539092 M54.2 Paresthesi a of upper limb 37245521 R20.2 [id number] Nicholas Guzman MD [facility] [address] [place] [address] [place] [address] 01/24/2023 13:07:36 01/24/2023 14:13:51 Osteoarthritis of right knee joint 7394429039 54063 M17.11 Myofascial pain 11835534 9 M79.10 Pain of bi lateral knee joints 5107713661 19983 M25.561 M25.562 Osteoarthr itis of left knee joint 7262355325 09409 M17.12 Pain in ce rvical spine 548679054 M54.2 Paresthesi a of upper limb 70744374 R20.2 [id number] Nicholas Guzman MD [facility] [address] [place] [address],it e [address] [place] [address] 08/21/2023 13:27:34 08/21/2023 14:09:53 Osteoarthritis of right knee joint 7551063179 90939 M17.11 Myofascial pain 44785945 9 M79.10 Pain of bi lateral knee joints 6880021475 74717 M25.561 M25.562 Osteoarthr itis of left knee joint 7238121611 61421 M17.12 Pain in ce rvical spine 409086100 M54.2 Paresthesi a of upper limb 39284276 R20.2 [id number] Nicholas Guzman MD [facility] [address] [facility] [address] [place] [address] 05/06/2024 13:07:48 05/06/2024 14:06:48 Chronic pain syndrome 813075979 G89.4 - It appears that ITPP therapy is effective and the patient is happy with her current dosing.- I will not make any changes to the pump today. Pump refill was conducted today as scheduled. - I will follow up for next pump refill. Pain of bi lateral knee joints 3058644806 36233 M25.561 M25.562 Paresthesi a of upper limb 02115708 R20.2 Degenerati on of lumbar intervertebral disc 96989390 M51.930 [id number] Nicholas Guzman MD [facility] [address] [facility] [address] [place] [address] 09/16/2024 09:31:00 09/16/2024 11:05:15 Chronic pain syndrome 135679637 G89.4 - It appears that ITPP therapy is effective and the patient is happy with her current dosing.- I will not make any changes to the pump today. Pump refill was conducted today as scheduled. - I will follow up for next pump refill. Degenerati on of lumbar intervertebral disc 02177986 M51.369 Pain of bi lateral knee joints 4153933381 54699 M25.561 M25.562 Paresthesi a of upper limb 32463053 R20.2 Pain of ri ght shoulder joint 9529834803 4770034 M25.511 900940 - The patient has right shoulder pain [...] follow up in 2 weeks post injection. [id number] Nicholas Guzman MD [facility] [address] [place] [address] 01/15/2025 09:06:57 01/15/2025 10:00:32 Chronic pain syndrome 261170224 G89.4 - It appears that ITPP therapy is effective and the patient is happy with her current dosing.- I will not make any changes to the pump today. Pump refill was conducted today as scheduled. - Pump PETEY is 02/2025. We will plan for replacemen t surgery.- I will follow up for next pump refill. Degenerati on of lumbar intervertebral disc 99958512 M51.369 Pain of bi lateral knee joints 4370327635 95938 M25.561 M25.562 Paresthesi a of upper limb 77852719 R20.2 Pain of ri ght shoulder joint 0517904618 9679211 M25.511 030303 Health Concerns Section Related Observation LastModified by Organization Detai ls LastModified Time None Recorded Concern Status LastModified by Organization Details LastModified Time None Recorded Advance Directives Directive None Recorded Payers Insurance Date Sequence Insurance Name Policy Number Policy Stoner Covered Member ID Stoner Member ID Guarantor Name 01/13/2025 1 [place] Johanny Molina [id number] Johanny Molina 05/06/2024 2 [place] [id number] [id number] Johanny Molina 05/06/2024 1 [place] [facility] [id number] Joh[place] [id number] Johanny Molina 05/06/2024 3 [employer] [place] (MEDICA[place]ACEMENT - HMO) Johanny Molina [id number] Johanny Molina 01/13/2025 2 [facility] - FFS/TRADITIONA L Johanny Molina [id number] Johanny Molina Notes Date Note Type Note Provider Name and Address Organization Details Recorded Time 3 text/html ROS as noted in the HPI [...] Tx: deniesImaging/Studies: none Nicholas Guzman MD [address] [facility], [place], [address], [facility] - [place] - [place] & [place] 01/25/2023 15:21:59 4 text/html ROS as noted in the HPI [...] pastInterventional Tx: deniesImaging/Studies: none Nicholas Guzman MD [address] [facility], [place], [address], [facility] & [place] 08/22/2023 15:51:47 4 text/html ROS as noted in the HPI [...] pastInterventional Tx: deniesImaging/Studies: none Nicholas Guzman MD [address] [facility], [place], [address], [facility] - LPNT - [place] & [place] 05/10/2024 10:04:10 5 text/html ROS as noted in the HPI [...] none Nicholas Guzman MD [address], [place], [address], [facility] & [place] 09/20/2024 12:17:59 5 text/html ROS as noted in the HPI [...] today is a 7/10. Nicholas Guzman MD [address], [place], [address], [facility] & [place] 01/17/2025 08:22:51 OBGyn Episode No OBEpisode recorded.
--- OUTSIDE RECORDS SUMMARY | 2025-02-14 08:13 | XMS_ITS | Clinical Summary ---
Author Organization 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
[2025-02-14 08:50] LABS: Hemoglobin A1C 5.4 % (4.0-6.0)
== END 2025-02-14 23:59 | disposition home or self-care (01) ==
PROVIDERS: PCP Family Medicine; Visit Provider Family Medicine
DX: E11.9 Type 2 diabetes mellitus without complications (principal)
CPT/HCPCS: 36415; 83036

== ENCOUNTER 2025-03-19 08:41 | Outpatient (CLI) | payer MEDICARE, MEDICAID, SELFPAY ==
--- OUTSIDE RECORDS SUMMARY | 2025-02-20 09:36 | XMS_ITS | Continuity of Care Document ---
Author Organization [facility] Phone Care Team Providers Care Service Crew Supervisor Name Role Phone GABRIEL GUZMAN Surgeon NO, DEFINED P Primary Care Unavailable GABRIEL GUZMAN Admitting GABRIEL GUZMAN Unavailable GABRIEL GUZMAN Primary Attending [phone] ALLERGIES AND ADVERSE REACTIONS ALLERGIES AND ADVERSE REACTIONS Code System Allergy Substance Adverse Reaction Date Reaction (Severity) Comment Status Reported By Updated By [id number] SNOMED CT Sulfa Antibiotics Rash active Patient [id number] on February 17, 2025 1:47:09 PM UT 2231 RXNorm Keflex Rash active Patient [id number] on February 17, 2025 1:47:09 PM UTC 4053 RXNorm Erythromycin Drug-induce d nausea and vomiting active Patient [id number] on February 17, 2025 1:47:10 PM UTC Tramadol Adverse reaction to substance itching active Patient [id number] on February 17, 2025 1:47:10 PM UTC 67735 RXNorm Wellbutrin Adverse reaction to substance seizures active Patient [id number] on February 17, 2025 1:47:10 PM UTC 81509 RXNorm Lipitor Drug-induce d nausea and vomiting active Patient [id number] on February 17, 2025 1:47:10 PM UTC [id number] SNOMED CT NSAIDS Adverse reaction to substance deathly sick active Patient [id number] on February 17, 2025 1:47:11 PM UTC 4493 RXNorm Prozac Adverse reaction to substance anxiety active Patient [id number] on February 17, 2025 1:47:11 PM UTC 22607 RXNorm MOBIC Adverse reaction to substance feel weird active Patient [id number] on February 17, 2025 1:47:11 PM UTC ASSESSMENTS Chronic pain syndrome ; FAMILY HISTORY RELATION: Father Status: Cause of : Unknown Age at : 85 SNOMED-CT Diagnosis Age At Onset Information not available RELATION: Mother Status: Cause of : Unknown Age at : 90 SNOMED-CT Diagnosis Age At Onset Information not available PROBLEMS PATIENT PROBLEMS Code Description/Comments Category Status Upda minh By [id number] Chronic pain syndrome active NVA [id number] on February 18, 2025 11:27:53 AM UTC RESULTS Patient: JOHN LOPEZ Date of : 1960 1 LABORATORY RESULTS ORDER 1000: GLUCOSE BEDSIDE TESTING (LOINC: 45355-8) ORDER DATE: February 18, 2025 2:52:00 PM UTC Specimen Source: WHOLE BLOOD Specimen Type: Whole blood s ample PERFORMING LAB: [address] [id number] Result Comment: February 18 2:58:00 PM UT Test performed by: [id number] ; Instrument: [id number] Final Result Date: February 18, 2025 2:58:00 PM UT LOINC TEST [place] [address]-2 Glucose [Mass/volume ] in Capillary blood by Glucometer N 76 mg/dl 70 mg/dl - 105 mg/dl February 18, 2025 2:58:00 PM UT LABORATORY NARRATIVE RESULTS Information is not available RADIOLOGY RESULTS Information is not available PATHOLOGY NARRATIVE RESULTS ORDER 1100: PATHOLOGY SPECIM EN (LOINC: 10708-6) ORDER DATE: February 18, 2025 4:04:00 PM UTC Specimen Source: PATH Specimen Type: Refer to path ology laboratory PERFORMING LAB: [address] [id number] Final Result Date: February 6:14:00 AM UTC (TECH: AY) TEST: PATHOLOGY SPECIMEN SEE REPORT MICROBIOLOGY RESULTS No Micro Labs/Results Exist for Patient BLOOD ADMIN RESULTS Information is not available TREATMENT PLAN DISCHARGE MEDICATIONS Status RXNORM Medication Dose Route Frequency Dates Comments U pdated By Continued [id number] MAGnesium-Oxi de Oral Tablet 400 (240 Mg) MG 2 TAB ORAL ONCE DAILY Prescrib ed: February 18, 2025 4:11:47 PM UT [id number] on February 18, 2025 4:11:47 PM UT Continued 164922 Meclizine HCl Oral Tablet 12.5 MG 1 TAB ORAL TWICE A DAY NEEDED Prescrib ed: February 18, 2025 4:11:47 PM [facility] [id number] on February 18, 2025 4:11:47 PM UT Continued 436520 Atorvastatin Calcium Oral Tablet 20 MG 20 MG ORAL AT BEDTIME Prescrib ed: February 18, 2025 4:11:47 PM [facility] [id number] on February 18, 2025 4:11:47 PM UT Continued 973743 Loperamide HCl Oral Capsule 2 MG 1 CAP ORAL EVERY SIX HOURS NEEDED Prescrib ed: February 18, 2025 4:11:47 PM [facility] [id number] on February 18, 2025 4:11:47 PM UT Continued 637582 MiraLax Mix-In Startex Oral Packet 17 GM 17 GM ORAL ONCE DAILY Prescrib ed: February 18, 2025 4:11:47 PM [facility] [id number] on February 18, 2025 4:11:47 PM UT Continued [id number] Bisacodyl Laxative Rectal Suppository 10 MG 1 SUP PER RECTUM - INTERNAL ONCE DAILY NEEDED Prescrib ed: February 18, 2025 4:11:47 PM [facility] [id number] on February 18, 2025 4:11:47 PM UT Continued 477726 Omeprazole Oral Capsule Delayed Release 20 MG 20 MG ORAL ONCE DAILY Prescrib ed: February 18, 2025 4:11:47 PM [facility] [id number] on February 18, 2025 4:11:47 PM UT Continued [id number] Breo Ellipta Inhalation Aerosol Powder Breath Activated 100-25 MCG/ACT 1 PUF INHALED ONCE DAILY Prescrib ed: February 18, 2025 4:11:47 PM [facility] [id number] on February 18, 2025 4:11:47 PM UT Continued 3734362 Azelastine HCl Nasal Solution 137 MCG/SPRAY 1 SPR NASAL TWICE A DAY Prescrib ed: February 18, 2025 4:11:47 PM [facility] [id number] on February 18, 2025 4:11:47 PM UT Continued 135924 Metoprolol Succinate ER Oral Tablet Extended Release 24 Hour 25 MG 1 TAB ORAL ONCE DAILY Prescrib ed: February 18, 2025 4:11:47 PM [facility] [id number] on February 18, 2025 4:11:47 PM UT Continued 698554 Milk of Magnesia Oral Suspension 1200 MG/15ML 15 ML ORAL ONCE DAILY NEEDED Prescrib ed: February 18, 2025 4:11:47 PM [facility] [id number] on February 18, 2025 4:11:47 PM UT Continued 168551 Bethanechol Chloride Oral Tablet 25 MG 25 MG ORAL FOUR TIMES A DAY Prescrib ed: February 18, 2025 4:11:47 PM [facility] [id number] on February 18, 2025 4:11:47 PM UT Continued Cranberry Oral Capsule 450 MG 2 TAB ORAL ONCE DAILY Prescrib ed: February 18, 2025 4:11:47 PM [facility] [id number] on February 18, 2025 4:11:47 PM UT Continued 9473454 Refresh Plus Ophthalmic Solution 0.5 % 1 DRP EACH EYE EVERY SIX HOURS NEEDED Prescrib ed: February 18, 2025 4:11:47 PM [facility] [id number] on February 18, 2025 4:11:47 PM [facility] Continued 6130854 Divalproex Sodium ER Oral Tablet Extended Release 24 Hour 500 MG 500 MG ORAL TWICE A DAY Prescrib ed: February 18, 2025 4:11:47 PM [facility] [id number] on February 18, 2025 4:11:47 PM UT Continued 037262 Carafate Oral Tablet 1 GM 1 TAB ORAL TWICE A DAY Prescrib ed: February 18, 2025 4:11:47 PM [facility] [id number] on February 18, 2025 4:11:47 PM UT Continued 524708 Ondansetron HCl Oral Tablet 4 MG 4 MG ORAL THREE TIMES A DAY NEEDED Prescrib ed: February 18, 2025 4:11:47 PM [facility] [id number] on February 18, 2025 4:11:47 PM UT Continued 6969982 Cetirizine HCl Oral Tablet 10 MG 10 MG ORAL ONCE DAILY Prescrib ed: February 18, 2025 4:11:47 PM [facility] [id number] on February 18, 2025 4:11:47 PM UT Continued [id number] Potassium Chloride Yanet ER Oral Tablet Extended Release 20 MEQ 20 MEQ ORAL ONCE DAILY Prescrib ed: February 18, 2025 4:11:47 PM [facility] [id number] on February 18, 2025 4:11:47 PM [facility] Continued 179922 Fenofibrate Oral Tablet 145 MG 145 MG ORAL AT BEDTIME Prescrib ed: February 18, 2025 4:11:47 PM UT [id number] on February 18, 2025 4:11:47 PM UTC Continued 467202 HYDROcodone-A cetaminophen Oral Tablet 5-325 MG 1 TAB ORAL TWICE A DAY NEEDED Prescrib ed: February 18, 2025 4:11:47 PM UT [id number] on February 18, 2025 4:11:47 PM UTC Continued 865845 Ferrous Sulfate Oral Tablet 325 (65 Fe) MG 1 TAB ORAL THREE TIMES A DAY Prescrib ed: February 18, 2025 4:11:47 PM [facility] [id number] on February 18, 2025 4:11:47 PM UTC Continued 032007 Terazosin HCl Oral Capsule 10 MG 10 MG ORAL AT BEDTIME Prescrib ed: February 18, 2025 4:11:47 PM UT [id number] on February 18, 2025 4:11:47 PM UT Continued 456515 Tylenol Extra Strength Oral Tablet 500 MG 1 TAB ORAL EVERY SIX HOURS NEEDED Prescrib ed: February 18, 2025 4:11:47 PM [facility] [id number] on February 18, 2025 4:11:47 PM UT Continued 065060 Fludrocortiso ne Acetate Oral Tablet 0.1 MG 1 TAB ORAL ONCE DAILY Prescrib ed: February 18, 2025 4:11:47 PM [facility] [id number] on February 18, 2025 4:11:47 PM UT Continued 764156 Senna Laxative Oral Tablet 8.6 MG 1 TAB ORAL TWICE A DAY Prescrib ed: February 18, 2025 4:11:47 PM [facility] [id number] on February 18, 2025 4:11:47 PM UT Continued 858686 Singulair Oral Tablet 10 MG 1 TAB ORAL ONCE DAILY Prescrib ed: February 18, 2025 4:11:47 PM UT [id number] on February 18, 2025 4:11:47 PM UTC Continued 320638 Vitamin D3 Maximum Strength Oral Capsule 125 MCG (5000 UT) 1 TAB ORAL ONCE DAILY Prescrib ed: February 18, 2025 4:11:47 PM [facility] [id number] on February 18, 2025 4:11:47 PM UT Continued 944424 Gabapentin Oral Capsule 300 MG 300 MG ORAL THREE TIMES A DAY Prescrib ed: February 18, 2025 4:11:47 PM UT [id number] on February 18, 2025 4:11:47 PM UT Continued 751570 metFORMIN HCl Oral Tablet 500 MG 1 TAB ORAL TWICE A DAY Prescrib ed: February 18, 2025 4:11:47 PM [facility] [id number] on February 18, 2025 4:11:47 PM UT Continued 475715 Marlene-Tussin Oral Liquid 100 MG/5ML 100 MG ORAL EVERY FOUR HOURS NEEDED Prescrib ed: February 18, 2025 4:11:47 PM [facility] [id number] on February 18, 2025 4:11:47 PM UT Continued 9730177 Vascepa Oral Capsule 1 GM 2 GM ORAL TWICE A DAY Prescrib ed: February 18, 2025 4:11:47 PM [facility] [id number] on February 18, 2025 4:11:47 PM UT Continued 0203647 Fluticasone Furoate Ellipta Inhalation Aerosol Powder Breath Activated 50 MCG/ACT 2 SPR NASAL ONCE DAILY Prescrib ed: February 18, 2025 4:11:47 PM [facility] [id number] on February 18, 2025 4:11:47 PM UT Continued 904221 Venlafaxine HCl ER Oral Capsule Extended Release 24 Hour 150 MG 150 MG ORAL TWICE A DAY Prescrib ed: February 18, 2025 4:11:47 PM [facility] [id number] on February 18, 2025 4:11:47 PM UT Continued 321345 Furosemide Oral Tablet 40 MG 40 MG ORAL ONCE DAILY Prescrib ed: February 18, 2025 4:11:47 PM [facility] [id number] on February 18, 2025 4:11:47 PM UT Continued 0553645 AZO Urinary Pain Relief Oral Tablet 95 MG 1 TAB ORAL THREE TIMES A DAY NEEDED Prescrib ed: February 18, 2025 4:11:47 PM [facility] [id number] on February 18, 2025 4:11:47 PM UT Continued 1658979 Linzess Oral Capsule 290 MCG 290 MCG ORAL AT BEDTIME Prescrib ed: February 18, 2025 4:11:47 PM [facility] [id number] on February 18, 2025 4:11:47 PM UT Continued 681375 Lisinopril Oral Tablet 5 MG 5 MG ORAL ONCE DAILY Prescrib ed: February 18, 2025 4:11:47 PM [facility] [id number] on February 18, 2025 4:11:47 PM UT Continued 1871125 Brandon Mcclellan Intramuscular Prefilled Syringe 300 MG 300 MG INTRAMUSCULA R ONCE EACH MONTH Prescrib ed: February 18, 2025 4:11:47 PM [facility] [id number] on February 18, 2025 4:11:47 PM [facility] Continued [id number] Ipratropium-A lbuterol Inhalation Solution 0.5-2.5 (3) MG/3ML 3 ML INHALED EVERY SIX HOURS NEEDED Prescrib ed: February 18, 2025 4:11:47 PM [facility] [id number] on February 18, 2025 4:11:47 PM [facility] Continued 360422 Lactulose Oral Solution 10 GM/15ML 30 ML ORAL ONCE DAILY NEEDED Prescrib ed: February 18, 2025 4:11:47 PM [facility] [id number] on February 18, 2025 4:11:47 PM [facility] Continued 0733803 Albuterol Sulfate HFA Inhalation Aerosol Solution 108 (90 Base) MCG/ACT 2 PUF INHALED EVERY SIX HOURS NEEDED Prescrib ed: February 18, 2025 4:11:47 PM [facility] [id number] on February 18, 2025 4:11:47 PM [facility] Continued 330890 Aspirin 81 Oral Tablet Chewable 81 MG 81 MG ORAL ONCE DAILY Prescrib ed: February 18, 2025 4:11:47 PM [facility] [id number] on February 18, 2025 4:11:47 PM [facility] PATIENT OPEN ORDERS Code System Descriptio n Frequency Occurrenc es Priority Category Start Date Ordering Physician Updated By Patient open order informati on is not available. SCHEDULED PROCEDURES Code System Description Status Scheduled Date Upd ated By Patient scheduled procedure information is not available. MEDICATIONS HOME MEDICATIONS Status RXNORM [facility] Medication Dose Route Frequency Dates Comments Reported By Updated By Active [id number] 99076 62511 0 Tylenol Extra Strength Oral Tablet 500 MG 1.0 TAB ORAL Q6HPRN Last Dose: [id number] on February 18, 2025 11:29:31 AM [facility] Active 9264077 49529 40150 8 Albuterol Sulfate HFA Inhalation Aerosol Solution 108 (90 Base) MCG/ACT 2.0 PUF INHALA TION Q6HPRN Last Dose: unknown last dose [id number] on February 18, 2025 2:48:10 PM [facility] Active 76528 60792 2 AZO Urinary Pain Relief Oral Tablet 95 MG 1.0 TAB ORAL TIDPRN Last Dose: unknown last dose [id number] on February 18, 2025 2:48:20 PM UTC Active 60942 96985 2 Bisacodyl Laxative Rectal Suppository 10 MG 1.0 SUP RECTAL DAILYPRN Last Dose: unknown last dose [id number] on February 18, 2025 2:48:38 PM UTC Active 42866 00038 6 Marlene-Tussin Oral Liquid 100 MG/5ML 100.0 MG ORAL Q4HPRN Last Dose: last dose unknown [id number] on February 18, 2025 2:49:15 PM UTC Active 4854961 42951 22291 1 Ipratropium- Albuterol Inhalation Solution 0.5-2.5 (3) MG/3ML 3.0 ML INHALA TION Q6HPRN Last Dose: last dose unknown [id number] on February 18, 2025 2:49:40 PM UTC Active 981646 90330 73073 8 Lactulose Oral Solution 10 GM/15ML 30.0 ML ORAL DAILYPRN Last Dose: last dose unknown [id number] on February 18, 2025 2:49:55 PM UTC Active 439189 72847 01814 1 Loperamide HCl Oral Capsule 2 MG 1.0 CAP ORAL Q6HPRN Last Dose: [id number] on February 18, 2025 11:29:30 AM UTC Active 497372 59604 29452 0 Meclizine HCl Oral Tablet 12.5 MG 1.0 TAB ORAL BIDPRN Last Dose: last dose unknown [id number] on February 18, 2025 2:50:10 PM UTC Active 5926927 50987 95691 0 Abilify Maintena Intramuscula r Prefilled Syringe 300 MG 300.0 MG INTRAM USCULA R QMONTH Last Dose: r 2024 1:00:0 0 PM UTC [id number] on February 18, 2025 2:47:56 PM UTC Active 89378 79985 1 Aspirin 81 Oral Tablet Chewable 81 MG 81.0 MG ORAL DAILY Last Dose: Octobe r 2024 1:00:0 0 PM UTC [id number] on February 18, 2025 2:24:43 PM UTC Active 634377 94055 19267 0 Atorvastatin Calcium Oral Tablet 20 MG 20.0 MG ORAL BEDTIME Last Dose: [facility] 2024 1:00:0 0 AM UTC [id number] on February 18, 2025 2:25:01 PM UT Active 0231557 58696 45707 4 Azelastine HCl Nasal Solution 137 MCG/SPRAY 1.0 SPR NASAL BID Last Dose: [facility] 2024 1:00:0 0 AM UTC [id number] on February 18, 2025 2:25:10 PM UTC Active 906478 81654 06692 0 Bethanechol Chloride Oral Tablet 25 MG 25.0 MG ORAL QID Last Dose: [facility] 2024 1:00:0 0 AM UTC [id number] on February 18, 2025 2:25:21 PM UTC Active 3966690 84304 08564 0 Breo Ellipta Inhalation Aerosol Powder Breath Activated 100-25 MCG/ACT 1.0 PUF INHALA TION DAILY Last Dose: [facility] 2024 1:00:0 0 PM UTC [id number] on February 18, 2025 2:25:34 PM UTC Active 8267745 84121 78561 1 Cetirizine HCl Oral Tablet 10 MG 10.0 MG ORAL DAILY Last Dose: [facility] 2024 1:00:0 0 AM UTC [id number] on February 18, 2025 2:26:07 PM UTC Active 06872 42184 5 Cranberry Oral Capsule 450 MG 2.0 TAB ORAL DAILY Last Dose: [facility] 2024 1:00:0 0 PM UTC [id number] on February 18, 2025 2:26:18 PM UT Active 355293 23604 72371 2 Fenofibrate Oral Tablet 145 MG 145.0 MG ORAL BEDTIME Last Dose: [facility] 2024 1:00:0 0 AM UTC [id number] on February 18, 2025 2:26:28 PM UT Active 6217671 94943 10813 1 Divalproex Sodium ER Oral Tablet Extended Release 24 Hour 500 MG 500.0 MG ORAL BID Last Dose: [facility] 2024 1:00:0 0 AM UTC [id number] on February 18, 2025 2:48:49 PM UTC Active 620607 28063 32336 6 Ferrous Sulfate Oral Tablet 325 (65 Fe) MG 1.0 TAB ORAL TID Last Dose: [facility] 2024 1:00:0 0 AM UTC [id number] on February 18, 2025 2:49:01 PM UTC Active 901988 24685 92506 1 Fludrocortis one Acetate Oral Tablet 0.1 MG 1.0 TAB ORAL DAILY Last Dose: [facility] 2024 1:00:0 0 PM UTC [id number] on February 18, 2025 2:26:38 PM UTC Active 12892 62784 7 Fluticasone Furoate Ellipta Inhalation Aerosol Powder Breath Activated 50 MCG/ACT 2.0 SPR NASAL DAILY Last Dose: [id number] on February 18, 2025 11:29:30 AM UTC Active 330501 85569 91126 5 Furosemide Oral Tablet 40 MG 40.0 MG ORAL DAILY Last Dose: [facility] 2024 1:00:0 0 PM UTC [id number] on February 18, 2025 2:26:52 PM UTC Active 948281 58954 75036 0 Gabapentin Oral Capsule 300 MG 300.0 MG ORAL TID Last Dose: [facility] 2024 1:00:0 0 AM UTC [id number] on February 18, 2025 2:27:02 PM UTC Active 5440941 52965 23068 0 Linzess Oral Capsule 290 MCG 290.0 MCG ORAL BEDTIME Last Dose: [facility] 2024 1:00:0 0 AM UTC [id number] on February 18, 2025 2:27:28 PM UTC Active 734149 19824 00984 1 Lisinopril Oral Tablet 5 MG 5.0 MG ORAL DAILY Last Dose: [facility] 2024 1:00:0 0 PM UTC [id number] on February 18, 2025 2:27:40 PM UTC Active 89368 04119 1 MAGnesium-Ox melisa Oral Tablet 400 (240 Mg) MG 2.0 TAB ORAL DAILY Last Dose: [facility] 2024 1:00:0 0 PM UTC [id number] on February 18, 2025 2:27:51 PM UTC Active 015495 70303 86786 1 metFORMIN HCl Oral Tablet 500 MG 1.0 TAB ORAL BID Last Dose: [facility] 2024 1:00:0 0 AM UTC [id number] on February 18, 2025 2:50:18 PM UTC Active 448718 63683 54350 7 Metoprolol Succinate ER Oral Tablet Extended Release 24 Hour 25 MG 1.0 TAB ORAL DAILY Last Dose: [facility] 2024 1:00:0 0 PM UTC [id number] on February 18, 2025 2:28:06 PM UTC Active 020074 05068 39158 3 Singulair Oral Tablet 10 MG 1.0 TAB ORAL DAILY Last Dose: [facility] 2024 1:00:0 0 PM UT [id number] on February 18, 2025 2:29:04 PM UTC Active 644405 75043 69936 2 Omeprazole Oral Capsule Delayed Release 20 MG 20.0 MG ORAL DAILY Last Dose: [facility] 2024 1:00:0 0 PM UT [id number] on February 18, 2025 2:28:27 PM UTC Active 346501 55470 28093 6 MiraLax Mix-In Startex Oral Packet 17 GM 17.0 GM ORAL DAILY Last Dose: [facility] 2024 1:00:0 0 PM UT [id number] on February 18, 2025 2:28:16 PM UTC Active 6373226 24767 80165 1 Potassium Chloride Yanet ER Oral Tablet Extended Release 20 MEQ 20.0 MEQ ORAL DAILY Last Dose: [facility] 2024 1:00:0 0 PM UT [id number] on February 18, 2025 2:28:38 PM UTC Active 96320 44544 1 Senna Laxative Oral Tablet 8.6 MG 1.0 TAB ORAL BID Last Dose: [facility] 2024 1:00:0 0 AM UT [id number] on February 18, 2025 2:28:53 PM UTC Active 215838 18713 64995 0 Carafate Oral Tablet 1 GM 1.0 TAB ORAL BID Last Dose: [facility] 2024 1:00:0 0 AM UTC [id number] on February 18, 2025 2:25:56 PM UTC Active 064630 55936 01108 6 Terazosin HCl Oral Capsule 10 MG 10.0 MG ORAL BEDTIME Last Dose: [facility] 2024 1:00:0 0 AM UT [id number] on February 18, 2025 2:29:14 PM [facility] Active 8160793 09063 05273 0 Vascepa Oral Capsule 1 GM 2.0 GM ORAL BID Last Dose: [facility] 2024 1:00:0 0 AM [facility] [id number] on February 18, 2025 2:29:26 PM [facility] Active 194311 39945 68058 6 Venlafaxine HCl ER Oral Capsule Extended Release 24 Hour 150 MG 150.0 MG ORAL BID Last Dose: [facility] 2024 1:00:0 0 AM [facility] [id number] on February 18, 2025 2:29:38 PM [facility] Active 47929 55459 1 Vitamin D3 Maximum Strength Oral Capsule 125 MCG (5000 UT) 1.0 TAB ORAL DAILY Last Dose: [facility] 2024 1:00:0 0 PM [facility] [id number] on February 18, 2025 2:29:50 PM [facility] Active 61600 40085 2 Milk of Magnesia Oral Suspension 1200 MG/15ML 15.0 ML ORAL DAILYPRN Last Dose: last dose unknown [id number] on February 18, 2025 2:50:29 PM [facility] Active 053386 30287 49333 0 Ondansetron HCl Oral Tablet 4 MG 4.0 MG ORAL TIDPRN Last Dose: [id number] on February 18, 2025 11:29:31 AM [facility] Active 35929 28925 0 Refresh Plus Ophthalmic Solution 0.5 % 1.0 DRP OPHTHA LMIC Q6HPRN Last Dose: [id number] on February 18, 2025 11:29:31 AM [facility] DISCHARGE MEDICATIONS Status RXNORM [facility] Medication Dose Route Frequency Dates Dis pense Data Comments Physician Updated By [facility] ed [id number] 3822 0033 901 MAGnesium-O xide Oral Tablet 400 (240 Mg) MG 2.0 TAB ORAL ONCE DAILY Prescr ibed: [facility] 2024 4:11:4 7 PM [facility] NATALYA MONTANO [id number] on February 18, 2025 4:11:47 PM [facility] ed [id number] 9820 8017 910 Meclizine HCl Oral Tablet 12.5 MG 1.0 TAB ORAL TWICE A DAY NEEDED Prescr ibed: [facility] 2024 4:11:4 7 PM UTC MUNISWAMY GABRIEL K PHY [id number] on February 18, 2025 4:11:47 PM UT Continu ed [id number] 4869 4082 890 Atorvastati n Calcium Oral Tablet 20 MG 20.0 MG ORAL AT BEDTIME Prescr ibed: [facility] 2024 4:11:4 7 PM UTC MUNISWAMY GABRIEL K PHY [id number] on February 18, 2025 4:11:47 PM [facility] Continu ed 637097 9331 8210 001 Loperamide HCl Oral Capsule 2 MG 1.0 CAP ORAL EVERY SIX HOURS NEEDED Prescr ibed: [facility] 2024 4:11:4 7 PM UTC MUNISWAMY GABRIEL K PHY [id number] on February 18, 2025 4:11:47 PM [facility] Continu ed [id number] 7085 0080 676 MiraLax Mix-In Startex Oral Packet 17 GM 17.0 GM ORAL ONCE DAILY Prescr ibed: [facility] 2024 4:11:4 7 PM UT MUNISWAMY GABRIEL K PHY [id number] on February 18, 2025 4:11:47 PM UT Continu ed [id number] 2220 4010 212 Bisacodyl Laxative Rectal Suppository 10 MG 1.0 SUP PER RECTUM - WIENER PACKER AL ONCE DAILY NEEDED Prescr ibed: [facility] 2024 4:11:4 7 PM UT MUNISWAMY GABRIEL K PHY [id number] on February 18, 2025 4:11:47 PM UT Continu ed 142753 2510 5011 832 Omeprazole Oral Capsule Delayed Release 20 MG 20.0 MG ORAL ONCE DAILY Prescr ibed: [facility] 2024 4:11:4 7 PM UTC MUNISWAMY GABRIEL K PHY [id number] on February 18, 2025 4:11:47 PM UT Continu ed [id number] 9014 3085 910 Breo Ellipta Inhalation Aerosol Powder Breath Activated 100-25 MCG/ACT 1.0 PUF INHALE D ONCE DAILY Prescr ibed: [facility] 2024 4:11:4 7 PM UTC MUNISWAMY GABRIEL K PHY [id number] on February 18, 2025 4:11:47 PM UT Continu ed [id number] 1078 2067 684 Azelastine HCl Nasal Solution 137 MCG/SPRAY 1.0 SPR NASAL TWICE A DAY Prescr ibed: [facility] 2024 4:11:4 7 PM [facility] DONOVANROBERTSHELLIE SANDOVALOD K Y [id number] on February 18, 2025 4:11:47 PM [facility] ed [id number] 5191 8459 577 Metoprolol Succinate ER Oral Tablet Extended Release 24 Hour 25 MG 1.0 TAB ORAL ONCE DAILY Prescr ibed: [facility] 2024 4:11:4 7 PM UT DONOVANYOSVANY SANDOVALOD K PHY [id number] on February 18, 2025 4:11:47 PM [facility] ed [id number] 7404 0064 912 Milk of Magnesia Oral Suspension 1200 MG/15ML 15.0 ML ORAL ONCE DAILY NEEDED Prescr ibed: [facility] [facility] 4:11:4 7 PM [facility] Y [id number] on February 18, 2025 4:11:47 PM [facility] ed [id number] 2051 200 Bethanechol Chloride Oral Tablet 25 MG 25.0 MG ORAL FOUR TIMES A DAY Prescr ibed: [facility] 2024 4:11:4 7 PM [facility] MUNISYOSVANY SANDOVALOD K PHY [id number] on February 18, 2025 4:11:47 PM [facility] ed [id number] 765 Cranberry Oral Capsule 450 MG 2.0 TAB ORAL ONCE DAILY Prescr ibed: [facility] 2024 4:11:4 7 PM [facility] NORBERTOFRANK SANDOVALOD K PHY [id number] on February 18, 2025 4:11:47 PM [facility] ed [id number] 7007 3040 330 Refresh Plus Ophthalmic Solution 0.5 % 1.0 DRP EACH EYE EVERY SIX HOURS NEEDED Prescr ibed: [facility] 2024 4:11:4 7 PM [facility] MUNZEBYOSVANY GABRIEL K PHY [id number] on February 18, 2025 4:11:47 PM [facility] ed [id number] 1713 8055 301 Divalproex Sodium ER Oral Tablet Extended Release 24 Hour 500 MG 500.0 MG ORAL TWICE A DAY Prescr ibed: [facility] 2024 4:11:4 7 PM [facility] MUNISWAMY GABRIEL K PHY [id number] on February 18, 2025 4:11:47 PM [facility] ed [id number] 8890 4017 110 Carafate Oral Tablet 1 GM 1.0 TAB ORAL TWICE A DAY Prescr ibed: [facility] 2024 4:11:4 7 PM UT MUNISWAMY GABRIEL K PHY [id number] on February 18, 2025 4:11:47 PM [facility] ed [id number] [id number] 1015 330 Ondansetron HCl Oral Tablet 4 MG 4.0 MG ORAL THREE TIMES A DAY NEEDED Prescr ibed: [facility] 2024 4:11:4 7 PM [facility] MUNISWAMY GABRIEL K PHY [id number] on February 18, 2025 4:11:47 PM [facility] ed [id number] 7951 8363 701 Cetirizine HCl Oral Tablet 10 MG 10.0 MG ORAL ONCE DAILY Prescr ibed: [facility] 2024 4:11:4 7 PM [facility] MUNISWAMY GABRIEL K PHY [id number] on February 18, 2025 4:11:47 PM [facility] Continu ed [id number] 1163 7072 001 Potassium Chloride Yanet ER Oral Tablet Extended Release 20 MEQ 20.0 MEQ ORAL ONCE DAILY Prescr ibed: [facility] 2024 4:11:4 7 PM [facility] MUNISWAMY GABRIEL K PHY [id number] on February 18, 2025 4:11:47 PM [facility] ed [id number] 5863 5001 057 Fenofibrate Oral Tablet 145 MG 145.0 MG ORAL AT BEDTIME Prescr ibed: [facility] 2024 4:11:4 7 PM [facility] MUNISWAMY GABRIEL K PHY [id number] on February 18, 2025 4:11:47 PM [facility] ed [id number] 6792 6010 905 HYDROcodone -Acetaminop hen Oral Tablet 5-325 MG 1.0 TAB ORAL TWICE A DAY NEEDED Prescr ibed: [facility] 2024 4:11:4 7 PM [facility] MUNISWAMY GABRIEL K PHY [id number] on February 18, 2025 4:11:47 PM [facility] Continu ed [id number] 1637 4001 426 Ferrous Sulfate Oral Tablet 325 (65 Fe) MG 1.0 TAB ORAL THREE TIMES A DAY Prescr ibed: [facility] 2024 4:11:4 7 PM UT MUNFRANK SANDOVALOD K PHY [id number] on February 18, 2025 4:11:47 PM [facility] ed [id number] 5977 6083 607 Terazosin HCl Oral Capsule 10 MG 10.0 MG ORAL AT BEDTIME Prescr ibed: [facility] 2024 4:11:4 7 PM [facility] MUNISWAMY GABRIEL K PHY [id number] on February 18, 2025 4:11:47 PM [facility] ed [id number] 0970 5044 910 Tylenol Extra Strength Oral Tablet 500 MG 1.0 TAB ORAL EVERY SIX HOURS NEEDED Prescr ibed: [facility] 2024 4:11:4 7 PM UT MUNFRANK SANDOVALOD K PHY [id number] on February 18, 2025 4:11:47 PM [facility] ed [id number] 2753 5703 301 Fludrocorti sone Acetate Oral Tablet 0.1 MG 1.0 TAB ORAL ONCE DAILY Prescr ibed: [facility] 2024 4:11:4 7 PM UT MUNISINSHELLIE SANDOVALOD K PHY [id number] on February 18, 2025 4:11:47 PM [facility] ed [id number] 0170 5031 401 Senna Laxative Oral Tablet 8.6 MG 1.0 TAB ORAL TWICE A DAY Prescr ibed: [facility] 2024 4:11:4 7 PM [facility] MUNISWASHELLIE SANDOVALOD K PHY [id number] on February 18, 2025 4:11:47 PM [facility] Continu ed [id number] 0633 5016 403 Singulair Oral Tablet 10 MG 1.0 TAB ORAL ONCE DAILY Prescr ibed: [facility] 2024 4:11:4 7 PM [facility] MUNISWASHELLIE SANDOVALOD K PHY [id number] on February 18, 2025 4:11:47 PM [facility] Continu ed [id number] 8669 1031 271 Vitamin D3 Maximum Strength Oral Capsule 125 MCG (5000 UT) 1.0 TAB ORAL ONCE DAILY Prescr ibed: [facility] 2024 4:11:4 7 PM UT NATALYA SANDOVALOD K PHY [id number] on February 18, 2025 4:11:47 PM [facility] Continu ed [id number] 6923 1021 230 Gabapentin Oral Capsule 300 MG 300.0 MG ORAL THREE TIMES A DAY Prescr ibed: [facility] 2024 4:11:4 7 PM [facility] MUNISWAMY GABRIEL K PHY [id number] on February 18, 2025 4:11:47 PM [facility] ed [id number] 7664 2000 801 metFORMIN HCl Oral Tablet 500 MG 1.0 TAB ORAL TWICE A DAY Prescr ibed: [facility] 2024 4:11:4 7 PM [facility] MUNISWAMY GABRIEL K PHY [id number] on February 18, 2025 4:11:47 PM [facility] ed [id number] 5550 6083 316 Marlene-Tussin Oral Liquid 100 MG/5ML 100.0 MG ORAL EVERY FOUR HOURS NEEDED Prescr ibed: [facility] 2024 4:11:4 7 PM [facility] MUNISWAMY GABRIEL K PHY [id number] on February 18, 2025 4:11:47 PM [facility] ed [id number] 0131 7002 120 Vascepa Oral Capsule 1 GM 2.0 GM ORAL TWICE A DAY Prescr ibed: [facility] 2024 4:11:4 7 PM [facility] MUNISWASHELLIE SANDOVALOD K PHY [id number] on February 18, 2025 4:11:47 PM [facility] Continu ed [id number] 6699 3019 697 Fluticasone Furoate Ellipta Inhalation Aerosol Powder Breath Activated 50 MCG/ACT 2.0 SPR NASAL ONCE DAILY Prescr ibed: [facility] 2024 4:11:4 7 PM UT MUNISWASHELLIE SANDOVALOD K PHY [id number] on February 18, 2025 4:11:47 PM [facility] Continu ed [id number] 4221 3738 656 Venlafaxine HCl ER Oral Capsule Extended Release 24 Hour 150 MG 150.0 MG ORAL TWICE A DAY Prescr ibed: [facility] 2024 4:11:4 7 PM [facility] MUNISWAMY GABRIEL K PHY [id number] on February 18, 2025 4:11:47 PM [facility] Continu ed [id number] 2571 4464 925 Furosemide Oral Tablet 40 MG 40.0 MG ORAL ONCE DAILY Prescr ibed: [facility] 2024 4:11:4 7 PM [facility] MUNISWAMY GABRIEL K PHY [id number] on February 18, 2025 4:11:47 PM [facility] Continu ed [id number] 9818 1030 152 AZO Urinary Pain Relief Oral Tablet 95 MG 1.0 TAB ORAL THREE TIMES A DAY NEEDED Prescr ibed: [facility] 2024 4:11:4 7 PM [facility] MUNISWAMY GABRIEL K PHY [id number] on February 18, 2025 4:11:47 PM [facility] Continu ed [id number] 4309 6120 230 Linzess Oral Capsule 290 MCG 290.0 MCG ORAL AT BEDTIME Prescr ibed: [facility] 2024 4:11:4 7 PM [facility] MUNISWAMY GABRIEL K PHY [id number] on February 18, 2025 4:11:47 PM [facility] Continu ed [id number] 9175 4053 201 Lisinopril Oral Tablet 5 MG 5.0 MG ORAL ONCE DAILY Prescr ibed: [facility] 2024 4:11:4 7 PM [facility] MUNISWAMY GABRIEL K PHY [id number] on February 18, 2025 4:11:47 PM [facility] Continu ed [id number] 3629 8004 580 Abilify Maintena Intramuscul ar Prefilled Syringe 300 MG 300.0 MG INTRAM USCULA R ONCE EACH MONTH Prescr ibed: [facility] 2024 4:11:4 7 PM [facility] MUNISWAMY GABRIEL K PHY [id number] on February 18, 2025 4:11:47 PM [facility] Continu ed [id number] 2038 7020 101 Ipratropium -Albuterol Inhalation Solution 0.5-2.5 (3) MG/3ML 3.0 ML INHALE D EVERY SIX HOURS NEEDED Prescr ibed: [facility] 2024 4:11:4 7 PM [facility] MUNISWAMY GABRIEL K PHY [id number] on February 18, 2025 4:11:47 PM [facility] Continu ed [id number] 0517 2003 708 Lactulose Oral Solution 10 GM/15ML 30.0 ML ORAL ONCE DAILY NEEDED Prescr ibed: [facility] 7, 2025 4:11:4 7 PM [facility] MUNFRANK Ferrari Y [id number] on February 18, 2025 4:11:47 PM [facility] Continu ed [id number] 6644 3007 968 Albuterol Sulfate HFA Inhalation Aerosol Solution 108 (90 Base) MCG/ACT 2.0 PUF INHALE D EVERY SIX HOURS NEEDED Prescr ibed: [facility] r 2024 4:11:4 7 PM UT MUNISINSHELLIE Ferrari Y [id number] on February 18, 2025 4:11:47 PM [facility] Continu ed [id number] 4926 7016 381 Aspirin 81 Oral Tablet Chewable 81 MG 81.0 MG ORAL ONCE DAILY Prescr ibed: [facility] r 2024 4:11:4 7 PM [facility] Y [id number] on February 18, 2025 4:11:47 PM [facility] INPATIENT MEDICATIONS Status RXNORM [facility] Medication Dose Route Frequency Rat e Quantity Dates Indication Dispense Data Comments Physician Updated By Negar inued [id number] [id number] 704 LACTATED RINGERS SOLN 1000. 0 ML INTRAV ENOUS ONE TIME ONLY (PACU) 25.0 ML/HR Start: [facility] r 2024 1:45:0 0 PM UTC End: [facility] r 2024 4:11:4 7 PM UT DEPA ALIDA [id number] on February 19, 2025 4:25:00 AM [facility] Discont inued [id number] 0040 9117 630 meperidine (DEMEROL) 25 MG/ML SOLN 12.5 MG INTRAV ENOUS NEEDED (PACU) Start: [facility] r 2024 1:45:0 0 PM UTC End: [facility] r 2024 4:11:4 7 PM UTC DEPA ALIDA [id number] on February 19, 2025 4:25:00 AM [facility] Discont inued [id number] 0040 9117 630 meperidine (DEMEROL) 25 MG/ML SOLN 25.0 MG INTRAV ENOUS NEEDED (PACU) Start: [facility] r 2024 1:45:0 0 PM UTC End: [facility] r 2024 4:11:4 7 PM UTC DEPA ALIDA [id number] on February 19, 2025 4:25:00 AM UTC Discont inued 6932 3080 811 fentaNYL (SUBLIMAZE) 50 MCG/ML SOSY 25.0 MCG INTRAV ENOUS EVERY 5 MINUTES NEEDED (PACU) [facility]0 [facility] PM UTC [facility] 4:11:4 7 PM UTC DEPA ALIDA [id number] on February 19, 2025 4:25:00 AM UTC Discont inued [id number] fentaNYL (SUBLIMAZE) 50 MCG/ML SOSY 50.0 MCG INTRAV ENOUS EVERY 5 MINUTES NEEDED (PACU) [facility] 1:45[facility]0 0 PM UTC [facility] 4:11:4 7 PM UTC DEPA ALIDA [id number] on February 19, 2025 4:25:00 AM UTC Discont inued [id number] 9569 9426 401 HYDROmorpho ne (DILAUDID) 0.5 MG/0.5ML SOLN 0.5 MG INTRAV ENOUS EVERY 10 MINUTES NEEDED (PACU) [facility] 1:45:0 0 PM UTC [facility] 4:11:4 7 PM UTC DEPA ALIDA [id number] on February 19, 2025 4:25:00 AM UTC Discont inued [id number] 4363 9128 331 HYDROmorpho ne (DILAUDID) 1 MG/ML SOLN 1.0 MG INTRAV ENOUS EVERY 10 MINUTES NEEDED (PACU) [facility] 1:45:0 0 PM UTC [facility] 4:11:4 7 PM UTC DEPA ALIDA [id number] on February 19, 2025 4:25:00 AM UTC Discont inued [id number] [id number] 250 PERCOCET 5-325 MG TABS 1.0 TAB ORAL ONE TIME ADMINISTRA TION (UNSCHEDUL ED) [facility] 1:45:0 0 PM UTC [facility] 4:11:4 7 PM UTC DEPA ALIDA [id number] on February 19, 2025 4:25:00 AM UTC Discont inued [id number] 1806 5613 000 ondansetron (ZOFRAN) INJ 4 MG/2 ML SOLN 4.0 MG INTRAV ENOUS NEEDED (PACU) Start: [facility] 2024 1:45:0 0 PM UTC End: [facility] 2024 4:11:4 7 PM UTC DEPA ALIDA [id number] on February 19, 2025 4:25:00 AM UTC Discont inued [id number] 0051 7970 201 droperidol (INAPSINE) 2.5 MG/ML SOLN 0.625 MG INTRAV ENOUS NEEDED (PACU) Start: [facility] 2024 1:45:0 0 PM UTC End: [facility] 2024 4:11:4 7 PM UTC DEPA ALIDA [id number] on February 19, 2025 4:25:00 AM UTC Discont inued [id number] 6025 3041 112 midazolam (VERSED) 2 MG/2 ML SOLN 1.0 MG INTRAV ENOUS EVERY FIVE MINUTES NEEDED Start: [facility] 2024 1:45:0 0 PM UTC End: [facility] 2024 4:11:4 7 PM UTC DEPA ALIDA [id number] on February 19, 2025 4:25:00 AM UTC Discont inued [id number] 1465 3041 112 midazolam (VERSED) 2 MG/2 ML SOLN 2.0 MG INTRAV ENOUS NEEDED (PACU) Start: [facility] 2024 1:45:0 0 PM UTC End: [facility] 2024 4:11:4 7 PM UTC DEPA ALIDA [id number] on February 19, 2025 4:25:00 AM UTC Discont inued 731546 7710 1092 825 promethazin e (PHENERGAN) 25 MG/ML SOLN 12.5 MG INTRAV ENOUS NEEDED (PACU) Start: [facility] 2024 1:45:0 0 PM UTC End: [facility] 2024 4:11:4 7 PM UTC DEPA ALIDA [id number] on February 19, 2025 4:25:00 AM UTC Discont inued XXXX [id number] 011 promethazin e (PHENERGAN) 12.5 MG GEL 12.5 MG TOPICA L NEEDED (PACU) Start: [facility] r 2024 1:45:0 0 PM UTC End: [facility] r 2024 4:11:4 7 PM UTC DAYDAY ALIDA [id number] on February 19, 2025 4:25:00 AM UTC Discont inued 136363 3260 1329 009 clindamycin (CLEOCIN) IN D5W 900 MG/50 ML SOLN 900.0 MG INTRAV ENOUS ONE TIME ADMINISTRA TION (UNSCHEDUL ED) 100.0 ML/HR Start: [facility] r 2024 11:29: 00 AM [facility] 2:31:3 7 PM UTC RAE MAO Chirinos [id number] on February 18, 2025 2:31:00 PM UTC Discont inued [id number] 8615 8954 950 clindamycin (CLEOCIN) PREMIX 600 MG/50ML SOLN 600.0 MG INTRAV ENOUS ONE TIME ONLY (SCHEDULED DOSE) Start: [facility] 2024 2:32:0 0 PM UTC End: [facility] r 2024 2:32:0 0 PM UTC MUNISWAMY GABRIEL K INTERFAC ED on February 18, 2025 2:30:00 PM UTC Discont inued 132796 0811 1329 009 clindamycin (CLEOCIN) IN D5W 900 MG/50 ML SOLN 900.0 MG INTRAV ENOUS ONE TIME ONLY (SCHEDULED DOSE) [facility] 2:32:0 0 PM UTC End: [facility] r 2024 2:32:0 0 PM UTC MUNISWAMY GABRIEL K INTERFAC ED on February 18, 2025 2:30:00 PM UTC Discont inued [id number] 3497 9909 332 PACU - fentaNYL (SUBLIMAZE) 100 MCG/2ML SOLN 100.0 MCG INTRAV ENOUS ONE TIME ONLY (SCHEDULED DOSE) Start: [facility] r 2024 2:58:0 0 PM UTC End: [facility] r 2024 2:58:0 0 PM UTC MUNISWAMY GABRIEL K INTERFAC ED on February 18, 2025 2:57:00 PM UTC Discont inued [id number] 7047 5034 542 propofol (DIPRIVAN) 500 MG/50ML EMUL 500.0 MG INTRAV ENOUS ONE TIME ONLY (SCHEDULED DOSE) Start: [facility] 2024 2:58:0 0 PM UTC End: [facility] 2024 2:58:0 0 PM UTC MUNISWAMY GABRIEL K INTERFAC ED on February 18, 2025 2:57:00 PM UTC Discont inued [id number] 5302 8011 704 LACTATED RINGERS SOLN 1000. 0 ML IV CONTIN UOUS ONE TIME ONLY (SCHEDULED DOSE) Start: [facility] 2024 4:56:0 0 PM UTC End: [facility] 2024 4:56:0 0 PM UTC MUNISWAMY GABRIEL K INTERFAC ED on February 18, 2025 4:00:00 AM UT SOCIAL HISTORY SOCIAL HISTORY - Smoking Status SNOMED-CT Social History Element Description Effective Dates Offered Cessation Comment Updated By [id number] Historical Tobacco smoking status Never Smoked [id number] on August 08, 2022 12:34:38 PM UT SOCIAL HISTORY - Gender Sex: Female SOCIAL HISTORY - Status : status i nformation is not available Intention in Next Year: intention information is not available SOCIAL HISTORY - Assessments Code System Description Status Date Value of Assessment Updated By Comment Assessment Information is no t available SOCIAL HISTORY - [place] Affiliation [place] information is not av ailable SOCIAL HISTORY - Legal Sex Legal Sex information is not available SOCIAL HISTORY - Sexual Behavior Sexual Orientation Gender Identity SNOMED-CT Description SNO MED -CT Description Activity Level No of Partners Partner Type UpdatedBy Information is not available SOCIAL HISTORY - Occupation Occupation information is no t available VITAL SIGNS PATIENT VITAL SIGNS This section displays the mo st recent value for each vital sign as of February 20, 2025 2:36:33 PM UT Loinc Code Vital Sign Activity Date Result Updated By 8302-2 Body height February 12, 2025 2:36:09 PM UT 170.18 cm (67.0 in) [id number] on February 12, 2025 2:36:09 [place] [address]-4 Body mass index (BMI) [Ratio] February 12, 2025 2:36:09 PM UT 37.291 kg/m2 3140-1 Body Surface Area Derived From Formula February 12, 2025 2:36:09 PM UT 2.1776 m2 16237-9 Body weight Measured February 12, 2025 2:36:09 PM UT 108.0 kg (238.0 lb) [id number] on February 12, 2025 2:36:09 PM UT PEDIATRIC GROWTH CHART - VITAL SIGNS This section displays Head C ircumference Percentile, Weight for Length Percentile and BMI Percentile Loinc Code Pediatric Measure Age (Months) Result Updat ed By No Pediatric Growth Chart Pe rcentile Information Available. PROCEDURES HEALTH CONCERNS Problems Concern Status Health Concern problem infor mation not available. Smoking Status Status Years Used Consumed packs p er day Health Concern smoking histo ry information not available. Family History Concern Status Health Concern family histor y information not available. ENCOUNTERS ENCOUNTER INFORMATION Reason for Visit PAIN PUMP REPLACEMEN T Admission February 18, 2025 2:08:00 PM UT G [address] [address] Discharge February 18, 2025 10:08:00 PM UT DISCHARGED TO HOME OR SELF CARE ENCOUNTER DIAGNOSES Notes information is not kylie ilable. Code System Diagnosis Onset Date Diagnosis information is not available. ABSTRACT DIAGNOSES Code System Diagnosis Updated By Abatement Date G89.4 ICD10 CHRONIC PAIN SYNDROME [id number] on February 20, 2025 2:35:59 PM UT G89.4 ICD10 CHRONIC PAIN SYNDROME [id number] on February 20, 2025 2:35:59 PM UT I10 ICD10 ESSENTIAL (PRIMA RY) HYPERTENSION [id number] on February 20, 2025 2:35:59 PM UT E78.5 ICD10 HYPERLIPIDEMIA, UNSPECIFIED [id number] on February 20, 2025 2:35:59 PM UT R06.00 ICD10 DYSPNEA, UNSPECIFIED [id number] on February 20, 2025 2:35:59 PM UT K21.9 ICD10 GASTRO-ESOPHAGEA L REFLUX DISEASE WITHOUT ESOPHAGITIS [id number] on February 20, 2025 2:35:59 PM UT E66.01 ICD10 MORBID (SEVERE) OBESITY DUE TO EXCESS CALORIES [id number] on February 20, 2025 2:35:59 PM UT Z68.38 ICD10 BODY MASS INDEX [BMI] 38.0-38.9, ADULT [id number] on February 20, 2025 2:35:59 PM UTC M19.90 ICD10 UNSPECIFIED OSTE OARTHRITIS, UNSPECIFIED SITE [id number] on February 20, 2025 2:35:59 PM UTC G40.909 ICD10 EPILEPSY, UNSPEC IFIED, NOT INTRACTABLE, WITHOUT STATUS EPILEPTICUS [id number] on February 20, 2025 2:35:59 PM UT F99 ICD10 MENTAL DISORDER, NOT OTHERWISE SPECIFIED [id number] on February 20, 2025 2:35:59 PM UTC D64.9 ICD10 ANEMIA, UNSPECIFIED [id number] on February 20, 2025 2:35:59 PM UTC Z90.49 ICD10 ACQUIRED ABSENCE OF OTHER SPECIFIED PARTS OF DIGESTIVE TRACT [id number] on February 20, 2025 2:35:59 PM UTC Z90.710 ICD10 ACQUIRED ABSENCE OF BOTH CERVIX AND UTERUS [id number] on February 20, 2025 2:35:59 PM UTC Z79.82 ICD10 FCI (CURRE NT) USE OF ASPIRIN [id number] on February 20, 2025 2:35:59 PM UTC Z79.899 ICD10 OTHER [facility] (CURRENT) DRUG THERAPY [id number] on February 20, 2025 2:35:59 PM UTC Z88.6 ICD10 ALLERGY STATUS T O ANALGESIC AGENT [id number] on February 20, 2025 2:35:59 PM UTC Z88.2 ICD10 ALLERGY STATUS TO SULFONAMID ES [id number] on February 20, 2025 2:35:59 PM UTC Z88.5 ICD10 ALLERGY STATUS T O NARCOTIC AGENT [id number] on February 20, 2025 2:35:59 PM UTC Z88.8 ICD10 ALLERGY STATUS T O OTHER DRUGS, MEDICAMENTS AND BIOLOGICAL SUBSTANCES [id number] on February 20, 2025 2:35:59 PM UT CARE TEAM Care Service Crew Supervisor Role GABRIEL GUZMAN Surgeon DEFINED NO Primary Care GABRIEL GUZMAN Admitting GABRIEL GUZMAN Referring GABRIEL GUZMAN Primary Attending HOSPITAL DISCHARGE INSTRUCTION DISCHARGE INSTRUCTION Encounter [id number] Admit Date February 18, 2025 2:08 :00 PM UT Discharge Date February 18, 2025 10:0 8:00 PM [facility] PATIENT EDUCATION SUMMARY Patient/Visit Information: Patient Name: JESSICA LOPEZ Diag: Attending Caregiver: NATALYA Ferrari Discharge Instruction Sheets Provided: Anesthesia, [facility] DC Instructions After BEFAST-Stroke Warning Signs Discharge Information Dr. Guzman - Intrathecal Pain Pump Fall Prevention in Hospitals and in the Home [facility] - Medication Management KYNECT- HELP Medication Side Effects Suicide - Managing your Feelings Patient Instructions: Followup Appointments/Instructions: CARE TEAM CARE team assistant Role on Team Location Telecom Status Start Date End Arnaud e Updated By NATALYA MONTANO Surgeon normal February 18, 2025 2:08:00 PM UT February 18, 2025 10:08:00 PM UT [id number] on February 20, 2025 2:36:07 PM UT NO DEFINED PRIMARY C PCP normal February 05, 2025 4:00:25 PM UT February 18, 2025 10:08:00 PM UT [id number] on February 20, 2025 2:36:07 PM UT NATALYA MONTANO Referring normal February 05, 2025 4:00:25 PM [facility] February 18, 2025 10:08:00 PM UT [id number] on February 20, 2025 2:36:07 PM [facility] NATALYA MONTANO Attending normal February 05, 2025 4:00:25 PM [facility] February 18, 2025 10:08:00 PM UT [id number] on February 20, 2025 2:36:07 PM [facility] NATALYA MONTANO Admitting normal February 05, 2025 4:00:25 PM [facility] February 18, 2025 10:08:00 PM UT [id number] on February 20, 2025 2:36:07 PM [facility]
--- OUTSIDE RECORDS SUMMARY | 2025-03-07 13:16 | XMS_ITS | Continuity of Care Document ---
Author Organization [facility] Phone Care Team Providers Care Alternative Dispute Resolution Mediator Name Role Phone GABRIEL HOANG Admitting GABRIEL HOANG Unavailable NO, DEFINED P Primary Care Unavailable GABRIEL HOANG Primary Attending [phone] ALLERGIES AND ADVERSE REACTIONS ALLERGIES AND ADVERSE REACTIONS Code System Allergy Substance Adverse Reaction Date Reaction (Severity) Comment Status Reported By Updated [place] [id number] SNOMED CT Sulfa Antibiotics Rash active Patient [id number] on February 17, 2025 1:47:09 PM [place] 2231 RXNorm Keflex Rash active Patient [id number] on February 17, 2025 1:47:09 PM UTC 4053 RXNorm Erythromycin Drug-induce d nausea and vomiting active Patient [id number] on February 17, 2025 1:47:10 PM UTC Tramadol Adverse reaction to substance itching active Patient [id number] on February 17, 2025 1:47:10 PM UTC 43870 RXNorm Wellbutrin Adverse reaction to substance seizures active Patient [id number] on February 17, 2025 1:47:[place] [address] RXNorm Lipitor Drug-induce d nausea and vomiting active Patient [id number] on February 17, 2025 1:47:10 PM [place] [id number] SNOMED CT NSAIDS Adverse reaction to substance deathly sick active Patient [id number] on February 17, 2025 1:47:11 PM UTC 4493 RXNorm Prozac Adverse reaction to substance anxiety active Patient [id number] on February 17, 2025 1:47:11 PM UTC 23626 RXNorm MOBIC Adverse reaction to substance feel weird active Patient [id number] on February 17, 2025 1:47:11 PM UTC FAMILY HISTORY RELATION: Father Status: [...] RXNORM NDC Medication Dose Route Frequency Dates Dis pense Data Comments Physician Updated By No Discharge Medication Info rmation Available INPATIENT MEDICATIONS Status RXNORM NDC Medication Dose Route Frequency Rat e Quantity Dates Indication Dispense Data Comments Physician Updated By No Inpatient Medication Info rmation Available SOCIAL HISTORY SOCIAL HISTORY - Smoking Status SNOMED-CT Social History Element Description Effective Dates Offered Cessation Comment Updated By [id number] Historical Tobacco smoking status Never Smoked [id number] on August 08, 2022 12:34:38 PM [facility] SOCIAL HISTORY - Gender Sex: Female SOCIAL HISTORY - Status : status i nformation is not available Intention in Next Year: intention information is not available SOCIAL HISTORY - Assessments Code System Description Status Date Value of Assessment Updated By Comment Assessment Information is no t available SOCIAL HISTORY - [place] Affiliation [place] information is not av ailable SOCIAL HISTORY - Legal Sex Legal Sex information is not available SOCIAL HISTORY - Sexual Behavior Sexual Orientation Gender Identity SNOMED-CT Description SNO MED -CT Description Activity Level No of Partners Partner Type UpdatedBy Information is not available SOCIAL HISTORY - Occupation Occupation information is no t available HEALTH CONCERNS Problems Concern Status Health Concern problem infor mation not available. Smoking Status Status Years Used Consumed packs p er day Health Concern smoking histo ry information not available. Family History Concern Status Health Concern family histor y information not available. ENCOUNTERS ENCOUNTER INFORMATION Reason for Visit OV Admission February 26, 2025 6:52:[address] [address] Discharge February 26, 2025 6:52:00 PM [facility] DISCHARGED TO HOME OR SELF CARE ENCOUNTER DIAGNOSES Notes information is not kylie ilable. Code System Diagnosis Onset Date Diagnosis information is not available. 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 OF LUMBAR BACK PAIN OR LOWER EXTREMITY PAIN [id number] on March 07, 2025 6:15:49 PM UTC M17.11 ICD10 UNILATERAL PRIMA RY OSTEOARTHRITIS, RIGHT KNEE [id number] on March 07, 2025 6:15:49 PM UTC M25.562 ICD10 PAIN IN LEFT KNEE [id number] on March 07, 2025 6:15:49 PM UTC M25.511 ICD10 PAIN IN RIGHT SHOULDER [id number] on March 07, 2025 6:15:49 PM UTC R20.2 ICD10 PARESTHESIA OF SKIN [id number] on March 07, 2025 6:15:49 PM UTC Q82.0 ICD10 HEREDITARY LYMPHEDEMA [id number] 8 on March 07, 2025 6:15:49 PM UTC Z87.440 ICD10 PERSONAL HISTORY OF URINARY (TRACT) INFECTIONS [id number] on March 07, 2025 6:15:49 PM UTC Z79.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 [id number] on March 07, 2025 6:15:49 PM UTC Z79.891 ICD10 HALFWAY (CURRE NT) USE OF OPIATE ANALGESIC [id number] on March 07, 2025 6:15:49 PM UTC Z88.6 ICD10 ALLERGY STATUS T O ANALGESIC AGENT [id number] on March 07, 2025 6:15:49 PM UTC Z88.1 ICD10 ALLERGY STATUS T O OTHER ANTIBIOTIC AGENTS [id number] on March 07, 2025 6:15:49 PM UTC Z88.5 ICD10 ALLERGY STATUS T O NARCOTIC AGENT [id number] on March 07, 2025 6:15:49 PM UTC Z88.7 ICD10 ALLERGY STATUS T O SERUM AND VACCINE [id number] on March 07, 2025 6:15:49 PM UTC Z88.8 ICD10 ALLERGY STATUS T O OTHER DRUGS, MEDICAMENTS AND BIOLOGICAL SUBSTANCES [id number] on March 07, 2025 6:15:49 PM [place] CARE TEAM Care Alternative Dispute Resolution Mediator Role GABRIEL HOANG Admitting GABRIEL HOAGN Referring DEFINED NO Primary Care GABRIEL HOANG Primary Attending CARE TEAM CARE fish inspector Role on Team Location Telecom Status Start Date End Arnaud e Updated By NO DEFINED PRIMARY C PCP normal February 26, 2025 4:00:00 AM [place] February 26, 2025 4:00:00 AM UTC [id number] on February 26, 2025 6:52:39 PM [place] NATALYA Ferrari PHY Referring normal February 26, 2025 4:00:00 AM [place] February 26, 2025 4:00:00 AM UTC [id number] on February 26, 2025 6:52:39 PM [place] NATALYA MONTANO Attending normal February 26, 2025 4:00:00 AM [place] February 26, 2025 4:00:00 AM UT [id number] on February 26, 2025 6:52:39 PM [place] NATALYA Ferrari PHY Admitting normal February 26, 2025 4:00:00 AM [place] February 26, 2025 4:00:00 AM UTC [id number] on February 26, 2025 6:52:39 PM UTC
[2025-03-19 08:43] LABS: Microscopic, Urine URINE MICROSCOPIC (MICROSCOPIC)
--- OUTSIDE RECORDS SUMMARY | 2025-03-19 08:46 | XMS_ITS | Patient Health Record ---
Author Organization [facility] Address [address] [facility] [address] [place], [place] [id number] Care Team Providers Care Software Development Advisor Name Role Phone Anny Mario APRN Primary Care Provider Aster Parrish Unavailable [phone] Allergies Allergen (clinical drug ingredient) Drug/Non Drug [...] disorder associated with type II diabetes mellitus (566839038) NIDDM w/neuropathy (250.60) Active confirmed Problem Onychomycosis (220372458) Onychomycosis (110.1) Active confirmed Problem Peripheral vascular disease (077673324) PVD (440.29) Active confirmed Problem Edema (38148827) Edema (782.3) Active confirmed Problem Cellulitis of right lower limb (2818500037523218 4) Cellulitis of foot without toes, right (L03.115) Active confirmed Problem Blister (056538) Blister (T14.8) Active confirm ed Problem Diabetic peripheral neuropathy associated with type 2 diabetes mellitus (6520166239503) Type 2 diabetes mellitus with diabetic neuropathy, without long-term current use of insulin (E11.40) Active confirmed Problem Ulcer of toe of right foot (disorder) (1347027081896229 1) Skin ulcer of toe of right foot, limited to breakdown of skin (L97.511) Active confirmed Problem Ulcer of right foot (disorder) (057618886) Skin ulcer of right foot, limited to breakdown of skin (L97.511) Active confirmed Plan Of Treatment No Information Insurance Providers Payer Name Payer Address Payer Phone Subscriber Number Group Number Insured Name Patient Relationship to Insured Coverage Start Date Coverage End Date [employer] Medicare [address] [place] [address] [id number] Johanny Molina Self - patient is the insured [employer] [address] [place], [place] [id number] [phone] [id number] Johanny Molina Self - patient is the insured Medical (General) History Medical History History ICD Code diabetes hypertension shortness of breath lung disease asthma gastritis Sinus headaches Surgical History Surgery Date(Month/Year) section hysterectomy bladder surgery melanoma excision kidney stones tubal ligation gall bladder D&C
--- OUTSIDE RECORDS SUMMARY | 2025-03-19 08:46 | XMS_ITS | Clinical Summary ---
Author Organization [facility] Address [address] [place] [address] Phone Care Team Providers Care Tibco Developer Name Role Phone Unavailable Primary Care Provider [...] Density Screening 2024 COVID-19 Vaccine (1 - 2024-2 6 season) 2025 Influenza Vaccine (#1) 2025 3, [...]
[2025-03-19 08:55] LABS: Bilirubin,Urine Negative (Negative); Glucose,Urine (UA) Negative (Negative); Ketones,Urine Negative (Negative); Leukocyte Esterase,Urine 1+ (Negative); PH,Urine 8.0 (5.0-8.5); Protein,Urine Negative (Negative); Specific Gravity, Urine 1.015 (1.005-1.030); Urobilinogen,Urine 1.0 EU/dl (0.2)
[2025-03-19 09:21] LABS: Color,Urine Dark Yellow (Yellow)
[2025-03-19 10:13] LABS: Amorphous Sediment,Urine Trace /lpf; Bacteria,Urine 1+ /lpf
== END 2025-03-19 23:59 | disposition home or self-care (01) ==
PROVIDERS: PCP Family Medicine; Visit Provider Family Medicine
DX: N39.0 Urinary tract infection, site not specified (principal)
CPT/HCPCS: 81001; 87086

== ENCOUNTER 2025-03-26 20:01 | Observation (INO) | payer MEDICARE, MEDICAID, SELFPAY ==
[2025-03-26] VITALS (8 sets, daily range): BP systolic 102–132; BP diastolic 51–78; PULSE 74–76; RESP 13–18; TEMP 36.6; O2SAT 95–96; BMI 49.9
--- NOTE | 2025-03-26 20:05 | ECG_ITS ---
APPROVED REPORT Exam: Resting ECG HR:80 bpm ECG Measurements Heart Rate 80 AXES AR 184 P 47 QRSd 107 QRS -15 QT 346 T 63 QTc 381 Conclusion Normal sinus rhythm without acute ST or T wave changes concern for ischemia Electronically signed by : Elida Summers, 03/31/2025 00:28:21
--- NOTE | 2025-03-26 20:06 | ED_ITS ---
<Statement entered by Elida Summers DO - 03/27/25 01:38> I was consulted by the ALEXIS, and we discussed the complexity of problems being addressed. I approve the treatment and management plan for this patient's care in the emergency department, thus performing a substantial portion of the medical decision making. Elida Summers DO Discharge Plan Disposition Patient Disposition: Admitted Condition: Fair Clinical Impressions Clinical Impression: Hypomagnesemia, Drug-induced nausea and vomiting, Atypical chest pain, Recurrent UTI Discharge ED Provider: Elida Summers General Adult HPI <Elida Summers DO - Last Filed: 03/27/25 01:38> General Chief complaint: Nausea/Vomiting/Diarrhea Stated complaint: Chest Pain Time Seen by Provider: 03/26/25 20:05 Related Data Home Medications ?Medication ?Instructions ?Recorded ?Confirmed acetaminophen 500 mg tablet 500 mg PO Q6HP PRN Pain 03/18/25 ferrous sulfate 325 mg (65 mg 325 mg PO TID Supplement 04/17/20 03/18/25 iron) tablet fludrocortisone 0.1 mg tablet 0.1 mg PO DAILY Adrenal disease 04/17/20 03/18/25 omeprazole 20 mg tablet,delayed 20 mg PO DAILY acid re flux 04/17/20 03/18/25 release ondansetron HCl 4 mg tablet 4 mg PO TIDP PRN Nausea 03/18/25 polyethylene glycol 3350 17 gram 17 gm PO DAILY CONSTI PATION 10/12/20 03/18/25 oral powder packet albuterol sulfate 90 mcg/actuation 2 inh inhalation Q6 HP PRN 03/13/21 03/18/25 aerosol inhaler shortness of breath or wheez ing bisacodyl 10 mg rectal suppository 10 mg MO DAILYP PRN Constipation 03/14/21 03/18/25 linaclotide 290 mcg capsule 290 mcg PO HS Irritable flip wel 04/27/22 03/18/25 (Linzess) syndrome aripiprazole 300 mg suspension, 300 mg IM MONTHLY 12/1503/18/25 extended rel. intramuscular syringe (Brandon Mcclellan) cetirizine 10 mg tablet (Zyrtec) 10 mg PO DAILY 03/18/25 azelastine 137 mcg (0.1 %) nasal 1 spray intranasal BI D 04/18/23 03/18/25 spray loperamide 2 mg capsule 2 mg PO Q6H PRN Diarrhea 10/0403/18/25 meclizine 12.5 mg tablet 12.5 mg PO BIDP Dizziness 03/18/25 montelukast 10 mg tablet 10 mg PO HS 04/18/23 5 (Singulair) peg [id number] 1 1 drp ophthalmic (eye) Q6HP PRN 04/18/23 03/18/25 %-0.2 %-0.2 % eye drops dry eye(s) (Artificial Tears ([id number])) divalproex 500 mg tablet,delayed 500 mg PO BID 4 03/18/25 release potassium chloride 20 mEq 20 meq PO DAILY 08/08/2309/06 tablet,extended release aspirin 81 mg tablet,delayed 81 mg PO DAILY 02/16/24 1 05/18/24 release atorvastatin 20 mg tablet (Lipitor) 20 mg PO HS 03/18/25 furosemide 40 mg tablet 40 mg PO DAILY 02/16/2409/06 metoprolol succinate 25 mg 12.5 mg PO HS 02/16/2409/06 tablet,extended release 24 hr (Toprol XL) fluticasone propionate 50 2 spray intranasal DAILY 05/0703/18/25 mcg/actuation nasal spray,suspension (Flonase Allergy Relief) magnesium hydroxide 400 mg/5 mL 2,400 mg PO DAILY PRN 03/26/24 03/18/25 oral suspension (Milk of Magnesia) phenazopyridine 95 mg tablet (Azo 190 mg PO TID PRN UT I symptoms 03/26/24 03/18/25 Urinary Pain Relief) guaifenesin 100 mg/5 mL oral 200 mg PO Q4H PRN 5 03/18/25 liquid (Robafen) cholecalciferol (vitamin D3) 125 125 mcg PO DAILY 05/1603/18/25 mcg (5,000 unit) capsule icosapent ethyl 1 gram capsule 2 g PO BID 06/04/2409/06 (Vascepa) sucralfate 1 gram tablet 1 g PO BID 06/04/24 03/18/25 terazosin 10 mg capsule 10 mg PO HS 06/04/24 venlafaxine 150 mg 150 mg PO DAILY 06/04/2409/06 capsule,extended release 24 hr sennosides 8.6 mg tablet (senna) 17.2 mg PO BID 03/18/25 cranberry fruit 450 mg tablet 900 mg PO DAILY 09/19/24 03/18/25 fenofibrate nanocrystallized 145 145 mg PO DAILY 09/1903/18/25 mg tablet lisinopril 5 mg tablet 5 mg PO DAILY 12/19/2403/18 metformin 500 mg tablet 500 mg PO BID 12/19/2403/18 lactulose 10 gram/15 mL oral 30 ml PO DAILY PRN 03/18/25 solution hydrocodone 5 mg-acetaminophen 325 1 tab PO BID PRN pa in 03/18/25 03/18/25 mg tablet ipratropium 0.5 mg-albuterol 3 mg 3 ml inhalation Q6H PRN 03/18/25 03/18/25 (2.5 mg base)/3 mL nebulization soln Previous Rx's ?Medication ?Instructions ?Recorded bethanechol chloride 25 mg tablet 25 mg PO QID bladder control 30 04/29/22 days #0 tabs fluticasone furoate 100 1 inh inhalation DAILY #60 e a 07/26/23 mcg-vilanterol 25 mcg/dose inhalation powder (Breo Ellipta) magnesium oxide 400 mg PO DAILY #14 tabs gabapentin 300 mg capsule 300 mg PO TID #90 caps 03/01 cefdinir 300 mg capsule 300 mg PO BID #14 caps 03/23 Allergies Allergy/AdvReac Type Severity Reaction Status Date / Time aspirin Allergy Unknown Unknown Verified 03/18/25 11:07 allergy reaction azithromycin Allergy Unknown Unknown Verified 03/18/25 11:07 allergy reaction bupropion (From Wellbutrin Allergy Unknown Unknown Verified 03/18/25 11:07 SR) allergy reaction levofloxacin (From Levaquin) Allergy Unknown Unknown Verified 03/18/25 11:07 allergy reaction erythromycin base AdvReac Unknown Unknown Verified 03/18/25 11:07 allergy reaction tramadol AdvReac Unknown Unknown Verified 03/18/25 11:07 allergy reaction influenza vaccine AdvReac Unknown Unknown Uncoded 01/16/25 11:46 allergy reaction PFSH <Elida Summers, DO - Last Filed: 03/27/25 01:38> [facility] Disclaimer: The information contained in this section may have been updated after the patient was seen, as this information can be updated by other users. Medical History Multiple pulmonary nodules Complex sleep apnea syndrome Improved from previous with a compliance equal or greater than 4 hours of 80%, AHI 4.7 Complex sleep apnea syndrome, nocturnal hypoxemia, obesity/hypoventilation. At risk for cardiovascular events. She cannot place/use her iVAPS unless she gets help from nursing staff. Schizoaffective disorder, unspecified HTN (hypertension) Recurrent UTI Colon cancer screening Cardiac dysrhythmia Noted during the night of most recent BiPAP titration (April 2023) Pure hypercholesterolemia, unspecified Seizure disorder COPD (chronic obstructive pulmonary disease) Bilateral lower extremity edema Diabetic foot Lymphedema Onychomycosis Obesity (BMI 30-39.9) LANCE (obstructive sleep apnea) Sepsis History of MRSA infection of lungs Diabetes type 2, controlled Anxiety Acute hypoxemic respiratory failure Hospital-acquired pneumonia Chronic hypercapnic respiratory failure Dysphagia Elevated left ventricular end-diastolic pressure (LVEDP) CAD in [place] artery Hyperlipidemia Vitamin D deficiency, unspecified Obstructive sleep apnea (adult) (pediatric) Acute pancreatitis without necrosis or infection, unspecified Unspecified fracture of left patella, initial encounter for closed fracture Interstitial cystitis Hx of bipolar disorder Migraine GERD (gastroesophageal reflux disease) Depression Mild persistent asthma Personal history of sarcoidosis CHF (congestive heart failure) Anemia Surgical History Status post foot surgery Status post surgical removal of malignant neoplasm of skin History of sinus surgery History of hysterectomy History of dilation and curettage History of section History of colonoscopy Hx of cholecystectomy History of tonsillectomy Family History Other CHF (congestive heart failure) Social History Smoking Status: Never smoker alcohol intake: never substance use type: denies use current occupational status: unemployed Travel in the last 8 weeks?: None household members: caregiver housing: assisted living facility caffeine: No Have you lived/traveled outside [place] in past 30 days?: No Contact w/someone who lives/traveled outside US past 30 days?: No Exposure to someone with infectious disease in past 14 days?: No Do you have a fever (greater than 100.4 F or 38 C)?: No Have you tested positive for COVID-19?: No Exposed to someone with COVID-19 in past 14 days?: No Do you have a sore throat?: No Do you have a cough?: No Do you have any weakness?: No Do you have any diarrhea?: No Are you experiencing any unusual bleeding?: No Do you have any muscle aches/pain?: No Do you have any abdominal pain?: No Are you experiencing loss of taste or smell?: No Other Medical History Have you received the Flu Vaccine for this season: No Have you received the Pneumonia Vaccine: Yes (2012, 08/19/24) <Pushpa Jerome (ED), JIGSAWYER - Last Filed: 03/26/25 21:59> ROS Obtained: Yes Systems reviewed as appropriate & no additional complaints except as documented Constitutional Constitutional: Reports as per HPI Physical Exam <Elida Summers DO - Last Filed: 03/27/25 01:38> General General appearance: alert and in no apparent distress Head Head exam: atraumatic, normocephalic and normal inspection Eye Eye exam: Present normal appearance, PERRL and EOMI; Absent scleral icterus ENT ENT exam: Present normal exam and normal external ear exam Neck Neck exam: Present normal inspection and full ROM Chest Chest inspection: Present normal inspection and symmetric chest wall rise Respiratory Respiratory exam: Present normal lung sounds bilaterally; Absent respiratory distress or wheezes Cardiovascular Cardiovascular exam: Present regular rate, normal rhythm and normal heart sounds Abdominal Exam Abdominal exam: Present soft and distention; Absent tenderness, guarding or rebound Extremities Exam Extremities exam: Present normal inspection and full ROM Back Exam Back exam: Present normal inspection and full ROM Neurological Exam Neurological exam: Present alert and oriented X3 Psychiatric Psychiatric exam: Present normal affect and normal mood Skin Skin exam: Present warm and dry Medical Decision Making <Elida Summers DO - Last Filed: 03/27/25 01:38> Medical Records Screening: Per USPSTF and CDC recommendations, given the prevalence of disease in our region, it is our hospital?s policy to screen for HIV and viral Hepatitis for all patients aged 18 and over and those with ongoing risk factors. Vital Signs: 03/26/25 20:06 03/26/25 20:48 03/26/25 21:10 Temperature 98 F 98 F Temperature Source Oral Pulse Rate 74 74 Pulse Rate [Right] 76 Respiratory Rate 17 18 Blood Pressure 132/78 Blood Pressure [Right Arm] 116/78 Blood Pressure Mean [Right Arm] 90 02 Sat by Pulse Oximetry 96 95 Oxygen Delivery Method Room Air Room Air Lab Data Lab results reviewed: Yes I reviewed the patient's lab results. Lab Results 03/26/25 20:42: WBC 9.2, RBC 3.82 L, Hgb 12.3, Hct 36.3 L, MCV 95.0, MCH 32.2 H, MCHC 33.9, RDW 12.1, Plt Count 381, MPV 9.5, Neut % (Auto) 53.3, Lymph % (Auto) 33.8, [place] % (Auto) 9.0, Eos % (Auto) 1.6, Baso % (Auto) 0.7, Neut # (Auto) 4.9, Lymph # (Auto) 3.1, [place] # (Auto) 0.8, Eos # (Auto) 0.2, Baso # (Auto) 0.1, S odium 127 L, Potassium 4.5, Chloride 92 L, Carbon Dioxide 28, Anion Gap 11.5, B UN 28 H, Creatinine 1.00, Estimated Creat Clear 50, Estimated GFR 55 L, Est GFR ( Amer) 67, Glucose 107 H, Calcium 10.0, Magnesium 1.5 L, Total Bilirubin 0.5, AST 27, ALT 26, Alkaline Phosphatase 43, Troponin I < 0.01, Total Protein 6.9 D, Albumin 4.3, Globulin 2.6, Albumin/Globulin Ratio 1.7, Lipase 151 03/26/25 22:41: Troponin I < 0.01 03/26/25 23:41: Urine Color Yellow, Urine Appearance Sl cloudy, Urine pH 7.0, Ur Specific [place] 1.010, Urine Protein Negative, Urine Glucose (UA) Negative, Urine Ketones Negative, Urine Blood Trace-i, Urine Nitrate Negative, Urine Bilirubin Negative, Urine Urobilinogen 0.2, Ur Leukocyte Esterase 3+ A, Urine WBC Tntc 03/26/25 20:42 03/26/25 20:42 Orders (Tests/Meds): ED MEDICATIONS Generic Name Dose Route Start Last Admin Trade Name Joe PRN Reason Stop Dose Admin Acetaminophen 650 mg 03/27/25 01:15 Acetaminophen 325mg Tab PO 04/26/25 01:14 Q4HP PRN Fever or Mild Pain (1-3) Enoxaparin Sodium 40 mg 03/27/25 09:00 Enoxaparin 40mg/0.4ml Syringe SUBCUT 04/26/25 08:59 DAILY OLGA Ceftriaxone Sodium 2 gm/ 100 mls @ 200 mls/hr 03/27/25 00:30 03/27/25 00:52 Sodium Chloride IV 04/06/25 00:29 200 mls/hr Q24H OLGA Administration Sodium Chloride 1,000 mls @ 100 mls/hr 03/27/25 01:15 Sod Chlor 0.9% 1000ml Bag IV 04/26/25 01:14 .Q10H OLGA Sodium Chloride 8 ml 03/26/25 20:11 03/26/25 20:59 Sodium Chloride 0.9% 10ml Vial IV 04/25/25 20:10 8 ml NEEDED PRN Administration dilute pepcid Sodium Chloride 10 ml 03/27/25 01:15 Sodium Chloride 0.9% 10ml Flush Syringe IV 04/26/25 01:14 NEEDED PRN Maintain IV Site Discontinued Medications Generic Name Dose Route Start Last Admin Trade Name Joe PRN Reason Stop Dose Admin Famotidine 20 mg 03/26/25 20:11 03/26/25 20:59 Famotidine 20mg/2ml Vial IV 03/26/25 20:12 20 mg ONCE ONE Administration Magnesium Sulfate 2 gm in 50 mls @ 50 mls/hr 03/26/25 21:25 03/26/25 23:16 Magnesium Sulfate 2gm/50ml Premix IV 03/26/25 22:24 Infused ONCE ONE Infusion Morphine Sulfate 4 mg 03/26/25 20:11 03/26/25 20:59 Morphine 4mg/Ml Syringe IV 03/26/25 20:12 4 mg ONCE ONE Administration Ondansetron HCl 4 mg 03/26/25 20:11 03/26/25 20:59 Ondansetron 4mg/2ml Vial IV 03/26/25 20:12 4 mg ONCE ONE Administration ORDERS Category Date Time Status Chest XR -- portable [XR chest portable] Stat Exams 03/26/25 20:12 Completed CBC [Complete Blood Count Auto Diff] Stat Lab 03/26/25 20:42 Completed Comprehensive Metabolic Panel Stat Lab 03/26/25 20:42 Completed Lipase Stat Lab 03/26/25 20:42 Completed Magnesium Stat Lab 03/26/25 20:42 Completed Trop I [Troponin I] Stat Lab 03/26/25 20:42 Completed Troponin I Q3H Lab 03/26/25 22:41 Completed Troponin I Q3H Lab 03/27/25 02:15 Ordered Urinalysis and Microscopic Stat Lab 03/26/25 23:41 Completed Urine Culture Stat Micro 03/26/25 23:41 Received Medical Decision Narrative: patient is a 65-year-old female presenting to the emergency department for evaluation of spasm that started in the left side of her stomach then went to her chest and then went to her back. She says she has these all the time but she does not know the cause. She also tells me that she is on antibiotics for UTI. She was first on Macrobid but she is now on a new end and she has been on it for about 5 days. She says that this spasm comes and goes but is bad and excruciating when it happens. She says now she is just nauseous. Differential diagnosis includes ACS, pneumonia, viral illness, gastroenteritis, among others. Workup will be conducted with hematologic labs, specific imaging, provocative tests. Initial inventions include crystalloid bolus, analgesics, antibiotics. Elida Summers, DO I assumed care of the patient at 2200. We are pending patient second troponin as well as her urine. Patient second troponin was unremarkable. Patient continued to have nausea but had no vomiting. After further workup, patient was previously on Macrobid patient was recently changed to cefdinir. Patient's urine was grossly infected with too numerous to count white blood cells and this is in comparison to patient's most recent UA on the fifth that only showed 3-5 white blood cells. Patient's most recent urine culture did show susceptibility to Rocephin and cefepime. Patient was ordered Rocephin and given my concern for failure of outpatient treatment, patient was ultimately admitted to the hospitalist for UTI. <Pushpa Jerome (ED), JIGSAWYER - Last Filed: 03/26/25 21:59> [place] Inquiry Pt receiving controlled substance: No [place] was queried for this patient: No Vital Signs: 03/26/25 20:06 03/26/25 20:48 03/26/25 21:10 Temperature 98 F 98 F Temperature Source Oral Pulse Rate 74 74 Pulse Rate [Right] 76 Respiratory Rate 17 18 Blood Pressure 132/78 Blood Pressure [Right Arm] 116/78 Blood Pressure Mean [Right Arm] 90 02 Sat by Pulse Oximetry 96 95 Oxygen Delivery Method Room Air Room Air Lab Data Lab Results 03/26/25 20:42: WBC 9.2, RBC 3.82 L, Hgb 12.3, Hct 36.3 L, MCV 95.0, MCH 32.2 H, MCHC 33.9, RDW 12.1, Plt Count 381, MPV 9.5, Neut % (Auto) 53.3, Lymph % (Auto) 33.8, [place] % (Auto) 9.0, Eos % (Auto) 1.6, Baso % (Auto) 0.7, Neut # (Auto) 4.9, Lymph # (Auto) 3.1, [place] # (Auto) 0.8, Eos # (Auto) 0.2, Baso # (Auto) 0.1, S odium 127 L, Potassium 4.5, Chloride 92 L, Carbon Dioxide 28, Anion Gap 11.5, B UN 28 H, Creatinine 1.00, Estimated Creat Clear 50, Estimated GFR 55 L, Est GFR ( Amer) 67, Glucose 107 H, Calcium 10.0, Magnesium 1.5 L, Total Bilirubin 0.5, AST 27, ALT 26, Alkaline Phosphatase 43, Troponin I < 0.01, Total Protein 6.9 D, Albumin 4.3, Globulin 2.6, Albumin/Globulin Ratio 1.7, Lipase 151 03/26/25 22:41: Troponin I < 0.01 03/26/25 23:41: Urine Color Yellow, Urine Appearance Sl cloudy, Urine pH 7.0, Ur Specific [place] 1.010, Urine Protein Negative, Urine Glucose (UA) Negative, Urine Ketones Negative, Urine Blood Trace-i, Urine Nitrate Negative, Urine Bilirubin Negative, Urine Urobilinogen 0.2, Ur Leukocyte Esterase 3+ A, Urine WBC Tntc Orders (Tests/Meds): ED MEDICATIONS Generic Name Dose Route Start Last Admin Trade Name Joe PRN Reason Stop Dose Admin Acetaminophen 650 mg 03/27/25 01:15 Acetaminophen 325mg Tab PO 04/26/25 01:14 Q4HP PRN Fever or Mild Pain (1-3) Enoxaparin Sodium 40 mg 03/27/25 09:00 Enoxaparin 40mg/0.4ml Syringe SUBCUT 04/26/25 08:59 DAILY OLGA Ceftriaxone Sodium 2 gm/ 100 mls @ 200 mls/hr 03/27/25 00:30 03/27/25 00:52 Sodium Chloride IV 04/06/25 00:29 200 mls/hr Q24H OLGA Administration Sodium Chloride 1,000 mls @ 100 mls/hr 03/27/25 01:15 Sod Chlor 0.9% 1000ml Bag IV 04/26/25 01:14 .Q10H OLGA Sodium Chloride 8 ml 03/26/25 20:11 03/26/25 20:59 Sodium Chloride 0.9% 10ml Vial IV 04/25/25 20:10 8 ml NEEDED PRN Administration dilute pepcid Sodium Chloride 10 ml 03/27/25 01:15 Sodium Chloride 0.9% 10ml Flush Syringe IV 04/26/25 01:14 NEEDED PRN Maintain IV Site Discontinued Medications Generic Name Dose Route Start Last Admin Trade Name Joe PRN Reason Stop Dose Admin Famotidine 20 mg 03/26/25 20:11 03/26/25 20:59 Famotidine 20mg/2ml Vial IV 03/26/25 20:12 20 mg ONCE ONE Administration Magnesium Sulfate 2 gm in 50 mls @ 50 mls/hr 03/26/25 21:25 03/26/25 23:16 Magnesium Sulfate 2gm/50ml Premix IV 03/26/25 22:24 Infused ONCE ONE Infusion Morphine Sulfate 4 mg 03/26/25 20:11 03/26/25 20:59 Morphine 4mg/Ml Syringe IV 03/26/25 20:12 4 mg ONCE ONE Administration Ondansetron HCl 4 mg 03/26/25 20:11 03/26/25 20:59 Ondansetron 4mg/2ml Vial IV 03/26/25 20:12 4 mg ONCE ONE Administration ORDERS Category Date Time Status Chest XR -- portable [XR chest portable] Stat Exams 03/26/25 20:12 Completed CBC [Complete Blood Count Auto Diff] Stat Lab 03/26/25 20:42 Completed Comprehensive Metabolic Panel Stat Lab 03/26/25 20:42 Completed Lipase Stat Lab 03/26/25 20:42 Completed Magnesium Stat Lab 03/26/25 20:42 Completed Trop I [Troponin I] Stat Lab 03/26/25 20:42 Completed Troponin I Q3H Lab 03/26/25 22:41 Completed Troponin I Q3H Lab 03/27/25 02:15 Ordered Urinalysis and Microscopic Stat Lab 03/26/25 23:41 Completed Urine Culture Stat Micro 03/26/25 23:41 Received Medical Decision Narrative: patient is a 65-year-old female presenting to the emergency department for evaluation of spasm that started in the left side of her stomach then went to her chest and then went to her back. She says she has these all the time but she does not know the cause. She also tells me that she is on antibiotics for UTI. She was first on Macrobid but she is now on a new end and she has been on it for about 5 days. She says that this spasm comes and goes but is bad and excruciating when it happens. She says now she is just nauseous. Differential diagnosis includes ACS, pneumonia, viral illness, gastroenteritis, among others. Workup will be conducted with hematologic labs, specific imaging, provocative tests. Initial inventions include crystalloid bolus, analgesics, antibiotics. Critical Care <Pushpa Jerome (ED), JIGSAWYER - Last Filed: 03/26/25 21:59> Critical Care Time Critical Care Time: No
--- NOTE | 2025-03-26 20:12 | XR_ITS ---
PROCEDURE INFORMATION: Exam: XR Chest Exam date and time: 03/26/2025 8:34 PM Age: 65 years old Clinical indication: Shortness of breath; Additional info: Short of breath TECHNIQUE: Imaging protocol: Radiologic exam of the chest. Views: 1 view. COMPARISON: CR XR CHEST PORTABLE 02/16/2024 9:01 AM FINDINGS: Lungs: Low lung volumes. Bibasilar opacities partially silhouette the diaphragm are favored to represent combination of atelectasis/pleural effusion/consolidation. Pleural spaces: See Lungs finding. Heart/Mediastinum: Unremarkable. No cardiomegaly. Bones/joints: Unremarkable. IMPRESSION: Bibasilar opacities partially silhouette the diaphragm are favored to represent combination of atelectasis/pleural effusion/consolidation.
--- OUTSIDE RECORDS SUMMARY | 2025-03-26 20:16 | XMS_ITS | Data Portability ---
Author Organization [facility] [place] & MIGUEL Martinez ADMIN Address [address] [place] [address] Assessment Encounter Date Assessment Date Assessment LastModified by Organization Details LastModified Time 08/21/2023 08/21/2023 Ms. Molina has a history [...] __ __ __ __ __ __ ADAM: [id number] I have reviewed patient's ADAM report prior to prescribing Schedule II, III, and IV medications that require review by law. [email or web address] Not available 08/22/2023 15:51:14 05/06/2024 05/06/2024 Ms. Molina has a history of lumbar degenerative disc disease, congenital elephantiasis, and right knee osteoarthritis presented in our clinic for chronic pain management. The patient is S/P intrathecal pain pump implant. The patient has a history of recurrent UTI. [email or web address] Not available 05/06/2024 18:19:17 09/16/2024 09/16/2024 Ms. Molina has a history of lumbar degenerative disc disease, congenital elephantiasis, and right knee osteoarthritis presented in our clinic for chronic pain management. The patient is S/P intrathecal pain pump implant. The patient has a history of recurrent UTI. - pump refill [email or web address] Not available 09/17/2024 16:18:01 01/15/2025 01/15/2025 Ms. Molina has a history of lumbar degenerative disc disease, congenital elephantiasis, and right knee osteoarthritis presented in our clinic for chronic pain management. The patient is S/P intrathecal pain pump implant. The patient has a history of recurrent UTI. - Pain pump refill [email or web address] Not available 01/16/2025 17:44:50 02/26/2025 02/26/2025 Ms. Molina has a history of lumbar degenerative disc disease, congenital elephantiasis, and right knee osteoarthritis presented in our clinic for chronic pain management. The patient is S/P intrathecal pain pump replacement on 02/18/2025. The patient has a history of recurrent UTI. ASSESSMENT: The patient is 1 week S/P intrathecal pain pump replacement on 02/18/2025. The patient reports experiencing significant improvement in pain and function. PLAN: - Chronic pain syndrome: The patient is S/P intrathecal pain pump replacement on 02/18/2025. The midline and gluteal incision sites are well-approximated with sutures, healing well without signs of infection. The patient was placed in a standing position with the back slightly arched and relaxed. The tape was removed followed by suture removal (all sutures were removed). The patient tolerated the procedure well without keith-procedural complications or bleeding. The patient denies post-op complications or signs of infection. I addressed all questions/concern s regarding post-op care/restrictions . The goal is to optimize pump therapy. I will follow up next pump refill. [email or web address] Not available 02/28/2025 07:27:42 Plan of Treatment Reminders Order Date Submit Date Provider Last Modified By Organization Details Last Modified Time Details Appointments OV EST 15 2025 10:15A M Nicholas Guzman MD Not available Not available Not available Lab None recorded . Referral None recorded . Procedures intrathe georgina pump refill (PROC) - REFILL WITH MORPHINE 3 MG/ML 2024 025 [email or web address] Guzman MD, [address], [address], [place], [address], 01/15/2025 13:13:11 intrathe georgina pump refill (PROC) 2024 025 [email or web address] Nicholas Guzman MD, [address], [address], [place], [address], 09/25/2024 11:50:01 subacrom ial injectio n (PROC) - 36815, 50518 Right subacrom ial bursa 2024 025 Nicholas Guzman MD, [address], [address], [place], [address], 10/08/2024 16:15:31 intrathe georgina pump refill (PROC) - refill with morphine 3 mg/mL 2023 024 [email or web address] Not available 07/04/2024 15:48:35 Surgeries None recorded . Imaging None recorded . Medication Orders None recorded . Patient TargetsNo targets recorded. Patient Instructions Encounter Date Encounter Id Patient Instructions Last Modified By Organization Details Last Modified Time 05/06/2024 [id number] I have discussed in great detail our [...] __ __ __ __ __ __ ADAM: [id number] I have reviewed patient's ADAM report prior to prescribing Schedule II, III, and IV medications that require review by law. Not available 05/06/2024 18:18:23 09/16/2024 [id number] I have discussed in great detail our [...] IV medications that require review by law. [email or web address] Not available 09/17/2024 16:17:00 01/15/2025 [id number] I have discussed in great detail our [...] IV medications that require review by law. [email or web address] Not available 01/10/2025 13:25:31 02/26/[id number] I have discussed in great detail our [...] IV medications that require review by law. [email or web address] Not available 02/26/2025 07:53:12 Reason for Referral None Reported. Results Created Date Observation Date Name Description Value Unit Range Abnormal Flag Note LastModifiedBy Organization Detail LastModifiedTime 02/19/20 25 02/20/2025 PATHO LOGY SPECI MEN pathology specimen SEE REPORT SEE ATTAC HED REPOR T Not Available [facility] [address] [place] [address] Rd, [place], [address], 02/20/2025 02:16:29 02/13/2001/30/2025 elect deanna ty am, krysta ne ECG, 12 leads min No observ ation record ed. [email or web address] [facility] ([employer] [facility]) [address], [place], [address], 02/18/2025 08:06:29 Result Notes None recorded. Problems Name Problem SNOMED Code Status Onset Date Resolution Date Notes Provider Name and Address Organization Details Recorded Time Symbolic dysfunction 547008309 Active 2022 Angi Lantigua null, [place] - [facility] - [place] & [place] 3 11:21:45 Type 2 diabetes mellitus 44985055 Active 2022 Angi Lantigua [place], [place] [facility] [place] & [place] 3 11:21:58 Vitamin D deficiency 24296374 Active 2022 Angi Lantigua [place], [place] [facility] [place] 3 11:22:20 Hypercholes terolemia 51271852 Active 2022 Angi Lantigua [place] [facility] [place] 3 11:22:36 Hypokalemia 96696405 Active 2022 Angi Lantig[place] [facility] [place] 3 11:22:42 Major depressive disorder 754672204 Active 2022 Angi Lantigua [place], [place] [facility] [place] & [place] 3 11:22:49 Behavioral and emotional disorder with onset in childhood 834554937 Active 2022 Angi Lantigua [place] [facility] [place] 3 11:23:14 Neuropathy 292930267 Active 2022 Angi Lantig[place] [facility] [place] 3 11:23:29 Lymphedema 074446823 Active 2022 Angi Lantig[place] [facility] [place] & [place] 3 11:23:40 Gastroesoph ageal reflux disease 183870700 Active 2022 Angi Lantig[place] [facility] [place] 3 11:23:49 Constipatio n 09426118 Active 2022 Angi Lantig[place] [facility] [place] 3 11:23:54 Dysphagia 29066805 Active 2022 Angi L[place]ig[place] [facility] [place] 3 11:24:23 Seizure 92023012 Active 2022 Angi Lantig[place] [facility] [place] 3 11:24:48 Morbid obesity 067445295 Active 2022 Angi L[place] [facility] [place] & [place] 3 11:24:59 Injury of head 13819724 Active 2022 Angi L[place]ig[place] [facility] [place] 3 11:25:20 Pain of bilateral knee joints 6050201657726 04 Active 2022 Meggandaniel Swain [place] [facility] [place] & [place] 3 12:24:31 Myofascial pain 957352067 Active 2022 Meggan Sw[place] [facility] [place] & [place] 3 12:24:32 Osteoarthri tis of left knee joint 8366714935486 09 Active 2022 Meggan Sw[place] [facility] [place] & [place] 3 12:24:41 Osteoarthri tis of right knee joint 1184278761593 00 Active 2022 Meggan Sw[place] [facility] [place] 3 12:53:37 Paresthesia of upper limb 10921580 Active 2022 Meggan Sw[place] [facility] [place] 3 15:51:15 Pain in cervical spine 223064704 Active 2022 Meggan rolon[place] [facility] [place] 3 15:51:16 Degeneratio n of lumbar interverteb ral disc 71124249 Active 2023 Meggan Swain [place] [facility] [place] 4 18:18:48 Chronic pain syndrome 994234697 Active 2023 Meggan Swain [place] [facility] [place] 4 18:18:53 Pain of right shoulder joint 5767832457102 9100 Active 2024 Angie Munoz [place] [facility] [place] 5 07:27:47 Problem Notes None recorded. Procedures Surgical History Date Name Laterality Status Provider Name and Address Organization Details Recorded Time 01/16/20 25 Intrathecal Drug (ITD) Pump Refill completed Gloria [place] [facility] [place] 01/15/2025 13:09:39 01/16/20 25 PUMP CHANGES completed Gloria Mcdowell [place] [facility] [place] & [place] 01/15/2025 13:09:00 09/17/19 25 Intrathecal Drug (ITD) Pump Refill completed Gloria Mcdowell [place] - [facility] [place] & [place] 09/16/2024 14:08:48 09/17/19 25 PUMP CHANGES completed Gloria [place] - [facility] - [place] & [place] 09/16/2024 14:08:37 09/10/19 25 Intrathecal Drug (ITD) Pump Refill cancelled Selene [place] - [facility] - [place] & [place] 09/05/2024 11:22:07 09/10/19 25 PUMP CHANGES cancelled Selene Elliott [place] - [facility] [place] & [place] 09/05/2024 11:22:07 05/06/20 24 Intrathecal Drug (ITD) Pump Refill completed Gloria Mcdowell [place] - [facility] [place] & [place] 05/06/2024 16:51:22 05/06/20 24 PUMP CHANGES completed Meggan Swain [place] [facility] [place] & [place] 05/06/2024 18:18:02 01/25/20 23 PUMP CHANGES completed Vivi [place] [facility] [place] & [place] 01/24/2023 13:50:17 11/04/19 23 PUMP CHANGES completed [facility] - [facility] - [place] & [place] 11/03/2022 13:20:28 10/04/19 23 PUMP CHANGES completed ALETHEA GRULLON [address] , [place], [address], [place] [facility] [place] 10/04/2022 11:54:22 09/21/19 23 PUMP CHANGES completed Vivi Sarit[place]thington [facility] - [facility] - [place] & [place] 09/21/2022 08:03:23 07/12/19 23 PUMP CHANGES completed Meggan HOW[place] - [facility] - [place] & [place] 07/12/2022 12:59:56 Imaging Results None recorded. Procedure Notes None recorded. Medical Equipment None Reported. Allergies Allergen ID Allergen Name Allergen Category Reaction Reaction Severity Criticality Documentation Date Start Date Code Code System Note Provider Name and Address Organization Details Recorded Time 34665 tramadol medicatio n Not available Not available Not available 05/19/2022 89369 RxNorm Angi rolon, [place] - [facility] & [place] 3 11:03:13 59770 Wellbutri n medicatio n Not available Not available Not available 05/19/2022 14863 RxNorm ANITA Gonzalez - [facility] & [place] 3 11:03:20 50840 influenza virus vaccine, specific Not available Not available Not available Not available 05/19/2022 Angi rolon, [facility] - [facility] & [place] 3 11:03:38 14207 aspirin medicatio n Not available Not available Not available 05/19/2022 1191 RxNorm Angi rolon, [place] - [facility] - [place] & [place] 3 11:03:45 86875 azithromy ammon medicatio n Not available Not available Not available 05/19/2022 04099 RxNorm ANITA Gonzalez - [facility] - [place] & [place] 3 11:03:51 57941 Cephalosp brant (substanc e) medicatio n Not available Not available Not available 05/19/2022 42668 7003 SNOMED Angi rolon, ANITA - [facility] & [place] 3 11:03:58 Medications Name Sig Start Date [...] azelastine 137 mcg (0.1 %) nasal spray [place] 2 sprays twice a day by intranasal [...] % 91 % 60 /min 104/71 mm[Hg] [facility] & [place] 4 13:49:48 Date Recorded Body temperature Oxygen saturation Oxygen saturation in Arterial blood by Pulse oximetry Heart rate Systolic And Diastolic Provider Name and Address Organization Details Last Updated DateTime 5 96.9 [degF] 98 % 98 % 81 /min 120/73 mm[Hg] Andria Oliver [facility] & [place] 5 08:55:54 Date Recorded Body temperature Oxygen saturation Oxygen saturation in Arterial blood by Pulse oximetry Heart rate Systolic And Diastolic Provider Name and Address Organization Details Last Updated DateTime 5 97.5 [degF] 92 % 92 % 68 /min 109/55 mm[Hg] [facility] & [place] 5 09:59:17 Date Recorded Body temperature Oxygen saturation Oxygen saturation in Arterial blood by Pulse oximetry Heart rate Systolic And Diastolic Provider Name and Address Organization Details Last Updated DateTime 5 97.8 [degF] 97 % 97 % 73 /min 145/60 mm[Hg] [facility] & [place] 5 09:39:57 Date Recorded Body temperature Oxygen saturation Oxygen saturation in Arterial blood by Pulse oximetry Heart rate Systolic And Diastolic Provider Name and Address Organization Details Last Updated DateTime 5 97.5 [degF] 98 % 98 % 61 /min 128/61 mm[Hg] [facility] & [place] 5 15:06:59 Date Recorded Body temperature Oxygen saturation Oxygen saturation in Arterial blood by Pulse oximetry Heart rate Systolic And Diastolic Provider Name and Address Organization Details Last Updated DateTime 4 98.3 [degF] 92 % 92 % 79 /min 119/69 mm[Hg] Andria Oliver [place] - [facility] & [place] 4 13:43:26 Social History None recorded. Functional Status None recorded. Mental Status None recorded. Family History Nothing Reported. Medical History No medical history recorded. Gynecological HistoryNo gynecological history recorded. Obstetrics History GPAL:G 0 P 0 0 0 0 Past Encounters Encounter ID Performer Location Encounter Start Date Encounter Closed Date Diagnosis/Indication Diagnosis SNOMED-CT Code Diagnosis ICD10 Code Diagnosis IMO Codes Diagnosis Note [id number] Nandini Dang NP [facility] [address] [facility] [address] [place] [address] 05/19/2022 10:29:45 05/19/2022 11:53:43 History of pancreatitis 6511451131 9107 Z87.19 - will recheck labs today- advised alf also obtain an order and check her urine for a UTI [id number] Nicholas Guzman MD [facility] [address] [facility] [place] [address] 07/12/2022 09:50:24 07/12/2022 11:14:21 Osteoarthritis of right knee joint 5044661802 06528 M17.11 Myofascial pain 39022696 9 M79.10 Pain of bi lateral knee joints 3377720947 29894 M25.561 M25.562 Osteoarthr itis of left knee joint 4645052929 90850 M17.12 [id number] Nicholas Guzman MD [facility] [address] [facility] [place] [address] 09/20/2022 09:29:32 09/20/2022 11:12:41 Osteoarthritis of right knee joint 1309894868 95694 M17.11 Myofascial pain 42361049 9 M79.10 Pain of bi lateral knee joints 9856768821 39023 M25.561 M25.562 Osteoarthr itis of left knee joint 8241782736 52511 M17.12 [id number] Nicholas Guzman MD [facility] [address] [address] 10/03/2022 09:41:12 10/03/2022 11:02:04 Osteoarthritis of right knee joint 9150686373 73693 M17.11 Myofascial pain 54212504 9 M79.10 Pain of bi lateral knee joints 0811254728 12018 M25.561 M25.562 Osteoarthr itis of left knee joint 6727933944 87789 M17.12 Pain in ce rvical spine 395911816 M54.2 Paresthesi a of upper limb 81436270 R20.2 [id number] Nicholas Guzman MD [facility] [address] [address] 11/03/2022 11:11:01 11/03/2022 11:32:16 Osteoarthritis of right knee joint 9020447342 65249 M17.11 Myofascial pain 06630021 9 M79.10 Pain of bi lateral knee joints 8021251666 21245 M25.561 M25.562 Osteoarthr itis of left knee joint 7725823913 87543 M17.12 Pain in ce rvical spine 838171973 M54.2 Paresthesi a of upper limb 47246573 R20.2 [id number] Nicholas Guzman MD [facility] [address] [facility] [address] [place] [address] 12/14/2022 11:08:42 12/14/2022 12:20:50 Osteoarthritis of right knee joint 8749458033 93017 M17.11 Myofascial pain 92599811 9 M79.10 Pain of bi lateral knee joints 1209765062 17894 M25.561 M25.562 Osteoarthr itis of left knee joint 7939438580 09970 M17.12 Pain in ce rvical spine 218356390 M54.2 Paresthesi a of upper limb 23451900 R20.2 [id number] Nicholas Guzman MD [facility] [place] [facility] [address] [facility] [address] [place] [address] 01/24/2023 13:07:36 01/24/2023 14:13:51 Osteoarthritis of right knee joint 1091040456 67169 M17.11 Myofascial pain 13790771 9 M79.10 Pain of bi lateral knee joints 7925581685 52303 M25.561 M25.562 Osteoarthr itis of left knee joint 5111582423 76590 M17.12 Pain in ce rvical spine 333962882 M54.2 Paresthesi a of upper limb 49082308 R20.2 [id number] Nicholas Guzman MD [facility] [address] [facility] [address] [place] [address] 08/21/2023 13:27:34 08/21/2023 14:09:53 Osteoarthritis of right knee joint 6087058391 03347 M17.11 Myofascial pain 30224263 9 M79.10 Pain of bi lateral knee joints 4554923851 55513 M25.561 M25.562 Osteoarthr itis of left knee joint 3541690800 96497 M17.12 Pain in ce rvical spine 485301367 M54.2 Paresthesi a of upper limb 05794729 R20.2 [id number] Nicholas Guzman MD [facility] [address] [place] [address] 05/06/2024 13:07:48 05/06/2024 14:06:48 Chronic pain syndrome 723508589 G89.4 - It appears that ITPP therapy is effective and the patient is happy with her current dosing.- I will not make any changes to the pump today. Pump refill was conducted today as scheduled. - I will follow up for next pump refill. Pain of bi lateral knee joints 9564559252 39306 M25.561 M25.562 Paresthesi a of upper limb 82924710 R20.2 Degenerati on of lumbar intervertebral disc 04207963 M51.896 [id number] Nicholas Guzman MD [facility] [address] [place] [address] 09/16/2024 09:31:00 09/16/2024 11:05:15 Chronic pain syndrome 745749955 G89.4 - It appears that ITPP therapy is effective and the patient is happy with her current dosing.- I will not make any changes to the pump today. Pump refill was conducted today as scheduled. - I will follow up for next pump refill. Degenerati on of lumbar intervertebral disc 75844410 M51.369 Pain of bi lateral knee joints 0162794779 22147 M25.561 M25.562 Paresthesi a of upper limb 23519877 R20.2 Pain of ri ght shoulder joint 6710514499 8371491 M25.511 385244 - The patient has right shoulder pain [...] follow up in 2 weeks post injection. [id number] Nicholas Guzman MD [facility] [address] [facility] [address] [place] [address] 01/15/2025 09:06:57 01/15/2025 10:00:32 Chronic pain syndrome 591828938 G89.4 - It appears that ITPP therapy is effective and the patient is happy with her current dosing.- I will not make any changes to the pump today. Pump refill was conducted today as scheduled. - Pump PETEY is 02/2025. We will plan for replacemen t surgery.- I will follow up for next pump refill. Degenerati on of lumbar intervertebral disc 66176534 M51.369 Pain of bi lateral knee joints 7721635415 43208 M25.561 M25.562 Paresthesi a of upper limb 66103844 R20.2 Pain of ri ght shoulder joint 4628574131 9671092 M25.511 [id number] Nicholas Guzman MD [facility] [address] [place] [address] 02/26/2025 14:52:08 02/26/2025 16:09:26 Chronic pain syndrome 428631828 G89.4 Degenerati on of lumbar intervertebral disc 67579870 M51.369 Pain of bi lateral knee joints 2912905870 76022 M25.561 M25.562 Paresthesi a of upper limb 65896860 R20.2 Pain of ri ght shoulder joint 4719742979 8146533 M25.511 [id number] Health Concerns Section Related Observation LastModified by Organization Detai ls LastModified Time None Recorded Concern Status LastModified by Organization Details LastModified Time None Recorded Advance Directives Directive None Recorded Payers Insurance Date Sequence Insurance Name Policy Number Policy Stoner Covered Member ID Stoner Member ID Guarantor Name 02/17/2025 1 [place] Johanny Molina [id number] Johanny Molina 05/06/2024 2 [place] [id number] [id number] Johanny Molnia 05/06/2024 1 [place] H[place] [id number] Johanny Molina [id number] Johanny Molina 05/06/2024 3 [employer] [place]AC[place] - HMO) Johanny Molina [id number] Johanny Molina 02/17/2025 2 MEDICAID-[facility] - FFS/TRADITIONA L Johanny Molina [id number] Johanny Molina Notes Date Note Type Note Provider Name and Address Organization Details Recorded Time 4 text/html ROS as noted in the [...] pastInterventional Tx: deniesImaging/Studies: none Nicholas Guzman MD [address] [facility], [place], [address], [facility] - [facility] & [place] 08/22/2023 15:51:47 4 text/html ROS as noted [...] Tx: deniesImaging/Studies: none Nicholas Guzman MD [address] [facility], [place], [address], [facility] - [place] - [place] & [place] 05/10/2024 10:04:10 5 text/html ROS as noted [...] Therapy: completed in pastInterventional Tx: deniesImaging/Studies: none MD [address], [place], [address], [facility] - NT [facility] & [place] 09/20/2024 12:17:59 5 text/html ROS as noted [...] today is a 7/10. Nicholas Guzman MD [address], [place], [address], [facility] & [place] 01/17/2025 08:22:51 5 text/html ROS as noted in the HPI Ms. Molina has a history of lumbar degenerative disc disease, congenital elephantiasis, and right knee osteoarthritis presented in our clinic for chronic pain management. The patient is S/P intrathecal pain pump replacement on 02/18/2025. The patient has a history of recurrent UTI. The patient presents to the clinic today to follow up post-surgery. The patient is 1 week S/P intrathecal pain pump replacement on 02/18/2025, which has been successful thus far. The patient reports experiencing significant improvement in pain and function. The patient denies post-op complications or signs of infection. The patient is asking questions about post-op care/restrictions. The patient reports that she is happy with ITPP therapy and her pain is well-controlled at this time. Patient's pain level today is 5/10. MD [address], [place], [address], [facility] & [place] 02/28/2025 11:38:54 OBGyn Episode No OBEpisode recorded.
--- OUTSIDE RECORDS SUMMARY | 2025-03-26 20:16 | XMS_ITS | Patient Health Record ---
Author Organization [facility] Address [address] [facility] [address] [place], [place] [address] Care Team Providers Care Stogie Packer Name Role Phone Anny Mario APRN Primary Care Provider Aster Parrish Unavailable [phone] Allergies Allergen (clinical drug ingredient) Drug/Non Drug [...] disorder associated with type II diabetes mellitus (944862327) NIDDM w/neuropathy (250.60) Active confirmed Problem Onychomycosis (097154701) Onychomycosis (110.1) Active confirmed Problem Peripheral vascular disease (582562727) PVD (440.29) Active confirmed Problem Edema (79997842) Edema (782.3) Active confirmed Problem Cellulitis of right lower limb (9283497837808240 4) Cellulitis of foot without toes, right (L03.115) Active confirmed Problem Blister (945972) Blister (T14.8) Active confirm ed Problem Diabetic peripheral neuropathy associated with type 2 diabetes mellitus (1324338931402) Type 2 diabetes mellitus with diabetic neuropathy, without long-term current use of insulin (E11.40) Active confirmed Problem Ulcer of toe of right foot (disorder) (9648406055631723 1) Skin ulcer of toe of right foot, limited to breakdown of skin (L97.511) Active confirmed Problem Ulcer of right foot (disorder) (014024704) Skin ulcer of right foot, limited to breakdown of skin (L97.511) Active confirmed Plan Of Treatment No Information Insurance Providers Payer Name Payer Address Payer Phone Subscriber Number Group Number Insured Name Patient Relationship to Insured Coverage Start Date Coverage End Date An[employer] Medicare [address] [place] [address] [id number] Johanny Molina Self - patient is the insured [employer] [address] [place], [place] [id number] Johanny Molina Self - patient is the insured Medical (General) History Medical History History ICD Code diabetes hypertension shortness of breath lung disease asthma gastritis Sinus headaches Surgical History Surgery Date(Month/Year) section hysterectomy bladder surgery melanoma excision kidney stones tubal ligation gall bladder D&C
--- OUTSIDE RECORDS SUMMARY | 2025-03-26 20:16 | XMS_ITS | Continuity of Care Document ---
Author Organization [facility] - [facility] Address [address] [place] [address] Assessment Encounter Date Assessment Date Assessment LastModified by Organization Details LastModified Time 02/26/2025 02/26/2025 Ms. Molina has a history [...] I will follow up next pump refill. Not available 02/28/2025 07:27:42 Plan of Treatment Reminders Order Date Submit Date Provider Last Modified By Organization Details Last Modified Time Details Appointments OV EST 15 026 10:15AM Nicholas Guzman MD Not available Not available Not available Lab None record ed. Referral None record ed. Procedures None record ed. Surgeries None record ed. Imaging None record ed. Medication Orders None record ed. Patient TargetsNo targets recorded. Patient Instructions Encounter Date Encounter Id Patient Instructions Last Modified By Organization Details Last Modified Time 02/26/[id number] I have discussed in great detail our [...] IV medications that require review by law. gbeardsworth Not available 02/26/2025 07:53:12 Reason for Referral None Reported. Results Created Date Observation Date Name Description Value Unit Range Abnormal Flag Note LastModifiedBy Organization Detail LastModifiedTime 02/19/2002/20/2025 PATHO LOGY SPECI MEN pathology specimen SEE REPORT SEE ATTAC HED REPOR T Not Available [facility] [address] [facility], [place], [address], 02/20/2025 02:16:29 02/13/2001/30/2025 elect deanna diogr am, routi ne ECG, 12 leads min No observ ation record ed. [email or web address] [address], [place], [address], 02/18/2025 08:06:29 Result Notes None recorded. Problems Name Problem SNOMED Code Status Onset Date Resolution Date Notes Provider Name and Address Organization Details Recorded Time Symbolic dysfunction 604838478 Active 2022 Angi rolon, ANITA - JEFFNT [facility] & [place] 3 11:21:45 Type 2 diabetes mellitus 90807783 Active 2022 ANITA Gonzalez - MIGUEL [facility] & [place] 3 11:21:58 Vitamin D deficiency 84147110 Active 2022 ANITA Gonzalez - JEFFNT [facility] & [place] 3 11:22:20 Hypercholes terolemia 47209393 Active 2022 Angi rolon, ANITA - [facility] - [place] & [place] 3 11:22:36 Hypokalemia 40999990 Active 2022 Angi Lantigua null, [place] - [facility] - [place] & [place] 3 11:22:42 Major depressive disorder 842272683 Active 2022 Angi Lantigua [place], [place] - [facility] - [place] & [place] 3 11:22:49 Behavioral and emotional disorder with onset in childhood 068430289 Active 2022 Angi Lantigua [place] - [place] & [place] 3 11:23:14 Neuropathy 840109551 Active 2022 Angi Lantig[place] & [place] 3 11:23:29 Lymphedema 078586292 Active 2022 Angi Lantig[place] & [place] 3 11:23:40 Gastroesoph ageal reflux disease 547446125 Active 2022 Angi Lantig[place] & [place] 3 11:23:49 Constipatio n 05868276 Active 2022 Angi Lantig[place] - [place] & [place] 3 11:23:54 Dysphagia 27940154 Active 2022 Angi Lantigua [place] - [place] & [place] 3 11:24:23 Seizure 26054022 Active 2022 Angi Lantig[place] - [place] & [place] 3 11:24:48 Morbid obesity 147725674 Active 2022 Angi Lantig[place] - [place] & [place] 3 11:24:59 Injury of head 07251020 Active 2022 Angi Lantigua [place] - [place] & [place] 3 11:25:20 Pain of bilateral knee joints 7795369001388 04 Active 2022 Meggan Swain [place] - [place] - [place] & [place] 3 12:24:31 Myofascial pain 584846737 Active 2022 Meggan Swain [place] - [facility] - [place] & [place] 3 12:24:32 Osteoarthri tis of left knee joint 6469920597978 09 Active 2022 Meggan Swain [place] - [place] & [place] 3 12:24:41 Osteoarthri tis of right knee joint 5436227566150 00 Active 2022 Meggan Swain [place] - [place] & [place] 3 12:53:37 Paresthesia of upper limb 83637133 Active 2022 Meggan Swain [place] & [place] 3 15:51:15 Pain in cervical spine 597958697 Active 2022 Meggan Swain [place] - [place] & [place] 3 15:51:16 Degeneratio n of lumbar interverteb ral disc 45010180 Active 2023 Meggan Swain [place] - [place] & [place] 4 18:18:48 Chronic pain syndrome 487278507 Active 2023 Meggan Swain [place] - [place] - [place] & [place] 4 18:18:53 Pain of right shoulder joint 5725600673465 9100 Active 2024 Everardorachael Munoz null, [place] - [facility] - [place] & [place] 5 07:27:47 Problem Notes None recorded. Procedures Surgical History Date Name Laterality Status Provider Name and Address Organization Details Recorded Time 01/16/20 25 Intrathecal Drug (ITD) Pump Refill completed Gloria HOWARD - [facility] - [place] & [place] 01/15/2025 13:09:39 01/16/20 25 PUMP CHANGES completed [facility] & [place] 01/15/2025 13:09:00 09/17/19 25 Intrathecal Drug (ITD) Pump Refill completed Gloria HOWARD - [facility] - [facility] & [place] 09/16/2024 14:08:48 09/17/19 25 PUMP CHANGES completed Gloria HOW[facility] [place] 09/16/2024 14:08:37 09/10/19 25 Intrathecal Drug (ITD) Pump Refill cancelled Selene Earl HOWARD - [facility] - [place] & [place] 09/05/2024 11:22:07 09/10/19 25 PUMP CHANGES cancelled Selene Earl HOWARD - [facility] - [place] & [place] 09/05/2024 11:22:07 05/06/20 24 Intrathecal Drug (ITD) Pump Refill completed Gloria HOWARD - [facility] & [place] 05/06/2024 16:51:22 05/06/20 24 PUMP CHANGES completed Meggan Mcgrawkins ANITA - [facility] - [facility] & [place] 05/06/2024 18:18:02 01/25/20 23 PUMP CHANGES completed Vivi HOWARD - [facility] - [place] & [place] 01/24/2023 13:50:17 11/04/19 23 PUMP CHANGES completed Vivi HOWARD - [facility] - [place] & [place] 11/03/2022 13:20:28 10/04/19 23 PUMP CHANGES completed ALETHEA GRULLON [address] [facility], [place], [address], ANITA - [facility] & [place] 10/04/2022 11:54:22 09/21/19 23 PUMP CHANGES completed Vivi Darrell HOWARD - [facility] - [place] & [place] 09/21/2022 08:03:23 07/12/19 23 PUMP CHANGES completed Meggan Mcgrawkins [place] - [facility] - [place] & [place] 07/12/2022 12:59:56 Imaging Results None recorded. Procedure Notes None recorded. Medical Equipment None Reported. Allergies Allergen ID Allergen Name Allergen Category Reaction Reaction Severity Criticality Documentation Date Start Date Code Code System Note Provider Name and Address Organization Details Recorded Time 02207 tramadol medicatio n Not available Not available Not available 05/19/2022 25003 RxNorm Angi rolon [place] - [facility] - [place] & [place] 3 11:03:13 33974 Wellbutri n medicatio n Not available Not available Not available 05/19/2022 10430 [facility] [place] 3 11:03:20 86392 influenza virus vaccine, specific Not available Not available Not available Not available 05/19/2022 [facility] [place] 3 11:03:38 91627 aspirin medicatio n Not available Not available Not available 05/19/2022 1191 RxNorm ANITA Gonzalez [facility] & [place] 3 11:03:45 13150 azithromy ammon medicatio n Not available Not available Not available 05/19/2022 42909 RxNorm Angi rolon, [facility] & [place] 3 11:03:51 71632 Cephalosp brant (substanc e) medicatio n Not available Not available Not available 05/19/2022 13252 7003 SNOMED Angi rolon, [facility] [place] 3 11:03:58 Medications Name Sig Start Date [...] azelastine 137 mcg (0.1 %) nasal spray [place] 2 sprays twice a day by intranasal [...] % 98 % 61 /min 128/61 mm[Hg] [facility] & [place] 5 15:06:59 Social History None recorded. Functional Status None recorded. Mental Status None recorded. Family History Nothing Reported. Medical History No medical history recorded. Gynecological HistoryNo gynecological history recorded. Obstetrics History GPAL:G 0 P 0 0 0 0 Past Encounters Encounter ID Performer Location Encounter Start Date Encounter Closed Date Diagnosis/Indication Diagnosis SNOMED-CT Code Diagnosis ICD10 Code Diagnosis IMO Codes Diagnosis Note [id number] Nicholas Guzman MD [facility] [address] [place] [address] 02/26/2025 14:52:08 02/26/2025 16:09:26 Chronic pain syndrome 670550584 G89.4 Degenerati on of lumbar intervertebral disc 41055671 M51.369 Pain of bi lateral knee joints 9277102467 13164 M25.561 M25.562 Paresthesi a of upper limb 42611910 R20.2 Pain of ri ght shoulder joint 2197104656 4687593 M25.511 905064 Health Concerns Section Related Observation LastModified by Organization Detai ls LastModified Time None Recorded Concern Status LastModified by Organization Details LastModified Time None Recorded Payers Encounter Date Sequence Insurance Name Policy Number Policy Stoner Covered Member ID Stoner Member ID Guarantor Name 02/26/2025 2 MEDICAID-[facility] CHOICES - FFS/TRADITIO NAL Johanny Molina [id number] Johanny Molina 02/26/2025 1 [place] Johanny Molina [id number] Johanny Molina Notes Date Note Type Note Provider Name and Address Organization Details Recorded Time 02/26/2025 text/html ROS as noted in the HPI [...] time. Patient's pain level today is 5/10. Nicholas Guzman MD [address], [place], [address], [facility] & [place] 02/28/2025 11:38:54 OBGyn Episode No OBEpisode recorded.
[2025-03-26 20:55] LABS: Hematocrit 36.3 % (37.0-47.0); Hemoglobin 12.3 g/dL (12.2-16.2); Immature Granulocytes % 1.6 %; Mean Corpuscular HGB Conc 33.9 g/dL (31.8-35.4); Mean Corpuscular Hemoglobin 32.2 pg (27.0-31.2); Mean Corpuscular Volume 95.0 fl (81-99); Nucleated Red Blood Cells % 0 %; Platelet Count 381 K/mm3 (142-424); Red Blood Count 3.82 M/mm3 (4.20-5.40); Red Cell Distribution Width-SD 42.5 fL; White Blood Count 9.2 K/mm3 (4.8-10.8)
[2025-03-26] MEDS: FAMOTIDINE 20MG/2ML VIAL 20 MG IV (20:59)
[2025-03-26] MEDS: MORPHINE 4MG/ML SYRINGE 4 MG IV (20:59)
[2025-03-26] MEDS: SODIUM CHLORIDE 0.9% 10ML VIAL 8 ML IV (20:59)
[2025-03-26] MEDS: ONDANSETRON 4MG/2ML VIAL 4 MG IV (20:59)
[2025-03-26 21:07] LABS: Alanine Aminotransferase 26 U/L (12-78); Albumin Level 4.3 g/dl (3.5-5.0); Albumin/Globulin Ratio 1.7 (1.1-1.8); Alkaline Phosphatase 43 U/L (38-126); Anion Gap 11.5 mEq/L (5-15); Aspartate Amino Transferase 27 U/L (14-36); Bilirubin,Total 0.5 mg/dl (0.2-1.3); Blood Urea Nitrogen 28 mg/dl (7-17); Calcium 10.0 mg/dl (8.4-10.2); Carbon Dioxide 28 mmol/L (22.0-30.0); Chloride 92 mmol/L (98-107); Creatinine Clearance Estimated 50 mL/min (50-200); Creatinine,Serum 1.00 mg/dl (0.52-1.04); Estimated Glomerular Filt Rate 55 ml/min (>60); GFR (African American) 67 ML/MIN (>60); Globulin 2.6 g/dL (1.3-3.2); Glucose 107 mg/dl (74-100); Lipase 151 U/L (23-300); Magnesium 1.5 mg/dl (1.6-2.3); Potassium 4.5 mmoL/L (3.5-5.1); Sodium 127 mmol/L (136-145); Total Protein,Serum 6.9 g/dl (6.3-8.2)
[2025-03-26 21:22] LABS: Troponin I < 0.01 ng/ml (0.00-0.034)
[2025-03-26] MEDS: MAGNESIUM SULFATE IN WATER 2 GM/50 ML PIGGYBACK IV (21:46)
[2025-03-26 23:17] LABS: Troponin I < 0.01 ng/ml (0.00-0.034)
[2025-03-26 23:45] LABS: Microscopic, Urine URINE MICROSCOPIC (MICROSCOPIC)
[2025-03-26 23:52] LABS: Bilirubin,Urine Negative (Negative); Color,Urine YELLOW (Yellow); Glucose,Urine (UA) Negative (Negative); Ketones,Urine Negative (Negative); Leukocyte Esterase,Urine 3+ (Negative); PH,Urine 7.0 (5.0-8.5); Protein,Urine Negative (Negative); Specific Gravity, Urine 1.010 (1.005-1.030); Urobilinogen,Urine 0.2 EU/dl (0.2)
[2025-03-27] VITALS (12 sets, daily range): BP systolic 92–115; BP diastolic 43–76; PULSE 65–76; RESP 13–20; TEMP 36.5–37.1; O2SAT 92–100; BMI 86.8; BMI 37.3
[2025-03-27 00:07] LABS: WBC,Urine TNTC #/hpf (0-3)
[2025-03-27] MEDS: 0.9 % SODIUM CHLORIDE 1000ML 1,000 ML 100 ML IV ×2 (01:51→09:19)
--- NOTE | 2025-03-27 01:59 | PC.NURSE ---
Ezio called report at 158 am from the ER Pt will be coming up by [place]. Pt is being admitted with a UTI. NICHO KERN RN
--- NOTE | 2025-03-27 02:13 | PC.NURSE ---
Patient arrived to floor via stretcher from ED at 02:11.
[2025-03-27 03:19] LABS: Troponin I < 0.01 ng/ml (0.00-0.034)
--- NOTE | 2025-03-27 03:41 | P.HP_ITS ---
<Statement entered by Davi Mckay MD - 03/27/25 13:12> Rounded on patient after nurse practitioner. Personally examined and interviewed patient. Agree with exam findings and care plan as documented. History of Present Illness *Admission Date: 03/27/25 *Reason for visit:: Abdominal pain and chest pain *History of present illness: 65-year-old female patient with history of sarcoidosis who is resident at a local nursing facility presents to ER with complaints of muscle spasms in her abdomen as well as chest pain radiating to her back. She denies shortness of breath. She did have nausea but no vomiting or diarrhea. No diaphoresis. No fever chills or bodyaches. She has had some dizziness recently. [facility] She [facility] she states for 4 years. Initial workup in the ER for chest pain was unremarkable. Troponins have been less than 0.01. She did receive magnesium IV in the ER for magnesium level 1.5. States she is feeling much better. No longer having chest pain. She was found however to have a urinary tract infection. She was given Macrobid around March 19 and symptoms did not improve so she was switched then to cefdinir on March 23. Her urinalysis today in the ER looked worse. She has too numerous to count white cells where previously she had 3-5. She has 3+ leukocyte esterase and negative nitrates. Urine culture from March 19 shows Proteus and E. coli resistant to nitrofurantoin but sensitive to ceftriaxone. She was given ceftriaxone in the ER. She was also given IV fluids in the ER. [facility] Disclaimer: The information contained in this section may have been updated after the patient was seen, as this information can be updated by other users. Medical History (Updated 03/27/25 @ 04:25 by Caitlyn Hodge APRN) Herpes simplex Neurogenic bladder Urinary retention Lymphedema Pancreatitis Skin cancer Multiple pulmonary nodules Complex sleep apnea syndrome Schizoaffective disorder, unspecified HTN (hypertension) Recurrent UTI Colon cancer screening Cardiac dysrhythmia Pure hypercholesterolemia, unspecified Seizure disorder COPD (chronic obstructive pulmonary disease) Bilateral lower extremity edema Diabetic foot Lymphedema Onychomycosis Obesity (BMI 30-39.9) LANCE (obstructive sleep apnea) Sepsis History of MRSA infection of lungs Diabetes type 2, controlled Anxiety Acute hypoxemic respiratory failure Hospital-acquired pneumonia Chronic hypercapnic respiratory failure Dysphagia Elevated left ventricular end-diastolic pressure (LVEDP) CAD in [place] artery Hyperlipidemia Vitamin D deficiency, unspecified Obstructive sleep apnea (adult) (pediatric) Acute pancreatitis without necrosis or infection, unspecified Unspecified fracture of left patella, initial encounter for closed fracture Interstitial cystitis Hx of bipolar disorder Migraine GERD (gastroesophageal reflux disease) Depression Mild persistent asthma Personal history of sarcoidosis CHF (congestive heart failure) Anemia Surgical History Status post foot surgery Status post surgical removal of malignant neoplasm of skin History of sinus surgery History of hysterectomy History of dilation and curettage History of section History of colonoscopy Hx of cholecystectomy History of tonsillectomy Family History Other CHF (congestive heart failure) Social History Smoking Status: Never smoker alcohol intake: never substance use type: denies use current occupational status: unemployed Travel in the last 8 weeks?: None household members: caregiver housing: assisted living facility caffeine: No Have you lived/traveled outside US in past 30 days?: No Contact w/someone who lives/traveled outside US past 30 days?: No Exposure to someone with infectious disease in past 14 days?: No Do you have a fever (greater than 100.4 F or 38 C)?: No Have you tested positive for COVID-19?: No Exposed to someone with COVID-19 in past 14 days?: No Do you have a sore throat?: No Do you have a cough?: No Do you have any weakness?: No Do you have any diarrhea?: No Are you experiencing any unusual bleeding?: No Do you have any muscle aches/pain?: No Do you have any abdominal pain?: No Are you experiencing loss of taste or smell?: No Other Medical History Have you received the Flu Vaccine for this season: Yes Have you received the Pneumonia Vaccine: No Review of Systems Constitutional Constitutional: Denies body ache(s), Denies chills and Denies fever(s) Eyes Eyes: Reports system reviewed and no additional complaints, except as documented ENT Ears, Nose, Mouth, and Throat: Reports system reviewed and no additional complaints, except as documented *Cardiovascular Cardiovascular: Reports chest pain, Denies diaphoresis and Denies dyspnea *Respiratory Respiratory: Denies dyspnea *Gastrointestinal Gastrointestinal: Reports abdominal pain, Denies loose stools, Reports nausea and Denies vomiting *Genitourinary Genitourinary: Denies difficulty voiding *Musculoskeletal Musculoskeletal: Reports system reviewed and no additional complaints, except as documented *Neurologic Neurologic: Denies abnormal speech and Denies confusion Psychiatric Psychiatric: Denies confusion Meds Home Medications and Allergies Home Medications ?Medication ?Instructions ?Recorded ?Confirmed ?Type acetaminophen 500 mg tablet 500 mg PO Q6HP PRN Pain 03/27/25 History ferrous sulfate 325 mg (65 mg 325 mg PO TID Supplement 04/17/20 03/27/25 History iron) tablet fludrocortisone 0.1 mg tablet 0.1 mg PO DAILY Adrenal disease 04/17/20 03/27/25 History omeprazole 20 mg tablet,delayed 20 mg PO DAILY acid re flux 04/17/20 03/27/25 History release ondansetron HCl 4 mg tablet 4 mg PO TIDP PRN Nausea 03/27/25 History polyethylene glycol 3350 17 gram 17 gm PO DAILY CONSTI PATION 10/12/20 03/27/25 History oral powder packet albuterol sulfate 90 mcg/actuation 2 inh inhalation Q6 HP PRN 03/13/21 03/27/25 History aerosol inhaler shortness of breath or wheez ing bisacodyl 10 mg rectal suppository 10 mg CO DAILYP PRN Constipation 03/14/21 03/27/25 History linaclotide 290 mcg capsule 290 mcg PO HS Irritable flip wel 04/27/22 03/27/25 History (Linzess) syndrome bethanechol chloride 25 mg tablet 25 mg PO QID bladder control 30 04/29/22 03/27/25 Rx days #0 tabs aripiprazole 300 mg suspension, 300 mg IM MONTHLY 12/1503/27/25 History extended rel. intramuscular syringe (Brandon Mcclellan) cetirizine 10 mg tablet (Zyrtec) 10 mg PO DAILY 03/27/25 History azelastine 137 mcg (0.1 %) nasal 1 spray intranasal BI D 04/18/23 03/27/25 History spray loperamide 2 mg capsule 2 mg PO Q6H PRN Diarrhea 10/0403/27/25 History meclizine 12.5 mg tablet 12.5 mg PO BIDP Dizziness 03/27/25 History montelukast 10 mg tablet 10 mg PO HS 04/18/23 5 History (Singulair) peg [id number] 1 1 drp ophthalmic (eye) Q6HP PRN 04/18/23 03/27/25 History %-0.2 %-0.2 % eye drops dry eye(s) (Artificial Tears ([id number])) divalproex 500 mg tablet,delayed 500 mg PO BID 4 03/27/25 History release fluticasone furoate 100 1 inh inhalation DAILY #60 e a 07/26/23 03/27/25 Rx mcg-vilanterol 25 mcg/dose inhalation powder (Breo Ellipta) potassium chloride 20 mEq 20 meq PO DAILY 08/08/23 History tablet,extended release magnesium oxide 400 mg PO DAILY #14 tabs 03/27/25 Rx aspirin 81 mg tablet,delayed 81 mg PO DAILY 02/16/24 1 05/27/24 History release atorvastatin 20 mg tablet (Lipitor) 20 mg PO HS 03/27/25 History furosemide 40 mg tablet 40 mg PO DAILY 02/16/2403/15 History metoprolol succinate 25 mg 12.5 mg PO HS 02/16/2403/15 History tablet,extended release 24 hr (Toprol XL) fluticasone propionate 50 2 spray intranasal DAILY 05/0703/27/25 History mcg/actuation nasal spray,suspension (Flonase Allergy Relief) magnesium hydroxide 400 mg/5 mL 2,400 mg PO DAILY PRN Indigestion 03/26/24 03/27/25 History oral suspension (Milk of Magnesia) phenazopyridine 95 mg tablet (Azo 190 mg PO TID PRN UT I symptoms 03/26/24 03/27/25 History Urinary Pain Relief) guaifenesin 100 mg/5 mL oral 200 mg PO Q4H PRN Cough 0 05/30/24 03/27/25 History liquid (Robafen) cholecalciferol (vitamin D3) 125 125 mcg PO DAILY 05/1603/27/25 History mcg (5,000 unit) capsule icosapent ethyl 1 gram capsule 2 g PO BID 06/04/24 History (Vascepa) sucralfate 1 gram tablet 1 g PO BID 06/04/24 03/27/25 History terazosin 10 mg capsule 10 mg PO HS 06/04/24 5 History venlafaxine 150 mg 150 mg PO DAILY 06/04/24 History capsule,extended release 24 hr sennosides 8.6 mg tablet (senna) 17.2 mg PO BID 03/27/25 History cranberry fruit 450 mg tablet 900 mg PO DAILY 09/19/24 03/27/25 History fenofibrate nanocrystallized 145 145 mg PO DAILY 09/1903/27/25 History mg tablet lisinopril 5 mg tablet 5 mg PO DAILY 12/19/2403/27 History metformin 500 mg tablet 500 mg PO BID 12/19/2403/27 History lactulose 10 gram/15 mL oral 30 ml PO DAILY PRN Consti pation 01/16/25 03/27/25 History solution gabapentin 300 mg capsule 300 mg PO TID #90 caps 03/0103/27/25 Rx ipratropium 0.5 mg-albuterol 3 mg 3 ml inhalation Q6H PRN soa 03/18/25 03/27/25 History (2.5 mg base)/3 mL nebulization soln cefdinir 300 mg capsule 300 mg PO BID #14 caps 03/2303/27/25 Rx New Prescriptions to Start Prescriptions: Allergies Allergy/AdvReac Type Severity Reaction Status Date / Time aspirin Allergy Unknown Unknown Verified 03/18/25 11:07 allergy reaction azithromycin Allergy Unknown Unknown Verified 03/18/25 11:07 allergy reaction bupropion (From Wellbutrin Allergy Unknown Unknown Verified 03/18/25 11:07 SR) allergy reaction levofloxacin (From Levaquin) Allergy Unknown Unknown Verified 03/18/25 11:07 allergy reaction erythromycin base AdvReac Unknown Unknown Verified 03/18/25 11:07 allergy reaction tramadol AdvReac Unknown Unknown Verified 03/18/25 11:07 allergy reaction influenza vaccine AdvReac Unknown Unknown Uncoded 01/16/25 11:46 allergy reaction Exam Data for Last 24 hours Vital signs and Labs for Last 24 Hours: Temp Pulse Resp BP Pulse Ox O2 Del Method 97.7 F 70 18 103/64 L 92 L Room Air 03/27/25 02:48 03/27/25 02:48 03/27/25 02:48 03/27/25 02:48 03/27/25 02:48 03/27/25 02:48 Laboratory Results - last 24 hr 03/26/25 20:42: WBC 9.2, RBC 3.82 L, Hgb 12.3, Hct 36.3 L, MCV 95.0, MCH 32.2 H, MCHC 33.9, RDW 12.1, Plt Count 381, MPV 9.5, Neut % (Auto) 53.3, Lymph % (Auto) 33.8, Graves % (Auto) 9.0, Eos % (Auto) 1.6, Baso % (Auto) 0.7, Neut # (Auto) 4.9, Lymph # (Auto) 3.1, Graves # (Auto) 0.8, Eos # (Auto) 0.2, Baso # (Auto) 0.1, Sodium 127 L, Potassium 4.5, Chloride 92 L, Carbon Dioxide 28, Anion Gap 11.5, BUN 28 H, Creatinine 1.00, Estimated Creat Clear 50, Estimated GFR 55 L, Est GFR ( Amer) 67, Glucose 107 H, Calcium 10.0, Magnesium 1.5 L, Total Bilirubin 0.5, AST 27, ALT 26, Alkaline Phosphatase 43, Troponin I < 0.01, Total Protein 6.9 D, Albumin 4.3, Globulin 2.6, Albumin/Globulin Ratio 1.7, Lipase 151 03/26/25 22:41: Troponin I < 0.01 03/26/25 23:41: Urine Color Yellow, Urine Appearance Sl cloudy, Urine pH 7.0, Ur Specific [place] 1.010, Urine Protein Negative, Urine Glucose (UA) Negative, Urine Ketones Negative, Urine Blood Trace-i, Urine Nitrate Negative, Urine Bilirubin Negative, Urine Urobilinogen 0.2, Ur Leukocyte Esterase 3+ A, Urine WBC Tntc 03/27/25 02:27: Troponin I < 0.01 I & O for Last 24 hours: Intake & Output 03/24/25 03/25/25 03/26/25 03/27/25 23:59 23:59 23:59 23:59 Intake Total 50 / 50 Balance 50 / 50 Weight 136.078 kg Constitutional Constitutional: no acute distress *Routine HEENT Exam Head: Present normocephalic and atraumatic Eye: Present PERRL ENT: Present mucous membranes moist *Routine Neck Exam Neck: Present supple *Routine Respiratory Exam Respiratory: Present CTA bilaterally *Routine Cardiovascular Exam Cardiovascular: Present RRR, Normal S1 and Normal S2 *Routine Abdominal Exam Abdominal: Present soft and normoactive bowel sounds; Absent tenderness *Routine Rectal Exam Rectal:: deferred *Routine Genitalia Exam Genitalia:: deferred *Routine Extremities Exam Comments: Lower extremity lymphedema, pressure ulcer left heel *Routine Skin Exam Skin: Present dry, warm and wounds (Pressure ulcer left heel) *Routine Neurological Exam Neurological: Present alert and oriented X3 Assessment and Plan *Assessment and plan (1) Recurrent UTI: Status: Acute Category: Medical Code(s): N39.0 - Urinary tract infection, site not specified (2) Atypical chest pain: Status: Acute Category: Medical Code(s): R07.89 - Other chest pain (3) Hypomagnesemia: Status: Acute Category: Medical Code(s): E83.42 - Hypomagnesemia (4) Pressure ulcer: Status: Acute Qualifiers: Pressure injury location: heel Pressure injury stage: stage 3 Laterality: left Qualified Code(s): L89.623 - Pressure ulcer of left heel, stage 3 Category: Medical Code(s): L89.90 - Pressure ulcer of unspecified site, unspecified stage (5) Schizoaffective disorder, unspecified: Status: Chronic Qualifiers: Schizoaffective disorder type: unspecified Qualified Code(s): F25.9 - Schizoaffective disorder, unspecified Category: Medical Code(s): F25.9 - Schizoaffective disorder, unspecified (6) HTN (hypertension): Status: Chronic Qualifiers: Hypertension type: unspecified Qualified Code(s): I10 - Essential (primary) hypertension Category: Medical Code(s): I10 - Essential (primary) hypertension (7) CAD in [place] artery: Status: Chronic Category: Medical Code(s): I25.10 - Atherosclerotic heart disease of [place] coronary artery without angina pectoris (8) Hyperlipidemia: Status: Acute Qualifiers: Hyperlipidemia type: mixed hyperlipidemia Qualified Code(s): E78.2 - Mixed hyperlipidemia Category: Medical Code(s): E78.5 - Hyperlipidemia, unspecified (9) Mild dehydration: Status: Acute Category: Medical Code(s): E86.0 - Dehydration Plan This 65-year-old female presents from local nursing facility with abdominal cramping and chest pain. Workup for chest pain is unremarkable. It is noted that she is on cefdinir for UTI. This is actually her second round of antibiotics, she was initially started on nitrofurantoin. Urinalysis done in the ER showed continued infection and in fact worsening with too numerous to count white cells in the urine. I discussed this case with the ER provider and given her failed outpatient treatment of the UTI we will go ahead and admit her for further treatment and evaluation. She was given IV Rocephin in the ER, we will continue that as her culture from March 19 shows Proteus and E. coli both sensitive to Rocephin. Urine culture from today is pending. She will receive IV fluids for hydration as her BUN is slightly elevated out of proportion to her creatinine. Hypomagnesemia?magnesium replaced in the ER. Repeat magnesium level with morning labs. Electrolyte protocol will be in place. Atypical chest pain?serial troponins are negative. EKG shows a sinus rhythm with no ST changes. Will monitor on telemetry. Chest pain resolved. Pressure ulcer left heel?this is present on admission, will have PT wound care evaluate and treat.
--- NOTE | 2025-03-27 06:13 | PC.NURSE ---
SPOKE WITH ZAINA DRAKE APRN, ORDER FOR BLOOD CULTURES OBTAINED.
[2025-03-27 07:10] LABS: Hematocrit 33.6 % (37.0-47.0); Hemoglobin 11.4 g/dL (12.2-16.2); Immature Granulocytes % 2.1 %; Mean Corpuscular HGB Conc 33.9 g/dL (31.8-35.4); Mean Corpuscular Hemoglobin 32.8 pg (27.0-31.2); Mean Corpuscular Volume 96.6 fl (81-99); Nucleated Red Blood Cells % 0 %; Platelet Count 334 K/mm3 (142-424); Red Blood Count 3.48 M/mm3 (4.20-5.40); Red Cell Distribution Width-SD 43.6 fL; White Blood Count 7.6 K/mm3 (4.8-10.8)
[2025-03-27 07:34] LABS: Alanine Aminotransferase 24 U/L (12-78); Albumin Level 3.7 g/dl (3.5-5.0); Albumin/Globulin Ratio 1.6 (1.1-1.8); Alkaline Phosphatase 40 U/L (38-126); Anion Gap 12.0 mEq/L (5-15); Aspartate Amino Transferase 24 U/L (14-36); Bilirubin,Total 0.3 mg/dl (0.2-1.3); Blood Urea Nitrogen 29 mg/dl (7-17); Calcium 9.0 mg/dl (8.4-10.2); Carbon Dioxide 26 mmol/L (22.0-30.0); Chloride 94 mmol/L (98-107); Creatinine Clearance Estimated 47 mL/min (50-200); Creatinine,Serum 1.10 mg/dl (0.52-1.04); Estimated Glomerular Filt Rate 50 ml/min (>60); GFR (African American) 60 ML/MIN (>60); Globulin 2.3 g/dL (1.3-3.2); Glucose 99 mg/dl (74-100); Potassium 4.0 mmoL/L (3.5-5.1); Sodium 128 mmol/L (136-145); Total Protein,Serum 6.0 g/dl (6.3-8.2)
[2025-03-27 07:45] LABS: Magnesium 1.8 mg/dl (1.6-2.3)
--- NOTE | 2025-03-27 08:06 | SW/DCPLANNER ---
Addendum entered by Nadia Santacruz 03/27/25 11:14: I have updated Su w/ [facility] that patient will return today [facility] level of care and will need IM ertapenem. Original Note: Patient currently resides at [facility] level of care. I will continue to follow up w/ Su from [facility]. Updated patient information will be faxed. Discharge date is unknown at this time.
--- NOTE | 2025-03-27 08:57 | PC.WOUNDNOTE ---
incision noted to lower back wound noted to left heel wound noted to left heel
--- NOTE | 2025-03-27 09:08 | HMH.OTEV ---
OT Evaluation Rehab OT IP Evaluation Start: 03/27/25 02:28 Freq: ONCE Status: Active Protocol: Document 03/27/25 09:03 SCOTTIEJENISE (Rec: 03/27/25 09:08 [id number]) Rehab OT IP Assessment Subjective History 65-year-old female patient with history of sarcoidosis who is resident at a local nursing facility presents to ER with complaints of muscle spasms in her abdomen as well as chest pain radiating to her back. She denies shortness of breath. She did have nausea but no vomiting or diarrhea. No diaphoresis. No fever chills or bodyaches. She has had some dizziness recently. She is bed and wheelchair bound at the assisted. She has been there she states for 4 years. Initial workup in the ER for chest pain was unremarkable. Troponins have been less than 0.01. She did receive magnesium IV in the ER for magnesium level 1.5. States she is feeling much better. No longer having chest pain. She was found however to have a urinary tract infection. She was given Macrobid around March 19 and symptoms did not improve so she was switched then to cefdinir on March 23. Her urinalysis today in the ER looked worse. She has too numerous to count white cells where previously she had 3-5. She has 3+ leukocyte esterase and negative nitrates. Urine culture from March 19 shows Proteus and E. coli resistant to nitrofurantoin but sensitive to ceftriaxone. She was given ceftriaxone in the ER. She was also given IV fluids in the ER. Resident of [facility]. 1-2 assistance for ADLs and fx'l mobility. Uses a w/c for mobility to propel self within facility. Subjective I can try to sit up. Instructed Patient on safety awareness to complete bed mobility from supine->sit @ EOB with proper hand and foot placement. Patient required Mod A to complete transition along with SBA at EOB. Encouraged patient to complete STS from EOB. However Patient stated, I can' t stand right now. I want to lay back down. Assisted Patient from EOB->supine with Mod A. Objective Patient Orientation Person,Place,Name,Birthday Right Upper WFL Extremity Gross ROM Left Upper Extremity WFL Gross ROM Bed Mobility bed mobility - supine/sit Assist Level Moderate x 1 (50% assist) Rehab OT IP prob,goals,plan Problems Date of Evaluation: 03/27/25 OT IP Problems Bed Mobility,Transfers,Balance,Self care,Safety Rehab Potential Rehab Potential Good Equipment Needs Assistive Devices Rolling / Wheeled Walker Plan OT intervention Plan Bed Mobility,Transfers,Balance,Self care,Safety, Therapeutic Exercise OT Plan Frequency Daily Duration LOS Discharge Goals Bed Mobility Ability Assistance x1 Discharge Plan OT Discharge Plan Recommend patient return back to [facility] Facility after medical d/c. Patient to continue skilled OT IP services while here at [facility] with focus on addressing safety awareness with ADLs and fx'l mobility . Eval Complexity Eval Charge Codes 61295 - Low Complexity PHYSICIAN CERTIFICATION: I certify the specified therapy services for Johanny Molina are required, authorized, and reviewed every 30 days.
[2025-03-27] MEDS: DIVALPROEX 500MG (Delayed-Release) TABLET 500 MG PO (09:12)
[2025-03-27] MEDS: VENLAFAXINE XR 75MG CAPSULE 150 MG PO (09:12)
[2025-03-27] MEDS: POLYETHYLENE GLYCOL 3350 17 GM PACKET PO (09:12)
[2025-03-27] MEDS: BETHANECHOL 25 MG PO ×2 (09:12→12:27)
[2025-03-27] MEDS: GABAPENTIN 300MG CAPSULE 300 MG PO ×2 (09:12→12:27)
--- NOTE | 2025-03-27 09:12 | P.CONPHA_ITS ---
Pharmacy Intervention Comments: Home medication list verified using MAR from retirement
[2025-03-27] MEDS: ASPIRIN EC 81MG TABLET 81 MG PO (09:13)
[2025-03-27] MEDS: FUROSEMIDE 40 MG TABLET PO (09:13)
--- NOTE | 2025-03-27 09:42 | HMH.PHAAMS2 ---
- Antimicrobial Stewardship Review culture & sensitivity review Stewardship interventions: culture & sensitivity review (URINE RESULTED ON 03/22/25 POSITIVE FOR PROTEUS MIRABILIS/E. COLI SENSITIVE TO ROCEPHIN.)
--- NOTE | 2025-03-27 09:48 | HMH.PTEV ---
Physical Therapy Evaluation Rehab PT IP Evaluation Start: 03/27/25 04:49 Freq: ONCE Status: Active Protocol: Document 03/27/25 09:44 SAÚL (Rec: 03/27/25 09:48 SAÚL [id number]) Subjective/History History History Per H&P: 65-year-old female patient with history of sarcoidosis who is resident at a local nursing facility presents to ER with complaints of muscle spasms in her abdomen as well as chest pain radiating to her back. She denies shortness of breath. She did have nausea but no vomiting or diarrhea. No diaphoresis. No fever chills or bodyaches. She has had some dizziness recently. She is bed and wheelchair bound at the senior care. She has been there she states for 4 years. Initial workup in the ER for chest pain was unremarkable. Troponins have been less than 0.01. She did receive magnesium IV in the ER for magnesium level 1.5. States she is feeling much better. No longer having chest pain. She was found however to have a urinary tract infection. She was given Macrobid around March 19 and symptoms did not improve so she was switched then to cefdinir on March 23. Her urinalysis today in the ER looked worse. She has too numerous to count white cells where previously she had 3-5. She has 3+ leukocyte esterase and negative nitrates. Urine culture from March 19 shows Proteus and E. coli resistant to nitrofurantoin but sensitive to ceftriaxone. She was given ceftriaxone in the ER. She was also given IV fluids in the ER. Subjective Subjective Pt reports she has lived at [facility] for 4 years. Pt uses a w/c for all mobility. Pt reports she is normally able to stand and pivot into her wheelchair from EOB. [facility] How much help from another person do you currently need... Turning from your A little back to your side while in a flat bed without using bedrails? Moving from lying on A little back to sitting on the side of a flat bed without using bedrails? Moving to and from a A lot bed to a chair ( including a wheelchair)? Standing up from a A lot chair using your arms? (e.g., wheelchair, bedside chair) Walking in hospital A lot room? Climbing 3-5 steps A lot with a railing? Mobility Score 14 Mobility Level [facility] Mobility 4 Move to chair/commode Mobility Calculator Rehab PT IP Eval Objective Appearance Patient Behavior Appropriate,Cooperative Patient Orientation Person,Situation Difficulty following none instructions Speech Pattern Clear Ambulation Patient Able to No Ambulate Balance Ability to Arise Able, uses arms to help Sitting Balance Steady, safe Standing Balance Unsteady Transfers Bed Transfer Ability Moderate x 2 (50% assist) Rehab PT IP prob,goals,plan Problems Date of Evaluation: 03/27/25 PT IP Problems Bed Mobility,Transfers,Gait,Balance,Self care,Safety Rehab Potential Rehab Potential Good Plan PT Intervention Plan Bed Mobility,Transfers,Gait,Balance,Self care,Safety, Therapeutic Exercise Other Intervention 1-2 daily Plan PT Plan Frequency Daily Duration LOS Discharge Goals Bed Transfer Ability Moderate x 1 (50% assist) Sit to Stand Chair Moderate x 1 (50% assist) Transfer Ability Discharge Plan PT Discharge Plan Pt only agreeable to EOB activity and denies standing at this time. Patient presents below baseline at this time in functional mobility, transfers, and strength. Pt would benefit from skilled PT while at [facility] to prevent further functional decline and maximize safety with mobility. Eval Complexity Eval Charge Codes 87976 - Moderate Complexity PHYSICIAN CERTIFICATION: I certify the specified therapy services for Johanny Molina are required, authorized, and reviewed every 30 days.
--- NOTE | 2025-03-27 11:26 | P.DS_ITS ---
<Statement entered by Davi Mckay MD - 03/27/25 13:12> Rounded on patient after nurse practitioner. Personally examined and interviewed patient. Agree with exam findings and care plan as documented. General Admission date:: 03/27/25 Discharge date: 03/27/25 HPI HPI HPI: 65-year-old female patient with history of sarcoidosis who is resident at a local nursing facility presents to ER with complaints of muscle spasms in her abdomen as well as chest pain radiating to her back. She denies shortness of breath. She did have nausea but no vomiting or diarrhea. No diaphoresis. No fever chills or bodyaches. She has had some dizziness recently. [facility] She has been there she states for 4 years. Initial workup in the ER for chest pain was unremarkable. Troponins have been less than 0.01. She did receive magnesium IV in the ER for magnesium level 1.5. States she is feeling much better. No longer having chest pain. She was found however to have a urinary tract infection. She was given Macrobid around March 19 and symptoms did not improve so she was switched then to cefdinir on March 23. Her urinalysis today in the ER looked worse. She has too numerous to count white cells where previously she had 3-5. She has 3+ leukocyte esterase and negative nitrates. Urine culture from March 19 shows Proteus and E. coli resistant to nitrofurantoin but sensitive to ceftriaxone. She was given ceftriaxone in the ER. She was also given IV fluids in the ER. Hospital Course Hospital Course Hospital Course: Ms. Molina is a 65-year-old female presents from [facility] as a long- term resident with abdominal cramping and chest pain. Workup for chest pain is unremarkable. It is noted that she is on cefdinir for UTI. This is actually her second round of antibiotics, she was initially started on nitrofurantoin. Urinalysis done in the ER showed continued infection and in fact worsening with too numerous to count white cells in the urine. Discussion was had with the emergency department provider who asked for admission due to failed outpatient treatment for her urinary tract infection, hospital medicine agreed to admit the patient. She was given IV Rocephin in the ER, we will continue that as her culture from March 19 shows Proteus and E. coli both sensitive to Rocephin. Urine culture from today is pending. She will receive IV fluids for hydration as her BUN is slightly elevated out of proportion to her creatinine. Patient was admitted to the medical surgical floor and admission has been without complication. Patient has received 1 dose IV Rocephin in the ED on admission, after reviewing previous urinary cultures it appears she has grown Proteus bacteria in her urine multiple times resistant to ceftriaxone. Previous cultures did show sensitivity to Invanz. At this time we will transition to Invanz 1 g daily for total of 5 days. She will receive her first dose prior to discharge, and will continue with Invanz 1 g IM daily for 4 more days. Patient did receive IV fluids during admission. At time of discharge BUN 29, creatinine 1.1. Patient should have BMP checked in approximately 1 week. Patient did have notable hyponatremia, sodium 128. This could be related to diuretic use. Should be monitored in approximately 1 week. Patient did initially complain of atypical chest pain, serial troponins remained negative. EKG showed sinus rhythm with no ST changes. Patient was placed on telemetry which has been unremarkable. Patient denies chest pain or discomfort. Notably patient had a pressure ulcer on admission on her left heel. PT wound care evaluated and recommended continuing with wound care at long-term nursing facility. At this time patient meets criteria to transition back to [facility] long-term care. Total time spent on discharge 32 minutes in counseling, documentation, chart review, and direct care with patient. Exam Data for Last 24 hours Vital signs and Labs for Last 24 Hours: Temp Pulse Resp BP Pulse Ox O2 Del Method O2 Flow Rate 98 F 74 16 108/63 L 99 Nasal Cannula 2 03/27/25 08:00 03/27/25 08:00 03/27/25 08:00 03/27/25 08:41 03/27/25 10:48 03/27/25 11:00 03/27/25 11:00 Laboratory Results - last 24 hr 03/26/25 20:42: WBC 9.2, RBC 3.82 L, Hgb 12.3, Hct 36.3 L, MCV 95.0, MCH 32.2 H, MCHC 33.9, RDW 12.1, Plt Count 381, MPV 9.5, Neut % (Auto) 53.3, Lymph % (Auto) 33.8, [place] % (Auto) 9.0, Eos % (Auto) 1.6, Baso % (Auto) 0.7, Neut # (Auto) 4.9, Lymph # (Auto) 3.1, [place] # (Auto) 0.8, Eos # (Auto) 0.2, Baso # (Auto) 0.1, Sodium 127 L, Potassium 4.5, Chloride 92 L, Carbon Dioxide 28, Anion Gap 11.5, BUN 28 H, Creatinine 1.00, Estimated Creat Clear 50, Estimated GFR 55 L, Est GFR ( Amer) 67, Glucose 107 H, Calcium 10.0, Magnesium 1.5 L, Total Bilirubin 0.5, AST 27, ALT 26, Alkaline Phosphatase 43, Troponin I < 0.01, Total Protein 6.9 D, Albumin 4.3, Globulin 2.6, Albumin/Globulin Ratio 1.7, Lipase 151 03/26/25 22:41: Troponin I < 0.01 03/26/25 23:41: Urine Color Yellow, Urine Appearance Sl cloudy, Urine pH 7.0, Ur Specific [place] 1.010, Urine Protein Negative, Urine Glucose (UA) Negative, Urine Ketones Negative, Urine Blood Trace-i, Urine Nitrate Negative, Urine Bilirubin Negative, Urine Urobilinogen 0.2, Ur Leukocyte Esterase 3+ A, Urine WBC Tntc 03/27/25 02:27: Troponin I < 0.01 03/27/25 05:46: WBC 7.6, RBC 3.48 L, Hgb 11.4 L, Hct 33.6 L, MCV 96.6, MCH 32.8 H, MCHC 33.9, RDW 12.4, Plt Count 334, MPV 9.7, Neut % (Auto) 48.1, Lymph % (Auto) 38.4, [place] % (Auto) 8.5, Eos % (Auto) 2.1, Baso % (Auto) 0.8, Neut # (Auto) 3.7, Lymph # (Auto) 2.9, [place] # (Auto) 0.7, Eos # (Auto) 0.2, Baso # (Auto) 0.1, Sodium 128 L, Potassium 4.0, Chloride 94 L, Carbon Dioxide 26, Anion Gap 12.0, BUN 29 H, Creatinine 1.10 H, Estimated Creat Clear 47, Estimated GFR 50 L, Est GFR ( Amer) 60, Glucose 99, Calcium 9.0, Magnesium 1.8 D, Total Bilirubin 0.3, AST 24, ALT 24, Alkaline Phosphatase 40, Total Protein 6.0 L, Albumin 3.7 D, Globulin 2.3, Albumin/Globulin Ratio 1.6 I & O for Last 24 hours: Intake & Output 03/24/25 03/25/25 03/26/25 03/27/25 23:59 23:59 23:59 23:59 Intake Total 1206.667 / 1206.667 Balance 1206.667 / 1206.667 Weight 136.078 kg 105.404 kg Constitutional Constitutional: no acute distress, obese, chronically ill appearing and cooperative *Routine HEENT Exam Head: Present normocephalic Eye: Present EOMI and PERRL ENT: Present mucous membranes moist *Routine Neck Exam Neck: Present supple; Absent lymphadenopathy *Routine Respiratory Exam Respiratory: Present CTA bilaterally, distant breath sounds and normal respiratory effort; Absent wheezes *Routine Cardiovascular Exam Cardiovascular: Present RRR *Routine Abdominal Exam Abdominal: Present soft, normoactive bowel sounds and obese; Absent tenderness *Routine Rectal Exam Patient deferred: visual exam *Routine Exam Patient deferred: external exam *Routine Extremities Exam Extremities: Present pallor; Absent cyanosis, clubbing or edema *Routine Skin Exam Skin: Present warm; Absent rash *Routine Neurological Exam Neurological: Present alert, oriented X3 and normal speech Routine Psychiatric Exam Comments: Flat affect Results Data Completed and Pending Labs on day of discharge: Labs from last 24 hours 03/27/25 03/27/25 03/26/25 05:46 02:27 23:41 WBC 7.6 RBC 3.48 L Hgb 11.4 L Hct 33.6 L MCV 96.6 MCH 32.8 H MCHC 33.9 RDW 12.4 Plt Count 334 MPV 9.7 Neut % (Auto) 48.1 Lymph % (Auto) 38.4 [place] % (Auto) 8.5 Eos % (Auto) 2.1 Baso % (Auto) 0.8 Neut # (Auto) 3.7 Lymph # (Auto) 2.9 [place] # (Auto) 0.7 Eos # (Auto) 0.2 Baso # (Auto) 0.1 Sodium 128 L Potassium 4.0 Chloride 94 L Carbon Dioxide 26 Anion Gap 12.0 BUN 29 H Creatinine 1.10 H Estimated Creat Clear 47 Estimated GFR 50 L Est GFR ( Amer) 60 Glucose 99 Calcium 9.0 Magnesium 1.8 D Total Bilirubin 0.3 AST 24 ALT 24 Alkaline Phosphatase 40 Troponin I < 0.01 Total Protein 6.0 L Albumin 3.7 D Globulin 2.3 Albumin/Globulin Ratio 1.6 Lipase Urine Color Yellow Urine Appearance Sl cloudy Urine pH 7.0 Ur Specific [place] 1.010 Urine Protein Negative Urine Glucose (UA) Negative Urine Ketones Negative Urine Blood Trace-i Urine Nitrate Negative Urine Bilirubin Negative Urine Urobilinogen 0.2 Ur Leukocyte Esterase 3+ A Urine WBC Tntc 03/26/25 03/26/25 22:41 20:42 WBC 9.2 RBC 3.82 L Hgb 12.3 Hct 36.3 L MCV 95.0 MCH 32.2 H MCHC 33.9 RDW 12.1 Plt Count 381 MPV 9.5 Neut % (Auto) 53.3 Lymph % (Auto) 33.8 [place] % (Auto) 9.0 Eos % (Auto) 1.6 Baso % (Auto) 0.7 Neut # (Auto) 4.9 Lymph # (Auto) 3.1 [place] # (Auto) 0.8 Eos # (Auto) 0.2 Baso # (Auto) 0.1 Sodium 127 L Potassium 4.5 Chloride 92 L Carbon Dioxide 28 Anion Gap 11.5 BUN 28 H Creatinine 1.00 Estimated Creat Clear 50 Estimated GFR 55 L Est GFR ( Amer) 67 Glucose 107 H Calcium 10.0 Magnesium 1.5 L Total Bilirubin 0.5 AST 27 ALT 26 Alkaline Phosphatase 43 Troponin I < 0.01 < 0.01 Total Protein 6.9 D Albumin 4.3 Globulin 2.6 Albumin/Globulin Ratio 1.7 Lipase 151 Urine Color Urine Appearance Urine pH Ur Specific [place] Urine Protein Urine Glucose (UA) Urine Ketones Urine Blood Urine Nitrate Urine Bilirubin Urine Urobilinogen Ur Leukocyte Esterase Urine WBC DS: Diagnosis Discharge Diagnosis (1) Recurrent UTI: Status: Acute Code(s): N39.0 - Urinary tract infection, site not specified (2) Atypical chest pain: Status: Acute Code(s): R07.89 - Other chest pain (3) Hypomagnesemia: Status: Acute Code(s): E83.42 - Hypomagnesemia (4) Pressure ulcer: Status: Acute Code(s): L89.90 - Pressure ulcer of unspecified site, unspecified stage Qualifiers: Laterality: left Pressure injury location: heel Pressure injury stage: stage 3 Qualified Code(s): L89.623 - Pressure ulcer of left heel, stage 3 (5) Schizoaffective disorder, unspecified: Status: Chronic Code(s): F25.9 - Schizoaffective disorder, unspecified Qualifiers: Schizoaffective disorder type: unspecified Qualified Code(s): F25.9 - Schizoaffective disorder, unspecified (6) HTN (hypertension): Status: Chronic Code(s): I10 - Essential (primary) hypertension Qualifiers: Hypertension type: unspecified Qualified Code(s): I10 - Essential (primary) hypertension (7) CAD in [place] artery: Status: Chronic Code(s): I25.10 - Atherosclerotic heart disease of [place] coronary artery without angina pectoris (8) Hyperlipidemia: Status: Acute Code(s): E78.5 - Hyperlipidemia, unspecified Qualifiers: Hyperlipidemia type: mixed hyperlipidemia Qualified Code(s): E78.2 - Mixed hyperlipidemia (9) Mild dehydration: Status: Acute Code(s): E86.0 - Dehydration Meds Home Medications and Allergies Home Medications ?Medication ?Instructions ?Recorded ?Confirmed ?Type acetaminophen 500 mg tablet 500 mg PO Q6HP PRN Pain 03/27/25 History ferrous sulfate 325 mg (65 mg 325 mg PO TID Supplement 04/17/20 03/27/25 History iron) tablet fludrocortisone 0.1 mg tablet 0.1 mg PO DAILY Adrenal disease 04/17/20 03/27/25 History omeprazole 20 mg tablet,delayed 20 mg PO DAILY acid re flux 04/17/20 03/27/25 History release ondansetron HCl 4 mg tablet 4 mg PO TIDP PRN Nausea 03/27/25 History polyethylene glycol 3350 17 gram 17 gm PO DAILY CONSTI PATION 10/12/20 03/27/25 History oral powder packet albuterol sulfate 90 mcg/actuation 2 inh inhalation Q6 HP PRN 03/13/21 03/27/25 History aerosol inhaler shortness of breath or wheez ing bisacodyl 10 mg rectal suppository 10 mg IA DAILYP PRN Constipation 03/14/21 03/27/25 History linaclotide 290 mcg capsule 290 mcg PO HS Irritable flip wel 04/27/22 03/27/25 History (Linzess) syndrome bethanechol chloride 25 mg tablet 25 mg PO QID bladder control 30 04/29/22 03/27/25 Rx days #0 tabs aripiprazole 300 mg suspension, 300 mg IM MONTHLY 12/1503/27/25 History extended rel. intramuscular syringe (Brandon Mcclellan) cetirizine 10 mg tablet (Zyrtec) 10 mg PO DAILY 03/27/25 History azelastine 137 mcg (0.1 %) nasal 1 spray intranasal BI D 04/18/23 03/27/25 History spray loperamide 2 mg capsule 2 mg PO Q6H PRN Diarrhea 10/0403/27/25 History meclizine 12.5 mg tablet 12.5 mg PO BIDP Dizziness 03/27/25 History montelukast 10 mg tablet 10 mg PO HS 04/18/23 5 History (Singulair) peg [id number] 1 1 drp ophthalmic (eye) Q6HP PRN 04/18/23 03/27/25 History %-0.2 %-0.2 % eye drops dry eye(s) (Artificial Tears ([id number])) divalproex 500 mg tablet,delayed 500 mg PO BID 4 03/27/25 History release fluticasone furoate 100 1 inh inhalation DAILY #60 e a 07/26/23 03/27/25 Rx mcg-vilanterol 25 mcg/dose inhalation powder (Breo Ellipta) potassium chloride 20 mEq 20 meq PO DAILY 08/08/23 History tablet,extended release magnesium oxide 400 mg PO DAILY #14 tabs 03/27/25 Rx aspirin 81 mg tablet,delayed 81 mg PO DAILY 02/16/24 1 05/27/24 History release atorvastatin 20 mg tablet (Lipitor) 20 mg PO HS 03/27/25 History furosemide 40 mg tablet 40 mg PO DAILY 02/16/2403/15 History metoprolol succinate 25 mg 12.5 mg PO HS 02/16/2403/15 History tablet,extended release 24 hr (Toprol XL) fluticasone propionate 50 2 spray intranasal DAILY 05/0703/27/25 History mcg/actuation nasal spray,suspension (Flonase Allergy Relief) magnesium hydroxide 400 mg/5 mL 30 ml PO DAILY PRN Ind igestion 03/26/24 03/27/25 History oral suspension (Milk of Magnesia) phenazopyridine 95 mg tablet (Azo 190 mg PO TID PRN UT I symptoms 03/26/24 03/27/25 History Urinary Pain Relief) guaifenesin 100 mg/5 mL oral 200 mg PO Q4H PRN Cough 0 05/30/24 03/27/25 History liquid (Robafen) cholecalciferol (vitamin D3) 125 125 mcg PO DAILY 05/1603/27/25 History mcg (5,000 unit) capsule icosapent ethyl 1 gram capsule 2 g PO BID 06/04/24 History (Vascepa) sucralfate 1 gram tablet 1 g PO BID 06/04/24 03/27/25 History terazosin 10 mg capsule 10 mg PO HS 06/04/24 5 History venlafaxine 150 mg 150 mg PO DAILY 06/04/24 History capsule,extended release 24 hr sennosides 8.6 mg tablet (senna) 17.2 mg PO BID 03/27/25 History cranberry fruit 450 mg tablet 900 mg PO DAILY 09/19/24 03/27/25 History fenofibrate nanocrystallized 145 145 mg PO DAILY 09/1903/27/25 History mg tablet lisinopril 5 mg tablet 5 mg PO DAILY 12/19/2403/27 History metformin 500 mg tablet 500 mg PO BID 12/19/2403/27 History lactulose 10 gram/15 mL oral 30 ml PO DAILY PRN Consti pation 01/16/25 03/27/25 History solution gabapentin 300 mg capsule 300 mg PO TID #90 caps 03/0103/27/25 Rx ipratropium 0.5 mg-albuterol 3 mg 3 ml inhalation Q6H PRN soa 03/18/25 03/27/25 History (2.5 mg base)/3 mL nebulization soln New Prescriptions to Start Prescriptions: Allergies Allergy/AdvReac Type Severity Reaction Status Date / Time aspirin Allergy Unknown Unknown Verified 03/18/25 11:07 allergy reaction azithromycin Allergy Unknown Unknown Verified 03/18/25 11:07 allergy reaction bupropion (From Wellbutrin Allergy Unknown Unknown Verified 03/18/25 11:07 SR) allergy reaction levofloxacin (From Levaquin) Allergy Unknown Unknown Verified 03/18/25 11:07 allergy reaction erythromycin base AdvReac Unknown Unknown Verified 03/18/25 11:07 allergy reaction tramadol AdvReac Unknown Unknown Verified 03/18/25 11:07 allergy reaction influenza vaccine AdvReac Unknown Unknown Uncoded 01/16/25 11:46 allergy reaction Discharge Plan Disposition Patient Disposition: er Intermediate Care Fac Condition: Fair Discharge Order Discharge Orders: Discharge Order (Routine); Ordered 03/27/25 Ordered By: Yazmin Conner Follow up Plan Follow up with: Francis Hearn MD [Primary Care Provider, [facility]] - Enter time for follow up Prescriptions/Medication Reconciliation: Continued fenofibrate nanocrystallized 145 mg tablet 145 mg PO DAILY cranberry fruit 450 mg tablet 900 mg PO DAILY Rx Instructions: administer with a meal metformin 500 mg tablet 500 mg PO BID lisinopril 5 mg tablet 5 mg PO DAILY ipratropium-albuterol 0.5 mg-3 mg(2.5 mg base)/3 mL solution for nebulization 3 ml inhalation Q6H PRN (Reason: soa) cetirizine [Zyrtec] 10 mg tablet 10 mg PO DAILY Abilify Maintena 300 mg suspension,extended rel syring 300 mg IM MONTHLY divalproex 500 mg tablet,delayed release (DR/EC) 500 mg PO BID potassium chloride 20 mEq tablet extended release 20 meq PO DAILY phenazopyridine [Azo Urinary Pain Relief] 95 mg tablet 190 mg PO TID PRN (Reason: UTI symptoms) guaifenesin [Robafen] 100 mg/5 mL liquid 200 mg PO Q4H PRN (Reason: Cough) magnesium hydroxide [Milk of Magnesia] 400 mg/5 mL suspension 30 ml PO DAILY PRN (Reason: Indigestion) fluticasone propionate [Flonase Allergy Relief] 50 mcg/actuation spray,suspension 2 spray intranasal DAILY Rx Instructions: administer into each nostril sucralfate 1 gram tablet 1 g PO BID venlafaxine 150 mg capsule,extended release 24hr 150 mg PO DAILY terazosin 10 mg capsule 10 mg PO HS cholecalciferol (vitamin D3) 125 mcg (5,000 unit) capsule 125 mcg PO DAILY icosapent ethyl [Vascepa] 1 gram capsule 2 g PO BID lactulose 10 gram/15 mL solution 30 ml PO DAILY PRN (Reason: Constipation) sennosides [senna] 8.6 mg tablet 17.2 mg PO BID Artificial Tears([id number]) 1-0.2-0.2 % drops 1 drp ophthalmic (eye) Q6HP PRN (Reason: dry eye(s)) Rx Instructions: each eye loperamide 2 mg capsule 2 mg PO Q6H PRN (Reason: Diarrhea) meclizine 12.5 mg tablet 12.5 mg PO BIDP azelastine 137 mcg (0.1 %) aerosol,spray 1 spray intranasal BID Rx Instructions: administer into each nostril montelukast [Singulair] 10 mg tablet 10 mg PO HS fluticasone furoate-vilanterol [Breo Ellipta] 100-25 mcg/dose blister with device 1 inh inhalation DAILY Qty: 60 2RF magnesium oxide 400 mg magnesium tablet 400 mg PO DAILY Qty: 14 0RF gabapentin 300 mg capsule 300 mg PO TID Qty: 90 5RF polyethylene glycol 3350 17 GM powder in packet 17 gm PO DAILY albuterol sulfate 8.5 GM HFA aerosol inhaler 2 inh IH Q6HP PRN (Reason: shortness of breath or wheezing) bisacodyl 10 MG suppository 10 mg RC DAILYP PRN (Reason: Constipation) Linzess 290 mcg Capsule 290 mcg PO HS bethanechol chloride 25 MG tablet 25 mg PO QID 30 Days Qty: 0 0RF furosemide 40 mg tablet 40 mg PO DAILY aspirin 81 mg Tablet,Delayed Release (Dr/Ec) 81 mg PO DAILY atorvastatin [Lipitor] 20 mg tablet 20 mg PO HS metoprolol succinate [Toprol XL] 25 mg tablet extended release 24 hr 12.5 mg PO HS Rx Instructions: take 0.5 tablet daily ondansetron HCl 4 MG tablet 4 mg PO TIDP PRN (Reason: Nausea) acetaminophen 500 MG tablet 500 mg PO Q6HP PRN (Reason: Pain) ferrous sulfate 325 MG tablet 325 mg PO TID omeprazole 20 MG tablet,delayed release (DR/EC) 20 mg PO DAILY fludrocortisone 0.1 MG tablet 0.1 mg PO DAILY Discontinued cefdinir 300 mg capsule 300 mg PO BID Qty: 14 0RF Rx Instructions: started 03/23 - administer for 7 days Problem Reconciliation Problems Reviewed?: Yes Patient Discharge Instructions ACTIVITY: Continue current activity and Up with assistance DIET: continue same diet Patient Instructions: DI for Urinary Tract Infection (UTI) Print Language: Bangladeshi Providers Primary Care Provider: Francis Hearn Admit Provider: Davi Mckay Attending Provider: Davi Mckay
[2025-03-27 12:19] LABS: VBG HCO3 26.3 mmol/L (23-30); VBG PCO2 44.3 mmol/L (35-51); VBG PH 7.39 mmol/L (7.31-7.41); VBG PO2 188.7 mmol/L (28-40)
[2025-03-27 12:20] LABS: Lactate Venous 2.3 mmol/L (0.4-2.0)
[2025-03-27] MEDS: ERTAPENEM SODIUM 1 GM in 0.9 % SODIUM CHLORIDE 50 ML IV (12:27)
[2025-03-27 16:20] LABS: Reflex Lactic Add Lactic Reflex
--- NOTE | 2025-03-29 08:08 | PC.NURSE ---
Urine culture results forwarded to hospitalist.
== END 2025-03-27 16:24 ==
LOC: ER 03-27 01:01 → 2ND 03-27 01:10
PROVIDERS: Nurse Practitioner; Nurse Practitioner Acute Care; Admitting Provider Internal Medicine Adolescent Medicine; Emergency Provider Student in an Organized Health Care Education/Training Program; PCP Family Medicine; Visit Provider Internal Medicine Adolescent Medicine
DX: N39.0 Urinary tract infection, site not specified (principal); R07.89 Other chest pain; E83.42 Hypomagnesemia; L89.623 Pressure ulcer of left heel, stage 3; F25.9 Schizoaffective disorder, unspecified; I25.10 Atherosclerotic heart disease of native coronary artery without angina pectoris; E78.2 Mixed hyperlipidemia; E86.0 Dehydration; I11.0 Hypertensive heart disease with heart failure; I50.9 Heart failure, unspecified; J44.9 Chronic obstructive pulmonary disease, unspecified; F32.A Depression, unspecified; K21.9 Gastro-esophageal reflux disease without esophagitis; G43.909 Migraine, unspecified, not intractable, without status migrainosus; E66.9 Obesity, unspecified; Z68.37 Body mass index [BMI] 37.0-37.9, adult; G47.33 Obstructive sleep apnea (adult) (pediatric); Z90.710 Acquired absence of both cervix and uterus; Z90.49 Acquired absence of other specified parts of digestive tract; Z56.0 Unemployment, unspecified; Z88.1 Allergy status to other antibiotic agents; Z88.5 Allergy status to narcotic agent; Z88.7 Allergy status to serum and vaccine; Z79.899 Other long term (current) drug therapy; Z79.84 Long term (current) use of oral hypoglycemic drugs; Z79.82 Long term (current) use of aspirin; E11.9 Type 2 diabetes mellitus without complications
CPT/HCPCS: 36415; 71045; 80053; 81001; 82803; 83690; 83735; 84484; 85025; 87040; 87086; 87088; 87186; 93005; 94640; 97162; 97165; 99285; G0378; J0696; J1308; J1335; J1650; J2270; J2405; J3475; J7030

== ENCOUNTER 2025-04-02 07:13 | Outpatient (CLI) | payer MEDICARE, MEDICAID, SELFPAY ==
--- OUTSIDE RECORDS SUMMARY | 2025-04-02 07:15 | XMS_ITS | Clinical Summary ---
Author Organization [facility] Address [address] [place] [address] Phone Care Team Providers Care Wire Steward Name Role Phone Unavailable Primary Care Provider [...] Exam Medicare 1963 Hepatitis C Screening 1977 Breast Cancer Screening 1999 Cologuard 2004 Colon [...] patient's age to complete this topic Insurance MEDICARE [place] PART [place] B [place]ID [place]
[2025-04-02 07:46] LABS: Anion Gap 8.6 mEq/L (5-15); Blood Urea Nitrogen 25 mg/dl (7-17); Calcium 9.5 mg/dl (8.4-10.2); Carbon Dioxide 29 mmol/L (22.0-30.0); Chloride 94 mmol/L (98-107); Creatinine,Serum 0.90 mg/dl (0.52-1.04); Estimated Glomerular Filt Rate 63 ml/min (>60); GFR (African American) 76 ML/MIN (>60); Glucose 105 mg/dl (74-100); Potassium 4.6 mmoL/L (3.5-5.1); Sodium 127 mmol/L (136-145)
== END 2025-04-02 23:59 | disposition home or self-care (01) ==
LOC: LAB.DROPOF 07:13
PROVIDERS: PCP Family Medicine; Visit Provider Nurse Practitioner Family
DX: E86.0 Dehydration (principal)
CPT/HCPCS: 36415; 80048

== ENCOUNTER 2025-04-21 09:05 | Outpatient (CLI) | payer MEDICARE, MEDICAID, SELFPAY ==
[2025-04-21 09:54] LABS: Anion Gap 11.8 mEq/L (5-15); Blood Urea Nitrogen 37 mg/dl (7-17); Calcium 9.7 mg/dl (8.4-10.2); Carbon Dioxide 29 mmol/L (22.0-30.0); Chloride 95 mmol/L (98-107); Creatinine,Serum 1.10 mg/dl (0.52-1.04); Estimated Glomerular Filt Rate 50 ml/min (>60); GFR (African American) 60 ML/MIN (>60); Glucose 69 mg/dl (74-100); Potassium 4.8 mmoL/L (3.5-5.1); Sodium 131 mmol/L (136-145)
[2025-04-21 09:58] LABS: Valproic Acid, (Depakene) 30.4 ug/ml (50-100)
== END 2025-04-21 23:59 | disposition home or self-care (01) ==
LOC: LAB.DROPOF 09:05
PROVIDERS: PCP Family Medicine; Visit Provider Family Medicine
DX: E87.1 Hypo-osmolality and hyponatremia (principal); Z51.81 Encounter for therapeutic drug level monitoring
CPT/HCPCS: 36415; 80048; 80164

== ENCOUNTER 2025-05-05 09:04 | Inpatient (IN) | payer MEDICARE, MEDICAID, SELFPAY ==
[2025-05-05] VITALS (11 sets, daily range): BP systolic 99–137; BP diastolic 55–77; PULSE 78–100; RESP 14–23; TEMP 36.7–37.3; O2SAT 90–100; BMI 39.6
--- NOTE | 2025-05-05 09:00 | CT_ITS ---
PROCEDURE INFORMATION: Exam: CT Abdomen And Pelvis With Contrast Exam date and time: 05/05/2025 9:49 AM Age: 65 years old Clinical indication: Abdominal pain; Generalized; Additional info: Low BP abd pain TECHNIQUE: Imaging protocol: Computed tomography of the abdomen and pelvis with contrast. Radiation optimization: All CT scans at this facility use at least one of these dose optimization techniques: automated exposure control; mA and/or kV adjustment per patient size (includes targeted exams where dose is matched to clinical indication); or iterative reconstruction. Contrast material: ISOVUE; Contrast volume: 80 ml; Contrast route: IV; COMPARISON: CT ABDOMEN PELVIS W CON 01/06/2025 11:19 PM FINDINGS: Lungs: Moderate patchy opacities in both lung bases likely represent atelectasis or infection. Liver: Normal. No mass. Gallbladder and biliary ducts: Cholecystectomy clips are seen. Pancreas: Normal. No ductal dilation. Spleen: Normal. No splenomegaly. Adrenal glands: Normal. No mass. Kidneys and ureters: Hypodensity measuring 2 cm in the midpole of the left kidney may represent infection. Malignancy is not entirely excluded. Stomach and bowel: Unremarkable. No obstruction. No mucosal thickening. Appendix: No evidence of appendicitis. Intraperitoneal space: No evidence of free air in the abdomen. Vasculature: Unremarkable. No abdominal aortic aneurysm. Lymph nodes: Unremarkable. No enlarged lymph nodes. Urinary bladder: Unremarkable as visualized. Reproductive: Unremarkable as visualized. Bones/joints: Unremarkable. No acute fracture. Soft tissues: Neurotransmitter in the posterior left abdominal wall. IMPRESSION: 1. Hypodensity measuring 2 cm in the midpole of the left kidney may represent infection. Malignancy is not entirely excluded. Correlate with urinalysis. MRI can be obtained if clinically indicated. 2. Moderate patchy opacities in both lung bases likely represent atelectasis or infection. COMMENTS: Consistent with the [employer]'s Incidental Findings Committee white paper (J Am Rubi Radiol 2018): Any incidental renal lesion less than 1 cm or classified as too small to characterize, or any incidental cystic renal lesion characterized as simple-appearing, is likely benign. No follow-up imaging is recommended for these lesions per consensus recommendations based on imaging criteria.
--- NOTE | 2025-05-05 09:00 | ECG_ITS ---
APPROVED REPORT Exam: Resting ECG HR:93 bpm ECG Measurements Heart Rate 93 AXES MT 176 P 67 QRSd 110 QRS 25 QT 344 T 64 QTc 394 Conclusion SINUS RHYTHM WITH OCCASIONAL VENTRICULAR PREMATURE COMPLEXES BORDERLINE ECG Electronically signed by : IRENE PUCKETT, 05/08/2025 07:14:56
--- NOTE | 2025-05-05 09:00 | CT_ITS ---
PROCEDURE INFORMATION: Exam: CT Head Without Contrast Exam date and time: 05/05/2025 9:39 AM Age: 65 years old Clinical indication: Speech disturbance and weakness, extremity; Other: Slow to speak; Additional info: Encephalopathy, slow to speak TECHNIQUE: Imaging protocol: Computed tomography of the head without contrast. Radiation optimization: All CT scans at this facility use at least one of these dose optimization techniques: automated exposure control; mA and/or kV adjustment per patient size (includes targeted exams where dose is matched to clinical indication); or iterative reconstruction. COMPARISON: CT HEAD/BRAIN WO CON 02/16/2024 9:04 AM FINDINGS: Brain: No acute lobar infarct. No hemorrhage. Patchy white matter hypodensity likely represents chronic microvascular ischemic change. No mass effect. Cerebral ventricles: No ventriculomegaly. Paranasal sinuses: The patient is post bilateral maxillary antrostomy and partial internal ethmoidectomy, middle and inferior turbinectomies as well as left sphenoethmoidectomy. Patchy mucosal thickening is noted within ethmoid air cells and sphenoid sinuses. Mastoid air cells: Visualized mastoid air cells are well aerated. Bones: Unremarkable. No acute fracture. Soft tissues: Unremarkable. IMPRESSION: No acute intracranial process.
--- NOTE | 2025-05-05 09:00 | CT_ITS ---
PROCEDURE INFORMATION: Exam: CTA Chest With Contrast Exam date and time: 05/05/2025 9:49 AM Age: 65 years old Clinical indication: Other: Hypoxic, low BP TECHNIQUE: Imaging protocol: Computed tomographic angiography of the chest with contrast. Exam focused on the arteries. 3D rendering (Not supervised by radiologist): MIP and/or 3D reconstructed images were created by the technologist. Radiation optimization: All CT scans at this facility use at least one of these dose optimization techniques: automated exposure control; mA and/or kV adjustment per patient size (includes targeted exams where dose is matched to clinical indication); or iterative reconstruction. Contrast material: ISOVUE 370; Contrast volume: 80 ml; Contrast route: INTRAVENOUS (IV); COMPARISON: CT ANGIO CHEST PE PROTOCOL 03/15/2021 9:49 AM FINDINGS: Pulmonary arteries: The main pulmonary artery at the level of the right pulmonary artery measures 2.4 cm. No evidence of acute pulmonary embolism upto the subsegmental level. Aorta: The ascending aorta at the level of the right pulmonary artery measures 3 cm. Lungs: Diffuse patchy and ground-glass opacities in both lungs likely represents edema or infection. Nodule measuring 7 mm in the lingula is stable since the prior study series 7, image 62. Nodule measuring 3.4 mm in lingula is stable since the prior study series 7, image 59. Nodule measuring 4 mm along the right horizontal fissure is stable since the prior study series 7, image 58. Noted measuring 3 mm in the left upper lobe is stable since the prior study series 7, image 34. Right perihilar density likely representing infection is again noted. Pleural spaces: Unremarkable. No pneumothorax. No pleural effusion. Heart: Unremarkable. No cardiomegaly. No pericardial effusion. Lymph nodes: Mildly enlarged right hilar lymph node measuring 1.2 cm is likely reactive. Gallbladder and biliary ducts: Cholecystectomy clips are seen. Bones/joints: Unremarkable. No acute fracture. Soft tissues: Unremarkable. IMPRESSION: 1. No evidence of acute pulmonary embolism upto the subsegmental level. 2. Diffuse patchy and ground-glass opacities in both lungs likely represents edema or infection. 3. Lung nodule largest measuring 7 mm are stable since the prior study. 4. Mildly enlarged right hilar lymph node measuring 1.2 cm is likely reactive.
--- NOTE | 2025-05-05 09:01 | PC.NURSE ---
This RN calls and spoke with primary rn at [facility]. Per RN patient LKN was 9:30PM, staff attempted to get patient up for breakfast and patient was noted to be altered. Pt was could only hold her eyes open briefly. STAIN DIPPER examined patient and requested pt be sent to the ER for evaluation. Pt was noted to feel warm, but did not have a fever. BP was 101/60, BGL 153. Per staff pt is a full code
--- NOTE | 2025-05-05 09:05 | [facility].EDGENADL ---
Discharge Plan Disposition Patient Disposition: Admitted Prescriptions Prescriptions: No Action fenofibrate nanocrystallized 145 mg tablet 145 mg PO DAILY cranberry fruit 450 mg tablet 900 mg PO DAILY Rx Instructions: administer with a meal metformin 500 mg tablet 500 mg PO BID lisinopril 5 mg tablet 5 mg PO DAILY ipratropium-albuterol 0.5 mg-3 mg(2.5 mg base)/3 mL solution for nebulization 3 ml inhalation Q6H PRN (Reason: soa) cetirizine [Zyrtec] 10 mg tablet 10 mg PO DAILY Abilify Maintena 300 mg suspension,extended rel syring 300 mg IM MONTHLY divalproex 500 mg tablet,delayed release (DR/EC) 500 mg PO BID potassium chloride 20 mEq tablet extended release 20 meq PO DAILY guaifenesin [Robafen] 100 mg/5 mL liquid 200 mg PO Q4H PRN (Reason: Cough) fluticasone propionate [Flonase Allergy Relief] 50 mcg/actuation spray,suspension 2 spray intranasal DAILY Rx Instructions: administer into each nostril sucralfate 1 gram tablet 1 g PO BID venlafaxine 150 mg capsule,extended release 24hr 150 mg PO DAILY terazosin 10 mg capsule 10 mg PO HS icosapent ethyl [Vascepa] 1 gram capsule 2 g PO BID lactulose 10 gram/15 mL solution 30 ml PO DAILY PRN (Reason: Constipation) sennosides [senna] 8.6 mg tablet 17.2 mg PO BID ascorbic acid (vitamin C) [Vitamin C] 500 mg tablet 500 mg PO DAILY Artificial Tears([id number]) 1-0.2-0.2 % drops 1 drp ophthalmic (eye) Q6HP PRN (Reason: dry eye(s)) Rx Instructions: each eye loperamide 2 mg capsule 2 mg PO Q6H PRN (Reason: Diarrhea) meclizine 12.5 mg tablet 12.5 mg PO BIDP azelastine 137 mcg (0.1 %) aerosol,spray 1 spray intranasal BID Rx Instructions: administer into each nostril montelukast [Singulair] 10 mg tablet 10 mg PO HS magnesium oxide 400 mg magnesium tablet 400 mg PO DAILY Qty: 14 0RF gabapentin 300 mg capsule 300 mg PO TID Qty: 90 5RF polyethylene glycol 3350 17 GM powder in packet 17 gm PO DAILY albuterol sulfate 8.5 GM HFA aerosol inhaler 2 inh IH Q6HP PRN (Reason: shortness of breath or wheezing) bisacodyl 10 MG suppository 10 mg RC DAILYP PRN (Reason: Constipation) Linzess 290 mcg Capsule 290 mcg PO HS bethanechol chloride 25 MG tablet 25 mg PO QID 30 Days Qty: 0 0RF furosemide 40 mg tablet 40 mg PO DAILY aspirin 81 mg Tablet,Delayed Release (Dr/Ec) 81 mg PO DAILY atorvastatin [Lipitor] 20 mg tablet 20 mg PO HS metoprolol succinate [Toprol XL] 25 mg tablet extended release 24 hr 12.5 mg PO HS Rx Instructions: take 0.5 tablet daily acetaminophen 500 MG tablet 500 mg PO Q6HP PRN (Reason: Pain) ferrous sulfate 325 MG tablet 325 mg PO TID omeprazole 20 MG tablet,delayed release (DR/EC) 20 mg PO DAILY fludrocortisone 0.1 MG tablet 0.1 mg PO DAILY ondansetron HCl [Zofran] 4 mg Tablet 4 mg PO Q8H PRN (Reason: nausea) magnesium hydroxide [Milk of Magnesia] 400 mg/5 mL Suspension 400 mg PO DAILY phenazopyridine [Azo] 95 mg Tablet 95 mg PO TID PRN (Reason: muscle spasm) cholecalciferol (vitamin D3) [Vitamin D3] 125 mcg (5,000 unit) Tablet 125 mcg PO DAILY fluticasone furoate-vilanterol [Breo Ellipta] 100-25 mcg/dose Blister With Device 1 inh INHALATION DAILY Referrals Follow up/Referrals: Francis Hearn MD [Primary Care Provider, Family Practice] - See instructions Clinical Impressions Clinical Impression: UTI (urinary tract infection), Pneumonia, Hypoxic respiratory failure, Abnormal finding on diagnostic imaging of kidney, Encephalopathy Instructions Patient Instructions: DI for Altered Mental Status Print Language Print Language: Portuguese Discharge ED Provider: Renan Muñoz General Adult HPI General Chief complaint: Altered Mental Status Stated complaint: Low Blood Pressure Time Seen by Provider: 05/05/25 09:04 History of Present Illness HPI narrative: Patient is a 65-year-old female with multiple comorbidities including recurrent urinary tract infections, hypertension, COPD not on oxygen at baseline, previous pancreatitis, CHF, seizure disorder on Depakote, previous CVA with left-sided residual who presents emergency department for evaluation of encephalopathy. History is obtained by patient, EMS, [facility]. Patient was in her normal state of health yesterday when reportedly this morning she was more difficult to arouse and slower to speech causing them to become concerned to present here for continued evaluation. No trauma. Patient normally has conversational baseline. She has chronic lymphedema of both her lower extremities. En route blood pressure was 80s over 50s. Patient is complaining of abdominal pain but denies chest pain. She is slow to speech but can answer questions when given repeatedly. No other acute complaints at this time. Please note that above description of symptoms, in this electronic medical record under categorization of recalled from ER triage doctor by RN are reflective of an initial nursing assessment, however, is not reflective of my full history and physical exam that was personally taken and clarified. Consequentially, this preceding description of symptoms, which may include the patient's categorized chief complaint in the EMR, do not reflect my personal clinical impression, and the ultimate description of history of present illness and patient stated complaints should be deferred to this section of the note. Unless stated otherwise or congruent with this section of the note, additional signs, symptoms, or incongruence should be interpreted as inaccurate with my clinical impression. Related Data Home Medications ?Medication ?Instructions ?Recorded ?Confirmed acetaminophen 500 mg tablet 500 mg PO Q6HP PRN Pain 04/17/20 05/05/25 ferrous sulfate 325 mg (65 mg 325 mg PO TID Supplement 04/17/20 05/05/25 iron) tablet fludrocortisone 0.1 mg tablet 0.1 mg PO DAILY Adrenal disease 04/17/20 05/05/25 omeprazole 20 mg tablet,delayed 20 mg PO DAILY acid reflux 04/17/20 05/05/25 release polyethylene glycol 3350 17 gram 17 gm PO DAILY CONSTIPATION 10/12/20 05/05/25 oral powder packet albuterol sulfate 90 mcg/actuation 2 inh inhalation Q6HP PRN 03/13/21 05/05/25 aerosol inhaler shortness of breath or wheezing bisacodyl 10 mg rectal suppository 10 mg [place] DAILYP PRN Constipation 03/14/21 05/05/25 linaclotide 290 mcg capsule 290 mcg PO HS Irritable bowel 04/27/22 05/05/25 (Linzess) syndrome aripiprazole 300 mg suspension, 300 mg IM MONTHLY 01/11/23 05/05/25 extended rel. intramuscular syringe (Brandon Mcclellan) cetirizine 10 mg tablet (Zyrtec) 10 mg PO DAILY 01/11/23 05/05/25 azelastine 137 mcg (0.1 %) nasal 1 spray intranasal BID 04/18/23 05/05/25 spray loperamide 2 mg capsule 2 mg PO Q6H PRN Diarrhea 04/18/23 05/05/25 meclizine 12.5 mg tablet 12.5 mg PO BIDP Dizziness 04/18/23 05/05/25 montelukast 10 mg tablet 10 mg PO HS 04/18/23 05/05/25 (Singulair) peg [id number] 1 1 drp ophthalmic (eye) Q6HP PRN 04/18/23 05/05/25 %-0.2 %-0.2 % eye drops dry eye(s) (Artificial Tears ([id number])) divalproex 500 mg tablet,delayed 500 mg PO BID 07/13/23 05/05/25 release potassium chloride 20 mEq 20 meq PO DAILY 08/08/23 05/05/25 tablet,extended release aspirin 81 mg tablet,delayed 81 mg PO DAILY 02/16/24 05/05/25 release atorvastatin 20 mg tablet (Lipitor) 20 mg PO HS 02/16/24 05/05/25 furosemide 40 mg tablet 40 mg PO DAILY 02/16/24 05/05/25 metoprolol succinate 25 mg 12.5 mg PO HS 02/16/24 05/05/25 tablet,extended release 24 hr (Toprol XL) fluticasone propionate 50 2 spray intranasal DAILY 03/26/24 05/05/25 mcg/actuation nasal spray,suspension (Flonase Allergy Relief) guaifenesin 100 mg/5 mL oral 200 mg PO Q4H PRN Cough 05/30/24 05/05/25 liquid (Robafen) icosapent ethyl 1 gram capsule 2 g PO BID 06/04/24 05/05/25 (Vascepa) sucralfate 1 gram tablet 1 g PO BID 06/04/24 05/05/25 terazosin 10 mg capsule 10 mg PO HS 06/04/24 05/05/25 venlafaxine 150 mg 150 mg PO DAILY 06/04/24 05/05/25 capsule,extended release 24 hr sennosides 8.6 mg tablet (senna) 17.2 mg PO BID 08/13/24 05/05/25 cranberry fruit 450 mg tablet 900 mg PO DAILY 09/19/24 05/05/25 fenofibrate nanocrystallized 145 145 mg PO DAILY 09/19/24 05/05/25 mg tablet lisinopril 5 mg tablet 5 mg PO DAILY 12/19/24 05/05/25 metformin 500 mg tablet 500 mg PO BID 12/19/24 05/05/25 lactulose 10 gram/15 mL oral 30 ml PO DAILY PRN Constipation 01/16/25 05/05/25 solution ipratropium 0.5 mg-albuterol 3 mg 3 ml inhalation Q6H PRN soa 03/18/25 05/05/25 (2.5 mg base)/3 mL nebulization soln ascorbic acid (vitamin C) 500 mg 500 mg PO DAILY 04/07/25 05/05/25 tablet (Vitamin C) cholecalciferol (vitamin D3) 125 125 mcg PO DAILY 05/05/25 05/05/25 mcg (5,000 unit) tablet (Vitamin D3) fluticasone furoate 100 1 inh inhalation DAILY 05/05/25 05/05/25 mcg-vilanterol 25 mcg/dose inhalation powder (Breo Ellipta) magnesium hydroxide 400 mg/5 mL 400 mg PO DAILY 05/05/25 05/05/25 oral suspension (Milk of Magnesia) ondansetron HCl 4 mg tablet 4 mg PO Q8H PRN nausea 05/05/25 05/05/25 phenazopyridine 95 mg tablet 95 mg PO TID PRN muscle spasm 05/05/25 05/05/25 Previous Rx's ?Medication ?Instructions ?Recorded bethanechol chloride 25 mg tablet 25 mg PO QID bladder control 30 04/29/22 days #0 tabs magnesium oxide 400 mg PO DAILY #14 tabs 09/27/23 gabapentin 300 mg capsule 300 mg PO TID #90 caps 03/01/25 Allergies Allergy/AdvReac Type Severity Reaction Status Date / Time aspirin Allergy Unknown Unknown Verified 04/07/25 10:16 allergy reaction azithromycin Allergy Unknown Unknown Verified 04/07/25 10:16 allergy reaction bupropion (From Wellbutrin Allergy Unknown Unknown Verified 04/07/25 10:16 SR) allergy reaction levofloxacin (From Levaquin) Allergy Unknown Unknown Verified 04/07/25 10:16 allergy reaction erythromycin base AdvReac Unknown Unknown Verified 04/07/25 10:16 allergy reaction tramadol AdvReac Unknown Unknown Verified 04/07/25 10:16 allergy reaction influenza vaccine AdvReac Unknown Unknown Uncoded 04/07/25 10:16 allergy reaction PFSH PFSH Disclaimer: The information contained in this section may have been updated after the patient was seen, as this information can be updated by other users. Medical History Atypical chest pain Encounter for screening for diabetes mellitus Hypomagnesemia Hypokalemia BMI 40.0-44.9, adult Herpes simplex Neurogenic bladder Urinary retention Lymphedema Pancreatitis Skin cancer Multiple pulmonary nodules Complex sleep apnea syndrome Improved from previous with a compliance equal or greater than 4 hours of 80%, AHI 4.7 Complex sleep apnea syndrome, nocturnal hypoxemia, obesity/hypoventilation. At risk for cardiovascular events. She cannot place/use her iVAPS unless she gets help from nursing staff. Schizoaffective disorder, unspecified HTN (hypertension) Recurrent UTI Colon cancer screening Cardiac dysrhythmia Noted during the night of most recent BiPAP titration (April 2023) Pure hypercholesterolemia, unspecified Seizure disorder COPD (chronic obstructive pulmonary disease) Bilateral lower extremity edema Diabetic foot Lymphedema Onychomycosis Obesity (BMI 30-39.9) LANCE (obstructive sleep apnea) Sepsis History of MRSA infection of lungs Diabetes type 2, controlled Anxiety Acute hypoxemic respiratory failure Hospital-acquired pneumonia Chronic hypercapnic respiratory failure Dysphagia Elevated left ventricular end-diastolic pressure (LVEDP) CAD in [place] artery Hyperlipidemia Vitamin D deficiency, unspecified Obstructive sleep apnea (adult) (pediatric) Acute pancreatitis without necrosis or infection, unspecified Unspecified fracture of left patella, initial encounter for closed fracture Interstitial cystitis Hx of bipolar disorder Migraine GERD (gastroesophageal reflux disease) Depression Mild persistent asthma Personal history of sarcoidosis CHF (congestive heart failure) Anemia Surgical History Status post foot surgery Status post surgical removal of malignant neoplasm of skin History of sinus surgery History of hysterectomy History of dilation and curettage History of section History of colonoscopy Hx of cholecystectomy History of tonsillectomy Family History Other CHF (congestive heart failure) Social History Smoking Status: Unknown if ever smoked alcohol intake: never substance use type: denies use current occupational status: unemployed Travel in the last 8 weeks?: None household members: caregiver housing: assisted living facility caffeine: No Have you lived/traveled outside [place] in past 30 days?: No Contact w/someone who lives/traveled outside [place] past 30 days?: No Exposure to someone with infectious disease in past 14 days?: No Do you have a fever (greater than 100.4 F or 38 C)?: No Have you tested positive for COVID-19?: No Exposed to someone with COVID-19 in past 14 days?: No Do you have a sore throat?: No Do you have a cough?: No Do you have any weakness?: No Do you have any diarrhea?: No Are you experiencing any unusual bleeding?: No Do you have any muscle aches/pain?: No Do you have any abdominal pain?: No Are you experiencing loss of taste or smell?: No Other Medical History Have you received the Flu Vaccine for this season: No Have you received the Pneumonia Vaccine: Yes (08/19/24) ROS Obtained: Yes Systems reviewed as appropriate & no additional complaints except as documented Physical Exam General General appearance: alert and in no apparent distress Head Head exam: atraumatic and normocephalic Eye Eye exam: Present PERRL and EOMI ENT ENT exam: Present mucous membranes moist Neck Neck exam: Present normal inspection Chest Chest inspection: Present normal inspection and symmetric chest wall rise Respiratory Respiratory exam: Present normal lung sounds bilaterally; Absent respiratory distress Cardiovascular Cardiovascular exam: Present regular rate and normal rhythm Abdominal Exam Abdominal exam: Present soft and distention (Mild); Absent tenderness or rigidity Extremities Exam Extremities exam: Present other (Symmetrically swollen bilateral lower extremities without discoloration) Neurological Exam Neurological exam: Present alert and other (Left upper extremity left lower extremity right upper extremity 4 out of 5 strength, right lower extremity 3 out of 5 strength.) Psychiatric Psychiatric exam: Present normal affect Skin Skin exam: Present warm and dry Medical Decision Making Medical Records Screening: Per USPSTF and CDC recommendations, given the prevalence of disease in our region, it is our hospital?s policy to screen for HIV and viral Hepatitis for all patients aged 18 and over and those with ongoing risk factors. [place] Inquiry Pt receiving controlled substance: No Vital Signs: 05/05/25 09:04 05/05/25 09:30 05/05/25 10:00 Temperature 99.2 F Temperature Source Oral Pulse Rate 85 Pulse Rate [Right Brachial] 90 Respiratory Rate 15 21 16 Blood Pressure 118/67 137/74 Blood Pressure [Right Arm] 129/77 Blood Pressure Mean [Right Arm] 94 Blood Pressure Source [Right Arm] Automatic Cuff Blood Pressure Position [Right Arm] Supine 02 Sat by Pulse Oximetry 95 97 97 Oxygen Delivery Method Nasal Cannula Nasal Cannula Nasal Cannula Oxygen Flow Rate (LPM) 4 4 4 05/05/25 10:30 05/05/25 11:01 05/05/25 11:30 Temperature Temperature Source Pulse Rate 83 82 91 H Pulse Rate [Right Brachial] Respiratory Rate 22 17 22 Blood Pressure 104/65 L 118/67 124/70 Blood Pressure [Right Arm] Blood Pressure Mean [Right Arm] Blood Pressure Source [Right Arm] Blood Pressure Position [Right Arm] 02 Sat by Pulse Oximetry 96 96 100 Oxygen Delivery Method Nasal Cannula Nasal Cannula Nasal Cannula Oxygen Flow Rate (LPM) 4 4 4 Lab Data Lab Results 05/05/25 08:55: WBC 7.5, RBC 3.29 L, Hgb 10.5 L, Hct 30.7 L, MCV 93.3, MCH 31.9 H, MCHC 34.2, RDW 13.6, Plt Count 277, MPV 9.0, Neut % (Auto) 81.0 H, Lymph % (Auto) 8.7 L, [place] % (Auto) 8.2, Eos % (Auto) 0.1, Baso % (Auto) 0.3, Neut # (Auto) 6.1, Lymph # (Auto) 0.7, [place] # (Auto) 0.6, Eos # (Auto) 0.0, Baso # (Auto) 0.0, VBG pH 7.43 H, VBG pCO2 37.1, VBG pO2 114.4 H, VBG HCO3 23.8, VBG Total CO2 24.9, VBG O2 Saturation 98.4 H, VBG Base Excess -0.6, VBG Lactic Acid 2.1 H, Sodium 131 L, Potassium 4.2, Chloride 96 L, Carbon Dioxide 27, Anion Gap 12.2, BUN 33 H, Creatinine 1.20 H, Estimated Creat Clear 79, Estimated GFR 45 L, Est GFR ( Amer) 54 L, Glucose 133 H, Calcium 9.8, Magnesium 1.8, Total Bilirubin 0.5, AST 21, ALT 22, Alkaline Phosphatase 33 L, Troponin I < 0.01, NT-Pro-B Natriuret Pep 437 H, Total Protein 6.2 L, Albumin 3.7, Globulin 2.5, Albumin/Globulin Ratio 1.5, Lipase 54, TSH 1.91, Free T4 1.56 05/05/25 09:10: SARS-CoV-2 (PCR) Not detected, Influenza Type A (PCR) Not detected, Influenza Type B (PCR) Not detected, RSV (PCR) Not detected, Rhinovirus (PCR) Not detected 05/05/25 11:11: Urine Color Yellow, Urine Appearance Sl cloudy, Urine pH 8.0, Ur Specific [place] 1.010, Urine Protein Negative, Urine Glucose (UA) Negative, Urine Ketones Negative, Urine Blood 2+, Urine Nitrate Positive A, Urine Bilirubin Negative, Urine Urobilinogen 1.0, Ur Leukocyte Esterase 2+ A, Urine RBC 5-10, Urine WBC 10-20 A, Ur Squamous Epith Cells None, Urine Bacteria 3+ A 05/05/25 08:55 05/05/25 08:55 Orders (Tests/Meds): ED MEDICATIONS Generic Name Dose Route Start Last Admin Trade Name Freeliseo PRN Reason Stop Dose Admin Methylprednisolone Sodium Succinate 125 mg 05/05/25 12:07 Methylprednisolone Sod Succ 125mg Vial IV 05/05/25 12:08 ONCE ONE Sodium Chloride 10 ml 05/05/25 09:48 Sodium Chloride 0.9% 10ml Syr (Rad Only) IV 06/04/25 09:47 NEEDED PRN Maintain IV Site Discontinued Medications Generic Name Dose Route Start Last Admin Trade Name Freq PRN Reason Stop Dose Admin Lactated Ringer's 500 mls @ 999 mls/hr 05/05/25 09:03 05/05/25 10:05 Lactated Ringer's 500ml IV 05/05/25 09:33 Infused .Q31M ONE Infusion Ceftriaxone Sodium 1 gm/ 50 mls @ 100 mls/hr 05/05/25 11:31 05/05/25 12:08 Sodium Chloride IV 05/05/25 12:00 Infused ONCE ONE Infusion Doxycycline Hyclate 100 mg/ 250 mls @ 166.667 mls/hr 05/05/25 11:30 05/05/25 11:46 Sodium Chloride IV 05/05/25 11:31 166.67 mls/hr ONCE ONE Administration Iopamidol 160 ml 05/05/25 09:48 05/05/25 09:50 Iopamidol-370 (76%);100ml Bottle IV 05/05/25 09:49 160 ml ONCE ONE Administration Sodium Chloride 50 ml 05/05/25 09:48 05/05/25 09:50 0.9 % Sodium Chloride 50 Ml Vial IV 05/05/25 09:49 50 ml ONCE ONE Administration ORDERS Category Date Time Status CT abdomen pelvis w con Stat Cat Scan 05/05/25 09:[address] angio chest PE protocol Stat Cat Scan 05/05/25 09:[address] angio head Stat Cat Scan 05/05/25 09:[address] angio neck Stat Cat Scan 05/05/25 09:[address] head/brain wo con Stat Cat Scan 05/05/25 09:00 Completed POCUS Point of Care (ER Only) Stat Exams 05/05/25 09:00 Completed BNP [NT Pro Brain Natriuretic Pep.] Stat Lab 05/05/25 08:55 Completed CBC w/Auto Diff [Complete Blood Count Auto Diff] Stat Lab 05/05/25 08:55 Completed CMP [Comprehensive Metabolic Panel] Stat Lab 05/05/25 08:55 Completed Free T4 (Free Thyroxine) Stat Lab 05/05/25 08:55 Completed Free Valproic Acid (Depakote) Routine Lab 05/05/25 08:55 Received Lipase Stat Lab 05/05/25 08:55 Completed MG [Magnesium] Stat Lab 05/05/25 08:55 Completed Mini Respiratory Panel Stat Lab 05/05/25 09:10 Completed TSH [Thyroid Stimulating Hormone] Stat Lab 05/05/25 08:55 Completed Trop I [Troponin I] Stat Lab 05/05/25 08:55 Completed Troponin I Q3H Lab 05/05/25 12:15 Ordered Troponin I Q3H Lab 05/05/25 15:15 Ordered Urinalysis (cathed specimen) Stat Lab 05/05/25 11:11 Completed Blood Culture Stat Micro 05/05/25 10:01 Received Urine Culture(cathed specimen) Stat Micro 05/05/25 11:11 Received VBG [Venous Blood Gas] Stat RT 05/05/25 08:55 Completed ECG Data Tracing #1: Independently interpreted by me rate is 93, rhythm is largely regular with intermittent PVCs, no ST elevation in anatomical contiguous leads, QTc 394. Medical Decision Narrative: In summary patient is a 65-year-old female with past medical history described above who presents emergency department for evaluation of encephalopathy. Patient is a very comorbid state, he is able to intermittently converse and is slow to speech upon arrival. She has focal neurologic deficits at baseline with her sequela from her previous stroke, she is usually able to lift right lower leg against gravity and is able to intermittently do so although per report is slower than normal. Patient is intermittently able to follow commands. She stating that she has abdominal pain. Workup in totality will be conducted with broad CT imaging of the head thorax abdomen, hematologic labs, urinalysis. Fingerstick blood glucose nonactionable. Vneab-wq-ruxy ultrasound at bedside shows no large pericardial effusion, grossly normal ejection fraction given hypovolemia will give gentle crystalloid resuscitation. Full sepsis bolus was considered but will be deferred at this time. Patient is in hypoxic respiratory failure on 4 L nasal cannula but is largely clear to auscultation. EKG intermittent PVCs. Hematologic labs reviewed by me no significant leukocytosis, mild transfusable anemia, compensated acid-base status no ANTHONY or critical electrolyte abnormality. Initial troponin undetectably low, slightly elevated BNP, urinalysis interpreted by me and is consistent with infection, CT imaging patchy ground glass opacities in both lungs edema versus infection stable lung nodule. With respect to the abdomen there is a 2 cm midpole left kidney hypodensity for which differential includes mass versus infection. Given this in totality as well as patient's allergies to azithromycin levofloxacin antibiotic plan will be conducted with ceftriaxone and azithromycin. Given presumed severe bibasilar pneumonia will give steroids. Patient has good air movement and compensated acid-base status DuoNebs were considered will be deferred. Case was discussed with hospital medicine regarding management they will admit the patient to their service for continued evaluation at this time. Procedure performed was cardiac ultrasound, procedure performed by Renan Muñoz Indication: Shortness of breath Identified cardiac views: Cardiac parasternal long axis, apical four-chamber Findings: Cardiac activity present, gross wall motion normal, pericardial effusion absent, grossly normal ejection fraction Impression: - From above Images were saved to permanent archive The study was technically adequate CPT: 11056 This study was performed by me, and I personally interpreted all images/videos. Based on my clinical judgement, these images were adequate and did not necessitate further imaging. Critical Care Critical Care Time Critical Care Time: Yes Attestation: On 05/05/25, the high probability of a clinically significant, sudden or life threatening deterioration of the following system(s) required my full and direct attention, intervention and personal management. The time I documented below is in addition to time spent performing reported procedures but includes the following listed in this critical care notation. Total Time Total Critical Care Time: 40
[2025-05-05] MEDS: RINGERS SOLUTION,LACTATED 500 ML 999 ML IV (09:07)
--- NOTE | 2025-05-05 09:08 | CT_ITS ---
PROCEDURE INFORMATION: Exam: CTA Head With Contrast, Arteriography Exam date and time: 05/05/2025 9:42 AM Age: 65 years old Clinical indication: Weakness; Additional info: Rle weakness, encephalopathy TECHNIQUE: Imaging protocol: Computed tomographic angiography of the head with contrast. Exam focused on the arteries. 3D rendering (Not supervised by radiologist): MIP and/or 3D reconstructed images were created by the technologist. Radiation optimization: All CT scans at this facility use at least one of these dose optimization techniques: automated exposure control; mA and/or kV adjustment per patient size (includes targeted exams where dose is matched to clinical indication); or iterative reconstruction. Contrast material: ISOVUE 370; Contrast volume: 80 ml; Contrast route: INTRAVENOUS (IV); COMPARISON: CT HEAD/BRAIN WO CON 05/05/2025 9:39 AM FINDINGS: ANTERIOR CIRCULATION: Right internal carotid artery: Intracranial segment is patent with no significant stenosis. No aneurysm. Right middle cerebral artery: No occlusion or significant stenosis. No aneurysm. Right anterior cerebral artery: No occlusion or significant stenosis. No aneurysm. Left internal carotid artery: Intracranial segment is patent with no significant stenosis. No aneurysm. Left middle cerebral artery: No occlusion or significant stenosis. No aneurysm. Left anterior cerebral artery: No occlusion or significant stenosis. No aneurysm. POSTERIOR CIRCULATION: Right vertebral artery: No occlusion or significant stenosis. No aneurysm. Left vertebral artery: No occlusion or significant stenosis. No aneurysm. Basilar artery: No occlusion or significant stenosis. No aneurysm. Right posterior cerebral artery: No occlusion or significant stenosis. No aneurysm. Left posterior cerebral artery: No occlusion or significant stenosis. No aneurysm. Brain: No definite mass, mass effect, or midline shift. Cerebral ventricles: No ventriculomegaly. Bones/joints: Unremarkable. No acute fracture. Soft tissues: Unremarkable. IMPRESSION: No large vessel stenosis or occlusion.
--- NOTE | 2025-05-05 09:08 | CT_ITS ---
PROCEDURE INFORMATION: Exam: CTA Neck With Contrast Exam date and time: 05/05/2025 9:42 AM Age: 65 years old Clinical indication: Weakness; Additional info: Rle weakness, encephalopathy TECHNIQUE: Imaging protocol: Computed tomographic angiography of the neck with contrast. Exam focused on the cervical segments of the vasculature. 3D rendering (Not supervised by radiologist): MIP and/or 3D reconstructed images were created by the technologist. Radiation optimization: All CT scans at this facility use at least one of these dose optimization techniques: automated exposure control; mA and/or kV adjustment per patient size (includes targeted exams where dose is matched to clinical indication); or iterative reconstruction. Contrast material: ISOVUE 370; Contrast volume: 80 ml; Contrast route: INTRAVENOUS (IV); COMPARISON: CT CERVICAL SPINE WO CON 02/12/2021 11:45 AM FINDINGS: Right common carotid artery: No stenosis. No dissection or occlusion. Right internal carotid artery: No stenosis of the extracranial segment. No dissection or occlusion. Right external carotid artery: No occlusion or stenosis of the origin. Left common carotid artery: No stenosis. No dissection or occlusion. Left internal carotid artery: No stenosis of the extracranial segment. No dissection or occlusion. Left external carotid artery: No occlusion or stenosis of the origin. Right vertebral artery: No stenosis. No dissection or occlusion. Left vertebral artery: No stenosis. No dissection or occlusion. Paranasal sinuses: The patient is post exenteration of the nasal air cavity and bilateral maxillary antrostomy. Soft tissues: Normal. No significant soft tissue swelling. Bones/joints: No acute fracture. IMPRESSION: No carotid stenosis. REFERENCES: NASCET CRITERIA. The degree of stenosis in the cervical segment of the internal carotid artery is based on NASCET criteria. Normal is no stenosis. Mild is less than 50% stenosis. Moderate is 50-69% stenosis. Severe is 70% to 99% stenosis. Total occlusion is no detectable patent lumen.
[2025-05-05 09:11] LABS: Hematocrit 30.7 % (37.0-47.0); Hemoglobin 10.5 g/dL (12.2-16.2); Immature Granulocytes % 1.7 %; Mean Corpuscular HGB Conc 34.2 g/dL (31.8-35.4); Mean Corpuscular Hemoglobin 31.9 pg (27.0-31.2); Mean Corpuscular Volume 93.3 fl (81-99); Nucleated Red Blood Cells % 0 %; Platelet Count 277 K/mm3 (142-424); Red Blood Count 3.29 M/mm3 (4.20-5.40); Red Cell Distribution Width-SD 46.9 fL; White Blood Count 7.5 K/mm3 (4.8-10.8)
[2025-05-05 09:12] LABS: Albumin Level 3.7 g/dl (3.5-5.0); Sodium 131 mmol/L (136-145)
[2025-05-05 09:13] LABS: Potassium 4.2 mmoL/L (3.5-5.1)
--- OUTSIDE RECORDS SUMMARY | 2025-05-05 09:14 | XMS_ITS | Clinical Summary ---
Author Organization [facility] Address [address] [place] [address] Phone Care Team Providers Care Hollock Maker Name Role Phone Unavailable Primary Care Provider [...] [place]ICARE [place]
[2025-05-05 09:15] LABS: Alanine Aminotransferase 22 U/L (12-78); Albumin/Globulin Ratio 1.5 (1.1-1.8); Alkaline Phosphatase 33 U/L (38-126); Aspartate Amino Transferase 21 U/L (14-36); Bilirubin,Total 0.5 mg/dl (0.2-1.3); Blood Urea Nitrogen 33 mg/dl (7-17); Calcium 9.8 mg/dl (8.4-10.2); Carbon Dioxide 27 mmol/L (22.0-30.0); Creatinine Clearance Estimated 79 mL/min (50-200); Creatinine,Serum 1.20 mg/dl (0.52-1.04); Estimated Glomerular Filt Rate 45 ml/min (>60); GFR (African American) 54 ML/MIN (>60); Globulin 2.5 g/dL (1.3-3.2); Glucose 133 mg/dl (74-100); Lipase 54 U/L (23-300); Total Protein,Serum 6.2 g/dl (6.3-8.2); VBG HCO3 23.8 mmol/L (23-30); VBG PCO2 37.1 mmol/L (35-51); VBG PH 7.43 mmol/L (7.31-7.41); VBG PO2 114.4 mmol/L (28-40)
[2025-05-05 09:16] LABS: Magnesium 1.8 mg/dl (1.6-2.3)
[2025-05-05 09:17] LABS: Lactate Venous 2.1 mmol/L (0.4-2.0)
--- NOTE | 2025-05-05 09:17 | PC.NURSE ---
attemted for cultures. stick unsuccessful. called lab.
[2025-05-05 09:19] LABS: Coronavirus 19, PCR Not Detected (NotDetected); Influenza A, PCR Not Detected (NotDetected); Influenza B, PCR Not Detected (NotDetected)
[2025-05-05 09:42] LABS: Troponin I < 0.01 ng/ml (0.00-0.034)
[2025-05-05 09:43] LABS: NT Pro Brain Natriuretic Pep. 437 pg/mL (0-125)
[2025-05-05 09:46] LABS: Thyroid Stimulating Hormone 1.91 uIU/mL (0.465-4.68)
[2025-05-05] MEDS: 0.9 % SODIUM CHLORIDE 50 ML VIAL IV (09:50)
[2025-05-05] MEDS: IOPAMIDOL-370 (76%);100ML BOTTLE 160 ML IV (09:50)
[2025-05-05 09:51] LABS: Free T4 (Free Thyroxine) 1.56 ng/dl (0.78-2.19)
[2025-05-05 10:04] LABS: Anion Gap 12.2 mEq/L (5-15); Chloride 96 mmol/L (98-107)
[2025-05-05 11:15] LABS: Microscopic,Cath URINE MICROSCOPIC (MICROSCOPIC)
[2025-05-05 11:30] LABS: Appearance,Urine/Cath SL CLOUDY (Clear); Bilirubin,Cath Negative (Negative); Blood, Urine/Cath 2+ (Negative); Color,Urine/Cath YELLOW (Yellow); Glucose,Urine/Cath (UA) Negative (Negative); Ketones,Urine/Cath Negative (Negative); Leukocyte Esterase,Cath 2+ (Negative); Nitrate,Cath POSITIVE (Negative); PH,Urine/Cath 8.0 (5.0-8.5); Protein,Urine/Cath Negative (Negative); Specific Gravity, Urine/Cath 1.010 (1.005-1.030); Urobilinogen,Cath 1.0 EU/dl (0.2)
[2025-05-05 11:46] LABS: Bacteria,Urine/Cath 3+ /lpf
[2025-05-05] MEDS: DOXYCYCLINE HYCLATE 100 MG in 0.9 % SODIUM CHLORIDE 250 ML 166.67 MG IV ×2 (11:46→22:00)
[2025-05-05] MEDS: CEFTRIAXONE 1 GM 1 GM in 0.9 % SODIUM CHLORIDE 50 ML IV (11:47)
--- NOTE | 2025-05-05 12:09 | PC.NURSE ---
print line supervisor contacted for bed.
--- NOTE | 2025-05-05 12:21 | P.HP_ITS ---
<Statement entered by Davi Mckay MD - 05/05/25 16:05> Rounded on patient after nurse practitioner. Personally examined and interviewed patient. Agree with exam findings and care plan as documented. History of Present Illness *Admission Date: 05/05/25 *Reason for visit:: UTI, encephalopathy, bilateral pneumonia *History of present illness: Ms. Molina is a 65-year-old female from [facility] who presented to the emergency department today due to altered mental status. Per report from [facility] staff patient was in her normal state yesterday and reportedly when she was awoken this morning she was difficult to arouse, slower to respond and they felt it was necessary for evaluation by the emergency department so they called EMS. She does have a primary medical history of recurrent UTIs, HTN, COPD, CHF, seizure disorder, schizoaffective disorder, bipolar, CAD, HLD, depression, complex sleep apnea syndrome, obesity, iron deficient anemia. Additionally she has chronic lymphedema of both lower extremities, history of CVA with left-sided residual weakness. She is able to stand with 2 times assist but does not ambulate currently. Patient was assessed in the emergency department and was unable to provide significant medical history due to encephalopathy. She had no focal neurological defects noted. She was able to follow commands. She did complain of abdominal pain. Patient was initially put on 4 L nasal cannula due to hypoxia in the mid 80s, weaned to room air without issues O2 saturation remains greater than 90%. Lab work was remarkable for hemoglobin 10.5, sodium 131 (chronic hyponatremia), creatinine 1.2, no leukocytosis, BNP of 437, serial troponins negative. Imaging of abdomen/pelvis showed hypodensity measuring 2 cm in the midpole of the left kidney may represent infection/malignancy not excluded. Urinalysis notable for positive nitrates, 2+ leuk esterase, 10?20 WBC, 3+ bacteria, 2+ blood. Head, neck CTA showed no acute findings. Chest CTA obtained shows no evidence of PE but diffuse patchy and ground glass appearance in both lungs likely representing edema or infection. Lung nodule largest measuring 7 mm stable since prior exam. [facility] Disclaimer: The information contained in this section may have been updated after the patient was seen, as this information can be updated by other users. Medical History Atypical chest pain Encounter for screening for diabetes mellitus Hypomagnesemia Hypokalemia BMI 40.0-44.9, adult Herpes simplex Neurogenic bladder Urinary retention Lymphedema Pancreatitis Skin cancer Multiple pulmonary nodules Complex sleep apnea syndrome Improved from previous with a compliance equal or greater than 4 hours of 80%, AHI 4.7 Complex sleep apnea syndrome, nocturnal hypoxemia, obesity/hypoventilation. At risk for cardiovascular events. She cannot place/use her iVAPS unless she gets help from nursing staff. Schizoaffective disorder, unspecified HTN (hypertension) Recurrent UTI Colon cancer screening Cardiac dysrhythmia Noted during the night of most recent BiPAP titration (April 2023) Pure hypercholesterolemia, unspecified Seizure disorder COPD (chronic obstructive pulmonary disease) Bilateral lower extremity edema Diabetic foot Lymphedema Onychomycosis Obesity (BMI 30-39.9) LANCE (obstructive sleep apnea) Sepsis History of MRSA infection of lungs Diabetes type 2, controlled Anxiety Acute hypoxemic respiratory failure Hospital-acquired pneumonia Chronic hypercapnic respiratory failure Dysphagia Elevated left ventricular end-diastolic pressure (LVEDP) CAD in [place] artery Hyperlipidemia Vitamin D deficiency, unspecified Obstructive sleep apnea (adult) (pediatric) Acute pancreatitis without necrosis or infection, unspecified Unspecified fracture of left patella, initial encounter for closed fracture Interstitial cystitis Hx of bipolar disorder Migraine GERD (gastroesophageal reflux disease) Depression Mild persistent asthma Personal history of sarcoidosis CHF (congestive heart failure) Anemia Surgical History Status post foot surgery Status post surgical removal of malignant neoplasm of skin History of sinus surgery History of hysterectomy History of dilation and curettage History of section History of colonoscopy Hx of cholecystectomy History of tonsillectomy Family History Other CHF (congestive heart failure) Social History (Updated 05/05/25 @ 12:42 by Emerald Price RN) Smoking Status: Unknown if ever smoked alcohol intake: never substance use type: denies use current occupational status: unemployed Travel in the last 8 weeks?: None household members: caregiver housing: assisted living facility caffeine: No Other Medical History Have you received the Flu Vaccine for this season: No Have you received the Pneumonia Vaccine: Yes (2012, 08/19/24) Review of Systems Review of Systems Review of systems:: unable to obtain Eyes Eyes: Reports system reviewed and no additional complaints, except as documented ENT Ears, Nose, Mouth, and Throat: Reports system reviewed and no additional complaints, except as documented *Gastrointestinal Gastrointestinal: Denies loose stools *Musculoskeletal Musculoskeletal: Reports system reviewed and no additional complaints, except as documented Meds Home Medications and Allergies Home Medications ?Medication ?Instructions ?Recorded ?Confirmed ?Type acetaminophen 500 mg tablet 500 mg PO Q6HP PRN Pain 05/05/25 History ferrous sulfate 325 mg (65 mg 325 mg PO TID Supplement 04/17/20 05/05/25 History iron) tablet fludrocortisone 0.1 mg tablet 0.1 mg PO DAILY Adrenal disease 04/17/20 05/05/25 History omeprazole 20 mg tablet,delayed 20 mg PO DAILY acid re flux 04/17/20 05/05/25 History release polyethylene glycol 3350 17 gram 17 gm PO DAILY CONSTI PATION 10/12/20 05/05/25 History oral powder packet albuterol sulfate 90 mcg/actuation 2 inh inhalation Q6 HP PRN 03/13/21 05/05/25 History aerosol inhaler shortness of breath or wheez ing bisacodyl 10 mg rectal suppository 10 mg ND DAILYP PRN Constipation 03/14/21 05/05/25 History linaclotide 290 mcg capsule 290 mcg PO HS Irritable flip wel 04/27/22 05/05/25 History (Linzess) syndrome bethanechol chloride 25 mg tablet 25 mg PO QID bladder control 30 04/29/22 05/05/25 Rx days #0 tabs aripiprazole 300 mg suspension, 300 mg IM MONTHLY 12/1505/05/25 History extended rel. intramuscular syringe (Brandon Mcclellan) cetirizine 10 mg tablet (Zyrtec) 10 mg PO DAILY 05/05/25 History azelastine 137 mcg (0.1 %) nasal 1 spray intranasal BI D 04/18/23 05/05/25 History spray loperamide 2 mg capsule 2 mg PO Q6H PRN Diarrhea 10/0405/05/25 History meclizine 12.5 mg tablet 12.5 mg PO BIDP Dizziness 05/05/25 History montelukast 10 mg tablet 10 mg PO HS 04/18/23 5 History (Singulair) peg [id number] 1 1 drp ophthalmic (eye) Q6HP PRN 04/18/23 05/05/25 History %-0.2 %-0.2 % eye drops dry eye(s) (Artificial Tears ([id number])) divalproex 500 mg tablet,delayed 500 mg PO BID 4 05/05/25 History release potassium chloride 20 mEq 20 meq PO DAILY 08/08/23 History tablet,extended release magnesium oxide 400 mg PO DAILY #14 tabs 05/05/25 Rx aspirin 81 mg tablet,delayed 81 mg PO DAILY 02/16/24 1 07/06/24 History release atorvastatin 20 mg tablet (Lipitor) 20 mg PO HS 05/05/25 History furosemide 40 mg tablet 40 mg PO DAILY 02/16/2404/15 History metoprolol succinate 25 mg 12.5 mg PO HS 02/16/2404/15 History tablet,extended release 24 hr (Toprol XL) fluticasone propionate 50 2 spray intranasal DAILY 05/0705/05/25 History mcg/actuation nasal spray,suspension (Flonase Allergy Relief) guaifenesin 100 mg/5 mL oral 200 mg PO Q4H PRN Cough 0 05/30/24 05/05/25 History liquid (Robafen) icosapent ethyl 1 gram capsule 2 g PO BID 06/04/24 History (Vascepa) sucralfate 1 gram tablet 1 g PO BID 06/04/24 05/05/25 History terazosin 10 mg capsule 10 mg PO HS 06/04/24 5 History venlafaxine 150 mg 150 mg PO DAILY 06/04/24 History capsule,extended release 24 hr sennosides 8.6 mg tablet (senna) 17.2 mg PO BID 05/05/25 History cranberry fruit 450 mg tablet 900 mg PO DAILY 09/19/24 05/05/25 History fenofibrate nanocrystallized 145 145 mg PO DAILY 09/1905/05/25 History mg tablet lisinopril 5 mg tablet 5 mg PO DAILY 12/19/2405/05 History metformin 500 mg tablet 500 mg PO BID 12/19/2405/05 History lactulose 10 gram/15 mL oral 30 ml PO DAILY PRN Consti pation 01/16/25 05/05/25 History solution gabapentin 300 mg capsule 300 mg PO TID #90 caps 03/0105/05/25 Rx ipratropium 0.5 mg-albuterol 3 mg 3 ml inhalation Q6H PRN soa 03/18/25 05/05/25 History (2.5 mg base)/3 mL nebulization soln ascorbic acid (vitamin C) 500 mg 500 mg PO DAILY 04/0705/05/25 History tablet (Vitamin C) cholecalciferol (vitamin D3) 125 125 mcg PO DAILY 04/1505/05/25 History mcg (5,000 unit) tablet (Vitamin D3) fluticasone furoate 100 1 inh inhalation DAILY 05/0505/05/25 History mcg-vilanterol 25 mcg/dose inhalation powder (Breo Ellipta) magnesium hydroxide 400 mg/5 mL 400 mg PO DAILY 05/05/25 History oral suspension (Milk of Magnesia) ondansetron HCl 4 mg tablet 4 mg PO Q8H PRN nausea 05/05/25 History phenazopyridine 95 mg tablet 95 mg PO TID PRN muscle s pasm 05/05/25 05/05/25 History New Prescriptions to Start Prescriptions: Allergies Allergy/AdvReac Type Severity Reaction Status Date / Time aspirin Allergy Unknown Unknown Verified 04/07/25 10:16 allergy reaction azithromycin Allergy Unknown Unknown Verified 04/07/25 10:16 allergy reaction bupropion (From Wellbutrin Allergy Unknown Unknown Verified 04/07/25 10:16 SR) allergy reaction levofloxacin (From Levaquin) Allergy Unknown Unknown Verified 04/07/25 10:16 allergy reaction erythromycin base AdvReac Unknown Unknown Verified 04/07/25 10:16 allergy reaction tramadol AdvReac Unknown Unknown Verified 04/07/25 10:16 allergy reaction influenza vaccine AdvReac Unknown Unknown Uncoded 04/07/25 10:16 allergy reaction Exam Data for Last 24 hours Vital signs and Labs for Last 24 Hours: Temp Pulse Resp BP Pulse Ox O2 Del Method O2 Flow Rate 99.2 F 91 H 22 124/70 100 Nasal Cannula 4 05/05/25 09:04 05/05/25 11:30 05/05/25 11:30 05/05/25 11:30 05/05/25 11:30 05/05/25 11:30 05/05/25 11:30 Laboratory Results - last 24 hr 05/05/25 08:55: WBC 7.5, RBC 3.29 L, Hgb 10.5 L, Hct 30.7 L, MCV 93.3, MCH 31.9 H, MCHC 34.2, RDW 13.6, Plt Count 277, MPV 9.0, Neut % (Auto) 81.0 H, Lymph % (Auto) 8.7 L, [place] % (Auto) 8.2, Eos % (Auto) 0.1, Baso % (Auto) 0.3, Neut # (Auto) 6.1, Lymph # (Auto) 0.7, [place] # (Auto) 0.6, Eos # (Auto) 0.0, Baso # (Auto) 0.0, VBG pH 7.43 H, VBG pCO2 37.1, VBG pO2 114.4 H, VBG HCO3 23.8, VBG Total CO2 24.9, VBG O2 Saturation 98.4 H, VBG Base Excess -0.6, VBG Lactic Acid 2.1 H, Sodium 131 L, Potassium 4.2, Chloride 96 L, Carbon Dioxide 27, Anion Gap 12.2, BUN 33 H, Creatinine 1.20 H, Estimated Creat Clear 79, Estimated GFR 45 L, Est GFR ( Amer) 54 L, Glucose 133 H, Calcium 9.8, Magnesium 1.8, Total Bilirubin 0.5, AST 21, ALT 22, Alkaline Phosphatase 33 L, Troponin I < 0.01, NT-Pro-B Natriuret Pep 437 H, Total Protein 6.2 L, Albumin 3.7, Globulin 2.5, Albumin/Globulin Ratio 1.5, Lipase 54, TSH 1.91, Free T4 1.56 05/05/25 09:10: SARS-CoV-2 (PCR) Not detected, Influenza Type A (PCR) Not detected, Influenza Type B (PCR) Not detected, RSV (PCR) Not detected, Rhinovirus (PCR) Not detected 05/05/25 11:11: Urine Color Yellow, Urine Appearance Sl cloudy, Urine pH 8.0, Ur Specific [place] 1.010, Urine Protein Negative, Urine Glucose (UA) Negative, Urine Ketones Negative, Urine Blood 2+, Urine Nitrate Positive A, Urine Bilirubin Negative, Urine Urobilinogen 1.0, Ur Leukocyte Esterase 2+ A, Urine RBC 5-10, Urine WBC 10-20 A, Ur Squamous Epith Cells None, Urine Bacteria 3+ A I & O for Last 24 hours: Intake & Output 05/02/25 05/03/25 05/04/25 05/05/25 23:59 23:59 23:59 23:59 Intake Total 550 / 550 Balance 550 / 550 Weight 108.046 kg Constitutional Constitutional: no acute distress *Routine HEENT Exam Head: Present normocephalic and atraumatic Eye: Present PERRL ENT: Present mucous membranes moist *Routine Neck Exam Neck: Present supple *Routine Respiratory Exam Respiratory: Present CTA bilaterally *Routine Cardiovascular Exam Cardiovascular: Present RRR, Normal S1 and Normal S2 *Routine Abdominal Exam Abdominal: Present soft and normoactive bowel sounds; Absent tenderness *Routine Rectal Exam Rectal:: deferred *Routine Genitalia Exam Genitalia:: deferred *Routine Extremities Exam Comments: Lower extremity lymphedema, pressure ulcer left heel *Routine Skin Exam Skin: Present dry, warm and wounds (Pressure ulcer left heel) *Routine Neurological Exam Neurological: Present alert and oriented X3 Assessment and Plan *Assessment and plan (1) UTI (urinary tract infection): Status: Acute Category: Medical Code(s): N39.0 - Urinary tract infection, site not specified (2) Encephalopathy: Status: Acute Category: Medical Code(s): G93.40 - Encephalopathy, unspecified (3) Pneumonia: Status: Acute Category: Medical Code(s): J18.9 - Pneumonia, unspecified organism (4) HTN (hypertension): Status: Chronic Qualifiers: Hypertension type: unspecified Qualified Code(s): I10 - Essential (primary) hypertension Category: Medical Code(s): I10 - Essential (primary) hypertension (5) Depression: Status: Acute Category: Medical Code(s): F32.A - Depression, unspecified (6) Hx of bipolar disorder: Status: Chronic Category: Medical Code(s): Z86.59 - Personal history of other mental and behavioral disorders (7) Schizoaffective disorder, unspecified: Status: Chronic Qualifiers: Schizoaffective disorder type: unspecified Qualified Code(s): F25.9 - Schizoaffective disorder, unspecified Category: Medical Code(s): F25.9 - Schizoaffective disorder, unspecified Plan Ms. Molina is a 65-year-old female who was admitted to the medical surgical floor for urinary tract infection, encephalopathy, and bibasilar pneumonia. Hospital medicine was consulted for continued evaluation and management of patient's conditions, I agreed to admit the patient. Plan of care as follows: #Urinary tract infection #Encephalopathy ? Patient positive for urinary tract infection, initiated on ceftriaxone 1 g daily. Previous urine culture from 03/19/2025 sensitive to ceftriaxone. Will continue to follow current culture. Patient has known recurrent urinary tract infections. ? Patient given 1 L bolus in the ED for hydration, continue to monitor. ? Patient oriented to self and location, does not answer other orientation questions. Patient has very flat affect, unsure baseline. Patient does not endorse any complaints during exam. ? No leukocytosis noted. CBC, CMP, magnesium ordered for the a.m. #Bibasilar pneumonia ? Initially patient was hypoxic, O2 saturation mid 80s. Patient weaned to room air upon transfer to [facility]. O2 saturation greater than 90%. Continuous pulse ox in place. Lungs rhonchorous, bilateral lower lobe fine crackles noted. Patient denies shortness of breath. Assessment complicated by patient's body habitus. Patient initiated on doxycycline 100 mg every 12 hours. Additionally given Solu-Medrol IV in the ED. ? Continue Breo inhaler daily, DuoNebs every 6 hours as needed for shortness of breath. ?Lung nodules noted on chest CT, patient follows with pulmonology, last follow- up appointment 01/16/25. Nodules remained stable since last CT. #Schizoaffective disorder/ Depression/ Bipolar ? Patient has a long history of mental health disorders, continue home medication of venlafaxine 150 mg daily. Patient also takes aripiprazole 300 mg intramuscular monthly. Patient saw psychiatric care on March 12. #History of seizure disorder: ? Continue patient's seizure medications of divalproex 500 mg twice daily. #Right heel wound: Patient has known right heel wound, nondraining. Continue to monitor. #Bilateral lower extremity lymphedema: Patient has notable nonpitting 4+ edema bilateral lower extremities, after chart review from previous visits appears patient has longstanding history with lymphedema. #HFpEF/HTN/HLD: Patient is currently hemodynamically stable, echo 07/08 shows normal biventricular systolic function, no stenosis or regurgitation, LVEF of 55%. continue cardiac medications of metoprolol 12.5 at bedtime, lisinopril 5 mg daily, furosemide 40 mg daily, fenofibrate 145 mg daily, Lipitor 20 mg at bedtime, aspirin 81 mg daily, Vascepa 2 g twice daily. Full code Stand with assist?PT/OT eval Diabetic diet VTE?Lovenox 40 mg
--- NOTE | 2025-05-05 12:36 | PC.NURSE ---
arrived by stretcher from ED
--- NOTE | 2025-05-05 12:50 | PC.WOUNDNOTE ---
Heel of left foot; scant amount of serosanguineous drainage
[2025-05-05 12:55] LABS: Troponin I < 0.01 ng/ml (0.00-0.034)
[2025-05-05] MEDS: FERROUS SULFATE 325MG TABLET 325 MG PO ×2 (13:16→20:34)
[2025-05-05] MEDS: METHYLPREDNISOLONE SOD SUCC 125MG VIAL 125 MG IV (13:16)
[2025-05-05] MEDS: BETHANECHOL 25 MG PO ×3 (13:16→20:33)
[2025-05-05 13:18] LABS: Reflex Lactic Add Lactic Reflex
[2025-05-05] MEDS: ACETAMINOPHEN 325MG TAB 650 MG PO (13:23)
--- NOTE | 2025-05-05 13:45 | HMH.PTEV ---
Physical Therapy Evaluation Rehab PT IP Evaluation Start: 05/05/25 12:38 Freq: ONCE Status: Active Protocol: Document 05/05/25 13:41 CHELSEA (Rec: 05/05/25 13:45 PHORJESUS [id number]) Subjective/History History History 65-year-old female with multiple comorbidities including recurrent urinary tract infections, hypertension, COPD not on oxygen at baseline, previous pancreatitis, CHF, seizure disorder on Depakote, previous CVA with left-sided residual who presents emergency department for evaluation of encephalopathy. History is obtained by patient, EMS, alf. Patient was in her normal state of health yesterday when reportedly this morning she was more difficult to arouse and slower to speech causing them to become concerned to present here for continued evaluation. No trauma. Patient normally has conversational baseline. She has chronic lymphedema of both her lower extremities. En route blood pressure was 80s over 50s. Patient is complaining of abdominal pain but denies chest pain. She is slow to speech but can answer questions when given repeatedly. No other acute complaints at this time. Subjective Subjective Pt is resident of a local SNF and requires some assistance with all ADLs and mobility at baseline. She is currently unable to answer many questions due to her medical condition at this time. She does agree to mobility assessment. [facility] How much help from another person do you currently need... Turning from your A little back to your side while in a flat bed without using bedrails? Moving from lying on A little back to sitting on the side of a flat bed without using bedrails? Moving to and from a A lot bed to a chair ( including a wheelchair)? Standing up from a A lot chair using your arms? (e.g., wheelchair, bedside chair) Walking in hospital A lot room? Climbing 3-5 steps A lot with a railing? Mobility Score 14 Mobility Level [facility] Mobility 4 Move to chair/commode Mobility Calculator Rehab PT IP Eval Objective Appearance Patient Behavior Appropriate Patient Orientation Person Difficulty following none instructions Speech Pattern Delayed Ambulation Patient Able to No Ambulate Balance Ability to Arise Able, uses arms to help Sitting Balance Leans or slides in chair Standing Balance Unsteady Dynamic Sitting Poor Balance Ability Dynamic Standing Poor Balance Ability Transfers Bed Transfer Ability Minimal x 1 (25% assist) Sit to Stand Bed Maximum x 1 (75% assist) Transfer Ability Rehab PT IP prob,goals,plan Problems Date of Evaluation: 05/05/25 PT IP Problems Bed Mobility,Transfers,Gait,Balance,Self care,Safety Rehab Potential Rehab Potential Good Plan PT Intervention Plan Bed Mobility,Transfers,Gait,Balance,Self care,Safety, Therapeutic Exercise PT Plan Frequency Daily Duration LOS Discharge Goals Bed Transfer Ability Contact Guard/Hand Hold Sit to Stand Chair Moderate x 1 (50% assist) Transfer Ability Discharge Plan PT Discharge Plan Pt is currently most appropriate for rehab placement once medically stable for d/c. Skilled acute therapy is indicated to improve transfers, increase statoc and dynamic sitting balance, and increased ability to perform ADLs in order to return pt to [facility]. Eval Complexity Eval Charge Codes 35522 - High Complexity PHYSICIAN CERTIFICATION: I certify the specified therapy services for Johanny Molina are required, authorized, and reviewed every 30 days.
--- NOTE | 2025-05-05 13:47 | HMH.OTEV ---
OT Evaluation Rehab OT IP Evaluation Start: 05/05/25 12:38 Freq: ONCE Status: Active Protocol: Document 05/05/25 13:43 RMARSHALL (Rec: 05/05/25 13:47 [facility] [id number]) Rehab OT IP Assessment Subjective History History and physical: Patient is a 65-year-old female with multiple comorbidities including recurrent urinary tract infections, hypertension, COPD not on oxygen at baseline, previous pancreatitis, CHF, seizure disorder on Depakote, previous CVA with left-sided residual who presents emergency department for evaluation of encephalopathy. History is obtained by patient, EMS, care home. Patient was in her normal state of health yesterday when reportedly this morning she was more difficult to arouse and slower to speech causing them to become concerned to present here for continued evaluation. No trauma. Patient normally has conversational baseline. She has chronic lymphedema of both her lower extremities. En route blood pressure was 80s over 50s. Patient is complaining of abdominal pain but denies chest pain. She is slow to speech but can answer questions when given repeatedly. No other acute complaints at this time. Please note that above description of symptoms, in this electronic medical record under categorization of recalled from ER triage doctor by RN are reflective of an initial nursing assessment, however, is not reflective of my full history and physical exam that was personally taken and clarified. Consequentially, this preceding description of symptoms, which may include the patient's categorized chief complaint in the EMR, do not reflect my personal clinical impression , and the ultimate description of history of present illness and patient stated complaints should be deferred to this section of the note. Unless stated otherwise or congruent with this section of the note, additional signs, symptoms, or incongruence should be interpreted as inaccurate with my clinical impression. Subjective Pt unable to answer any orientation questions due to continued confusion. Pt able to answer yes and no questions. Prior to being in the hospital, pt resided at [facility]. Therapist unsure about independence with transfers and ADLs Objective Right Upper Min Limitation <25% Extremity Gross ROM Left Upper Extremity Min Limitation <25% Gross ROM Bed Mobility bed mobility-scooting,bed mobility - supine/sit Assist Level Moderate x 1 (50% assist) Transfer Training Sit/Stand Transfer Assist Level Moderate x 1 (50% assist) Rehab OT IP prob,goals,plan Problems Date of Evaluation: 05/05/25 OT IP Problems Bed Mobility,Transfers,Balance,Self care,Safety Rehab Potential Rehab Potential Good Equipment Needs Assistive Devices Rolling / Wheeled Walker Plan OT intervention Plan Bed Mobility,Transfers,Balance,Self care,Safety, Therapeutic Exercise OT Plan Frequency Daily Duration LOS Discharge Goals Bed Mobility Ability Assistance x1 Sit to Stand Chair Minimal x 1 (25% assist) Transfer Ability Chair Transfer Minimal x 1 (25% assist) Ability Chair Transfer Stand Step Pivot Technique Chair Transfer Rolling Walker Assistive Devices Lower Body Dressing Moderate Assistance Ability Upper Body Dressing Minimal Assistance Ability Performing Toilet Moderate Assistance Hygiene Ability Overall Commode/ Minimal Assistance Toilet Transfer Ability Commode/Toilet Stand Step Pivot Transfer Technique Discharge Plan OT Discharge Plan Pt will continue to be seen for OT services while at [facility]. Pt is most appropriate to return to care home facility once she is medically stable per physician. Pt would benefit from continued skilled therapy services upon returning to SNF. Eval Complexity Eval Charge Codes 13420 - Moderate Complexity PHYSICIAN CERTIFICATION: I certify the specified therapy services for Johanny Molina are required, authorized, and reviewed every 30 days.
--- NOTE | 2025-05-05 15:04 | SW/DCPLANNER ---
Addendum entered by Nadia Santacruz 05/07/25 09:55: I have updated Su cote/ Leo Contreras that once blood cultures result we will discharge on IM vs IV antibiotics. Su confirmed that patient can admit today or tomorrow if ready for discharge. Original Note: Patient currently resides at [facility] level of care. Updated patient information faxed to Su cote/ Leo Contreras. Discharge date is unknown at this time. CM will continue to follow up.
[2025-05-05 15:20] LABS: Lactic Acid Follow Up (RFLX 1) 1.2 mmol/L (0.7-2.1)
--- NOTE | 2025-05-05 15:23 | PC.NURSE ---
Patient is alert to person and place. She is currently on RA w/O2 sats remaining >90%. She complained of a headache after arriving to the floor, tylenol administered with pt reporting relief on reassessment. She has been turned q2hrs. One bm noted per STULL HEWER. Open area to left heel, mepilex dressing in place. Bed is locked and in the lowerst position, call light is within reach.
[2025-05-05 15:34] LABS: Troponin I < 0.01 ng/ml (0.00-0.034)
--- NOTE | 2025-05-05 18:05 | PC.NURSE ---
Pt's o2 sats consistently in upper 80'2, 2L NC applied o2 now > 92%
[2025-05-05] MEDS: SENNA 8.6MG TABLET 17.2 MG PO (20:33)
[2025-05-05] MEDS: ATORVASTATIN 20MG TABLET 20 MG PO (20:33)
[2025-05-05] MEDS: DIVALPROEX 500MG (Delayed-Release) TABLET 500 MG PO (20:34)
[2025-05-05] MEDS: PANTOPRAZOLE 40MG TABLET 40 MG PO (20:34)
[2025-05-05] MEDS: SUCRALFATE 1GM TABLET 1 GM PO (20:34)
[2025-05-05] MEDS: METOPROLOL SUCCINATE XL 25MG TABLET 12.5 MG PO (20:34)
[2025-05-05] MEDS: MONTELUKAST SODIUM 10MG TAB 10 MG PO (20:34)
--- NOTE | 2025-05-05 20:38 | PC.NURSE ---
seizure pads place on bed rails for safety measures.
--- NOTE | 2025-05-05 20:45 | PC.NURSE ---
Addendum entered by Quintin Gordon RN 05/06/25 04:56: patient on 1L, unable to maintain >90% on RA at this time. Addendum entered by Quintin Gordon RN 05/06/25 02:24: patient weaned to RA. SpO2 >90%. Original Note: patient weaned from 2L NC to 1L NC, SpO2 >90%; on continuous pulse ox.
[2025-05-06] VITALS (8 sets, daily range): BP systolic 92–125; BP diastolic 41–64; PULSE 64–80; RESP 16–18; TEMP 36.5–36.7; O2SAT 91–98; BMI 40.6
[2025-05-06 01:54] LABS: Acinetobacter calcoaceticus-ba Not Detected; Bacteroides fragilis Not Detected; CTX-M Detected; Candida auris Not Detected; Candida glabrata Not Detected; Enterobacterales Detected; Enterococcus faecalis Not Detected; Enterococcus faecium Not Detected; IMP Not Detected; KPC Not Detected; Klebsiella aerogenes Not Detected; Klebsiella pneumoniae grp Not Detected; NDM Not Detected; OXA-48-like Not Detected; Salmonella spp. Not Detected; Serratia marcescens Not Detected; Staphylococcus epidermidis Not Detected; Staphylococcus lugdunensis Not Detected; Staphylococcus spp. Not Detected; Stenotrophomonas maltophilia Not Detected; Streptococcus agalactiae(GrpB) Not Detected; Streptococcus pyogenes Group A Not Detected; Streptococcus spp. Not Detected; VIM Not Detected
[2025-05-06 01:59] LABS: Proteus spp. Detected
--- NOTE | 2025-05-06 02:00 | PC.NURSE ---
notified hospitalist of + blood culture
[2025-05-06 05:55] LABS: Hematocrit 28.1 % (37.0-47.0); Hemoglobin 9.5 g/dL (12.2-16.2); Immature Granulocytes % 3.6 %; Mean Corpuscular HGB Conc 33.8 g/dL (31.8-35.4); Mean Corpuscular Hemoglobin 31.8 pg (27.0-31.2); Mean Corpuscular Volume 94.0 fl (81-99); Nucleated Red Blood Cells % 0 %; Platelet Count 257 K/mm3 (142-424); Red Blood Count 2.99 M/mm3 (4.20-5.40); Red Cell Distribution Width-SD 47.4 fL; White Blood Count 5.8 K/mm3 (4.8-10.8)
[2025-05-06 06:06] LABS: Chloride 102 mmol/L (98-107)
[2025-05-06 06:07] LABS: Albumin Level 3.3 g/dl (3.5-5.0); Potassium 3.8 mmoL/L (3.5-5.1); Sodium 134 mmol/L (136-145)
[2025-05-06 06:09] LABS: Anion Gap 7.8 mEq/L (5-15); Blood Urea Nitrogen 25 mg/dl (7-17); Carbon Dioxide 28 mmol/L (22.0-30.0); Creatinine Clearance Estimated 48 mL/min (50-200); Creatinine,Serum 1.00 mg/dl (0.52-1.04); Estimated Glomerular Filt Rate 55 ml/min (>60); GFR (African American) 67 ML/MIN (>60)
[2025-05-06 06:10] LABS: Alanine Aminotransferase 20 U/L (12-78); Albumin/Globulin Ratio 1.3 (1.1-1.8); Alkaline Phosphatase 35 U/L (38-126); Aspartate Amino Transferase 23 U/L (14-36); Bilirubin,Total 0.2 mg/dl (0.2-1.3); Calcium 9.4 mg/dl (8.4-10.2); Globulin 2.5 g/dL (1.3-3.2); Glucose 115 mg/dl (74-100); Magnesium 2.1 mg/dl (1.6-2.3); Total Protein,Serum 5.8 g/dl (6.3-8.2)
--- NOTE | 2025-05-06 08:08 | P.CONPHA_ITS ---
Pharmacy Intervention Comments: MEDICATION RECONCILIATION COMPLETED ON PATIENT USING MAR FROM [facility]. -FELICIANO PEDERSEN, BANGD
--- NOTE | 2025-05-06 08:08 | HMH.PHAINT1 ---
Pharmacy Intervention Comments: MEDICATION RECONCILIATION COMPLETED ON PATIENT USING MAR FROM [facility]. -FELICIANO PEDERSEN, BANGD
[2025-05-06] MEDS: LORATADINE 10MG TABLET 10 MG PO (08:28)
[2025-05-06] MEDS: ASPIRIN EC 81MG TABLET 81 MG PO (08:28)
[2025-05-06] MEDS: FLUDROCORTISONE 0.1MG TABLET 0.1 MG PO (08:28)
[2025-05-06] MEDS: BETHANECHOL 25 MG PO ×4 (08:28→21:02)
[2025-05-06] MEDS: FUROSEMIDE 40 MG TABLET PO (08:28)
[2025-05-06] MEDS: SUCRALFATE 1GM TABLET 1 GM PO ×2 (08:28→21:02)
[2025-05-06] MEDS: LISINOPRIL 5MG TABLET 5 MG PO (08:28)
[2025-05-06] MEDS: DIVALPROEX 500MG (Delayed-Release) TABLET 500 MG PO ×2 (08:28→21:02)
[2025-05-06] MEDS: FENOFIBRATE 134MG CAPSULE 134 MG PO (08:28)
[2025-05-06] MEDS: CHOLECALCIFEROL 1,000 UNITS (25MCG) TABLET 125 MCG PO (08:29)
[2025-05-06] MEDS: POLYETHYLENE GLYCOL 3350 17 GM PACKET PO (08:29)
[2025-05-06] MEDS: FERROUS SULFATE 325MG TABLET 325 MG PO ×3 (08:29→21:02)
[2025-05-06] MEDS: VENLAFAXINE XR 75MG CAPSULE 150 MG PO (08:29)
[2025-05-06] MEDS: SENNA 8.6MG TABLET 17.2 MG PO ×2 (08:32→21:01)
--- NOTE | 2025-05-06 08:40 | HMH.PHAAMS2 ---
- Antimicrobial Stewardship Review culture & sensitivity review Stewardship interventions: culture & sensitivity review, reviewed - no change Comments: URINE CX PENDING, BLOOD CX PRELIMINARY PROTEUS SPP WITH SENSITIVITY PENDING BUT SEROLOGY IS CTX-M POSITIVE, SPUTUM ORDERED BUT UNCOLLECTED. PATIENT ON DOXYCYCLINE FOR PNEUMONIA, MEROPENEM FOR BACTEREMIA. WBC WNL AT 5.8 K/mm3, AFEBRILE.
[2025-05-06] MEDS: MEROPENEM 1 GM in 0.9 % SODIUM CHLORIDE 100 ML IV ×2 (09:18→21:02)
--- NOTE | 2025-05-06 09:48 | P.PN_ITS ---
<Statement entered by Davi Mckay MD - 05/06/25 14:56> Rounded on patient after nurse practitioner. Personally examined and interviewed patient. Agree with exam findings and care plan as documented. Subjective *Date: 05/06/25 *Time: 13:46 Interval history: Patient is feeling much better today, interactive with discussion. Anaerobic blood culture showing gram-negative rods-transition patient from ceftriaxone to meropenem every 8 hour. Patient continues to remain afebrile, normotensive, nontachycardic. Lungs CTA. Will continue with doxycycline for MRSA coverage. Medical Exam Vital signs and Labs for Last 24 Hours: Vital Signs Temp Pulse Pulse Resp BP BP Pulse Ox 05/06/25 09:00 05/06/25 07:53 97.9 F 69 16 123/41 L 91 L 05/06/25 07:52 05/06/25 06:39 97 05/06/25 06:31 05/06/25 04:58 05/06/25 04:00 97.8 F 67 16 98/64 L 98 05/06/25 03:00 05/06/25 01:00 05/06/25 00:00 97.7 F 71 18 107/57 L 96 05/05/25 23:00 05/05/25 20:56 05/05/25 20:00 05/05/25 19:48 98.1 F 78 14 104/68 L 92 L 05/05/25 18:39 05/05/25 17:00 05/05/25 16:00 99.1 F 86 18 128/66 90 L 05/05/25 14:46 05/05/25 13:00 05/05/25 12:45 98.4 F 99 H 20 99/55 L 92 L 05/05/25 12:30 98.5 F 100 H 23 125/73 05/05/25 12:00 96 H 22 136/77 98 05/05/25 11:30 91 H 22 124/70 100 05/05/25 11:01 82 17 118/67 96 05/05/25 10:30 83 22 104/65 L 96 05/05/25 10:00 16 137/74 97 O2 Del Method O2 Flow Rate FiO2 05/06/25 09:00 Nasal Cannula 1 05/06/25 07:53 Nasal Cannula 05/06/25 07:52 Nasal Cannula 1 05/06/25 06:39 Nasal Cannula 1 24 05/06/25 06:31 Nasal Cannula 1 05/06/25 04:58 Nasal Cannula 1 05/06/25 04:00 Nasal Cannula 1 05/06/25 03:00 Room Air 05/06/25 01:00 Nasal Cannula 1 05/06/25 00:00 Nasal Cannula 1 05/05/25 23:00 Nasal Cannula 1 05/05/25 20:56 Nasal Cannula 1 05/05/25 20:00 Nasal Cannula 05/05/25 19:48 Nasal Cannula 2 05/05/25 18:39 Nasal Cannula 2 05/05/25 17:00 Nasal Cannula 2 05/05/25 16:00 Room Air 05/05/25 14:46 Room Air 05/05/25 13:00 Room Air 05/05/25 12:45 Room Air 05/05/25 12:30 Room Air 05/05/25 12:00 Room Air 05/05/25 11:30 Nasal Cannula 4 05/05/25 11:01 Nasal Cannula 4 05/05/25 10:30 Nasal Cannula 4 05/05/25 10:00 Nasal Cannula 4 Intake and Output 05/05/25 05/06/25 05/06/25 23:59 07:59 15:59 Intake Total 620 / 1410 480 / 480 Output Total 100 / 300 200 / 200 Balance 520 / 1110 280 / 280 Intake: Intake, Oral Amount 120 / 360 480 / 480 Intake, Total IV Amount 500 / 1050 Doxycycline Hyclate 100 mg In 0 250 / 250 .9 % Sodium Chloride 250 ml @ 166.667 mls/hr IV ONCE ONE Rx#: [id number] Doxycycline Hyclate 100 mg In 0 250 / 250 .9 % Sodium Chloride 250 ml @ 166.667 mls/hr IV Q12H [facility] Rx#: [id number] Output: Output, Urine Amount 100 / 300 200 / 200 Other: Number of Unmeasured Voids 0 0 Number of Bowel Movements 1 Weight 110.478 kg Patient Weight 05/06/25 23:59 Weight 110.478 kg Laboratory Results - last 24 hr 05/05/25 08:55: Chloride 96 L, Anion Gap 12.2, TSH 1.91, Free T4 1.56 05/05/25 09:10: SARS-CoV-2 (PCR) Not detected, Influenza Type A (PCR) Not detected, Influenza Type B (PCR) Not detected, RSV (PCR) Not detected, Rhinovirus (PCR) Not detected 05/05/25 10:01: A. baumannii (PCR) Not detected, Bacteroides fragilis Not detected, Kylah albicans (PCR) Not detected, Kylah auris (PCR) Not detected, C. glabrata (PCR) Not detected, C. krusei (PCR) Not detected, C. parapsilosis (PCR) Not detected, C. tropicalis (PCR) Not detected, Cryptococcus neoformans PCR Not detected, Enterobacterales (PCR) Detected A, Enterococc faecalis PCR Not detected, Enterococc faecium PCR Not detected, E. coli (PCR) Not detected, H. influenzae DNA Not detected, Klebsiella aerogenes (PCR) Not detected, Klebsiella oxytoca PCR Not detected, K. pneumoniae group (PCR) Not detected, List. monocytogenes PCR Not detected, N. meningitidis (PCR) Not detected, Proteus species (PCR) Detected A, Salmonella spp. (PCR) Not detected, Serratia marcescens PCR Not detected, Staphylococcus sp PCR Not detected, Staph aureus (PCR) Not detected, mecA/C & MREJ Resist Gene Not applicable, mecA/C-Methicil Resis Gene Not applicable, Staph epidermidis (PCR) Not detected, Staph lugdunensis (TEM-PCR) Not detected, S. maltophilia (PCR) Not detected, Streptococcus sp PCR Not detected, S.agalactiae Grp B JAMESON Not detected, Strep pneumoniae (PCR) Not detected, S. pyogenes GrpA JAMESON Not detected, P. aeruginosa (PCR) Not detected, Azul/B-Vanco Res Genes Not applicable, blaIMP Car res Gene PCR Not detected, KPC-Carbap Res Gene PCR Not detected, blaNDM Car Res Gene PCR Not detected, OXA-48 Carbapenem Resis Gene (PCR) Not detected, blaVIM Car Res Gene PCR Not detected, CTX-M Gene Resistance (PCR) Detected A, MCR-1 Resistance Gene Not applicable 05/05/25 11:11: Urine Color Yellow, Urine Appearance Sl cloudy, Urine pH 8.0, Ur Specific Howell 1.010, Urine Protein Negative, Urine Glucose (UA) Negative, Uri ne Ketones Negative, Urine Blood 2+, Urine Nitrate Positive A, Urine Bilirubin Negative, Urine Urobilinogen 1.0, Ur Leukocyte Esterase 2+ A, Urine RBC 5-10, Urine WBC 10-20 A, Ur Squamous Epith Cells None, Urine Bacteria 3+ A 05/05/25 12:22: Troponin I < 0.01 05/05/25 14:42: Lactate 1.2, Troponin I < 0.01 05/06/25 05:42: WBC 5.8, RBC 2.99 L, Hgb 9.5 L, Hct 28.1 L, MCV 94.0, MCH 31.8 H , MCHC 33.8, RDW 13.7, Plt Count 257, MPV 8.6, Neut % (Auto) 68.5, Lymph % (Auto) 16.1, Hardy % (Auto) 11.6 H, Eos % (Auto) 0.0 L, Baso % (Auto) 0.2, Neut # (Auto) 4.0, Lymph # (Auto) 0.9, Hardy # (Auto) 0.7, Eos # (Auto) 0.0, Baso # (Auto) 0.0, Sodium 134 L, Potassium 3.8, Chloride 102, Carbon Dioxide 28, Anion Gap 7.8, BUN 25 H, Creatinine 1.00, Estimated Creat Clear 48, Estimated GFR 55 L , Est GFR ( Amer) 67 D, Glucose 115 H, Calcium 9.4, Magnesium 2.1 D, Total Bilirubin 0.2, AST 23, ALT 20, Alkaline Phosphatase 35 L, Total Protein 5.8 L, Albumin 3.3 L D, Globulin 2.5, Albumin/Globulin Ratio 1.3 Vital Signs Temp Pulse Pulse Resp BP BP Pulse Ox 04/28/22 16:00 97.8 F 61 20 112/82 96 04/28/22 08:00 97.5 F L 62 15 110/63 04/28/22 04:00 98.0 F 67 18 129/57 L 96 04/28/22 00:20 97.6 F 64 20 148/92 H 92 L 04/28/22 00:19 98.9 F 64 22 135/75 04/27/22 19:15 97.8 F 67 18 128/69 97 Intake and Output 04/28/22 04/28/22 04/28/22 07:59 15:59 23:59 Intake Total 720 / 1140 420 / 1140 Output Total 5000 / 5750 750 / 5750 Balance -5000 / -4610 -30 / -4610 420 / -4610 Intake: Intake, Oral Amount 720 / 1140 420 / 1140 Output: Output, Urine Amount 5000 / 5000 Output, Urine Amount (Catheter) 750 / 750 Ramos 750 / 750 Other: Weight 109.316 kg 109 kg Patient Weight 04/28/22 23:59 Weight 109 kg Laboratory Results - last 24 hr 04/27/22 15:55: Urine Color Yellow, Urine Appearance Clear, Urine pH 7.0, Ur Specific Howell 1.010, Urine Protein Negative, Urine Glucose (UA) Negative, Urine Ketones Negative, Urine Blood Negative, Urine Nitrate Negative, Urine Bilirubin Negative, Urine Urobilinogen 0.2, Ur Leukocyte Esterase Negative, Urine RBC None, Urine WBC None, Ur Squamous Epith Cells Occasional, Urine Bacteria None 04/27/22 21:08: WBC 8.6, RBC 4.17 L, Hgb 12.8, Hct 39.4, MCV 94.5, MCH 30.7, MCHC 32.5, RDW 13.0, Plt Count 313, MPV 7.7, Neut % (Auto) 74.8, Lymph % (Auto) 16.4, Hardy % (Auto) 5.5, Eos % (Auto) 2.4, Baso % (Auto) 0.8, Neut # (Auto) 6.5, Lymph # (Auto) 1.4, Hardy # (Auto) 0.5, Eos # (Auto) 0.2, Baso # (Auto) 0.1 04/27/22 21:08: Sodium 137, Potassium 5.1, Chloride 99, Carbon Dioxide 32 H, Anion Gap 11.1, BUN 19 H, Creatinine 0.70, Estimated Creat Clear 87, Estimated GFR 85, Est GFR ( Amer) 102, Glucose 93, Calcium 10.3 H, Troponin I < 0.01, Amylase 841 H*, Lipase 01386 H 04/27/22 21:08: Triglycerides 276 H, Cholesterol 191, LDL Cholesterol Direct 86.54 L, VLDL Cholesterol 55 H, HDL Cholesterol 29 L, Cholesterol/HDL Ratio 6.6 H 04/27/22 23:03: SARS-CoV-2 (PCR) Not detected, Influenza A Untype (PCR) Not detected, Influenza Type B (PCR) Not detected 04/28/22 08:50: Sodium 138, Potassium 4.1, Chloride 100, Carbon Dioxide 32 H, Anion Gap 10.1, BUN 13 D, Creatinine 0.60, Estimated Creat Clear 50, Estimated GFR 101, Est GFR ( Amer) 122, Glucose 66 L D, Calcium 9.8, Total Bilirubin < 0.1 L, AST 26, ALT 29, Alkaline Phosphatase 89, Lactate Dehydrogenase 156 L, Total Protein 5.9 L, Albumin 3.7, Globulin 2.2, Albumin/Globulin Ratio 1.7 I & O for Labs for Last 24 Hours: Intake & Output 05/03/25 05/04/25 05/05/25 05/06/25 23:59 23:59 23:59 23:59 Intake Total 1410 / 1410 480 / 480 Output Total 100 / 300 200 / 200 Balance 1310 / 1110 280 / 280 Weight 107.774 kg 110.478 kg Intake & Output 04/25/22 04/26/22 04/27/22 04/28/22 23:59 23:59 23:59 23:59 Intake Total 1140 / 1140 Output Total 5750 / 5750 Balance -4610 / -4610 Weight 96.162 kg 109 kg Microbiology Reports for the Last 24 Hours: Microbiology 05/05/25 09:35 Blood Blood Culture - Preliminary NO GROWTH AFTER 24 HOURS 05/05/25 10:01 Blood Blood Culture - Preliminary Constitutional: Present no acute distress, morbidly obese, chronically ill appearing and cooperative Head: Present atraumatic and normocephalic ENT: Present normal exam Neck: Present normal inspection Respiratory: Present normal respiratory effort; Absent accessory muscle use, rhonchi, wheezes or crackles Cardiac: Present Reg Rate and Rhythm GI: Present soft, tenderness (LUQ) and normal bowel sounds; Absent distention Extremities: Present normal inspection, full ROM and edema (chronic 3+ in BLE to thigh) Skin: Present intact; Absent erythema Neuro: Present Grossly Intact, alert, awake and moves all extremities Assessment and Plan *Assessment and plan (1) UTI (urinary tract infection): Status: Acute Category: Medical Code(s): N39.0 - Urinary tract infection, site not specified (2) Encephalopathy: Status: Acute Category: Medical Code(s): G93.40 - Encephalopathy, unspecified (3) Pneumonia: Status: Acute Category: Medical Code(s): J18.9 - Pneumonia, unspecified organism (4) HTN (hypertension): Status: Chronic Qualifiers: Hypertension type: unspecified Qualified Code(s): I10 - Essential (primary) hypertension Category: Medical Code(s): I10 - Essential (primary) hypertension (5) Depression: Status: Acute Category: Medical Code(s): F32.A - Depression, unspecified (6) Hx of bipolar disorder: Status: Chronic Category: Medical Code(s): Z86.59 - Personal history of other mental and behavioral disorders (7) Schizoaffective disorder, unspecified: Status: Chronic Qualifiers: Schizoaffective disorder type: unspecified Qualified Code(s): F25.9 - Schizoaffective disorder, unspecified Category: Medical Code(s): F25.9 - Schizoaffective disorder, unspecified Plan Ms. Molina is a 65-year-old female who was admitted to the medical surgical floor for urinary tract infection, encephalopathy, and bibasilar pneumonia. Hospital medicine was consulted for continued evaluation and management of patient's conditions, I agreed to admit the patient. She continues to require inpatient management due to positive blood culture for gram-negative rods, awaiting speciation and sensitivity. Transition from ceftriaxone to meropenem every 8 hours today. Patient doing overall much better, more interactive, states she feels better. Plan of care as follows: #Urinary tract infection #Encephalopathy #Gram-negative bacteremia ? Patient positive for urinary tract infection, initiated on ceftriaxone 1 g daily. Transition to meropenem every 8 hours today. Blood culture positive for gram-negative rods. Will continue to follow current culture. Patient has known recurrent urinary tract infections. ? Patient given 1 L bolus in the ED for hydration, continue to monitor. ? Patient much more interactive today, answers questions appropriately. States she feels much better. Continuing to monitor. ? No leukocytosis noted. CBC, CMP, magnesium ordered for the a.m. #Bibasilar pneumonia ? Initially patient was hypoxic, O2 saturation mid 80s. Patient weaned to room air upon transfer to [facility]. O2 saturation greater than 90%. Continuous pulse ox in place. Patient required supplemental O2 overnight, continuing to wean today as tolerated. Lungs clear to auscultation today. Patient denies shortness of breath. Assessment complicated by patient's body habitus. Patient initiated on doxycycline 100 mg every 12 hours. Additionally given Solu-Medrol IV in the ED. ? Continue Breo inhaler daily, DuoNebs every 6 hours as needed for shortness of breath. ? Lung nodules noted on chest CT, patient follows with pulmonology, last follow- up appointment 01/16/25. Nodules remained stable since last CT. #Schizoaffective disorder/ Depression/ Bipolar ? Patient has a long history of mental health disorders, continue home medication of venlafaxine 150 mg daily. Patient also takes aripiprazole 300 mg intramuscular monthly. Patient saw psychiatric care on March 12. #History of seizure disorder: ? Continue patient's seizure medications of divalproex 500 mg twice daily. #Right heel wound: Patient has known right heel wound, nondraining. Continue to monitor. #Bilateral lower extremity lymphedema: Patient has notable nonpitting 3+ edema bilateral lower extremities, after chart review from previous visits appears patient has longstanding history with lymphedema. #HFpEF/HTN/HLD: Patient is currently hemodynamically stable, echo 07/08 shows normal biventricular systolic function, no stenosis or regurgitation, LVEF of 55%. continue cardiac medications of metoprolol 12.5 at bedtime, lisinopril 5 mg daily, furosemide 40 mg daily, fenofibrate 145 mg daily, Lipitor 20 mg at bedtime, aspirin 81 mg daily, Vascepa 2 g twice daily. Full code Stand with assist?PT/OT eval Diabetic diet VTE?Lovenox 40 mg
[2025-05-06] MEDS: DOXYCYCLINE HYCLATE 100 MG in 0.9 % SODIUM CHLORIDE 250 ML 166.67 MG IV ×2 (10:17→22:07)
[2025-05-06] MEDS: SODIUM CHLORIDE 3% 15ML NEB 3 ML IH (10:26)
--- OUTSIDE RECORDS SUMMARY | 2025-05-06 11:39 | XMS_ITS ---
Laboratory report Created on: April 15, 2025 JESSICA LOPEZ : 1960 Sex: Female Author Organization Unknown PROBLEMS Problems List Code Description RESULTS Laboratory Orders Date Order Code Test 2024-02-16 [id number] HCV ANTIBODY RFX TO QUANT PCR Laboratory Results Date LOINC Test Value Unit Reference Range Interpre tation 2024-02-16 [id number] HCV AB NR NON REACTIVE
--- OUTSIDE RECORDS SUMMARY | 2025-05-06 11:39 | XMS_ITS ---
Laboratory report Created on: April 15, 2025 JESSICA LOPEZ : 1960 Sex: Female Author Organization Unknown PROBLEMS Problems List Code Description RESULTS Laboratory Orders Date Order Code Test 2024-03-26 [id number] HCV ANTIBODY RFX TO QUANT PCR Laboratory Results Date LOINC Test Value Unit Reference Range Interpre tation 2024-03-26 [id number] HCV AB NR NON REACTIVE
--- OUTSIDE RECORDS SUMMARY | 2025-05-06 11:39 | XMS_ITS | Clinical Summary ---
Author Organization [facility] Address [address] [place] [address] Phone Care Team Providers Care Coating Engineer Name Role Phone Unavailable Primary Care Provider [...] MEDICARE [place] B
--- NOTE | 2025-05-06 17:03 | PC.NURSE ---
arrived by w/c from ED
--- NOTE | 2025-05-06 18:18 | PC.NURSE ---
pt resting in bed, turn Q2, A/O x3, prewick in place, call light in reach
--- NOTE | 2025-05-06 21:01 | EXP.EVENT.NO ---
Patient's blood pressure 96/56 at 9 PM. Will hold terazosin 10 mg nightly. However, given patient's history of HFpEF 55% and cardiac dysrhythmia, will administer metoprolol succinate 12.5 mg nightly overnight.
[2025-05-06] MEDS: ATORVASTATIN 20MG TABLET 20 MG PO (21:02)
[2025-05-06] MEDS: PANTOPRAZOLE 40MG TABLET 40 MG PO (21:02)
[2025-05-06] MEDS: MONTELUKAST SODIUM 10MG TAB 10 MG PO (21:02)
[2025-05-06] MEDS: METOPROLOL SUCCINATE XL 25MG TABLET 12.5 MG PO (21:02)
[2025-05-07] VITALS (8 sets, daily range): BP systolic 90–128; BP diastolic 50–60; PULSE 63–72; RESP 16; TEMP 36.6–37.1; O2SAT 90–100; BMI 40.2
--- NOTE | 2025-05-07 03:15 | PC.NURSE ---
Pt has remained alert and oriented and has tolerated 1L nasal cannula. Receiving IV antibiotics. Purewick has remained in place. No complaints at this time, call light within reach.
[2025-05-07 08:27] LABS: Hematocrit 27.8 % (37.0-47.0); Hemoglobin 9.3 g/dL (12.2-16.2); Immature Granulocytes % 3.5 %; Mean Corpuscular HGB Conc 33.5 g/dL (31.8-35.4); Mean Corpuscular Hemoglobin 31.7 pg (27.0-31.2); Mean Corpuscular Volume 94.9 fl (81-99); Nucleated Red Blood Cells % 0 %; Platelet Count 304 K/mm3 (142-424); Red Blood Count 2.93 M/mm3 (4.20-5.40); Red Cell Distribution Width-SD 47.6 fL; White Blood Count 5.6 K/mm3 (4.8-10.8)
[2025-05-07 08:31] LABS: Albumin Level 3.1 g/dl (3.5-5.0); Chloride 100 mmol/L (98-107); Potassium 3.6 mmoL/L (3.5-5.1); Sodium 134 mmol/L (136-145)
[2025-05-07 08:34] LABS: Alanine Aminotransferase 17 U/L (12-78); Albumin/Globulin Ratio 1.3 (1.1-1.8); Alkaline Phosphatase 36 U/L (38-126); Anion Gap 11.6 mEq/L (5-15); Aspartate Amino Transferase 32 U/L (14-36); Bilirubin,Total 0.2 mg/dl (0.2-1.3); Blood Urea Nitrogen 25 mg/dl (7-17); Carbon Dioxide 26 mmol/L (22.0-30.0); Creatinine Clearance Estimated 43 mL/min (50-200); Creatinine,Serum 1.10 mg/dl (0.52-1.04); Estimated Glomerular Filt Rate 50 ml/min (>60); GFR (African American) 60 ML/MIN (>60); Globulin 2.4 g/dL (1.3-3.2); Total Protein,Serum 5.5 g/dl (6.3-8.2)
[2025-05-07 08:35] LABS: Calcium 8.5 mg/dl (8.4-10.2); Glucose 76 mg/dl (74-100); Magnesium 1.8 mg/dl (1.6-2.3)
[2025-05-07] MEDS: VENLAFAXINE XR 75MG CAPSULE 150 MG PO (09:05)
[2025-05-07] MEDS: FLUDROCORTISONE 0.1MG TABLET 0.1 MG PO (09:06)
[2025-05-07] MEDS: CHOLECALCIFEROL 1,000 UNITS (25MCG) TABLET 125 MCG PO (09:07)
[2025-05-07] MEDS: BETHANECHOL 25 MG PO ×4 (09:07→20:14)
[2025-05-07] MEDS: ASPIRIN EC 81MG TABLET 81 MG PO (09:08)
[2025-05-07] MEDS: LORATADINE 10MG TABLET 10 MG PO (09:08)
[2025-05-07] MEDS: LISINOPRIL 5MG TABLET 5 MG PO (09:08)
[2025-05-07] MEDS: DIVALPROEX 500MG (Delayed-Release) TABLET 500 MG PO ×2 (09:09→20:14)
[2025-05-07] MEDS: FUROSEMIDE 40 MG TABLET PO (09:09)
[2025-05-07] MEDS: FERROUS SULFATE 325MG TABLET 325 MG PO ×3 (09:10→20:14)
[2025-05-07] MEDS: FENOFIBRATE 134MG CAPSULE 134 MG PO (09:10)
[2025-05-07] MEDS: SENNA 8.6MG TABLET 17.2 MG PO ×2 (09:11→20:14)
[2025-05-07] MEDS: SUCRALFATE 1GM TABLET 1 GM PO ×2 (09:11→20:14)
[2025-05-07] MEDS: MEROPENEM 1 GM in 0.9 % SODIUM CHLORIDE 100 ML IV ×2 (09:12→20:13)
[2025-05-07] MEDS: POLYETHYLENE GLYCOL 3350 17 GM PACKET PO (09:12)
[2025-05-07] MEDS: ONDANSETRON 4MG/2ML VIAL 4 MG IV (09:16)
--- NOTE | 2025-05-07 10:02 | P.PN_ITS ---
<Statement entered by Davi Mckay MD - 05/07/25 11:12> Rounded on patient after nurse practitioner. Personally examined and interviewed patient. Agree with exam findings and care plan as documented. Subjective *Date: 05/07/25 *Time: 10:45 Interval history: Patient continues to improve, interactive with discussion. Awaiting speciation and sensitivities for blood and urine culture. Receiving meropenem and doxycycline. Anticipate discharge back to nursing facility tomorrow. Medical Exam Vital signs and Labs for Last 24 Hours: Vital Signs Temp Pulse Pulse Resp BP Pulse Ox O2 Del Method 05/07/25 08:00 98.1 F 66 16 128/56 L 95 Nasal Cannula 05/07/25 06:31 Nasal Cannula 05/07/25 06:31 90 L Nasal Cannula 05/07/25 04:56 Nasal Cannula 05/07/25 04:00 98.0 F 63 16 97/60 L 97 Nasal Cannula 05/07/25 03:00 Nasal Cannula 05/07/25 01:00 Nasal Cannula 05/07/25 00:00 97.9 F 70 16 90/50 L 97 Nasal Cannula 05/06/25 23:00 Nasal Cannula 05/06/25 21:00 Nasal Cannula 05/06/25 20:00 Room Air 05/06/25 20:00 97.9 F 80 16 92/56 L 95 Room Air 05/06/25 18:46 Nasal Cannula 05/06/25 16:00 98.1 F 64 16 124/58 L 94 L 05/06/25 12:37 Nasal Cannula 05/06/25 11:56 98 F 68 16 125/50 L 94 L Nasal Cannula 05/06/25 10:27 77 18 05/06/25 10:11 Nasal Cannula O2 Flow Rate FiO2 05/07/25 08:00 05/07/25 06:31 1 05/07/25 06:31 1 24 05/07/25 04:56 1 05/07/25 04:00 05/07/25 03:00 1 05/07/25 01:00 1 05/07/25 00:00 05/06/25 23:00 1 05/06/25 21:00 1 05/06/25 20:00 1 05/06/25 20:00 05/06/25 18:46 1 05/06/25 16:00 05/06/25 12:37 1 05/06/25 11:56 05/06/25 10:27 05/06/25 10:11 1 Intake and Output 05/06/25 05/07/25 05/07/25 23:59 07:59 15:59 Intake Total 580 / 2020 500 / 980 480 / 980 Output Total 950 / 950 Balance 580 / 470 -450 / 30 480 / 30 Intake: Intake, Oral Amount 480 / 1570 250 / 730 480 / 730 Intake, Total IV Amount 100 / 450 250 / 250 Doxycycline Hyclate 100 mg In 0 250 / 250 .9 % Sodium Chloride 250 ml @ 166.667 mls/hr IV Q12H [facility] Rx#: [id number] Meropenem 1 gm In 0.9 % Sodium 100 / 200 Chloride 100 ml @ 100 mls/hr IV Q12H [facility] Rx#:[id number] Output: Output, Urine Amount 950 / 950 Other: Number of Unmeasured Voids 0 Weight 109.633 kg Patient Weight 05/07/25 23:59 Weight 109.633 kg Laboratory Results - last 24 hr 05/07/25 06:39: WBC 5.6, RBC 2.93 L, Hgb 9.3 L, Hct 27.8 L, MCV 94.9, MCH 31.7 H , MCHC 33.5, RDW 13.6, Plt Count 304, MPV 9.0, Neut % (Auto) 52.5, Lymph % (Auto) 26.8, [place] % (Auto) 14.9 H, Eos % (Auto) 1.8, Baso % (Auto) 0.5, Neut # (Auto) 3.0, Lymph # (Auto) 1.5, [place] # (Auto) 0.8, Eos # (Auto) 0.1, Baso # (Auto) 0.0, Sodium 134 L, Potassium 3.6, Chloride 100, Carbon Dioxide 26, Anion Gap 11.6, BUN 25 H, Creatinine 1.10 H, Estimated Creat Clear 43, Estimated GFR 50 L, Est GFR ( Amer) 60, Glucose 76, Calcium 8.5, Magnesium 1.8 D, Total Bilirubin 0.2, AST 32 D, ALT 17, Alkaline Phosphatase 36 L, Total Protein 5.5 L, Albumin 3.1 L, Globulin 2.4, Albumin/Globulin Ratio 1.3 Vital Signs Temp Pulse Pulse Resp BP BP Pulse Ox 04/28/22 16:00 97.8 F 61 20 112/82 96 04/28/22 08:00 97.5 F L 62 15 110/63 04/28/22 04:00 98.0 F 67 18 129/57 L 96 04/28/22 00:20 97.6 F 64 20 148/92 H 92 L 04/28/22 00:19 98.9 F 64 22 135/75 04/27/22 19:15 97.8 F 67 18 128/69 97 Intake and Output 04/28/22 04/28/22 04/28/22 07:59 15:59 23:59 Intake Total 720 / 1140 420 / 1140 Output Total 5000 / 5750 750 / 5750 Balance -5000 / -4610 -30 / -4610 420 / -4610 Intake: Intake, Oral Amount 720 / 1140 420 / 1140 Output: Output, Urine Amount 5000 / 5000 Output, Urine Amount (Catheter) 750 / 750 Ramos 750 / 750 Other: Weight 109.316 kg 109 kg Patient Weight 04/28/22 23:59 Weight 109 kg Laboratory Results - last 24 hr 04/27/22 15:55: Urine Color Yellow, Urine Appearance Clear, Urine pH 7.0, Ur Specific [place] 1.010, Urine Protein Negative, Urine Glucose (UA) Negative, Urine Ketones Negative, Urine Blood Negative, Urine Nitrate Negative, Urine Bilirubin Negative, Urine Urobilinogen 0.2, Ur Leukocyte Esterase Negative, Urine RBC None, Urine WBC None, Ur Squamous Epith Cells Occasional, Urine Bacteria None 04/27/22 21:08: WBC 8.6, RBC 4.17 L, Hgb 12.8, Hct 39.4, MCV 94.5, MCH 30.7, MCHC 32.5, RDW 13.0, Plt Count 313, MPV 7.7, Neut % (Auto) 74.8, Lymph % (Auto) 16.4, [place] % (Auto) 5.5, Eos % (Auto) 2.4, Baso % (Auto) 0.8, Neut # (Auto) 6.5, Lymph # (Auto) 1.4, [place] # (Auto) 0.5, Eos # (Auto) 0.2, Baso # (Auto) 0.1 04/27/22 21:08: Sodium 137, Potassium 5.1, Chloride 99, Carbon Dioxide 32 H, Anion Gap 11.1, BUN 19 H, Creatinine 0.70, Estimated Creat Clear 87, Estimated GFR 85, Est GFR ( Amer) 102, Glucose 93, Calcium 10.3 H, Troponin I < 0.01, Amylase 841 H*, Lipase 01639 H 04/27/22 21:08: Triglycerides 276 H, Cholesterol 191, LDL Cholesterol Direct 8 6.54 L, VLDL Cholesterol 55 H, HDL Cholesterol 29 L, Cholesterol/HDL Ratio 6.6 H 04/27/22 23:03: SARS-CoV-2 (PCR) Not detected, Influenza A Untype (PCR) Not detected, Influenza Type B (PCR) Not detected 04/28/22 08:50: Sodium 138, Potassium 4.1, Chloride 100, Carbon Dioxide 32 H, Anion Gap 10.1, BUN 13 D, Creatinine 0.60, Estimated Creat Clear 50, Estimated GFR 101, Est GFR ( Amer) 122, Glucose 66 L D, Calcium 9.8, Total Bilirubin < 0.1 L, AST 26, ALT 29, Alkaline Phosphatase 89, Lactate Dehydrogenase 156 L, Total Protein 5.9 L, Albumin 3.7, Globulin 2.2, Albumin/Globulin Ratio 1.7 I & O for Labs for Last 24 Hours: Intake & Output 05/04/25 05/05/25 05/06/25 05/07/25 23:59 23:59 23:59 23:59 Intake Total 1410 / 1410 1770 / 2020 980 / 980 Output Total 100 / 300 1400 / 1550 950 / 950 Balance 1310 / 1110 370 / 470 30 / 30 Weight 107.774 kg 110.478 kg 109.633 kg Intake & Output 04/25/22 04/26/22 04/27/22 04/28/22 23:59 23:59 23:59 23:59 Intake Total 1140 / 1140 Output Total 5750 / 5750 Balance -4610 / -4610 Weight 96.162 kg 109 kg Microbiology Reports for the Last 24 Hours: Microbiology 05/05/25 09:35 Blood Blood Culture - Preliminary NO GROWTH AFTER 48 HOURS 05/05/25 10:01 Blood Blood Culture - Preliminary Gram Negative Rods Gram Positive Cocci Constitutional: Present no acute distress, morbidly obese, chronically ill appearing and cooperative Head: Present atraumatic and normocephalic ENT: Present normal exam Neck: Present normal inspection Respiratory: Present normal respiratory effort; Absent accessory muscle use, rhonchi, wheezes or crackles Cardiac: Present Reg Rate and Rhythm GI: Present soft, tenderness (LUQ) and normal bowel sounds; Absent distention Extremities: Present normal inspection, full ROM and edema (chronic 3+ in BLE to thigh) Skin: Present intact; Absent erythema Comment:: Left heel ulceration present on admission Neuro: Present Grossly Intact, alert, awake and moves all extremities Assessment and Plan *Assessment and plan (1) UTI (urinary tract infection): Status: Acute Category: Medical Code(s): N39.0 - Urinary tract infection, site not specified (2) Encephalopathy: Status: Acute Category: Medical Code(s): G93.40 - Encephalopathy, unspecified (3) Pneumonia: Status: Acute Category: Medical Code(s): J18.9 - Pneumonia, unspecified organism (4) HTN (hypertension): Status: Chronic Qualifiers: Hypertension type: unspecified Qualified Code(s): I10 - Essential (primary) hypertension Category: Medical Code(s): I10 - Essential (primary) hypertension (5) Depression: Status: Acute Category: Medical Code(s): F32.A - Depression, unspecified (6) Hx of bipolar disorder: Status: Chronic Category: Medical Code(s): Z86.59 - Personal history of other mental and behavioral disorders (7) Schizoaffective disorder, unspecified: Status: Chronic Qualifiers: Schizoaffective disorder type: unspecified Qualified Code(s): F25.9 - Schizoaffective disorder, unspecified Category: Medical Code(s): F25.9 - Schizoaffective disorder, unspecified Plan Ms. Molina is a 65-year-old female who was admitted to the medical surgical floor for urinary tract infection, encephalopathy, and bibasilar pneumonia. Hospital medicine was consulted for continued evaluation and management of patient's conditions, I agreed to admit the patient. She continues to require inpatient management due to positive blood culture for gram-negative rods, awaiting speciation and sensitivity. Transition from ceftriaxone to meropenem every 8 hours today. Patient doing overall much better, more interactive, states she feels better. Plan of care as follows: Patient continues to improve, anticipate discharge home tomorrow. Awaiting blood and urine culture speciation and sensitivities. #Urinary tract infection #Encephalopathy, resolved #Gram-negative bacteremia ? Patient positive for urinary tract infection, initiated on ceftriaxone 1 g daily. Transitioned to meropenem every 8 hours today. Blood culture positive for gram-negative rods and gram-positive cocci. Will continue to follow current culture for blood and urine. Patient has known recurrent urinary tract infections. ? Patient given 1 L bolus in the ED for hydration, continue to monitor. ? Patient much more interactive today, answers questions appropriately. States she feels much better. Continuing to monitor. ? No leukocytosis noted. CBC, CMP, magnesium ordered for the a.m. #Bibasilar pneumonia ? Initially patient was hypoxic, O2 saturation mid 80s. Patient weaned to room air originally, intermittent use of supplemental oxygen of 2 L nasal cannula. Continuing to wean as tolerated. O2 saturation greater than 90%. Continuous pulse ox in place. Lungs clear to auscultation today. Patient denies shortness of breath. Assessment complicated by patient's body habitus. Patient initiated on doxycycline 100 mg every 12 hours. Additionally given Solu-Medrol IV in the ED. ? Continue Breo inhaler daily, DuoNebs every 6 hours as needed for shortness of breath. ? Lung nodules noted on chest CT, patient follows with pulmonology, last follow- up appointment 01/16/25. Nodules remained stable since last CT. #Schizoaffective disorder/ Depression/ Bipolar ? Patient has a long history of mental health disorders, continue home medication of venlafaxine 150 mg daily. Patient also takes aripiprazole 300 mg intramuscular monthly. Patient saw psychiatric care on March 12. #History of seizure disorder: ? Continue patient's seizure medications of divalproex 500 mg twice daily. #Left heel wound: Patient has known left heel wound, nondraining, present on admission. Continue to monitor. #Bilateral lower extremity lymphedema: Patient has notable nonpitting 3+ edema bilateral lower extremities, after chart review from previous visits appears patient has longstanding history with lymphedema. Stable. #HFpEF/HTN/HLD: Patient is currently hemodynamically stable, echo 07/08 shows normal biventricular systolic function, no stenosis or regurgitation, LVEF of 55%. continue cardiac medications of metoprolol 12.5 at bedtime, lisinopril 5 mg daily, furosemide 40 mg daily, fenofibrate 145 mg daily, Lipitor 20 mg at bedtime, aspirin 81 mg daily, Vascepa 2 g twice daily. Full code Stand with assist?PT/OT eval at baseline Diabetic diet VTE?Lovenox 40 mg
[2025-05-07] MEDS: DOXYCYCLINE HYCLATE 100 MG in 0.9 % SODIUM CHLORIDE 250 ML 300 MG IV (12:16)
[2025-05-07] MEDS: MONTELUKAST SODIUM 10MG TAB 10 MG PO (20:14)
[2025-05-07] MEDS: PANTOPRAZOLE 40MG TABLET 40 MG PO (20:14)
[2025-05-07] MEDS: METOPROLOL SUCCINATE XL 25MG TABLET 12.5 MG PO (20:14)
[2025-05-07] MEDS: ATORVASTATIN 20MG TABLET 20 MG PO (20:14)
[2025-05-07] MEDS: DOXYCYCLINE HYCLATE 100 MG in 0.9 % SODIUM CHLORIDE 250 ML 166 MG IV (23:00)
[2025-05-08 04:00] VITALS: BP 137/63; PULSE 76; RESP 16; TEMP 36.5; O2SAT 95; BMI 40.1
[2025-05-08 07:07] LABS: Hematocrit 29.8 % (37.0-47.0); Hemoglobin 9.9 g/dL (12.2-16.2); Immature Granulocytes % 2.2 %; Mean Corpuscular HGB Conc 33.2 g/dL (31.8-35.4); Mean Corpuscular Hemoglobin 31.5 pg (27.0-31.2); Mean Corpuscular Volume 94.9 fl (81-99); Nucleated Red Blood Cells % 0 %; Platelet Count 274 K/mm3 (142-424); Red Blood Count 3.14 M/mm3 (4.20-5.40); Red Cell Distribution Width-SD 46.7 fL; White Blood Count 4.1 K/mm3 (4.8-10.8)
[2025-05-08 07:22] LABS: Albumin Level 3.3 g/dl (3.5-5.0); Chloride 102 mmol/L (98-107); Potassium 3.7 mmoL/L (3.5-5.1); Sodium 135 mmol/L (136-145)
[2025-05-08 07:25] LABS: Alanine Aminotransferase 20 U/L (12-78); Albumin/Globulin Ratio 1.4 (1.1-1.8); Alkaline Phosphatase 33 U/L (38-126); Anion Gap 11.7 mEq/L (5-15); Aspartate Amino Transferase 29 U/L (14-36); Bilirubin,Total 0.2 mg/dl (0.2-1.3); Blood Urea Nitrogen 22 mg/dl (7-17); Carbon Dioxide 25 mmol/L (22.0-30.0); Creatinine Clearance Estimated 48 mL/min (50-200); Creatinine,Serum 1.00 mg/dl (0.52-1.04); Estimated Glomerular Filt Rate 55 ml/min (>60); GFR (African American) 67 ML/MIN (>60); Globulin 2.3 g/dL (1.3-3.2); Total Protein,Serum 5.6 g/dl (6.3-8.2)
[2025-05-08 07:26] LABS: Calcium 8.6 mg/dl (8.4-10.2); Glucose 91 mg/dl (74-100); Magnesium 1.6 mg/dl (1.6-2.3)
[2025-05-08 07:51] VITALS: BP 119/67; PULSE 66; RESP 18; TEMP 36.8; O2SAT 97
[2025-05-08] MEDS: FERROUS SULFATE 325MG TABLET 325 MG PO ×2 (08:18→13:12)
[2025-05-08] MEDS: FENOFIBRATE 134MG CAPSULE 134 MG PO (08:18)
[2025-05-08] MEDS: POLYETHYLENE GLYCOL 3350 17 GM PACKET PO (08:18)
[2025-05-08] MEDS: SUCRALFATE 1GM TABLET 1 GM PO (08:18)
[2025-05-08] MEDS: FUROSEMIDE 40 MG TABLET PO (08:18)
[2025-05-08] MEDS: FLUDROCORTISONE 0.1MG TABLET 0.1 MG PO (08:19)
[2025-05-08] MEDS: CHOLECALCIFEROL 1,000 UNITS (25MCG) TABLET 125 MCG PO (08:19)
[2025-05-08] MEDS: LISINOPRIL 5MG TABLET 5 MG PO (08:19)
[2025-05-08] MEDS: BETHANECHOL 25 MG PO ×3 (08:19→17:02)
[2025-05-08] MEDS: VENLAFAXINE XR 75MG CAPSULE 150 MG PO (08:19)
[2025-05-08] MEDS: LORATADINE 10MG TABLET 10 MG PO (08:19)
[2025-05-08] MEDS: SENNA 8.6MG TABLET 17.2 MG PO (08:19)
[2025-05-08] MEDS: ASPIRIN EC 81MG TABLET 81 MG PO (08:19)
[2025-05-08] MEDS: DIVALPROEX 500MG (Delayed-Release) TABLET 500 MG PO (08:23)
[2025-05-08] MEDS: MEROPENEM 1 GM in 0.9 % SODIUM CHLORIDE 100 ML IV (08:30)
--- NOTE | 2025-05-08 08:53 | EXP.PHA.CONS ---
Pharmacy Consult Date: 05/08/25 Time: 08:53 Referring provider: DR. RUBY Reason for Consult:: VANCOMYCIN DOSING Allergies Allergy/AdvReac Type Severity Reaction Status Date / Time aspirin Allergy Unknown Unknown Verified 04/07/25 10:16 allergy reaction azithromycin Allergy Unknown Unknown Verified 04/07/25 10:16 allergy reaction bupropion (From Wellbutrin Allergy Unknown Unknown Verified 04/07/25 10:16 SR) allergy reaction levofloxacin (From Levaquin) Allergy Unknown Unknown Verified 04/07/25 10:16 allergy reaction erythromycin base AdvReac Unknown Unknown Verified 04/07/25 10:16 allergy reaction tramadol AdvReac Unknown Unknown Verified 04/07/25 10:16 allergy reaction influenza vaccine AdvReac Unknown Unknown Uncoded 04/07/25 10:16 allergy reaction Home Medications ?Medication ?Instructions ?Recorded ?Confirmed ?Type acetaminophen 500 mg tablet 500 mg PO Q6HP PRN Mild Pain 04/17/20 05/05/25 History (Scale Score 1-4) ferrous sulfate 325 mg (65 mg 325 mg PO TID 04/17/20 05/05/25 History iron) tablet fludrocortisone 0.1 mg tablet 0.1 mg PO DAILY 04/17/20 05/05/25 History omeprazole 20 mg tablet,delayed 20 mg PO DAILY acid reflux 04/17/20 05/05/25 History release polyethylene glycol 3350 17 gram 17 gm PO DAILY 10/12/20 05/05/25 History oral powder packet albuterol sulfate 90 mcg/actuation 2 inh inhalation Q6HP PRN 03/13/21 05/05/25 History aerosol inhaler shortness of breath or wheezing bisacodyl 10 mg rectal suppository 10 mg ID DAILYP PRN Constipation 03/14/21 05/05/25 History linaclotide 290 mcg capsule 290 mcg PO HS Irritable bowel 04/27/22 05/05/25 History (Linzess) syndrome bethanechol chloride 25 mg tablet 25 mg PO QID bladder control 30 04/29/22 05/05/25 Rx days #0 tabs aripiprazole 300 mg suspension, 300 mg IM MONTHLY 01/11/23 05/05/25 History extended rel. intramuscular syringe (Brandon Mcclellan) cetirizine 10 mg tablet (Zyrtec) 10 mg PO DAILY 01/11/23 05/05/25 History azelastine 137 mcg (0.1 %) nasal 1 spray intranasal BID 04/18/23 05/05/25 History spray loperamide 2 mg capsule 2 mg PO Q6HP PRN Diarrhea 04/18/23 05/06/25 History meclizine 12.5 mg tablet 12.5 mg PO BIDP Dizziness 04/18/23 05/05/25 History montelukast 10 mg tablet 10 mg PO HS 04/18/23 05/05/25 History (Singulair) peg 900-[id number] 1 1 drp ophthalmic (eye) Q6HP PRN 04/18/23 05/05/25 History %-0.2 %-0.2 % eye drops dry eye(s) (Artificial Tears ([id number])) divalproex 500 mg tablet,delayed 500 mg PO BID 07/13/23 05/05/25 History release potassium chloride 20 mEq 20 meq PO DAILY 08/08/23 05/05/25 History tablet,extended release magnesium oxide 400 mg PO DAILY #14 tabs 09/27/23 05/05/25 Rx aspirin 81 mg tablet,delayed 81 mg PO DAILY 02/16/24 05/05/25 History release atorvastatin 20 mg tablet (Lipitor) 20 mg PO HS 02/16/24 05/05/25 History furosemide 40 mg tablet 40 mg PO DAILY 02/16/24 05/05/25 History metoprolol succinate 25 mg 12.5 mg PO HS 02/16/24 05/05/25 History tablet,extended release 24 hr (Toprol XL) fluticasone propionate 50 2 spray intranasal DAILY 03/26/24 05/05/25 History mcg/actuation nasal spray,suspension (Flonase Allergy Relief) guaifenesin 100 mg/5 mL oral 200 mg PO Q4HP PRN Cough 05/30/24 05/06/25 History liquid (Robafen) icosapent ethyl 1 gram capsule 2 g PO BID 06/04/24 05/05/25 History (Vascepa) sucralfate 1 gram tablet 1 g PO BID 06/04/24 05/05/25 History terazosin 10 mg capsule 10 mg PO HS 06/04/24 05/05/25 History venlafaxine 150 mg 150 mg PO DAILY 06/04/24 05/05/25 History capsule,extended release 24 hr sennosides 8.6 mg tablet (senna) 17.2 mg PO BID 08/13/24 05/05/25 History cranberry fruit 450 mg tablet 900 mg PO DAILY 09/19/24 05/05/25 History fenofibrate nanocrystallized 145 145 mg PO DAILY 09/19/24 05/05/25 History mg tablet lisinopril 5 mg tablet 5 mg PO DAILY 12/19/24 05/05/25 History metformin 500 mg tablet 500 mg PO BID 12/19/24 05/05/25 History lactulose 10 gram/15 mL oral 30 ml PO DAILYP PRN Constipation 01/16/25 05/06/25 History solution gabapentin 300 mg capsule 300 mg PO TID #90 caps 03/01/25 05/05/25 Rx ipratropium 0.5 mg-albuterol 3 mg 3 ml inhalation Q6HP PRN Shortness 03/18/25 05/06/25 History (2.5 mg base)/3 mL nebulization Of Breath soln ascorbic acid (vitamin C) 500 mg 500 mg PO DAILY 04/07/25 05/05/25 History tablet (Vitamin C) cholecalciferol (vitamin D3) 125 125 mcg PO DAILY 05/05/25 05/05/25 History mcg (5,000 unit) tablet (Vitamin D3) fluticasone furoate 100 1 inh inhalation DAILY 05/05/25 05/05/25 History mcg-vilanterol 25 mcg/dose inhalation powder (Breo Ellipta) magnesium hydroxide 400 mg/5 mL 30 ml PO DAILYP PRN Constipation 05/05/25 05/06/25 History oral suspension (Milk of Magnesia) ondansetron HCl 4 mg tablet 4 mg PO Q8HP PRN nausea 05/05/25 05/06/25 History phenazopyridine 95 mg tablet 190 mg PO TIDP PRN Bladder Spasms 05/05/25 05/06/25 History New Prescriptions to Start Prescriptions: Height: 1.65 m Weight: 109.452 kg Laboratory Results:: Laboratory Results - last 24 hr 05/08/25 06:45: WBC 4.1 L D, RBC 3.14 L, Hgb 9.9 L, Hct 29.8 L, MCV 94.9, MCH 31.5 H, MCHC 33.2, RDW 13.4, Plt Count 274, MPV 8.6, Neut % (Auto) 45.2, Lymph % (Auto) 35.4, [place] % (Auto) 13.8 H, Eos % (Auto) 2.4, Baso % (Auto) 1.0, Neut # (Auto) 1.9, Lymph # (Auto) 1.5, [place] # (Auto) 0.6, Eos # (Auto) 0.1, Baso # (Auto) 0.0, Sodium 135 L, Potassium 3.7, Chloride 102, Carbon Dioxide 25, Anion Gap 11.7, BUN 22 H, Creatinine 1.00, Estimated Creat Clear 48, Estimated GFR 55 L, Est GFR ( Amer) 67, Glucose 91, Calcium 8.6, Magnesium 1.6 D, Total Bilirubin 0.2, AST 29, ALT 20, Alkaline Phosphatase 33 L, Total Protein 5.6 L, Albumin 3.3 L, Globulin 2.3, Albumin/Globulin Ratio 1.4 Medical History: Medical History (Updated 05/05/25 @ 12:09 by Renan Muñoz MD) Atypical chest pain Encounter for screening for diabetes mellitus Hypomagnesemia Hypokalemia BMI 40.0-44.9, adult Herpes simplex Neurogenic bladder Urinary retention Lymphedema Pancreatitis Skin cancer Multiple pulmonary nodules Complex sleep apnea syndrome Schizoaffective disorder, unspecified HTN (hypertension) Recurrent UTI Colon cancer screening Cardiac dysrhythmia Pure hypercholesterolemia, unspecified Seizure disorder COPD (chronic obstructive pulmonary disease) Bilateral lower extremity edema Diabetic foot Lymphedema Onychomycosis Obesity (BMI 30-39.9) LANCE (obstructive sleep apnea) Sepsis History of MRSA infection of lungs Diabetes type 2, controlled Anxiety Acute hypoxemic respiratory failure Hospital-acquired pneumonia Chronic hypercapnic respiratory failure Dysphagia Elevated left ventricular end-diastolic pressure (LVEDP) CAD in [place] artery Hyperlipidemia Vitamin D deficiency, unspecified Obstructive sleep apnea (adult) (pediatric) Acute pancreatitis without necrosis or infection, unspecified Unspecified fracture of left patella, initial encounter for closed fracture Interstitial cystitis Hx of bipolar disorder Migraine GERD (gastroesophageal reflux disease) Depression Mild persistent asthma Personal history of sarcoidosis CHF (congestive heart failure) Anemia Assessment and Plan Assessment and plan all Dx Assessment and Plan for all problems:: Pharmacokinetic dosing service Objective: Patient: Floor: Age: 65 yo Serum creatinine: 1 mg/dL Height: 65.0 Inches Weight (kg): 109 Assessment: IBW (kg): 57.00 Dosing wt(kg): 109 Estimated Creatinine clearance (ml/min): 49.8 CRCL method: Cockcroft and Gault using ibw(default). Drug selected: Vancomycin Loading dose (mg): 0 Vd (liters): 87.2 (factor used: 0.8 L/kg) Jimmy (hr-1): 0.046 Half life (hrs): 15.07 Recommended dose: 1750 mg Interval: 18 hrs Infusion time (hrs): 2.0 Predicted peak (mcg/mL): 34.1 Predicted trough (mcg/mL): 16.33 Total body weight is being used for vancomycin dosing. Recommendations: Give Vancomycin 1750 mg q 18 hrs with an expected Cpeak of 34.1 mcg/ml and an expected Ctrough of 16.33 mcg/ml ----Vanco only - ignore for aminoglycosides----- CLvanco= 4.01 L/hr AUC 0-24 /RALPH Data: RALPH 0.5 mcg/mL: AUC/RALPH: 1163.8 RALPH 1.0 mcg/mL: AUC/RALPH: 581.9 --------- RALPH 1.5 mcg/mL: AUC/RALPH: 387.9 RALPH 2.0 mcg/mL: AUC/RALPH: 290.9
--- NOTE | 2025-05-08 09:31 | HMH.PHAAMS2 ---
- Antimicrobial Stewardship Review culture & sensitivity review Stewardship interventions: culture & sensitivity review (CURRENTLY RECEIVING DOXYCYCLINE, MEROPENEM, AND VANCOMYCIN, WBC 4.1, AFEBRILE, BLD CX POSITIVE FOR PROTEUS, AND STAPH.)
--- NOTE | 2025-05-08 09:34 | P.CONPHA_ITS ---
- Antimicrobial Stewardship Review 48 hour timeout review Stewardship interventions: 48 hour timeout review (CURRENTLY RECEIVING DO XYCYCLINE, MEROPENEM, AND VANCOMYCIN, WBC 4.1, AFEBRILE, BLD CX POSITIVE FOR PROTEUS, AND STAPH.)
--- NOTE | 2025-05-08 09:34 | HMH.PHAAMS2 ---
- Antimicrobial Stewardship Review 48 hour timeout review Stewardship interventions: 48 hour timeout review (CURRENTLY RECEIVING DOXYCYCLINE, MEROPENEM, AND VANCOMYCIN, WBC 4.1, AFEBRILE, BLD CX POSITIVE FOR PROTEUS, AND STAPH.)
[2025-05-08] MEDS: VANCOMYCIN/WATER FOR INJ (PEG) 1.75 GM/350 ML PIGGYBACK IV (09:56)
--- NOTE | 2025-05-08 11:30 | EXP.DC.SUM ---
General Admission date:: 05/05/25 HPI HPI HPI: Ms. Molina is a 65-year-old female from [facility] who presented to the emergency department today due to altered mental status. Per report from [facility] staff patient was in her normal state yesterday and reportedly when she was awoken this morning she was difficult to arouse, slower to respond and they felt it was necessary for evaluation by the emergency department so they called EMS. She does have a primary medical history of recurrent UTIs, HTN, COPD, CHF, seizure disorder, schizoaffective disorder, bipolar, CAD, HLD, depression, complex sleep apnea syndrome, obesity, iron deficient anemia. Additionally she has chronic lymphedema of both lower extremities, history of CVA with left-sided residual weakness. She is able to stand with 2 times assist but does not ambulate currently. Patient was assessed in the emergency department and was unable to provide significant medical history due to encephalopathy. She had no focal neurological defects noted. She was able to follow commands. She did complain of abdominal pain. Patient was initially put on 4 L nasal cannula due to hypoxia in the mid 80s, weaned to room air without issues O2 saturation remains greater than 90%. Lab work was remarkable for hemoglobin 10.5, sodium 131 (chronic hyponatremia), creatinine 1.2, no leukocytosis, BNP of 437, serial troponins negative. Imaging of abdomen/pelvis showed hypodensity measuring 2 cm in the midpole of the left kidney may represent infection/malignancy not excluded. Urinalysis notable for positive nitrates, 2+ leuk esterase, 10?20 WBC, 3+ bacteria, 2+ blood. Head, neck CTA showed no acute findings. Chest CTA obtained shows no evidence of PE but diffuse patchy and ground glass appearance in both lungs likely representing edema or infection. Lung nodule largest measuring 7 mm stable since prior exam. Hospital Course Hospital Course Hospital Course: Ms. Molina is a 65-year-old female who was admitted to the medical surgical floor for urinary tract infection, encephalopathy, and bibasilar pneumonia. #Acute metabolic encephalopathy #UTI #Pneumonia #Proteus mirabilis, Staphylococcus pettenkoferi bacteremia ? Patient presented with weakness, confusion. Found to have Proteus mirabilis UTI, and bacteremia with Proteus mirabilis and Staphylococcus pettenkoferi. ? CT chest on admission also also suspicious for bibasilar pneumonia. ? Clinically improved with IV meropenem, switched to ertapenem 1 g daily for ease of dosing. Staph species sensitive to penicillin. ? Patient is alert and back to baseline today. Very pleasant, conversational. Looking forward to going back to [facility]. ? Discharged with IM ertapenem 1 g daily for 4 more days, next dose on 05/09/2025, and penicillin IV 500 mg 3 times daily for 4 more days. #Schizoaffective disorder/ Depression/ Bipolar ? Patient has a long history of mood disorder, continue home medication of venlafaxine 150 mg daily. Patient also takes aripiprazole 300 mg intramuscular monthly. Patient saw psychiatric care on March 12. #History of seizure disorder ? Continue patient's seizure medications of divalproex 500 mg twice daily. #Left heel wound: Patient has known left heel wound, nondraining, present on admission. #Bilateral lower extremity lymphedema: Patient has notable nonpitting 3+ edema bilateral lower extremities, after chart review from previous visits appears patient has longstanding history with lymphedema. Stable. #HFpEF/HTN/HLD: Patient is currently hemodynamically stable, echo 07/08 shows normal biventricular systolic function, no stenosis or regurgitation, LVEF of 55%. continue cardiac medications of metoprolol 12.5 at bedtime, lisinopril 5 mg daily, furosemide 40 mg daily, fenofibrate 145 mg daily, Lipitor 20 mg at bedtime, aspirin 81 mg daily, Vascepa 2 g twice daily. Total time spent on discharge: 32 minutes on chart review, counseling, documentation, and direct care with patient. Exam Data for Last 24 hours Vital signs and Labs for Last 24 Hours: Temp Pulse Resp BP Pulse Ox O2 Del Method O2 Flow Rate 98.2 F 66 18 119/67 97 Room Air 1 05/08/25 07:51 05/08/25 07:51 05/08/25 07:51 05/08/25 07:51 05/08/25 07:51 05/08/25 09:00 05/08/25 03:00 FiO2 24 05/07/25 06:31 Laboratory Results - last 24 hr 05/08/25 06:45: WBC 4.1 L D, RBC 3.14 L, Hgb 9.9 L, Hct 29.8 L, MCV 94.9, MCH 31.5 H, MCHC 33.2, RDW 13.4, Plt Count 274, MPV 8.6, Neut % (Auto) 45.2, Lymph % (Auto) 35.4, Sibley % (Auto) 13.8 H, Eos % (Auto) 2.4, Baso % (Auto) 1.0, Neut # (Auto) 1.9, Lymph # (Auto) 1.5, Sibley # (Auto) 0.6, Eos # (Auto) 0.1, Baso # (Auto) 0.0, Sodium 135 L, Potassium 3.7, Chloride 102, Carbon Dioxide 25, Anion Gap 11.7, BUN 22 H, Creatinine 1.00, Estimated Creat Clear 48, Estimated GFR 55 L, Est GFR ( Amer) 67, Glucose 91, Calcium 8.6, Magnesium 1.6 D, Total Bilirubin 0.2, AST 29, ALT 20, Alkaline Phosphatase 33 L, Total Protein 5.6 L, Albumin 3.3 L, Globulin 2.3, Albumin/Globulin Ratio 1.4 I & O for Last 24 hours: Intake & Output 05/05/25 05/06/25 05/07/25 05/08/25 23:59 23:59 23:59 23:59 Intake Total 1410 / 1410 177 / 2020 1790 / 1940 980 / 980 Output Total 100 / 300 1400 / 1550 1950 / 1950 1999 Balance 1310 / 1110 370 / 470 -160 / -10 -1020 / -1020 Weight 107.774 kg 110.478 kg 109.633 kg 109.452 kg Microbiology Reports for the Last 24 Hours: Microbiology 05/05/25 10:01 Blood Blood Culture - Final Proteus mirabilis Staphylococcus pettenkoferi 05/05/25 09:35 Blood Blood Culture - Preliminary NO GROWTH AFTER 48 HOURS Constitutional Constitutional: no acute distress and obese *Routine HEENT Exam Head: Present normocephalic Eye: Present EOMI and PERRL ENT: Present mucous membranes moist *Routine Neck Exam Neck: Present supple; Absent lymphadenopathy *Routine Respiratory Exam Respiratory: Present CTA bilaterally *Routine Cardiovascular Exam Cardiovascular: Present RRR *Routine Abdominal Exam Abdominal: Present soft and normoactive bowel sounds; Absent tenderness *Routine Extremities Exam Extremities: Present edema; Absent cyanosis or clubbing *Routine Skin Exam Skin: Present warm; Absent rash *Routine Neurological Exam Neurological: Present alert and oriented X3 Results Data Completed and Pending Labs on day of discharge: Labs from last 24 hours 05/08/25 06:45 WBC 4.1 L D RBC 3.14 L Hgb 9.9 L Hct 29.8 L MCV 94.9 MCH 31.5 H MCHC 33.2 RDW 13.4 Plt Count 274 MPV 8.6 Neut % (Auto) 45.2 Lymph % (Auto) 35.4 Sibley % (Auto) 13.8 H Eos % (Auto) 2.4 Baso % (Auto) 1.0 Neut # (Auto) 1.9 Lymph # (Auto) 1.5 Sibley # (Auto) 0.6 Eos # (Auto) 0.1 Baso # (Auto) 0.0 Sodium 135 L Potassium 3.7 Chloride 102 Carbon Dioxide 25 Anion Gap 11.7 BUN 22 H Creatinine 1.00 Estimated Creat Clear 48 Estimated GFR 55 L Est GFR ( Amer) 67 Glucose 91 Calcium 8.6 Magnesium 1.6 D Total Bilirubin 0.2 AST 29 ALT 20 Alkaline Phosphatase 33 L Total Protein 5.6 L Albumin 3.3 L Globulin 2.3 Albumin/Globulin Ratio 1.4 Preliminary micro results at discharge 05/05/25 09:35 Blood Culture - Preliminary Blood NO GROWTH AFTER 48 HOURS DS: Diagnosis Discharge Diagnosis (1) UTI (urinary tract infection): Status: Acute Code(s): N39.0 - Urinary tract infection, site not specified (2) Encephalopathy: Status: Acute Code(s): G93.40 - Encephalopathy, unspecified (3) Pneumonia: Status: Acute Code(s): J18.9 - Pneumonia, unspecified organism (4) HTN (hypertension): Status: Chronic Code(s): I10 - Essential (primary) hypertension Qualifiers: Hypertension type: unspecified Qualified Code(s): I10 - Essential (primary) hypertension (5) Depression: Status: Acute Code(s): F32.A - Depression, unspecified (6) Hx of bipolar disorder: Status: Chronic Code(s): Z86.59 - Personal history of other mental and behavioral disorders (7) Schizoaffective disorder, unspecified: Status: Chronic Code(s): F25.9 - Schizoaffective disorder, unspecified Qualifiers: Schizoaffective disorder type: unspecified Qualified Code(s): F25.9 - Schizoaffective disorder, unspecified Meds Home Medications and Allergies Home Medications ?Medication ?Instructions ?Recorded ?Confirmed ?Type acetaminophen 500 mg tablet 500 mg PO Q6HP PRN Mild Pain 04/17/20 05/05/25 History (Scale Score 1-4) ferrous sulfate 325 mg (65 mg 325 mg PO TID 04/17/20 05/05/25 History iron) tablet fludrocortisone 0.1 mg tablet 0.1 mg PO DAILY 04/17/20 05/05/25 History omeprazole 20 mg tablet,delayed 20 mg PO DAILY acid reflux 04/17/20 05/05/25 History release polyethylene glycol 3350 17 gram 17 gm PO DAILY 10/12/20 05/05/25 History oral powder packet albuterol sulfate 90 mcg/actuation 2 inh inhalation Q6HP PRN 03/13/21 05/05/25 History aerosol inhaler shortness of breath or wheezing bisacodyl 10 mg rectal suppository 10 mg IA DAILYP PRN Constipation 03/14/21 05/05/25 History linaclotide 290 mcg capsule 290 mcg PO HS Irritable bowel 04/27/22 05/05/25 History (Linzess) syndrome bethanechol chloride 25 mg tablet 25 mg PO QID bladder control 30 04/29/22 05/05/25 Rx days #0 tabs aripiprazole 300 mg suspension, 300 mg IM MONTHLY 01/11/23 05/05/25 History extended rel. intramuscular syringe (Brandon Mcclellan) cetirizine 10 mg tablet (Zyrtec) 10 mg PO DAILY 01/11/23 05/05/25 History azelastine 137 mcg (0.1 %) nasal 1 spray intranasal BID 04/18/23 05/05/25 History spray loperamide 2 mg capsule 2 mg PO Q6HP PRN Diarrhea 04/18/23 05/06/25 History meclizine 12.5 mg tablet 12.5 mg PO BIDP Dizziness 04/18/23 05/05/25 History montelukast 10 mg tablet 10 mg PO HS 04/18/23 05/05/25 History (Singulair) peg [id number] 1 1 drp ophthalmic (eye) Q6HP PRN 04/18/23 05/05/25 History %-0.2 %-0.2 % eye drops dry eye(s) (Artificial Tears ([id number])) divalproex 500 mg tablet,delayed 500 mg PO BID 07/13/23 05/05/25 History release potassium chloride 20 mEq 20 meq PO DAILY 08/08/23 05/05/25 History tablet,extended release magnesium oxide 400 mg PO DAILY #14 tabs 09/27/23 05/05/25 Rx aspirin 81 mg tablet,delayed 81 mg PO DAILY 02/16/24 05/05/25 History release atorvastatin 20 mg tablet (Lipitor) 20 mg PO HS 02/16/24 05/05/25 History furosemide 40 mg tablet 40 mg PO DAILY 02/16/24 05/05/25 History metoprolol succinate 25 mg 12.5 mg PO HS 02/16/24 05/05/25 History tablet,extended release 24 hr (Toprol XL) fluticasone propionate 50 2 spray intranasal DAILY 03/26/24 05/05/25 History mcg/actuation nasal spray,suspension (Flonase Allergy Relief) guaifenesin 100 mg/5 mL oral 200 mg PO Q4HP PRN Cough 05/30/24 05/06/25 History liquid (Robafen) icosapent ethyl 1 gram capsule 2 g PO BID 06/04/24 05/05/25 History (Vascepa) sucralfate 1 gram tablet 1 g PO BID 06/04/24 05/05/25 History terazosin 10 mg capsule 10 mg PO HS 06/04/24 05/05/25 History venlafaxine 150 mg 150 mg PO DAILY 06/04/24 05/05/25 History capsule,extended release 24 hr sennosides 8.6 mg tablet (senna) 17.2 mg PO BID 08/13/24 05/05/25 History cranberry fruit 450 mg tablet 900 mg PO DAILY 09/19/24 05/05/25 History fenofibrate nanocrystallized 145 145 mg PO DAILY 09/19/24 05/05/25 History mg tablet lisinopril 5 mg tablet 5 mg PO DAILY 12/19/24 05/05/25 History metformin 500 mg tablet 500 mg PO BID 12/19/24 05/05/25 History lactulose 10 gram/15 mL oral 30 ml PO DAILYP PRN Constipation 01/16/25 05/06/25 History solution gabapentin 300 mg capsule 300 mg PO TID #90 caps 03/01/25 05/05/25 Rx ipratropium 0.5 mg-albuterol 3 mg 3 ml inhalation Q6HP PRN Shortness 03/18/25 05/06/25 History (2.5 mg base)/3 mL nebulization Of Breath soln ascorbic acid (vitamin C) 500 mg 500 mg PO DAILY 04/07/25 05/05/25 History tablet (Vitamin C) cholecalciferol (vitamin D3) 125 125 mcg PO DAILY 05/05/25 05/05/25 History mcg (5,000 unit) tablet (Vitamin D3) fluticasone furoate 100 1 inh inhalation DAILY 05/05/25 05/05/25 History mcg-vilanterol 25 mcg/dose inhalation powder (Breo Ellipta) magnesium hydroxide 400 mg/5 mL 30 ml PO DAILYP PRN Constipation 05/05/25 05/06/25 History oral suspension (Milk of Magnesia) ondansetron HCl 4 mg tablet 4 mg PO Q8HP PRN nausea 05/05/25 05/06/25 History phenazopyridine 95 mg tablet 190 mg PO TIDP PRN Bladder Spasms 05/05/25 05/06/25 History ertapenem 1 gram solution for 1 g IM DAILY 4 days #4 ea 05/08/25 Rx injection penicillin V potassium 500 mg 500 mg PO TID 4 days #12 tabs 05/08/25 Rx tablet New Prescriptions to Start Prescriptions: ertapeEdgar Linda penicillin V potassium Edgar Lancaster Allergies Allergy/AdvReac Type Severity Reaction Status Date / Time aspirin Allergy Unknown Unknown Verified 04/07/25 10:16 allergy reaction azithromycin Allergy Unknown Unknown Verified 04/07/25 10:16 allergy reaction bupropion (From Wellbutrin Allergy Unknown Unknown Verified 04/07/25 10:16 SR) allergy reaction levofloxacin (From Levaquin) Allergy Unknown Unknown Verified 04/07/25 10:16 allergy reaction erythromycin base AdvReac Unknown Unknown Verified 04/07/25 10:16 allergy reaction tramadol AdvReac Unknown Unknown Verified 04/07/25 10:16 allergy reaction influenza vaccine AdvReac Unknown Unknown Uncoded 04/07/25 10:16 allergy reaction Discharge Plan Disposition Patient Disposition: Xfer [facility] Condition: Fair Discharge Order Discharge Orders: Discharge Order (Routine); Ordered 05/08/25 Ordered By: Edgar Lancaster Follow up Plan Prescriptions/Medication Reconciliation: New ertapenem 1 gram recon soln 1 g IM DAILY 4 Days Qty: 4 0RF penicillin V potassium 500 mg tablet 500 mg PO TID 4 Days Qty: 12 0RF Continued fenofibrate nanocrystallized 145 mg tablet 145 mg PO DAILY cranberry fruit 450 mg tablet 900 mg PO DAILY Rx Instructions: administer with a meal metformin 500 mg tablet 500 mg PO BID lisinopril 5 mg tablet 5 mg PO DAILY ipratropium-albuterol 0.5 mg-3 mg(2.5 mg base)/3 mL solution for nebulization 3 ml inhalation Q6HP PRN (Reason: Shortness Of Breath) cetirizine [Zyrtec] 10 mg tablet 10 mg PO DAILY Abilify Maintena 300 mg suspension,extended rel syring 300 mg IM MONTHLY divalproex 500 mg tablet,delayed release (DR/EC) 500 mg PO BID potassium chloride 20 mEq tablet extended release 20 meq PO DAILY guaifenesin [Robafen] 100 mg/5 mL liquid 200 mg PO Q4HP PRN (Reason: Cough) fluticasone propionate [Flonase Allergy Relief] 50 mcg/actuation spray,suspension 2 spray intranasal DAILY Rx Instructions: administer into each nostril sucralfate 1 gram tablet 1 g PO BID venlafaxine 150 mg capsule,extended release 24hr 150 mg PO DAILY terazosin 10 mg capsule 10 mg PO HS icosapent ethyl [Vascepa] 1 gram capsule 2 g PO BID lactulose 10 gram/15 mL solution 30 ml PO DAILYP PRN (Reason: Constipation) sennosides [senna] 8.6 mg tablet 17.2 mg PO BID ascorbic acid (vitamin C) [Vitamin C] 500 mg tablet 500 mg PO DAILY Artificial Tears([id number]) 1-0.2-0.2 % drops 1 drp ophthalmic (eye) Q6HP PRN (Reason: dry eye(s)) Rx Instructions: each eye loperamide 2 mg capsule 2 mg PO Q6HP PRN (Reason: Diarrhea) meclizine 12.5 mg tablet 12.5 mg PO BIDP azelastine 137 mcg (0.1 %) aerosol,spray 1 spray intranasal BID Rx Instructions: administer into each nostril montelukast [Singulair] 10 mg tablet 10 mg PO HS magnesium oxide 400 mg magnesium tablet 400 mg PO DAILY Qty: 14 0RF gabapentin 300 mg capsule 300 mg PO TID Qty: 90 5RF polyethylene glycol 3350 17 GM powder in packet 17 gm PO DAILY albuterol sulfate 8.5 GM HFA aerosol inhaler 2 inh IH Q6HP PRN (Reason: shortness of breath or wheezing) bisacodyl 10 MG suppository 10 mg RC DAILYP PRN (Reason: Constipation) Linzess 290 mcg Capsule 290 mcg PO HS bethanechol chloride 25 MG tablet 25 mg PO QID 30 Days Qty: 0 0RF furosemide 40 mg tablet 40 mg PO DAILY aspirin 81 mg Tablet,Delayed Release (Dr/Ec) 81 mg PO DAILY atorvastatin [Lipitor] 20 mg tablet 20 mg PO HS metoprolol succinate [Toprol XL] 25 mg tablet extended release 24 hr 12.5 mg PO HS Rx Instructions: take 0.5 tablet daily acetaminophen 500 MG tablet 500 mg PO Q6HP PRN (Reason: Mild Pain (Scale Score 1-4)) ferrous sulfate 325 MG tablet 325 mg PO TID omeprazole 20 MG tablet,delayed release (DR/EC) 20 mg PO DAILY fludrocortisone 0.1 MG tablet 0.1 mg PO DAILY ondansetron HCl 4 mg Tablet 4 mg PO Q8HP PRN (Reason: nausea) magnesium hydroxide [Milk of Magnesia] 400 mg/5 mL Suspension 30 ml PO DAILYP PRN (Reason: Constipation) phenazopyridine 95 mg Tablet 190 mg PO TIDP PRN (Reason: Bladder Spasms) cholecalciferol (vitamin D3) [Vitamin D3] 125 mcg (5,000 unit) Tablet 125 mcg PO DAILY fluticasone furoate-vilanterol [Breo Ellipta] 100-25 mcg/dose Blister With Device 1 inh INHALATION DAILY Problem Reconciliation Problems Reviewed?: Yes Patient Discharge Instructions Patient Instructions: Urinary Tract Infection, Pneumonia in Adults, Stop Light Pneumonia, Stop Light Infection Print Language: Omani Providers Primary Care Provider: Francis Hearn Admit Provider: Davi Mckay Attending Provider: Davi Mckay
[2025-05-08] MEDS: DOXYCYCLINE HYCLATE 100 MG in 0.9 % SODIUM CHLORIDE 250 ML 166 MG IV (11:58)
[2025-05-08] MEDS: ONDANSETRON 4MG/2ML VIAL 4 MG IV (11:58)
[2025-05-08 12:00] VITALS: BP 114/53; PULSE 68; RESP 18; TEMP 36.4; O2SAT 98
[2025-05-08] MEDS: ERTAPENEM SODIUM 1 GM in 0.9 % SODIUM CHLORIDE 50 ML IV (13:48)
[2025-05-08 16:00] VITALS: BP 103/50; PULSE 70; RESP 18; TEMP 37; O2SAT 93
--- NOTE | 2025-05-08 19:22 | PC.NURSE ---
Patient left floor with EMS at 19:22.
== END 2025-05-08 19:22 | DRG 193 ==
LOC: ER 12:09 → 2ND 12:16
PROVIDERS: Admitting Provider Internal Medicine Adolescent Medicine; Emergency Provider Emergency Medicine; PCP Family Medicine; Visit Provider Internal Medicine Adolescent Medicine
DX: J18.9 Pneumonia, unspecified organism (principal); G93.41 Metabolic encephalopathy; N39.0 Urinary tract infection, site not specified; I69.354 Hemiplegia and hemiparesis following cerebral infarction affecting left non-dominant side; J44.0 Chronic obstructive pulmonary disease with (acute) lower respiratory infection; I50.32 Chronic diastolic (congestive) heart failure; R78.81 Bacteremia; F25.9 Schizoaffective disorder, unspecified; I11.0 Hypertensive heart disease with heart failure; G40.909 Epilepsy, unspecified, not intractable, without status epilepticus; F31.9 Bipolar disorder, unspecified; I25.10 Atherosclerotic heart disease of native coronary artery without angina pectoris; E78.5 Hyperlipidemia, unspecified; B96.4 Proteus (mirabilis) (morganii) as the cause of diseases classified elsewhere; B95.7 Other staphylococcus as the cause of diseases classified elsewhere; Z79.82 Long term (current) use of aspirin; Z79.84 Long term (current) use of oral hypoglycemic drugs; Z88.6 Allergy status to analgesic agent; Z88.1 Allergy status to other antibiotic agents; Z88.7 Allergy status to serum and vaccine; Z88.8 Allergy status to other drugs, medicaments and biological substances; S90.922A Unspecified superficial injury of left foot, initial encounter; K21.9 Gastro-esophageal reflux disease without esophagitis; X58.XXXA Exposure to other specified factors, initial encounter
CPT/HCPCS: 36415; 70450; 70496; 70498; 71275; 74177; 80053; 80165; 81001; 82803; 83605; 83690; 83735; 83880; 84439; 84443; 84484; 85025; 87040; 87077; 87086; 87154; 87186; 87631; 89220; 93005; 94640; 97163; 97166; 97530; 99285; J0696; J1335; J1650; J2185; J2405; J2919; J3375; J7050; J7120; Q9967